=== PATIENT | female | born 1945 | race Hispanic/Latino ===

== ENCOUNTER 2018-05-09 15:57 | Observation (INO) | payer OTHER ==
--- NOTE | 2018-05-09 17:32 | RAD REPORT ---
EXAM DESCRIPTION: RAD - Chest Single View - 05/09/2018 5:24 pm CLINICAL HISTORY: Cough;Fever Chest pain. COMPARISON: CHEST SINGLE VIEW dated 07/11/2014; CHEST SINGLE VIEW dated 05/09/2012; CHEST PA AND LAT 2 VIEW dated 05/08/2012; CHEST SINGLE VIEW dated 05/08/2012; THORAX W CONTRAST dated 05/08/2012 FINDINGS: Portable technique limits examination quality. Airspace opacity is present in the left lung base laterally likely pneumonia. Small pleural effusion is also suspected. The heart is normal in size. No displaced fractures.Sternotomy wires noted. IMPRESSION: Lateral left lung base pneumonia.
[2018-05-09 17:53] LABS: Absolute Monocytes 0.5 K/uL (0.1-1.3); Absolute Neutrophil 3.9 K/uL (1.8-8.0); Hematocrit 30.2 % (36.0-45.0); Lymphocytes % 18.4 % (15.3-44.8); MCH 32.3 pg (27.0-35.0); MCV 91.5 fL (80-100); MPV 8.2 fL (7.6-11.3); Monocytes % 9.6 % (3.3-12.3); RBC Red Blood Cell Count 3.29 M/uL (3.86-4.86)
[2018-05-09 18:00] LABS: Protime INR 1.21
[2018-05-09 18:07] LABS: Albumin 3.1 g/dL (3.4-5.0); Bilirubin Direct 0.1 mg/dL (0-0.2); Bilirubin Total 0.4 mg/dL (0.2-1.0); CKMB Creatine Kinase MB 1.1 ng/mL (0.3-3.6); Potassium 3.8 mmol/L (3.5-5.1); Protein, Total 6.8 g/dL (6.4-8.2)
[2018-05-09] MEDS ORDERED: PIPER/TAZO/NS 3.375gm 3.375 GM/100 ML BAG ONE (18:12)
[2018-05-09] MEDS ORDERED: ALBUTEROL 2.5 MG/3 ML NEB SOL ONE (18:12)
[2018-05-09] MEDS ORDERED: HYDROCODONE/CHLORPHEN 5 ML/OSYR ONE (18:12)
[2018-05-09] MEDS ORDERED: IPRATROPIUM BROM 0.5MG/2.5ML ONE (18:12)
[2018-05-09] MEDS ORDERED: NA CHLORIDE 0.9% 1,000 ML ONE (18:12)
--- NOTE | 2018-05-09 20:03 | ER ---
Nurse's Notes [facility] Name: Alyson Ibarra Age: 72 yrs Sex: Female : 1945 Arrival Date: 05/09/2018 Time: 16:02 Bed 5 Private MD: Diagnosis: Pneumonia, unspecified organism Presentation: 05/09 16:20 Presenting complaint: Patient states: Cough for 2 weeks. She was seen at her doctors aj1 office last Friday and was given a Rx for a nebulizer, which she has been using and help but then the cough comes back. Reports chills. Transition of care: patient was not received from another setting of care. Onset of symptoms was April 2018. Risk Assessment: Do you want to hurt yourself or someone else? Patient reports no desire to harm self or others. Initial Sepsis Screen: Does the patient meet any 2 criteria? No. Patient's initial sepsis screen is negative. Does the patient have a suspected source of infection? No. Patient's initial sepsis screen is negative. Care prior to arrival: None. 16:20 Method Of Arrival: Ambulatory [facility] 16:20 Acuity: LETY 3 aj Triage Assessment: 16:28 General: Appears in no apparent distress. comfortable, Behavior is calm, cooperative, aj1 appropriate for age. Pain: Complains of pain in top of head and forehead Pain currently is 9 out of 10 on a pain scale. Quality of pain is described as pressure. Neuro: Level of Consciousness is awake, alert, obeys commands, Oriented to person, place, time, situation, Speech is normal, Facial symmetry appears normal. Cardiovascular: Patient's skin is warm and dry. Respiratory: Reports shortness of breath cough that is productive, Airway is patent Respiratory effort is even, unlabored, Respiratory pattern is regular, symmetrical. Historical: - Allergies: 16:28 Cipro; aj1 - Home Meds: 16:28 Albuterol Nebulizer [Active]; metoprolol succinate 50 mg oral Tb24 1 tab once daily aj1 [Active]; levocetirizine 5 mg oral tab 1 tab once daily [Active]; aspirin 81 mg Oral chew 1 tab once daily [Active]; furosemide 40 mg Oral tab 1.5 tabs once daily [Active]; gabapentin 100 mg oral cap 3 caps twice daily [Active]; losartan 25 mg oral tab 1 tab once daily [Active]; atorvastatin 40 mg oral tab 1 tab once daily [Active]; diphenoxylate-atropine 2.5-0.025 mg Oral tab 1 tabs 2 times per day [Active]; clopidogrel 75 mg oral tab 1 tab once daily [Active]; Lantus Sub-Q [Active]; - PMHx: 16:28 Hypertension; CHF; Diabetes - NIDDM; neuropathy; Hyperlipidemia; CAD; Myocardial aj1 infarction; COPD; - PSHx: 16:28 cardiac cath; open heart surgery; aj1 - Immunization history:: Flu vaccine is not up to date. - Social history:: Smoking status: Patient/guardian denies using tobacco. - Ebola Screening: : Patient denies travel to an Ebola-affected area in the 21 days before illness onset. Screenin:37 Abuse screen: Denies threats or abuse. Denies injuries from another. Nutritional ch screening: No deficits noted. Tuberculosis screening: No symptoms or risk factors identified. Fall Risk None identified. Assessment: 16:37 Reassessment: Patient appears in no apparent distress at this time. Patient and/or ch family updated on plan of care and expected duration. Pain level reassessed. Patient is alert, oriented x 3, equal unlabored respirations, skin warm/dry/pink. 16:48 General: Appears in no apparent distress. comfortable, Behavior is calm, cooperative, ch appropriate for age. Neuro: Level of Consciousness is awake, alert, obeys commands, Oriented to person, place, time, situation, [employer] are equal bilaterally Moves all extremities. Full function Gait is steady, Speech is normal, Facial symmetry appears normal, Facial symmetry: tongue is midline, Pupils are PERRLA. Cardiovascular: Reports shortness of breath, Heart tones S1 S2 present Capillary refill < 3 seconds in bilateral fingers toes Clubbing of nail beds is present Patient's skin is warm and dry. Pulses are all present. Edema is absent. Rhythm is sinus rhythm Chest pain is denied. Respiratory: Airway is patent Trachea midline Respiratory effort is even, unlabored, Breath sounds are clear bilaterally. Breath sounds are diminished in left posterior lower lobe pt states she just did a neb treatment nad that her wheezing went away with the neb treatment. Respiratory: Reports cough that is productive, yellow sputum. GI: Abdomen is round non-distended, Bowel sounds present X 4 quads. Abd is soft and non tender X 4 quads. Reports cramping, diarrhea, since years ago. Derm: Skin is pale. 16:50 Neuro: Reports headache in entire for the past two weeks. EENT: Reports nasal ch congestion sore throat. 18:39 Reassessment: Patient appears in no apparent distress at this time. Patient and/or ch family updated on plan of care and expected duration. Pain level reassessed. Patient is alert, oriented x 3, equal unlabored respirations, skin warm/dry/pink. Patient states feeling better. Patient states symptoms have improved. 18:39 Reassessment: Patient appears in no apparent distress at this time. ch 19:14 Reassessment: Patient appears in no apparent distress at this time. No changes from previously documented assessment. Patient and/or family updated on plan of care and expected duration. Pain level reassessed. Patient is alert, oriented x 3, equal unlabored respirations, skin warm/dry/pink. pt oob to restroom, ambulatory, gait steady, resps even and unlabored. Report given to Oksana HUYNH and Whitney HUYNH. 20:30 Reassessment: Patient appears in no apparent distress at this time. Patient is alert, lp1 oriented x 3, equal unlabored respirations, skin warm/dry/pink. Patient aware of pending admission Patient denies pain at this time. 21:40 Reassessment: Attempted to call report, nurse will call back. lp1 Vital Signs: 16:28 BP 126 / 73; Pulse 84; Resp 18; Temp 98.0(O); Pulse Ox 95% on R/A; Weight 86.18 kg (R); aj1 Height 5 ft. 5 in. (165.10 cm) (R); 16:48 BP 137 / 50; Pulse 81; Resp 18; Pulse Ox 97% on R/A; Pain 8/10; ch 18:39 BP 96 / 51; Pulse 89; Resp 18; Temp 98; Pulse Ox 97% on R/A; Pain 6/10; ch 20:04 BP 131 / 65; Pulse 88; Resp 18; Temp 97.3; Pulse Ox 97% on R/A; aa1 21:00 BP 101 / 67; Pulse 93; Resp 17; Pulse Ox 98% on R/A; lp1 21:30 BP 120 / 66; Pulse 89; Resp 17; Pulse Ox 98% on R/A; Pain 0/10; lp1 21:54 BP 155 / 72; Pulse 90; Resp 16; Temp 97.9; Pulse Ox 98% on R/A; Pain 0/10; lp1 16:28 Body Mass Index 31.62 (86.18 kg, 165.10 cm) aj1 ED Course: 16:02 Patient arrived in ED. mr 16:05 [facility] Cunningham [facility]C [facility]. snw 16:05 Jarrod Bonner MD is Attending Physician. snw 16:22 Triage completed. aj1 16:28 Arm band placed on. aj1 16:30 Patient placed in waiting room, Patient notified of wait time. aj1 16:37 Danuta Geiger, LINO is Primary Nurse. ch 16:37 No apparent distress. Resting quietly. ch 16:37 Patient has correct armband on for positive identification. Placed in gown. Bed in low ch position. Call light in reach. Side rails up X 1. Adult w/ patient. Pulse ox on. NIBP on. Warm blanket given. 16:37 No provider procedures requiring assistance completed. ch 17:10 First set of blood cultures drawn by me. jb1 17:24 Chest Single View XRAY In Process Unspecified. EDMS 17:25 Second set of blood cultures drawn by me. jb1 17:45 Initial lab(s) drawn, by me, sent to lab. Inserted saline lock: 22 gauge in right jb1 antecubital area, using aseptic technique. Blood collected. 20:02 Jarrod Bonner MD is Hospitalizing Provider. snw 21:51 Patient admitted, IV remains in place. lp1 Administered Medications: 18:10 Drug: Tussionex Pennkinetic ER 5 ml Route: PO; ch 18:37 Follow up: Response: No adverse reaction ch 18:43 Follow up: Response: No adverse reaction; Marked relief of symptoms ch 18:20 Drug: Zosyn 3.375 grams Route: IVPB; Infused Over: 60 mins; Site: right antecubital; ch 20:11 Follow up: IV Status: Completed infusion aa1 18:20 Drug: Albuterol - atroVENT (3:1) (2.5 mg - 0.5 mg) 3 ml Route: Nebulizer; ch 18:42 Follow up: Response: No adverse reaction; Marked relief of symptoms 18:20 Drug: NS 0.9% 250 ml Route: IV; Rate: 250 ml/hr; Site: right antecubital; 19:16 Follow up: IV Status: Completed infusion; IV Intake: 250ml ch 18:36 Not Given (wrong order): NS 0.9% (30 ml/kg) 30 ml/kg IV at bolus once; Sepsis Protocol ch Intake: 19:16 IV: 250ml; Total: 250ml. Outcome: 20:03 Decision to Hospitalize by Provider. snw 21:50 Condition: stable lp1 21:50 Instructed on the need for admit. 22:03 Admitted to Tele accompanied by tech, via wheelchair, room 405, with chart, Report lp1 called to LINO Hughes 22:10 Patient left the ED. lp1 Signatures: Dispatcher [employer] EDSalvador Alonso Christina, RN RN Juli Zapata RN RN aj1 Oksana Shipley RN RN aa1 Amira Cunningham, ACETYLENE TORCH BURNER-C ACETYLENE TORCH BURNER-Fior Borjas Laura, RN RN lp1
--- NOTE | 2018-05-09 20:03 | EDPHYS ---
Physician Documentation [facility] Name: Alyson Ibarra Age: 72 yrs Sex: Female : 1945 Arrival Date: 05/09/2018 Time: 16:02 Bed 5 Private MD: Jarrod Marie HPI: 05/09 17:52 This 72 yrs old Female presents to ER via Ambulatory with complaints of Fever, snw Cough. 17:52 The patient reports fever, not measured (subjective). Onset: The symptoms/episode snw began/occurred 2 week(s) ago, and became worse yesterday, and became persistent. Associated signs and symptoms: Pertinent positives: chest pain, cough, decreased appetite, myalgias. Severity of symptoms: At their worst the symptoms were moderate severe. The patient has not experienced similar symptoms in the past. The patient has been recently seen by a physician: the patient's primary care provider, yesterday. started neb treatments on Friday. Historical: - Allergies: 16:28 Cipro; aj1 - Home Meds: 16:28 Albuterol Nebulizer [Active]; metoprolol succinate 50 mg oral Tb24 1 tab once daily aj1 [Active]; levocetirizine 5 mg oral tab 1 tab once daily [Active]; aspirin 81 mg Oral chew 1 tab once daily [Active]; furosemide 40 mg Oral tab 1.5 tabs once daily [Active]; gabapentin 100 mg oral cap 3 caps twice daily [Active]; losartan 25 mg oral tab 1 tab once daily [Active]; atorvastatin 40 mg oral tab 1 tab once daily [Active]; diphenoxylate-atropine 2.5-0.025 mg Oral tab 1 tabs 2 times per day [Active]; clopidogrel 75 mg oral tab 1 tab once daily [Active]; Lantus Sub-Q [Active]; - PMHx: 16:28 Hypertension; CHF; Diabetes - NIDDM; neuropathy; Hyperlipidemia; CAD; Myocardial aj1 infarction; COPD; - PSHx: 16:28 cardiac cath; open heart surgery; aj1 - Immunization history:: Flu vaccine is not up to date. - Social history:: Smoking status: Patient/guardian denies using tobacco. - Ebola Screening: : Patient denies travel to an Ebola-affected area in the 21 days before illness onset. ROS: 17:51 Constitutional: Negative for fever, chills, and weight loss, Eyes: Negative for injury, snw pain, redness, and discharge, ENT: Negative for injury, pain, and discharge, Neck: Negative for injury, pain, and swelling, Abdomen/GI: Negative for abdominal pain, nausea, vomiting, diarrhea, and constipation, Back: Negative for injury and pain, : Negative for injury, bleeding, discharge, and swelling, MS/Extremity: Negative for injury and deformity, Skin: Negative for injury, rash, and discoloration, Neuro: Negative for headache, weakness, numbness, tingling, and seizure, Psych: Negative for depression, anxiety, suicide ideation, homicidal ideation, and hallucinations. 17:51 Cardiovascular: Positive for chest pain, with cough. 17:51 Respiratory: Positive for cough, shortness of breath. Exam: 17:44 Head/Face: Normocephalic, atraumatic. Eyes: Pupils equal round and reactive to light, snw extra-ocular motions intact. Lids and lashes normal. Conjunctiva and sclera are non-icteric and not injected. Cornea within normal limits. Periorbital areas with no swelling, redness, or edema. ENT: Nares patent. No nasal discharge, no septal abnormalities noted. Tympanic membranes are normal and external auditory canals are clear. Oropharynx with no redness, swelling, or masses, exudates, or evidence of obstruction, uvula midline. Mucous membranes moist. Neck: Trachea midline, no thyromegaly or masses palpated, and no cervical lymphadenopathy. Supple, full range of motion without nuchal rigidity, or vertebral point tenderness. No Meningismus. Chest/axilla: Normal chest wall appearance and motion. Nontender with no deformity. No lesions are appreciated. Cardiovascular: Regular rate and rhythm with a normal S1 and S2. No gallops, murmurs, or rubs. Normal PMI, no JVD. No pulse deficits. 17:44 Abdomen/GI: Soft, non-tender, with normal bowel sounds. No distension or tympany. No guarding or rebound. No evidence of tenderness throughout. Back: No spinal tenderness. No costovertebral tenderness. Full range of motion. MS/ Extremity: Pulses equal, no cyanosis. Neurovascular intact. Full, normal range of motion. Neuro: Awake and alert, GCS 15, oriented to person, place, time, and situation. Cranial nerves II-XII grossly intact. Motor strength 5/5 in all extremities. Sensory grossly intact. Cerebellar exam normal. Normal gait. 17:44 Constitutional: The patient appears alert, awake, pale. 17:44 Respiratory: the patient does not display signs of respiratory distress, Respirations: normal, shallow respirations, Breath sounds: rhonchi, that are moderate, are heard in the left lower lobe and left posterior lower lobe. 17:44 Skin: Appearance: Color: pale. Vital Signs: 16:28 BP 126 / 73; Pulse 84; Resp 18; Temp 98.0(O); Pulse Ox 95% on R/A; Weight 86.18 kg (R); aj1 Height 5 ft. 5 in. (165.10 cm) (R); 16:48 BP 137 / 50; Pulse 81; Resp 18; Pulse Ox 97% on R/A; Pain 8/10; ch 18:39 BP 96 / 51; Pulse 89; Resp 18; Temp 98; Pulse Ox 97% on R/A; Pain 6/10; ch 20:04 BP 131 / 65; Pulse 88; Resp 18; Temp 97.3; Pulse Ox 97% on R/A; aa1 21:00 BP 101 / 67; Pulse 93; Resp 17; Pulse Ox 98% on R/A; lp1 21:30 BP 120 / 66; Pulse 89; Resp 17; Pulse Ox 98% on R/A; Pain 0/10; lp1 21:54 BP 155 / 72; Pulse 90; Resp 16; Temp 97.9; Pulse Ox 98% on R/A; Pain 0/10; lp1 16:28 Body Mass Index 31.62 (86.18 kg, 165.10 cm) aj1 MDM: 16:41 Patient medically screened. [facility] 20:03 Data reviewed: vital signs, nurses notes. Data interpreted: Pulse oximetry: on room air snw is 97 %. Interpretation: normal. Counseling: I had a detailed discussion with the patient and/or guardian regarding: the historical points, exam findings, and any diagnostic results supporting the discharge/admit diagnosis, lab results, radiology results, the need for further work-up and treatment in the hospital. Physician consultation: Jaciel Rain MD was called at 20:03, was contacted at 20:04, regarding admission. 05/09 17:08 Order name: T\T\S; Complete Time: 18:44 snw 05/09 17:08 Order name: Basic Metabolic Panel; Complete Time: 18:35 snw 05/09 17:08 Order name: Blood Culture Adult (2) snw 05/09 17:08 Order name: CBC with Diff; Complete Time: 18:44 snw 05/09 17:08 Order name: Ckmb; Complete Time: 18:35 snw 05/09 17:08 Order name: CPK; Complete Time: 18:35 snw 05/09 17:08 Order name: Lactate; Complete Time: 18:35 snw 05/09 17:08 Order name: LFT's; Complete Time: 18:35 snw 05/09 17:08 Order name: Lipase; Complete Time: 18:35 snw 05/09 17:08 Order name: Procalcitonin; Complete Time: 18:35 snw 05/09 17:08 Order name: Protime (+inr); Complete Time: 18:35 snw 05/09 17:08 Order name: Ptt, Activated; Complete Time: 18:35 snw 05/09 17:08 Order name: Sed Rate; Complete Time: 18:44 snw 05/09 17:08 Order name: Troponin (emerg Dept Use Only); Complete Time: 18:35 snw 05/09 17:08 Order name: Chest Single View XRAY; Complete Time: 17:43 snw 05/09 18:48 Order name: ABO/RH no charge; Complete Time: 19:08 EDMS 05/09 19:29 Order name: Urine Dipstick--Ancillary (enter results); Complete Time: 20:04 cc 05/09 20:25 Order name: Lipid Profile EDMS 05/09 20:26 Order name: Lipid Profile EDMS 05/09 20:28 Order name: Basic Metabolic Panel EDMS 05/09 20:28 Order name: Basic Metabolic Panel EDMS 05/09 20:28 Order name: CBC with Automated Diff EDMS 05/09 20:28 Order name: CBC with Automated Diff EDMS 05/09 20:28 Order name: Magnesium EDMS 05/09 20:28 Order name: Magnesium EDMS 05/09 20:28 Order name: Phosphorus EDMS 05/09 20:28 Order name: Phosphorus EDMS 05/09 17:08 Order name: Accucheck; Complete Time: 17:47 snw 05/09 17:08 Order name: Cardiac monitoring; Complete Time: 17:47 snw 05/09 17:08 Order name: EKG - Nurse/Tech; Complete Time: 17:47 snw 05/09 17:08 Order name: IV Saline Lock - Large Bore; Complete Time: 17:47 snw 05/09 17:08 Order name: Labs collected and sent; Complete Time: 17:47 snw 05/09 17:08 Order name: O2 Per Protocol; Complete Time: 17:47 snw 05/09 17:08 Order name: O2 Sat Monitoring; Complete Time: 17:46 snw 05/09 17:08 Order name: Urine Dipstick-Ancillary (obtain specimen); Complete Time: 19:28 snw 04 20:28 Order name: Heart Healthy EDMS Administered Medications: 18:10 Drug: Tussionex Pennkinetic ER 5 ml Route: PO; ch 18:37 Follow up: Response: No adverse reaction ch 18:43 Follow up: Response: No adverse reaction; Marked relief of symptoms ch 18:20 Drug: Zosyn 3.375 grams Route: IVPB; Infused Over: 60 mins; Site: right antecubital; ch 20:11 Follow up: IV Status: Completed infusion aa1 18:20 Drug: Albuterol - atroVENT (3:1) (2.5 mg - 0.5 mg) 3 ml Route: Nebulizer; ch 18:42 Follow up: Response: No adverse reaction; Marked relief of symptoms ch 18:20 Drug: NS 0.9% 250 ml Route: IV; Rate: 250 ml/hr; Site: right antecubital; ch 19:16 Follow up: IV Status: Completed infusion; IV Intake: 250ml ch 18:36 Not Given (wrong order): NS 0.9% (30 ml/kg) 30 ml/kg IV at bolus once; Sepsis Protocol ch Disposition: 05/09/18 20:03 Hospitalization ordered by Jarrod Bonner for Observation. Preliminary diagnosis is Pneumonia, unspecified organism. - Bed requested for Telemetry/MedSurg (observation). - Status is Observation. lp1 - Condition is Stable. - Problem is new. - Symptoms are unchanged. UTI on Admission? No Addendum: 05/11/2018 14:11 Co-signature as Attending Physician, Jarrod Bonner MD I agree with the assessment and c mane plan of care. Signatures: Dispatcher [employer] EDDanuta Giang, RN RN Juli Mcbride RN RN aj1 Jarrod Bonner MD MD cha Therrien, Shelly, CORPORATE INTERN-C CORPORATE INTERN-Csnw Madisyn Justin Laura RN RN lp1 Oksana Shipley RN aa1 Corrections: (The following items were deleted from the chart) 05/09 21:49 20:03 Hospitalization Ordered by Jarrod Bonner MD for Observation. Preliminary cc diagnosis is Pneumonia, unspecified organism. Bed requested for Telemetry/MedSurg (observation). Status is Observation. Condition is Stable. Problem is new. Symptoms are unchanged. UTI on Admission? No. snw 22:10 21:49 05/09/2018 20:03 Hospitalization Ordered by Jarrod Bonner MD for Observation. lp1 Preliminary diagnosis is Pneumonia, unspecified organism. Bed requested for Telemetry/MedSurg (observation). Status is Observation. Condition is Stable. Problem is new. Symptoms are unchanged. UTI on Admission? No. cc
[2018-05-09 20:04] LABS: Urine Blood TRACE (NEG); Urine Glucose NEGATIVE (NEG); Urine Protein 1+ (NEG); Urine Specific Gravity 1.025 (1.005-1.030); Urine pH 5.5 (5.0-7.0)
[2018-05-09] MEDS ORDERED: ALBUTEROL 2.5 MG/3 ML NEB SOL NEB PRN (20:26)
[2018-05-09] MEDS ORDERED: ONDANSETRON 4 MG/2 ML VIAL IV PRN (20:26)
[2018-05-09] MEDS ORDERED: MAGNESIUM HYDROXIDE 8% 30 ML PO PRN (20:26)
[2018-05-09] MEDS ORDERED: ACETAMINOPHEN 500 MG TAB PO PRN (20:26)
[2018-05-09] MEDS: AMITRIPTYLINE 25 MG TAB PO SCH ×2 (21:00→23:03)
[2018-05-09] MEDS: TRAZODONE 50 MG TABLET PO SCH ×2 (21:00→23:03)
[2018-05-09 22:20] VITALS: BMI 31.1
[2018-05-09] MEDS: INSULIN 70/30 100 UNITS/ML SQ SCH (23:01)
[2018-05-09] MEDS: HYDROCODONE/APAP 5/325 MG TAB PO PRN (23:03)
[2018-05-09] MEDS: NA CHLORIDE 0.9% 1,000 ML IV SCH (23:03)
[2018-05-10] MEDS: PIPER/TAZO/NS 3.375gm 3.375 GM/100 ML BAG IVPB SCH ×2 (00:40→05:16)
[2018-05-10] MEDS ORDERED: PIPER/TAZO/NS 3.375gm 3.375 GM/100 ML BAG ONE ×2 (00:41→04:42)
[2018-05-10] MEDS: IPRATROPIUM BROM 0.5MG/2.5ML NEB SCH ×3 (01:07→13:13)
[2018-05-10 05:39] LABS: Absolute Lymphocytes (CBC) 1.4 K/uL (0.7-4.9); Absolute Monocytes 0.7 K/uL (0.1-1.3); Absolute Neutrophil 3.7 K/uL (1.8-8.0); Basophils % 0.9 % (0-1.3); Eosinophils % 1.9 % (0-4.4); Hematocrit 25.5 % (36.0-45.0); Lymphocytes % 23.5 % (15.3-44.8); MCH 32.3 pg (27.0-35.0); MCV 90.9 fL (80-100); MPV 8.1 fL (7.6-11.3); Monocytes % 11.7 % (3.3-12.3)
[2018-05-10 05:59] LABS: Magnesium 1.7 mg/dL (1.8-2.4); Phosphorus 3.4 mg/dL (2.5-4.9); Potassium 3.8 mmol/L (3.5-5.1)
[2018-05-10] MEDS ORDERED: MAGNESIUM SULFATE 1 gm IVPB 1 GM/100 ML BAG IV ONE ×2 (06:01→09:00)
[2018-05-10] MEDS ORDERED: POTASSIUM CL SA 10 MEQ TAB PO ONE (06:02)
[2018-05-10 06:22] VITALS: BP 113/56; TEMP 97.5
[2018-05-10] MEDS ORDERED: METHYLPREDNISOLONE 125 MG INJ IV ONE (07:43)
[2018-05-10] MEDS ORDERED: GUAIFENESIN/CODEINE 5ML UCUP PO PRN (07:43)
--- NOTE | 2018-05-10 07:51 | P.HP ---
Certification for Inpatient Patient admitted to: Inpatient With expected LOS: >2 Midnights Patient will require the following post-hospital care: None Practitioner: I am a practitioner with admitting privileges, knowledge of patient current condition, hospital course, and medical plan of care. Services: Services provided to patient in accordance with Admission requirements found in Title 42 Section 412.3 of the Code of Federal Regulations Patient History Date of Service: 05/09/18 Reason for admission: Left lower lobe pneumonia History of Present Illness: Patient is a 72-year-old female who presented to the hospital with cough and shortness of breath. Patient has been having fever, shakes, and chills. Patient was tall the she may have a upper respiratory infection. She went to the emergency room for further evaluation. Her workup in the emergency room revealed that she had a left lower lobe pneumonia. Patient will be admitted to the hospital for further workup. Patient has been having persistent cough and discomfort on deep inspiration. She was a smoker for many years but just quit about 4 years ago. She has had a cardiac bypass surgery which she is not really sure exactly how many arteries were bypassed. She mentions that she only has 2 arteries around her heart. I am not sure if this means that she had a 2 vessel coronary artery bypass grafting surgery. At this time, will go ahead and treat her for the pneumonia. She has had a strong history of smoking I believe she may have an underlying COPD exacerbation. There is a possible small pleural effusion as well. Will go ahead and treat her with antibiotics along with neb treatments and a dose of steroids. Hopefully, her clinical condition continued to improve. Allergies ciprofloxacin [From Cipro] Allergy (Intermediate, Verified 05/09/18 23:46) Itching Home Medications: Aspirin 81 mg PO DAILY 05/09/18 Atorvastatin Calcium [Lipitor] 40 mg PO BEDTIME 05/09/18 Diphenoxylate HCl/Atropine [Diphenoxylate-Atrop 2.5-0.025] 1 each PO BID Furosemide [Lasix] 60 mg PO DAILY 05/09/18 Gabapentin [Neurontin] 100 mg PO TID 05/09/18 Insulin Glargine Human [Lantus*] 52 units SQ BID 05/09/18 Levocetirizine Dihydrochloride [Xyzal] 5 mg PO DAILY 05/09/18 Losartan Potassium 25 mg PO DAILY 05/09/18 Metoprolol Succinate [Toprol Xl] 50 mg PO DAILY 05/09/18 - Past Medical/Surgical History Has patient received pneumonia vaccine in the past: No Diabetic: Yes -: Hypertension -: CHF -: IDDM -: neuropathy -: hyperlipidemia -: CAD -: CA -: COPD -: cardiac cath -: open heart sx -: BRITTNY knee sx - Family History Mother Medical History: Diabetes Father Medical History: Diabetes - Social History Smoking Status: Former smoker Alcohol use: No CD- Drugs: No Caffeine use: Yes Place of Residence: Home Review of Systems 10-point ROS is otherwise unremarkable Physical Examination - Vital Signs Temperature: 97.5 F Blood Pressure: 113/56 Pulse: 75 Respirations: 18 Pulse Ox (%): 96 - Physical Exam General: Alert, In no apparent distress, Oriented x3 HEENT: Atraumatic, PERRLA, Mucous membr. moist/pink, EOMI, Sclerae nonicteric Neck: Supple, 2+ carotid pulse no bruit, No LAD, Without JVD or thyroid abnormality Respiratory: Diminished, Expiratory wheezes, Rhonchi/gurgles Cardiovascular: Regular rate/rhythm, Normal S1 S2, No murmurs Gastrointestinal: Normal bowel sounds, Soft and benign, Non-distended, No tenderness Musculoskeletal: No clubbing, No swelling, No tenderness Integumentary: No rashes Neurological: Normal speech, Normal strength at 5/5 x4 extr, Normal tone, Sensation intact, Normal affect, Abnormal gait Lymphatics: No axilla or inguinal lymphadenopathy - Studies Laboratory Data (last 24 hrs) 05/09/18 17:25: PT 14.3 H, INR 1.21, APTT 34.3 05/09/18 17:25: WBC 5.7, Hgb 10.6 L, Hct 30.2 L, Plt Count 279 05/09/18 17:25: Sodium 144, Potassium 3.8, BUN 17, Creatinine 1.10, Glucose 249 H, Total Bilirubin 0.4, AST 15, ALT 16, Alkaline Phosphatase 147 H, Lipase 107 Assessment & Plan - Problems (Diagnosis) (1) Left lower lobe pneumonia Current Visit: Yes Status: Acute (2) Status post coronary artery bypass graft Current Visit: Yes Status: Acute (3) Coronary artery disease Current Visit: Yes Status: Acute (4) Hypertension Current Visit: Yes Status: Acute (5) Chronic obstructive pulmonary disease with (acute) exacerbation Current Visit: Yes Status: Acute - Plan Plan: 1. Continue with IV antibiotics 2. Continue with neb treatments 3. O2 per protocol 4. IV steroids along with repeat of the chest x-ray; may need to consider imaging study 5. Monitor hemodynamics closely 6. Strict blood pressure and blood sugar control 7. Gently hydrate as needed 8. GI and DVT prophylaxis Discharge Plan: Home Plan to discharge in: Greater than 2 days - Advance Directives Does patient have a Living Will: No Does patient have a Durable POA for Healthcare: No - Code Status/Comfort Care Code Status Assessed: Yes Code Status: Full Code Critical Care: No Time Spent Managing PTS Care (In Minutes): 50
[2018-05-10] MEDS ORDERED: PNEUMOCOCCAL VACCINE 0.5 ML IMVAC ONE (08:00)
[2018-05-10] MEDS: INSULIN 70/30 100 UNITS/ML SQ SCH (09:00)
[2018-05-10] MEDS: CITALOPRAM 10 MG TABLET PO SCH ×2 (09:00→09:48)
[2018-05-10] MEDS ORDERED: ENOXAPARIN 40 MG/0.4 ML SQ SCH (09:00)
[2018-05-10] MEDS: HYDROCODONE/APAP 5/325 MG TAB PO PRN (09:51)
--- NOTE | 2018-05-10 10:37 | EKG ---
Test Date: 2018-05-09 Test Time: 17:55:23 Banquet Stewardess: TOYA MEASUREMENT RESULTS: Intervals: Rate: 84 CT: 170 QRSD: 84 QT: 398 QTc: 470 Albright: P: 40 CT: 170 QRS: -10 T: 133 INTERPRETIVE STATEMENTS: Sinus rhythm with marked sinus arrhythmia Septal infarct, age undetermined T wave abnormality, consider lateral ischemia Abnormal ECG Compared to ECG 07/11/2014 15:15:50 Myocardial infarct finding now present Possible ischemia now present T-wave abnormality still present Electronically Signed On 05-10-18 10:36:50 CDT by Kelby Mesa
[2018-05-10] MEDS: NA CHLORIDE 0.9% 1,000 ML IV SCH (10:58)
--- NOTE | 2018-05-10 13:00 | P.SSS ---
Patient History Date of Service: 05/10/18 Reason for admission: Left lower lobe pneumonia History of Present Illness: Patient is a 72-year-old female who presented to the hospital with cough and shortness of breath. Patient has been having fever, shakes, and chills. Patient was tall the she may have a upper respiratory infection. She went to the emergency room for further evaluation. Her workup in the emergency room revealed that she had a left lower lobe pneumonia. Patient will be admitted to the hospital for further workup. Patient has been having persistent cough and discomfort on deep inspiration. She was a smoker for many years but just quit about 4 years ago. She has had a cardiac bypass surgery which she is not really sure exactly how many arteries were bypassed. She mentions that she only has 2 arteries around her heart. I am not sure if this means that she had a 2 vessel coronary artery bypass grafting surgery. At this time, will go ahead and treat her for the pneumonia. She has had a strong history of smoking I believe she may have an underlying COPD exacerbation. There is a possible small pleural effusion as well. Will go ahead and treat her with antibiotics along with neb treatments and a dose of steroids. Hopefully, her clinical condition continued to improve. Allergies ciprofloxacin [From Cipro] Allergy (Intermediate, Verified 05/09/18 23:46) Itching Home Medications: Aspirin 81 mg PO DAILY 05/09/18 Atorvastatin Calcium [Lipitor] 40 mg PO BEDTIME 05/09/18 Diphenoxylate HCl/Atropine [Diphenoxylate-Atrop 2.5-0.025] 1 each PO BID Furosemide [Lasix] 60 mg PO DAILY 05/09/18 Gabapentin [Neurontin] 100 mg PO TID 05/09/18 Insulin Glargine Human [Lantus*] 52 units SQ BID 05/09/18 Levocetirizine Dihydrochloride [Xyzal] 5 mg PO DAILY 05/09/18 Losartan Potassium 25 mg PO DAILY 05/09/18 Metoprolol Succinate [Toprol Xl] 50 mg PO DAILY 05/09/18 - Past Medical/Surgical History Has patient received pneumonia vaccine in the past: No Diabetic: Yes -: Hypertension -: CHF -: IDDM -: neuropathy -: hyperlipidemia -: CAD -: AR -: COPD -: cardiac cath -: open heart sx -: BRITTNY knee sx - Family History Mother -: Diabetes Father -: Diabetes - Social History Smoking Status: Former smoker Alcohol use: No CD- Drugs: No Caffeine use: Yes Place of Residence: Home Review of Systems General: As per HPI Physical Examination - Vital Signs Temperature: 97.5 F Blood Pressure: 113/56 Pulse: 75 Respirations: 18 Pulse Ox (%): 96 - Physical Exam General: Alert, In no apparent distress HEENT: Atraumatic, PERRLA, Mucous membr. moist/pink, EOMI, Sclerae nonicteric Neck: Supple, 2+ carotid pulse no bruit, No LAD, Without JVD or thyroid abnormality Respiratory: Clear to auscultation bilaterally, Normal air movement Cardiovascular: Regular rate/rhythm, Normal S1 S2 Gastrointestinal: Normal bowel sounds, No tenderness Musculoskeletal: No tenderness Integumentary: No rashes Neurological: Normal gait, Normal speech, Normal strength at 5/5 x4 extr, Normal tone, Normal affect Lymphatics: No axilla or inguinal lymphadenopathy - Studies Laboratory Data (last 24 hrs) 05/09/18 17:25: PT 14.3 H, INR 1.21, APTT 34.3 05/09/18 17:25: WBC 5.7, Hgb 10.6 L, Hct 30.2 L, Plt Count 279 05/09/18 17:25: Sodium 144, Potassium 3.8, BUN 17, Creatinine 1.10, Glucose 249 H, Total Bilirubin 0.4, AST 15, ALT 16, Alkaline Phosphatase 147 H, Lipase 107 - Diagnosis (Problem(s)) (1) Left lower lobe pneumonia Current Visit: Yes Status: Acute Plan: LLPNA most likely CAP -DC on azithromycin for azithromycin antibiotics for now -F.u with PCP in 1 to 2 days post discharge Qualifiers: Pneumonia type: due to unspecified organism Qualified Code(s): J18.1 - Lobar pneumonia, unspecified organism (2) Chronic obstructive pulmonary disease with (acute) exacerbation Current Visit: Yes Status: Acute Plan: Acute worsening -Pt not taking her Maintence Inhaler. Advice to take the inhaler. 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 On RA saturating well (3) Coronary artery disease Current Visit: Yes Status: Chronic Qualifiers: Coronary Disease-Associated Artery/Lesion type: [place] artery [place] vs. transplanted heart: [place] heart Associated angina: without angina Qualified Code(s): I25.10 - Atherosclerotic heart disease of [place] coronary artery without angina pectoris (4) Hypertension Current Visit: Yes Status: Chronic Qualifiers: Hypertension type: essential hypertension Qualified Code(s): I10 - Essential (primary) hypertension (5) Status post coronary artery bypass graft Current Visit: Yes Status: Acute - Disposition Disposition: ROUTINE DISCHARGE Condition: GOOD Patient Discharge Instructions: Please f.u with PCP and Dr Elliott in 1 to 2 week post discharge. You can also f.u with a electronics instructor in [facility]. Diet: Regular Activity: Ad mary
[2018-05-10 13:49] VITALS: O2SAT 100
[2018-05-10] MEDS ORDERED: PIPER/TAZO/NS 3.375gm 3.375 GM/100 ML BAG IVPB SCH (14:00)
[2018-05-10] MEDS ORDERED: GABAPENTIN 100 MG CAP PO SCH (14:00)
[2018-05-10] MEDS ORDERED: DIPHENOX/ATROP SULF 1 TAB PO SCH (21:00)
[2018-05-10] MEDS ORDERED: ATORVASTATIN 40 MG TAB PO SCH (21:00)
[2018-05-11] MEDS ORDERED: ASPIRIN 81 MG CHEWABLE TABLET PO SCH (09:00)
[2018-05-11] MEDS ORDERED: LOSARTAN POTASSIUM 50 MG TABLET PO SCH (09:00)
[2018-05-11] MEDS ORDERED: HOME MED 1 EA UNK (Levocetirizine Dihydrochloride [Xyzal] 5 MG) PO SCH (09:00)
[2018-05-11] MEDS ORDERED: CETIRIZINE HCL 5 MG TABLET PO SCH (09:00)
[2018-05-11] MEDS ORDERED: FUROSEMIDE 40 MG TABLET PO SCH (09:00)
[2018-05-11] MEDS ORDERED: METOPROLOL XL 50 MG TAB PO SCH (09:00)
== END 2018-05-10 15:10 | disposition home or self-care (01) ==
LOC: ER 15:57 → ERHOLD 20:59 → 4TH 22:04
PROVIDERS: ADMIT Hospitalist; ATTEND Family Medicine
DX: J18.9 Pneumonia, unspecified organism (principal); I50.9 Heart failure, unspecified; E11.40 Type 2 diabetes mellitus with diabetic neuropathy, unspecified; E78.5 Hyperlipidemia, unspecified; J44.0 Chronic obstructive pulmonary disease with (acute) lower respiratory infection; J44.1 Chronic obstructive pulmonary disease with (acute) exacerbation; I25.10 Atherosclerotic heart disease of native coronary artery without angina pectoris; I11.0 Hypertensive heart disease with heart failure; I25.2 Old myocardial infarction; Z87.891 Personal history of nicotine dependence; Z95.1 Presence of aortocoronary bypass graft; Z88.1 Allergy status to other antibiotic agents; Z79.82 Long term (current) use of aspirin; Z79.4 Long term (current) use of insulin; Z23 Encounter for immunization
CPT/HCPCS: 36415; 71045; 80048 ×2; 80061; 80076; 81003; 82550; 82553; 82962 ×3; 83605; 83690; 83735; 84100; 84145; 84484; 85025 ×2; 85610; 85652; 85730; 86850; 86900; 86901; 87040 ×2; 87070; 87205; 90670; 93005; 94640 ×2; 94760; 96361; 96365; 96366; 99285; G0009; G0378 ×2; J1650; J2543 ×3; J2930; J3475; J7030 ×3; 96368

== ENCOUNTER 2019-10-10 17:54 | Inpatient (IN) | payer OTHER ==
[2019-10-10] MEDS ORDERED: PANTOPRAZOLE 40 MG INJ ONE ×2 (18:44→19:03)
[2019-10-10] MEDS ORDERED: NA CHLORIDE 0.9% 1,000 ML ONE (18:45)
[2019-10-10 19:05] LABS: Absolute Lymphocytes (CBC) 1.1 K/uL (0.7-4.9); Basophils % 0.7 % (0-1.3); Hematocrit 29.2 % (36.0-45.0); Lymphocytes % 23.2 % (15.3-44.8); MPV 9.1 fL (7.6-11.3); Protime INR 1.08; RBC Red Blood Cell Count 3.19 M/uL (3.86-4.86)
[2019-10-10 19:23] LABS: ALT/SGPT 31 U/L (12-78); AST/SGOT 18 U/L (15-37); Alkaline Phosphatase 108 U/L (45-117); BUN Blood Urea Nitrogen 32 mg/dL (7-18); Bicarbonate 23 mmol/L (21-32); Bilirubin Direct < 0.1 mg/dL (0-0.2); Bilirubin Total 0.3 mg/dL (0.2-1.0); Glucose Level 177 mg/dL (74-106); Lipase 88 U/L (73-393); Magnesium 1.8 mg/dL (1.8-2.4); NT PRO-BNP 1400 pg/mL (<450); Potassium 4.4 mmol/L (3.5-5.1); Protein, Total 6.1 g/dL (6.4-8.2); Sodium Level 147 mmol/L (136-145); Troponin (Emerg Dept Use Only) < 0.02 ng/mL (0.0-0.045)
--- NOTE | 2019-10-10 19:48 | RAD REPORT ---
EXAM DESCRIPTION: RAD - Chest Single View - 10/10/2019 7:29 pm CLINICAL HISTORY: COUGH Chest pain. COMPARISON: Chest Single View dated 05/09/2018; CHEST SINGLE VIEW dated 07/11/2014; CHEST SINGLE VIEW d ated 05/09/2012; CHEST PA AND LAT 2 VIEW dated 05/08/2012 FINDINGS: Portable technique limits examination quality. Mild interstitial pulmonary edema. The heart is moderately enlarged with sternotomy wires present. No displaced fractures. IMPRESSION: Mild CHF versus volume overload pattern.
--- NOTE | 2019-10-10 20:03 | ER ---
Nurse's Notes [facility] Name: Alyson Ibarra Age: 74 yrs Sex: Female : 1945 Arrival Date: 10/10/2019 Time: 17:59 Bed 8 Private MD: Diagnosis: Unspecified combined systolic (congestive) and diastolic (congestive) heart failure;Unspecified kidney failure;Diarrhea, unspecified;Anemia, unspecified;Gastrointestinal hemorrhage, unspecified-stable Presentation: 10/10 18:14 Presenting complaint: Patient states: Diarrhea x 1 week, cough and headache x 2 days. ca1 Reports chills and fever at night, nausea. Denies vomiting. C/O epigastric pain at this time. Transition of care: patient was not received from another setting of care. Onset of symptoms was October 10, 2019. Risk Assessment: Do you want to hurt yourself or someone else? Patient reports no desire to harm self or others. Initial Sepsis Screen: Does the patient meet any 2 criteria? No. Patient's initial sepsis screen is negative. Does the patient have a suspected source of infection? No. Patient's initial sepsis screen is negative. Care prior to arrival: None. 18:14 Method Of Arrival: Ambulatory ca1 18:14 Acuity: LETY 3 ca1 Historical: - Allergies: 18:18 Cipro; ca1 - Home Meds: 18:22 Albuterol Inhl [Active]; aspirin 81 mg Oral chew 1 tab once daily [Active]; tw2 atorvastatin 40 mg Oral tab 1 tab once daily [Active]; clopidogrel 75 mg Oral tab 1 tab once daily [Active]; diphenoxylate-atropine 2.5-0.025 mg Oral tab 1 tabs 2 times per day [Active]; furosemide 40 mg Oral tab 1.5 tabs once daily [Active]; gabapentin 100 mg Oral cap 3 caps twice daily [Active]; Lantus Sub-Q [Active]; levocetirizine 5 mg Oral tab 1 tab once daily [Active]; losartan 25 mg Oral tab 1 tab once daily [Active]; metoprolol succinate 50 mg Oral Tb24 1 tab once daily [Active]; - PMHx: 18:18 CAD; CHF; COPD; Diabetes - IDDM; Hyperlipidemia; Hypertension; Myocardial infarction; ca1 neuropathy; - PSHx: 18:18 cardiac cath; open heart surgery; ; ca1 - Immunization history:: Adult Immunizations not up to date, Pneumococcal vaccine is up to date, Flu vaccine is not up to date. Patient has never been vaccinated. - Social history:: Smoking status: Patient/guardian denies using tobacco. - Ebola Screening: : Patient negative for fever greater than or equal to 101.5 degrees Fahrenheit, and additional compatible Ebola Virus Disease symptoms Patient denies exposure to infectious person Patient denies travel to an Ebola-affected area in the 21 days before illness onset No symptoms or risks identified at this time. - Family history:: not pertinent. Screenin:22 Abuse screen: Denies threats or abuse. Nutritional screening: No deficits noted. tw2 Tuberculosis screening: No symptoms or risk factors identified. Fall Risk None identified. Assessment: 18:24 Reassessment: pt in w/c at this time, needing to go to bathroom for BM at this time. tw2 18:30 General: Appears in no apparent distress. Behavior is calm, cooperative, appropriate tw2 for age. Pain: Denies pain. Neuro: Level of Consciousness is awake, alert, obeys commands, Oriented to person, place, time, situation. Cardiovascular: Heart tones S1 S2 Patient's skin is warm and dry. Respiratory: Airway is patent Respiratory effort is even, unlabored, Respiratory pattern is regular, symmetrical, Breath sounds are clear bilaterally. Respiratory: Reports cough that is. GI: Reports diarrhea. GI: Bowel sounds present X 4 quads. : No signs and/or symptoms were reported regarding the genitourinary system. EENT: No signs and/or symptoms were reported regarding the EENT system. Derm: No signs and/or symptoms reported regarding the dermatologic system. Musculoskeletal: Range of motion: intact in all extremities. 19:10 Reassessment: Patient appears in no apparent distress at this time. Patient and/or aa1 family updated on plan of care and expected duration. Pain level reassessed. Patient is alert, oriented x 3, equal unlabored respirations, skin warm/dry/pink. Awaiting CT scan. Notified Verónica in CT that pt finished PO contrast. 21:15 Reassessment: Patient appears in no apparent distress at this time. Patient and/or aa1 family updated on plan of care and expected duration. Pain level reassessed. Patient is alert, oriented x 3, equal unlabored respirations, skin warm/dry/pink. Pt taken to CT at this time. 21:22 Reassessment: Pt back from CT at this time. aa1 21:48 Reassessment: Patient appears in no apparent distress at this time. Patient and/or aa1 family updated on plan of care and expected duration. Pain level reassessed. Patient is alert, oriented x 3, equal unlabored respirations, skin warm/dry/pink. Report given to LINO Will on 2nd floor. Vital Signs: 18:18 BP 94 / 50; Pulse 82; Resp 17 S; Temp 98.3(O); Pulse Ox 99% on R/A; Weight 88.9 kg (R); ca1 Height 5 ft. 5 in. (165.10 cm) (R); Pain 9/10; 19:27 BP 117 / 60; Pulse 72; Resp 18; Pulse Ox 100% on R/A; aa1 21:48 BP 139 / 69; Pulse 69; Resp 16; Temp 98.1; Pulse Ox 100% on R/A; Pain 0/10; aa1 18:18 Body Mass Index 32.62 (88.90 kg, 165.10 cm) ca1 ED Course: 17:59 Patient arrived in ED. mr 18:16 Triage completed. ca1 18:18 Arm band placed on right wrist. ca1 18:20 Jenise Fang RN is Primary Nurse. tw2 18:23 Jarrod Bonner MD is Attending Physician. carey 18:24 Call light in reach. tw2 18:49 Inserted saline lock: 22 gauge in right antecubital area, using aseptic technique. tw2 Blood collected. 18:50 Served as a prizer hand during rectal exam. tw2 19:05 Report given to LINO Gandhi - outstanding is need for urine and stool sample, and tw2 additional 40 mg IV Protonix needs to be given. 19:27 XRAY Chest (1 view) In Process Unspecified. EDMS 20:01 Jaciel Rain MD is Hospitalizing Provider. carey 20:35 Cleaned of incontinence. Linen changed. cm6 20:39 Cleaned of incontinence. Linen changed. cm6 20:44 patient continues to have multiple episodes of diarrhea during coughing spells. cm6 20:46 Cleaned of incontinence. Linen changed. cm6 20:55 Cleaned of incontinence. Linen changed. cm6 21:02 Assisted to bedside commode. Cleaned of incontinence. Linen changed. patient continues cm6 to have incontinence every time she has a coughing spell patient was taken to CT she also urinated as well. 21:42 Patient admitted, IV remains in place. aa1 Administered Medications: 18:47 Not Given (Duplicate Order): ProTONIX 40 mg IVP [facility] 18:49 Drug: NS 0.9% 500 ml Route: IV; Rate: bolus; Site: right antecubital; tw2 19:27 Follow up: IV Status: Completed infusion; IV Intake: 500ml aa1 18:49 Drug: ProTONIX 40 mg Route: IVP; Site: right antecubital; tw2 21:13 Follow up: Response: No adverse reaction; No change in condition aa1 18:57 CANCELLED (Duplicate Order): ProTONIX 80 mg IVP once tw2 19:08 Drug: ProTONIX 40 mg Route: IVP; Site: right antecubital; aa1 21:13 Follow up: Response: No adverse reaction; No change in condition aa1 19:27 Drug: NS 0.9% 1000 ml Route: IV; Rate: 125 ml/hr; Site: right antecubital; aa1 21:42 Follow up: IV Status: Infusion continued upon admission aa1 Intake: 19:27 IV: 500ml; Total: 500ml. aa1 Outcome: 20:02 Decision to Hospitalize by Provider. carey 22:15 Admitted to [facility] accompanied by [facility], via wheelchair, room 215, with chart, Report aa1 called to LINO Will 22:15 Condition: stable 22:15 Discharge instructions given to patient, Instructed on the need for admit, Demonstrated understanding of instructions. 22:16 Patient left the ED. aa1 Signatures: Dispatcher [employer] EDMS Oksana Santiago RN RN aa1 Jarrod Bonner MD MD cha Rivera, Inessa mr Jenise Fang RN RN tw2 Erin Dolan RN RN Kristyn Meehan cm6 Corrections: (The following items were deleted from the chart) 21:25 21:21 Cleaned of incontinence. Linen changed. cm6 cm6 21:25 21:21 patient continues to have multiple episodes of diarrhea during coughing spells. cm6 cm6 21:25 21:23 Cleaned of incontinence. Linen changed. cm6 cm6
--- NOTE | 2019-10-10 20:04 | EDPHYS ---
Physician Documentation [facility] Name: Alyson Ibarra Age: 74 yrs Sex: Female : 1945 Arrival Date: 10/10/2019 Time: 17:59 Bed 8 Private MD: RUBINA Physician Jarrod Bonner HPI: 10/10 18:39 This 74 yrs old Female presents to ER via Ambulatory with complaints of Cough, carey Diarrhea. 18:39 The patient or guardian reports cough. Modifying factors: The symptoms are alleviated carey by nothing, the symptoms are aggravated by nothing. 18:40 The patient presents with abdominal distention in the upper abdomen, in the lower carey abdomen. Onset: The symptoms/episode began/occurred 3 day(s) ago. The patient presents to the emergency department with nausea, diarrhea, abdominal pain, of the right upper quadrant, left upper quadrant, right lower quadrant and left lower quadrant. Onset: The symptoms/episode began/occurred 3 day(s) ago. Possible causes: unknown. The symptoms are aggravated by food , The symptoms are alleviated by nothing. Severity of symptoms: At their worst the symptoms were mild, moderate, in the emergency department the symptoms are unchanged. Historical: - Allergies: 18:18 Cipro; ca1 - Home Meds: 18:22 Albuterol Inhl [Active]; aspirin 81 mg Oral chew 1 tab once daily [Active]; tw2 atorvastatin 40 mg Oral tab 1 tab once daily [Active]; clopidogrel 75 mg Oral tab 1 tab once daily [Active]; diphenoxylate-atropine 2.5-0.025 mg Oral tab 1 tabs 2 times per day [Active]; furosemide 40 mg Oral tab 1.5 tabs once daily [Active]; gabapentin 100 mg Oral cap 3 caps twice daily [Active]; Lantus Sub-Q [Active]; levocetirizine 5 mg Oral tab 1 tab once daily [Active]; losartan 25 mg Oral tab 1 tab once daily [Active]; metoprolol succinate 50 mg Oral Tb24 1 tab once daily [Active]; - PMHx: 18:18 CAD; CHF; COPD; Diabetes - IDDM; Hyperlipidemia; Hypertension; Myocardial infarction; ca1 neuropathy; - PSHx: 18:18 cardiac cath; open heart surgery; ; ca1 - Immunization history:: Adult Immunizations not up to date, Pneumococcal vaccine is up to date, Flu vaccine is not up to date. Patient has never been vaccinated. - Social history:: Smoking status: Patient/guardian denies using tobacco. - Ebola Screening: : Patient negative for fever greater than or equal to 101.5 degrees Fahrenheit, and additional compatible Ebola Virus Disease symptoms Patient denies exposure to infectious person Patient denies travel to an Ebola-affected area in the 21 days before illness onset No symptoms or risks identified at this time. - Family history:: not pertinent. ROS: 18:40 Constitutional: Negative for fever, chills, and weight loss, Eyes: Negative for injury, carey pain, redness, and discharge, ENT: Negative for injury, pain, and discharge, Neck: Negative for injury, pain, and swelling, Cardiovascular: Negative for chest pain, palpitations, and edema, Respiratory: Negative for shortness of breath, cough, wheezing, and pleuritic chest pain, Back: Negative for injury and pain, : Negative for injury, bleeding, discharge, and swelling, MS/Extremity: Negative for injury and deformity, Skin: Negative for injury, rash, and discoloration, Neuro: Negative for headache, weakness, numbness, tingling, and seizure, Psych: Negative for depression, anxiety, suicide ideation, homicidal ideation, and hallucinations, Allergy/Immunology: Negative for hives, rash, and allergies, Endocrine: Negative for neck swelling, polydipsia, polyuria, polyphagia, and marked weight changes, Hematologic/Lymphatic: Negative for swollen nodes, abnormal bleeding, and unusual bruising. 18:40 Abdomen/GI: Positive for abdominal pain, of the right upper quadrant, left upper quadrant, right lower quadrant and left lower quadrant. Exam: 18:40 Constitutional: This is a well developed, well nourished patient who is awake, alert, carey and in no acute distress. Head/Face: Normocephalic, atraumatic. Eyes: Pupils equal round and reactive to light, extra-ocular motions intact. Lids and lashes normal. Conjunctiva and sclera are non-icteric and not injected. Cornea within normal limits. Periorbital areas with no swelling, redness, or edema. ENT: Nares patent. No nasal discharge, no septal abnormalities noted. Tympanic membranes are normal and external auditory canals are clear. Oropharynx with no redness, swelling, or masses, exudates, or evidence of obstruction, uvula midline. Mucous membranes moist. Neck: Trachea midline, no thyromegaly or masses palpated, and no cervical lymphadenopathy. Supple, full range of motion without nuchal rigidity, or vertebral point tenderness. No Meningismus. Chest/axilla: Normal chest wall appearance and motion. Nontender with no deformity. No lesions are appreciated. Cardiovascular: Regular rate and rhythm with a normal S1 and S2. No gallops, murmurs, or rubs. Normal PMI, no JVD. No pulse deficits. Respiratory: Lungs have equal breath sounds bilaterally, clear to auscultation and percussion. No rales, rhonchi or wheezes noted. No increased work of breathing, no retractions or nasal flaring. Back: No spinal tenderness. No costovertebral tenderness. Full range of motion. Female : Normal external genitalia. MS/ Extremity: Pulses equal, no cyanosis. Neurovascular intact. Full, normal range of motion. Neuro: Awake and alert, GCS 15, oriented to person, place, time, and situation. Cranial nerves II-XII grossly intact. Motor strength 5/5 in all extremities. Sensory grossly intact. Cerebellar exam normal. Normal gait. Psych: Awake, alert, with orientation to person, place and time. Behavior, mood, and affect are within normal limits. 18:40 Abdomen/GI: Inspection: distension, Bowel sounds: active, all quadrants, Palpation: mild abdominal tenderness, in the right upper quadrant, left upper quadrant, right lower quadrant and left lower quadrant, Liver: no appreciated palpable abnormalities, Hernia: not appreciated. 18:48 Abdomen/GI: Rectal exam: is unremarkable, rectal tone normal, Stool: guaiac positive, carey hemorrhoid(s), are not appreciated, mass, is not appreciated, swelling, is not appreciated, tenderness, is not appreciated, fecal impaction, is not appreciated. Vital Signs: 18:18 BP 94 / 50; Pulse 82; Resp 17 S; Temp 98.3(O); Pulse Ox 99% on R/A; Weight 88.9 kg (R); ca1 Height 5 ft. 5 in. (165.10 cm) (R); Pain 9/10; 19:27 BP 117 / 60; Pulse 72; Resp 18; Pulse Ox 100% on R/A; aa1 21:48 BP 139 / 69; Pulse 69; Resp 16; Temp 98.1; Pulse Ox 100% on R/A; Pain 0/10; aa1 18:18 Body Mass Index 32.62 (88.90 kg, 165.10 cm) ca1 MDM: 18:23 [facility] 18:43 Data reviewed: vital signs, nurses notes, lab test result(s), EKG, radiologic studies, [facility] scan, plain films. 10/10 18:39 Order name: Basic Metabolic Panel; Complete Time: 19:52 [facility] 10/10 18:39 Order name: CBC with Diff; Complete Time: 19:52 [facility] 10/10 18:39 Order name: LFT's; Complete Time: 19:52 [facility] 10/10 18:39 Order name: Magnesium; Complete Time: 19:52 [facility] 10/10 18:39 Order name: NT PRO-BNP; Complete Time: 19:52 [facility] 10/10 18:39 Order name: PT-INR; Complete Time: 19:52 [facility] 10/10 18:39 Order name: Troponin (emerg Dept Use Only); Complete Time: 19:52 [facility] 10/10 18:39 Order name: Lipase; Complete Time: 19:52 [facility] 10/10 18:39 Order name: Type And Screen; Complete Time: 19:52 [facility] 10/10 18:39 Order name: Urine Culture [facility] 10/10 20:31 Order name: Occult Blood [facility] 10/10 20:31 Order name: Stool Culture [facility] 10/10 20:31 Order name: Fecal Leukocyte Stain [facility] 10/10 21:34 Order name: Basic Metabolic Panel [facility] 10/10 18:39 Order name: XRAY Chest (1 view); Complete Time: 19:52 [facility] 10/10 19:36 Order name: Abdomen [facility] 10/10 21:34 Order name: Basic Metabolic Panel [facility] 10/10 21:34 Order name: CBC with Automated Diff [facility] 10/10 21:34 Order name: CBC with Automated Diff EDMS 10/10 21:35 Order name: Magnesium EDMS 10/10 21:35 Order name: Magnesium EDMS 10/10 21:35 Order name: Phosphorus EDMS 10/10 21:35 Order name: Phosphorus EDMS 10/10 21:35 Order name: NT PRO-BNP EDMS 10/10 21:35 Order name: NT PRO-BNP EDMS 10/10 21:35 Order name: Troponin I [facility] 10/10 21:35 Order name: Troponin I [facility] 10/10 21:35 Order name: Troponin I [facility] 10/10 18:39 Order name: EKG; Complete Time: 18:41 [facility] 10/10 18:39 Order name: Cardiac monitoring; Complete Time: 18:40 [facility] 10/10 18:39 Order name: EKG - Nurse/Tech; Complete Time: 18:58 [facility] 10/10 18:39 Order name: IV Saline Lock; Complete Time: 18:58 [facility] 10/10 18:39 Order name: Labs collected and sent; Complete Time: 18:58 [facility] 10/10 18:39 Order name: O2 Per Protocol; Complete Time: 18:40 [facility] 10/10 18:39 Order name: O2 Sat Monitoring; Complete Time: 18:40 [facility] 10/10 21:34 Order name: CONS Physician Consult [facility] 10/10 21:34 Order name: Heart Healthy [facility] 10/10 21:34 Order name: Echo with Doppler [facility] 10/10 21:34 Order name: EKG Electrocardiogram [facility] 10/10 21:34 Order name: EKG Electrocardiogram [facility] Administered Medications: 18:47 Not Given (Duplicate Order): ProTONIX 40 mg IVP once [facility] 18:49 Drug: NS 0.9% 500 ml Route: IV; Rate: bolus; Site: right antecubital; tw2 19:27 Follow up: IV Status: Completed infusion; IV Intake: 500ml aa1 18:49 Drug: ProTONIX 40 mg Route: IVP; Site: right antecubital; tw2 21:13 Follow up: Response: No adverse reaction; No change in condition aa1 18:57 CANCELLED (Duplicate Order): ProTONIX 80 mg IVP once tw2 19:08 Drug: ProTONIX 40 mg Route: IVP; Site: right antecubital; aa1 21:13 Follow up: Response: No adverse reaction; No change in condition aa1 19:27 Drug: NS 0.9% 1000 ml Route: IV; Rate: 125 ml/hr; Site: right antecubital; aa1 21:42 Follow up: IV Status: Infusion continued upon admission aa1 Disposition: 10/10/19 20:02 Hospitalization ordered by Jaciel Rain for Inpatient Admission. Preliminary diagnosis are Unspecified combined systolic (congestive) and diastolic (congestive) heart failure, Unspecified kidney failure, Diarrhea, unspecified, Anemia, unspecified, Gastrointestinal hemorrhage, unspecified - stable. - Bed requested for Telemetry/MedSurg (Inpatient). - Status is Inpatient Admission. aa1 - Condition is Fair. - Problem is new. - Symptoms have improved. UTI on Admission? No Signatures: Dispatcher [employer] [facility] Carli Lyons RN RN dw Oksana Santiago RN RN aa1 Jarrod Bonner MD MD cha Wise, Tara, RN RN tw2 Erin Dolan RN RN ca1 Corrections: (The following items were deleted from the chart) 18:57 18:47 ProTONIX 80 mg IVP once ordered. carey [facility] [email or web address]] 19:35 18:41 Abdomen Pelvis W Con+CT.RAD.BRZ ordered. [facility] 19:36 19:35 CT-ABD ordered. [facility] 21:34 20:02 Hospitalization Ordered by Jaciel Rain MD for Inpatient Admission. Preliminary diagnosis is Unspecified combined systolic (congestive) and diastolic (congestive) heart failure; Unspecified kidney failure; Diarrhea, unspecified; Anemia, unspecified; Gastrointestinal hemorrhage, unspecified - stable. Bed requested for Telemetry/MedSurg (Inpatient). Status is Inpatient Admission. Condition is Fair. Problem is new. Symptoms have improved. UTI on Admission? No. carey 21:35 21:34 10/10/2019 20:02 Hospitalization Ordered by Jaciel Rain MD for Inpatient dw Admission. Preliminary diagnosis is Unspecified combined systolic (congestive) and diastolic (congestive) heart failure; Unspecified kidney failure; Diarrhea, unspecified; Anemia, unspecified; Gastrointestinal hemorrhage, unspecified - stable. Bed requested for Telemetry/MedSurg (Inpatient). Status is Inpatient Admission. Condition is Fair. Problem is new. Symptoms have improved. UTI on Admission? No. dw 22:16 21:35 10/10/2019 20:02 Hospitalization Ordered by Jaciel Rain MD for Inpatient aa1 Admission. Preliminary diagnosis is Unspecified combined systolic (congestive) and diastolic (congestive) heart failure; Unspecified kidney failure; Diarrhea, unspecified; Anemia, unspecified; Gastrointestinal hemorrhage, unspecified - stable. Bed requested for Telemetry/MedSurg (Inpatient). Status is Inpatient Admission. Condition is Fair. Problem is new. Symptoms have improved. UTI on Admission? No. dw
[2019-10-10] MEDS ORDERED: ONDANSETRON 4 MG/2 ML VIAL IV PRN (21:25)
[2019-10-10 22:17] VITALS: BMI 31.6
[2019-10-10] MEDS: ENOXAPARIN 30 MG/0.3 ML SQ SCH (22:56)
[2019-10-11] MEDS ORDERED: TEMAZEPAM 15 MG CAP PO PRN (00:13)
[2019-10-11] MEDS: BENZONATATE 100 MG CAP PO PRN ×3 (00:47→16:36)
[2019-10-11] MEDS ORDERED: FUROSEMIDE 40 MG/4 ML VIAL IV SCH (01:00)
[2019-10-11 01:26] LABS: Urine Appearance CLEAR; Urine Bilirubin NEGATIVE (NEG); Urine Blood NEGATIVE (NEG); Urine Color YELLOW; Urine Glucose NEGATIVE (NEG); Urine Protein NEGATIVE (NEG); Urine Urobilinogen 0.2 mg/dL (0.2-1.0)
[2019-10-11 01:35] LABS: Urine Microscopic Reflex NO UMIC
[2019-10-11 06:15] LABS: Absolute Lymphocytes (CBC) 1.2 K/uL (0.7-4.9); Basophils % 0.6 % (0-1.3); Hematocrit 28.3 % (36.0-45.0); Lymphocytes % 22.9 % (15.3-44.8); RBC Red Blood Cell Count 3.11 M/uL (3.86-4.86)
[2019-10-11 06:42] LABS: BUN Blood Urea Nitrogen 29 mg/dL (7-18); Bicarbonate 21 mmol/L (21-32); Glucose Level 133 mg/dL (74-106); Magnesium 1.8 mg/dL (1.8-2.4); NT PRO-BNP 1258 pg/mL (<450); Phosphorus 2.8 mg/dL (2.5-4.9); Potassium 4.2 mmol/L (3.5-5.1); Sodium Level 148 mmol/L (136-145); Troponin I < 0.02 ng/mL (0.0-0.045)
--- NOTE | 2019-10-11 07:39 | P.HP ---
Certification for Inpatient Patient admitted to: Inpatient With expected LOS: >2 Midnights Patient will require the following post-hospital care: None Practitioner: I am a practitioner with admitting privileges, knowledge of patient current condition, hospital course, and medical plan of care. Services: Services provided to patient in accordance with Admission requirements found in Title 42 Section 412.3 of the Code of Federal Regulations Patient History Date of Service: 10/10/19 Reason for admission: Shortness of breath/New onset CHF History of Present Illness: Patient is a 74-year-old female came to the hospital with difficulty breathing. Patient states she has been having some difficulty for the last 3 months. Patient has PND, orthopnea, and dyspnea on exertion. Patient's BNP was also elevated. Patient most likely has congestive heart failure. Will go ahead and get cardiac workup performed while in the hospital. Will gently diurese patient. Sodium and chloride are elevated. Will monitor these electrolytes closely. Patient will be admitted to the hospital for further workup. Allergies ciprofloxacin [From Cipro] Allergy (Intermediate, Verified 10/10/19 22:18) Itching Home Medications: Aspirin 81 mg PO DAILY 05/09/18 Atorvastatin Calcium [Lipitor] 40 mg PO BEDTIME 05/09/18 Furosemide [Lasix] 40 mg PO DAILY 05/09/18 Gabapentin [Neurontin*] 100 mg PO DAILY 05/09/18 Insulin Glargine Human [Lantus*] 52 units SQ BID 05/09/18 Losartan Potassium 25 mg PO DAILY 05/09/18 Metoprolol Succinate [Toprol Xl*] 50 mg PO DAILY 05/09/18 Biotin 3,000 mcg PO DAILY 10/10/19 Clopidogrel Bisulfate [Plavix*] 75 mg PO DAILY 10/10/19 Isosorbide Mononitrate [Isosorbide Mononitrate ER] 30 mg PO DAILY 10/10/19 Potassium Gluconate [Potassium] 99 mg PO DAILY 10/10/19 Tiotropium [place] [Spiriva] 1 cap IH DAILY 10/10/19 Vitamin E 400 unit PO DAILY 10/10/19 - Past Medical/Surgical History Has patient received pneumonia vaccine in the past: Yes Diabetic: Yes -: Hypertension -: CHF -: IDDM -: neuropathy -: hyperlipidemia -: CAD -: SD -: COPD -: cardiac catheterization -: Coronary artery bypass grafting -: Bilateral knee surgery - Family History Mother Medical History: Diabetes Father Medical History: Diabetes - Social History Smoking Status: Former smoker Alcohol use: No CD- Drugs: No Place of Residence: Home Review of Systems 10-point ROS is otherwise unremarkable Physical Examination - Vital Signs Temperature: 97.6 F Blood Pressure: 106/62 Pulse: 73 Respirations: 18 Pulse Ox (%): 99 - Physical Exam General: Alert, In no apparent distress, Oriented x3 HEENT: Atraumatic, PERRLA, Mucous membr. moist/pink, EOMI, Sclerae nonicteric Neck: Supple, 2+ carotid pulse no bruit, No LAD, Without JVD or thyroid abnormality Respiratory: Diminished, Crackles/rales Cardiovascular: Regular rate/rhythm, Normal S1 S2, Systolic murmur Gastrointestinal: Normal bowel sounds, Soft and benign, Non-distended, No tenderness Musculoskeletal: No clubbing, No swelling, No tenderness Integumentary: No rashes Neurological: Normal gait, Normal speech, Normal strength at 5/5 x4 extr, Normal tone, Sensation intact, Cranial nerves 3-12 intact, Normal affect Lymphatics: No axilla or inguinal lymphadenopathy - Studies Laboratory Data (last 24 hrs) 10/10/19 18:49: PT 12.7 H, INR 1.08 10/10/19 18:49: WBC 4.6, Hgb 10.0 L, Hct 29.2 L, Plt Count 146 L 10/10/19 18:49: Sodium 147 H, Potassium 4.4, BUN 32 H, Creatinine 1.80 H, Glucose 177 H, Magnesium 1.8, Total Bilirubin 0.3, AST 18, ALT 31, Alkaline Phosphatase 108, Lipase 88 Microbiology Data (last 24 hrs): 10/10/19 20:31 Stool Occult Blood - Final Assessment & Plan - Problems (Diagnosis) (1) Congestive heart failure Current Visit: Yes Status: Acute Qualifiers: Heart failure type: diastolic Heart failure chronicity: acute Qualified Code(s): I50.31 - Acute diastolic (congestive) heart failure (2) Chronic obstructive pulmonary disease with (acute) exacerbation Current Visit: No Status: Acute (3) Status post coronary artery bypass graft Current Visit: No Status: Acute (4) Coronary artery disease Current Visit: No Status: Chronic Qualifiers: Coronary Disease-Associated Artery/Lesion type: [place] artery (5) Hypertension Current Visit: No Status: Chronic Qualifiers: - Plan 1. Echocardiogram 2. ARB 3. Start Beta van in AM 4. Cardiology consultation 5. Aggressive diuresis 6. Strict I's and O's 7. Repeat CXR 8. Daily weights 9. Education regarding diet and treatment of congestive heart failure Discharge Plan: Home Plan to discharge in: Greater than 2 days - Advance Directives Does patient have a Living Will: No Does patient have a Durable POA for Healthcare: No - Code Status/Comfort Care Code Status Assessed: Yes Code Status: Full Code Critical Care: No Time Spent Managing PTS Care (In Minutes): 45
[2019-10-11 08:08] LABS: Blood Morphology Comment NOTED (NOT SEEN); Platelet Estimate ADEQ
[2019-10-11 08:09] LABS: Anisocytosis 1+
[2019-10-11] MEDS: POTASSIUM 25 MEQ EFFERV TAB PO SCH (09:00)
[2019-10-11] MEDS ORDERED: lisinopriL 10 MG TAB PO SCH (09:00)
[2019-10-11] MEDS: FUROSEMIDE 20 MG/ 2ML VIAL IV SCH (09:16)
[2019-10-11] MEDS: ASPIRIN 81 MG CHEWABLE TABLET PO SCH (09:16)
[2019-10-11] MEDS: GABAPENTIN 100 MG CAP PO SCH ×3 (09:16→20:53)
--- NOTE | 2019-10-11 11:25 | RAD REPORT ---
EXAM DESCRIPTION: CT Abdomen and Pelvis Without Intravenous Contrast CLINICAL HISTORY: The patient is 74 years old and is Female; ABD PAIN TECHNIQUE: Axial computed tomography images of the abdomen and pelvis without intravenous contrast. Sagittal and coronal reformatted images were created and reviewed. This CT exam was performed usi ng one or more of the following dose reduction techniques: automated exposure control, adjustment o f the mA and/or kV according to patient size, and/or use of iterative reconstruction technique. COMPARISON: No relevant prior studies available. FINDINGS: LUNG BASES: Unremarkable. No mass. No consolidation. ABDOMEN: LIVER: Homogeneous without focal mass. GALLBLADDER AND BILE DUCTS: Surgical clips are present in the right upper quadrant, consistent w ith previous cholecystectomy. PANCREAS: Mild atrophy of the pancreas is present. No ductal dilation. SPLEEN: Unremarkable. ADRENALS: Unremarkable. No mass. KIDNEYS AND URETERS: A right intrarenal calcification is present. There is no hydronephrosis or hydroureter of either kidney. No obstructing renal or ureteral calculus is seen. STOMACH AND BOWEL: The stomach is moderately distended with oral contrast. Oral contrast is pres ent throughout the small bowel which is normal in caliber. Oral contrast and stool is noted throughou t the colon. There is no mucosal thickening or evidence of bowel obstruction. PELVIS: APPENDIX: The appendix is normal in caliber without surrounding inflammation. BLADDER: Unremarkable. No stones. REPRODUCTIVE: Unremarkable as visualized. ABDOMEN and PELVIS: INTRAPERITONEAL SPACE: Unremarkable. No free air. No significant fluid collection. BONES/JOINTS: Mild degenerative change of the spine is present. SOFT TISSUES: The soft tissues are normal. VASCULATURE: Atherosclerosis of the vasculature is present. The vessels are normal in caliber. No abdominal aortic aneurysm. LYMPH NODES: Unremarkable. No enlarged lymph nodes. IMPRESSION: No acute findings on this noncontrasted CT of the abdomen and pelvis to explain the yesica ent's symptoms. Electronically signed by: Zaina Crockett MD 10/10/2019 9:51 PM DRIP MOLDER Due to temporary technical issues with the PACS/Fluency reporting system, reports are being signed by the in house radiologist as a courtesy to ensure prompt reporting. The interpreting radiologist is f ully responsible for the content of the report.
--- NOTE | 2019-10-11 11:38 | CON ---
History Of Present Illness: Mrs. Ibarra is 74. She came to the hospital because of cough and dy spnea. The patient had a mild pulmonary edema pattern on her chest x-ray and has had some diuresis a nd seems to be feeling a little better. She reports that she had bypass surgery in 2014, although ou r x-rays do not comment that there are sternal wires present. I do not doubt the patient she has a s ternal scar. Since the bypass surgery, she has not had any further coronary intervention. She does indeed have sternal wires and mild pulmonary edema pattern. Patient has underlying diabetes, coronar y heart disease. She does not use tobacco. She has chronic diarrhea. It is an undiagnosed diarrhea despite attempts by GI specialist to figure it out. Medications: Her outpatient medications have been losartan, atorvastatin, gabapentin, furosemide, me toprolol, aspirin, insulin, vitamin E, biotin, potassium gluconate, Plavix, tiotropium or Spiriva, an d isosorbide mononitrate. Allergies: SHE REPORTS AN ALLERGY TO CIPRO. Physical Examination: General: She is 5 feet 5 inches, 189 pounds. Alert, oriented, pleasant, not in distress. She is ab le to lay flat without any dyspnea. HEENT: Unremarkable. Neck: Jugular vein pressure seems to be flat or low. Lungs: No crackles or wheeze. Heart: Within normal limits. Diagnostic Studies: Her EKG does not show infarction, injury, or ischemia. Assessment And Plan: Every time the patient took a breath she coughed. I think we should probably s top losartan and stop lisinopril and see if her cough will go away on that. Also, she should be give n some diuretics. We will do an echocardiogram. She is normally followed by Dr. Lisseth Salinas. After diuresis, I think she could be discharged and return back to [facility] for further care. BLOSSOM/SUNNY Voice ID: [id number] Report ID: [id number]
--- NOTE | 2019-10-11 12:07 | EKG ---
Test Date: 2019-10-11 Test Time: 12:11:42 [employer] Psychological Examiner: WALI MEASUREMENT RESULTS: Intervals: Rate: 81 [place]: 186 QRSD: 90 QT: 388 QTc: 450 [place]: P: 47 [place]: 186 QRS: 4 T: 169 INTERPRETIVE STATEMENTS: Normal sinus rhythm T wave abnormality, consider lateral ischemia Abnormal ECG Compared to ECG 05/09/2018 17:55:23 Sinus arrhythmia no longer present Myocardial infarct finding no longer present T-wave abnormality still present Possible ischemia still present Electronically Signed On 10-11-19 12:07:01 DOOR LINER HELPER by Kelby Mesa
--- NOTE | 2019-10-11 13:06 | P.PN ---
Subjective Date of Service: 10/11/19 Chief Complaint: Shortness of breath/New onset CHF Subjective: No new changes, No C/O voiced (She is seen by me today. She is comfortable sitting in room air. No need for additional oxygen. She reports a recent history of ongoing diarrhea.), Tolerating diet, Ambulating, Improving, New changes, C/O voiced, NPO, Working w/ PT, Worsening, Doing well, Demented, Other Physical Examination - Vital Signs Temperature: 98.1 F Blood Pressure: 106/62 Pulse: 73 Respirations: 18 Pulse Ox (%): 98 - Physical Exam General: Alert, In no apparent distress (In no acute distress. Alert and awake.) , Oriented x3, Oriented x2, Oriented x1, Cooperative, Cachectic, Disheveled, Demented, Acute distress, Mild distress, Moderate distress, Severe distress, Confused, Delirious, Unresponsive, Comatose, Obese, Other HEENT: Atraumatic, Normocephalic (Head atraumatic, normocephalic. EOM intact.) , PERRLA, Mucous membr. moist/pink, Other, EOMI, Abnormal EOM, Sclerae nonicteric, Scleral icterus Respiratory: Clear to auscultation bilaterally, Normal air movement (Mild bibasilar crackles. Otherwise good air entry, no wheezing heard.), Diminished, Dull, Crackles/rales, Friction rub, Expiratory wheezes, Inspiratory wheezes, Rhonchi/gurgles, Stridor, Other Cardiovascular: No edema, Normal pulses (Sternotomy scar present. Normal S1- S2. No murmurs heard.), Regular rate/rhythm, Normal S1 S2, Abnormal S3, No gallops, No rubs, No murmurs, Other, Edema, Abnormal pulses, Irregular heart rate/rhythm, Abnormal S1 S2, Abnormal S4, Gallops, Rubs, Systolic murmur, Diastolic murmur Gastrointestinal: Normal bowel sounds (Abdomen soft, nondistended. Mild epigastric tenderness. Bowel sounds are present.), No tenderness Musculoskeletal: No clubbing, No swelling (No edema in all extremities.), No contractures, No erythema, No tenderness, No warmth, Clubbing, Swelling, Contractures, Erythema, Tenderness, Warmth, Cast in place, Crepitus, Kyphosis, Scoliosis, Other Neurological: Normal gait, Normal speech (Grossly intact), Normal strength at 5/ 5 x4 extr, Normal tone, Sensation intact, Cranial nerves 3-12 intact, Normal reflexes 2+, Normal affect, Other, Abnormal gait, Abnormal speech, Abnormal strength, Abnormal tone, Abnormal sensation, Abnormal cranial nerve function, Abnormal reflexes, Abnormal affect, Dementia - Studies Laboratory Data (last 24 hrs) 10/10/19 18:49: PT 12.7 H, INR 1.08 10/10/19 18:49: WBC 4.6, Hgb 10.0 L, Hct 29.2 L, Plt Count 146 L 10/10/19 18:49: Sodium 147 H, Potassium 4.4, BUN 32 H, Creatinine 1.80 H, Glucose 177 H, Magnesium 1.8, Total Bilirubin 0.3, AST 18, ALT 31, Alkaline Phosphatase 108, Lipase 88 Microbiology Data (last 24 hrs): 10/10/19 20:31 Stool Fecal Leukocyte Stain - Final 10/10/19 20:31 Stool Occult Blood - Final Assessment & Plan Physician Review Additional Text: Impression Patient is a 74-year-old female with unknown past medical history of coronary disease status post CABG who presented to the ER complaining of ongoing diarrhea and shortness of breath for the past 3 months. Received a L of normal saline in the ER. Seen by me this morning, not dyspneic and in no acute distress. She appears euvolemic my physical exam Pulmonary Congestive heart failure Coronary disease status post CABG Hypertension CHF COPD Acute renal failure Plan: 1. Monitor volume status 2. Follow-up 2D echo 3. Consult Cardiology due to concern of new onset CHF 4. Monitor renal function, consider additional hydration since patient on risk for prerenal azotemia and dehydration
[2019-10-11 14:27] LABS: C.diff Antigen/Toxin Ag neg : Tox neg (NEG : NEG)
--- NOTE | 2019-10-11 15:07 | ECHO ---
HEIGHT: 5 ft 5 in WEIGHT: 189 lb 14.4 oz DATE OF STUDY: 10/11/[address]: Jaciel Rain MD 2-DIMENSIONAL: YES M.MODE: YES DOPPLER: YES COLOR FLOW: YES TDS: PORTABLE: DEFINITY: BUBBLE STUDY: DIAGNOSIS: CONGESTIVE HEART FAILURE CARDIAC HISTORY: CATHERIZATION: YES SURGERY: YES PROSTHETIC VALVE: NO PACEMAKER: NO MEASUREMENTS (cm) DIASTOLIC (NORMALS) SYSTOLIC (NORMALS) IVSd 1.0 (0.6-1.2) LA Diam 3.8 (1.9-4.0) LVEF 60-69% LVIDd 3.7 (3.5-5.7) LVIDs 2.6 (2.0-3.5) %FS 29% LVPWd 0.9 (0.6-1.2) Ao Diam 2.6 (2.0-3.7) 2 DIMENSIONAL ASSESSMENT: RIGHT ATRIUM: NORMAL LEFT ATRIUM: NORMAL RIGHT VENTRICLE: NORMAL LEFT VENTRICLE: NORMAL TRICUSPID VALVE: NORMAL MITRAL VALVE: MITRAL ANNULAR CALCIFICATION PULMONIC VALVE: NORMAL AORTIC VALVE: NORMAL PERICARDIAL EFFUSION: NONE AORTIC ROOT: NORMAL LEFT VENTRICULAR WALL MOTION: NORMAL DOPPLER/COLOR FLOW: TRACE MITRAL REGURGITATION COMMENTS: NORMAL LEFT VENTRICULAR EJECTION FRACTION. MITRAL ANNULAR CALCIFICATION. TRACE MITRAL ANNULAR CALCIFICATION3. TECHNOLOGIST: PARISH MONDRAGON
[2019-10-11] MEDS: INSULIN GLARGINE 100 UNITS/ML SQ SCH (16:36)
[2019-10-11] MEDS: ATORVASTATIN 40 MG TAB PO SCH (20:53)
[2019-10-11] MEDS: ACETAMINOPHEN 500 MG TAB PO PRN (20:53)
[2019-10-11] MEDS: ENOXAPARIN 30 MG/0.3 ML SQ SCH (21:45)
[2019-10-12] MEDS: METOPROLOL TAR 50 MG TAB PO SCH ×3 (05:31→22:05)
[2019-10-12 08:11] LABS: Absolute Lymphocytes (CBC) 1.2 K/uL (0.7-4.9); Basophils % 0.6 % (0-1.3); Hematocrit 28.4 % (36.0-45.0); Lymphocytes % 17.4 % (15.3-44.8); RBC Red Blood Cell Count 3.09 M/uL (3.86-4.86)
[2019-10-12 08:23] LABS: Potassium 3.6 mmol/L (3.5-5.1)
[2019-10-12 08:49] LABS: Blood Morphology Comment NOT SEEN (NOT SEEN); Platelet Estimate ADEQ; Platelets, Giant FEW
[2019-10-12] MEDS: FUROSEMIDE 20 MG/ 2ML VIAL IV SCH (09:02)
[2019-10-12] MEDS: POTASSIUM 25 MEQ EFFERV TAB PO SCH (09:02)
[2019-10-12] MEDS: GABAPENTIN 100 MG CAP PO SCH ×3 (09:03→22:05)
[2019-10-12] MEDS: ASPIRIN 81 MG CHEWABLE TABLET PO SCH (09:03)
--- NOTE | 2019-10-12 14:43 | P.PN ---
Subjective Date of Service: 10/12/19 Chief Complaint: Shortness of breath/New onset CHF Patient is reporting some headache sore throat and a mild cough. Physical Examination - Vital Signs Temperature: 98.4 F Blood Pressure: 116/58 Pulse: 78 Respirations: 18 Pulse Ox (%): 95 - Physical Exam General: Alert, In no apparent distress, Cooperative HEENT: Atraumatic, Normocephalic, EOMI Respiratory: Clear to auscultation bilaterally, Normal air movement (No crackles or wheezing heard) Cardiovascular: No edema, Regular rate/rhythm, Normal S1 S2 Gastrointestinal: Normal bowel sounds, Soft and benign, Non-distended Musculoskeletal: No swelling, No tenderness Integumentary: Warmth Neurological: Normal gait, Normal speech, Normal strength at 5/5 x4 extr, Normal affect - Studies Microbiology Data (last 24 hrs): 10/10/19 20:31 Stool Fecal Leukocyte Stain - Final Assessment & Plan Physician Review Additional Text: Impression Patient is a 74-year-old female with unknown past medical history of coronary disease status post CABG who presented to the ER complaining of ongoing diarrhea and shortness of breath for the past 3 months. Her C diff culture was negative during this admission. She received a L of normal saline in the ER. Her chest x-ray revealed evidence of mild pulmonary edema. She is currently receiving a low-dose IV diuresis and has improved clinically. Her 2D echo showed evidence of mild mitral calcification. Otherwise, she had a preserved LVEF of 60% and no wall motion abnormalities. During encounter, patient complained of sore throat and cough. No evidence of consolidation on chest x-ray. Pharyngitis less likely in the setting of normal white count and no fever. Pulmonary Edema Congestive heart failure Coronary disease status post CABG Hypertension CHF COPD Acute renal failure on CKD stage 3 Plan: 1. Dc Storm-i and Arb as per Cardiology recommendation and monitor improvement of cough 2. Continue low-dose diuresis and trend BNP 3. Monitor renal function 4. Repeat pro calcitonin 5. Will most likely discharge tomorrow if cleared by Physical therapy and Occupational therapy
--- NOTE | 2019-10-12 16:01 | PN ---
Date of Progress Note: 10/12/2019 Patient was admitted with acute congestive heart failure and mild congestive heart failure. She is a patient of Dr. Salinas, had bypass surgery in 2014. Her echocardiogram yesterday showed normal ejec tion fraction. No wall motion abnormalities. No valvular issues. She has improved from a breathing standpoint. She does take Lasix at home and she can certainly go home and increase her dose on as n eeded basis. Some of her symptoms now including some cough may be related to bronchitis, but I am co mfortable with her going home and following up with Dr. Salinas in the near future. JODIE/SUNNY Voice ID: [id number] Report ID: [id number]
--- NOTE | 2019-10-12 16:06 | RAD REPORT ---
EXAM DESCRIPTION: RAD - Hip Left 2 View - 10/12/2019 3:48 pm CLINICAL HISTORY: Fall Fall, left hip pain COMPARISON: No comparisons FINDINGS: No fracture, dislocation or AVN. Vascular stent is present medially.
[2019-10-12] MEDS: ACETAMINOPHEN 500 MG TAB PO PRN (16:25)
[2019-10-12] MEDS: BENZONATATE 100 MG CAP PO PRN (16:25)
[2019-10-12] MEDS: INSULIN GLARGINE 100 UNITS/ML SQ SCH (16:26)
--- NOTE | 2019-10-12 16:43 | EKG ---
Test Date: 2018-10-10 Test Time: 18:50:18 Box Order Person: LISSETH MEASUREMENT RESULTS: Intervals: Rate: 76 MN: 182 QRSD: 96 QT: 406 QTc: 456 [place]: P: 37 MN: 182 QRS: -7 T: 172 INTERPRETIVE STATEMENTS: Sinus rhythm with premature atrial complexes Anteroseptal infarct, age undetermined T wave abnormality, consider lateral ischemia Abnormal ECG Cardioserver Error - Incorrect date on EKG This EKG was performed on 10-10-2019 Compared to ECG 05/09/2018 17:55:23 Atrial premature complex(es) now present Sinus arrhythmia no longer present Myocardial infarct finding still present T-wave abnormality still present Possible ischemia still present Electronically Signed On 10-12-19 16:41:07 CONSUMER LENDING MANAGER by Robson Ramos
[2019-10-12] MEDS ORDERED: HOME MED [TIOTROPIUM 5 SPRAYS/INHALER] IH SCH (17:45)
[2019-10-12] MEDS: ENOXAPARIN 30 MG/0.3 ML SQ SCH (22:05)
[2019-10-12] MEDS: ATORVASTATIN 40 MG TAB PO SCH (22:05)
[2019-10-13] MEDS: BIOTIN 3000 MCG PO SCH (09:00)
[2019-10-13] MEDS ORDERED: HOME MED 1 EA UNK (Losartan Potassium [Losartan Potassium] 25 MG) PO SCH (09:00)
[2019-10-13] MEDS: GABAPENTIN 100 MG CAP PO SCH ×3 (09:00→21:21)
[2019-10-13] MEDS: METOPROLOL XL 50 MG TAB PO SCH ×2 (09:00→10:14)
[2019-10-13 09:49] LABS: Absolute Lymphocytes (CBC) 1.5 K/uL (0.7-4.9); Basophils % 0.4 % (0-1.3); Hematocrit 27.6 % (36.0-45.0); Lymphocytes % 17.8 % (15.3-44.8); MPV 9.2 fL (7.6-11.3); RBC Red Blood Cell Count 3.03 M/uL (3.86-4.86)
[2019-10-13] MEDS: POTASSIUM 25 MEQ EFFERV TAB PO SCH (10:09)
[2019-10-13] MEDS: CLOPIDOGREL 75 MG TABLET PO SCH (10:10)
[2019-10-13] MEDS: ISOSORBIDE MONO SR 30 MG TAB PO SCH (10:10)
[2019-10-13] MEDS: FUROSEMIDE 40 MG TABLET PO SCH (10:13)
[2019-10-13] MEDS: ASPIRIN 81 MG CHEWABLE TABLET PO SCH (10:13)
[2019-10-13] MEDS: LOSARTAN POTASSIUM 50 MG TABLET PO SCH (10:13)
[2019-10-13] MEDS: METOPROLOL TAR 50 MG TAB PO SCH ×2 (10:14→21:21)
[2019-10-13] MEDS ORDERED: LORazepam 2 MG/ML VIAL IV ONE ×2 (10:25→10:45)
--- NOTE | 2019-10-13 12:00 | P.PN ---
Subjective Date of Service: 10/13/19 Chief Complaint: Shortness of breath/New onset CHF Patient had a fall incident yesterday afternoon. Hip x-ray w/o acute signs of trauma. She refused head CT due to extreme claustrophobia. Reports worsenign hemoptysis this morning. Afebrile, not dyspenic. Refused CT chest. I spent 10 minutes explainign the need for the study, delay of care. CT chest and ativan IV ordered. Physical Examination - Vital Signs Temperature: 97.5 F Blood Pressure: 116/55 Pulse: 82 Respirations: 20 Pulse Ox (%): 92 - Physical Exam General: Alert, In no apparent distress, Cooperative HEENT: Atraumatic, Normocephalic, EOMI Neck: Supple Respiratory: Clear to auscultation bilaterally, Normal air movement Cardiovascular: No edema, Normal pulses, Regular rate/rhythm Gastrointestinal: Normal bowel sounds, Soft and benign, Non-distended Musculoskeletal: No swelling, No erythema, No tenderness Integumentary: Warmth Neurological: Normal speech, Normal affect Assessment & Plan Physician Review Additional Text: Impression Patient is a 74-year-old female with unknown past medical history of coronary disease status post CABG who presented to the ER complaining of ongoing diarrhea and shortness of breath for the past 3 months. Her C diff culture was negative during this admission. She received a L of normal saline in the ER. Her chest x-ray revealed evidence of mild pulmonary edema. She is currently receiving a low-dose IV diuresis and has improved clinically. Her 2D echo showed evidence of mild mitral calcification. Otherwise, she has a preserved LVEF of 60% and no wall motion abnormalities. Patient is currently having hemoptysis. Not in respiratory distress. Infectious etiology unlikely given normal WBC, < 0.5 procalciton. Pulmonary renal syndrome also unlikely with no signs of parenchymal renal disease, focal consolidations on CXR. CURRENT ddx include pulmonary edema vs VTE. Pulmonary Edema Congestive heart failure Coronary disease status post CABG Hypertension CHF COPD Acute renal failure on CKD stage 3 Plan: 1. CT chest to assess for hemoptysis. PRN ativan for claustrophobia 2. Continue low-dose diuresis and trend BNP 3. Check D-dimers 4. Monitor renal function Time Spent Managing Pts Care (In Minutes): 35
--- NOTE | 2019-10-13 13:08 | RAD REPORT ---
EXAM DESCRIPTION: CT - Thorax Wo Con CLINICAL HISTORY: Chest pain hemoptysis COMPARISON: THORAX W CONTRAST dated 05/08/2012; Hip Left 2 View dated 10/12/2019; Abdomen Pelvis Wo Co ntrast dated 10/10/2019; Chest Single View dated 10/10/2019; Chest Single View dated 05/09/2018 FINDINGS: Again noted is a large bulla in the right apex. Mild tree-in-bud opacities are present in the left lung base, medial right lung base, posterior right upper lobe and lingula likely representin g atypical infection. No pleural thickening or pleural effusion. No pneumothorax. No axillary, mediastinal or hilar adenopathy. No concerning bony finding. Cholecystectomy clips. All CT scans are performed using dose optimization technique as appropriate and may include automated exposure control or mA/KV adjustment according to patient size. IMPRESSION: Multiple areas of mild tree-in-bud opacities as detailed likely represent endobronchial spread of infection.
[2019-10-13] MEDS: BENZONATATE 100 MG CAP PO PRN (14:16)
[2019-10-13] MEDS ORDERED: GLUCAGON 1 MG/VIAL IM PRN (16:42)
[2019-10-13] MEDS ORDERED: D50W 25 GM/50 ML SYRINGE/VIAL IV PRN (16:42)
[2019-10-13] MEDS: INSULIN LISPRO 100 UNIT/1 ML SQ SCH ×2 (17:00→21:22)
[2019-10-13] MEDS: INSULIN GLARGINE 100 UNITS/ML SQ SCH (17:01)
[2019-10-13] MEDS: ATORVASTATIN 40 MG TAB PO SCH (21:21)
[2019-10-13] MEDS: DOXYCYCLINE 100 MG in NA CHLORIDE 0.9% 100 ML IVPB SCH (21:21)
[2019-10-13] MEDS: ENOXAPARIN 30 MG/0.3 ML SQ SCH (21:22)
[2019-10-14 06:20] LABS: Magnesium 1.5 mg/dL (1.8-2.4); Potassium 4.1 mmol/L (3.5-5.1)
[2019-10-14] MEDS: INSULIN LISPRO 100 UNIT/1 ML SQ SCH ×4 (07:30→21:06)
[2019-10-14] MEDS ORDERED: Magnesium Sulfate 2gm IVPB 2 G/50 ML BAG IV ONE (07:30)
[2019-10-14] MEDS: BIOTIN 3000 MCG PO SCH (09:00)
[2019-10-14] MEDS: CLOPIDOGREL 75 MG TABLET PO SCH (09:28)
[2019-10-14] MEDS: LOSARTAN POTASSIUM 50 MG TABLET PO SCH (09:28)
[2019-10-14] MEDS: ISOSORBIDE MONO SR 30 MG TAB PO SCH (09:29)
[2019-10-14] MEDS: GABAPENTIN 100 MG CAP PO SCH ×3 (09:29→21:00)
[2019-10-14] MEDS: ASPIRIN 81 MG CHEWABLE TABLET PO SCH (09:29)
[2019-10-14] MEDS: POTASSIUM 25 MEQ EFFERV TAB PO SCH (09:30)
[2019-10-14] MEDS: METOPROLOL TAR 50 MG TAB PO SCH ×2 (09:31→21:05)
[2019-10-14] MEDS: FUROSEMIDE 40 MG TABLET PO SCH (09:32)
[2019-10-14] MEDS: DOXYCYCLINE 100 MG in NA CHLORIDE 0.9% 100 ML IVPB SCH ×2 (09:33→21:02)
--- NOTE | 2019-10-14 11:57 | RAD REPORT ---
EXAM DESCRIPTION: RAD - Chest Single View - 10/14/2019 11:50 am CLINICAL HISTORY: COPD, shortness of breath COMPARISON: October 10 TECHNIQUE: AP portable chest image was obtained 1137 hours . FINDINGS: Fibrotic stranding in each lung base noted. No dense mass or consolidation. No failure or volume overload. Emphysematous changes are present at the right apex. Sternotomy wires are in place. Heart and vasculature are normal. No measurable pleural effusion and no pneumothorax. No acute bony a bnormality seen. No acute aortic findings suspected. IMPRESSION: Chronic lung parenchymal changes similar to comparison. No acute findings seen.
[2019-10-14] MEDS: NA CHLORIDE 0.9% 1,000 ML IV SCH (14:22)
--- NOTE | 2019-10-14 14:51 | RAD REPORT ---
EXAM DESCRIPTION: US - Renal Ultrasound-Complete - 10/14/2019 2:31 pm CLINICAL HISTORY: Acute kidney injury COMPARISON: CT study October 10 FINDINGS: The right kidney measures 9.9 x 3.8 x 4.1 cm. The left kidney measures 10.4 x 3.8 x 4.0 c m. Renal cortical thickness and echogenicity are normal. No hydronephrosis or suspicious renal mass. Urinary bladder is mostly contracted. No gross abnormality seen. IMPRESSION: No hydronephrosis or suspicious renal mass. No gross abnormality of the partially filled urinary bladder.
--- NOTE | 2019-10-14 16:26 | P.PN ---
Subjective Date of Service: 10/14/19 Chief Complaint: Shortness of breath/New onset CHF No acute events overnight. Patient is feeling well events suggesting going on. I recommended staying until she sees a lens block gauger today due to abnormal renal function Physical Examination - Vital Signs Temperature: 98.2 F Blood Pressure: 86/57 Pulse: 80 Respirations: 17 Pulse Ox (%): 96 - Physical Exam General: Oriented x3, Oriented x2, Oriented x1, Cooperative, Other (Slightly deconditioned and lethargic) HEENT: Atraumatic, Normocephalic, EOMI Neck: Supple Respiratory: Clear to auscultation bilaterally, Normal air movement Cardiovascular: Normal pulses, Regular rate/rhythm, Normal S1 S2 Gastrointestinal: Normal bowel sounds, Soft and benign, Non-distended Musculoskeletal: No swelling, No contractures, No erythema Integumentary: Warmth Neurological: Normal speech, Normal affect - Studies Microbiology Data (last 24 hrs): 10/10/19 20:31 Stool Culture & Sensitivity - Final Assessment & Plan Physician Review Additional Text: Impression Patient is a 74-year-old female with unknown past medical history of coronary disease status post CABG who presented to the ER complaining of ongoing diarrhea and shortness of breath for the past 3 months. Her C diff culture was negative during this admission. She received a L of normal saline in the ER. Her chest x-ray revealed evidence of mild pulmonary edema. She is currently receiving a low-dose IV diuresis and has improved clinically. Her 2D echo showed evidence of mild mitral calcification. Otherwise, she has a preserved LVEF of 60% and no wall motion abnormalities. A CT abdomen and pelvis order for hemoptysis ruled out any focal lesions but had some nonspecific evidence of tree-in-bud pattern concerning for infection. Pulmonary Edema Congestive heart failure Coronary disease status post CABG Hypertension CHF COPD Acute renal failure on CKD stage 3 Plan: 1. Start Unasyn 2. Continue low-dose diuresis and trend BNP 3. Nephrology consulted for acute on chronic CKD 4. Continue physical therapy while in house 5. Continue insulin sliding scale and Lantus for diabetes 6. Anticipating discharge tomorrow if cleared by Nephrology
[2019-10-14] MEDS: INSULIN GLARGINE 100 UNITS/ML SQ SCH (17:15)
[2019-10-14] MEDS: BENZONATATE 100 MG CAP PO PRN (17:19)
[2019-10-14] MEDS: AMOX/K CLAV 500 MG TAB PO SCH (21:04)
[2019-10-14] MEDS: ATORVASTATIN 40 MG TAB PO SCH (21:05)
[2019-10-14] MEDS: ENOXAPARIN 30 MG/0.3 ML SQ SCH (21:06)
--- NOTE | 2019-10-15 01:37 | CON ---
Date of Consultation: 10/14/2019 Reason For Consultation: Elevated BUN and creatinine. History Of Present Illness: This is a pleasant 74-year-old female, well known to have diabetes compl icated with neuropathy, no retinopathy, hypertension, hyperlipidemia, coronary artery disease status post CABG, status post PTCA, hyperlipidemia. Patient was in her regular state of health. Patient mane sav a chronic diarrhea, came to the hospital because of worsening diarrhea and chest pain, found to hav e elevation in BUN and creatinine. For that reason, we have been consulted. Patient denied taking a ny nonsteroidal. No recent IV contrast exposure. No change in her medication. Patient upon arrival has low blood pressure down to the 90, been on hydration and patient also been on losartan. Past Medical History: 1.Diabetes. 2.Hypertension. 3.Hyperlipidemia. 4.Coronary artery disease, status post CABG. Past Surgical History: 1.Knee surgery. 2.Cardiac cath. 3.CABG. Family History: Positive for diabetes and hypertension. Social History: Ex-smoker. Denied alcohol. Denied drugs abuse. Physical Examination: General: When I saw the patient, the patient was lying in bed, comfortable, on nasal cannula. Vital Signs: Blood pressure 85/57, pulse of 80. Chest: Clear to auscultation. Heart: S1, S2 regular. Abdomen: Soft, nontender. Extremities: No edema. Neurological: Alert, oriented x3. Nonfocal. Lab Data: Hemoglobin and hematocrit 9.5/27.6. No eosinophil. Sodium 141, potassium 4.1, bicarb 23, BUN 32, creatinine 1.7, calcium 7.3, phosphorus 3.6. BNP of . Assessment And Plan: 1.Acute kidney injury on advanced chronic kidney disease. The data currently does not support use o f any further blood pressure medication. 2.Acute kidney injury, mostly secondary to prerenal, poor perfusion, and acute tubular necrosis seco ndary to low blood pressure, superimposed with gastrointestinal loss. I am going to go ahead and dis continue diuresis, discontinue losartan. Start patient on gentle hydration of normal 750 per hour. We will send chest x-ray to evaluate the fluid status and we will monitor the patient. 3.Hypomagnesemia. We will supplement. 4.Diabetes, as by primary. 5.Chronic diarrhea, as by primary. 6.Hypertension with the presence of acute kidney injury and low blood pressure. Discontinue losarta n. Discontinue diuretic. MA/MODL Voice ID: [id number] Report ID: [id number]
[2019-10-15 06:02] LABS: Urine Protein/Creatinine Ratio 0.12 ratio (<0.15)
[2019-10-15 06:35] LABS: RBC Red Blood Cell Count 2.58 M/uL (3.86-4.86)
[2019-10-15] MEDS: INSULIN LISPRO 100 UNIT/1 ML SQ SCH ×2 (07:30→11:30)
[2019-10-15] MEDS: NA CHLORIDE 0.9% 1,000 ML IV SCH ×2 (08:00→09:40)
[2019-10-15 08:32] LABS: Absolute Lymphocytes (CBC) 0.7 K/uL (0.7-4.9); Basophils % 0.6 % (0-1.3); Hematocrit 23.8 % (36.0-45.0); Lymphocytes % 15.3 % (15.3-44.8); MPV 9.8 fL (7.6-11.3); RBC Red Blood Cell Count 2.63 M/uL (3.86-4.86)
[2019-10-15 08:53] LABS: Albumin 2.4 g/dL (3.4-5.0); BUN Blood Urea Nitrogen 36 mg/dL (7-18); Bicarbonate 24 mmol/L (21-32); Ferritin 239.5 ng/mL (8-388); Folic Acid, (Folate) > 20.0 ng/mL (3.1-17.5); Glucose Level 149 mg/dL (74-106); Magnesium 1.9 mg/dL (1.8-2.4); Phosphorus 2.4 mg/dL (2.5-4.9); Potassium 4.3 mmol/L (3.5-5.1); Sodium Level 139 mmol/L (136-145); Transferrin 169 mg/dL (200-360)
[2019-10-15] MEDS: GABAPENTIN 100 MG CAP PO SCH ×2 (09:00→13:41)
[2019-10-15] MEDS: BIOTIN 3000 MCG PO SCH (09:00)
[2019-10-15] MEDS: DOXYCYCLINE 100 MG in NA CHLORIDE 0.9% 100 ML IVPB SCH (09:38)
[2019-10-15] MEDS: CLOPIDOGREL 75 MG TABLET PO SCH (09:38)
[2019-10-15] MEDS: POTASSIUM 25 MEQ EFFERV TAB PO SCH (09:38)
[2019-10-15] MEDS: AMOX/K CLAV 500 MG TAB PO SCH (09:38)
[2019-10-15] MEDS: FUROSEMIDE 40 MG TABLET PO SCH (09:38)
[2019-10-15] MEDS: METOPROLOL TAR 50 MG TAB PO SCH (09:39)
[2019-10-15] MEDS: ASPIRIN 81 MG CHEWABLE TABLET PO SCH (09:39)
[2019-10-15 11:03] VITALS: O2SAT 93
[2019-10-15] MEDS ORDERED: FUROSEMIDE 20 MG/ 2ML VIAL IV ONE (12:30)
[2019-10-15 12:35] VITALS: BP 116/56; TEMP 98.9
--- NOTE | 2019-10-15 12:43 | P.DS ---
Admission Date: 10/10/19 Discharge Date: 10/15/19 Discharge Condition: FAIR Reason for Admission: Shortness of breath/New onset CHF Brief History of Present Illness: PATIENT IS A 74-YEAR-OLD FEMALE WITH UNKNOWN PAST MEDICAL HISTORY OF HYPERTENSION, INSULIN-DEPENDENT DIABETES MELLITUS, SYSTOLIC CHF. SHE PRESENTED TO THE HOSPITAL WITH SHORTNESS OF BREATH AND DIARRHEA. Hospital Course: Patient was initially admitted with a working diagnosis of acute CHF exacerbation given her evidence of pulmonary congestion on chest x-ray. She was placed on diuresis. Her shortness of breath resolved. However, her renal function started deteriorating. Nephrology was consulted and recommended a trial of IV fluid challenge but patient declined as she wanted to leave. Her hospital course was marked by episodes of hemoptysis and sore throat. A noncontrast CT scan revealed multi focal pneumonia about no evidence of mass to explain her hemoptysis. Her Hb also dropped 2pt, now at 8.1. She refused to stay for additional treatments such as transfusion and IVF. She is leaving against medical advice. Vital Signs/Physical Exam: Temp Pulse Resp BP Pulse Ox 98.9 F 72 16 116/56 L 92 10/15/19 12:00 10/15/19 12:00 10/15/19 12:00 10/15/19 12:00 10/15/19 12:00 General: Other (slighlty deconditioned, cooperative) HEENT: Atraumatic, Normocephalic, EOMI Neck: Supple Respiratory: Clear to auscultation bilaterally, Normal air movement Cardiovascular: Normal pulses, Regular rate/rhythm, Normal S1 S2 Gastrointestinal: Normal bowel sounds, Soft and benign, Non-distended Musculoskeletal: No swelling, No contractures, No erythema Integumentary: Warmth Neurological: Normal speech, Other (flat affect) Laboratory Data at Discharge: WBC 4.6 K/uL (4.3-10.9) D 10/15/19 05:32 Hgb 8.1 g/dL (12.0-15.0) L 10/15/19 05:32 Hct 23.8 % (36.0-45.0) L 10/15/19 05:32 Plt Count 141 K/uL (152-406) L 10/15/19 05:32 PT 12.7 SECONDS (9.5-12.5) H 10/10/19 18:49 INR 1.08 10/10/19 18:49 Sodium 139 mmol/L (136-145) 10/15/19 05:32 Potassium 4.3 mmol/L (3.5-5.1) 10/15/19 05:32 BUN 36 mg/dL (7-18) H 10/15/19 05:32 Creatinine 1.50 mg/dL (0.55-1.3) H 10/15/19 05:32 Glucose 149 mg/dL (74-106) H 10/15/19 05:32 Uric Acid 11.0 mg/dL (2.6-6.0) H 10/15/19 05:32 Phosphorus 2.4 mg/dL (2.5-4.9) L 10/15/19 05:32 Magnesium 1.9 mg/dL (1.8-2.4) 10/15/19 05:32 Total Bilirubin 0.3 mg/dL (0.2-1.0) 10/10/19 18:49 AST 18 U/L (15-37) 10/10/19 18:49 ALT 31 U/L (12-78) 10/10/19 18:49 Alkaline Phosphatase 108 U/L (45-117) 10/10/19 18:49 Troponin I < 0.02 ng/mL (0.0-0.045) 10/11/19 05:13 Lipase 88 U/L (73-393) 10/10/19 18:49 Home Medications: Aspirin 81 mg PO DAILY 05/09/18 Atorvastatin Calcium [Lipitor] 40 mg PO BEDTIME 05/09/18 Furosemide [Lasix] 40 mg PO DAILY 05/09/18 Gabapentin [Neurontin*] 100 mg PO DAILY 05/09/18 Insulin Glargine Human [Lantus*] 52 units SQ BID 05/09/18 Metoprolol Succinate [Toprol Xl*] 50 mg PO DAILY 05/09/18 Biotin 3,000 mcg PO DAILY 10/10/19 Clopidogrel Bisulfate [Plavix*] 75 mg PO DAILY 10/10/19 Isosorbide Mononitrate [Isosorbide Mononitrate ER] 30 mg PO DAILY 10/10/19 Potassium Gluconate [Potassium] 99 mg PO DAILY 10/10/19 Tiotropium [place] [Spiriva] 1 cap IH DAILY 10/10/19 Vitamin E 400 unit PO DAILY 10/10/19 Amox/Clavulanate [Augmentin 500-125 mg Tab*] 500 mg PO BID #10 tab 10/15/19 Temazepam [Restoril*] 15 mg PO BEDTIME PRN PRN cap 10/15/19 New Medications: Amox/Clavulanate [Augmentin 500-125 mg Tab*] 500 mg PO BID #10 tab Patient Discharge Instructions: Please follow up with Nephrology, Dr. Chun.
--- NOTE | 2019-10-15 12:55 | P.PN ---
Subjective Date of Service: 10/15/19 Chief Complaint: Shortness of breath/New onset CHF Subjective: New changes Pt with HX of CHF, admitted for diarrhea ,Cr was on 1.8, improved initially then trending up today Pt refusing IVF , Her H/h dropped pt insisting on going home I had long discussion with the pt about her clinical condition and the need to close monitoring her RFT , pt wants to repeat labs next week when she will vivist her residential program director PCP pt can be discharged from nehrology point of view and f/u with nephrology clinic in 1-2 wks Past Medical History: 1. Diabetes. 2. Hypertension. 3. Hyperlipidemia. 4. Coronary artery disease, status post CABG. Past Surgical History: 1. Knee surgery. 2. Cardiac cath. 3. CABG. Family History: Positive for diabetes and hypertension. Social History: Ex-smoker. Denied alcohol. Denied drugs abuse. Physical Examination: General: AAAOX3, NAD Neck: Supple, no elevated JVD Chest: mild Rt basal rales Heart: RRR, normal S1, S2 no murmur or rub Abdomen: Soft, nontender. Extremities: No edema. Assessment And Plan: JOSIAS on CKD III baseline Cr 1.3 initially due to dehydration , now pt have rakles on exam will dc IVF and lasix pt insisting on going home I had long discussion with the pt about her clinical condition and the need to close monitoring her RFT , pt wants to repeat labs next week when she will vivist her residential program director PCP pt can be discharged from nehrology point of view and f/u with nephrology clinic in 1-2 wks US : no hydro , UA no active sediments cont to hold ALTA DM as per PCP PNA cont Abx Acute on chronic anemia LE + possibly dilution no active bleeding need to rpt labs next week Diarrhea resolved Physical Examination - Vital Signs Temperature: 98.9 F Blood Pressure: 116/56 Pulse: 72 Respirations: 16 Pulse Ox (%): 92 - Studies Microbiology Data (last 24 hrs): 10/10/19 20:31 Stool Culture & Sensitivity - Final Assessment And Plan Physician Review Additional Text: Impression Patient is a 74-year-old female with unknown past medical history of coronary disease status post CABG who presented to the ER complaining of ongoing diarrhea and shortness of breath for the past 3 months. Her C diff culture was negative during this admission. She received a L of normal saline in the ER. Her chest x-ray revealed evidence of mild pulmonary edema. She is currently receiving a low-dose IV diuresis and has improved clinically. Her 2D echo showed evidence of mild mitral calcification. Otherwise, she has a preserved LVEF of 60% and no wall motion abnormalities. A CT abdomen and pelvis order for hemoptysis ruled out any focal lesions but had some nonspecific evidence of tree-in-bud pattern concerning for infection. Pulmonary Edema Congestive heart failure Coronary disease status post CABG Hypertension CHF COPD Acute renal failure on CKD stage 3 Plan: 1. Start Unasyn 2. Continue low-dose diuresis and trend BNP 3. Nephrology consulted for acute on chronic CKD 4. Continue physical therapy while in house 5. Continue insulin sliding scale and Lantus for diabetes 6. Anticipating discharge tomorrow if cleared by Nephrology
[2019-10-15] MEDS: BENZONATATE 100 MG CAP PO PRN (12:58)
[2019-10-15] MEDS ORDERED: METOPROLOL TAR 25 MG TAB PO SCH (21:00)
[2019-10-16 01:53] LABS: Rheumatoid Factor NEG (NEG)
[2019-10-20 03:43] LABS: HBsAG Nonreactive (Nonreactive)
[2019-10-21 03:28] LABS: Hepatitis C Virus RNA (PCR)log <1.18 log IU/mL
== END 2019-10-15 13:40 | disposition left against medical advice (07) | DRG 291 ==
LOC: ER 17:54 → ERHOLD 21:33 → 2ND 21:50
PROVIDERS: ADMIT Hospitalist; ATTEND Internal Medicine
DX: I13.0 Hypertensive heart and chronic kidney disease with heart failure and stage 1 through stage 4 chronic kidney disease, or unspecified chronic kidney disease (principal); I50.31 Acute diastolic (congestive) heart failure; J18.9 Pneumonia, unspecified organism; N17.0 Acute kidney failure with tubular necrosis; J44.1 Chronic obstructive pulmonary disease with (acute) exacerbation; R04.2 Hemoptysis; I25.10 Atherosclerotic heart disease of native coronary artery without angina pectoris; N18.3 Chronic kidney disease, stage 3 (moderate); R06.01 Orthopnea; E11.9 Type 2 diabetes mellitus without complications; E78.5 Hyperlipidemia, unspecified; E83.42 Hypomagnesemia; Z95.5 Presence of coronary angioplasty implant and graft; Z79.4 Long term (current) use of insulin
CPT/HCPCS: 36415; 71045; 71250; 74176; 76770; 80048; 80069; 80076; 81003; 82274; 82570; 82728; 82746; 82947; 83036; 83520; 83540; 83690; 83735; 83880; 83970; 84100; 84145; 84156; 84466; 84484; 84550; 85025; 85044; 85379; 85610; 86021; 86038; 86160; 86225; 86317; 86430; 86704; 86706; 86850; 86900; 86901; 87045; 87046; 87077; 87086; 87088; 87186; 87324; 87340; 87449; 87522; 89055; 93005; 93306; 96361; 96374; 97116; 97161; 97166; 97530; 99285; C9113; J1650; J1815; J1940; J3475; J7030

== ENCOUNTER 2021-12-27 11:21 | Observation (INO) | payer OTHER ==
--- OUTSIDE RECORDS SUMMARY | 2021-12-27 11:28 | XMS REPORT | Continuity of Care Document ---
:1945 Author Organization [facility] t Address [address] [place] [address] Care Team Providers Name Role Phone Halley Doshi MD Primary Care Physician Dax Salinas Attending Clinician Unavailable ADIA WHITEHEAD Attending Clinician Unavailable Lab, - Db Attending Clinician Unavailable Halley Doshi MD Attending Clinician Doctor Unassigned, Name Attending Clinician Unavailable Singer SARAVIA Attending Clinician WONDIFUL Admitting Clinician Unavailable Dax Salinas Admitting Clinician Unavailable Payers Payer Name Policy Type Policy Number Effective Date Expiration Date S nickolas [facility] DUAL [id number] 2020 COMP HMO D SNP 00:00:[address] [facility] [id number] 2021 [place] 00:00[place] [id number] 2011 Universit y of [id number] 00:00:00 [facility] marcia /2011-[id number]- Branch [id number], [place] [address]Ujyljbl d Problems Condition Condition Condition Status Onset Resolution Last Treating Co mments Source Name Details Category Date Date Treatment Clinician Date Chronic Chronic Disease Active 2020-10 Univers anemia anemia 1-06 ity of 00:00: [place] 00 Medical Branch Gastroesop Gastroesop Disease Active U dianaers hageal hageal 8-31 ity of reflux reflux 00:00: [place] disease disease 00 Medical without without Branch esophagiti esophagiti s s HFrEF HFrEF Disease Active Univers (heart (heart 06-05 ity of failure failure 00:00: [place] with with 00 Medical reduced reduced Branch ejection ejection fraction) fraction) Pneumonia Pneumonia Disease Active Uni vers due to due to 805 ity of COVID-19 COVID-19 00:00: [place] virus virus 00 Medical Branch Dysthymia Dysthymia Disease Active Uni vers 1-23 ity of 00:00: [place] 00 Medical Branch Osteopenia Osteopenia Disease Active 2019- U nivers 1-04 ity of 00:00: [place] 00 Medical Branch Abdominal Abdominal Disease Active 2019- Uni vers wall wall 0-29 ity of hernia hernia 00:00: [place] [facility] Abdominal Abdominal Disease Active 2020- Uni vers wall wall 0-29 ity of hernia hernia 00:00: [place] 00 Medical Branch Cervical Cervical Disease Active 2020-0 Unive rs spine spine 5-12 ity of arthritis arthritis 00:00[place] Chronic Chronic Disease Active 2020-0 Univers neck pain neck pain 5-12 ity of 00:00: [place] 00 Medical Branch Microscopi Microscopi Disease Active 2020-0 U nivers c c 3-01 ity of hematuria hematuria 00:00[place] Lower Lower Disease Active 2020-0 Univers urinary urinary 3-01 ity of tract tract 00:00: [place] symptoms symptoms 00 Medica l Branch Chronic Chronic Disease Active 2020-0 Univers diarrhea diarrhea 2-27 ity of 00:00: [place] 00 Medical Branch Medicare Medicare Disease Active 2018-10 Unive rs annual annual 2-16 ity of wellness wellness 00:00: [place] visit, visit, 00 Medical subsequent subsequent Br anch Migraine Migraine Disease Active 2018-10 Unive rs with aura with aura 2-13 ity of and with and with 00:00: [place] status status 00 Medical migrainosu migrainosu Br anch s, not s, not intractabl intractabl e e Irritable Irritable Disease Active 2018-10 Uni vers bowel bowel 2-13 ity of syndrome syndrome 00:00: [place] with with 00 Medical diarrhea diarrhea Branch Wheezing Wheezing Disease Active 2018-10 Unive rs 2-13 ity of 00:00: [place] 00 Medical Branch Obesity Obesity Disease Active Univers (BMI (BMI 5-12 ity of 30-39.9) 30-39.9) 00:00: [place] 00 Medical Branch CKD CKD Disease Active 2015-10 Univers (chronic (chronic 0-22 ity of kidney kidney 00:00: [place] disease) disease) 00 Medica l stage 3, stage 3, Branch GFR 30-59 GFR 30-59 ml/min ml/min Epigastric Epigastric Disease Active U nivers pain pain 4-07 ity of 00:00: [place] 00 Medical Branch Allergic Allergic Disease Active Unive rs rhinitis, rhinitis, 4-07 ity of unspecifie unspecifie 00:00[place] allergic d allergic 00 Me dical rhinitis rhinitis Branch type type Type 2 Type 2 Disease Active Univers diabetes diabetes 4-07 ity of mellitus mellitus 00:00: [place] with with 00 Medical complicati complicati Br anch on, with on, with long-term long-term current current use of use of insulin insulin UTI (lower UTI (lower Disease Active U nivers urinary urinary 4-07 ity of tract tract 00:00: [place] infection) infection) 00 Me dical Branch Hyperkalem Hyperkalem Disease Active U nivers ia ia 4-07 ity of 00:00: [place] 00 Medical Branch Fatty Fatty Disease Active Univers liver liver 2-02 ity of disease, disease, 00:00: [place] nonalcohol nonalcohol 00 Me dical ic ic Branch Ischemic Ischemic Disease Active 2014-10 Unive rs cardiomyop cardiomyop 10-21 it y of athy athy 00:00: [place] 00 Medical Branch 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 10-21 ity of disease disease 00:00: [place] involving involving 00 Medi [place]iram [place] Branch coronary coronary artery artery without without angina angina pectoris pectoris PAD PAD Disease Active 2014-10 Univers (periphera (periphera 10-21 it y of l artery l artery 00:00: [place] disease) disease) 00 Medica l Branch Essential Essential Disease Active 2014-10 Uni vers hypertensi hypertensi 10-21 it y of on on 00:00: [place] 00 Medical Branch COPD COPD Disease Active Univers (chronic (chronic ity of obstructiv obstructiv [place] e e Medical pulmonary pulmonary Bran ch disease) disease) Dyslipidem Dyslipidem Disease Active U andrew ia ia ity of [facility] Chronic Chronic Disease Resolve 2016-07-27 2016-07-28 Univers kidney kidney d 11-07 00:00:00 01:43:12 ity of disease, disease, 00:00: [place] stage 4 stage 4 00 Medical (severe) (severe) Branch Postsurgic Postsurgic Disease Resolve 2014-102016-07-27 2016-07-28 Univers al al d 10-21 00:00:00 01:43:03 ity of aortocoron aortocoron 00:00: [place] rajan bypass rajan bypass 00 Me dical status status Branch Allergies, Adverse Reactions, Alerts Allergy Allergy Status Severity Reaction(s) Onset Inactive Treating Comm ents Source Name Type Date Date Clinician Metformi Propensi Active Diarrhea 2020-10 Univ ers n ty to 0-28 ity of adverse 00:00: [place] reaction 00 Medical s Branch METFORMI DRUG Active Diarrhea 2020-10 Univer s N INGREDI 0-28 ity of 00:00: [place] 00 Medical Branch ORANGE DRUG Active High Diarrhea Univers JUICE INGREDI 8-29 ity of 00:00: [place] 00 Medical Branch Taney Propensi Active Diarrhea Univer s Juice ty to 8-29 ity of adverse 00:00: [place] reaction 00 Medical s Branch ciproflo DA Active U [facility] xacin 6-14 [place] 00:00: [place] 00 [facility] ciproflo DA Active U 2019-0 [facility] xacin 5-03 [place] 00:00: [place] 00 [facility] ciproflo DA Active SV 2017-1 [facility] xacin 1-09 [place] 00:00: [place] 00 [facility] ciproflo DA Active [place] 2018-0 [facility] xacin 9-07 [place] 00:00: d 00 Medical [place] ciproflo DA Active MO UNKNOWN 2017-0 [facility] xacin 9-07 [place] 00:00: [place] 00 [facility] clopidog DA Active [place] diarrhea, 2017- [facility] rel headache 9- [place] 00:00: [place] 00 [facility] clopidog DA Active MO 2017-0 [facility] rel 9- [place] 00:00: d 00 [facility] Propensi Active Itching Unive rs xacin ty to 8-18 ity of adverse 00:00: [place] reaction 00 Medical s to Branch drug CIPROFLO DRUG Active Med ITCHING Univers XACIN INGREDI 8-18 ity of 00:00: [place] [address] [facility] ciproflo DA Active MO 2013-0 [facility] xacin 7-10 [place] 00:00: e 00 Medical [place] clopidog DA Active MO 2013-0 [facility] rel 7-10 [place] 00:[facility]: e [facility] Social History Social Habit Start Date Stop Date Quantity Comments Source Exposure to Not sure [facility] SARS-CoV-2 [facility] [place] (event) Branch Alcohol intake 2021-11-07 2021-11-07 Current University of 00:00:00 00:00:00 non-drinker of [facility] alcohol Branch (finding) Tobacco use and 2021-05-10 2021-05-10 Never used Universit y of exposure 00:00:00 00:00:00 [facility] Tobacco Comment 2021-05-10 2021-05-10 6 yrs ago last Unive rsity of 00:00:00 00:00:00 smoke [facility] Sex [birth year] Universit y of 00:00:00 00:00:00 [place] [facility] Smoking Status Start Date Stop Date Source Former smoker 2021-05-10 00:00:00 2021-05-10 00:00:00 Universi ty of [place] [facility] Never smoker University [facility] Medical Branch Medications Ordered Filled Start Stop Current Ordering Indication Dosage Frequency Signature Comments Components Source Medication Medication Date Date Medication? Clinician (SIG) Name Name nitroglycer Yes [id number] .4mg Place 1 Univers in 0.4 mg 2-02 tablet ity of sublingual 00:00: [place] the [place] tablet 00 tongue Medical every 5 Branch (five) minutes as needed for Chest pain. albuterol Yes [id number] 2{puff} Inhale 2 Univers 90 2-02 Puffs ity of mcg/actuati 00:00: every 6 [place] as on inhaler 00 (six) Medical hours as Branch needed for Wheezing or Shortness of Breath. Insulin Yes [id number] 52U inject 52 U nivers Glargine 2-02 Units ity of (LANTUS 00:00: under the [place] SOLOSTAR 00 skin 2 Medical U-100 (two) Branch INSULIN) times 100 unit/mL daily. (3 mL) injection atorvastati Yes [id number] 40mg Take 1 Univers n 40 mg 1-18 tablet by ity of tablet 00:00: mouth [place] 00 daily. Medical Branch gabapentin 2020-10 Yes [id number] 300mg Take 1 Univers 300 mg 1-16 capsule by ity of capsule 00:00: mouth at [place] 00 bedtime. Medical Branch triamcinolo 2020-10 Yes [id number] Apply to Univers ne 0.5 % 0-29 9107 area(s) 2 ity of ointment 00:00: (two) [place] 00 times Medical daily. Branch lancets-blo 2020-10 Yes [id number] 1{each} 1 Each 2 Univers od glucose 0-15 (two) ity of strips 30 00:00: times [place] gauge Cmpk 00 daily. DX Medi hiram E11.9 Branch (Brand upon insurance approval) UNIFINE 2020-10 Yes USE Univers PENTIPS 0-15 DIRECTED ity of PLUS 33 00:00: FOR TWICE [place] gauge x 00 A DAY Medical " Ndle INSULIN Branch ADMINISTRA TION. fsh-flx-prm Yes 1{capsu Take 1 U nivers -blkbor-om 9-05 le} capsule by ity of 3,6,9 #6 17:15: mouth [place] (FISH, FLAX 17 daily. Medica l & BORAGE 1,040 Branch OIL, PRIM,) mg/575mg 400-400-200 EPA/425mg mg Cap DHA multivit-ir Yes 1{tbl} Take 1 Tab Univers on-FA with 9-05 by mouth ity o f Ca&mins 17:15: daily. [place] (THERA-TABS 17 Medical M) 27 mg Branch iron-400 mcg Tab omeg3/epa/d Yes Take by Un sherrell mane/fish 9-05 mouth. ity of oil/flax/E 17:15: [place] (THERA 17 Medical TEARS Branch NUTRITION ORAL) CALCIUM-MAG Yes Take by Un sherrell NESIUM-ZINC 9-05 mouth. ity of ORAL 17:15: Also with [place] 17 vitamin d Medical Branch docosahexan Yes 1200mg Take 1,200 Univers oic 9-05 mg by ity of acid/epa 17:15: mouth. [place] (FISH OIL 17 360mg Medical ORAL) omega 3 Branch bacitracin Yes [id number] Apply to Univers 500 9-05 affected ity of unit/gram 00:00: area(s) 4 [place] as ointment 00 (four) Medical times Branch daily. simethicone Yes [id number] 80mg Take 1 Univers 80 mg 9-05 tablet by ity of chewable 00:00: mouth [place] tablet 00 after Medical meals and Branch at bedtime. zinc Yes [id number] 220mg Take 1 Univer s sulfate 50 8-09 capsule by ity of mg zinc 00:00: mouth [place] (220 mg) 00 daily. Medical capsule Branch thiamine Yes [id number] 100mg Take 1 Un sherrell 100 mg 8-09 tablet by ity of tablet 00:00: mouth [place] 00 daily. Medical Branch vitamin C Yes [id number] 1000mg Take 1 Univers with kwame 8-08 tablet by ity o f hips 1,000 00:00: mouth [place] mg tablet 00 daily. Medical Branch cholecalcif Yes [id number] 2000U Take 2 Univers carmelina, 8-08 tablets by ity of vitamin D3, 00:00: mouth [place] 25 mcg 00 daily. Medical (1,000 Branch unit) tablet blood sugar Yes [id number] USE TO Univers diagnostic 04-27 TEST BLOOD ity of (ONETOUCH 00:00: SUGAR [place] VERIO TEST 00 TWICE Medical STRIPS) DAILY; Branch strip ICD-10 E11.8 metoprolol Yes [id number] 50mg Take 1 U nivers succinate 6-24 tablet by ity o f XL 50 mg 24 00:00: mouth [place] hr tablet 00 daily. Medical Branch LOSARTAN 25 Yes [id number] 25mg TAKE 1 Univers mg tablet 6-21 TABLET BY ity o f 00:00: MOUTH [place] 00 DAILY. Medical Branch fsh-flx-prm Yes 1{capsu Take 1 U nivers -blkbor-om 4-20 le} capsule by ity of 3,6,9 #6 14:58: mouth [place] (FISH, FLAX 36 daily. Medica l & BORAGE 1,040 Branch OIL, PRIM,) mg/575mg 400-400-200 EPA/425mg mg Cap DHA multivit-ir Yes 1{tbl} Take 1 Tab Univers on-FA with 4-20 by mouth ity o f Ca&mins 14:58: daily. [place] (THERA-TABS 36 Medical M) 27 mg Branch iron-400 mcg Tab omeg3/epa/d Yes Take by Un sherrell mane/fish 4-20 mouth. ity of oil/flax/E 14:58: [place] (THERA 36 Medical TEARS Branch NUTRITION ORAL) CALCIUM-MAG Yes Take by Un sherrell NESIUM-ZINC 4-20 mouth. ity of ORAL 14:58: Also with [place] 36 vitamin d Medical Branch docosahexan Yes 1200mg Take 1,200 Univers oic 4-20 mg by ity of acid/epa 14:58: mouth. [place] (FISH OIL 36 360mg Medical ORAL) omega 3 Branch FUROSEMIDE Yes Ischemic TAKE 1 U nivers 40 mg 4-14 cardiomyopa TABLET BY it y of tablet 00:00: thy MOUTH [place] 00 EVERY DAY Medical Branch FUROSEMIDE Yes [id number] TAKE 1 Univers 40 mg 4-14 TABLET BY ity of tablet 00:00: MOUTH [place] 00 EVERY DAY Medical Branch SPIRIVA Yes Chronic INHALE 1 Uni vers RESPIMAT 3-04 obstructive PUFF BY i ty of 2.5 00:00: pulmonary MOUTH [place] mcg/actuati 00 disease, DAILY. Me dical on Mist unspecified Branc h COPD type SPIRIVA Yes [id number] INHALE 1 Un sherrell RESPIMAT 3-04 PUFF BY ity of 2.5 00:00: MOUTH [place] mcg/actuati 00 DAILY. Medica l on Mist Branch GABAPENTIN Yes Type 2 TAKE 1 Uni vers 100 mg 2-23 diabetes CAPSULE BY ity of capsule 00:00: mellitus MOUTH [place] 00 with EVERY DAY Medical complicatio Branch n, with long-term current use of insulin nitroglycer Yes Coronary .4mg Place 1 Univers in 0.4 mg 2-12 artery tablet ity of sublingual 00:00: disease under the [place] tablet 00 involving tongue Medica l [place] every 5 Branch coronary (five) artery of minutes as [place] needed for heart Chest without pain. angina pectoris blood sugar Yes Type 2 USE TO Un sherrell diagnostic 2-10 diabetes TEST BLOOD ity of (ONETOUCH 00:00: mellitus SUGAR [place] as VERIO TEST 00 with TWICE Medical STRIPS) complicatio DAILY; [facility] strip n, with ICD-10 long-term E11.8 current use of insulin ONETOUCH 2019-10 Yes USE TO Univers DELICA PLUS 2-18 TEST BLOOD it y of LANCET 33 00:00: SUGARS [place] gauge Misc 00 THREE Medical TIMES Branch DAILY ONETOUCH 2019-10 Yes USE TO Univers DELICA PLUS 2-18 TEST BLOOD it y of LANCET 33 00:00: SUGARS [facility] Misc 00 THREE Medical TIMES Branch DAILY Insulin 2019-10 Yes Type 2 52U inject 52 Uni vers Glargine 0-13 diabetes Units ity of (LANTUS 00:00: mellitus under the [place] SOLOSTAR 00 with skin 2 Medical U-100 complicatio (two) Branch INSULIN) n, with times 100 unit/mL long-term daily. (3 mL) current use injection of insulin Nebulizer & Yes Chronic Use as U nivers Compressor 7-15 obstructive directed; ity of For Neb 00:00: pulmonary ICD-10 [place] as [place] 00 disease, CODE J44.9 Medic al unspecified Branch COPD type Nebulizer & 0 Yes [id number] Use as Univers Compressor 7-15 directed; ity of For Neb 00:00: ICD-10 [place] 00 CODE J44.9 Medical Branch Insulin 2019-0 Yes Use as Univers [place], 6- directed ity of Disposable, 00:00: for twice [place] (BD HERBERTH 00 a day Medical 2ND GEN PEN insulin Branc h NEEDLE) 32 administra gauge x tion. " Ndle losartan 25 2020-0 Yes Ischemic 25mg Take 1 Univers mg tablet 5-12 cardiomyopa tablet by ity of 00:00: thy mouth [place] 00 daily. Medical Branch albuterol Yes [id number] .63mg Inhale 3 Univers 0.63 mg/3 5-12 mL every 6 ity of mL 00:00: (six) [place] nebulizer 00 hours as Medica l solution needed for Branc h Wheezing or Shortness of Breath. montelukast Yes [id number] 10mg Take 1 Univers 10 mg 5-12 tablet by ity of tablet 00:00: mouth [place] 00 every Medical evening. Branch potassium Yes Ischemic 10meq Take 1 U nivers chloride 10 5-12 cardiomyopa tablet by ity of mEq CR 00:00: thy mouth [place] tablet 00 daily. Medical Branch albuterol Yes Chronic .63mg Inhale 3 Univers 0.63 mg/3 5-12 obstructive mL every 6 ity of mL 00:00: pulmonary (six) [place] nebulizer 00 disease, hours as Me dical solution unspecified needed for Branch COPD type Wheezing or Shortness of Breath. montelukast Yes Allergic 10mg Take 1 Univers 10 mg 5-12 cough tablet by ity of tablet 00:00: mouth [place] 00 every Medical evening. Branch potassium 2019-0 2021- No [id number] 10meq Take 1 Univers chloride 10 5-12 02-04 tablet by it y of mEq CR 00:00: 00:00 mouth [place] tablet 00 :00 daily. Medical Branch Lancets 2019- Yes [id number] Check Unive rs Misc 2-13 sugars up ity of 00:00: to 3 times [place] 00 a day. Dx Medical Code Branch E11.9. Brand per insurance. aspirin 325 2018- Yes [id number] 325mg Take 1 Univers mg tablet 2-13 tablet by ity o f 00:00: mouth [place] 00 daily. Medical Branch butalbital- 2018-10 Yes [id number] 1{tbl} Take 1 Univers acetaminoph 2-13 tablet by ity of en-caff 00:00: mouth [place] 50-325-40 00 every 6 Medical mg tablet (six) Branch hours as needed (Migraine) . Lancets 2018-10 Yes Type 2 Check Univers Misc 2-13 diabetes sugars up ity of 00:00: mellitus to 3 times [place] as 00 with a day. Dx Medical complicatio Code Branch n, with E11.9. long-term Brand per current use insurance. of insulin albuterol 2018-10 Yes Chronic 2{puff} Inhale 2 Univers 90 2-13 obstructive Puffs ity of mcg/actuati 00:00: pulmonary every 6 [place] on inhaler 00 disease, (six) Medi hiram unspecified hours as Bran ch COPD type needed for Wheezing or Shortness of Breath. aspirin 325 2018-10 Yes Ischemic 325mg Take 1 Univers mg tablet 2-13 cardiomyopa tablet by ity of 00:00: thy mouth [place] 00 daily. Medical Branch atorvastati 2018-10 Yes Ischemic 40mg Take 1 Univers n 40 mg 2-13 cardiomyopa tablet by ity of tablet 00:00: thy mouth [place] 00 daily. Medical Branch metoprolol 2018-10 Yes Essential 50mg Take 1 Univers succinate 2-13 hypertensio tablet by ity of XL 50 mg 24 00:00: n mouth [place] hr tablet 00 daily. Medical Branch butalbital- 2018-10 Yes Migraine 1{tbl} Take 1 Univers acetaminoph 2-13 with aura tablet by ity of en-caff 00:00: and with mouth [place] 50-325-40 00 status every 6 Medic al mg tablet migrainosus (six) Br anch , not hours as intractable needed (Migraine) . TRUEPLUS 2018-10 Yes USE TO Univers LANCETS 30 0-11 TEST BLOOD ity of gauge Misc 00:00: [place] 2 [place] 00 TIMES Medical DAILY Branch TRUEPLUS 2018-10 Yes USE TO Univers LANCETS 30 0-11 TEST BLOOD ity of gauge Misc 00:00: [place] 2 [place] 00 TIMES Medical DAILY Branch Blood-Gluco 2016-10 Yes [id number] Use BID, Univers se Meter 0-03 DX E11.9 ity of Kit 00:00: (Brand [place] 00 upon Medical insurance Branch approval) Blood-Gluco 2016-10 Yes Type 2 Use BID, Univers se Meter 0-03 diabetes DX E11.9 ity of Kit 00:00: mellitus (Brand [place] 00 with upon Medical complicatio insurance [facility] n, approval) unspecified care home insulin use status lancets-blo 2016-10 Yes Type 2 1{each} 1 Each 2 Univers od glucose 0-03 diabetes (two) ity of strips 30 00:00: mellitus times [place] as gauge Cmpk 00 with daily. DX Medi hiram complicatio E11.9 Branch n, (Brand unspecified upon care home insurance insulin use approval) status Immunizations Ordered Filled Immunization Date Status Comments Sourc e Immunization Name Name Pneumococcal 2018-08-22 Completed University o f Polysaccharide, 00:00:00 [place] Med ical PPSV23 (PNEUMOVAX) Branch Pneumococcal 2018-08-22 Completed [place] o f Polysaccharide, 00:00:00 [place] Med ical PPSV23 (PNEUMOVAX) Branch Procedures Procedure Date / Time Performing Clinician Source Performed COMP. METABOLIC PANEL 2021-11-07 16:33:00 [id number] CBC WITHOUT DIFF 2021-11-07 16:33:00 [facility] [place] AUTHOR[facility] FOR 2021-01-19 05:01:00 Doctor Unassigned, No Univ [facility] RELEASE OF PHI Name Medical Branch [id number] 2020-05-27 00:00:00 [facility] [id number] 2020-05-27 00:00:00 [facility] [id number] 2020-05-27 00:00:00 [facility] [id number] 2020-05-27 [id number] 2020-[facility]27 00:00:00 [facility] [id number] 2020-05-27 00:00:00 [facility] Plan of Care Planned Activity Planned Date Details Comments Source Future Scheduled 2030-08-09 Screening for University of Test 00:00:00 [facility] (procedure) [code = Branch [id number]] Future Scheduled 2022-01-25 Creatinine University of Test 00:00:00 measurement [place] Medical (procedure) [code = Branch [id number]] Future Scheduled 2022-01-25 Calculated low Universit y of Test 00:00:00 density lipoprotein [place] [facility] dical cholesterol level Branch (procedure) [code = 832214832] Future Scheduled 2021-10-27 DTaP,Tdap,and Td Postponed from Unive rsity of Test 00:00:00 Vaccines (1 - Tdap) 1964 [place] [facility] dical [code = (Insurance / Branch DTaP,Tdap,and Td Financial) Vaccines (1 - Tdap)] Future Scheduled 2021-10-27 Depression screening Uni versity of Test 00:00:00 (procedure) [code = [place] [facility] dical [id number]] Branch Future Scheduled 2021-10-27 Medicare Annual Universi ty of Test 00:00:00 Wellness Visit [facility] [place] (procedure) [code = Branch [id number]] Future Scheduled 2021-10-06 Diabetic foot University of Test 00:00:00 examination [place] [facility] (regime/therapy) Branch [code = 308199131] Future Scheduled 2021-08-03 Zoster Recombinant Postponed from Uni versity of Test 00:00:00 Vaccine (SHINGRIX) 1995 [place] Med ical (1 of 2) [code = (Refused) Branch Zoster Recombinant Vaccine (SHINGRIX) (1 of 2)] Future Scheduled 2021-07-27 Hemoglobin A1c Universit y of Test 00:00:00 measurement [place] [facility] (procedure) [code = Branch [id number]] Future Scheduled 2021-06-06 INFLUENZA VACCINE Univer sity of Test 00:00:00 (Season Ended) [code [place] M edical = INFLUENZA VACCINE Branch (Season Ended)] Future Scheduled 2020-10-01 Microalbumin University of Test 00:00:00 measurement, urine, [place] [facility] dical quantitative Branch (procedure) [code = 951212138] Future Scheduled 2020-09-17 Examination of Universit y of Test 00:00:00 retina (procedure) [place] Med ical [code = 737840612] Branch Encounters Start End Encounter Admission Attending Care Care Encounter Source Date/Time Date/Time Type Type Clinicians Facility Department ID 2020-05-27 Inpatient FREDI Ortiz SURG [id number] [facility] 11:30:00 Lisseth Wolff22 [facility] 2020-05-11 Inpatient Rita, HCAPM LABO [id number] [facility] 15:00:00 [facility] 2020-04-28 Inpatient Rita, CARLOZPM LABO [id number] [facility] 12:20:00 [facility] [id number] [facility] 2022-03-08 2022-03-08 Outpatient Justina WHITEHEAD [facility] [id number] Univers 11:00:00 11:00:00 DIANE [id number] [facility] 2021-12-25 2021-12-25 Outpatient Justina WHITEHEAD [facility] [id number] [id number] Univers 11:15:00 11:15:00 DIANE [id number] [facility] 2021-12-25 2021-12-25 [facility] [id number] Univers 11:15:00 11:15:00 DIANE [facility] 2021-11-07 2021-11-07 Nut Blank[facility] Operator Lab, Ang - Db [facility] [id number] Univers 10:30:00 11:08:15 Visit Pancho Doshi [facility] [id number] 0 itquentin martin [place] [id number] Alber as BEBE?BLEA [phone] [address] OFFICE BUILDING 2020-07-17 2020-07-17 [facility] [id number] 00:00:00 00:00:00 Wondiful [facility] [id number] [place] [id number] Professio [phone] nal [address] 2020-07-12 2020-07-12 Telephone [facility] [facility] 1.2.840.114 [id number] 00:00:00 00:00:00 [facility] 350.1.13.10 [place] 4.2.7.2.686 Professio [phone] nal [address] One 2020-07-11 2020-07-11 [facility]phone [facility] 1.2.840.114 [id number] 00:00:00 00:00:00 [facility] 350.1.13.10 [place] 4.2.7.2.686 Professio [phone] [address] 2020-06-28 2020-06-28 [facility]phone [facility] 1.2.840.114 [id number] 00:00:00 00:00:00 [facility] 350.1.13.10 [place] 4.2.7.2.686 Professio [phone] [place] [address] Office [facility] 2020-05-20 2020-05-20 Outpatient Dabaghi, HCAWU SURG [id number] 04-24 07:00:00 07:00:00 [facility] [id number] [facility] 2020-04-28 2020-04-28 [facility]phone [facility] 1.2.840.114 [id number] 00:00:00 00:00:00 [facility] [place] 350.1.13.10 [place] 4.2.7.2.686 Professio [phone] [address] 2020-04-28 2020-04-28 Orders Doctor [facility] 1.2.840.114 [id number] 00:00:00 00:00:00 Only Unassigned, ONESIMO 350.1.13.10 [place] [facility] 4.2.7.2.686 [phone] 009 2020-04-21 2020-04-21 [facility]phone [facility] 1.2.840.114 [id number] 00:00:00 00:00:00 [facility] [place] 350.1.13.10 [place] 4.2.7.2.686 Professio [phone] [address] 2020-04-20 2020-04-20 Orders Doctor [facility] 1.2.840.114 [id number] 00:00:00 00:00:00 Only Unassigned, ONESIMO 350.1.13.10 [place] [facility] 4.2.7.2.686 [phone] 009 2020-04-14 2020-04-14 [facility] 1.2.840.114 [id number] 00:00:00 00:00:00 [facility] 350.1.13.10 [place] 4.2.7.2.686 Professio [phone] [address] 2020-03-30 2020-03-30 Telephone [facility] 1.2.840.114 [id number] 00:00:00 00:00:00 [facility] [place] 350.1.13.10 [place] 4.2.7.2.686 Professio [phone] [address] 2020-02-15 2020-02-15 Telemedici [facility] 1.2.840.114 [id number] 07:17:35 09:48:52 ne Visit [facility] 350.1.13.10 [place] 4.2.7.2.686 Professio [phone] [address] 2020-01-27 2020-01-27 Telephone [facility] 1.2.840.114 [id number] 00:00:00 00:00:00 [facility] 350.1.13.10 [place] 4.2.7.2.686 Professio [phone] [address] 2020-01-12 2020-01-12 Emergency [facility] 1.2.299.428 [id number] 15:43:26 16:46:00 Last [place] 350.1.13.10 [place] 4.2.7.2.686 [place] [phone] 084 2019-12-05 2019-12-05 [facility] 1.2.840.114 [id number] 00:00:00 00:00:00 Management [facility] 350.1.13.10 [place] 4.2.7.2.686 Professio [phone] [address] 2019-11-26 2019-11-26 Office [facility] 1.2.840.114 [id number] 09:35:51 10:23:01 Visit [facility] 350.1.13.10 [place] 4.2.7.2.686 Professio [phone] [address] Results Test Description Test Time Test Comments Results Result Comments Source COMP. METABOLIC PANEL (37578) 2021-11-07 22:52:27 Test Item Value Reference Range Interpretation Comme nts NA (test code = 5935564793) 142 mmol/L 135-145 K (test code = 7978864931) 5.5 mmol/L 3.5-5.0 H CL (test code = 6356508459) 115 mmol/L 98-108 H CO2 TOTAL (test code = 8287855846) 19 mmol/L 23-31 L AGAP (test code = 9590888331) 2-16 BUN (test code = 0966863163) 56 mg/dL 7-23 H GLUCOSE (test code = 8364046408) 53 mg/dL 70-110 L CREATININE (test code = 1.45 mg/dL 0.50-1.04 H 7367030969) TOTAL BILI (test code = 0.6 mg/dL 0.1-1.2 9277240381) CALCIUM (test code = 3342660153) 8.9 mg/dL 8.6-10.6 T PROTEIN (test code = 9308128784) 6.3 g/dL 6.3-8.2 ALBUMIN (test code = 8124293108) 3.8 g/dL 3.5-5.0 ALK PHOS (test code = 2416681715) 74 U/L 34-122 ALTv (test code = 1742-6) 40 U/L 5-35 H AST(SGOT) (test code = 9671854768) 32 U/L 13-40 eGFR (test code = 4283891993) mL/min/1.73m2 JUAN (test code = JUAN) Association of Glomerular Filtration Rate (GFR) and Staging of Kidney Disease* + +-------- + ------+| GFR (mL/min/1.73 m2) ?| With Kidney Damage ?| ?Without Kidney Damage+ +-- + +| ?>90 ?| ?Stage one ?| ? Normal ?+ +------- + -------+| ?60-89 ?| ?Stage two ?| ? Decreased GFR ? + +-------- + ------+| ?30-59 ?| ?Stage three ?| ? Stage three ? + +-------- + ------+| ?15-29 ?| ?Stage four ? | ? Stage four ?+ +------- + -------+| ?<15 (or dialysis) ? ?| ?Stage five ? | ? Stage five ?+ +------- + -------+ *Each stage assumes the associated GFR level has been in effect for at least three months. ?Stages 1 to 5, with or without kidney disease, indicate chronic kidney disease. Notes: Determination of stages one and two (with eGFR >59mL/min/1.73 m2) requires estimation of kidney damage for at least three months as defined by structural or functional abnormalities of the kidney, manifested by either:Pathological abnormalities or Markers of kidney damage (including abnormalities in the composition of the blood or urine or abnormalities in imaging tests). Lab Interpretation (test code = Abnormal 61775-2) [facility] WITHOUT [id number] 20:09:26 Test Item Value Reference Range Interpretation Comments WBC (test code = 6690-2) See_Comment [A utomated message] The system [employer] generated this result transmit osman reference range : 4.30 - 11.10 10*3/?L. The reference range was not used to interpret this result as normal/abnormal . RBC (test code = 789-8) See_Comment L [Au tomated message] The system [employer] generated this result transmit osman reference range : 3.93 - 5.25 10* 6/?L. The reference r marshal was not used to interpret this result as normal/abnormal . HGB (test code = 718-7) 10.3 g/dL 11.6-15.0 L HCT (test code = 4544-3) 31.0 % 35.7-45.2 L MCH (test code = 785-6) 32.0 pg 25.9-32.8 MCV (test code = 787-2) 96.3 fL 80.6-95.5 H MCHC (test code = 786-4) 33.2 g/dL 31.6-35.1 PLT (test code = 777-3) See_Comment L [Au tomated message] The system [employer] generated this result transmit osman reference range : 166 - 358 10*3/?L. The reference range was not used to interpret this result as normal/abnormal . MPV (test code = 10.6 fL 9.5-12.9 19437-3) RDW-CV (test code = 11.9 % 12.0-15.5 L 788-0) RDW-SD (test code = 41.6 fL 39.0-49.9 74317-3) NRBC x10^3 (test code = <0.01 See_Comment [Au tomated message] 7903215231) The system [employer] generated this result transmit osman reference range : 10*3/?L. The reference range was not used to interpret this result as normal/abnormal . NRBC/100 WBC (test code See_Comment [Au tomated message] = 4660262424) The system [employer] generated this result transmit osman reference range : 0.0 - 10.0 /100 WBC s. The reference r marshal was not used to interpret this result as normal/abnormal . IPF % (test code = 2838538049) Lab Interpretation (test Abnormal code = 19717-0) [facility] [id number] 10:13:00 Test Item Value Reference Range Interpretation Comments GLUCOSE BEDSIDE TESTING (test code 205 MG/DL 60-99 H = GLUBED) GLUCOSE BEDSIDE [id number] 08:55:00 Test Item Value Reference Range Interpretation Comments GLUCOSE BEDSIDE TESTING (test code 198 MG/DL 60-99 H = GLUBED) GLUCOSE BEDSIDE [id number] 04:28:00 Test Item Value Reference Range Interpretation Comments GLUCOSE BEDSIDE TESTING (test code 202 MG/DL 60-99 H = GLUBED) GLUCOSE BEDSIDE [id number] 23:36:00 Test Item Value Reference Range Interpretation Comments GLUCOSE BEDSIDE TESTING (test code 194 MG/DL 60-99 H = GLUBED) GLUCOSE BEDSIDE [id number] 19:34:00 Test Item Value Reference Range Interpretation Comments GLUCOSE BEDSIDE TESTING (test code 226 MG/DL 60-99 H = GLUBED) GLUCOSE BEDSIDE [id number] 16:40:00 Test Item Value Reference Range Interpretation Comments GLUCOSE BEDSIDE TESTING (test code 239 MG/DL 60-99 H = GLUBED) GLUCOSE BEDSIDE [id number] 13:41:00 Test Item Value Reference Range Interpretation Comments GLUCOSE BEDSIDE TESTING (test code 220 MG/DL 60-99 H = GLUBED) GLUCOSE BEDSIDE [id number] 11:47:00 Test Item Value Reference Range Interpretation Comments GLUCOSE BEDSIDE TESTING (test code 275 MG/DL 60-99 H = GLUBED) GLUCOSE BEDSIDE [id number] 09:28:00 Test Item Value Reference Range Interpretation Comments GLUCOSE BEDSIDE TESTING (test code 285 MG/DL 60-99 H = GLUBED) GLUCOSE BEDSIDE [id number] 06:09:00 Test Item Value Reference Range Interpretation Comments GLUCOSE BEDSIDE TESTING (test code 237 MG/DL 60-99 H = GLUBED) GLUCOSE BEDSIDE [id number] 20:14:00 Test Item Value Reference Range Interpretation Comments GLUCOSE BEDSIDE TESTING (test code 261 MG/DL 60-99 H = GLUBED) GLUCOSE BEDSIDE [id number] 13:10:00 Test Item Value Reference Range Interpretation Comments GLUCOSE BEDSIDE TESTING (test code 201 MG/DL 60-99 H = GLUBED) GLUCOSE BEDSIDE [id number] 08:39:00 Test Item Value Reference Range Interpretation Comments GLUCOSE BEDSIDE TESTING (test code 252 MG/DL 60-99 H = GLUBED) - XR CHEST [id number] 07:48:00 Patient Name: RUTH ANN MONTEJO Unit No: [id number] EXAMS: CPT CODE: [id number] XR CHEST 1V 19894 EXAM: Chest x-ray, 1 view Dictation location: B2 C OMPARISON: Chest x-ray on 05/28/2020 INDICATION: post op surgery DISCUSSION: An endotracheal tube is in place, with tip over the trachea 7.8 cm above the lamont.Advancement by 4 cm is suggested for more optimal positioning. A right subclavian central venous catheter is unchanged in position. A large right apical bulla is unchanged. There is borderline cardiac silhouette enlargement, with post surgical changes suggestive of previous CABG, and a left subclavian artery or left common carotid artery stent seen near the aortic arch. No acute bony abnormalities are identified. IMPRESSION: 1. Interval placement of an endotracheal tube, with tip 7.8 cm above the lamont. Advancement by 4 cm is suggested for more optimal positioning. No acute abnormalities seen. 2. Unchangedborderline cardiac silhouette enlargement, with post surgical changes of previous CABG. 3. Large right apical bulla. at 0748 Reported and signed by: Mika Draper MD CC: Lisseth Salinas MD; Humberto Carter; Caridad ASHBY Technologist: Christian Dillon, RT(R) Transcrpt Date/Tm/Trnsp: 05/29/2020 (0748) [id number] Orig Print D/T: S: 05/29/2020 (0751) [facility] NAME: RUTH ANN MONTEJO [id number] PHYS: [place] [address] : 1945 AGE: 74 SEX: F LOC: Z.SI12 A PHONE #: [phone] EXAM DATE: 05/29/2020 STATUS: ADM IN FAX #: [phone] RADIOLOGY NO: PAGE 1 Signed ReportCBC W/O DIFF 2020-05-29 06:18:00 Test Item Value Reference Range Interpretation Comments WHITE BLOOD CELL (test code = 8.0 K/MM3 3.8-9.8 N WBC) RED BLOOD CELL (test code = 2.65 M/MM3 3.58-4.97 L RBC) HEMOGLOBIN (test code = HGB) 8.1 G/DL 11.2-14.9 L HEMATOCRIT (test code = HCT) 24.2 % 33.2-43.5 L MEAN CELL VOLUME (test code = 91 fL 80.7-99.1 N MCV) MEAN CELL HGB (test code = MCH) 30.6 pg 27.0-34.1 N MEAN CELL HGB CONCETRATION 33.5 % 32.2-35.7 N (test code = MCHC) RED CELL DISTRIBUTION WIDTH 15.2 % 12.1-15.2 N (test code = RDW) PLATELET COUNT (test code = 89 K/MM3 129-368 L PLT) NEUTROPHIL # (test code = NT#) 5.04 K/mm3 2.0-7.6 N IMMATURE GRANULOCYTE # (test 0.14 x10 3/uL 0-0.03 H code = IG#) LYMPHOCYTE # (test code = LY#) 0.81 K/mm3 1.0-3.8 L MONOCYTE # (test code = MO#) 2.02 K/mm3 0.1-0.8 H EOSINOPHIL # (test code = EO#) 0.01 K/mm3 0.0-0.2 N BASOPHIL # (test code = BA#) 0.02 K/mm3 0.0-0.2 N NUCLEATED RBC # (test code = 0.00 K/mm3 0.0-0.1 N NRBC#) WBC [id number] 06:18:00 Test Item Value Reference Range Interpretation Comments RBC MORPHOLOGY REQUIRED (test code ABNORMAL = RBCM) TOTAL CELLS COUNTED (test code = 130 #CELLS TCC) SEGMENTED NEUTROPHILS (test code = 76.5 % 36.2-73.8 H SEG) BAND NEUTROPHIL (test code = BAND) 6.7 % 0-10 N LYMPHOCYTE (test code = LYMPH) 3.4 % 12.9-45.1 L ATYPICAL LYMPH (test code = 4.2 % 0-0 H ALYMPH) MONOCYTE (test code = MON) 9.2 % 0-11 N NUCLEATED RED BLOOD CELL (test 1 0-0 H code = NRBC) HYPOCHROMIA (test code = HYPO) SLIGHT NONE ANISOCYTOSIS (test code = ANISO) SLIGHT NONE OVALOCYTES (test code = OVAL) FEW NONE PLATELET ESTIMATE (test code = DECREASED ADEQUATE PLTEST) PLATELET MORPHOLOGY (test code = NORMAL NORMAL PLTMORPH) BASIC METABOLIC [id number] 05:11:00 Test Item Value Reference Range Interpretation Comments SODIUM (test code = 137 MMOL/L 137-145 N NA) POTASSIUM (test code = 4.2 MMOL/L 3.5-5.1 N K) CHLORIDE (test code = 112 MMOL/L 98-107 H CL) CARBON DIOXIDE (test 21 MMOL/L 22-30 L code = CO2) GLUCOSE (test code = 276 MG/DL 74-106 H GLU) BLOOD UREA NITROGEN 29 MG/DL 7-17 H (test code = BUN) GLOMERULAR FILTRATION 40 Report ing units: RATE (test code = GFR) ml/mi n/1.73 m2 (Modified MDRD Formula)Referen ce Range: > or = 6 0 ml/min/1.73 m2 CREATININE (test code 1.30 MG/DL 0.52-1.04 H = CREAT) CALCIUM (test code = 7.5 MG/DL 8.4-10.2 L CA) [id number] 05:11:00 Test Item Value Reference Range Interpretation Comments MAGNESIUM (test code = MAG) 2.3 MG/DL 1.6-2.3 BASIC METABOLIC [id number] 05:00:00 Test Item Value Reference Range Interpretation Comments SODIUM (test code = 137 MMOL/L 137-145 N NA) POTASSIUM (test code = 4.2 MMOL/L 3.5-5.1 N K) CHLORIDE (test code = 112 MMOL/L 98-107 H CL) CARBON DIOXIDE (test 21 MMOL/L 22-30 L code = CO2) GLUCOSE (test code = 276 MG/DL 74-106 H GLU) BLOOD UREA NITROGEN 29 MG/DL 7-17 H (test code = BUN) GLOMERULAR FILTRATION 40 Report ing units: RATE (test code = GFR) ml/mi n/1.73 m2 (Modified MDRD Formula)Referen ce Range: > or = 6 0 ml/min/1.73 m2 CREATININE (test code 1.30 MG/DL 0.52-1.04 H = CREAT) CALCIUM (test code = MG/DL 8.7-9.7 CA) [id number] 05:00:00 Test Item Value Reference Range Interpretation Comments MAGNESIUM (test code = MAG) MG/DL 1.6-2.3 BASIC METABOLIC [id number] 04:57:00 Test Item Value Reference Range Interpretation Comments SODIUM (test code = NA) 137 MMOL/L 137-145 N POTASSIUM (test code = K) 4.2 MMOL/L 3.5-5.1 N CHLORIDE (test code = CL) 112 MMOL/L 98-107 H CARBON DIOXIDE (test code = CO2) MMOL/L 22-30 GLUCOSE (test code = GLU) MG/DL 74-106 BLOOD UREA NITROGEN (test code = MG/DL 7-17 BUN) GLOMERULAR FILTRATION RATE (test code = GFR) CREATININE (test code = CREAT) MG/DL 0.52-1.04 CALCIUM (test code = CA) MG/DL 8.7-9.7 [id number] 04:57:00 Test Item Value Reference Range Interpretation Comments MAGNESIUM (test code = MAG) MG/DL 1.6-2.3 CBC W/O [id number] 04:44:00 Test Item Value Reference Range Interpretation Comments WHITE BLOOD CELL (test code = 8.0 K/MM3 3.8-9.8 N WBC) RED BLOOD CELL (test code = 2.65 M/MM3 3.58-4.97 L RBC) HEMOGLOBIN (test code = HGB) 8.1 G/DL 11.2-14.9 L HEMATOCRIT (test code = HCT) 24.2 % 33.2-43.5 L MEAN CELL VOLUME (test code = 91 fL 80.7-99.1 N MCV) MEAN CELL HGB (test code = MCH) 30.6 pg 27.0-34.1 N MEAN CELL HGB CONCETRATION 33.5 % 32.2-35.7 N (test code = MCHC) RED CELL DISTRIBUTION WIDTH 15.2 % 12.1-15.2 N (test code = RDW) PLATELET COUNT (test code = 89 K/MM3 129-368 L PLT) NEUTROPHIL # (test code = NT#) 5.04 K/mm3 2.0-7.6 N IMMATURE GRANULOCYTE # (test 0.14 x10 3/uL 0-0.03 H code = IG#) LYMPHOCYTE # (test code = LY#) 0.81 K/mm3 1.0-3.8 L MONOCYTE # (test code = MO#) 2.02 K/mm3 0.1-0.8 H EOSINOPHIL # (test code = EO#) 0.01 K/mm3 0.0-0.2 N BASOPHIL # (test code = BA#) 0.02 K/mm3 0.0-0.2 N NUCLEATED RBC # (test code = 0.00 K/mm3 0.0-0.1 N NRBC#) WBC [id number] 04:44:00 Test Item Value Reference Range Interpretation Comments RBC MORPHOLOGY REQUIRED (test code = RBCM) TOTAL CELLS COUNTED (test code = TCC) #CELLS SEGMENTED NEUTROPHILS (test code = % 36.2-73.8 SEG) LYMPHOCYTE (test code = LYMPH) % 12.9-45.1 MONOCYTE (test code = MON) % 0-11 PLATELET ESTIMATE (test code = ADEQUATE PLTEST) PLATELET MORPHOLOGY (test code = NORMAL PLTMORPH) CBC W/AUTO [id number] 04:44:00 Test Item Value Reference Range Interpretation Comments WHITE BLOOD CELL (test code = 8.0 K/MM3 3.8-9.8 N WBC) RED BLOOD CELL (test code = 2.65 M/MM3 3.58-4.97 L RBC) HEMOGLOBIN (test code = HGB) 8.1 G/DL 11.2-14.9 L HEMATOCRIT (test code = HCT) 24.2 % 33.2-43.5 L MEAN CELL VOLUME (test code = 91 fL 80.7-99.1 N MCV) MEAN CELL HGB (test code = MCH) 30.6 pg 27.0-34.1 N MEAN CELL HGB CONCETRATION 33.5 % 32.2-35.7 N (test code = MCHC) RED CELL DISTRIBUTION WIDTH 15.2 % 12.1-15.2 N (test code = RDW) PLATELET COUNT (test code = 89 K/MM3 129-368 L PLT) MEAN PLATELET VOLUME (test code 11.0 fl 7.4-10.4 H = MPV) NEUTROPHIL % (test code = NT%) 62.8 % 43-75 N IMMATURE GRANULOCYTE % (test 1.7 % 0.0-2.0 N code = IG%) LYMPHOCYTE % (test code = LY%) 10.1 % 14-44 L MONOCYTE % (test code = MO%) 25.1 % 4-13 H EOSINOPHIL % (test code = EO%) 0.1 % 0-6 N BASOPHIL % (test code = BA%) 0.2 % 0-2 N NUCLEATED RBC % (test code = 0.0 % 0-1.0 N NRBC%) NEUTROPHIL # (test code = NT#) 5.04 K/mm3 2.0-7.6 N IMMATURE GRANULOCYTE # (test 0.14 x10 3/uL 0-0.03 H code = IG#) LYMPHOCYTE # (test code = LY#) 0.81 K/mm3 1.0-3.8 L MONOCYTE # (test code = MO#) 2.02 K/mm3 0.1-0.8 H EOSINOPHIL # (test code = EO#) 0.01 K/mm3 0.0-0.2 N BASOPHIL # (test code = BA#) 0.02 K/mm3 0.0-0.2 N NUCLEATED RBC # (test code = 0.00 K/mm3 0.0-0.1 N NRBC#) WBC [id number] 04:44:00 Test Item Value Reference Range Interpretation Comments RBC MORPHOLOGY REQUIRED (test code = RBCM) TOTAL CELLS COUNTED (test code = TCC) #CELLS SEGMENTED NEUTROPHILS (test code = % 36.2-73.8 SEG) LYMPHOCYTE (test code = LYMPH) % 12.9-45.1 MONOCYTE (test code = MON) % 0-11 PLATELET ESTIMATE (test code = ADEQUATE PLTEST) PLATELET MORPHOLOGY (test code = NORMAL PLTMORPH) GLUCOSE BEDSIDE [id number] 01:46:00 Test Item Value Reference Range Interpretation Comments GLUCOSE BEDSIDE TESTING (test code 255 MG/DL 60-99 H = GLUBED) GLUCOSE BEDSIDE [id number] 20:02:00 Test Item Value Reference Range Interpretation Comments GLUCOSE BEDSIDE TESTING (test code 240 MG/DL 60-99 H = GLUBED) GLUCOSE BEDSIDE [id number] 17:30:00 Test Item Value Reference Range Interpretation Comments GLUCOSE BEDSIDE TESTING (test code 246 MG/DL 60-99 H = GLUBED) [id number] 15:31:00 Test Item Value Reference Range Interpretation Comments POTASSIUM (test code = K) 4.7 MMOL/L 3.5-5.1 N UNABLE TO DRAW BLOOD, REASON: CBNNOTIFIED PATIENT CARE STAFF: [facility] 05/28/20 AT 1508 BY Migdalia Wallace [id number] 15:22:00 Test Item Value Reference Range Interpretation Comments HEMOGLOBIN (test code = HGB) 8.1 G/DL 11.2-14.9 L UNABLE TO DRAW BLOOD, REASON: CBNNOTIFIED PATIENT CARE STAFF: [facility] 05/28/20 AT 1508 BY Migdalia Wallace AnGLUCOSE BEDSIDE [id number] 12:24:00 Test Item Value Reference Range Interpretation Comments GLUCOSE BEDSIDE TESTING (test code 293 MG/DL 60-99 H = GLUBED) HGB [id number] 08:21:00 Test Item Value Reference Range Interpretation Comments HEMOGLOBIN (test code = HGB) 7.4 G/DL 11.2-14.9 L HEMATOCRIT (test code = HCT) 23.0 % 33.2-43.5 L CBC W/O [id number] 08:17:00 Test Item Value Reference Range Interpretation Comments WHITE BLOOD CELL (test code = 7.8 K/MM3 3.8-9.8 N WBC) RED BLOOD CELL (test code = 2.48 M/MM3 3.58-4.97 L RBC) HEMOGLOBIN (test code = HGB) 7.6 G/DL 11.2-14.9 L HEMATOCRIT (test code = HCT) 23.0 % 33.2-43.5 L MEAN CELL VOLUME (test code = 93 fL 80.7-99.1 N MCV) MEAN CELL HGB (test code = MCH) 30.6 pg 27.0-34.1 N MEAN CELL HGB CONCETRATION 33.0 % 32.2-35.7 N (test code = MCHC) RED CELL DISTRIBUTION WIDTH 13.8 % 12.1-15.2 N (test code = RDW) PLATELET COUNT (test code = 105 K/MM3 129-368 L PLT) NEUTROPHIL # (test code = NT#) 5.38 K/mm3 2.0-7.6 N IMMATURE GRANULOCYTE # (test 0.18 x10 3/uL 0-0.03 H code = IG#) LYMPHOCYTE # (test code = LY#) 0.50 K/mm3 1.0-3.8 L MONOCYTE # (test code = MO#) 1.67 K/mm3 0.1-0.8 H EOSINOPHIL # (test code = EO#) 0.02 K/mm3 0.0-0.2 N BASOPHIL # (test code = BA#) 0.02 K/mm3 0.0-0.2 N NUCLEATED RBC # (test code = 0.00 K/mm3 0.0-0.1 N NRBC#) WBC [id number] 08:17:00 Test Item Value Reference Range Interpretation Comments RBC MORPHOLOGY REQUIRED (test code ABNORMAL = RBCM) TOTAL CELLS COUNTED (test code = 130 #CELLS TCC) SEGMENTED NEUTROPHILS (test code = 66.4 % 36.2-73.8 N SEG) BAND NEUTROPHIL (test code = BAND) 20.2 % 0-10 H LYMPHOCYTE (test code = LYMPH) 5.0 % 12.9-45.1 L ATYPICAL LYMPH (test code = 1.7 % 0-0 H ALYMPH) MONOCYTE (test code = MON) 5.9 % 0-11 N BASOPHIL (test code = BASO) 0.8 % 0-2 N POIKILOCYTOSIS (test code = POIK) FEW NONE ANISOCYTOSIS (test code = ANISO) SLIGHT NONE OVALOCYTES (test code = OVAL) FEW NONE PLATELET ESTIMATE (test code = DECREASED ADEQUATE PLTEST) PLATELET MORPHOLOGY (test code = NORMAL NORMAL PLTMORPH) GLUCOSE BEDSIDE [id number] 07:31:00 Test Item Value Reference Range Interpretation Comments GLUCOSE BEDSIDE TESTING (test code 279 MG/DL 60-99 H = GLUBED) GLUCOSE BEDSIDE [id number] 07:07:00 Test Item Value Reference Range Interpretation Comments GLUCOSE BEDSIDE TESTING (test code 222 MG/DL 60-99 H = GLUBED) BASIC METABOLIC [id number] 06:39:00 Test Item Value Reference Range Interpretation Comments SODIUM (test code = 137 MMOL/L 137-145 N NA) POTASSIUM (test code = 5.0 MMOL/L 3.5-5.1 N K) CHLORIDE (test code = 111 MMOL/L 98-107 H CL) CARBON DIOXIDE (test 20 MMOL/L 22-30 L code = CO2) ANION GAP (test code = 11 MMOL/L 14-24 L GAP) GLUCOSE (test code = 312 MG/DL 74-106 HH CALLED TO [facility]UDA[facility]) READBACK ON AT 0637 BY Favian Anderson BLOOD UREA NITROGEN 26 MG/DL 7-17 H (test code = BUN) GLOMERULAR FILTRATION 40 Report ing units: RATE (test code = GFR) ml/mi n/1.73 m2 (Modified MDRD Formula)Referen ce Range: > or = 6 0 ml/min/1.73 m2 CREATININE (test code 1.30 MG/DL 0.52-1.04 H = CREAT) CALCIUM (test code = 7.8 MG/DL 8.4-10.2 L CA) [id number] 06:39:00 Test Item Value Reference Range Interpretation Comments MAGNESIUM (test code = MAG) 1.6 MG/DL 1.6-2.3 N BASIC METABOLIC [id number] 06:33:00 Test Item Value Reference Range Interpretation Comments SODIUM (test code = NA) 137 MMOL/L 137-145 N POTASSIUM (test code = K) 5.0 MMOL/L 3.5-5.1 N CHLORIDE (test code = CL) 111 MMOL/L 98-107 H CARBON DIOXIDE (test code = CO2) MMOL/L 22-30 GLUCOSE (test code = GLU) MG/DL 74-106 BLOOD UREA NITROGEN (test code = MG/DL 7-17 BUN) GLOMERULAR FILTRATION RATE (test code = GFR) CREATININE (test code = CREAT) MG/DL 0.52-1.04 CALCIUM (test code = CA) MG/DL 8.7-9.7 [id number] 06:33:00 Test Item Value Reference Range Interpretation Comments MAGNESIUM (test code = MAG) MG/DL 1.6-2.3 CBC W/O [id number] 06:18:00 Test Item Value Reference Range Interpretation Comments WHITE BLOOD CELL (test code = 7.8 K/MM3 3.8-9.8 N WBC) RED BLOOD CELL (test code = 2.48 M/MM3 3.58-4.97 L RBC) HEMOGLOBIN (test code = HGB) 7.6 G/DL 11.2-14.9 L HEMATOCRIT (test code = HCT) 23.0 % 33.2-43.5 L MEAN CELL VOLUME (test code = 93 fL 80.7-99.1 N MCV) MEAN CELL HGB (test code = MCH) 30.6 pg 27.0-34.1 N MEAN CELL HGB CONCETRATION 33.0 % 32.2-35.7 N (test code = MCHC) RED CELL DISTRIBUTION WIDTH 13.8 % 12.1-15.2 N (test code = RDW) PLATELET COUNT (test code = 105 K/MM3 129-368 L PLT) NEUTROPHIL # (test code = NT#) 5.38 K/mm3 2.0-7.6 N IMMATURE GRANULOCYTE # (test 0.18 x10 3/uL 0-0.03 H code = IG#) LYMPHOCYTE # (test code = LY#) 0.50 K/mm3 1.0-3.8 L MONOCYTE # (test code = MO#) 1.67 K/mm3 0.1-0.8 H EOSINOPHIL # (test code = EO#) 0.02 K/mm3 0.0-0.2 N BASOPHIL # (test code = BA#) 0.02 K/mm3 0.0-0.2 N NUCLEATED RBC # (test code = 0.00 K/mm3 0.0-0.1 N NRBC#) WBC [id number] 06:18:00 Test Item Value Reference Range Interpretation Comments RBC MORPHOLOGY REQUIRED (test code = RBCM) TOTAL CELLS COUNTED (test code = TCC) #CELLS SEGMENTED NEUTROPHILS (test code = % 36.2-73.8 SEG) LYMPHOCYTE (test code = LYMPH) % 12.9-45.1 MONOCYTE (test code = MON) % 0-11 PLATELET ESTIMATE (test code = ADEQUATE PLTEST) PLATELET MORPHOLOGY (test code = NORMAL PLTMORPH) CBC W/AUTO [id number] 06:18:00 Test Item Value Reference Range Interpretation Comments WHITE BLOOD CELL (test code = 7.8 K/MM3 3.8-9.8 N WBC) RED BLOOD CELL (test code = 2.48 M/MM3 3.58-4.97 L RBC) HEMOGLOBIN (test code = HGB) 7.6 G/DL 11.2-14.9 L HEMATOCRIT (test code = HCT) 23.0 % 33.2-43.5 L MEAN CELL VOLUME (test code = 93 fL 80.7-99.1 N MCV) MEAN CELL HGB (test code = MCH) 30.6 pg 27.0-34.1 N MEAN CELL HGB CONCETRATION 33.0 % 32.2-35.7 N (test code = MCHC) RED CELL DISTRIBUTION WIDTH 13.8 % 12.1-15.2 N (test code = RDW) PLATELET COUNT (test code = 105 K/MM3 129-368 L PLT) MEAN PLATELET VOLUME (test code 10.5 fl 7.4-10.4 H = MPV) NEUTROPHIL % (test code = NT%) 69.2 % 43-75 N IMMATURE GRANULOCYTE % (test 2.3 % 0.0-2.0 H code = IG%) LYMPHOCYTE % (test code = LY%) 6.4 % 14-44 L MONOCYTE % (test code = MO%) 21.5 % 4-13 H EOSINOPHIL % (test code = EO%) 0.3 % 0-6 N BASOPHIL % (test code = BA%) 0.3 % 0-2 N NUCLEATED RBC % (test code = 0.0 % 0-1.0 N NRBC%) NEUTROPHIL # (test code = NT#) 5.38 K/mm3 2.0-7.6 N IMMATURE GRANULOCYTE # (test 0.18 x10 3/uL 0-0.03 H code = IG#) LYMPHOCYTE # (test code = LY#) 0.50 K/mm3 1.0-3.8 L MONOCYTE # (test code = MO#) 1.67 K/mm3 0.1-0.8 H EOSINOPHIL # (test code = EO#) 0.02 K/mm3 0.0-0.2 N BASOPHIL # (test code = BA#) 0.02 K/mm3 0.0-0.2 N NUCLEATED RBC # (test code = 0.00 K/mm3 0.0-0.1 N NRBC#) WBC [id number] 06:18:00 Test Item Value Reference Range Interpretation Comments RBC MORPHOLOGY REQUIRED (test code = RBCM) TOTAL CELLS COUNTED (test code = TCC) #CELLS SEGMENTED NEUTROPHILS (test code = % 36.2-73.8 SEG) LYMPHOCYTE (test code = LYMPH) % 12.9-45.1 MONOCYTE (test code = MON) % 0-11 PLATELET ESTIMATE (test code = ADEQUATE PLTEST) PLATELET MORPHOLOGY (test code = NORMAL PLTMORPH) - XR CHEST [id number] 05:24:00 Patient Name: RUTH ANN MONTEJO Unit No: [id number] EXAMS: CPT CODE: [id number] XR CHEST 1V [id number] EXAMINATION: - XR CHEST 1V LOCATION: H61 INDICAT ION/CLINICAL HISTORY: post op surgery COMPARISON: Chest x-ray 05/25/2020TECHNIQUE: Frontal view of the chest. FINDINGS: Right subclavian central line and enteric catheter are stable. The cardiac silhouette is normal in size. Postsurgical change of CABG noted. Bibasilar subsegmental atelectasis is similar. No new consolidation. No appreciable pneumothorax or pleural effusion. IMPRESSION: No significant interval change. at 0524 Reported and signed by: Adrianna Carrasquillo MD CC: Lisseth Salinas MD; Humberto Carter; Caridad ASHBY Technologist: RT Brady(R) Transcrpt Date/Tm/Trnsp: 05/28/2020 (0545) [id number] Orig Print D/T: S: 05/28/2020 (4062) [facility] NAME: RUTH ANN MONTEJO [id number] [address] PHYS: Caridad [place]rozco [place] [address] : 1945 AGE: 74 SEX: F LOC: Z.SI12 A PHONE #: [phone] EXAM DATE: 05/28/2020 STATUS: ADM IN FAX#: [phone] RADIOLOGY NO: PAGE 1 Signed ReportBASIC METABOLIC PANEL 2020-05-28 01:07:00 Test Item Value Reference Range Interpretation Comments SODIUM (test code = 137 MMOL/L 137-145 N NA) POTASSIUM (test code = 5.6 MMOL/L 3.5-5.1 H K) CHLORIDE (test code = 111 MMOL/L 98-107 H CL) CARBON DIOXIDE (test 18 MMOL/L 22-30 L code = CO2) ANION GAP (test code = 14 MMOL/L 14-24 N GAP) GLUCOSE (test code = 277 MG/DL 74-106 H GLU) BLOOD UREA NITROGEN 26 MG/DL 7-17 H (test code = BUN) GLOMERULAR FILTRATION 44 Report ing units: RATE (test code = GFR) ml/mi n/1.73 m2 (Modified MDRD Formula)Referen ce Range: > or = 6 0 ml/min/1.73 m2 CREATININE (test code 1.20 MG/DL 0.52-1.04 H = CREAT) CALCIUM (test code = 7.5 MG/DL 8.4-10.2 L CA) BASIC METABOLIC [id number] 00:55:00 Test Item Value Reference Range Interpretation Comments SODIUM (test code = 137 MMOL/L 137-145 N NA) POTASSIUM (test code = 5.6 MMOL/L 3.5-5.1 H K) CHLORIDE (test code = 111 MMOL/L 98-107 H CL) CARBON DIOXIDE (test MMOL/L 22-30 code = CO2) GLUCOSE (test code = MG/DL 74-106 GLU) BLOOD UREA NITROGEN MG/DL 7-17 (test code = BUN) GLOMERULAR FILTRATION 44 Report ing units: RATE (test code = GFR) ml/mi n/1.73 m2 (Modified MDRD Formula)Referen ce Range: > or = 6 0 ml/min/1.73 m2 CREATININE (test code 1.20 MG/DL 0.52-1.04 H = CREAT) CALCIUM (test code = MG/DL 8.7-9.7 CA) BASIC METABOLIC [id number] 00:53:00 Test Item Value Reference Range Interpretation Comments SODIUM (test code = NA) 137 MMOL/L 137-145 N POTASSIUM (test code = K) 5.6 MMOL/L 3.5-5.1 H CHLORIDE (test code = CL) 111 MMOL/L 98-107 H CARBON DIOXIDE (test code = CO2) MMOL/L 22-30 GLUCOSE (test code = GLU) MG/DL 74-106 BLOOD UREA NITROGEN (test code = MG/DL 7-17 BUN) GLOMERULAR FILTRATION RATE (test code = GFR) CREATININE (test code = CREAT) MG/DL 0.52-1.04 CALCIUM (test code = CA) MG/DL 8.7-9.7 [id number] 00:03:00 Test Item Value Reference Range Interpretation Comments HEMOGLOBIN (test code = HGB) 8.2 G/DL 11.2-14.9 L BASIC METABOLIC [id number] 19:38:00 Test Item Value Reference Range Interpretation Comments SODIUM (test code = 139 MMOL/L 137-145 N NA) POTASSIUM (test code = 5.8 MMOL/L 3.5-5.1 H K) CHLORIDE (test code = 112 MMOL/L 98-107 H CL) CARBON DIOXIDE (test 17 MMOL/L 22-30 L code = CO2) ANION GAP (test code = 16 MMOL/L 14-24 N GAP) GLUCOSE (test code = 220 MG/DL 74-106 H GLU) BLOOD UREA NITROGEN 25 MG/DL 7-17 H (test code = BUN) GLOMERULAR FILTRATION 40 Report ing units: RATE (test code = GFR) ml/mi n/1.73 m2 (Modified MDRD Formula)Referen ce Range: > or = 6 0 ml/min/1.73 m2 CREATININE (test code 1.30 MG/DL 0.52-1.04 H = CREAT) CALCIUM (test code = 7.8 MG/DL 8.4-10.2 L CA) BASIC METABOLIC [id number] 19:37:00 Test Item Value Reference Range Interpretation Comments SODIUM (test code = 139 MMOL/L 137-145 N NA) POTASSIUM (test code = 5.8 MMOL/L 3.5-5.1 H K) CHLORIDE (test code = 112 MMOL/L 98-107 H CL) CARBON DIOXIDE (test MMOL/L 22-30 code = CO2) GLUCOSE (test code = MG/DL 74-106 GLU) BLOOD UREA NITROGEN MG/DL 7-17 (test code = BUN) GLOMERULAR FILTRATION 40 Report ing units: RATE (test code = GFR) ml/mi n/1.73 m2 (Modified MDRD Formula)Referen ce Range: > or = 6 0 ml/min/1.73 m2 CREATININE (test code 1.30 MG/DL 0.52-1.04 H = CREAT) CALCIUM (test code = MG/DL 8.7-9.7 CA) BASIC METABOLIC [id number] 19:35:00 Test Item Value Reference Range Interpretation Comments SODIUM (test code = NA) 139 MMOL/L 137-145 N POTASSIUM (test code = K) 5.8 MMOL/L 3.5-5.1 H CHLORIDE (test code = CL) 112 MMOL/L 98-107 H CARBON DIOXIDE (test code = CO2) MMOL/L 22-30 GLUCOSE (test code = GLU) MG/DL 74-106 BLOOD UREA NITROGEN (test code = MG/DL 7-17 BUN) GLOMERULAR FILTRATION RATE (test code = GFR) CREATININE (test code = CREAT) MG/DL 0.52-1.04 CALCIUM (test code = CA) MG/DL 8.7-9.7 BASIC METABOLIC [id number] 19:34:00 Test Item Value Reference Range Interpretation Comments SODIUM (test code = NA) MMOL/L 137-145 POTASSIUM (test code = K) MMOL/L 3.5-5.1 CHLORIDE (test code = CL) 112 MMOL/L 98-107 H CARBON DIOXIDE (test code = CO2) MMOL/L 22-30 GLUCOSE (test code = GLU) MG/DL 74-106 BLOOD UREA NITROGEN (test code = MG/DL 7-17 BUN) GLOMERULAR FILTRATION RATE (test code = GFR) CREATININE (test code = CREAT) MG/DL 0.52-1.04 CALCIUM (test code = CA) MG/DL 8.7-9.7 [id number] 17:02:00 Test Item Value Reference Range Interpretation Comments ACT-ISTAT (test code = ACTI) 136 SEC 74-137 N ARTERIAL BLOOD [id number] 16:23:00 Test Item Value Reference Range Interpretation Comments ARTERIAL BLOOD GAS PH 7.30 mmHg 7.35-7.45 L (test code = PHA) ARTERIAL BLOOD GAS 32.9 mmHg 35.0-45.0 L PCO2 (test code = PCO2A) ARTERIAL BLOOD GAS PO2 176.2 mmol/L 80.0-100.0 H (test code = PO2A) BICARBONATE TOTAL HCO3 15.8 mmol/L 20.0-26.0 L (test code = HCO3) BASE EXCESS (test code -9.4 mmol/L -3.0-3.0 L = RICKY) ABG O2 SATURATION 99.1 % 95.0-100.0 N All critic al values (test code = SATA) report to and readback by LINO RENEE by XIOMY at 05/27/2020 4:20: 49 PM ABG DELIVERY (test N/C code = GHASSAN) ABG TEMPERATURE (test 37.0 C >37 code = TEMPA) ABG SITE (test code = AL SITEA) ALLENS TEST (test code NA CHECK = ALLENS) FIO2 (test code = 40 % COHBGFFIO2) - XR CHEST [id number] 16:20:00 Patient Name: RUTH ANN MONTEJO Unit No: [id number] EXAMS: CPT CODE: [id number] XR CHEST 1V [id number] EXAM: - XR CHEST 1V 05/27/2020 3:49 PM Location code:C3 HISTORY: 74 years-old Female with post op surgery TECHNIQUE: Frontal portable view of the chest COMPARISON: Chest x-ray performed on 06/12/2018 FINDINGS: Lines and tubes: There is an enteric tube seen without visualization of the distal terminus. There is a right subclavian line seen terminating the expected location of the distal SVC. Cardiomediastinal: The cardiomediastinal silhouette is unchanged. Atherosclerotic calcifications are seen within the aortic knob. Lungs and pleura: The lungs are clear. No pleural effusion. No pneumothorax. Musculoskeletal: No significant s keletal abnormality. IMPRESSION: No radiographic evidence of a focal infiltrate. Enteric tube and right subclavian line. at 1620 Reported and signed by: Michael Hadley MD CC: Lisseth Salinas MD; Caridad ASHBY Technologist: Jarocho Snell, (RT) (R) Transcrpt Date/Tm/Trnsp: 05/27/2020 (162) [id number] OrigPrint D/T: S: 05/27/2020 (0330) [facility] NAME: RUTH ANN MONTEJO [id number] PHYS: [place] [address] : 1945 AGE: 74 SEX: F LOC: Z.SI12 A PHONE #: [phone] EXAM DATE: 05/27/2020 STATUS: ADM IN FAX #: [phone] RADIOLOGY NO: PAGE 1 Signed [id number] 15:07:00 Test Item Value Reference Range Interpretation Comments ACT-ISTAT (test code = ACTI) 257 SEC 74-137 H PROTHROMBIN [id number] 14:54:00 Test Item Value Reference Range Interpretation Comments PROTHROMBIN TIME 14.7 SECONDS 9.4-12.5 H PATIENT (test code = PTP) INTERNATIONAL NORMAL 1.3 The INR is to be RATIO (test code = used only for INR) monitoring oral anticoagulantth erap y. INDICATION I NR VALUE ---- ---- ---- -------1. Prophylaxis, de ep venous thrombos is, including hig h risk surgery. 2.0 - 3.0 2. Prophylaxis, de ep venous thrombos is, hip surgery, treatment for d eep venous thrombosis or pulmonary prevention of systemic emboli sm in patients wit h valvular heart disease, atrial fibrillation, tissue heart va lve, or acute myocar dial infarction. 2.0 - 3 .0 3. Mechanical prosthesis hear t valves, recurrent syste jayesh embolism. 3.0 - 4.5 BASIC METABOLIC [id number] 14:49:00 Test Item Value Reference Range Interpretation Comments SODIUM (test code = 137 MMOL/L 137-145 N NA) POTASSIUM (test code = 6.3 MMOL/L 3.5-5.1 GARCIA D TO DARYNR& K) READBACK ON AT 1449 BY Lily Quintanilla CHLORIDE (test code = 111 MMOL/L 98-107 H CL) CARBON DIOXIDE (test 19 MMOL/L 22-30 L code = CO2) ANION GAP (test code = 13 MMOL/L 14-24 L GAP) GLUCOSE (test code = 215 MG/DL 74-106 H GLU) BLOOD UREA NITROGEN 24 MG/DL 7-17 H (test code = BUN) GLOMERULAR FILTRATION 44 Report ing units: RATE (test code = GFR) ml/mi n/1.73 m2 (Modified MDRD Formula)Referen ce Range: > or = 6 0 ml/min/1.73 m2 CREATININE (test code 1.20 MG/DL 0.52-1.04 H = CREAT) CALCIUM (test code = 7.0 MG/DL 8.4-10.2 L CA) BASIC METABOLIC [id number] 14:47:00 Test Item Value Reference Range Interpretation Comments SODIUM (test code = MMOL/L 137-145 NA) POTASSIUM (test code = MMOL/L 3.5-5.1 K) CHLORIDE (test code = MMOL/L 98-107 CL) CARBON DIOXIDE (test 19 MMOL/L 22-30 L code = CO2) GLUCOSE (test code = 215 MG/DL 74-106 H GLU) BLOOD UREA NITROGEN 24 MG/DL 7-17 H (test code = BUN) GLOMERULAR FILTRATION 44 Report ing units: RATE (test code = GFR) ml/mi n/1.73 m2 (Modified MDRD Formula)Referen ce Range: > or = 6 0 ml/min/1.73 m2 CREATININE (test code 1.20 MG/DL 0.52-1.04 H = CREAT) CALCIUM (test code = 7.0 MG/DL 8.4-10.2 L CA) BASIC METABOLIC [id number] 14:46:00 Test Item Value Reference Range Interpretation Comments SODIUM (test code = MMOL/L 137-145 NA) POTASSIUM (test code = MMOL/L 3.5-5.1 K) CHLORIDE (test code = MMOL/L 98-107 CL) CARBON DIOXIDE (test MMOL/L 22-30 code = CO2) GLUCOSE (test code = MG/DL 74-106 GLU) BLOOD UREA NITROGEN MG/DL 7-17 (test code = BUN) GLOMERULAR FILTRATION 44 Report ing units: RATE (test code = GFR) ml/mi n/1.73 m2 (Modified MDRD Formula)Referen ce Range: > or = 6 0 ml/min/1.73 m2 CREATININE (test code 1.20 MG/DL 0.52-1.04 H = CREAT) CALCIUM (test code = MG/DL 8.7-9.7 CA) BASIC METABOLIC [id number] 14:46:00 Test Item Value Reference Range Interpretation Comments SODIUM (test code = MMOL/L 137-145 NA) POTASSIUM (test code = MMOL/L 3.5-5.1 K) CHLORIDE (test code = MMOL/L 98-107 CL) CARBON DIOXIDE (test 19 MMOL/L 22-30 L code = CO2) GLUCOSE (test code = 215 MG/DL 74-106 H GLU) BLOOD UREA NITROGEN 24 MG/DL 7-17 H (test code = BUN) GLOMERULAR FILTRATION 44 Report ing units: RATE (test code = GFR) ml/mi n/1.73 m2 (Modified MDRD Formula)Referen ce Range: > or = 6 0 ml/min/1.73 m2 CREATININE (test code 1.20 MG/DL 0.52-1.04 H = CREAT) CALCIUM (test code = MG/DL 8.7-9.7 CA) CBC W/AUTO [id number] 14:31:00 Test Item Value Reference Range Interpretation Comments WHITE BLOOD CELL (test code = 6.6 K/MM3 3.8-9.8 N WBC) RED BLOOD CELL (test code = 3.47 M/MM3 3.58-4.97 L RBC) HEMOGLOBIN (test code = HGB) 10.5 G/DL 11.2-14.9 L HEMATOCRIT (test code = HCT) 32.4 % 33.2-43.5 L MEAN CELL VOLUME (test code = 93 fL 80.7-99.1 N MCV) MEAN CELL HGB (test code = MCH) 30.3 pg 27.0-34.1 N MEAN CELL HGB CONCETRATION 32.4 % 32.2-35.7 N (test code = MCHC) RED CELL DISTRIBUTION WIDTH 13.3 % 12.1-15.2 N (test code = RDW) PLATELET COUNT (test code = 124 K/MM3 129-368 L PLT) MEAN PLATELET VOLUME (test code 10.5 fl 7.4-10.4 H = MPV) NEUTROPHIL % (test code = NT%) 67.7 % 43-75 N IMMATURE GRANULOCYTE % (test 1.1 % 0.0-2.0 N code = IG%) LYMPHOCYTE % (test code = LY%) 17.8 % 14-44 N MONOCYTE % (test code = MO%) 12.5 % 4-13 N EOSINOPHIL % (test code = EO%) 0.6 % 0-6 N BASOPHIL % (test code = BA%) 0.3 % 0-2 N NUCLEATED RBC % (test code = 0.0 % 0-1.0 N NRBC%) NEUTROPHIL # (test code = NT#) 4.49 K/mm3 2.0-7.6 N IMMATURE GRANULOCYTE # (test 0.07 x10 3/uL 0-0.03 H code = IG#) LYMPHOCYTE # (test code = LY#) 1.18 K/mm3 1.0-3.8 N MONOCYTE # (test code = MO#) 0.83 K/mm3 0.1-0.8 H EOSINOPHIL # (test code = EO#) 0.04 K/mm3 0.0-0.2 N BASOPHIL # (test code = BA#) 0.02 K/mm3 0.0-0.2 N NUCLEATED RBC # (test code = 0.00 K/mm3 0.0-0.1 N NRBC#) CBC W/AUTO [id number] 13:47:00 Test Item Value Reference Range Interpretation Comments WHITE BLOOD CELL (test 4.3 K/MM3 3.8-9.8 N code = WBC) RED BLOOD CELL (test 2.09 M/MM3 3.58-4.97 L code = RBC) HEMOGLOBIN (test code 6.4 G/DL 11.2-14.9 LL CALLED TO = HGB) M& READBACK ON 05/27/20 AT 121 7 BY Karla Vences HEMATOCRIT (test code 20.0 % 33.2-43.5 L CALLED TO = HCT) M& READBACK ON 05/27/20 AT 121 8 BY Karla Vences MEAN CELL VOLUME (test 96 fL 80.7-99.1 N code = MCV) MEAN CELL HGB (test 30.6 pg 27.0-34.1 N code = MCH) MEAN CELL HGB 32.0 % 32.2-35.7 L CONCETRATION (test code = MCHC) RED CELL DISTRIBUTION 12.8 % 12.1-15.2 N WIDTH (test code = RDW) PLATELET COUNT (test 113 K/MM3 129-368 L code = PLT) MEAN PLATELET VOLUME 10.3 fl 7.4-10.4 N (test code = MPV) NEUTROPHIL % (test 50.6 % 43-75 N code = NT%) IMMATURE GRANULOCYTE % 0.2 % 0.0-2.0 N (test code = IG%) LYMPHOCYTE % (test 35.3 % 14-44 N code = LY%) MONOCYTE % (test code 11.8 % 4-13 N = MO%) EOSINOPHIL % (test 1.6 % 0-6 N code = EO%) BASOPHIL % (test code 0.5 % 0-2 N = BA%) NUCLEATED RBC % (test 0.0 % 0-1.0 N code = NRBC%) NEUTROPHIL # (test 2.19 K/mm3 2.0-7.6 N code = NT#) IMMATURE GRANULOCYTE # 0.01 x10 3/uL 0-0.03 N (test code = IG#) LYMPHOCYTE # (test 1.53 K/mm3 1.0-3.8 N code = LY#) MONOCYTE # (test code 0.51 K/mm3 0.1-0.8 N = MO#) EOSINOPHIL # (test 0.07 K/mm3 0.0-0.2 N code = EO#) BASOPHIL # (test code 0.02 K/mm3 0.0-0.2 N = BA#) NUCLEATED RBC # (test 0.00 K/mm3 0.0-0.1 N code = NRBC#) DIFFERENTIAL [id number] 13:47:00 Test Item Value Reference Range Interpretation Comments RBC MORPHOLOGY REQUIRED (test code = NORMAL RBCM) PLATELET ESTIMATE (test code = ADEQUATE ADEQUATE PLTEST) PLATELET MORPHOLOGY (test code = NORMAL NORMAL PLTMORPH) PROTHROMBIN [id number] 13:24:00 Test Item Value Reference Range Interpretation Comments PROTHROMBIN TIME 21.4 SECONDS 9.4-12.5 H PATIENT (test code = PTP) INTERNATIONAL NORMAL 1.9 The INR is to be RATIO (test code = used only for INR) monitoring oral anticoagulantth erap y. INDICATION I NR VALUE ---- ---- ---- -------1. Prophylaxis, de ep venous thrombos is, including hig h risk surgery. 2.0 - 3.0 2. Prophylaxis, de ep venous thrombos is, hip surgery, treatment for d eep venous thrombosis or pulmonary prevention of systemic emboli sm in patients wit h valvular heart disease, atrial fibrillation, tissue heart va lve, or acute myocar dial infarction. 2.0 - 3 .0 3. Mechanical prosthesis hear t valves, recurrent syste jayesh embolism. 3.0 - 4.5 UNKNOWN INTERFERENCE. PLEASE RECOLLECT IF RESULT IS NEEDED.COMPREHENSIVE METABOLIC [id number] 12:24:00 Test Item Value Reference Range Interpretation Comments SODIUM (test code = NA) 137 MMOL/L 137-145 N POTASSIUM (test code = 4.6 MMOL/L 3.5-5.1 N K) CHLORIDE (test code = 111 MMOL/L 98-107 H CL) CARBON DIOXIDE (test 22 MMOL/L 22-30 N code = CO2) GLUCOSE (test code = 207 MG/DL 74-106 H GLU) BLOOD UREA NITROGEN 25 MG/DL 7-17 H (test code = BUN) GLOMERULAR FILTRATION 44 Report ing units: RATE (test code = GFR) ml/mi n/1.73 m2 (Modified MDRD Formula)Referen ce Range: > or = 6 0 ml/min/1.73 m2 CREATININE (test code = 1.20 MG/DL 0.52-1.04 H CREAT) TOTAL PROTEIN (test 4.2 G/DL 6.3-8.2 L code = PROT) ALBUMIN (test code = 2.1 G/DL 3.5-5.0 L ALB) CALCIUM (test code = 6.8 MG/DL 8.4-10.2 L CA) BILIRUBIN TOTAL (test 0.4 MG/DL 0.2-1.3 N code = BILT) SGOT/AST (test code = 16 UNITS/L 14-36 N AST) SGPT/ALT (test code = 9 UNITS/L <35 ALT) ALKALINE PHOSPHATASE 61 UNITS/L 38-126 N (test code = ALKP) COMPREHENSIVE METABOLIC [id number] 12:22:00 Test Item Value Reference Range Interpretation Comments SODIUM (test code = NA) 137 MMOL/L 137-145 N POTASSIUM (test code = 4.6 MMOL/L 3.5-5.1 N K) CHLORIDE (test code = 111 MMOL/L 98-107 H CL) CARBON DIOXIDE (test 22 MMOL/L 22-30 N code = CO2) GLUCOSE (test code = MG/DL 74-106 GLU) BLOOD UREA NITROGEN 25 MG/DL 7-17 H (test code = BUN) GLOMERULAR FILTRATION 44 Report ing units: RATE (test code = GFR) ml/mi n/1.73 m2 (Modified MDRD Formula)Referen ce Range: > or = 6 0 ml/min/1.73 m2 CREATININE (test code = 1.20 MG/DL 0.52-1.04 H CREAT) TOTAL PROTEIN (test 4.2 G/DL 6.3-8.2 L code = PROT) ALBUMIN (test code = 2.1 G/DL 3.5-5.0 L ALB) CALCIUM (test code = MG/DL 8.7-9.7 CA) BILIRUBIN TOTAL (test 0.4 MG/DL 0.2-1.3 N code = BILT) SGOT/AST (test code = 16 UNITS/L 14-36 N AST) SGPT/ALT (test code = 9 UNITS/L <35 ALT) ALKALINE PHOSPHATASE 61 UNITS/L 38-126 N (test code = ALKP) COMPREHENSIVE METABOLIC [id number] 12:20:00 Test Item Value Reference Range Interpretation Comments SODIUM (test code = NA) 137 MMOL/L 137-145 N POTASSIUM (test code = K) 4.6 MMOL/L 3.5-5.1 N CHLORIDE (test code = CL) 111 MMOL/L 98-107 H CARBON DIOXIDE (test code = CO2) MMOL/L 22-30 GLUCOSE (test code = GLU) MG/DL 74-106 BLOOD UREA NITROGEN (test code = MG/DL 7-17 BUN) GLOMERULAR FILTRATION RATE (test code = GFR) CREATININE (test code = CREAT) MG/DL 0.52-1.04 TOTAL PROTEIN (test code = PROT) G/DL 6.3-8.2 ALBUMIN (test code = ALB) 2.1 G/DL 3.5-5.0 L CALCIUM (test code = CA) MG/DL 8.7-9.7 BILIRUBIN TOTAL (test code = BILT) MG/DL 0.2-1.3 SGOT/AST (test code = AST) UNITS/L 15-37 SGPT/ALT (test code = ALT) UNITS/L <35 ALKALINE PHOSPHATASE (test code = UNITS/L 38-126 ALKP) COMPREHENSIVE METABOLIC [id number] 12:19:00 Test Item Value Reference Range Interpretation Comments SODIUM (test code = NA) MMOL/L 137-145 POTASSIUM (test code = K) MMOL/L 3.5-5.1 CHLORIDE (test code = CL) 111 MMOL/L 98-107 H CARBON DIOXIDE (test code = CO2) MMOL/L 22-30 GLUCOSE (test code = GLU) MG/DL 74-106 BLOOD UREA NITROGEN (test code = MG/DL 7-17 BUN) GLOMERULAR FILTRATION RATE (test code = GFR) CREATININE (test code = CREAT) MG/DL 0.52-1.04 TOTAL PROTEIN (test code = PROT) G/DL 6.3-8.2 ALBUMIN (test code = ALB) 2.1 G/DL 3.5-5.0 L CALCIUM (test code = CA) MG/DL 8.7-9.7 BILIRUBIN TOTAL (test code = BILT) MG/DL 0.2-1.3 SGOT/AST (test code = AST) UNITS/L 15-37 SGPT/ALT (test code = ALT) UNITS/L <35 ALKALINE PHOSPHATASE (test code = UNITS/L 38-126 ALKP) CBC W/AUTO [id number] 12:19:00 Test Item Value Reference Range Interpretation Comments WHITE BLOOD CELL (test 4.3 K/MM3 3.8-9.8 N code = WBC) RED BLOOD CELL (test 2.09 M/MM3 3.58-4.97 L code = RBC) HEMOGLOBIN (test code 6.4 G/DL 11.2-14.9 LL CALLED TO = HGB) JOHANNA.M& READBACK ON 05/27/20 AT 121 7 BY Karla Vences HEMATOCRIT (test code 20.0 % 33.2-43.5 L CALLED TO = HCT) JOHANNA.M& READBACK ON 05/27/20 AT 121 8 BY Karla Vences MEAN CELL VOLUME (test 96 fL 80.7-99.1 N code = MCV) MEAN CELL HGB (test 30.6 pg 27.0-34.1 N code = MCH) MEAN CELL HGB 32.0 % 32.2-35.7 L CONCETRATION (test code = MCHC) RED CELL DISTRIBUTION 12.8 % 12.1-15.2 N WIDTH (test code = RDW) PLATELET COUNT (test 113 K/MM3 129-368 L code = PLT) MEAN PLATELET VOLUME 10.3 fl 7.4-10.4 N (test code = MPV) NEUTROPHIL % (test 50.6 % 43-75 N code = NT%) IMMATURE GRANULOCYTE % 0.2 % 0.0-2.0 N (test code = IG%) LYMPHOCYTE % (test 35.3 % 14-44 N code = LY%) MONOCYTE % (test code 11.8 % 4-13 N = MO%) EOSINOPHIL % (test 1.6 % 0-6 N code = EO%) BASOPHIL % (test code 0.5 % 0-2 N = BA%) NUCLEATED RBC % (test 0.0 % 0-1.0 N code = NRBC%) NEUTROPHIL # (test 2.19 K/mm3 2.0-7.6 N code = NT#) IMMATURE GRANULOCYTE # 0.01 x10 3/uL 0-0.03 N (test code = IG#) LYMPHOCYTE # (test 1.53 K/mm3 1.0-3.8 N code = LY#) MONOCYTE # (test code 0.51 K/mm3 0.1-0.8 N = MO#) EOSINOPHIL # (test 0.07 K/mm3 0.0-0.2 N code = EO#) BASOPHIL # (test code 0.02 K/mm3 0.0-0.2 N = BA#) NUCLEATED RBC # (test 0.00 K/mm3 0.0-0.1 N code = NRBC#) DIFFERENTIAL [id number] 12:19:00 Test Item Value Reference Range Interpretation Comments RBC MORPHOLOGY REQUIRED (test code = RBCM) PLATELET ESTIMATE (test code = PLTEST) ADEQUATE PLATELET MORPHOLOGY (test code = NORMAL PLTMORPH) CBC W/AUTO [id number] 12:19:00 Test Item Value Reference Range Interpretation Comments WHITE BLOOD CELL (test 4.3 K/MM3 3.8-9.8 N code = WBC) RED BLOOD CELL (test 2.09 M/MM3 3.58-4.97 L code = RBC) HEMOGLOBIN (test code 6.4 G/DL 11.2-14.9 LL CALLED TO = HGB) JOHANNA.M& READBACK ON 05/27/20 AT 121 7 BY Karla Vences HEMATOCRIT (test code 20.0 % 33.2-43.5 L CALLED TO = HCT) JOHANNA.M& READBACK ON 05/27/20 AT 121 8 BY Karla Vences MEAN CELL VOLUME (test 96 fL 80.7-99.1 N code = MCV) MEAN CELL HGB (test 30.6 pg 27.0-34.1 N code = MCH) MEAN CELL HGB 32.0 % 32.2-35.7 L CONCETRATION (test code = MCHC) RED CELL DISTRIBUTION 12.8 % 12.1-15.2 N WIDTH (test code = RDW) PLATELET COUNT (test 113 K/MM3 129-368 L code = PLT) MEAN PLATELET VOLUME 10.3 fl 7.4-10.4 N (test code = MPV) NEUTROPHIL % (test 50.6 % 43-75 N code = NT%) IMMATURE GRANULOCYTE % 0.2 % 0.0-2.0 N (test code = IG%) LYMPHOCYTE % (test 35.3 % 14-44 N code = LY%) MONOCYTE % (test code 11.8 % 4-13 N = MO%) EOSINOPHIL % (test 1.6 % 0-6 N code = EO%) BASOPHIL % (test code 0.5 % 0-2 N = BA%) NUCLEATED RBC % (test 0.0 % 0-1.0 N code = NRBC%) NEUTROPHIL # (test 2.19 K/mm3 2.0-7.6 N code = NT#) IMMATURE GRANULOCYTE # 0.01 x10 3/uL 0-0.03 N (test code = IG#) LYMPHOCYTE # (test 1.53 K/mm3 1.0-3.8 N code = LY#) MONOCYTE # (test code 0.51 K/mm3 0.1-0.8 N = MO#) EOSINOPHIL # (test 0.07 K/mm3 0.0-0.2 N code = EO#) BASOPHIL # (test code 0.02 K/mm3 0.0-0.2 N = BA#) NUCLEATED RBC # (test 0.00 K/mm3 0.0-0.1 N code = NRBC#) DIFFERENTIAL [id number] 12:19:00 Test Item Value Reference Range Interpretation Comments RBC MORPHOLOGY REQUIRED (test code = RBCM) PLATELET ESTIMATE (test code = PLTEST) ADEQUATE PLATELET MORPHOLOGY (test code = NORMAL PLTMORPH) BASIC METABOLIC [id number] 07:56:00 Test Item Value Reference Range Interpretation Comments SODIUM (test code = 141 MMOL/L 137-145 N NA) POTASSIUM (test code = 4.6 MMOL/L 3.5-5.1 N K) CHLORIDE (test code = 105 MMOL/L 98-107 N CL) CARBON DIOXIDE (test 27 MMOL/L 22-30 N code = CO2) ANION GAP (test code = 14 MMOL/L 14-24 N GAP) GLUCOSE (test code = 140 MG/DL 74-106 H GLU) BLOOD UREA NITROGEN 28 MG/DL 7-17 H (test code = BUN) GLOMERULAR FILTRATION 37 Report ing units: RATE (test code = GFR) ml/mi n/1.73 m2 (Modified MDRD Formula)Referen ce Range: > or = 6 0 ml/min/1.73 m2 CREATININE (test code 1.40 MG/DL 0.52-1.04 H = CREAT) CALCIUM (test code = 8.7 MG/DL 8.4-10.2 N CA) LIPID PROFILE (CORONARY RISK)2020-05-27 07:56:00 Test Item Value Reference Range Interpretation Comments TRIGLYCERIDES (test 179 MG/DL TRIGLYCE RIDES code = TRIG) REFERENCE RANGE:Normal: < 150 mg/dLBorderline High: 150-199 mg/dLHi gh: 200-499 mg/dLVe ry High: >=500 mg/ dL CHOLESTEROL (test code 128 MG/DL <200 = CHOL) HDL CHOLESTEROL (test 29 MG/DL 40-59 L code = HDL) LIPOPROTEIN LDL (test 87 MG/DL 0-99 N code = LDL) OPTIMAL........ .<100 mg/dLNEAR OPTIMAL/ABOVE OPTIMAL........ .100-12 9 mg/dL BORDERLINE HIGH.........13 0-159 mg/dL HIGH.........16 0-189 mg/dL VERY HIGH...... ...>/= 190 mg/dL [id number] 07:56:00 Test Item Value Reference Range Interpretation Comments MAGNESIUM (test code = MAG) 1.8 MG/DL 1.6-2.3 N BASIC METABOLIC [id number] 07:54:00 Test Item Value Reference Range Interpretation Comments SODIUM (test code = 141 MMOL/L 137-145 N NA) POTASSIUM (test code = 4.6 MMOL/L 3.5-5.1 N K) CHLORIDE (test code = 105 MMOL/L 98-107 N CL) CARBON DIOXIDE (test 27 MMOL/L 22-30 N code = CO2) ANION GAP (test code = 14 MMOL/L 14-24 N GAP) GLUCOSE (test code = 140 MG/DL 74-106 H GLU) BLOOD UREA NITROGEN 28 MG/DL 7-17 H (test code = BUN) GLOMERULAR FILTRATION 37 Report ing units: RATE (test code = GFR) ml/mi n/1.73 m2 (Modified MDRD Formula)Referen ce Range: > or = 6 0 ml/min/1.73 m2 CREATININE (test code 1.40 MG/DL 0.52-1.04 H = CREAT) CALCIUM (test code = 8.7 MG/DL 8.4-10.2 N CA) LIPID PROFILE (CORONARY RISK)2020-05-27 07:54:00 Test Item Value Reference Range Interpretation Comments TRIGLYCERIDES (test 179 MG/DL TRIGLYCE RIDES code = TRIG) REFERENCE RANGE:Normal: < 150 mg/dLBorderline High: 150-199 mg/dLHi gh: 200-499 mg/dLVe ry High: >=500 mg/ dL CHOLESTEROL (test code 128 MG/DL <200 = CHOL) HDL CHOLESTEROL (test 29 MG/DL 40-59 L code = HDL) LIPOPROTEIN LDL (test MG/DL 0-99 code = LDL) [id number] 07:54:00 Test Item Value Reference Range Interpretation Comments MAGNESIUM (test code = MAG) 1.8 MG/DL 1.6-2.3 N PROTHROMBIN [id number] 07:49:00 Test Item Value Reference Range Interpretation Comments PROTHROMBIN TIME 12.0 SECONDS 9.4-12.5 N PATIENT (test code = PTP) INTERNATIONAL NORMAL 1.1 The INR is to be RATIO (test code = used only for INR) monitoring oral anticoagulantth erap y. INDICATION I NR VALUE ---- ---- ---- -------1. Prophylaxis, de ep venous thrombos is, including hig h risk surgery. 2.0 - 3.0 2. Prophylaxis, de ep venous thrombos is, hip surgery, treatment for d eep venous thrombosis or pulmonary prevention of systemic emboli sm in patients wit h valvular heart disease, atrial fibrillation, tissue heart va lve, or acute myocar dial infarction. 2.0 - 3 .0 3. Mechanical prosthesis hear t valves, recurrent syste jayesh embolism. 3.0 - 4.5 PTT [id number] 07:49:00 Test Item Value Reference Range Interpretation Comments PTT ACTIVATED (test code = APTT) 30.8 SECONDS 25.1-36.5 N BASIC METABOLIC [id number] 07:44:00 Test Item Value Reference Range Interpretation Comments SODIUM (test code = 141 MMOL/L 137-145 N NA) POTASSIUM (test code = 4.6 MMOL/L 3.5-5.1 N K) CHLORIDE (test code = 105 MMOL/L 98-107 N CL) CARBON DIOXIDE (test 27 MMOL/L 22-30 N code = CO2) ANION GAP (test code = 14 MMOL/L 14-24 N GAP) GLUCOSE (test code = MG/DL 74-106 GLU) BLOOD UREA NITROGEN MG/DL 7-17 (test code = BUN) GLOMERULAR FILTRATION 37 Report ing units: RATE (test code = GFR) ml/mi n/1.73 m2 (Modified MDRD Formula)Referen ce Range: > or = 6 0 ml/min/1.73 m2 CREATININE (test code 1.40 MG/DL 0.52-1.04 H = CREAT) CALCIUM (test code = MG/DL 8.7-9.7 CA) LIPID PROFILE (CORONARY RISK)2020-05-27 07:44:00 Test Item Value Reference Range Interpretation Comments TRIGLYCERIDES (test code = TRIG) MG/DL CHOLESTEROL (test code = CHOL) 128 MG/DL <200 HDL CHOLESTEROL (test code = HDL) MG/DL 40-59 LIPOPROTEIN LDL (test code = LDL) MG/DL 0-99 [id number] 07:44:00 Test Item Value Reference Range Interpretation Comments MAGNESIUM (test code = MAG) MG/DL 1.6-2.3 BASIC METABOLIC [id number] 07:42:00 Test Item Value Reference Range Interpretation Comments SODIUM (test code = NA) 141 MMOL/L 137-145 N POTASSIUM (test code = K) 4.6 MMOL/L 3.5-5.1 N CHLORIDE (test code = CL) 105 MMOL/L 98-107 N CARBON DIOXIDE (test code = CO2) MMOL/L 22-30 GLUCOSE (test code = GLU) MG/DL 74-106 BLOOD UREA NITROGEN (test code = MG/DL 7-17 BUN) GLOMERULAR FILTRATION RATE (test code = GFR) CREATININE (test code = CREAT) MG/DL 0.52-1.04 CALCIUM (test code = CA) MG/DL 8.7-9.7 LIPID PROFILE (CORONARY RISK)2020-05-27 07:42:00 Test Item Value Reference Range Interpretation Comments TRIGLYCERIDES (test code = TRIG) MG/DL CHOLESTEROL (test code = CHOL) MG/DL <200 HDL CHOLESTEROL (test code = HDL) MG/DL 40-59 LIPOPROTEIN LDL (test code = LDL) MG/DL 0-99 [id number] 07:42:00 Test Item Value Reference Range Interpretation Comments MAGNESIUM (test code = MAG) MG/DL 1.6-2.3 BASIC METABOLIC [id number] 07:41:00 Test Item Value Reference Range Interpretation Comments SODIUM (test code = NA) 141 MMOL/L 137-145 N POTASSIUM (test code = K) MMOL/L 3.5-5.1 CHLORIDE (test code = CL) 105 MMOL/L 98-107 N CARBON DIOXIDE (test code = CO2) MMOL/L 22-30 GLUCOSE (test code = GLU) MG/DL 74-106 BLOOD UREA NITROGEN (test code = MG/DL 7-17 BUN) GLOMERULAR FILTRATION RATE (test code = GFR) CREATININE (test code = CREAT) MG/DL 0.52-1.04 CALCIUM (test code = CA) MG/DL 8.7-9.7 LIPID PROFILE (CORONARY RISK)2020-05-27 07:41:00 Test Item Value Reference Range Interpretation Comments TRIGLYCERIDES (test code = TRIG) MG/DL CHOLESTEROL (test code = CHOL) MG/DL <200 HDL CHOLESTEROL (test code = HDL) MG/DL 40-59 LIPOPROTEIN LDL (test code = LDL) MG/DL 0-99 [id number] 07:41:00 Test Item Value Reference Range Interpretation Comments MAGNESIUM (test code = MAG) MG/DL 1.6-2.3 CBC W/AUTO [id number] 07:39:00 Test Item Value Reference Range Interpretation Comments WHITE BLOOD CELL (test code = 5.3 K/MM3 3.8-9.8 N WBC) RED BLOOD CELL (test code = 3.50 M/MM3 3.58-4.97 L RBC) HEMOGLOBIN (test code = HGB) 10.8 G/DL 11.2-14.9 L HEMATOCRIT (test code = HCT) 33.2 % 33.2-43.5 N MEAN CELL VOLUME (test code = 95 fL 80.7-99.1 N MCV) MEAN CELL HGB (test code = MCH) 30.9 pg 27.0-34.1 N MEAN CELL HGB CONCETRATION 32.5 % 32.2-35.7 N (test code = MCHC) RED CELL DISTRIBUTION WIDTH 12.8 % 12.1-15.2 N (test code = RDW) PLATELET COUNT (test code = 143 K/MM3 129-368 N PLT) MEAN PLATELET VOLUME (test code 10.4 fl 7.4-10.4 N = MPV) NEUTROPHIL % (test code = NT%) 49.0 % 43-75 N IMMATURE GRANULOCYTE % (test 0.4 % 0.0-2.0 N code = IG%) LYMPHOCYTE % (test code = LY%) 29.8 % 14-44 N MONOCYTE % (test code = MO%) 17.3 % 4-13 H EOSINOPHIL % (test code = EO%) 2.7 % 0-6 N BASOPHIL % (test code = BA%) 0.8 % 0-2 N NUCLEATED RBC % (test code = 0.0 % 0-1.0 N NRBC%) NEUTROPHIL # (test code = NT#) 2.58 K/mm3 2.0-7.6 N IMMATURE GRANULOCYTE # (test 0.02 x10 3/uL 0-0.03 N code = IG#) LYMPHOCYTE # (test code = LY#) 1.57 K/mm3 1.0-3.8 N MONOCYTE # (test code = MO#) 0.91 K/mm3 0.1-0.8 H EOSINOPHIL # (test code = EO#) 0.14 K/mm3 0.0-0.2 N BASOPHIL # (test code = BA#) 0.04 K/mm3 0.0-0.2 N NUCLEATED RBC # (test code = 0.00 K/mm3 0.0-0.1 N NRBC#) COVID 19 Asymptomatic IH [id number] 06:05:00 Test Item Value Reference Range Interpretation Comments COVID 19 NEGATIVE Negative "Negative resul ts from Asymptomatic IH AG patients with symptom (test code = onset beyondfiv e days, COVNONPUIAG) should be ervin osman as presumptive, andconfirmation with a molecular assay , if necessary forpa tient management may be performed. Nega tive results do notr ule out COVID-19 and sh ould not be used as the sole basisfor treatm ent or patient managem ent decisions, includinginfect ion control decisio ns. Negative result s should beconsidered in the context of a pa tients recent exposure s,history, and the presenc e of clinical signs and symptomsconsist ent with COVID-19.This t est detects both vi able andnon-viable S ARS-CoV and SARS CoV-2. Test performance dep endson the amount of virus (antigen) in the sample." [id number] 13:38:00 Test Item Value Reference Range Interpretation Comments ACT-ISTAT (test code = ACTI) 241 SEC 74-137 H [id number] 13:38:00 Test Item Value Reference Range Interpretation Comments ACT-ISTAT (test code = ACTI) 224 SEC 74-137 H PROTHROMBIN [id number] 10:02:00 Test Item Value Reference Range Interpretation Comments PROTHROMBIN TIME 10.9 SECONDS 9.6-11.6 N PATIENT (test code = PTP) INTERNATIONAL NORMAL 1.0 0.8-1.1 N The INR is to be RATIO (test code = used only for INR) monitoring oral anticoagulantth erap y. INDICATION I NR VALUE ---- ---- ---- -------1. Prophylaxis, de ep venous thrombos is, including hig h risk surgery. 2.0 - 3.0 2. Prophylaxis, de ep venous thrombos is, hip surgery, treatment for d eep venous thrombosis or pulmonary prevention of systemic emboli sm in patients wit h valvular heart disease, atrial fibrillation, tissue heart va lve, or acute myocar dial infarction. 2.0 - 3 .0 3. Mechanical prosthesis hear t valves, recurrent syste jayesh embolism. 3.0 - 4.5 PTT [id number] 10:02:00 Test Item Value Reference Range Interpretation Comments PTT ACTIVATED (test code = APTT) 25.1 SECONDS 22.0-33.0 N BASIC METABOLIC [id number] 09:48:00 Test Item Value Reference Range Interpretation Comments SODIUM (test code = 144 MMOL/L 137-145 N NA) POTASSIUM (test code = 4.4 MMOL/L 3.5-5.1 N K) CHLORIDE (test code = 108 MMOL/L 98-107 H CL) CARBON DIOXIDE (test 27 MMOL/L 22-30 N code = CO2) ANION GAP (test code = 13 MMOL/L 14-24 L GAP) GLUCOSE (test code = 84 MG/DL 74-106 N GLU) BLOOD UREA NITROGEN 20 MG/DL 7-17 H (test code = BUN) GLOMERULAR FILTRATION 49 Report ing units: RATE (test code = GFR) ml/mi n/1.73 m2 (Modified MDRD Formula)Referen ce Range: > or = 6 0 ml/min/1.73 m2 CREATININE (test code 1.10 MG/DL 0.52-1.04 H = CREAT) CALCIUM (test code = 9.6 MG/DL 8.4-10.2 N CA) LIPID PROFILE (CORONARY RISK)2019-03-20 09:48:00 Test Item Value Reference Range Interpretation Comments TRIGLYCERIDES (test 127 MG/DL TRIGLYCE RIDES code = TRIG) REFERENCE RANGE:Normal: < 150 mg/dLBorderline High: 150-199 mg/dLHi gh: 200-499 mg/dLVe ry High: >=500 mg/ dL CHOLESTEROL (test code 101 MG/DL <200 = CHOL) HDL CHOLESTEROL (test 26 MG/DL 40-59 L code = HDL) LIPOPROTEIN LDL (test 68 MG/DL 0-99 N code = LDL) OPTIMAL........ .<100 mg/dLNEAR OPTIMAL/ABOVE OPTIMAL........ .100-12 9 mg/dL BORDERLINE HIGH.........13 0-159 mg/dL HIGH.........16 0-189 mg/dL VERY HIGH...... ...>/= 190 mg/dL [id number] 09:48:00 Test Item Value Reference Range Interpretation Comments MAGNESIUM (test code = MAG) 1.8 MG/DL 1.6-2.3 N CBC W/AUTO [id number] 09:23:00 Test Item Value Reference Range Interpretation Comments WHITE BLOOD CELL (test code = 4.7 K/MM3 3.8-9.8 N WBC) RED BLOOD CELL (test code = 3.48 M/MM3 3.58-4.97 L RBC) HEMOGLOBIN (test code = HGB) 10.4 G/DL 11.2-14.9 L HEMATOCRIT (test code = HCT) 31.7 % 33.2-43.5 L MEAN CELL VOLUME (test code = 91 fL 80.7-99.1 N MCV) MEAN CELL HGB (test code = MCH) 29.9 pg 27.0-34.1 N MEAN CELL HGB CONCETRATION 32.8 % 32.2-35.7 N (test code = MCHC) RED CELL DISTRIBUTION WIDTH 13.1 % 12.1-15.2 N (test code = RDW) PLATELET COUNT (test code = 173 K/MM3 129-368 N PLT) MEAN PLATELET VOLUME (test code 10.1 fl 7.4-10.4 N = MPV) NEUTROPHIL % (test code = NT%) 53.9 % 43-75 N IMMATURE GRANULOCYTE % (test 0.2 % 0.0-2.0 N code = IG%) LYMPHOCYTE % (test code = LY%) 26.8 % 14-44 N MONOCYTE % (test code = MO%) 17.2 % 4-13 H EOSINOPHIL % (test code = EO%) 1.5 % 0-6 N BASOPHIL % (test code = BA%) 0.4 % 0-2 N NUCLEATED RBC % (test code = 0.0 % 0-1.0 N NRBC%) NEUTROPHIL # (test code = NT#) 2.54 K/mm3 2.0-7.6 N IMMATURE GRANULOCYTE # (test 0.01 x10 3/uL 0-0.03 N code = IG#) LYMPHOCYTE # (test code = LY#) 1.26 K/mm3 1.0-3.8 N MONOCYTE # (test code = MO#) 0.81 K/mm3 0.1-0.8 H EOSINOPHIL # (test code = EO#) 0.07 K/mm3 0.0-0.2 N BASOPHIL # (test code = BA#) 0.02 K/mm3 0.0-0.2 N NUCLEATED RBC # (test code = 0.00 K/mm3 0.0-0.1 N NRBC#) [id number] 12:09:00 Test Item Value Reference Range Interpretation Comments ACT-ISTAT (test code = ACTI) 213 SEC 74-137 H LIPID PROFILE (CORONARY RISK)2019-02-06 08:02:00 Test Item Value Reference Range Interpretation Comments TRIGLYCERIDES (test 151 MG/DL TRIGLYCE RIDES code = TRIG) REFERENCE RANGE:Normal: < 150 mg/dLBorderline High: 150-199 mg/dLHi gh: 200-499 mg/dLVe ry High: >=500 mg/ dL CHOLESTEROL (test code 146 MG/DL <200 = CHOL) HDL CHOLESTEROL (test 34 MG/DL 40-59 L code = HDL) LIPOPROTEIN LDL (test 106 MG/DL 0-99 H code = LDL) OPTIMAL........ .<100 mg/dLNEAR OPTIMAL/ABOVE OPTIMAL........ .100-12 9 mg/dL BORDERLINE HIGH.........13 0-159 mg/dL HIGH.........16 0-189 mg/dL VERY HIGH...... ...>/= 190 mg/dL BASIC METABOLIC [id number] 07:52:00 Test Item Value Reference Range Interpretation Comments SODIUM (test code = 143 MMOL/L 137-145 N NA) POTASSIUM (test code = 4.7 MMOL/L 3.5-5.1 N K) CHLORIDE (test code = 106 MMOL/L 98-107 N CL) CARBON DIOXIDE (test 27 MMOL/L 22-30 N code = CO2) GLUCOSE (test code = 191 MG/DL 74-106 H GLU) BLOOD UREA NITROGEN 24 MG/DL 7-17 H (test code = BUN) GLOMERULAR FILTRATION 40 Report ing units: RATE (test code = GFR) ml/mi n/1.73 m2 (Modified MDRD Formula)Referen ce Range: > or = 6 0 ml/min/1.73 m2 CREATININE (test code 1.30 MG/DL 0.52-1.04 H = CREAT) CALCIUM (test code = 9.4 MG/DL 8.4-10.2 N CA) [id number] 07:52:00 Test Item Value Reference Range Interpretation Comments MAGNESIUM (test code = MAG) 1.7 MG/DL 1.6-2.3 N LIPID PROFILE (CORONARY RISK)2019-02-06 07:51:00 Test Item Value Reference Range Interpretation Comments TRIGLYCERIDES (test 151 MG/DL TRIGLYCE RIDES code = TRIG) REFERENCE RANGE:Normal: < 150 mg/dLBorderline High: 150-199 mg/dLHi gh: 200-499 mg/dLVe ry High: >=500 mg/ dL CHOLESTEROL (test code 146 MG/DL <200 = CHOL) HDL CHOLESTEROL (test 34 MG/DL 40-59 L code = HDL) LIPOPROTEIN LDL (test MG/DL 0-99 code = LDL) PROTHROMBIN [id number] 07:46:00 Test Item Value Reference Range Interpretation Comments PROTHROMBIN TIME 10.3 SECONDS 9.6-11.6 N PATIENT (test code = PTP) INTERNATIONAL NORMAL 1.0 0.8-1.1 N The INR is to be RATIO (test code = used only for INR) monitoring oral anticoagulantth erap y. INDICATION I NR VALUE ---- ---- ---- -------1. Prophylaxis, de ep venous thrombos is, including hig h risk surgery. 2.0 - 3.0 2. Prophylaxis, de ep venous thrombos is, hip surgery, treatment for d eep venous thrombosis or pulmonary prevention of systemic emboli sm in patients wit h valvular heart disease, atrial fibrillation, tissue heart va lve, or acute myocar dial infarction. 2.0 - 3 .0 3. Mechanical prosthesis hear t valves, recurrent syste jayesh embolism. 3.0 - 4.5 Comments to Ice Maker: WILL BRING TO THE LABPTT [id number] 07:46:00 Test Item Value Reference Range Interpretation Comments PTT ACTIVATED (test code = APTT) 25.1 SECONDS 22.0-33.0 N Comments to Ice Maker: WILL BRING TO THE LABCBC W/AUTO [id number] 07:27:00 Test Item Value Reference Range Interpretation Comments WHITE BLOOD CELL (test code = 5.2 K/MM3 3.8-9.8 N WBC) RED BLOOD CELL (test code = 3.69 M/MM3 3.58-4.97 N RBC) HEMOGLOBIN (test code = HGB) 11.0 G/DL 11.2-14.9 L HEMATOCRIT (test code = HCT) 33.1 % 33.2-43.5 L MEAN CELL VOLUME (test code = 90 fL 80.7-99.1 N MCV) MEAN CELL HGB (test code = MCH) 29.8 pg 27.0-34.1 N MEAN CELL HGB CONCETRATION 33.2 % 32.2-35.7 N (test code = MCHC) RED CELL DISTRIBUTION WIDTH 12.1 % 12.1-15.2 N (test code = RDW) PLATELET COUNT (test code = 150 K/MM3 129-368 N PLT) MEAN PLATELET VOLUME (test code 10.3 fl 7.4-10.4 N = MPV) NEUTROPHIL % (test code = NT%) 46.6 % 43-75 N IMMATURE GRANULOCYTE % (test 0.4 % 0.0-2.0 N code = IG%) LYMPHOCYTE % (test code = LY%) 37.0 % 14-44 N MONOCYTE % (test code = MO%) 12.1 % 4-13 N EOSINOPHIL % (test code = EO%) 3.3 % 0-6 N BASOPHIL % (test code = BA%) 0.6 % 0-2 N NUCLEATED RBC % (test code = 0.0 % 0-1.0 N NRBC%) NEUTROPHIL # (test code = NT#) 2.44 K/mm3 2.0-7.6 N IMMATURE GRANULOCYTE # (test 0.02 x10 3/uL 0-0.03 N code = IG#) LYMPHOCYTE # (test code = LY#) 1.93 K/mm3 1.0-3.8 N MONOCYTE # (test code = MO#) 0.63 K/mm3 0.1-0.8 N EOSINOPHIL # (test code = EO#) 0.17 K/mm3 0.0-0.2 N BASOPHIL # (test code = BA#) 0.03 K/mm3 0.0-0.2 N NUCLEATED RBC # (test code = 0.00 K/mm3 0.0-0.1 N NRBC#)
--- NOTE | 2021-12-27 13:12 | RAD REPORT ---
EXAM DESCRIPTION: RAD - Chest Single View - 12/27/2021 12:59 pm CLINICAL HISTORY: weakness Chest pain. COMPARISON: Chest Single View dated 10/14/2019; Chest Single View dated 10/10/2019; Chest Single View da osman 05/09/2018; CHEST SINGLE VIEW dated 07/11/2014 FINDINGS: Portable technique limits examination quality. The lungs are emphysematous. Mild right apical pleural thickening is present. Haziness in the left yanet ng base laterally is a possibility related to superimposition of soft tissue. The heart is normal in size. Sternotomy wires.
[2021-12-27 13:21] LABS: Absolute Lymphocytes (CBC) 0.8 K/uL (0.7-4.9); Hematocrit 22.9 % (36.0-45.0); Lymphocytes % 15.1 % (15.3-44.8); MPV 8.5 fL (7.6-11.3); RBC Red Blood Cell Count 2.34 M/uL (3.86-4.86)
--- NOTE | 2021-12-27 13:55 | RAD REPORT ---
EXAM DESCRIPTION: CT - Head Brain Wo Cont - 12/27/2021 1:46 pm CLINICAL HISTORY: HEADACHE Headache, drowsiness COMPARISON: No comparisons TECHNIQUE: All CT scans are performed using dose optimization technique as appropriate and may inclu de automated exposure control or mA/KV adjustment according to patient size. FINDINGS: No intracranial hemorrhage, hydrocephalus or extra-axial fluid collection.Moderate general ized brain atrophy is present with mild periventricular and deep white matter chronic microvascular i schemic changes.No areas of brain edema or evidence of midline shift. 15 mm mucous retention cyst versus polyp right maxillary antrum. The paranasal sinuses and mastoids a re otherwise clear. The calvarium is intact. IMPRESSION: No acute intracranial abnormality.
--- NOTE | 2021-12-27 13:57 | RAD REPORT ---
EXAM DESCRIPTION: CT - Soft Tissue Neck Wo Contr CLINICAL HISTORY: SWELLING COMPARISON: No comparisons TECHNIQUE All CT scans are performed using dose optimization technique as appropriate and may includ e automated exposure control or mA/KV adjustment according to patient size. FINDINGS: A limited noncontrast study was submitted. No neck mass is identified. No significant bulky adenopathy. Salivary glands appear symmetric. Normal size thyroid gland. Symmetric vocal cords. Significant spondylosis is noted at C3-4 and C5-6. IMPRESSION: Limited noncontrast study without acute abnormality demonstrated within the neck. Significant central herniation is suspected at C3-4. Nonemergent MRI cervical spine followup would be advised.
--- NOTE | 2021-12-27 14:01 | RAD REPORT ---
EXAM DESCRIPTION: CT - Chest Abd Pelvis Wo Con - 12/27/2021 1:46 pm CLINICAL HISTORY: Chest and abdomen pain. neck pain COMPARISON: Thorax Wo Con dated 10/13/2019 TECHNIQUE: A limited noncontrast study was performed. All CT scans are performed using dose optimization technique as appropriate and may include automated exposure control or mA/KV adjustment according to patient size. FINDINGS: Prominent COPD is present.Linear scarring is present in the right upper lobe laterally. Rosenbaum btle ground-glass opacity bilaterally could be mild interstitial edema.No pleural or pericardial effu radha.Cardiac size is mildly enlarged.No intrathoracic adenopathy. Cholecystectomy. The liver, spleen, pancreas, adrenal glands and kidneys are unremarkable for noncont rast imaging. Mild thickening of the distal stomach/ proximal duodenum evident. A large right paramidline ventral hernia is present containing colon, small intestine appendix. Defec t in the fascia measures 10 cm. Normal appendix. No pathologic lymphadenopathy in the abdomen or pel vis. Moderate atherosclerosis of the vasculature. Chronic deformity of the L3 vertebral body is present resulting spinal canal stenosis. IMPRESSION: No acute abnormality is seen. Prominent COPD with probable mild interstitial edema. Large right paramidline ventral hernia. No evidence of hernia incarceration. Spinal canal stenosis at L3.
[2021-12-27 14:02] LABS: Platelet Estimate ADEQ
[2021-12-27 14:03] LABS: Blood Morphology Comment NOTED (NOT SEEN); Polychromasia SLIGHT
[2021-12-27 15:22] LABS: Urine Blood Trace-intact (Negative); Urine Glucose 2+ (Negative); Urine Protein Negative (Negative); Urine Specific Gravity 1.015 (1.005-1.030); Urine pH 5.5 (5.0-7.0)
--- NOTE | 2021-12-27 15:51 | ER ---
Nurse's Notes [facility] Name: Alyson Ibarra Age: 76 yrs Sex: Female : 1945 Arrival Date: 12/27/2021 Time: 11:24 Bed 7 Private MD: Diagnosis: Weakness;Anemia, unspecified Presentation: 12/27 11:31 Chief complaint: Patient states: Weakness, fatigued easily, cough, no appetite, unable ll1 to walk well for 1 month. No fevers. Coronavirus screen: Vaccine status: Patient reports being unvaccinated. Client denies travel out of the [place] in the last 14 days. congestion, fatigue, muscle pain, shortness of breath, sore throat, Client presents with at least one sign or symptom that may indicate coronavirus-19. Standard/surgical mask placed on the client. Ebola Screen: Patient denies travel to an Ebola-affected area in the 21 days before illness onset. No acute neurological deficit is noted. Initial Sepsis Screen: Does the patient meet any 2 criteria? No. Patient's initial sepsis screen is negative. Does the patient have a suspected source of infection? Yes: Productive cough/pneumonia. Risk Assessment: Do you want to hurt yourself or someone else? Patient reports no desire to harm self or others. Onset of symptoms was November 29, 2021. 11:31 Method Of Arrival: Wheelchair ll1 11:31 Acuity: LETY 3 ll1 Triage Assessment: 11:34 The onset of the patients symptoms was more than six hours ago. General: Appears ll1 uncomfortable, ill, Behavior is cooperative, appropriate for age. Pain: Complains of pain in all over Quality of pain is described as aching. EENT: Reports pain when swallowing. Neuro: Reports weakness. Cardiovascular: No deficits noted. Respiratory: Reports cough that is. Musculoskeletal: Reports weakness in generalized. Stroke Activation: Symptom onset > 6 hours Physician: Stroke Attending; Name: ; Notified At: ; Arrived At: Physician: Chief Stroke Resident; Name: ; Notified At: ; Arrived At: Physician: Stroke Resident; Name: ; Notified At: ; Arrived At: Physician: ED Attending; Name: ; Notified At: ; Arrived At: Physician: ED Resident; Name: ; Notified At: ; Arrived At: Historical: - Allergies: 11:33 Cipro; ll1 - Home Meds: 21:15 aspirin 81 mg Oral chew 1 tab once daily [Active]; atorvastatin 40 mg Oral tab 1 tab lp1 once daily [Active]; clopidogrel 75 mg Oral tab 1 tab once daily [Active]; diphenoxylate-atropine 2.5-0.025 mg Oral tab 1 tabs 2 times per day [Active]; furosemide 40 mg Oral tab 1.5 tabs once daily [Active]; gabapentin 100 mg Oral cap 3 caps twice daily [Active]; Lantus Sub-Q [Active]; levocetirizine 5 mg Oral tab 1 tab once daily [Active]; losartan 25 mg Oral tab 1 tab once daily [Active]; metoprolol succinate 50 mg Oral Tb24 1 tab once daily [Active]; Albuterol Inhl [Active]; - PMHx: 11:33 COPD; Hyperlipidemia; Hypertension; Diabetes - IDDM; CHF; CAD; Myocardial infarction; ll1 neuropathy; - PSHx: 11:33 heart stents; ll1 - Immunization history:: Client reports having NOT received the Covid vaccine. Flu vaccine is not up to date. - Social history:: Smoking status: Patient/guardian denies using tobacco, the patient reports quitting approximately 7 years ago. Screenin:57 Abuse screen: Denies threats or abuse. Nutritional screening: No deficits noted. vg1 Tuberculosis screening: No symptoms or risk factors identified. Fall Risk No fall in past 12 months (0 pts). No secondary diagnosis (0 pts). IV access (20 points). Ambulatory Aid- Crutches/Cane/Walker (15 pts). Gait- Normal/Bed Rest/Wheelchair (0 pts) Mental Status- Oriented to own ability (0 pts). Total Cast Fall Scale indicates Low Risk Score (25-44 pts). Fall prevention measures have been instituted. Side Rails Up X 2 Placed close to Nursing Station Family Present and informed to notify staff if they need to leave bedside. Assessment: 12:30 General: Appears in no apparent distress. uncomfortable, Behavior is calm, cooperative. vg1 Pain: Denies pain. Neuro: Level of Consciousness is awake, alert, obeys commands, Oriented to person, place, time, situation. Cardiovascular: Patient's skin is warm and dry. Respiratory: Airway is patent Respiratory effort is even, unlabored, Respiratory pattern is regular. GI: Patient currently denies diarrhea, nausea, vomiting. : No signs and/or symptoms were reported regarding the genitourinary system. EENT: Lid(s) pale. Derm: Skin is pale. Musculoskeletal: Circulation, motion, and sensation intact. 13:30 Reassessment: Physician notified of pt H\T\H. vg1 13:58 Reassessment: Patient appears in no apparent distress at this time. No changes from ww previously documented assessment. Patient and/or family updated on plan of care and expected duration. Pain level reassessed. Patient is alert, oriented x 3, equal unlabored respirations, skin warm/dry/pink. 15:00 Reassessment: Patient appears in no apparent distress at this time. No changes from vg1 previously documented assessment. Patient and/or family updated on plan of care and expected duration. Pain level reassessed. Patient is alert, oriented x 3, equal unlabored respirations, skin warm/dry/pink. 16:00 Reassessment: Patient appears in no apparent distress at this time. No changes from vg1 previously documented assessment. Patient and/or family updated on plan of care and expected duration. Pain level reassessed. Patient is alert, oriented x 3, equal unlabored respirations, skin warm/dry/pink. 17:00 Reassessment: Patient appears in no apparent distress at this time. No changes from vg1 previously documented assessment. Patient and/or family updated on plan of care and expected duration. Pain level reassessed. Patient is alert, oriented x 3, equal unlabored respirations, skin warm/dry/pink. 18:00 Reassessment: Patient appears in no apparent distress at this time. No changes from vg1 previously documented assessment. Patient and/or family updated on plan of care and expected duration. Pain level reassessed. Patient is alert, oriented x 3, equal unlabored respirations, skin warm/dry/pink. 18:20 Reassessment: First unit of blood. Please refer to Transfusion Record sheet for vitals. vg1 19:10 Reassessment: Transfer of blood transfusion completed with LINO Holman. lp1 19:10 Reassessment: Patent and family member aware of pending transfer to floor. General: lp1 Appears in no apparent distress. Behavior is calm, cooperative. Neuro: Level of Consciousness is awake, alert, obeys commands. Respiratory: Respiratory effort is even, unlabored. Derm: Skin is intact, is thin, Skin is dry, Skin is pale. 20:10 Reassessment: Patient completed unit of PRBC at this time; See Transfusion flowsheet lp1 for vitals. Vital Signs: 11:31 BP 125 / 71; Pulse 108; Resp 18; Temp 97.0; Pulse Ox 98% ; Height 5 ft. 4 in. (162.56 ll1 cm); Pain 10/10; 12:00 BP 120 / 58; Pulse 82; Resp 16; Pulse Ox 99% ; vg1 14:00 Pulse 106; Resp 16; Pulse Ox 92% on R/A; kj1 15:00 BP 120 / 44; Pulse 112; Resp 14; Pulse Ox 98% on R/A; vg1 15:30 BP 111 / 53; Pulse 113; Resp 20; Pulse Ox 100% on R/A; vg1 16:00 BP 119 / 91; Pulse 110; Resp 15; Pulse Ox 100% on R/A; vg1 16:30 BP 118 / 59; Pulse 82; Resp 15; Pulse Ox 100% on R/A; vg1 17:00 BP 113 / 45; Pulse 98; Resp 12; Pulse Ox 100% ; vg1 18:21 BP 124 / 54; Pulse 96; Resp 16; Pulse Ox 98% on R/A; ww 18:40 Weight 89.36 kg; vg1 21:00 BP 116 / 55; Pulse 94; Resp 14; Pulse Ox 100% on R/A; lp1 18:40 Body Mass Index 33.81 (89.36 kg, 162.56 cm) vg1 ED Course: 11:24 Patient arrived in ED. am2 11:25 Urban Hdez MD is Attending Physician. kdr 11:33 Triage completed. ll1 11:35 Arm band placed on Patient placed in an exam room, on a stretcher. ll1 12:40 Missed attempt(s): 22 gauge in right antecubital area. vg1 12:41 Manda Montero, RN is Primary Nurse. vg1 12:43 Missed attempt(s): 22 gauge in left antecubital area. vg1 12:57 Patient has correct armband on for positive identification. Placed in gown. Bed in low vg1 position. Call light in reach. Side rails up X2. Adult w/ patient. 12:57 monitor technician on. Pulse ox on. NIBP on. vg1 12:57 No provider procedures requiring assistance completed. vg1 13:01 XRAY Chest (1 view) In Process Unspecified. EDMS 13:45 Missed attempt(s): 20 gauge in left wrist. forearm. [address] gauge. kj1 13:48 CT Head Brain wo Cont In Process Unspecified. EDMS 13:48 Chest Abd Pelvis Wo Con In Process Unspecified. EDMS 13:48 Soft Tissue Neck Wo Contr In Process Unspecified. EDMS 15:50 Melvin Worrell is Hospitalizing Provider. kdr 16:27 Assisted provider with central line placement. Set up central line tray. Triple lumen vg1 line placed in right femoral. Line placed by Jarrod ASHBY Dressed with Tegaderm, Blood was collected. Patient tolerated well. Was handwashing/sanitizing done immediately prior to procedure? Yes. Was patient positioned to in a way to prevent air embolism? Yes. Was procedure site sterilized? Yes, with Was the site allowed to dry? Yes. Was local anesthetic and/or sedation utilized? Yes. During the procedure, did the Practitioner(s) maintain a sterile field? Yes. Were unused ports clamped during insertion? Yes. Was a 2nd qualified MD obtained after 3 unsuccessful insertion attempts? Yes. Was blood aspirated from each lumen? Yes. After the procedure, did the Practitioner(s) clean the site and apply a sterile dressing? Yes. 19:07 Primary Nurse role handed off by Manda Montero RN cs9 19:18 Elizabeth Mcdowell, LINO is Primary Nurse. lp1 21:14 Patient admitted, IV remains in place. lp1 Administered Medications: 13:31 Not Given (NO IV accesss): NS 0.9% 250 ml IV at bolus once vg1 16:45 Drug: NS 0.9% 500 ml Route: IV; Rate: bolus; Site: right femoral; vg1 17:03 Drug: Insulin Regular Human 12 units {Co-Signature: little (Madison Bradford RN).} Route: IVP; vg1 Site: right femoral; Outcome: 15:50 Decision to Hospitalize by Provider. kdr 19:20 Condition: stable lp1 19:20 Instructed on the need for admit. 19:45 Admitted to Tele room 403, with chart, Report called to LINO Hughes lp1 21:18 Patient left the ED. lp1 Signatures: Dispatcher [employer] EDMS Urban Hdez MD MD kdr Pena, Laura RN RN lp1 Aruna Goff Kandis kj1 Manda Montero RN RN vg1 Anna Herron RN RN ll1 Rebekah Harvey Madison Mahajan RN RN ww Madison fitch Corrections: (The following items were deleted from the chart) 16:32 16:00 BP 119 / 91; Pulse 15bpm; Pulse Ox 100% RA; vg1 vg1 18:43 18:20 Reassessment: First unit of blood vg1 vg1
--- NOTE | 2021-12-27 15:51 | EDPHYS ---
Physician Documentation [facility] Name: Alyson Ibarra Age: 76 yrs Sex: Female : 1945 Arrival Date: 12/27/2021 Time: 11:24 Bed 7 Private MD: ED Physician Urban Hdez HPI: 12/27 18:40 This 76 yrs old Female presents to ER via Wheelchair with complaints of neck kdr mass, General Weakness, Trouble Walking, Headache. 18:41 Patient presents with generalized weakness and fatigue. She indicated that over the kdr last month she become increasingly more weak. Last week or so she has been bedbound and unable to bear weight. She is also had poor nutrition and hydration. She has not had anything like this before. She is awake alert and appropriate. She does not appear acutely ill or toxic on initial presentation. Onset: The symptoms/episode began/occurred gradually, 1 month(s) ago. Severity of symptoms: At their worst the symptoms were mild moderate just prior to arrival, in the emergency department the symptoms are unchanged. The patient has not experienced similar symptoms in the past. The patient has not recently seen a physician. Historical: - Allergies: 11:33 Cipro; ll1 - Home Meds: 21:15 aspirin 81 mg Oral chew 1 tab once daily [Active]; atorvastatin 40 mg Oral tab 1 tab lp1 once daily [Active]; clopidogrel 75 mg Oral tab 1 tab once daily [Active]; diphenoxylate-atropine 2.5-0.025 mg Oral tab 1 tabs 2 times per day [Active]; furosemide 40 mg Oral tab 1.5 tabs once daily [Active]; gabapentin 100 mg Oral cap 3 caps twice daily [Active]; Lantus Sub-Q [Active]; levocetirizine 5 mg Oral tab 1 tab once daily [Active]; losartan 25 mg Oral tab 1 tab once daily [Active]; metoprolol succinate 50 mg Oral Tb24 1 tab once daily [Active]; Albuterol Inhl [Active]; - PMHx: 11:33 COPD; Hyperlipidemia; Hypertension; Diabetes - IDDM; CHF; CAD; Myocardial infarction; ll1 neuropathy; - PSHx: 11:33 heart stents; ll1 - Immunization history:: Client reports having NOT received the Covid vaccine. Flu vaccine is not up to date. - Social history:: Smoking status: Patient/guardian denies using tobacco, the patient reports quitting approximately 7 years ago. ROS: 18:41 Constitutional: Negative for fever, chills, and weight loss, Eyes: Negative for injury, kdr pain, redness, and discharge, ENT: Negative for injury, pain, and discharge, Neck: Negative for injury, pain, and swelling, Respiratory: Negative for shortness of breath, cough, wheezing, and pleuritic chest pain, Abdomen/GI: Negative for abdominal pain, nausea, vomiting, diarrhea, and constipation, Back: Negative for injury and pain, : Negative for injury, bleeding, discharge, and swelling, MS/Extremity: Negative for injury and deformity, Skin: Negative for injury, rash, and discoloration, Psych: Negative for depression, anxiety, suicide ideation, homicidal ideation, and hallucinations, Allergy/Immunology: Negative for hives, rash, and allergies, Endocrine: Negative for neck swelling, polydipsia, polyuria, polyphagia, and marked weight changes, Hematologic/Lymphatic: Negative for swollen nodes, abnormal bleeding, and unusual bruising. 18:41 Cardiovascular: Positive for palpitations. 18:41 Neuro: Positive for weakness, Negative for altered mental status, numbness, seizure activity, speech changes, syncope, near syncope, tinnitus, tremor, visual changes. Exam: 18:41 Constitutional: This is a well developed, well nourished patient who is awake, alert, kdr and in no acute distress. Head/Face: Normocephalic, atraumatic. Eyes: Pupils equal round and reactive to light, extra-ocular motions intact. Lids and lashes normal. Conjunctiva and sclera are non-icteric and not injected. Cornea within normal limits. Periorbital areas with no swelling, redness, or edema. Neck: Trachea midline, no thyromegaly or masses palpated, and no cervical lymphadenopathy. Supple, full range of motion without nuchal rigidity, or vertebral point tenderness. No Meningismus. Chest/axilla: Normal chest wall appearance and motion. Nontender with no deformity. No lesions are appreciated. Respiratory: Lungs have equal breath sounds bilaterally, clear to auscultation and percussion. No rales, rhonchi or wheezes noted. No increased work of breathing, no retractions or nasal flaring. Abdomen/GI: Soft, non-tender, with normal bowel sounds. No distension or tympany. No guarding or rebound. No evidence of tenderness throughout. Back: No spinal tenderness. No costovertebral tenderness. Full range of motion. Skin: Warm, dry with normal turgor. Normal color with no rashes, no lesions, and no evidence of cellulitis. MS/ Extremity: Pulses equal, no cyanosis. Neurovascular intact. Full, normal range of motion. Neuro: Awake and alert, GCS 15, oriented to person, place, time, and situation. Cranial nerves II-XII grossly intact. Motor strength 5/5 in all extremities. Sensory grossly intact. Cerebellar exam normal. Normal gait. Psych: Awake, alert, with orientation to person, place and time. Behavior, mood, and affect are within normal limits. 18:41 Cardiovascular: Rate: tachycardic, Rhythm: regular, Pulses: no pulse deficits are appreciated, Heart sounds: murmur. Vital Signs: 11:31 BP 125 / 71; Pulse 108; Resp 18; Temp 97.0; Pulse Ox 98% ; Height 5 ft. 4 in. (162.56 ll1 cm); Pain 10/10; 12:00 BP 120 / 58; Pulse 82; Resp 16; Pulse Ox 99% ; vg1 14:00 Pulse 106; Resp 16; Pulse Ox 92% on R/A; kj1 15:00 BP 120 / 44; Pulse 112; Resp 14; Pulse Ox 98% on R/A; vg1 15:30 BP 111 / 53; Pulse 113; Resp 20; Pulse Ox 100% on R/A; vg1 16:00 BP 119 / 91; Pulse 110; Resp 15; Pulse Ox 100% on R/A; vg1 16:30 BP 118 / 59; Pulse 82; Resp 15; Pulse Ox 100% on R/A; vg1 17:00 BP 113 / 45; Pulse 98; Resp 12; Pulse Ox 100% ; vg1 18:21 BP 124 / 54; Pulse 96; Resp 16; Pulse Ox 98% on R/A; ww 18:40 Weight 89.36 kg; vg1 21:00 BP 116 / 55; Pulse 94; Resp 14; Pulse Ox 100% on R/A; lp1 18:40 Body Mass Index 33.81 (89.36 kg, 162.56 cm) vg1 MDM: 15:50 Patient medically screened. kdr 18:41 Data reviewed: vital signs, nurses notes, lab test result(s), radiologic studies. kdr Counseling: I had a detailed discussion with the patient and/or guardian regarding: the historical points, exam findings, and any diagnostic results supporting the discharge/admit diagnosis, lab results, radiology results, the need for further work-up and treatment in the hospital. 12/27 11:58 Order name: Basic Metabolic Panel; Complete Time: 16:27 [facility] 12/27 11:58 Order name: CBC with Diff; Complete Time: 14:25 [facility] 12/27 11:58 Order name: NT PRO-BNP; Complete Time: 16:27 [facility] 12/27 11:58 Order name: Troponin HS; Complete Time: 16:27 [facility] 12/27 13:28 Order name: Manual Differential; Complete Time: 14:25 [facility] 12/27 15:22 Order name: Urine Dipstick-Ancillary; Complete Time: 15:25 [facility] 12/27 11:58 Order name: XRAY Chest (1 view); Complete Time: 14:25 [facility] 12/27 11:58 Order name: CT Head Brain wo Cont; Complete Time: 14:25 [facility] 12/27 15:47 Order name: PRBC [facility] 12/27 15:50 Order name: ABO/RH typing [facility] 12/27 15:50 Order name: Antibody Screen [facility] 12/27 16:54 Order name: SARS-COV-2 RT PCR (Document "Date of Onset" if Symptomatic) [facility] 12/27 17:07 Order name: Glucose, Ancillary Testing [facility] 12/27 20:48 Order name: Glucose, Ancillary Testing [facility] 12/27 11:58 Order name: EKG; Complete Time: 11:58 [facility] 12/27 11:58 Order name: Cardiac monitoring; Complete Time: 12:53 [facility] 12/27 11:58 Order name: EKG - Nurse/Tech; Complete Time: 12:53 [facility] 12/27 11:58 Order name: IV Saline Lock; Complete Time: 17:12 [facility] 12/27 11:58 Order name: Labs collected and sent; Complete Time: 15:09 [facility] 12/27 11:58 Order name: O2 Per Protocol; Complete Time: 12:53 [facility] 12/27 11:58 Order name: O2 Sat Monitoring; Complete Time: 12:53 [facility] 12/27 13:33 Order name: Chest Abd Pelvis Wo Con; Complete Time: 14:25 EDMS 12/27 13:33 Order name: Soft Tissue Neck Wo Contr; Complete Time: 14:25 EDMS Administered Medications: 13:31 Not Given (NO IV accesss): NS 0.9% 250 ml IV at bolus once vg1 16:45 Drug: NS 0.9% 500 ml Route: IV; Rate: bolus; Site: right femoral; vg1 17:03 Drug: Insulin Regular Human 12 units {Co-Signature: ww (Madison Bradford RN).} Route: IVP; vg1 Site: right femoral; Disposition Summary: 12/27/21 15:50 Hospitalization Ordered Hospitalization Status: Inpatient Admission kdr Provider: Melvin Worrell Location: Telemetry/MedSurg (Inpatient) kdr Condition: Fair kdr Problem: new kdr Symptoms: have improved kdr Bed/Room Type: Standard kdr Room Assignment: 403(12/27/21 18:33) em1 Diagnosis - Weakness kdr - Anemia, unspecified kdr Forms: - Medication Reconciliation Form kdr - SBAR form kdr Signatures: Dispatcher [employer] EDMS Urban Hdez MD MD kdr Grzegorz Asencio em1 Elizabeth Mcdowell RN RN lp1 Manda Montero, RN RN vg1 Anna Herron, RN RN ll1 Madison fitch Corrections: (The following items were deleted from the chart) 13:33 11:59 Soft Tissue Neck W/Contr+CT.RAD.BRZ ordered. EDMS EDMS 13:33 13:04 Chest Abdomen Pelvis W Con+CT.RAD.BRZ ordered. EDMS EDMS 18:33 15:50 kdr em1
[2021-12-27] MEDS ORDERED: NA CHLORIDE 0.9% 500 ML ONE ×2 (15:53→22:07)
[2021-12-27] MEDS ORDERED: LIDOCAINE 1% 20 ML MDV ONE (15:54)
[2021-12-27 16:25] LABS: Troponin High Sensitivity 9.5 pg/mL (<58.9)
[2021-12-27] MEDS ORDERED: NA CHLORIDE 0.9% 250 ML ONE (16:49)
[2021-12-27] MEDS ORDERED: INSULIN -REGULAR HUMAN 50 UNIT/0.5 ML ML ONE (17:02)
--- NOTE | 2021-12-27 17:53 | P.HP ---
Certification for Inpatient Patient admitted to: Observation With expected LOS: <2 Midnights Practitioner: I am a practitioner with admitting privileges, knowledge of patient current condition, hospital course, and medical plan of care. Services: Services provided to patient in accordance with Admission requirements found in Title 42 Section 412.3 of the Code of Federal Regulations Patient History Date of Service: 12/27/21 Reason for admission: Generalized weakness History of Present Illness: 76-year-old woman with a history of insulin-dependent diabetes, hypertension, chronic diastolic heart failure, history of ID, prior history of anemia, status post colonoscopy EGD and capsule endoscopy, etiology of anemia still unknown presented to the emergency department with a complaint of generalized weakness of 1 month duration. Patient reported progressive weakness over the past 1 week, up to the point she is not able to ambulate. She reports palpitation of 1 day duration. She denied any nausea vomiting or diarrhea. She denied any melena or hematochezia or hematemesis. Blood work done in the emergency department showed anemia with hemoglobin of 7.6. Patient was tachycardic in the ED. EKG demonstrates a sinus rhythm with diffuse T wave inversions. Patient was complaining of pain and swelling in the neck area. CT soft tissue of the neck unremarkable, CT chest abdomen pelvis demonstrated groundglass opacity in the lungs suggestive of interstitial edema and features suggestive of prominent COPD. Glucose markedly elevated to 500s. Patient weakness suspected to be related to CHF and symptomatic anemia. She is hospitalized for further management. Allergies ciprofloxacin [From Cipro] Allergy (Intermediate, Verified 10/10/19 22:18) Itching Home Medications: Aspirin 81 mg PO DAILY 05/09/18 Atorvastatin Calcium [Lipitor] 40 mg PO BEDTIME 05/09/18 Furosemide [Lasix] 40 mg PO DAILY 05/09/18 Gabapentin [Neurontin*] 100 mg PO DAILY 05/09/18 Insulin Glargine Human [Lantus*] 52 units SQ BID 05/09/18 Metoprolol Succinate [Toprol Xl*] 50 mg PO DAILY 05/09/18 Biotin 3,000 mcg PO DAILY 10/10/19 Clopidogrel Bisulfate [Plavix*] 75 mg PO DAILY 10/10/19 Isosorbide Mononitrate [Isosorbide Mononitrate ER] 30 mg PO DAILY 10/10/19 Potassium Gluconate [Potassium] 99 mg PO DAILY 10/10/19 Tiotropium Yoder [Spiriva] 1 cap IH DAILY 10/10/19 Vitamin E 400 unit PO DAILY 10/10/19 Amox/Clavulanate [Augmentin 500-125 mg Tab*] 500 mg PO BID #10 tab 10/15/19 Temazepam [Restoril*] 15 mg PO BEDTIME PRN PRN cap 10/15/19 - Past Medical/Surgical History Diabetic: Yes -: Hypertension -: CHF -: IDDM -: neuropathy -: hyperlipidemia -: CAD -: ID -: COPD -: cardiac catheterization -: Coronary artery bypass grafting -: Bilateral knee surgery - Family History Mother -: Diabetes Father -: Diabetes - Social History Smoking Status: Never smoker Alcohol use: No CD- Drugs: No Caffeine use: Yes Review of Systems Other: She denied any cough or fever. She endorsed shortness of breath. Except as documented, all other systems reviewed and negative. Physical Examination - Physical Exam General: Alert, In no apparent distress, Oriented x3 HEENT: Atraumatic, PERRLA, Mucous membr. moist/pink, Sclerae nonicteric Neck: Supple, JVD not distended Respiratory: Clear to auscultation bilaterally, Normal air movement Cardiovascular: No edema, Normal S1 S2, Other (Regular rhythm, tachycardia) Capillary refill: <2 Seconds Gastrointestinal: Normal bowel sounds, Soft and benign, Non-distended, No tenderness, Other (Right sided ventral hernia) Musculoskeletal: No swelling, No tenderness Integumentary: No rashes, No erythema, No cyanosis Neurological: Normal speech, Normal strength at 5/5 x4 extr, Cranial nerves 3-12 intact Lymphatics: No axilla or inguinal lymphadenopathy - Studies Laboratory Data (last 24 hrs) 12/27/21 15:26: Sodium 135 L, Potassium 5.0, BUN 26 H, Creatinine 1.74 H, Glucose 563 H* 12/27/21 12:10: WBC 5.00, Hgb 7.6 L, Hct 22.9 L, Plt Count 143 L Assessment and Plan - Problems (Diagnosis) (1) Generalized weakness Current Visit: Yes Status: Acute (2) Symptomatic anemia Current Visit: Yes Status: Acute (3) Acute on chronic diastolic heart failure Current Visit: Yes Status: Acute (4) Uncontrolled type 2 diabetes mellitus with hyperglycemia Current Visit: Yes Status: Acute (5) Coronary artery disease Current Visit: No Status: Chronic Qualifiers: Coronary Disease-Associated Artery/Lesion type: [place] artery (6) Hypertension Current Visit: No Status: Chronic - Plan Place patient under observation. Trend troponin given abnormal EKG Transfuse 1 unit PRBCs to keep hemoglobin greater than 8. Obtain echocardiogram. Aggressive blood sugar control-c start home dose Lantus insulin and titrate, insulin sliding scale. Outpatient GI follow-up. Monitor hemoglobin. Treat CHF exacerbation with IV Lasix. PT consult. - Advance Directives Does patient have a Living Will: No Does patient have a Durable POA for Healthcare: No
[2021-12-27] MEDS ORDERED: ACETAMINOPHEN 500 MG TAB PO PRN (20:20)
[2021-12-27] MEDS ORDERED: ALBUTEROL 2.5 MG/3 ML NEB SOL NEB PRN (20:20)
[2021-12-27] MEDS ORDERED: ONDANSETRON 4 MG/2 ML VIAL IV PRN (20:20)
[2021-12-27] MEDS ORDERED: ATORVASTATIN 40 MG TAB PO SCH (21:00)
[2021-12-27] MEDS: INSULIN -REGULAR HUMAN 50 UNIT/0.5 ML ML SQ SCH (22:04)
[2021-12-27] MEDS: INSULIN GLARGINE 100 UNIT/ML SQ SCH (22:04)
[2021-12-27 22:45] VITALS: BMI 38.0
[2021-12-28 03:28] LABS: Protime INR 1.15
[2021-12-28 03:30] LABS: Absolute Lymphocytes (CBC) 0.8 K/uL (0.7-4.9); Hematocrit 28.7 % (36.0-45.0); Lymphocytes % 15.3 % (15.3-44.8); MPV 7.7 fL (7.6-11.3); RBC Red Blood Cell Count 3.16 M/uL (3.86-4.86)
[2021-12-28 03:46] LABS: Magnesium 1.5 mg/dL (1.8-2.4); Phosphorus 2.3 mg/dL (2.5-4.9); Potassium 4.5 mmol/L (3.5-5.1); Thyroid Stimulating Hormone 0.323 uIU/mL (0.360-3.740)
[2021-12-28] MEDS ORDERED: Magnesium Sulfate 2gm IVPB 2 G/50 ML BAG IV ONE (03:48)
[2021-12-28] MEDS: POTASS/SODIUM PHOSPHATE 1 PKT POWD.PACK PO SCH ×3 (04:39→07:56)
[2021-12-28] MEDS: INSULIN -REGULAR HUMAN 50 UNIT/0.5 ML ML SQ SCH (07:56)
[2021-12-28] MEDS: INSULIN GLARGINE 100 UNIT/ML SQ SCH (07:58)
[2021-12-28] MEDS: CLOPIDOGREL 75 MG TABLET PO SCH ×2 (07:58→08:01)
[2021-12-28] MEDS ORDERED: ISOSORBIDE MONO SR 30 MG TAB PO SCH (09:00)
[2021-12-28] MEDS ORDERED: ASPIRIN 81 MG CHEWABLE TABLET PO SCH (09:00)
[2021-12-28 09:35] VITALS: O2SAT 99
[2021-12-28 10:42] VITALS: BP 135/51; TEMP 97.6
--- NOTE | 2021-12-28 12:47 | ECHO ---
HEIGHT: 5 ft 0 in WEIGHT: 195 lb 0 oz DATE OF STUDY: 12/28/[address]: adonis phillips 2-DIMENSIONAL: YES M.MODE: YES DOPPLER: YES COLOR FLOW: YES TDS: NO PORTABLE: NO DEFINITY: NO BUBBLE STUDY: NO DIAGNOSIS: TACHYCARDIA/ HISTORY OF CONGESTIVE HEART FAILURE CARDIAC HISTORY: CATHERIZATION: YES SURGERY: YES PROSTHETIC VALVE: NO PACEMAKER: NO MEASUREMENTS (cm) DIASTOLIC (NORMALS) SYSTOLIC (NORMALS) IVSd 1.1 (0.6-1.2) LA Diam 2.8 (1.9-4.0) LVEF 48% LVIDd 5.0 (3.5-5.7) LVIDs 3.8 (2.0-3.5) %FS 24% LVPWd 1.2 (0.6-1.2) Ao Diam 2.7 (2.0-3.7) 2 DIMENSIONAL ASSESSMENT: RIGHT ATRIUM: NORMAL LEFT ATRIUM: NORMAL RIGHT VENTRICLE: NORMAL LEFT VENTRICLE: NORMAL TRICUSPID VALVE: NORMAL MITRAL VALVE: MILD MITRAL REGURGITATION PULMONIC VALVE: NORMAL AORTIC VALVE: NORMAL PERICARDIAL EFFUSION: NONE AORTIC ROOT: NORMAL LEFT VENTRICULAR WALL MOTION: MILD POSTERIOR WALL HYPOKINESIS. DOPPLER/COLOR FLOW: MILD MITRAL REGURGITATION, MILD TRICUSPID REGURGITATION. COMMENTS: MILDLY DEPRESSED LEFT VENTRICULAR EJECTION FRACTION 45-50% WITH MILD POSTERIOR HYPOKINESIS. MILD MITRAL REGURGITATION. MILD TRICUSPID REGURGITATION. GRADE I DIASTOLIC DYSFUNCTION. TECHNOLOGIST: GONZALO ZAMORA
--- NOTE | 2021-12-28 13:15 | P.DS ---
Admission Date: 12/27/21 Discharge Date: 12/28/21 Disposition: [facility] HOME/HOME HEALTH CARE Discharge Condition: FAIR Reason for Admission: Generalized weakness - Problems (1) Generalized weakness Current Visit: Yes Status: Acute (2) Symptomatic anemia Current Visit: Yes Status: Acute (3) Acute on chronic diastolic heart failure Current Visit: Yes Status: Acute (4) Uncontrolled type 2 diabetes mellitus with hyperglycemia Current Visit: Yes Status: Acute (5) Coronary artery disease Current Visit: No Status: Chronic Qualifiers: Coronary Disease-Associated Artery/Lesion type: [place] artery (6) Hypertension Current Visit: No Status: Chronic Brief History of Present Illness: 76-year-old woman with a history of insulin-dependent diabetes, hypertension, chronic diastolic heart failure, history of UT, prior history of anemia, status post colonoscopy EGD and capsule endoscopy, etiology of anemia still unknown presented to the emergency department with a complaint of generalized weakness of 1 month duration. Patient reported progressive weakness over the past 1 week, up to the point she is not able to ambulate. She reports palpitation of 1 day duration. She denied any nausea vomiting or diarrhea. She denied any melena or hematochezia or hematemesis. Blood work done in the emergency department showed anemia with hemoglobin of 7.6. Patient was tachycardic in the ED. EKG demonstrates a sinus rhythm with diffuse T wave inversions. Patient was complaining of pain and swelling in the neck area. CT soft tissue of the neck unremarkable, CT chest abdomen pelvis demonstrated groundglass opacity in the lungs suggestive of interstitial edema and features suggestive of prominent COPD. Glucose markedly elevated to 500s. Patient weakness suspected to be related to CHF and symptomatic anemia. She is hospitalized for further management. Hospital Course: Placed under observation on the medical floor. She was transfused 1 unit of PRBC which brought her hemoglobin up to 9.6. Patient's fatigue and shortness of breath significantly improved after blood transfusion. Troponin trended negative. Echocardiogram demonstrated mildly reduced LV function, EF of 48%. Patient symptoms is secondary to symptomatic anemia. Patient seen by PT and she was able to ambulate. Vitals are stable, patient has clinically improved and deemed stable for discharge. Vital Signs/Physical Exam: Temp Pulse Resp BP Pulse Ox 97.6 F 84 16 135/51 L 97 12/28/21 08:00 12/28/21 08:00 12/28/21 08:00 12/28/21 08:00 12/28/21 08:00 General: Alert, In no apparent distress, Oriented x3 HEENT: Atraumatic, Mucous membr. moist/pink, Sclerae nonicteric Neck: Supple, JVD not distended Respiratory: Clear to auscultation bilaterally, Normal air movement Cardiovascular: Regular rate/rhythm, Normal S1 S2, Edema (Mild bilateral lower extremity edema) Gastrointestinal: Soft and benign, Non-distended, No tenderness Musculoskeletal: No swelling Integumentary: No rashes Neurological: Normal strength at 5/5 x4 extr, Cranial nerves 3-12 intact Laboratory Data at Discharge: WBC 4.90 K/uL (4.3-10.9) 12/28/21 03:00 Hgb 9.6 g/dL (12.0-15.0) L 12/28/21 03:00 Hct 28.7 % (36.0-45.0) L D 12/28/21 03:00 Plt Count 195 K/uL (152-406) D 12/28/21 03:00 PT 12.7 SECONDS (9.5-12.5) H 12/28/21 03:00 INR 1.15 12/28/21 03:00 Sodium 142 mmol/L (136-145) 12/28/21 03:00 Potassium 4.5 mmol/L (3.5-5.1) 12/28/21 03:00 BUN 24 mg/dL (7-18) H 12/28/21 03:00 Creatinine 1.51 mg/dL (0.55-1.3) H 12/28/21 03:00 Glucose 357 mg/dL (74-106) H 12/28/21 03:00 Phosphorus 2.3 mg/dL (2.5-4.9) L 12/28/21 03:00 Magnesium 2.0 mg/dL (1.8-2.4) D 12/28/21 11:07 Home Medications: Atorvastatin Calcium [Lipitor] 40 mg PO BEDTIME 05/09/18 Furosemide [Lasix] 40 mg PO DAILY 05/09/18 Insulin Glargine Human [Lantus*] 52 units SQ BEDTIME 05/09/18 Metoprolol Succinate [Toprol Xl*] 50 mg PO DAILY 05/09/18 Acetaminophen [Arthritis Pain] 650 mg PO DAILYPRN PRN 12/27/21 Atorvastatin Calcium 40 mg PO BEDTIME 12/27/21 Ferrous Gluconate [Iron] 236 mg PO DAILY 12/27/21 Gabapentin 300 mg PO BEDTIME 12/27/21 Losartan Potassium 25 mg PO DAILY 12/27/21 ondansetron HCL [Ondansetron HCl] 8 mg PO DAILYPRN PRN 12/27/21 Diet: ADA Activity: Fall precautions Followup: NONE,NONE [Primary Care Provider] - 1-2 Weeks Robson Ramos MD [ACTIVE - CAN ADMIT] - 1-2 Weeks (Please call office at [phone] for appointment. Reason for referral: LV dysfunction, heart failure.)
== END 2021-12-28 14:29 | disposition home health service (06) ==
LOC: ER 11:21 → ERHOLD 16:34 → 4TH 19:53
PROVIDERS: ADMIT Internal Medicine; ATTEND Internal Medicine
PROC: 30233N1 Transfusion of Nonautologous Red Blood Cells into Peripheral Vein, Percutaneous Approach (ICD-10-PCS; principal; 2021-12-27)
DX: D64.9 Anemia, unspecified (principal); I11.0 Hypertensive heart disease with heart failure; I50.33 Acute on chronic diastolic (congestive) heart failure; E11.65 Type 2 diabetes mellitus with hyperglycemia; R53.1 Weakness; R00.0 Tachycardia, unspecified; M54.2 Cervicalgia; R22.1 Localized swelling, mass and lump, neck; J44.9 Chronic obstructive pulmonary disease, unspecified; E11.40 Type 2 diabetes mellitus with diabetic neuropathy, unspecified; E78.5 Hyperlipidemia, unspecified; I25.10 Atherosclerotic heart disease of native coronary artery without angina pectoris; I25.2 Old myocardial infarction; Z95.1 Presence of aortocoronary bypass graft; Z79.4 Long term (current) use of insulin; Z79.82 Long term (current) use of aspirin; Z79.02 Long term (current) use of antithrombotics/antiplatelets; Z79.899 Other long term (current) drug therapy; Z88.1 Allergy status to other antibiotic agents; Z20.822 Contact with and (suspected) exposure to COVID-19; Z83.3 Family history of diabetes mellitus
CPT/HCPCS: 93005; 93306; 85025 ×2; 80048 ×2; 36415; 86900; 83735 ×2; 86850; 84100; 85610; 86901; 82947 ×4; 84443; 81003; 84484 ×3; 83880; 70450; 70490; 71250; 74176; 71045; 97116; 97161; 96374; 99285; 36430; U0003; J3475; G0378 ×2; P9016 ×2; J7050; J7040 ×2

== ENCOUNTER 2022-05-10 06:30 | Day surgery (SDC) | payer OTHER ==
--- NOTE | 2022-05-07 15:57 | RAD REPORT ---
EXAM DESCRIPTION: RAD - Chest Pa And Lat (2 Views) - 05/07/2022 3:50 pm CLINICAL HISTORY: Pre op pending heart catheterization Chest pain. COMPARISON: Chest Single View dated 12/27/2021; Chest Single View dated 10/14/2019; Chest Single View d ated 10/10/2019; Chest Single View dated 05/09/2018 FINDINGS: The lungs are emphysematous but clear. Bilateral pleural thickening is present, greater on the right. The heart is normal in size. Sternotomy wires are present. IMPRESSION: Moderate COPD. The USPSTF recommends annual screening for lung cancer with low-dose CT (LDCT) in adults aged 50 to 8 0 years who have a 20 pack-year smoking history and currently smoke or have quit within the past 15 y ears.
[2022-05-07 16:31] LABS: Absolute Lymphocytes (CBC) 1.3 K/uL (0.7-4.9); Hematocrit 27.6 % (36.0-45.0); Lymphocytes % 34.4 % (15.3-44.8); MCV 99.4 fL (80-100); MPV 8.3 fL (7.6-11.3); RBC Red Blood Cell Count 2.78 M/uL (3.86-4.86)
[2022-05-07 16:36] LABS: Protime INR 1.12
[2022-05-07 16:52] LABS: SARS-CoV-2 Antigen Rapid Res Positive (Negative)
[2022-05-10] MEDS ORDERED: MIDAZOLAM HCL 2 MG/2 ML INJ ONE (06:49)
[2022-05-10] MEDS ORDERED: HEPA 1000U/500MLS 3,000 UNIT/1,500 ML BAG IV ONE (06:49)
[2022-05-10] MEDS ORDERED: FENTANYL CITR 100 MCG/2 ML ONE (06:49)
[2022-05-10] MEDS ORDERED: NA CHLORIDE 0.9% 0 ML IV ONE (06:50)
[2022-05-10] MEDS ORDERED: ATROPINE SULF 1 MG/10 ML SYR IV ONE (06:50)
[2022-05-10] MEDS ORDERED: LIDOCAINE 1% MPF 5 ML VIAL ONE (06:50)
[2022-05-10] MEDS ORDERED: NA CHLORIDE 0.9% 500 ML ONE (06:57)
[2022-05-10] MEDS ORDERED: ACETYLCYST 20% 4 ML VIAL IH ONE (08:18)
[2022-05-10] MEDS ORDERED: ACETAMINOPHEN 325 MG TABLET ONE (10:38)
[2022-05-10 12:53] VITALS: O2SAT 99
[2022-05-10 14:35] VITALS: BP 138/45
--- NOTE | 2022-05-10 19:31 | OP ---
Surgeon: Robson Ramos MD Director Of Market Research: Ms. Tori Montero. Procedures: Left heart catheterization, selective coronary arteriogram, vein graft injection, aortic root injection, an abdominal aortogram with runoff, and NIÑO injection. Indication: PAD and CAD. Procedure In Detail: In the rn cardiac cath, Ms. Grossman was prepped and draped in the routine sterile fashio n. Given Versed and fentanyl for sedation. A 6-Mongolian sheath introduced in the right common femoral artery successfully using the Seldinger technique and 10 cc of Xylocaine. Iban catheter, left an d right were used to cannulate the left main and right main respectively. The left main was normal, but she had a complete occlusion of the circumflex and the LAD. This was done using the JL4 catheter . A JR4 catheter was used to cannulate the right main, which had a 90% proximal stenosis. It was a very large vessel. This is a dominant vessel. The JR4 catheter was then moved and cannulated the ve in graft, which appears to be going to the obtuse marginal that was a stump that was completely occlu ded. The RCA catheter was then moved to the subclavian artery on the left. There was a patent stent in the subclavian. The NIÑO appeared to be open and patent all the way to the LAD. The aortic root was done to rule out the presence of another graft that was normal with only the RCA graft visible. Following that, an LV-gram was done with a pigtail, which showed a 40% to 45%, mild global hypokines is with left ventricular end-diastolic pressure of 25 mmHg. Abdominal angiogram with runoff was done above the renals showing 100% occlusion of bilateral SFA with reconstitution at the popliteal. We d ecided to hold pressure for hemostasis. Anesthesia: Total conscious sedation was 60 minutes. Mucomyst was ordered after the procedure. She will be hydrated at 125 cc an hour while she is at bedrest for 6 hours before she goes home today. There were no complications. Blood Loss: 5 mL. Postoperative Diagnosis: Severe coronary artery disease, moderate congestive heart failure, severe p eripheral arterial disease. We will treat her CAD and CHF with medical therapy. I will send her for possible bilateral femoral-popliteal to [facility] in [place]. Please note that the patient w as COVID positive without any symptoms and she was told about that diagnosis. JODIE/SUNNY Voice ID: [id number] Report ID: [id number]
== END 2022-05-10 14:35 | disposition home or self-care (01) ==
LOC: CCL 06:30
DX: I25.10 Atherosclerotic heart disease of native coronary artery without angina pectoris (principal); I25.810 Atherosclerosis of coronary artery bypass graft(s) without angina pectoris; I25.82 Chronic total occlusion of coronary artery; I70.213 Atherosclerosis of native arteries of extremities with intermittent claudication, bilateral legs; I70.92 Chronic total occlusion of artery of the extremities; I11.0 Hypertensive heart disease with heart failure; I50.32 Chronic diastolic (congestive) heart failure; U07.1 COVID-19; I65.23 Occlusion and stenosis of bilateral carotid arteries; I35.1 Nonrheumatic aortic (valve) insufficiency; I34.0 Nonrheumatic mitral (valve) insufficiency; E78.2 Mixed hyperlipidemia; E11.9 Type 2 diabetes mellitus without complications; G62.9 Polyneuropathy, unspecified; J44.1 Chronic obstructive pulmonary disease with (acute) exacerbation; K21.9 Gastro-esophageal reflux disease without esophagitis; Z79.82 Long term (current) use of aspirin; Z79.899 Other long term (current) drug therapy; Z88.1 Allergy status to other antibiotic agents
CPT/HCPCS: 85025; 80048; 36415; 85610; 82947; 85730; 71046; 93567; 75630; 93459; 87811; C1893; Q9967; J2250; J3010; J7040; J1644; J0583

== ENCOUNTER 2022-08-28 02:08 | Inpatient (IN) | payer OTHER ==
--- OUTSIDE RECORDS SUMMARY | 2022-08-28 02:16 | XMS REPORT | Continuity of Care Document ---
:1945 Author Organization [facility] t Address [address] [place] [address] Care Team Providers Name Role Phone RENEE QUINTANILLA Primary Care Physician Unavailable Renee Quintanilla Attending Clinician Unavailable PRISCILA GUILLORY Attending Clinician Unavailable Priscila Guillory MD Attending Clinician PRISCILA GUILLORY Attending Clinician Unavailable DIANE WHITEHEAD Attending Clinician Unavailable Suman Underwood MD Attending Clinician Lab, [place] - Db Attending Clinician Unavailable SUMAN UNDERWOOD Attending Clinician Unavailable Marin Muller MD Attending Clinician LOTTIE, JANICE K.H. Attending Clinician Unavailable Pob, Adc Lab Main Attending Clinician Unavailable Marion Vu DPM Attending Clinician MARION VU JR Attending Clinician Unavailable Doctor Unassigned, Amberg Attending Clinician Unavailable Nilo Jimenez MD Attending Clinician NILO JIMENEZ Attending Clinician Unavailable BRODY PLAZA Attending Clinician Unavailable Cade HUYNH, Sandra [place] Attending Clinician Unavailable Last Alicea DO Attending Clinician Tramaine Monique MD Attending Clinician Ashok SABA MD, Michael James Attending Clinician [phone] Yamilet Humphreys MD Attending Clinician Migdalia Gong MD Attending Clinician [phone] Praveena Espinoza Attending Clinician PRAVEENA SMITH Attending Clinician Unavailable PATRICIA RODRÍGUEZ Attending Clinician Unavailable PATRICIA RODRÍGUEZ Attending Clinician Unavailable Lottie ALEXANDER, Sendelgin K.H. Attending Clinician SAHARA RODRIGUEZ Attending Clinician Unavailable BECKIE BEDOYA Attending Clinician Unavailable RENEE REYES Attending Clinician Unavailable Lisseth Salinas Attending Clinician Unavailable LAST ALICEA Attending Clinician Unavailable FELY DELACRUZ Attending Clinician Unavailable JOEY EDGE Attending Clinician Unavailable PRISCILA GUILLORY Admitting Clinician Unavailable NILO JIMENEZ Admitting Clinician Unavailable Ashok SABA MD, Michael James Admitting Clinician [phone] SUMAN UNDERWOOD Admitting Clinician Unavailable Lisseth Salinas Admitting Clinician Unavailable KJ WILL Admitting Clinician Unavailable LAST ALICEA Admitting Clinician Unavailable Payers Payer Name Policy Type Policy Number Effective Date Expiration Date Darling olmos [employer] MEDICARE [id number] 2020 00:00:00 [employer]LL[employer]/UHC DUAL [id number] 2020 COMP HMO D SNP 00:00:00 [facility] [id number] 2021 MEDICAID 00:00:00 MEDICAID [facility] [id number] 2011 00:00:00 WELLMED DUAL [id number] COMPLETE SNP HMO-GOOD [facility]-MEDICAID - [id number] MEDICAID Problems Condition Condition Condition Status Onset Resolution Last Treating Co mments Source Name Details Category Date Date Treatment Clinician Date Peripheral Peripheral Disease Active [facility] artery artery 9-13 [facility] disease disease 00:[facility]: Medical [address] [place] [address] PAD PAD Disease Active [facility] (periphera (periphera 8-25 Co llege l artery l artery 00:00: of disease) disease) 00 Medici n (HCCode) (HCCode) e Noncomplia Noncomplia Disease Active U andrew nce nce 2-15 ity of 00:00: [place] 00 Medical Branch Acidosis Acidosis Disease Active Unive rs 2-04 ity of 00:00: [place] 00 Medical Branch Chronic Chronic Disease Active 2020-10 Univers anemia anemia 1-06 ity of 00:00: [place] [facility] Gastroesop Gastroesop Disease Active U andrew hageal hageal 8-31 ity of reflux reflux 00:00: [place] disease disease 00 Medical without without Branch esophagiti esophagiti s s HFrEF HFrEF Disease Active Univers (heart (heart 8-31 ity of failure failure 00:00: [place] with with 00 Medical reduced reduced Branch ejection ejection fraction) fraction) Pneumonia Pneumonia Disease Active Uni vers due to due to 8-05 ity of COVID-19 COVID-19 00:00: [place] virus virus 00 Medical Branch Dysthymia Dysthymia Disease Active Uni vers 1-23 ity of 00:00: [place] 00 Medical Branch Osteopenia Osteopenia Disease Active 2019-10 U nivers 1-04 ity of 00:00: [place] [facility] Abdominal Abdominal Disease Active 2019-10 Uni vers wall wall 0-29 ity of hernia hernia 00:00: [place] 00 Medical Branch Abdominal Abdominal Disease Active 2019-10 Uni vers wall wall 0-29 ity of hernia hernia 00:00: [place] [facility] Cervical Cervical Disease Active Unive rs spine spine 5-12 ity of arthritis arthritis 00[place]00[place] Chronic Chronic Disease Active [facility] neck pain neck pain 5-12 ity of 00:00: [place] [facility] Microscopi Microscopi Disease Active U nivers c c 3-01 ity of hematuria hematuria 00:00[place] [facility] [place] Lower Lower Disease Active [facility] urinary urinary 3-01 ity of tract tract 00:00: [place] symptoms symptoms 00 Medica l Branch Chronic Chronic Disease Active Univers diarrhea diarrhea 2-27 ity of 00:00: [place] [facility] Medicare Medicare Disease Active 2018-10 [...] 5-12 ity of 30-39.9) 30-39.9) 00:00: [place] [facility] CKD CKD Disease Active 2015-10 [...] Type 2 Disease Active Univers diabetes diabetes 01-10 ity of mellitus mellitus 00:00: [place] with with 00 Medical complicati complicati Br anch on, with on, with long-term long-term current current use of use of insulin insulin UTI (lower UTI (lower Disease Active U nivers urinary urinary 01-10 ity of tract tract 00:00: [place] infection) infection) 00 Me dical Branch Hyperkalem Hyperkalem Disease Active U nivers ia ia 01-10 ity of 00:00: [place] [facility] Fatty Fatty Disease Active Univers liver liver 11-07 ity of disease, disease, 00:00: [place] nonalcohol nonalcohol 00 Me dical ic ic Branch Ischemic Ischemic Disease Active 2014-10 Unive rs cardiomyop cardiomyop 10-21 it y of athy athy 00:00: [place] 00 Medical Branch 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 10-21 ity of disease disease 00:00: [place] involving involving 00 Medi hiram [place] Branch coronary coronary artery artery without without [...] disease) disease) Dyslipidem Dyslipidem Disease Active U nivers ia ia ity of [place] [facility] Chronic Chronic Disease Resolve 2016-07-27 2016-07-28 Univers kidney kidney d 2 00:00:00 01:43:12 ity of disease, disease, 00:00: [...] ents Source Name Type Date Date Clinician Ciproflo Propensi Active [facility] 2021-[facility]12 [facility] adverse 00:00: Medical reaction 00 Center s Metformi Propensi Active Diarrhea 2021-[address] [facility] ty to 9-12 [facility] adverse 00:00: Medical reaction 00 Center s [place] Propensi Active Diarrhea 2021-[address] Flower ty to 9-12 [facility] adverse 00:00: Medical reaction 00 Center s CIPROFLO Allergy Active Itching 2021-[address] XACIN 9-12 [facility] 00:[facility]: Medical 00 Center METFORMI Allergy Active Diarrhea 2021-0 [facility] N 9-12 [facility] 00:[facility]: Medical 00 Center ORANGE Allergy Active Diarrhea 2021-[address] FLOWER 9-12 [facility] 00:00: Medical 00 Center Metformi Propensi Active Diarrhea 2020- [facility] or n ty to 0-28 College adverse 00:00: of reaction 00 Medicin s to e drug Metformi Propensi Active Diarrhea 2020-1 Univ ers n ty to 0-28 ity of adverse 00:00: [place] reaction 00 Medical s Branch METFORMI DRUG Active Diarrhea 2020-1 Univer s N INGREDI 0-28 ity of 00:00: [place] 00 Medical Branch [place] Propensi Active Diarrhea 2020-0 Juan José Flower ty to 8-29 College [place] adverse 00:00: of reaction 00 Medicin s to e drug ORANGE DRUG Active High Diarrhea 2020-0 Univers JUICE INGREDI 8-29 ity of 00:00: [place] 00 Medical Branch [place] Propensi Active Diarrhea 2020-0 Univer s Juice ty to 8-29 ity of adverse 00:00: [place] reaction 00 [facility] ciproflo DA Active U 2018- [facility] xacin 6-14 [place] 00:00: [address] ciproflo DA Active U 2018- [facility] xacin 5-03 [place] 00:00: [address] ciproflo DA Active SV 2017-10 [facility] xacin 1-09 00:00: [address] ciproflo DA Active [place] UNKNOWN [facility] xacin - 00:00: [address] clopidog DA Active [place] diarrhea, [facility] rel headache 06-12 00:00: [address] ciproflo DA Active [place] [facility] xacin 9-07 [place] 00:00: d 00 [facility] clopidog DA Active [place] [facility] rel 9- [place] 00:00: d 00 [facility] Propens[facility] Active Itching [place] xacin ty to 818 College adverse 00:00: of reaction 00 Medicin s to e [facility] Active Med ITCHING Univers XACIN INGREDI 05-23 ity of 00:00: [place] [address] [facility] Branch ciproflo DA Active [facility] clopidog DA Active [place] [facility] rel 7-10 [facility] 00:00: e 00 [facility] Social History Social Habit Start Date Stop Date Quantity Comments Source History SDOH [facility] Alcohol Std Medical Cente r Drinks History SDOH [facility] Alcohol Binge Medical Alicia ter History SDOH [facility] Alcohol Comment Medical C enter Exposure to Not sure University of SARS-CoV-2 [place] [facility] (event) Branch Alcohol intake 2022-06-20 2022-06-[address] [facility] es 00:00:00 00:00:00 non-drinker Medical Cente r (finding) History SDOH 2022-06-18 2022-06-[address] [facility] Alcohol Frequency 00:00:00 00:00:00 [facility] Tobacco Comment 2022-06-18 2022-06-18 quit 6 [facility]rs ago [facility]00 [facility] Tobacco use and 2022-06-18 2022-06-[address] [facility] kes exposure 00:00:00 00:00:00 [facility] Sex Assigned At [address] 00:00:00 00:00:00 [facility] Smoking Status Start Date Stop Date Source Former smoker 2022-06-18 00:00:00 2022-06-18 00:00[facility] [facility] Medications Ordered Filled Start Stop Current Ordering Indication Dosage Frequency Signature Comments Components Source Medication Medication Date Date Medication? Clinician (SIG) Name Name abdirahman Yes 40mg QD Take [address] [facility] (LIPITOR) 9-13 by mouth Luke s 40 MG 21:06: daily. Medical tablet 46 Center furosemide Yes 40mg QD Take [address] (LASIX) 40 9-13 by mouth [facility] MG tablet 21:06: daily. Medica l 46 Center gabapentin Yes 300mg Q.5D Take [address] (NEURONTIN) 9-13 mg by [facility] 300 MG 21:06: mouth 2 Medical capsule 46 (two) Center times daily . metoprolol Yes 50mg QD Take [address] succinate 9-13 by mouth [facility] (TOPROL-XL) 21:06: daily. Medi hiram 50 MG 24 hr 46 Center tablet nitroglycer Yes .4mg Place 0.[address] in 9-13 mg under [facility] (NITROSTAT) 21:06: the tongue Medical 0.4 MG SL 46 every 5 Center tablet (five) minutes as needed for Chest pain Put 1 pill under tongue every 5min as needed for chest pain.No more than 3 doses in 15min.Call 911 if pain unrelieved 5min after 1st dose . insulin Yes 52U Q.5D Inject 52 [facility] glargine 9-13 Units [facility] (LANTUS, 21:06: subcutaneo Med ical SEMGLEE) 46 usly 2 Center 100 unit/mL (two) injection times daily. HYDROcodone Yes 1{tbl} Take [address] -acetaminop 9-13 tablet by Handy gonzalez (NORCO 21:06: mouth Medica l 7.5-325) 46 every 6 Center 7.5-325 mg (six) per tablet hours as needed for Pain. potassium Yes 20meq QD Take [address] chloride SA 9-13 mEq by [facility] (K-DUR,KLOR 21:06: mouth Medic al -CON-M) 20 46 daily. Center MEQ tablet losartan Yes QD Take by [facility] (COZAAR) 25 9-13 mouth [facility] MG tablet 21:06: daily Does Me dical 46 not know Center dose . aspirin 81 0 2022- Yes 81mg QD Take [address] MG EC 9-13 09-13 tablet (81 [facility] tablet 00:00: 23:59 mg total) Medic al 00 :00 by mouth Center daily. clopidogreL 3- Yes 75mg QD Take [address] (PLAVIX) 75 06-18 tablet (75 L ukes mg tablet 00:00: 23:59 mg total) Me dical 00 :00 by mouth Center daily. aspirin 81 0 2021- No 81mg QD Take [address] MG EC 06-18 tablet (81 [facility] tablet 00:00: 00:00 mg total) Medic al 00 :00 by mouth Center daily. clopidogreL 0 2021- No 75mg QD Take [address] (PLAVIX) 75 06-18 tablet (75 L ukes mg tablet 00:00: 00:00 mg total) Me dical 00 :00 by mouth Center daily. hydrocodone 0 Yes [facility] -acetaminop 8-18 College hen (NORCO) 00:00: of 7.5-325 MG 00 Medicin per tablet e LANTUS Yes [facility] SOLOSTAR 8-04 [place] 100 UNIT/ML 00:00: of SOPN 00 Medicin e metoprolol 0 Yes 50mg Take 50 mg [facility] (TOPROL-XL) 7-25 by mouth Deena ege 50 MG XL 00:00: daily. of tablet 00 Medicin e atorvastati Yes 40mg Take 40 mg [facility] n (LIPITOR) 7-25 by mouth Deena ege 40 MG 00:00: daily. of tablet 00 Medicin e furosemide 0 Yes 40mg Take 40 mg [facility] (LASIX) 40 7-25 by mouth Colle ge MG tablet 00:00: daily. of 00 Medicin e LANTUS 0 Yes [id number] INJECT 52 Un sherrell SOLOSTAR 4-26 UNITS ity of U-100 00:00: UNDER THE [place] INSULIN 100 00 SKIN TWO Medi hiram unit/mL (3 TIMES Branch mL) DAILY. injection nitroglycer [address] 0[address]4 [facility] in 2-02 mg under College (NITROSTAT) 00:00: the of 0.4 mg 00 tongue. Medicin sublingual e tablet nitroglycer [id number] 1 Univers in 0.4 mg 2-02 tablet ity of sublingual 00:00: [place] the [place] tablet 00 tongue Medical every 5 Branch (five) minutes as needed for Chest pain. albuterol Yes [id number] 2{puff} Inhale 2 Univers 90 2-02 Puffs ity of mcg/actuati 00:00: every 6 [place] as on inhaler 00 (six) Medical hours as Branch needed for Wheezing or Shortness of Breath. Insulin Yes [id number] 52U inject 52 U nivers Glargine 2-02 Units ity of (LANTUS 00:00: under the [place] SOLOSTAR 00 skin 2 Medical U-100 (two) Branch INSULIN) times 100 unit/mL daily. (3 mL) injection nitroglycer Yes [id number] .4mg Place 1 Univers in 0.4 mg 2-02 tablet ity of sublingual 00:00: under the [place] tablet 00 tongue Medical every 5 Branch (five) minutes as needed for Chest pain. albuterol Yes [id number] 2{puff} Inhale 2 Univers 90 2-02 Puffs ity of mcg/actuati 00:00: every 6 [place] as on inhaler 00 (six) Medical hours as Branch needed for Wheezing or Shortness of Breath. Insulin 2021- No [id number] 52U inject 52 Univers Glargine 2-02 04-26 Units ity of (LANTUS 00:00: 00:00 under the [facility] SOLOSTAR 00 :00 skin 2 Medical U-100 (two) Branch INSULIN) times 100 unit/mL daily. (3 mL) injection atorvastati Yes [id number] 40mg Take 1 Univers n 40 mg 1-18 tablet by ity of tablet 00:00: mouth [place] 00 daily. Medical Branch atorvastati Yes [id number] 40mg Take 1 Univers n 40 mg 1-18 tablet by ity of tablet 00:00: mouth [place] 00 daily. Medical Branch HYDROcodone Yes Univer s -acetaminop 1-06 ity of hen 7.5-325 00:00: [place] mg per 00 Medical tablet Branch gabapentin 2020-10 Yes 300mg Take 300 [facility] (NEURONTIN) 1-16 mg by College 300 MG 00:00: mouth. of capsule 00 Medicin e gabapentin 2020-10 Yes [id number] 300mg Take 1 Univers 300 mg 1-16 capsule by ity of capsule 00:00: mouth at [place] 00 bedtime. Medical Branch gabapentin 2020-10 Yes [id number] 300mg Take 1 Univers 300 mg 1-16 capsule by ity of capsule 00:00: mouth at [place] 00 bedtime. Medical Branch [facility] 2020-10 Yes [id number] Apply to Univers ne 0.5 % 0-29 9107 area(s) 2 ity of ointment 00:00: (two) [place] 00 times Medical daily. Branch [facility] 2020-10 Yes [id number] Apply to Univers ne 0.5 % 0-29 9107 area(s) 2 ity of ointment 00:00: (two) [place] 00 times Medical daily. Branch lancets-blo 2020-10 Yes [id number] 1{each} 1 Each 2 Univers od glucose 0-15 (two) ity of strips 30 00:00: times [place] gauge Cmpk 00 daily. DX Medi hiram E11.9 Branch (Brand upon insurance approval) UNIFINE 2020-10 Yes USE Univers PENTIPS 0-15 DIRECTED ity of PLUS 33 00:00: FOR TWICE [place] gauge x 00 A DAY Medical " Ndle INSULIN Branch ADMINISTRA TION. lancets-blo 2020-10 Yes [id number] 1{each} 1 Each 2 Univers od glucose 0-15 (two) ity of strips 30 00:00: times [place] gauge Cmpk 00 daily. DX Medi hiram E11.9 Branch (Brand upon insurance approval) UNIFINE 2020-10 Yes USE Univers PENTIPS 0-15 DIRECTED ity of PLUS 33 00:00: FOR TWICE [place] gauge x 00 A DAY Medical 32" Ndle INSULIN Branch ADMINISTRA TION. fsh-flx-prm Yes 1{capsu Take 1 U nivers -blkbor-om -05 le} capsule by ity of 3,6,9 #6 17:15: mouth [place] (FISH, FLAX 17 daily. Medica l & BORAGE 1,040 Branch OIL, PRIM,) mg/575mg 400-400-200 EPA/425mg mg Cap DHA multivit-ir Yes 1{tbl} Take 1 Tab Univers on-FA with 9-05 by mouth ity o f Ca&mins 17:15: daily. [place] (THERA-TABS 17 Medical M) 27 mg Branch iron-400 mcg Tab omeg3/epa/d Yes Take by Uni vers mane/fish -05 mouth. ity of oil/flax/E 17:15: [place] (THERA 17 Medical TEARS Branch NUTRITION ORAL) CALCIUM-MAG Yes Take by Uni vers NESIUM-ZINC -05 mouth. ity of ORAL 17:15: Also with [place] 17 vitamin d Medical Branch docosahexan Yes 1200mg Take 1,200 Univers oic 9-05 mg by ity of acid/epa 17:15: mouth. [place] (FISH OIL 17 360mg Medical ORAL) omega 3 Branch fsh-flx-prm Yes 1{capsu Take 1 U nivers -blkbor-om 9-05 le} capsule by ity of 3,6,9 #6 17:15: mouth [place] (FISH, FLAX 17 daily. Medica l & BORAGE 1,040 Branch OIL, PRIM,) mg/575mg 400-400-200 EPA/425mg mg Cap DHA multivit-ir Yes 1{tbl} Take 1 Tab Univers on-FA with 05 by mouth ity o f Ca&mins 17:15: daily. [place] (THERA-TABS 17 Medical M) 27 mg Branch iron-400 mcg Tab omeg3/epa/d Yes Take by Uni vers mane/fish - mouth. ity of oil/flax/E 17:15: [place] (THERA 17 Medical TEARS Branch NUTRITION ORAL) CALCIUM-MAG Yes Take by Uni vers NESIUM-ZINC -05 mouth. ity of ORAL 17:15: Also with [place] 17 vitamin d Medical Branch docosahexan Yes 1200mg Take 1,200 Univers oic 9-05 mg by ity of acid/epa 17:15: mouth. [place] (FISH OIL 17 360mg Medical ORAL) omega 3 Branch bacitracin Yes [id number] Apply to Univers 500 9-05 affected ity of unit/gram 00:00: area(s) 4 [place] as ointment 00 (four) Medical times Branch daily. simethicone 2020-0 Yes [id number] 80mg Take 1 Univers 80 mg 9-05 tablet by ity of chewable 00:00: mouth [place] tablet 00 after Medical meals and Branch at bedtime. bacitracin 2020-0 Yes [id number] Apply to Univers 500 9-05 affected ity of unit/gram 00:00: area(s) 4 [place] as ointment 00 (four) Medical times Branch daily. simethicone 2020-0 Yes [id number] 80mg Take 1 Univers 80 mg 9-05 tablet by ity of chewable 00:00: mouth [place] tablet 00 after Medical meals and Branch at bedtime. zinc 2020-0 Yes [id number] 220mg Take 1 Univer s sulfate 50 8-09 capsule by ity of mg zinc 00:00: mouth [place] (220 mg) 00 daily. Medical capsule Branch thiamine 0 Yes [id number] 100mg Take 1 Un sherrell 100 mg 8-09 tablet by ity of tablet 00:00: mouth [place] 00 daily. Medical Branch zinc 2020-0 Yes [id number] 220mg Take 1 Univer s sulfate 50 8-09 capsule by ity of mg zinc 00:00: mouth [place] (220 mg) 00 daily. Medical capsule Branch thiamine 0 Yes [id number] 100mg Take 1 Un sherrell 100 mg 8-09 tablet by ity of tablet 00:00: mouth [place] 00 daily. Medical Branch vitamin C 2020-0 Yes [id number] 1000mg Take 1 Univers with kwame 8-08 tablet by ity o f hips 1,000 00:00: mouth [place] mg tablet 00 daily. Medical Branch cholecalcif 2020-0 Yes [id number] 2000U Take 2 Univers carmelina, 8-08 tablets by ity of vitamin D3, 00:00: mouth [place] 25 mcg 00 daily. Medical (1,000 Branch unit) tablet vitamin C 2020-0 Yes [id number] 1000mg Take 1 Univers with kwame 8-08 tablet by ity o f hips 1,000 00:00: mouth [place] mg tablet 00 daily. Medical Branch cholecalcif 0 Yes [id number] 2000U Take 2 Univers carmelina, 8-08 tablets by ity of vitamin D3, 00:00: mouth [place] 25 mcg 00 daily. Medical (1,000 Branch unit) tablet blood sugar Yes [id number] USE TO Univers diagnostic 7-23 TEST BLOOD ity of (ONETOUCH 00:00: SUGAR [place] VERIO TEST 00 TWICE Medical STRIPS) DAILY; Branch strip ICD-10 E11.8 blood sugar Yes [id number] USE TO Univers diagnostic 7-23 TEST BLOOD ity of (ONETOUCH 00:00: SUGAR [place] VERIO TEST 00 TWICE Medical STRIPS) DAILY; Branch strip ICD-10 E11.8 metoprolol Yes [id number] 50mg Take 1 U nivers succinate 6-24 tablet by ity o f XL 50 mg 24 00:00: mouth [place] hr tablet 00 daily. Medical Branch metoprolol Yes [id number] 50mg Take 1 U nivers succinate 6-24 tablet by ity o f XL 50 mg 24 00:00: mouth [place] hr tablet 00 daily. Medical Branch LOSARTAN 25 Yes [id number] 25mg TAKE 1 Univers mg tablet 6-21 TABLET BY ity o f 00:00: MOUTH [place] 00 DAILY. Medical Branch LOSARTAN 25 Yes [id number] 25mg TAKE 1 Univers mg tablet 6-21 TABLET BY ity o f 00:00: MOUTH [place] 00 DAILY. Medical Branch fsh-flx-prm Yes 1{capsu Take 1 U nivers -blkbor-om 4-20 le} capsule by ity of 3,6,9 #6 14:58: mouth [place] (FISH, FLAX 36 daily. Medica l & BORAGE 1,040 Branch OIL, PRIM,) mg/575mg 400-400-200 EPA/425mg mg Cap DHA multivit-ir Yes 1{tbl} Take 1 Tab Univers on-FA with 4-20 by mouth ity o f Ca&mins 14:58: daily. [place] (THERA-TABS 36 Medical M) 27 mg Branch iron-400 mcg Tab omeg3/epa/d Yes Take by Uni vers mane/fish 4-20 mouth. ity of oil/flax/E 14:58: [place] (THERA 36 Medical TEARS Branch NUTRITION ORAL) CALCIUM-MAG Yes Take by Uni vers NESIUM-ZINC 4-20 mouth. ity of ORAL 14:58: Also with [place] 36 vitamin d Medical Branch docosahexan Yes 1200mg Take 1,200 Univers oic 4-20 mg by ity of acid/epa 14:58: mouth. [place] (FISH OIL 36 360mg Medical ORAL) omega 3 Branch FUROSEMIDE Yes Ischemic TAKE 1 U nivers 40 mg 4-14 cardiomyopa TABLET BY it y of tablet 00:00: thy MOUTH [place] 00 EVERY DAY Medical Branch FUROSEMIDE Yes [id number] TAKE 1 Univers 40 mg 4-14 TABLET BY ity of tablet 00:00: MOUTH [place] 00 EVERY DAY Medical Branch FUROSEMIDE Yes [id number] TAKE 1 Univers 40 mg 4-14 TABLET BY ity of tablet 00:00: MOUTH [place] 00 EVERY DAY Medical Branch SPIRIVA Yes Chronic INHALE 1 Uni vers RESPIMAT 3-04 obstructive PUFF BY i ty of 2.5 00:00: pulmonary MOUTH [place] mcg/actuati 00 disease, DAILY. Me dical on Mist unspecified Branc h COPD type SPIRIVA Yes [id number] INHALE 1 Un sherrell RESPIMAT 3-04 PUFF BY ity of 2.5 00:00: MOUTH [place] mcg/actuati 00 DAILY. Medica l on Mist Branch SPIRIVA Yes [id number] INHALE 1 Un sherrell RESPIMAT 3-04 PUFF [...] [place] tablet 00 involving tongue Medica l [place] every 5 Branch coronary (five) artery of minutes as [place] needed for heart Chest without pain. angina pectoris blood sugar Yes Type 2 USE TO Un sherrell diagnostic 2-10 diabetes TEST BLOOD ity of (ONETOUCH 00:00: mellitus SUGAR [place] as VERIO TEST 00 with TWICE Medical STRIPS) complicatio DAILY; Bra [facility] strip n, with ICD-10 long-term E11.8 current use of insulin ONETOUCH 2019-10 Yes USE TO Univers DELICA PLUS 2-18 TEST BLOOD it y of LANCET 33 00:00: SUGARS [place] gauge Misc 00 THREE Medical TIMES Branch DAILY ONETOUCH 2019-10 Yes USE TO Univers DELICA PLUS 2-18 TEST BLOOD it y of LANCET 33 00:00: SUGARS [place] gauge Misc 00 THREE Medical TIMES Branch DAILY ONETOUCH 2019-10 Yes USE TO Univers DELICA PLUS 2-18 TEST BLOOD it y of LANCET 33 00:00: SUGARS [place] gauge Misc 00 THREE Medical TIMES Branch DAILY Insulin 2019-10 Yes Type 2 52U inject 52 Uni vers Glargine 0-13 diabetes Units ity of (LANTUS 00:00: mellitus under the [place] SOLOSTAR 00 with skin 2 Medical U-100 complicatio (two) Branch INSULIN) n, with times 100 unit/mL long-term daily. (3 mL) current use injection of insulin Nebulizer & 0 Yes Chronic Use as U nivers Compressor 7-15 obstructive directed; ity of For Neb 00:00: pulmonary ICD-10 [place] as [place] 00 disease, CODE J44.9 Medic al unspecified Branch COPD type Nebulizer & 2019-0 Yes [id number] Use as Univers Compressor 7-15 directed; ity of For Neb 00:00: ICD-10 [place] 00 CODE J44.9 Medical Branch Nebulizer & 0 Yes [id number] Use as Univers Compressor 7-15 directed; ity of For Neb 00:00: ICD-10 [place] 00 CODE J44.9 Medical Branch Insulin Yes Use as Univers [place], 6-26 directed ity of Disposable, 00:00: for twice [place] (BD HERBERTH 00 a day Medical 2ND GEN PEN insulin Branc h NEEDLE) 32 administra gauge x tion. 32" Ndle losartan 25 2019- Yes Ischemic 25mg Take 1 Univers mg tablet 5-12 cardiomyopa tablet by ity of 00:00: thy mouth [place] 00 daily. Medical Branch potassium 2019-0 Yes Ischemic 10meq Take 1 U nivers [...] mouth [place] 00 every Medical evening. Branch albuterol Yes [id number] .63mg Inhale 3 Univers 0.63 mg/3 5-12 mL every 6 ity of mL 00:00: (six) [place] nebulizer 00 hours as Medica l solution needed for Branc h Wheezing or Shortness of Breath. montelukast Yes [id number] 10mg Take 1 Univers 10 mg 5-12 tablet by ity of tablet 00:00: mouth [place] 00 every Medical evening. Branch albuterol Yes [id number] .63mg Inhale 3 Univers 0.63 mg/3 5-12 mL every 6 ity of mL 00:00: (six) [place] nebulizer 00 hours as Medica l solution needed for Branc h Wheezing or Shortness of Breath. montelukast Yes [id number] 10mg Take 1 Univers 10 mg 5-12 tablet by ity of tablet 00:00: mouth [place] 00 every Medical evening. Branch potassium 2021- No [id number] 10meq Take 1 Univers chloride 10 5-12 02-04 tablet by it y of mEq CR 00:00: 00:00 mouth [place] tablet 00 :00 daily. Medical Branch Lancets 2018-10 Yes Type 2 Check Univers [...] Wheezing or Shortness of Breath. aspirin 325 2018- Yes Ischemic 325mg Take 1 Univers mg [...] not hours as intractable needed (Migraine) . Lancets 2018-10 Yes [id number] Check Unive rs Misc 2-13 sugars up ity of 00:00: to 3 times [place] 00 a day. Dx Medical Code Branch E11.9. Brand per insurance. aspirin 325 2018-10 Yes [id number] 325mg Take 1 Univers mg tablet 2-13 tablet by ity o f 00:00: mouth [place] 00 daily. Medical Branch butalbital- 2018-10 Yes [id number] 1{tbl} Take 1 Univers acetaminoph 2-13 tablet by ity of en-caff 00:00: mouth [place] 50-325-40 00 every 6 Medical mg tablet (six) Branch hours as needed (Migraine) . Lancets 2018-10 Yes [id number] Check Unive rs Misc 2-13 sugars up ity of 00:00: to 3 times [place] 00 a day. Dx Medical Code Branch E11.9. Brand per insurance. aspirin 325 2018-10 Yes [id number] 325mg Take 1 Univers mg tablet 2-13 tablet by ity o f 00:00: mouth [place] 00 daily. Medical Branch butalbital- 2018-10 Yes [id number] 1{tbl} Take 1 Univers acetaminoph 2-13 tablet by ity of en-caff 00:00: mouth [place] 50-325-40 00 every 6 Medical mg tablet (six) Branch hours as needed (Migraine) . TRUEPLUS 2018-10 Yes USE [...] TIMES Medical DAILY Branch Blood-Gluco 2016-10 Yes Type 2 Use BID, Univers se Meter 0-03 diabetes DX E11.9 ity of Kit 00:00: mellitus (Brand [place] 00 with upon Medical complicatio insurance Bra [facility] n, approval) unspecified exterminator insulin use status lancets-blo 2016-10 Yes Type 2 1{each} 1 Each 2 Univers od glucose 0-03 diabetes (two) ity of strips 30 00:00: mellitus times Alber as gauge Cmpk 00 with daily. DX Medi hirma complicatio E11.9 Branch n, (Brand unspecified upon intermediate insurance insulin use approval) status Blood-Gluco 2016-10 Yes [id number] Use BID, Univers se Meter 0-03 DX E11.9 ity of Kit 00:00: (Brand [place] 00 upon Medical insurance Branch approval) Blood-Gluco 2016-10 Yes [id number] Use BID, Univers se Meter 0-03 DX E11.9 ity of Kit 00:00: (Brand [place] 00 upon Medical insurance Branch approval) Immunizations Ordered Filled Immunization Date Status Comments Sour e Immunization Name Name Pneumococcal 2018-08-22 Completed University o f Polysaccharide, 00:00:00 [place] Med ical PPSV23 (PNEUMOVAX) Branch Pneumococcal 2018-08-22 Completed University o f Polysaccharide, 00:00:00 [place] Med ical PPSV23 (PNEUMOVAX) Branch Pneumococcal 2018-08-22 Completed University o f Polysaccharide, 00:00:00 [place] Med ical PPSV23 (PNEUMOVAX) Branch Vital Signs Vital Name Observation Time Observation Value Comments Source WEIGHT 2022-06-18 10:35:00 92.08 kg HEIGHT 2022-06-18 10:35:00 162.6 cm WEIGHT 2022-06-18 10:35:00 92.08 kg HEIGHT 2022-06-18 10:35:00 162.6 cm WEIGHT 2022-06-18 10:35:00 92.08 kg HEIGHT 2022-06-18 10:35:00 162.6 cm Systolic blood 2022-05-29 15:44:00 127 mm[Hg] [facility] Diastolic blood 2022-05-29 15:44:00 93 mm[Hg] [facility] Medicine Heart rate 2022-05-29 15:44:00 92 /min [facility] Body height 2022-05-29 15:44:00 162.6 cm [facility] Body weight 2022-05-29 15:44:00 92.171 kg [facility] BMI 2022-05-29 15:44:00 34.88 kg/m2 [facility] Systolic blood 2022-06-18 18:22:00 123 mm[Hg] [facility] Diastolic blood 2022-06-18 18:22:00 53 mm[Hg] [facility] Heart rate 2022-06-18 18:22:00 79 /min [facility] Respiratory rate 2022-06-18 18:22:00 16 /min [facility] Oxygen saturation in 2022-06-18 16:44:00 98 /min [facility] Arterial blood by Medical Ce nter Pulse oximetry Body temperature 2022-06-18 10:35:00 35.06 Gilma [facility] Body height 2022-06-18 10:35:00 162.6 cm [facility] Body weight 2022-06-18 10:35:00 92.08 kg [facility] BMI 2022-06-18 10:35:00 34.84 kg/m2 [facility] Procedures Procedure Date / Time Performing Clinician Source Performed POCT-GLUCOSE METER 2022-06-18 15:55:00 Priscila Guillory [facility] ANGIOPLASTY, ARTERY, 2022-06-18 12:16:00 Priscila Guillory [facility] LOWER EXTREMITY [place] CBC W/PLT COUNT & AUTO 2022-06-18 11:51:00 ValentinaTre [facility] PROTHROMBIN TIME/INR 2022-06-18 11:51:00 ValentinaTre [facility] APTT 2022-06-18 11:51:00 Valentina, [facility] BASIC METABOLIC PANEL 2022-06-18 11:51:00 Guillory [facility] TYPE AND SCREEN, 2022-06-18 11:51:00 Valentina [facility] AUTOMATED Center CBC W/PLT COUNT & AUTO 2022-06-18 11:51:00 Valentina [facility] DIFFERENTIAL Center POCT-GLUCOSE METER 2022-06-18 11:18:00 Kahlil [facility] ECG 12-LEAD 2022-06-18 11:09:38 [facility] CARDIAC CATH REPORT - 2022-06-18 00:00:00 Provider, [facility] SCAN Scanning Center COMP. METABOLIC PANEL 2021-11-07 16:33:00 Suman Underwood [facility] ([id number]) [facility] CBC WITHOUT DIFF 2021-11-07 16:33:00 Suman Underwood [facility] AUTHORIZATION FOR 2021-01-19 05:01:00 Doctor Unassigned, No [facility] RELEASE OF PHI Name Medical Branch [id number] 2020-05-27 00:00:00 [facility] [id number] 2020-05-27 00:00:00 [facility] [id number] 2020-05-27 00:00:00 [facility] [id number] 2020-05-27 00:00:00 [facility] [id number] 2020-05-27 00:00:00 [facility] [id number] 2020-05-27 00:00:00 [facility] Plan of Care Planned Activity Planned Date Details Comments Source Future Scheduled 2030-08-09 Screening for University of Test 00:00:00 [facility] Medical (procedure) [code = Branch 053730856] Future Scheduled 2023-06-18 Tobacco Cessation [facility] Test 00:00:00 Counseling and Medical Cente r Screening (12+) [code = Tobacco Cessation Counseling and Screening (12+)] Future Scheduled 2022-06-[address] [facility] Test 00:00:00 (#1) [code = Medical Center INFLUENZA VACCINE (#1)] Future Scheduled 2022-05-30 COVID-19 Vaccine [facility] of Test 10:10:26 (#1) [code = Medicine COVID-19 Vaccine (#1)] Future Scheduled 2022-05-30 TETANUS SHOT [facility] Deena ege of Test 10:10:26 (ADULT) [code = Medicine TETANUS SHOT (ADULT)] Future Scheduled 2022-05-30 BMI FOLLOW UP PLAN [facility] [employer] of Test 10:10:26 [code = BMI FOLLOW Medicine UP PLAN] Future Scheduled 2022-05-30 Hepatitis C [facility] Deena ege of Test 10:10:26 screening Medicine (procedure) [code = 778952832] Future Scheduled 2022-05-30 ZOSTER VACCINE (1 [facility] of Test 10:10:26 of 2) [code = Medicine ZOSTER VACCINE (1 of 2)] Future Scheduled 2022-05-30 FALL SCREEN [code = [facility] [place] of Test 10:10:26 FALL SCREEN] Medicine Future Scheduled 2022-05-30 Screening for [facility] Col lege of Test 10:10:26 osteoporosis Medicine (procedure) [code = 879298761] Future Scheduled 2022-05-30 Pneumococcal 65+ (1 [facility] [place] of Test 10:10:26 - PCV) [code = Medicine Pneumococcal 65+ (1 - PCV)] Future Scheduled 2022-05-30 MEDICARE IPPE [facility] Col lege of Test 10:10:26 (WELCOME TO Medicine MEDICARE) [code = MEDICARE IPPE (WELCOME TO MEDICARE)] Future Scheduled 2022-05-30 FLU VACCINE > 6 [facility] C ollege of Test 10:10:26 MONTHS [code = FLU Medicine VACCINE > 6 MONTHS] Future Scheduled 2022-05-29 US ARTERIAL LEGS 1 Occurrences [facility] of Test 11:10:51 BILATERAL [code = starting Medicine 88831-2] 05/29/2022 until 05/29/2023 Future Scheduled 2022-01-25 Creatinine University of Test 00:00:00 measurement [place] Medical (procedure) [code = Branch 56413305] Future Scheduled 2022-01-25 Calculated low Universit y of Test 00:00:00 density lipoprotein [facility] [place] dical cholesterol level Branch (procedure) [code = 384555961] Future Scheduled 2021-10-27 DTaP,Tdap,and Td Postponed from Unive rsity of Test 00:00:00 Vaccines (1 - Tdap) 1964 [place] Me dical [code = (Insurance / Branch DTaP,Tdap,and Td Financial) Vaccines (1 - Tdap)] Future Scheduled 2021-10-27 Depression University of Test 00:00:00 screening [place] Medical (procedure) [code = Branch 440753345] Future Scheduled 2021-10-27 Medicare Annual Universi ty of Test 00:00:00 Wellness Visit [place] Medical (procedure) [code = Branch 627595132700905] Future Scheduled 2021-10-[address] [facility] Test 00:00:00 WELLNESS (YEAR 2 or Medical Center FIRST YEAR if no IPPE) [code = MEDICARE ANNUAL WELLNESS (YEAR 2 or FIRST YEAR if no IPPE)] Future Scheduled 2021-10-[address] [facility] Test 00:00:00 SCREENING (12+) Medical Cent er [code = DEPRESSION SCREENING (12+)] Future Scheduled 2021-10-[address] [facility] Test 00:00:00 SCREENING [code = Medical Ce nter FALLS RISK SCREENING] Future Scheduled 2021-10-06 Diabetic foot University of Test 00:00:00 examination [place] Medical (regime/therapy) Branch [code = 462124226] Future Scheduled 2021-08-03 Zoster Recombinant Postponed from Uni versity of Test 00:00:00 Vaccine (SHINGRIX) 1995 [place] Med ical (1 of 2) [code = (Refused) Branch Zoster Recombinant Vaccine (SHINGRIX) (1 of 2)] Future Scheduled 2021-07-27 Hemoglobin A1c Universit y of Test 00:00:00 measurement [place] Medical (procedure) [code = Branch 96818335] Future Scheduled 2021-06-06 INFLUENZA VACCINE Univer sity of Test 00:00:00 (Season Ended) [place] Medical [code = INFLUENZA Branch VACCINE (Season Ended)] Future Scheduled 2020-10-01 Microalbumin University of Test 00:00:00 measurement, urine, [place] Me dical quantitative Branch (procedure) [code = 294647113] Future Scheduled 2020-09-17 Examination of Universit y of Test 00:00:00 retina (procedure) [facility] [code = 060825782] Branch Future Scheduled 2019-08-22 P[address]UMOCOCCAL [address]+ [facility] Test 00:00:00 YRS (2 - PCV) [code Medical Center = PNEUMOCOCCAL 65+ YRS (2 - PCV)] Future Scheduled [address] [facility] Test 00:00:00 (1 of 2) [code = Medical Alicia ter SHINGLES VACCINES (1 of 2)] Future Scheduled 1964 DTAP/TDAP/TD [facility] Test 00:00:00 VACCINES (1 - Tdap) Medical Center [code = DTAP/TDAP/TD VACCINES (1 - Tdap)] Future Scheduled [address] [facility] Test 00:00:00 SCREENING [code = Medical Ce nter HEPATITIS C SCREENING] Future Scheduled 1946-01[birth year]08 COVID-[address] [facility] Test 00:00:00 (#1) [code = Medical Center COVID-19 VACCINE (#1)] Future Scheduled 1945 DXA SCAN [code = [facility] Test 00:00:00 DXA SCAN] Medical Center Encounters Start End Encounter Admission Attending Care Care Encounter Source Date/Time Date/Time Type Type Clinicians Facility Department ID 2022-08-12 Outpatient Quintanilla, STLMLC STLC [id number] Common 08:49:02 Renee [id number] [facility] 2022-07-19 Outpatient Quintanilla, STLMLC STLC [id number] Common 09:59:03 Renee [id number] [facility] 2022-06-13 Outpatient Quintanilla, STLMLC STLC [id number] Common 14:20:01 Renee [id number] [facility] 2022-05-30 Outpatient VERONICA GUILLORY, SLE Surgery [id number] SLEH 14:09:30 PRISCILA 2022-05-30 Outpatient Quintanilla, STLMLC STLC [id number] Common 10:41:05 Renee [facility] 2021-08-06 Emergency [facility] [id number] Univers 18:30:44 ity of [facility] 2021-08-06 Emergency [facility] [id number] Univers [facility] Emergency [facility] [id number] Univers 17:26:32 [facility] 2022-06-18 2022-06-18 Outpatient [facility] [id number] [facility] 00:00:00 23:59:00 Colleg e of Medicin e 2022-06-18 2022-06-18 [facility] [id number] 10:00:00 18:37:00 Encounter [facility] 2022-06-18 2022-06-18 [facility] [id number] [facility] 10:00:00 18:37:00 [facility] 2022-06-18 2022-06-18 [facility] [id number] 11:51:00 15:12:00 [facility] 2022-05-29 2022-05-29 Office NICK GUILLORY [id number] [facility] 10:33:50 11:17:23 Visit PRISCILA AMBULATOR 350.1.13.21 College Y 0.2.7.2.686 of [id number] [facility] bree 825 e 2022-03-08 2022-03-08 Outpatient Justina WHITEHEAD [facility] [id number] Univers 11:00:00 11:00:00 DIANE [facility] 2022-01-28 2022-01-28 [facility] 1.2.840.114 [id number] Univers 00:00:00 00:00:00 Wondiful A HEALTH 350.1.13.10 ity [facility] 4.2.7.2.686 Alber as KHURRAM?BLEA [phone] Nd yesi [address] MEDICAL OFFICE BUILDING 2021-12-25 2021-12-25 Outpatient Justina WHITEHEAD [facility] [id number] Univers 11:15:00 11:15:00 DIANE [facility] 2021-11-09 2021-11-09 [facility] 1.2.840.114 [id number] Univers 00:00:00 00:00:00 Management Wondiful A HEALTH 350.1.13.10 ity of [place] 4.2.7.2.686 Alber as KHURRAM?BLEA [id number] Nd yesi MOY 044 [facility] OFFICE [facility] 2021-11-07 2021-11-07 Charge Aide Lab, Ang - Db [facility] 1.2.840.1 14 [id number] Univers 10:30:00 11:08:15 Visit Gregoria Underwoodful A HEALTH 350.1.13.1 0 ity of [place] 4.2.7.2.686 Alber as KHURRAM?BLEA [id number] [facility] MOY 353 [facility] OFFICE [facility] 2021-11-07 2021-11-07 Charge Aide Lab, Ang Db [facility] 1.2.840.1 14 [id number] [facility] 10:30:00 10:45:00 Visit Gregoria Underwoodful A HEALTH 350.1.13.1 0 ity of [place] 4.2.7.2.686 Alber as KHURRAM?BLEA [id number] Nd yesi MOY 353 [facility] OFFICE [facility] 2021-11-07 2021-11-07 [facility] [id number] Univers 10:30:00 10:30:00 WONDIFUL ity o f [facility] 2021-11-07 2021-11-07 [facility] [id number] Univers 10:30:00 10:30:00 WONDIFUL ity o f [facility] 2021-11-07 2021-11-07 [facility] 1.2.840.114 [id number] Univers 10:00:00 10:26:57 Visit Wondiful A HEALTH 350.1.13.10 ity of [place] 4.2.7.2.686 Alber as KHURRAM?BLEA [phone] Nd yesi MOY [address] [place] [address] OFFICE [facility] 2021-10-23 2021-10-23 [facility]ill [facility] 1.2.840.114 [id number] Univers 00:00:00 00:00:00 Wondiful A HEALTH 350.1.13.10 ity of [place] 4.2.7.2.686 Alber as KHURRAM?BLEA [id number] Nd yesi MOY [address] [place] [address] OFFICE [facility] 2021-09-03 2021-09-03 Telephone [facility] 1.2.840.114 [id number] Univers 00:00:00 00:00:00 Wondiful A HEALTH 350.1.13.10 ity of [place] 4.2.7.2.686 Alber as KHURRAM?BLEA [phone] [address] 2021-08-28 2021-08-28 Out[facility] [id number] Univers 10:30:00 10:30:00 WONDIFUL ity o f [facility] 2021-08-28 2021-08-28 Outpatient [facility] [id number] Univers 10:30:00 10:30:00 WONDIFUL ity o f [facility] 2021-08-21 2021-08-21 [facility] 1.2.840.114 [id number] Univers 00:00:00 00:00:00 Peter ILANA 350.1.13.10 i ty of [place] 4.2.7.2.686 [place] PROFESS[place] [phone] [address] 2021-08-21 2021-08-21 [facility] 1.2.840.114 [id number] Univers 00:00:00 00:00:00 Wondiful A HEALTH 350.1.13.10 ity of [place] 4.2.7.2.686 Alber as KHURRAM?BLEA [phone] [facility] JULI[address] OFFICE [facility] 2021-08-21 2021-08-21 [facility] 1.2.840.114 [id number] Univers 00:00:00 00:00:00 Wondiful A HEALTH 350.1.13.10 ity of [place] 4.2.7.2.686 Alber as KHURRAM?BLEA [phone] [facility] JULI[address] 2021-08-16 2021-08-16 Telephone [facility] 1.2.840.114 [id number] Univers 00:00:00 00:00:00 Wondiful A HEALTH 350.1.13.10 ity of [place] 4.2.7.2.686 Alber as KHURRAM?BLEA [id number] Nd yesi MOY [address] [place] MEDICAL OFFICE [facility] 2021-08-11 2021-08-11 Case [facility] 1.2.840.114 [id number] Univers 00:00:00 00:00:00 Management Wondiful A HEALTH 350.1.13.10 ity of [place] 4.2.7.2.686 Alber as KHURRAM?BLEA [id number] Nd yesi MOY [address] [place] MEDICAL OFFICE [facility] 2021-08-02 2021-08-02 [facility] 1.2.854.611 [id number] Univers 11:00:00 23:59:00 Encounter Wondiful A HEALTH 350.1.13.10 ity of [place] 4.2.7.2.686 Alber as KHURRAM?BLEA [id number] Nd yesi MOY 809 [facility] OFFICE [facility] 2021-08-02 2021-08-02 Charge Aide Lab, Ang - Db [facility] 1.2.840.1 14 [id number] Univers 11:49:21 12:32:41 Visit Suman Underwood HEALTH 350.1.13.1 0 ity of [place] 4.2.7.2.686 Alber as KHURRAM?BLEA [id number] Nd yesi MOY 353 [facility] OFFICE [facility] 2021-08-02 2021-08-02 Outpatient R KJ [facility] [id number] Univers 11:45:00 12:32:41 WONDIFUL ity o f [facility] 2021-08-02 2021-08-02 Outpatient R KJ [facility] [id number] Univers 11:45:00 11:45:00 WONDIFUL ity o f [facility] 2021-08-02 2021-08-02 Outpatient R KJ [facility] [id number] Univers 11:00:00 11:44:39 WONDIFUL ity o f [facility] 2021-08-02 2021-08-02 Office [facility] 1.2.840.114 [id number] Univers 10:37:01 11:44:39 Visit Wondiful A HEALTH 350.1.13.10 ity of [place] 4.2.7.2.686 Alber as KHURRAM?BLEA [id number] [facility] 044 [facility] OFFICE [facility] 2021-08-02 2021-08-02 Telephone [facility] 1.2.840.114 [id number] Univers 00:00:00 00:00:00 Wondiful A HEALTH 350.1.13.10 ity [facility] 4.2.7.2.686 Alber as KHURRAM?BLEA [id number] [address] OFFICE [facility] 2021-07-30 2021-07-30 Outpatient R LOTTIE, [facility] [id number] Univers 11:00:00 11:00:00 SENDIL ity of [facility] 2021-07-24 2021-07-24 Charge Aide Ted, Adc Lab Main [facility] 1.2.8 40.114 [id number] Univers 12:02:05 12:17:05 Visit Marion Vu 350.1.13.10 ity of [place] 4.2.7.2.686 [place] [facility] [phone] [address] 2021-07-24 2021-07-24 Outpatient R JANINE MENEZES, [facility] [id number] Univers 12:00:00 12:00:00 MARION roldan of [facility] 2021-07-24 2021-07-24 Orders Doctor QUINTERO 1.2.840.114 [id number] Univers 00:00:00 00:00:00 Only Unassigned, ONESIMO 350.1.13.10 ity of [place] [facility] 4.2.7.2.686 Alber as [id number] [facility] [address] [place] 2021-07-22 2021-07-22 Emergency [facility] 1.2.409.643 [id number] Univers 14:26:00 16:01:00 Nilo Burrows 350.1.13.10 i ty of [place] 4.2.7.2.686 [place] [phone] [facility] [address] [place] 2021-07-22 2021-07-22 Emergency X MADAN, [facility] ERT [id number] Univers 14:26:00 16:01:00 NILO ity of [facility] 2021-07-22 2021-07-22 Orders Doctor INGRID 1.2.840.114 [id number] Univers 00:00:00 00:00:00 Only Unassigned, ONESIMO 350.1.13.10 ity of [place] [facility] 4.2.7.2.686 Alber as [phone] [facility] [address] [place] 2021-07-19 2021-07-19 [facility] 1.2.840.114 [id number] Univers 00:00:00 00:00:00 Wondiful A Health 350.1.13.10 ity of [place] 4.2.7.2.686 Alber as Khurram?Blea [phone] [address] Medical Office [facility] 2021-07-19 2021-07-19 [facility] 1.2.840.114 [id number] Univers 00:00:00 00:00:00 Wondiful A [place] 350.1.13.10 ity of [place] 4.2.7.2.686 [place] [phone] [address] 2021-06-12 2021-06-12 Outpatient BRODY CARCAMO [facility] [id number] Univers 10:00:00 10:00:00 ity of [facility] 2021-06-12 2021-06-12 Outpatient BRODY CARCAMO [facility] [id number] Univers 10:00:00 10:00:00 ity of [facility] 2021-06-12 2021-06-12 Transition Tessa Mohamud 1.2.840.114 [id number] Univers 00:00:00 00:00:00 of Care Sandra Chavez 350.1.13.10 i ty of [place] 4.2.7.2.686 [place] [phone] [facility] [address] [place] 2021-06-01 2021-06-10 [facility] Last [place] 1.2.840.1 [id number] Univers 08:59:00 16:00:00 Encounter Tramaine Monique 350.1.13.10 ity of [place] [facility] 4.2.7.2.68 6 [place] Yamilet Humphreys [id number] Medical 089 Branch 2021-06-01 2021-06-01 Travel 1.2.840.1 1.2.397.467 [id number] Univers 00:00:00 00:00:00 79898.1.1 350.1.13.10 ity of 3.104.2.7 4.2.7.3.698 [facility] .3.396586 084.8 Medica l .[address] [place] 2021-05-30 2021-05-30 Telephone Farideh 1.2.840.9 [id number] Univers 00:00:00 00:00:00 Migdalia Rowley 98683.1.1 ity of 3.104.2.7 [place] .3.365046 Medica l .8 [place] 2021-05-28 2021-05-28 [facility] [id number] Univers 13:00:00 13:00:00 WONDIFUL ity o f [facility] 2021-05-24 2021-05-24 Office Jyoti, 1.2.840.6 [id number] Univers 14:54:06 15:33:35 Visit Praveena 12098.1.1 ity of 3.104.2.7 [place] .3.240731 Medica l .8 [place] 2021-05-24 2021-05-24 Outpatient R JYOTI [facility] [id number] Univers 15:00:00 15:00:00 PRAVEENA itquentin of [facility] 2021-05-24 2021-05-24 Outpatient R PATRICIA RODRÍGUEZ [facility] [id number] Univers 11:00:00 11:00:00 PATRICIA RODRÍGUEZ i ty of [facility] 2021-05-24 2021-05-24 Travel 1.2.840.1 [id number] [id number] Univers 00:00:00 00:00:00 55731.1.1 350.1.13.10 ity of 3.104.2.7 4.[place].7.3.698 [place] .3.682534 084.8 Medica l .8 [place] 2021-05-22 2021-05-22 Outpatient Justina SMITH [facility] [id number] Univers 15:00:00 15:00:00 PRAVEENA ity of [facility] 2021-05-21 2021-05-21 Telephone Kj, 1.2.840.9 [id number] Univers 00:00:00 00:00:00 Wondiful A 20266.1.1 i ty of 3.104.2.7 [place] .3.855400 Medica l .8 [place] 2021-05-16 2021-05-16 Orders Doctor 1.2.840.2 [id number] Univers 00:00:00 00:00:00 Only Unassigned, 15405.1.1 ity of [place] 3.104.2.7 [place] .3.534520 Medica l .8 [place] 2021-05-15 2021-05-15 Transition Cade, 1.2.840.4 [id number] Univers 00:00:00 00:00:00 of Jennifer Sandra L 89218.1.1 ity of 3.104.2.7 [place] .3.779882 Medica l .8 [place] 2021-05-10 2021-05-13 [facility] Last [place] 1.2.840.1 [id number] Univers 11:59:00 14:00:00 Encounter Tramaine Monique 67762.1.1 ity of 3.104.2.7 [place] .3.462077 Medica l .8 [place] 2021-05-10 2021-05-10 Travel 1.2.840.1 1.2.717.760 [id number] Univers 00:00:00 00:00:00 57861.1.1 350.1.13.10 ity of 3.104.2.7 [place].3.698 [place] .3.214356 084.8 Medica l .8 Branch 2021-05-10 2021-05-10 Orders Doctor 1.2.840.7 [id number] Univers 00:00:00 00:00:00 Only Unassigned, 04280.1.1 ity of [place] 3.104.2.7 [place] .3.107017 Medica l .8 Branch 2021-04-30 2021-04-30 Orders Doctor 1.2.840.1 [id number] Univers 00:00:00 00:00:00 Only Unassigned, 42232.1.1 ity of [place] 3.104.2.7 [place] .3.995137 Medica l .8 Branch 2021-04-30 2021-04-30 Telephone Lottie, 1.2.840.8 [id number] Univers 00:00:00 00:00:00 Sendelgin Jordan 29500.1.1 ity of 3.104.2.7 [place] .3.698892 Medica l .[place] 2021-04-27 2021-04-27 Office Kj, 1.2.840.7 [id number] Univers 13:03:32 14:05:28 Visit Wondiful A 85334.1.1 i ty of 3.104.2.7 [place] .3.264871 Medica l .8 [place] 2021-04-27 2021-04-27 Outpatient R KJ [facility] [id number] Univers 13:00:00 13:00:00 WONDIFUL ity o f [facility] 2021-04-27 2021-04-27 Travel 1.2.840.1 1.2.470.601 [id number] Univers 00:00:00 00:00:00 00310.1.1 350.1.13.10 ity of 3.104.2.7 [place].3.698 [place].5056[place] 084.8 Medica l .8 [place] 2021-04-03 2021-04-03 Outpatient R LOTTIE [facility] [id number] Univers 13:00:00 13:00:00 SENDIL ity [facility] [place] [facility] 2021-04-03 2021-04-03 Outpatient R LOTTIE [facility] [id number] Univers 13:00:00 13:00:00 SENDIL ity [facility] [place] [facility] 2021-03-28 2021-03-28 Office Lottie, 1.2.840.6 [id number] Univers 11:05:15 11:39:40 Visit Sendil K.HKeith 79136.1.1 ity of 3.104.2.7 [place] .3.212298 Medica l .[place] 2021-03-28 2021-03-28 [facility] [id number] Univers 11:00:00 11:00:00 SENDIL ity [facility] [place] [facility] 2021-03-28 2021-03-28 Travel 1.2.840.1 1.2.320.752 [id number] Univers 00:00:00 00:00:00 60447.1.1 350.1.13.10 ity of 3.104.2.7 [place].3.698 [place].5090[place] 084.8 Medica l .8 [place] 2021-03-27 2021-03-27 Refanahi Underwood, 1.2.840.6 [id number] Univers 00:00:00 00:00:00 Wondiful A 44869.1.1 i ty of 3.104.2.7 [place] .3.939199 Medica l .8 [place] 2021-03-26 2021-03-26 Refanahi Underwood, 1.2.840.0 [id number] Univers 00:00:00 00:00:00 Wondiful A 29968.1.1 i ty of 3.104.2.7 [place] .3.703290 Medica l .8 [place] 2021-03-09 2021-03-09 Outpatient Justina TAFOYA [facility] [id number] Univers 11:00:00 11:00:00 SENDIL ity [facility] [place] [facility] 2021-03-09 2021-03-09 Outpatient Justina TAFOYA [facility] [id number] Univers 11:00:00 11:00:00 SENDIL ity [facility] [place] [facility] 2021-02-27 2021-02-27 Outpatient R KJ [facility] [id number] Univers 16:30:00 16:30:00 WONDIFUL ity o f [facility] 2021-02-15 2021-02-15 Outpatient R LOTTIE [facility] [id number] Univers 11:00:00 11:00:00 SENDIL ity [facility] [place] [facility] 2021-02-15 2021-02-15 Outpatient R TAFOYA [facility] [id number] Univers 11:00:00 11:00:00 SENDIL ity [facility] [place] [facility] 2021-01-25 2021-01-25 Outpatient R PATRICIA RODRÍGUEZ [facility] [id number] Univers 10:30:00 11:33:46 PATRICIA RODRÍGUEZ i ty of [facility] 2021-01-25 2021-01-25 Outpatient R PATRICIA RODRÍGUEZ [facility] [id number] Univers 10:30:00 10:30:00 PATRICIA RODRÍGUEZ i ty [facility] [place] [facility] 2021-01-23 2021-01-23 Outpatient R LOTTIE [facility] [id number] Univers 10:00:00 10:00:00 SENDIL ity [facility] [place] [facility] 2020-12-29 2020-12-29 Outpatient R LOTTIE [facility] [id number] Univers 11:30:00 11:30:00 SENDIL ity [facility] [place] [facility] 2020-12-28 2020-12-28 Outpatient R KJ [facility] [id number] Univers 14:00:00 14:00:00 WONDIFUL ity o f [facility] 2020-12-05 2020-12-05 Outpatient BRODY CARCAMO [facility] [id number] Univers 10:00:00 10:00:00 ity [facility] [place] [facility] 2020-11-29 2020-11-29 Outpatient BRODY CARCAMO [facility] [id number] Univers 00:00:00 00:00:00 ity [facility] [place] [facility] 2020-11-22 2020-11-22 Outpatient BRODY CARCAMO [facility] [id number] Univers 00:00:00 00:00:00 ity [facility] [place] [facility] 2020-11-17 2020-11-17 Outpatient R LOTTIE [facility] [id number] Univers 14:30:00 14:30:00 [facility]14 2020-11-14 Outpatient R BRODY PLAZA [facility] [id number] Univers 13:45:00 13:45:00 ity [facility] [place] [facility] 2020-10-27 2020-10-27 Outpatient R KJ, [facility] [id number] Univers 11:15:00 11:15:00 WONDIFUL ity o f [facility] 2020-09-22 2020-09-22 Outpatient R MICHAEL [facility] [id number] Univers 16:00:00 16:00:00 [facility] 2020-09-18 2020-09-18 Outpatient R ELKEBECKIE [facility] [id number] Univers 13:30:00 13:30:00 ity [facility] [place] [facility] 2020-09-05 2020-09-05 Outpatient R REYES, [facility] [id number] Univers 14:30:00 15:53:51 RENEE [facility] 2020-09-05 2020-09-05 Outpatient R AMY [facility] [id number] Univers 14:30:00 14:30:00 RENEE itquentin [facility] [place] [facility] 2020-08-09 2020-08-09 Outpatient R KJ, [facility] [id number] Univers 09:20:21 23:59:00 WONDIFUL ity o f [facility] 2020-08-09 2020-08-09 Outpatient R KJ, [facility] [id number] Univers 00:00:00 00:00:00 WONDIFUL ity o f [facility] 2020-08-03 2020-08-03 Outpatient R KJ [facility] [id number] Univers 11:15:00 11:15:00 WONDIFUL ity o f [facility] 2020-07-17 2020-07-17 Outpatient R KJ [facility] [id number] Univers 11:00:00 11:00:00 WONDIFUL ity o f [facility] 2020-07-17 2020-07-17 [facility] 1.2.840.114 [id number] 00:00:00 00:00:00 Wondiful A [facility] 350.1.13.10 [place] 4.2.7.2.686 Professio [phone] [place] [address] [address] 2020-07-12 2020-07-12 [place] [facility] 1.2.840.114 [id number] 00:00:00 00:00:00 Wondiful A [facility] 350.1.13.10 [place] 4.2.7.2.686 Professio [phone] [place] [address] [address] 2020-07-11 2020-07-11 [facility] 1.2.840.114 [id number] 00:00:00 00:00:00 Wondiful A Health 350.1.13.10 [place] 4.2.7.2.686 Professio [phone] [place] [address] [address] One 2020-06-28 2020-06-28 [place] [facility] 1.2.840.114 [id number] 00:00:00 00:00:00 Wondiful A [facility] 350.1.13.10 [place] 4.2.7.2.686 Professio [phone] [place] [address] Office [facility] One 2020-06-27 2020-06-27 Outpatient [facility] [id number] Univers 15:00:00 15:00:00 WONDIFUL ity o f [facility] 2020-05-11 2020-05-27 Inpatient Dabaghi, HCAPM LABO [id number] [facility] 15:00:00 08:02:06 Salim 30 [facility] 2020-05-27 2020-05-20 Inpatient EL Donnyema, HCAWU SURG [id number] [facility] 11:30:00 07:00:00 Salim 60 [facility] 2020-04-28 2020-04-28 [place] [facility] 12.840.114 [id number] 00:00:00 00:00:00 [place]iful A [place] 350.1.13.10 [place] 4.2.7.2.686 Professio [phone] [address] 2020-04-28 2020-04-28 Orders Doctor INGRID 1.2.840.114 [id number] 00:00:00 00:00:00 Only Unassigned, ONESIMO 350.1.13.10 [place] [facility] 4.2.7.2.686 [id number] [id number] 2020-04-21 2020-04-21 [facility] 1.2.840.114 [id number] 00:00:00 00:00:00 [place]iful A [place] 350.1.13.10 [place] 4.2.7.2.686 Professio [phone] [address] 2020-04-20 2020-04-20 Orders Doctor INGRID 1.2.840.114 [id number] 00:00:00 00:00:00 Only Unassigned, ONESIMO 350.1.13.10 [place] [facility] 4.2.7.2.686 [id number] 2020-04-14 2020-04-14 [facility] 1.2.840.114 [id number] 00:00:00 00:00:00 W[facility]iful A [facility] 350.1.13.10 [place] 4.2.7.2.686 Professio [phone] [address] One 2020-03-30 2020-03-30 [facility] 1.2.840.114 [id number] 00:00:00 00:00:00 Wondiful A [place] 350.1.13.10 [place] 4.2.7.2.686 Professio [phone] [address] 2020-02-15 2020-02-15 [facility]ici [facility] 1.2.840.114 [id number] 07:17:35 09:48:52 ne Visit Wondiful A [place] 350.1.13.10 [place] 4.2.7.2.686 Professio [phone] [address] 2020-02-15 2020-02-15 Outpatient R KJ [facility] [id number] Univers 09:00:00 09:00:00 WONDIFUL ity o f [facility] 2020-01-27 2020-01-27 Telephone Kj [facility] 1.2.840.114 [id number] 00:00:00 00:00:00 Wondiful A Health 350.1.13.10 [place] 4.2.7.2.686 Professio [phone] nal [address] [facility] One 2020-01-12 2020-01-12 Emergency [facility] 1.2.464.206 [id number] 15:43:26 16:46:00 Last [place] 350.1.13.10 [place] 4.2.7.2.686 [place] [id number] 084 2020-01-12 2020-01-12 Emergency X SINGER [facility] ERT [id number] Univers 15:43:26 16:46:00 [facility] 2020-01-09 2020-01-09 Outpatient R [facility] [id number] Univers 11:00:00 11:00:00 [facility] 2020-01-08 2020-01-08 [facility] [id number] Univers 17:00:00 17:00:00 FELY [facility] 2019-12-15 2019-12-15 [facility] [id number] Univers 13:00:00 13:00:00 JOEY [facility] 2019-12-05 2019-12-05 [facility] 1.2.840.114 [id number] 00:00:00 00:00:00 Management [facility] 350.1.13.10 [place] 4.2.7.2.686 [facility] [phone] [address] One 2019-12-02 2019-12-02 Out[facility] R [facility] [id number] Univers 11:30:00 11:30:00 WONDIFUL ity o f [facility] 2019-11-30 2019-11-30 Outpatient R KJ [facility] [id number] Univers 10:08:46 23:59:00 WONDIFUL ity o f [facility] 2019-11-30 2019-11-30 Outpatient R KJ [facility] [id number] Univers 00:00:00 00:00:00 WONDIFUL ity o f [facility] 2019-11-26 2019-11-26 Outpatient R KJ [facility] [id number] Univers 10:30:00 10:23:01 SUMAN villa [facility] 2019-11-26 2019-11-26 Office Kj [facility] 1.2.840.114 [id number] 09:35:51 10:23:01 Visit Suman Rowley [facility] 350.1.13.10 [place] 4.2.7.2.686 Professio [phone] nal 044 Office Building One Results Test Description Test Time Test Comments Results Result Comments Source POC-Glucose meter 2022-06-18 16:06:35 Test Item Value Reference Range Interpretation Comme nts POC-Glucose Meter (test code = 202 mg/dL 70-110 H : TESTED AT [facility] [address]) [facility], 770 30: Dental Tech/Techni anna ID = [id number] for MADDIE LESLIE Lab Interpretation (test code = Abnormal 82799-1) [facility] [id number] 16:06:35 Test Item Value Reference Range Interpretation Comments POC-GLUCOSE METER 202 mg/dL 70-110 H : [facility] (BEAKER) (test code = BERTNE R [facility], 1538) [address]: Dental Tech/Techni anna ID = [id number] for LESLIE BLOCK BASIC METABOLIC [id number] 12:33:29 Test Item Value Reference Range Interpretation Comments SODIUM (BEAKER) 138 meq/L 136-145 (test code = 381) POTASSIUM 4.8 meq/L 3.5-5.1 Specimen slight ly (BEAKER) (test hemolyzed code = 379) CHLORIDE (BEAKER) 107 meq/L 98-107 (test code = 382) CO2 (BEAKER) 19 meq/L 22-29 L (test code = 355) BLOOD UREA 31 mg/dL 7-21 H NITROGEN (BEAKER) (test code = 354) CREATININE 1.73 mg/dL 0.57-1.25 H Specimen slight ly (BEAKER) (test hemolyzed code = 358) GLUCOSE RANDOM 247 mg/dL 70-105 H (BEAKER) (test code = 652) CALCIUM (BEAKER) 8.9 mg/dL 8.4-10.2 (test code = 697) EGFR (BEAKER) 30 Interpretatio n of eGFR (test code = mL/min/1.73 values Stage De scription 1092) sq m Result G1 Ruth l or high >=90 G2 Mildly decreased 60-89 G3a Mildl y to moderately 45-5 9 G3b Moderately to s everely 30-44 G4 Severl y decreased 15-29 G5 Kidney failure <15Reported eGF R is based on the CKD-EPI 2021 equation that d oes not use a race coefficientEsti mated GFR is not as accur ate as Creatinine Kathe lacey in predicting glom erular filtration rate . Estimated GFR is not appl icable for dialysis patien ts Dental Tech ID - SILAS [id number] 12:28:05 Test Item Value Reference Range Interpretation Comments PARTIAL THROMBOPLASTIN TIME 29.0 seconds 22.5-36.0 (BEAKER) (test code = 760) PROTHROMBIN [id number] 12:27:26 Test Item Value Reference Range Interpretation Comments PROTIME (BEAKER) 14.5 seconds 11.9-14.2 H (test code = 759) INR (BEAKER) (test 1.20 See_Comment [Automat ed message] code = 370) The system Certalia generated this result transmitted ref erence range: <=5.90. The reference range was not used to int erpret this result as normal/abnormal . RECOMMENDED COUMADIN/WARFARIN INR THERAPY RANGESSTANDARD DOSE: 2.0 - 3.0 Includes: PROPHYLAXIS for venous thrombosis, systemic embolization; TREATMENT for venous thrombosis and/or pulmonary embolus.HIGH RISK: Target INR is 2.5-3.5 for patients with mechanical heart valves.CBC W/PLT COUNT & AUTO [id number] 12:20:06 Test Item Value Reference Range Interpretation Comments WHITE BLOOD CELL COUNT (BEAKER) 3.4 K/ L 3.5-10.5 L (test code = 775) RED BLOOD CELL COUNT (BEAKER) 3.25 M/ L 3.93-5.22 L (test code = 761) HEMOGLOBIN (BEAKER) (test code = 10.4 GM/DL 11.2-15.7 L 410) HEMATOCRIT (BEAKER) (test code = 32.6 % 34.1-44.9 L 411) MEAN CORPUSCULAR VOLUME (BEAKER) 100.3 fL 79.4-94.8 H (test code = 753) MEAN CORPUSCULAR HEMOGLOBIN 32.0 pg 25.6-32.2 (BEAKER) (test code = 751) MEAN CORPUSCULAR HEMOGLOBIN CONC 31.9 GM/DL 32.2-35.5 L (BEAKER) (test code = 752) RED CELL DISTRIBUTION WIDTH 12.3 % 11.7-14.4 (BEAKER) (test code = 412) PLATELET COUNT (BEAKER) (test 135 K/CU MM 150-450 L code = 756) MEAN PLATELET VOLUME (BEAKER) 10.8 fL 9.4-12.3 (test code = 754) NUCLEATED RED BLOOD CELLS 0 /100 WBC 0-0 (BEAKER) (test code = 413) NEUTROPHILS RELATIVE PERCENT 38 % (BEAKER) (test code = 429) LYMPHOCYTES RELATIVE PERCENT 40 % (BEAKER) (test code = 430) MONOCYTES RELATIVE PERCENT 17 % (BEAKER) (test code = 431) EOSINOPHILS RELATIVE PERCENT 3 % (BEAKER) (test code = 432) BASOPHILS RELATIVE PERCENT 1 % (BEAKER) (test code = 437) NEUTROPHILS ABSOLUTE COUNT 1.29 K/ L 1.56-6.13 L (BEAKER) (test code = 670) LYMPHOCYTES ABSOLUTE COUNT 1.37 K/ L 1.18-3.74 (BEAKER) (test code = 414) MONOCYTES ABSOLUTE COUNT (BEAKER) 0.60 K/ L 0.24-0.36 H (test code = 415) EOSINOPHILS ABSOLUTE COUNT 0.11 K/ L 0.04-0.36 (BEAKER) (test code = 416) BASOPHILS ABSOLUTE COUNT (BEAKER) 0.02 K/ L 0.01-0.08 (test code = 417) IMMATURE GRANULOCYTES-RELATIVE 2 % 0-1 H PERCENT (BEAKER) (test code = 2801) POCT-GLUCOSE [id number] 11:30:29 Test Item Value Reference Range Interpretation Comments POC-GLUCOSE METER 233 mg/dL 70-110 H : TESTED A T [facility] 6720 (BEAKER) (test code = DALILA NELSON, 1538) [address]: Dental Tech/Techni anna ID = [id number] for CR IDALIA MORATAYA COMPREHENSIVE METABOLIC [id number] 05:31:58 Test Item Value Reference Range Interpretation Comments GLUCOSE (test code = 165 MG/DL 70-99 H 2216) BUN (test code = 32 MG/DL 8-23 H 2207) CREATININE (test 1.52 MG/DL 0.60-1.30 H code = 2214) eGFR (2020 CKD-EPI) 35 >60 L (test code = 60995) ML/MIN/1.73 CALC BUN/CREAT (test 21 RATIO 6-28 code = 2235) SODIUM (test code = 145 MEQ/L 074-827 2686) POTASSIUM (test code 4.7 MEQ/L 3.5-5.4 = 2227) CHLORIDE (test code 107 MEQ/L 95-107 = 2214) CARBON DIOXIDE (test 25 MEQ/L 19-31 code = 220) CALCIUM (test code = 9.1 MG/DL 8.5-10.5 2208) PROTEIN, TOTAL (test 6.2 G/DL 6.1-8.3 code = 222) ALBUMIN (test code = 4.0 G/DL 3.5-5.2 2200) CALC GLOBULIN (test 2.2 G/DL 1.9-3.7 code = 2240) CALC A/G RATIO (test 1.8 RATIO 1.0-2.6 code = 2234) BILIRUBIN, TOTAL 0.3 MG/DL See_Comment [Automated message] (test code = 2207) The syste m which generated this result transmitted ref erence range: <=1.2. T he reference range was not used to int erpret this result as normal/abnormal . ALKALINE PHOSPHATASE 121 U/L 40-142 (test code = 2204) AST (test code = 18 U/L 9-40 2217) ALT (test code = 40 U/L 5-40 UNLESS OTH ERWISE 2218) INDICATED, ALL TESTING PERFORM ED [facility], I [place]. [address] [place] [address] [facility] DIRECTOR: MICHAEL BOLAÑOS M.D. CLIA NUMBER [id number] CAP ACCREDITATION N O. [id number] HEMOGLOBIN [id number] 04:17:53 Test Item Value Reference Range Interpretation Comments HEMOGLOBIN A1c (test 9.7 % 4.2-5.6 H AMERIC AN DIABETES code = 30735) ASSOCIATION IDELINES FOR HGB A1C: PREDIABETES/INC REASED RISK . . . . . . . 5.7 -6.4% DIAGNOSIS OF DI ABETES . . . . . . . . . >=6 .5% WITH CONFIRMATION OR APPROPRIATE SYMPTOMS NOTE: ASSAY MAY BE AFFECTED BY HEMOGLOBINOPATH IES (SICKLE CELL ANEMIA, S- C DISEASE, OTHERS) OR TRACI FICIALLY LOWERED BY DECR EASED RED CELL SURVIVAL ( HEMOLYTIC ANEMIAS, BLOOD LOSS, ETC.). CONSIDER ALTERN ATE TESTING OR LABORATORY C ONSULTATION. CBC W/AUTO DIFF WITH [id number] 02:35:56 Test Item Value Reference Range Interpretation Comments WBC (test code = 8.0 K/UL 3.5-11.0 1001) RBC (test code = 3.48 M/UL 3.80-5.40 L 1002) HEMOGLOBIN (test code 10.6 G/DL 11.5-15.5 L = 1003) HEMATOCRIT (test code 31.5 % 34.0-45.0 L = 1004) MCV (test code = 90.5 fL 80.0-99.0 1005) MCH (test code = 30.5 PG 25.0-33.0 1006) MCHC (test code = 33.7 G/DL 31.0-36.0 1007) RDW (test code = 15.4 % 11.5-15.0 H 1038) NEUTROPHILS (test 52.1 % code = 1008) LYMPHOCYTES (test 29.7 % code = 1010) MONOCYTES (test code 15.4 % = 1011) EOSINOPHILS (test 0.4 % code = 1012) BASOPHILS (test code 0.4 % = 1013) IMMATURE GRANULOCYTES 2.0 % (test code = 1036) NUCLEATED RBCS (test 0.0 /100 WBC'S See_Comment [Aut omated code = 1065) message] The sy stem which generated this result transmitted reference range : 0.0. The refere nce range was not u sed to interpret th is result as normal/abnormal . PLATELET COUNT (test 155 K/UL 130-400 code = 1015) ABSOLUTE NEUTROPHILS 4.15 K/UL 1.50-7.50 (test code = 1066) ABSOLUTE LYMPHOCYTES 2.37 K/UL 1.00-4.00 (test code = 1067) ABSOLUTE MONOCYTES 1.23 K/UL 0.20-1.00 H (test code = 1068) ABSOLUTE EOSINOPHILS 0.03 K/UL 0.00-0.50 (test code = 1040) ABSOLUTE BASOPHILS 0.03 K/UL 0.00-0.20 (test code = 1069) ABS IMMATURE 0.16 K/UL 0.00-0.10 H GRANULOCYTES (test code = 1020) ABS NUCLEATED RBCS 0.00 K/UL 0.00-0.11 (test code = 34926) COMP. METABOLIC PANEL (86883)2021-11-07 22:52:27 Test Item Value Reference Range Interpretation Comments NA (test code = 142 mmol/L 135-145 3102095913) K (test code = 5.5 mmol/L 3.5-5.0 H 4215160036) CL (test code = 115 mmol/L 98-108 H 0207016862) CO2 TOTAL (test code = 19 mmol/L 23-31 L 5654360840) AGAP (test code = 2-16 9867845959) BUN (test code = 56 mg/dL 7-23 H 7155772525) GLUCOSE (test code = 53 mg/dL 70-110 L 6698439371) CREATININE (test code = 1.45 mg/dL 0.50-1.04 H 9805711850) TOTAL BILI (test code = 0.6 mg/dL 0.1-1.7 4713353750) CALCIUM (test code = 8.9 mg/dL 8.6-10.6 3060763714) T PROTEIN (test code = 6.3 g/dL 6.3-8.2 3804336326) ALBUMIN (test code = 3.8 g/dL 3.5-5.0 6055087484) ALK PHOS (test code = 74 U/L 34-122 1543081393) ALTv (test code = 40 U/L 5-35 H 1742-6) AST(SGOT) (test code = 32 U/L 13-40 0635718621) eGFR (test code = mL/min/1.73m2 9657438712) JUAN (test code = JUAN) Association of Glomerular Filtration Rate (GFR) and Staging of Kidney Disease* + --+ --+ ------+| GFR (mL/min/1.73 m2) ?| With Kidney Damage ?| ?Without Kidney Damage+ --------+ --------+ +| ?>90 ?| ?Stage one ?| ? Normal ?+ ---+ ---+ -------+| ?60-89 ?| ?Stage two ?| ? Decreased GFR ? + --+ --+ ------+| ?30-59 ?| ?Stage three ?| ? Stage three ? + --+ --+ ------+| ?15-29 ?| ?Stage four ? | ? Stage four ?+ ---+ ---+ -------+| ?<15 (or dialysis) ? ?| ?Stage five ? | ? Stage five ?+ ---+ ---+ -------+ *Each stage assumes the associated GFR [...] or abnormalities in imaging tests). Lab Interpretation Abnormal (test code = 01219-7) [facility] WITHOUT [id number] 20:09:26 Test Item Value Reference Range Interpretation Comments WBC (test code = 6690-2) See_Comment [A utomated message] The system [employer] generated this result transmit osman reference range : 4.30 - 11.10 10*3/?L. The reference range was not used to interpret this result as normal/abnormal . RBC (test code = 789-8) See_Comment L [Au tomated message] The system [employer] generated this result transmit osman reference range [...] See_Comment L [Au tomated message] The system [employer] generated this result transmit osman reference range : 166 - 358 10*3/?L. The reference range was not used to interpret this result as normal/abnormal . MPV (test code = 10.6 fL 9.5-12.9 57904-8) RDW-CV (test code = 11.9 % 12.0-15.5 L 788-0) RDW-SD (test code = 41.6 fL 39.0-49.9 37979-6) NRBC x10^3 (test code = <0.01 See_Comment [Au tomated message] [id number]) The system [employer] generated this result transmit osman reference range : 10*3/?L. The reference range was not used to interpret this result as normal/abnormal . NRBC/100 WBC (test code See_Comment [Au tomated message] = [id number]) The system [employer] generated this result transmit osman reference range : 0.0 - 10.0 /100 WBC s. The reference r marshal was not used to interpret this result as normal/abnormal . IPF % (test code = 0012686230) Lab Interpretation (test Abnormal code = 11988-8) [id number] 10:13:00 Test Item Value Reference Range Interpretation Comments GLUCOSE BEDSIDE TESTING (test code 205 MG/DL 60-99 H = GLUBED) GLUCOSE BEDSIDE [id number] 08:55:00 Test Item Value Reference Range Interpretation Comments GLUCOSE BEDSIDE TESTING (test code 198 MG/DL 60-99 H = GLUBED) GLUCOSE BEDSIDE [id number] 04:28:00 Test Item Value Reference Range Interpretation Comments GLUCOSE BEDSIDE TESTING (test code 202 MG/DL 60-99 H = GLUBED) GLUCOSE BEDSIDE [id number] 23:36:00 Test Item Value Reference Range Interpretation Comments GLUCOSE BEDSIDE TESTING (test code 194 MG/DL 60-99 H = GLUBED) GLUCOSE BEDSIDE [id number] 19:34:00 Test Item Value Reference Range Interpretation Comments GLUCOSE BEDSIDE TESTING (test code 226 MG/DL 60-99 H = GLUBED) GLUCOSE BEDSIDE [id number] 16:40:00 Test Item Value Reference Range Interpretation Comments GLUCOSE BEDSIDE TESTING (test code 239 MG/DL 60-99 H = GLUBED) GLUCOSE BEDSIDE [id number] 13:41:00 Test Item Value Reference Range Interpretation Comments GLUCOSE BEDSIDE TESTING (test code 220 MG/DL 60-99 H = GLUBED) GLUCOSE BEDSIDE [id number] 11:47:00 Test Item Value Reference Range Interpretation Comments GLUCOSE BEDSIDE TESTING (test code 275 MG/DL 60-99 H = GLUBED) GLUCOSE BEDSIDE [id number] 09:28:00 Test Item Value Reference Range Interpretation Comments GLUCOSE BEDSIDE TESTING (test code 285 MG/DL 60-99 H = GLUBED) GLUCOSE BEDSIDE [id number] 06:09:00 Test Item Value Reference Range Interpretation Comments GLUCOSE BEDSIDE TESTING (test code 237 MG/DL 60-99 H = GLUBED) GLUCOSE BEDSIDE [id number] 20:14:00 Test Item Value Reference Range Interpretation Comments GLUCOSE BEDSIDE TESTING (test code 261 MG/DL 60-99 H = GLUBED) GLUCOSE BEDSIDE [id number] 13:10:00 Test Item Value Reference Range Interpretation Comments GLUCOSE BEDSIDE TESTING (test code 201 MG/DL 60-99 H = GLUBED) GLUCOSE BEDSIDE [id number] 08:39:00 Test Item Value Reference Range Interpretation Comments GLUCOSE BEDSIDE TESTING (test code 252 MG/DL 60-99 H = GLUBED) - XR CHEST [id number] 07:48:00 Patient Name: RUTH ANN MONTEJO Unit No: [id number] EXAMS: CPT CODE: [id number] XR CHEST 1V 08509 EXAM: Chest x-ray, 1 view Dictation location: B2 COMPARISON: Chest x-ray on 05/28/2020 INDICATION: post op surgery DISCUSSION: An endotracheal tube is in place, with tip over the trachea 7.8 cm above the lamont. Advancement by [...] of an endotracheal tube, with tip 7.8 cmabove the lamont. Advancement by 4 cm is suggested for more optimal positioning. No acute abnormalities seen. 2. Unchanged borderline cardiac silhouette enlargement, with post surgical changes of previous CABG. 3. Large right apical bulla. [id number] Reported and signed by: Mika Draper MD CC: Lisseth Salinas MD; Humberto Carter; Caridad ASHBY Technologist: RT Brady(R) Transcrpt Date/Tm/Trnsp: 05/29/2020 (0748) t.SDR.VO1Qncu Print D/T: S: 05/29/2020 (0751) [facility] NAME: RUTH ANN MONTEJO [address] [id number] [address] PHYS: [place] [address] : 1945 AGE: 74 SEX: F LOC: Z.SI12 A PHONE #: [phone] EXAM DATE: 05/29/2020 STATUS: ADM IN FAX #: [phone] RADIOLOGY NO: PAGE 1 Signed ReportBAPTIST HEALTH CORBIN W/O [id number] 06:18:00 Test Item Value Reference Range Interpretation [...] = 0.00 K/mm3 0.0-0.1 N NRBC#) WBC [id number] 06:18:00 Test Item Value Reference Range Interpretation [...] code = NORMAL NORMAL PLTMORPH) BASIC METABOLIC [id number] 05:11:00 Test Item Value Reference Range Interpretation [...] code = 7.5 MG/DL 8.4-10.2 L CA) [id number] 05:11:00 Test Item Value Reference Range Interpretation Comments MAGNESIUM (test code = MAG) 2.3 MG/DL 1.6-2.3 BASIC METABOLIC [id number] 05:00:00 Test Item Value Reference Range Interpretation [...] CALCIUM (test code = MG/DL 8.7-9.7 CA) [id number] 05:00:00 Test Item Value Reference Range Interpretation Comments MAGNESIUM (test code = MAG) MG/DL 1.6-2.3 BASIC METABOLIC [id number] 04:57:00 Test Item Value Reference Range Interpretation [...] CALCIUM (test code = CA) MG/DL 8.7-9.7 [id number] 04:57:00 Test Item Value Reference Range Interpretation Comments MAGNESIUM (test code = MAG) MG/DL 1.6-2.3 CBC W/O [id number] 04:44:00 Test Item Value Reference Range Interpretation [...] = 0.00 K/mm3 0.0-0.1 N NRBC#) WBC [id number] 04:44:00 Test Item Value Reference Range Interpretation Comments RBC MORPHOLOGY REQUIRED (test code = RBCM) TOTAL CELLS COUNTED (test code = TCC) #CELLS SEGMENTED NEUTROPHILS (test code = % 36.2-73.8 SEG) LYMPHOCYTE (test code = LYMPH) % 12.9-45.1 MONOCYTE (test code = MON) % 0-11 PLATELET ESTIMATE (test code = ADEQUATE PLTEST) PLATELET MORPHOLOGY (test code = NORMAL PLTMORPH) CBC W/AUTO [id number] 04:44:00 Test Item Value Reference Range Interpretation [...] = 0.00 K/mm3 0.0-0.1 N NRBC#) WBC [id number] 04:44:00 Test Item Value Reference Range Interpretation Comments RBC MORPHOLOGY REQUIRED (test code = RBCM) TOTAL CELLS COUNTED (test code = TCC) #CELLS SEGMENTED NEUTROPHILS (test code = % 36.2-73.8 SEG) LYMPHOCYTE (test code = LYMPH) % 12.9-45.1 MONOCYTE (test code = MON) % 0-11 PLATELET ESTIMATE (test code = ADEQUATE PLTEST) PLATELET MORPHOLOGY (test code = NORMAL PLTMORPH) GLUCOSE BEDSIDE [id number] 01:46:00 Test Item Value Reference Range Interpretation Comments GLUCOSE BEDSIDE TESTING (test code 255 MG/DL 60-99 H = GLUBED) GLUCOSE BEDSIDE [id number] 20:02:00 Test Item Value Reference Range Interpretation Comments GLUCOSE BEDSIDE TESTING (test code 240 MG/DL 60-99 H = GLUBED) GLUCOSE BEDSIDE [id number] 17:30:00 Test Item Value Reference Range Interpretation Comments GLUCOSE BEDSIDE TESTING (test code 246 MG/DL 60-99 H = GLUBED) [id number] 15:31:00 Test Item Value Reference Range Interpretation Comments POTASSIUM (test code = K) 4.7 MMOL/L 3.5-5.1 N UNABLE TO DRAW BLOOD, REASON: CBNNOTIFIED PATIENT CARE STAFF: [facility] 05/28/20 AT 1508 BY Migdalia Wallace [id number] 15:22:00 Test Item Value Reference Range Interpretation Comments HEMOGLOBIN (test code = HGB) 8.1 G/DL 11.2-14.9 L UNABLE TO DRAW BLOOD, REASON: CBNNOTIFIED PATIENT CARE STAFF: [facility] 05/28/20 AT 1508 BY Migdalia Wallace AnGLUCOSE BEDSIDE [id number] 12:24:00 Test Item Value Reference Range Interpretation Comments GLUCOSE BEDSIDE TESTING (test code 293 MG/DL 60-99 H = GLUBED) HGB [id number] 08:21:00 Test Item Value Reference Range Interpretation Comments HEMOGLOBIN (test code = HGB) 7.4 G/DL 11.2-14.9 L HEMATOCRIT (test code = HCT) 23.0 % 33.2-43.5 L CBC W/O [id number] 08:17:00 Test Item Value Reference Range Interpretation [...] = 0.00 K/mm3 0.0-0.1 N NRBC#) WBC [id number] 08:17:00 Test Item Value Reference Range Interpretation [...] code = NORMAL NORMAL PLTMORPH) GLUCOSE BEDSIDE [id number] 07:31:00 Test Item Value Reference Range Interpretation Comments GLUCOSE BEDSIDE TESTING (test code 279 MG/DL 60-99 H = GLUBED) GLUCOSE BEDSIDE [id number] 07:07:00 Test Item Value Reference Range Interpretation Comments GLUCOSE BEDSIDE TESTING (test code 222 MG/DL 60-99 H = GLUBED) BASIC METABOLIC [id number] 06:39:00 Test Item Value Reference Range Interpretation [...] 312 MG/DL 74-106 HH CALLED TO RAY OKeith & GLU) READBACK ON AT 0637 BY Favian Anderson BLOOD UREA NITROGEN 26 MG/DL 7-17 H (test code = BUN) GLOMERULAR FILTRATION 40 Report ing units: RATE (test code = GFR) ml/mi n/1.73 m2 (Modified MDRD Formula)Referen ce Range: > or = 6 0 ml/min/1.73 m2 CREATININE (test code 1.30 MG/DL 0.52-1.04 H = CREAT) CALCIUM (test code = 7.8 MG/DL 8.4-10.2 L CA) [id number] 06:39:00 Test Item Value Reference Range Interpretation Comments MAGNESIUM (test code = MAG) 1.6 MG/DL 1.6-2.3 N BASIC METABOLIC [id number] 06:33:00 Test Item Value Reference Range Interpretation [...] CALCIUM (test code = CA) MG/DL 8.7-9.7 [id number] 06:33:00 Test Item Value Reference Range Interpretation Comments MAGNESIUM (test code = MAG) MG/DL 1.6-2.3 CBC W/O [id number] 06:18:00 Test Item Value Reference Range Interpretation [...] = 0.00 K/mm3 0.0-0.1 N NRBC#) WBC [id number] 06:18:00 Test Item Value Reference Range Interpretation Comments RBC MORPHOLOGY REQUIRED (test code = RBCM) TOTAL CELLS COUNTED (test code = TCC) #CELLS SEGMENTED NEUTROPHILS (test code = % 36.2-73.8 SEG) LYMPHOCYTE (test code = LYMPH) % 12.9-45.1 MONOCYTE (test code = MON) % 0-11 PLATELET ESTIMATE (test code = ADEQUATE PLTEST) PLATELET MORPHOLOGY (test code = NORMAL PLTMORPH) CBC W/AUTO [id number] 06:18:00 Test Item Value Reference Range Interpretation [...] = 0.00 K/mm3 0.0-0.1 N NRBC#) WBC [id number] 06:18:00 Test Item Value Reference Range Interpretation Comments RBC MORPHOLOGY REQUIRED (test code = RBCM) TOTAL CELLS COUNTED (test code = TCC) #CELLS SEGMENTED NEUTROPHILS (test code = % 36.2-73.8 SEG) LYMPHOCYTE (test code = LYMPH) % 12.9-45.1 MONOCYTE (test code = MON) % 0-11 PLATELET ESTIMATE (test code = ADEQUATE PLTEST) PLATELET MORPHOLOGY (test code = NORMAL PLTMORPH) - XR CHEST [id number] 05:24:00 Patient Name: RUTH ANN MONTEJO Unit No: [id number] EXAMS: CPT CODE: [id number] XR CHEST 1V 12584 EXAMINATION: - XR CHEST 1V LOCATION: H61 INDICATION/CLINICAL HISTORY: post op surgery COMPARISON: Chest x-ray 05/25/2020 TECHNIQUE: Frontal view of the chest. FINDINGS: Right [...] Salinas MD; Humberto Carter; Caridad ASHBY Technologist: Brody Dillon, RT(R) Transcrpt Date/Tm/Trnsp:05/28/2020 (05) t.SDR.TH15 Orig Print D/T: S: 05/28/2020 (05) [facility] NAME: RUTH ANN MONTEJO [id number] PHYS: [place] [address] : 1945 AGE: 74 SEX:F LOC: Z.SI12 A PHONE #: [phone] EXAM DATE: 05/28/2020 STATUS: ADM IN FAX#: [phone] RADIOLOGY NO: PAGE 1 Signed ReportBASIC METABOLIC [id number] 01:07:00 Test Item Value Reference Range Interpretation [...] 7.5 MG/DL 8.4-10.2 L CA) BASIC METABOLIC [id number] 00:55:00 Test Item Value Reference Range Interpretation [...] code = MG/DL 8.7-9.7 CA) BASIC METABOLIC [id number] 00:53:00 Test Item Value Reference Range Interpretation [...] CALCIUM (test code = CA) MG/DL 8.7-9.7 [id number] 00:03:00 Test Item Value Reference Range Interpretation Comments HEMOGLOBIN (test code = HGB) 8.2 G/DL 11.2-14.9 L BASIC METABOLIC [id number] 19:38:00 Test Item Value Reference Range Interpretation [...] 7.8 MG/DL 8.4-10.2 L CA) BASIC METABOLIC [id number] 19:37:00 Test Item Value Reference Range Interpretation [...] code = MG/DL 8.7-9.7 CA) BASIC METABOLIC [id number] 19:35:00 Test Item Value Reference Range Interpretation [...] code = CA) MG/DL 8.7-9.7 BASIC METABOLIC [id number] 19:34:00 Test Item Value Reference Range Interpretation [...] CALCIUM (test code = CA) MG/DL 8.7-9.7 [id number] 17:02:00 Test Item Value Reference Range Interpretation Comments ACT-ISTAT (test code = ACTI) 136 SEC 74-137 N ARTERIAL BLOOD [id number] 16:23:00 Test Item Value Reference Range Interpretation [...] to and readback by LINO RENEE by MACARIOAOO at 05/27/2020 4:20: 49 PM ABG DELIVERY (test N/C code = GHASSAN) ABG TEMPERATURE (test 37.0 C >37 code = TEMPA) ABG SITE (test code = AL SITEA) ALLENS TEST (test code NA CHECK = ALLENS) FIO2 (test code = 40 % COHBGFFIO2) - XR CHEST [id number] 16:20:00 Patient Name: RUTH ANN MONTEJO Unit No: [id number] EXAMS: CPT CODE: [id number] XR CHEST V 94055 EXAM: - XR CHEST 1V 05/27/2020 3:49 [...] pleural effusion. No pneumothorax. Musculoskeletal: No significant skeletal abnormality. IMPRESSION: No radiographic evidence of a focal infiltrate. Enteric tube and right subclavian line. at 1620 Reported and signed by: Michael Hadley MD CC: Lisseth Salinas MD; Caridad ASHBY Technologist: Jarocho Snell, (RT) (R) Transcrpt Date/Tm/Trnsp: 05/27/2020 (1620) [id number] Orig Print D/T: S: 05/27/2020 (8111) [facility] NAME: RUTH ANN MONTEJO [id number] [address] PHYS: [place] [address] : 1945 AGE: 74 SEX: F LOC: Z.SI12A PHONE #: [phone] EXAM DATE: 05/27/2020 STATUS: ADM IN FAX #: [phone] RADIOLOGY NO: PAGE 1 Signed [id number] 15:07:00 Test Item Value Reference Range Interpretation Comments ACT-ISTAT (test code = ACTI) 257 SEC 74-137 H PROTHROMBIN [id number] 14:54:00 Test Item Value Reference Range Interpretation Comments PROTHROMBIN TIME 14.7 SECONDS 9.4-12.5 H PATIENT (test code = PTP) INTERNATIONAL NORMAL 1.3 The INR is to be RATIO (test code = used only for INR) monitoring oral anticoagulantth erap y. INDICATION I NR VALUE ---- ---- ---- -------1. Prophylaxis, de ep venous thrombos is, including high risk surgery. 2.0 - 3.0 2. Prophylaxis, deep venous thrombosis, hip surgery, treatm ent for deep venous thrombosis or pulmonary prevention of systemic emboli sm in patients wit h valvular heart disease, atrial fibrillation, tissue heart va lve, or acute myocar dial infarction. 2.0 - 3.0 3. Insulation Batting Machine Operator al prosthesis hear t valves, recurre nt systemic emboli sm. 3.0 - 4.5 BASIC METABOLIC [id number] 14:49:00 Test Item Value Reference Range Interpretation Comments SODIUM (test code = 137 MMOL/L 137-145 N NA) POTASSIUM (test code = 6.3 MMOL/L 3.5-5.1 HH GARCIA D TO Justina STEARNS& K) READBACK ON AT 1449 BY Lily [...] 7.0 MG/DL 8.4-10.2 L CA) BASIC METABOLIC [id number] 14:47:00 Test Item Value Reference Range Interpretation [...] 7.0 MG/DL 8.4-10.2 L CA) BASIC METABOLIC [id number] 14:46:00 Test Item Value Reference Range Interpretation [...] code = MG/DL 8.7-9.7 CA) BASIC METABOLIC [id number] 14:46:00 Test Item Value Reference Range Interpretation [...] code = MG/DL 8.7-9.7 CA) CBC W/AUTO [id number] 14:31:00 Test Item Value Reference Range Interpretation [...] 0.00 K/mm3 0.0-0.1 N NRBC#) CBC W/AUTO [id number] 13:47:00 Test Item Value Reference Range Interpretation [...] K/mm3 0.0-0.1 N code = NRBC#) DIFFERENTIAL [id number] 13:47:00 Test Item Value Reference Range Interpretation Comments RBC MORPHOLOGY REQUIRED (test code = NORMAL RBCM) PLATELET ESTIMATE (test code = ADEQUATE ADEQUATE PLTEST) PLATELET MORPHOLOGY (test code = NORMAL NORMAL PLTMORPH) PROTHROMBIN [id number] 13:24:00 Test Item Value Reference Range Interpretation Comments PROTHROMBIN TIME 21.4 SECONDS 9.4-12.5 H PATIENT (test code = PTP) INTERNATIONAL NORMAL 1.9 The INR is to be RATIO (test code = used only for INR) monitoring oral anticoagulantth erap y. INDICATION I NR VALUE ---- ---- ---- -------1. Prophylaxis, de ep venous thrombos is, including high risk surgery. 2.0 - 3.0 2. Prophylaxis, deep venous thrombosis, hip surgery, treatm ent for deep venous thrombosis or pulmonary prevention of systemic emboli sm in patients wit h valvular heart disease, atrial fibrillation, tissue heart va lve, or acute myocar dial infarction. 2.0 - 3.0 3. Insulation Batting Machine Operator al prosthesis hear t valves, recurre nt systemic emboli sm. 3.0 - 4.5 UNKNOWN INTERFERENCE. PLEASE RECOLLECT IF RESULT IS NEEDED.COMPREHENSIVE METABOLIC [id number] 12:24:00 Test Item Value Reference Range Interpretation [...] N (test code = ALKP) COMPREHENSIVE METABOLIC [id number] 12:22:00 Test Item Value Reference Range Interpretation [...] N (test code = ALKP) COMPREHENSIVE METABOLIC [id number] 12:20:00 Test Item Value Reference Range Interpretation [...] code = UNITS/L 38-126 ALKP) COMPREHENSIVE METABOLIC [id number] 12:19:00 Test Item Value Reference Range Interpretation [...] code = UNITS/L 38-126 ALKP) CBC W/AUTO [id number] 12:19:00 Test Item Value Reference Range Interpretation [...] K/mm3 0.0-0.1 N code = NRBC#) DIFFERENTIAL [id number] 12:19:00 Test Item Value Reference Range Interpretation Comments RBC MORPHOLOGY REQUIRED (test code = RBCM) PLATELET ESTIMATE (test code = PLTEST) ADEQUATE PLATELET MORPHOLOGY (test code = NORMAL PLTMORPH) CBC W/AUTO [id number] 12:19:00 Test Item Value Reference Range Interpretation Comments WHITE BLOOD CELL (test 4.3 K/MM3 3.8-9.8 N code = WBC) RED BLOOD CELL (test 2.09 M/MM3 3.58-4.97 L code = RBC) HEMOGLOBIN (test code 6.4 G/DL 11.2-14.9 LL CALLED TO = HGB) JOHANNA.M& READBACK ON 05/27/20 AT 121 7 BY Karla Vences HEMATOCRIT (test code 20.0 % 33.2-43.5 L CALLED TO = HCT) JOAHNNA.M& READBACK ON 05/27/20 AT 121 8 BY [...] K/mm3 0.0-0.1 N code = NRBC#) DIFFERENTIAL [id number] 12:19:00 Test Item Value Reference Range Interpretation Comments RBC MORPHOLOGY REQUIRED (test code = RBCM) PLATELET ESTIMATE (test code = PLTEST) ADEQUATE PLATELET MORPHOLOGY (test code = NORMAL PLTMORPH) BASIC METABOLIC [id number] 07:56:00 Test Item Value Reference Range Interpretation [...] LIPOPROTEIN LDL (test 87 MG/DL 0-99 N OPTIM AL.........<100 code = LDL) mg/dLNEAR OPTIMAL/ABOVE OPTIMAL........ .100-12 9 mg/dL BORDERL INE HIGH.........13 0-159 mg/dL HIGH.........16 0-189 mg/dL VERY HIGH.........>/ = 190 mg/dL [id number] 07:56:00 Test Item Value Reference Range Interpretation Comments MAGNESIUM (test code = MAG) 1.8 MG/DL 1.6-2.3 N BASIC METABOLIC [id number] 07:54:00 Test Item Value Reference Range Interpretation [...] LDL (test MG/DL 0-99 code = LDL) [id number] 07:54:00 Test Item Value Reference Range Interpretation Comments MAGNESIUM (test code = MAG) 1.8 MG/DL 1.6-2.3 N PROTHROMBIN [id number] 07:49:00 Test Item Value Reference Range Interpretation Comments PROTHROMBIN TIME 12.0 SECONDS 9.4-12.5 N PATIENT (test code = PTP) INTERNATIONAL NORMAL 1.1 The INR is to be RATIO (test code = used only for INR) monitoring oral anticoagulantth erap y. INDICATION I NR VALUE ---- ---- ---- -------1. Prophylaxis, de ep venous thrombos is, including high risk surgery. 2.0 - 3.0 2. Prophylaxis, deep venous thrombosis, hip surgery, treatm ent for deep venous thrombosis or pulmonary prevention of systemic emboli sm in patients wit h valvular heart disease, atrial fibrillation, tissue heart va lve, or acute myocar dial infarction. 2.0 - 3.0 3. Insulation Batting Machine Operator al prosthesis hear t valves, recurre nt systemic emboli sm. 3.0 - 4.5 PTT [id number] 07:49:00 Test Item Value Reference Range Interpretation Comments PTT ACTIVATED (test code = APTT) 30.8 SECONDS 25.1-36.5 N BASIC METABOLIC [id number] 07:44:00 Test Item Value Reference Range Interpretation [...] LDL (test code = LDL) MG/DL 0-99 [id number] 07:44:00 Test Item Value Reference Range Interpretation Comments MAGNESIUM (test code = MAG) MG/DL 1.6-2.3 BASIC METABOLIC [id number] 07:42:00 Test Item Value Reference Range Interpretation [...] LDL (test code = LDL) MG/DL 0-99 [id number] 07:42:00 Test Item Value Reference Range Interpretation Comments MAGNESIUM (test code = MAG) MG/DL 1.6-2.3 BASIC METABOLIC [id number] 07:41:00 Test Item Value Reference Range Interpretation [...] LDL (test code = LDL) MG/DL 0-99 [id number] 07:41:00 Test Item Value Reference Range Interpretation Comments MAGNESIUM (test code = MAG) MG/DL 1.6-2.3 CBC W/AUTO [id number] 07:39:00 Test Item Value Reference Range Interpretation [...] 0.0-0.1 N NRBC#) COVID 19 Asymptomatic IH [id number] 06:05:00 Test Item Value Reference Range Interpretation Comments COVID 19 NEGATIVE Negative "Negative resul ts from Asymptomatic IH AG patients with symptom (test code = onset beyondfiv e days, COVNONPUIAG) should be treat ed as presumptive, andconfirmation with a molecular assay [...] amount of virus (antigen) in the sample." [id number] 13:38:00 Test Item Value Reference Range Interpretation Comments ACT-ISTAT (test code = ACTI) 241 SEC 74-137 H [id number] 13:38:00 Test Item Value Reference Range Interpretation Comments ACT-ISTAT (test code = ACTI) 224 SEC 74-137 H PROTHROMBIN [id number] 10:02:00 Test Item Value Reference Range Interpretation Comments PROTHROMBIN TIME 10.9 SECONDS 9.6-11.6 N PATIENT (test code = PTP) INTERNATIONAL NORMAL 1.0 0.8-1.1 N The INR is to be RATIO (test code = used only for INR) monitoring oral anticoagulantth erap y. INDICATION I NR VALUE ---- ---- ---- -------1. Prophylaxis, de ep venous thrombos is, including high risk surgery. 2.0 - 3.0 2. Prophylaxis, deep venous thrombosis, hip surgery, treatm ent for deep venous thrombosis or pulmonary prevention of systemic emboli sm in patients wit h valvular heart disease, atrial fibrillation, tissue heart va lve, or acute myocar dial infarction. 2.0 - 3.0 3. Insulation Batting Machine Operator al prosthesis hear t valves, recurre nt systemic emboli sm. 3.0 - 4.5 PTT [id number] 10:02:00 Test Item Value Reference Range Interpretation Comments PTT ACTIVATED (test code = APTT) 25.1 SECONDS 22.0-33.0 N BASIC METABOLIC [id number] 09:48:00 Test Item Value Reference Range Interpretation [...] LIPOPROTEIN LDL (test 68 MG/DL 0-99 N OPTIM AL.........<100 code = LDL) mg/dLNEAR OPTIMAL/ABOVE OPTIMAL........ .100-12 9 mg/dL BORDERL INE HIGH.........13 0-159 mg/dL HIGH.........16 0-189 mg/dL VERY HIGH.........>/ = 190 mg/dL [id number] 09:48:00 Test Item Value Reference Range Interpretation Comments MAGNESIUM (test code = MAG) 1.8 MG/DL 1.6-2.3 N CBC W/AUTO [id number] 09:23:00 Test Item Value Reference Range Interpretation [...] code = 0.00 K/mm3 0.0-0.1 N NRBC#) [id number] 12:09:00 Test Item Value Reference Range Interpretation [...] LIPOPROTEIN LDL (test 106 MG/DL 0-99 H OPTIM AL.........<100 code = LDL) mg/dLNEAR OPTIMAL/ABOVE OPTIMAL........ .100-12 9 mg/dL BORDERL INE HIGH.........13 0-159 mg/dL HIGH.........16 0-189 mg/dL VERY HIGH.........>/ = 190 mg/dL BASIC METABOLIC [id number] 07:52:00 Test Item Value Reference Range Interpretation [...] code = 9.4 MG/DL 8.4-10.2 N CA) [id number] 07:52:00 Test Item Value Reference Range Interpretation [...] (test MG/DL 0-99 code = LDL) PROTHROMBIN [id number] 07:46:00 Test Item Value Reference Range Interpretation Comments PROTHROMBIN TIME 10.3 SECONDS 9.6-11.6 N PATIENT (test code = PTP) INTERNATIONAL NORMAL 1.0 0.8-1.1 N The INR is to be RATIO (test code = used only for INR) monitoring oral anticoagulantth erap y. INDICATION I NR VALUE ---- ---- ---- -------1. Prophylaxis, de ep venous thrombos is, including high risk surgery. 2.0 - 3.0 2. Prophylaxis, deep venous thrombosis, hip surgery, treatm ent for deep venous thrombosis or pulmonary prevention of systemic emboli sm in patients wit h valvular heart disease, atrial fibrillation, tissue heart va lve, or acute myocar dial infarction. 2. 0 - 3.0 3. Insulation Batting Machine Operator al prosthesis hear t valves, recurre nt systemic emboli sm. 3.0 - 4.5 Comments to Linux Systems Analyst: WILL BRING TO THE LABPTT [id number] 07:46:00 Test Item Value Reference Range Interpretation Comments PTT ACTIVATED (test code = APTT) 25.1 SECONDS 22.0-33.0 N Comments to Linux Systems Analyst: WILL BRING TO THE LABCBC W/AUTO [id number] 07:27:00 Test Item Value Reference Range Interpretation [...]
[2022-08-28] MEDS ORDERED: CEFTRIAXONE 1000 MG/VIAL ONE (02:31)
[2022-08-28] MEDS ORDERED: METHYLPREDNISOLONE 125 MG INJ ONE (02:31)
[2022-08-28] MEDS ORDERED: AZITHROMYCIN 500 MG INJ IVPB ONE (02:32)
[2022-08-28] MEDS ORDERED: FAMOTIDINE 20 MG/2 ML VIAL IV ONE (02:32)
[2022-08-28] MEDS ORDERED: NA CHLORIDE 0.9% 250 ML ONE (02:32)
[2022-08-28] MEDS ORDERED: IPRATROPIUM BROM 0.5MG/2.5ML ONE (02:32)
[2022-08-28] MEDS ORDERED: NA CHLORIDE 0.9% 1,000 ML ONE ×3 (02:32→10:32)
[2022-08-28] MEDS ORDERED: LEVALBUTEROL 1.25 MG/3 ML NEB ONE (02:32)
[2022-08-28] MEDS ORDERED: FUROSEMIDE 40 MG/4 ML VIAL ONE (03:13)
--- NOTE | 2022-08-28 03:57 | ER ---
Nurse's Notes [facility] Name: Alyson Ibarra Age: 77 yrs Sex: Female : 1945 Arrival Date: 08/28/2022 Time: 02:21 Bed 4 Private MD: Diagnosis: Dyspnea;COPD/ Chronic obstructive pulmonary disease with acute lower respiratory infection;Pleural condition, unspecified;Hypoxemia;Anemia, unspecified;Type 1 diabetes mellitus with hyperglycemia;Hypomagnesemia Presentation: 08/28 02:54 Chief complaint: EMS states: Toned out for SOB since yesterday, pt reports taking 2 ll3 breathing treatments at home [employer]. Coronavirus screen: Vaccine status: Patient reports being unvaccinated. shortness of breath. Ebola Screen: No symptoms or risks identified at this time. Initial Sepsis Screen: Does the patient meet any 2 criteria? RR > 20 per min. No. Patient's initial sepsis screen is negative. Does the patient have a suspected source of infection? No. Patient's initial sepsis screen is negative. Risk Assessment: Do you want to hurt yourself or someone else? Patient reports no desire to harm self or others. Onset of symptoms was August 27, 2022. 02:54 Method Of Arrival: EMS: [facility] 3 02:54 Acuity: LETY 3 ll3 Triage Assessment: 03:03 General: Appears distressed, uncomfortable, Behavior is cooperative, anxious. Pain: ll3 Complains of pain in face and back. Neuro: Level of Consciousness is awake, alert, obeys commands, Oriented to person, place, time, situation. Respiratory: Respiratory effort is labored, Respiratory pattern is tachypnea Breath sounds with crackles bilaterally. Derm: Skin is pink, warm \\T\\ dry. Historical: - Allergies: 03:03 Cipro; ll3 - Home Meds: 09:55 Albuterol Inhl [Active]; aspirin 81 mg Oral chew 1 tab once daily [Active]; tw2 atorvastatin 40 mg Oral tab 1 tab once daily [Active]; clopidogrel 75 mg Oral tab 1 tab once daily [Active]; diphenoxylate-atropine 2.5-0.025 mg Oral tab 1 tabs 2 times per day [Active]; furosemide 40 mg Oral tab 1.5 tabs once daily [Active]; gabapentin 100 mg Oral cap 3 caps twice daily [Active]; Lantus Sub-Q [Active]; levocetirizine 5 mg Oral tab 1 tab once daily [Active]; losartan 25 mg Oral tab 1 tab once daily [Active]; metoprolol succinate 50 mg Oral Tb24 1 tab once daily [Active]; - PMHx: 03:03 CAD; COPD; Diabetes - IDDM; CHF; Hyperlipidemia; Hypertension; Myocardial infarction; ll3 neuropathy; - PSHx: 03:03 Heart Stents; ll3 - Immunization history:: Client reports having NOT received the Covid vaccine. - Social history:: Smoking status: Patient/guardian denies using tobacco. - Family history:: not pertinent. Screenin:01 Abuse screen: Denies threats or abuse. Denies injuries from another. Nutritional ll3 screening: No deficits noted. Tuberculosis screening: No symptoms or risk factors identified. Fall Risk No fall in past 12 months (0 pts). No secondary diagnosis (0 pts). IV access (20 points). Ambulatory Aid- None/Bed Rest/Nurse Assist (0 pts). Gait- Weak (10 pts.). Mental Status- Oriented to own ability (0 pts). Total Cast Fall Scale indicates No Risk (0-24 pts). Assessment: 03:05 General: See triage assessment. ll3 03:57 Reassessment: Pt refused covid swab. vc1 04:07 Reassessment: No changes from previously documented assessment. Patient and/or family vc1 updated on plan of care and expected duration. Pain level reassessed. Respiratory: Airway is patent Respiratory effort is even, labored, Respiratory pattern is tachypnea Breath sounds with crackles bilaterally. 07:30 Reassessment: pt needing to use the bedside commode. able to independently get to tw2 bedside. pt given supplies. hospital bed brought into pts room. pt repositioned and states "this is so much better". bedside commode cleaned and resupplied. pt did become SOB during movement, but o2 remained at 96%. 08:00 Reassessment: No changes from previously documented assessment. Patient and/or family tw2 updated on plan of care and expected duration. Pain level reassessed. Vital Signs: 02:54 BP 126 / 89; Pulse 81; Resp 24; Temp 97.2(TE); Pulse Ox 98% on R/A; Weight 89.36 kg ll3 (R); Height 5 ft. 4 in. (162.56 cm) (R); 03:00 BP 155 / 77; Pulse 107; Resp 26; Pulse Ox 100% on R/A; vc1 04:09 Pulse 115; Resp 25; Pulse Ox 95% on R/A; vc1 07:00 BP 116 / 59; Pulse 99; Resp 20; Pulse Ox 94% on R/A; ll3 08:00 BP 91 / 52; Pulse 112; Resp 20; Pulse Ox 96% on R/A; tw2 02:54 Body Mass Index 33.81 (89.36 kg, 162.56 cm) ll3 ED Course: 02:21 Patient arrived in ED. ja2 02:23 Jarrod Bonner MD is Attending Physician. carey 02:35 Initial lab(s) drawn, by me, sent to lab. First set of blood cultures drawn by me. bb Missed attempt(s): 20 gauge in left antecubital area. Bleeding controlled, band aid applied, catheter tip intact. Inserted saline lock: 20 gauge in left antecubital area, using aseptic technique. Blood collected. 02:46 XRAY Chest (1 view) In Process Unspecified. EDMS 03:03 Triage completed. ll3 03:03 Arm band placed on Patient placed in an exam room, on a stretcher, on oxygen, on ll3 laboratory monitor, on pulse oximetry. 03:55 Pj Sykes MD is Hospitalizing Provider. carey 04:48 Notified Nurse Practitioner and/or Physician Environmental Services Floor Tech of a critical lab result(s), bb lactate of 2.4 Yahaira Lopez RN notified. 06:22 Chest For Pe Angio In Process Unspecified. EDMS 07:01 Patient has correct armband on for positive identification. Placed in gown. Bed in low ll3 position. Call light in reach. Side rails up X 1. 07:22 Jenise Fang RN is Primary Nurse. tw2 08:07 COVID-19/FLU A+B Sent. tw2 08:59 No provider procedures requiring assistance completed. Patient admitted, IV remains in tw2 place. Administered Medications: 02:50 Drug: SOLU-Medrol (methylPrednisoLONE) 125 mg Route: IVP; Site: left antecubital; ll3 05:37 Follow up: Response: No adverse reaction ll3 02:50 Drug: NS 0.9% 1000 ml Route: IV; Rate: 125 ml/hr; Site: left antecubital; ll3 02:50 Drug: Xopenex (levalbuterol) 3.75 mg Route: Inhalation; ll3 05:37 Follow up: Response: No adverse reaction ll3 02:50 Drug: AtroVENT (ipratropium) Aerosol 0.5 mg Route: Inhalation; ll3 05:36 Follow up: Response: No adverse reaction ll3 02:50 Drug: Pepcid (famotidine) 20 mg Route: IVP; Site: left antecubital; ll3 05:36 Follow up: Response: No adverse reaction ll3 03:16 Drug: Lasix (furosemide) 40 mg Route: IVP; Site: left antecubital; ll3 05:36 Follow up: Response: No adverse reaction ll3 04:06 Drug: Zithromax (azithromycin) 500 mg Route: IVPB; Infused Over: 1 hrs; Site: left vc1 forearm; 05:37 Follow up: Response: No adverse reaction; IV Status: Completed infusion; IV Intake: ll3 250ml 04:07 Drug: Rocephin (cefTRIAXone) 1 grams Route: IV; Rate: per protocol; Site: left forearm; vc1 05:37 Follow up: Response: No adverse reaction; IV Status: Completed infusion; IV Intake: [id number] 05:36 Drug: NS 0.9% 1000 ml Route: IV; Rate: 1 bolus; Site: left antecubital; ll3 06:53 Drug: Mucomyst - Acetylcysteine 600 mg Route: PO; ll3 06:54 Drug: Magnesium Sulfate 2 grams Route: IVPB; Infused Over: 2 hrs; Site: left ll3 antecubital; Medication: 07:01 VIS not applicable for this client. ll3 Intake: 05:37 IV: 250ml; Total: 250ml. ll3 05:37 IV: 10ml; Total: 260ml. ll3 Outcome: 03:57 Decision to Hospitalize by Provider. carey 08:59 Admitted to ER Hold. Please see [facility] for further documentation. tw2 08:59 Condition: stable tw2 14:38 Patient left the ED. tw2 Signatures: Dispatcher [employer] EDWI Jarrod Bonner MD MD cha Ballard, Brenda, RN RN Jenise Briones RN RN tw2 Gianna Hayes Lynsea, RN RN ll3 Shaila Nuno, RN RN vc1
--- NOTE | 2022-08-28 03:58 | EDPHYS ---
Physician Documentation [facility] Name: Alyson Ibarra Age: 77 yrs Sex: Female : 1945 Arrival Date: 08/28/2022 Time: 02:21 Bed 4 Private MD: ED Physician Jarrod Bonner HPI: 08/28 02:27 This 77 yrs old Female presents to ER via Unassigned with complaints of SOB. carey 02:27 The patient has shortness of breath at rest, with light activity. Onset: The carey symptoms/episode began/occurred 2 day(s) ago. Duration: The symptoms are continuous, and are steadily getting worse. The patient's shortness of breath is aggravated by coughing, prone position, talking, walking, is alleviated by pursed lip breathing, rest, sitting up, application of supplemental oxygen. Associated signs and symptoms: Pertinent positives: non-productive cough, fever. Severity of symptoms: At their worst the symptoms were mild moderate in the emergency department the symptoms are unchanged. The patient has experienced similar episodes in the past, several times. Historical: - Allergies: 03:03 Cipro; ll3 - Home Meds: 09:55 Albuterol Inhl [Active]; aspirin 81 mg Oral chew 1 tab once daily [Active]; tw2 atorvastatin 40 mg Oral tab 1 tab once daily [Active]; clopidogrel 75 mg Oral tab 1 tab once daily [Active]; diphenoxylate-atropine 2.5-0.025 mg Oral tab 1 tabs 2 times per day [Active]; furosemide 40 mg Oral tab 1.5 tabs once daily [Active]; gabapentin 100 mg Oral cap 3 caps twice daily [Active]; Lantus Sub-Q [Active]; levocetirizine 5 mg Oral tab 1 tab once daily [Active]; losartan 25 mg Oral tab 1 tab once daily [Active]; metoprolol succinate 50 mg Oral Tb24 1 tab once daily [Active]; - PMHx: 03:03 CAD; COPD; Diabetes - IDDM; CHF; Hyperlipidemia; Hypertension; Myocardial infarction; ll3 neuropathy; - PSHx: 03:03 Heart Stents; ll3 - Immunization history:: Client reports having NOT received the Covid vaccine. - Social history:: Smoking status: Patient/guardian denies using tobacco. - Family history:: not pertinent. ROS: 02:28 Constitutional: Negative for fever, chills, and weight loss, Eyes: Negative for injury, carey pain, redness, and discharge, ENT: Negative for injury, pain, and discharge, Neck: Negative for injury, pain, and swelling, Cardiovascular: Negative for chest pain, palpitations, and edema, Abdomen/GI: Negative for abdominal pain, nausea, vomiting, diarrhea, and constipation, Back: Negative for injury and pain, : Negative for injury, bleeding, discharge, and swelling, MS/Extremity: Negative for injury and deformity, Skin: Negative for injury, rash, and discoloration, Neuro: Negative for headache, weakness, numbness, tingling, and seizure. 02:28 Respiratory: Positive for shortness of breath, at rest. wheezing, expiratory. Exam: 02:28 Constitutional: This is a well developed, well nourished patient who is awake, alert, carey and in no acute distress. Head/Face: Normocephalic, atraumatic. Eyes: Pupils equal round and reactive to light, extra-ocular motions intact. Lids and lashes normal. Conjunctiva and sclera are non-icteric and not injected. Cornea within normal limits. Periorbital areas with no swelling, redness, or edema. ENT: Nares patent. No nasal discharge, no septal abnormalities noted. Tympanic membranes are normal and external auditory canals are clear. Oropharynx with no redness, swelling, or masses, exudates, or evidence of obstruction, uvula midline. Mucous membranes moist. Neck: Trachea midline, no thyromegaly or masses palpated, and no cervical lymphadenopathy. Supple, full range of motion without nuchal rigidity, or vertebral point tenderness. No Meningismus. Chest/axilla: Normal chest wall appearance and motion. Nontender with no deformity. No lesions are appreciated. Abdomen/GI: Soft, non-tender, with normal bowel sounds. No distension or tympany. No guarding or rebound. No evidence of tenderness throughout. Back: No spinal tenderness. No costovertebral tenderness. Full range of motion. Skin: Warm, dry with normal turgor. Normal color with no rashes, no lesions, and no evidence of cellulitis. MS/ Extremity: Pulses equal, no cyanosis. Neurovascular intact. Full, normal range of motion. Neuro: Awake and alert, GCS 15, oriented to person, place, time, and situation. Cranial nerves II-XII grossly intact. Motor strength 5/5 in all extremities. Sensory grossly intact. Cerebellar exam normal. Normal gait. Psych: Awake, alert, with orientation to person, place and time. Behavior, mood, and affect are within normal limits. 02:28 Cardiovascular: Rate: tachycardic, Rhythm: regular, Pulses: Pulses are 4+ in bilateral radial, brachial, femoral, popliteal, posterior tibial and and dorsalis pedis arteries.. Heart sounds: normal, Edema: is not appreciated, JVD: is not appreciated. 02:28 ECG was reviewed by the Attending Physician. Vital Signs: 02:54 BP 126 / 89; Pulse 81; Resp 24; Temp 97.2(TE); Pulse Ox 98% on R/A; Weight 89.36 kg ll3 (R); Height 5 ft. 4 in. (162.56 cm) (R); 03:00 BP 155 / 77; Pulse 107; Resp 26; Pulse Ox 100% on R/A; vc1 04:09 Pulse 115; Resp 25; Pulse Ox 95% on R/A; vc1 07:00 BP 116 / 59; Pulse 99; Resp 20; Pulse Ox 94% on R/A; ll3 08:00 BP 91 / 52; Pulse 112; Resp 20; Pulse Ox 96% on R/A; tw2 02:54 Body Mass Index 33.81 (89.36 kg, 162.56 cm) ll3 MDM: 02:23 Patient medically screened. carey 02:32 Differential diagnosis: Anxiety Reaction asthma, Bronchitis CHF exacerbation, Chronic carey Obstructive Pulmonary Disease acute asthma, CHF, URI, pneumonia, pulmonary edema, Pulmonary Embolism reactive airway disease, Unstable Angina. Antibiotic administration: Rocephin and Zithromax given. The patient's Wells Deep Vein Thrombosis Score was calculated as follows: Heart Rate >100 BPM (1.5 Pts) Total Score: 0-2 Pts- Low Risk. Differential Diagnosis: Bronchitis Influenza Upper Respiratory Infection Sinusitis Pharyngitis Asthma Exacerbation Viral Syndrome Pneumonia. The patient's pulmonary embolism risk score was calculated as follows: the patients heart rate is greater than 100 beats per minute (1.5 Pts) Total Score: 0-2 points. This patient was found to be at low risk for a pulmonary embolism by using the Well's assessment criteria. Immunization status: Pneumococcal vaccine: Influenza vaccine: Data reviewed: vital signs, nurses notes, lab test result(s), EKG, radiologic studies, CT scan, plain films. Data interpreted: pvc monitor: rate is 102 beats/min, rhythm is regular, Pulse oximetry: on room air is 94 %. Test interpretation: by ED physician or midlevel provider: ECG, plain radiologic studies. Counseling: I had a detailed discussion with the patient and/or guardian regarding: the historical points, exam findings, and any diagnostic results supporting the discharge/admit diagnosis, lab results, radiology results, the need for further work-up and treatment in the hospital. 08/28 02:27 Order name: Basic Metabolic Panel; Complete Time: 05:44 [facility] 08/28 02:27 Order name: CBC with Diff; Complete Time: 04:47 [facility] 08/28 02:27 Order name: LFT's; Complete Time: 05:44 [facility] 08/28 02:27 Order name: Magnesium; Complete Time: 05:44 [facility] 08/28 02:27 Order name: NT PRO-BNP; Complete Time: 05:44 [facility] 08/28 02:27 Order name: PT-INR; Complete Time: 04:36 [facility] 08/28 02:27 Order name: Troponin HS; Complete Time: 05:44 [facility] 08/28 02:27 Order name: Blood Culture Adult (2) [facility] 08/28 02:27 Order name: Lactate w/ 2H reflex if indic.; Complete Time: 05:00 [facility] 08/28 02:27 Order name: COVID-19/FLU A+B [facility] 08/28 02:27 Order name: ABG [facility] 08/28 07:16 Order name: Lactate Sepsis 2 HR Follow-up; Complete Time: 07:20 [facility] 08/28 08:56 Order name: Magnesium [facility] 08/28 08:56 Order name: NT PRO-BNP [facility] 08/28 02:27 Order name: XRAY Chest (1 view) [facility] 08/28 02:57 Order name: CT Chest For PE Angio [facility] 08/28 03:01 Order name: Chest For Pe Angio [facility] 08/28 06:00 Order name: Echo w/ Doppler [facility] 08/28 08:56 Order name: Phosphorus [facility] 08/28 08:56 Order name: Urinalysis [facility] 08/28 08:56 Order name: Basic Metabolic Panel [facility] 08/28 08:56 Order name: Basic Metabolic Panel [facility] 08/28 08:56 Order name: CBC with Automated Diff [facility] 08/28 08:56 Order name: CBC with Automated Diff [facility] 08/28 11:36 Order name: Glucose, Ancillary Testing [facility] 08/28 02:27 Order name: EKG; Complete Time: 02:27 [facility] 08/28 02:27 Order name: Cardiac monitoring; Complete Time: 02:28 [facility] 08/28 02:27 Order name: EKG - Nurse/Tech; Complete Time: 02:27 [facility] 08/28 02:27 Order name: IV Saline Lock; Complete Time: 02:51 [facility] 08/28 02:27 Order name: Labs collected and sent; Complete Time: 04:12 [facility] 08/28 02:27 Order name: O2 Per Protocol; Complete Time: 02:28 [facility] 08/28 02:27 Order name: O2 Sat Monitoring; Complete Time: 02:28 [facility] 08/28 08:56 Order name: 60g Consistent Carbohydrate (ADA 1800/2000) EDMS EC: Rate is 102 beats/min. Rhythm is regular. QRS [place] is Normal. SD interval is normal. [facility] QRS interval is normal. QT interval is normal. No Q waves. T waves are Normal. No ST changes noted. Clinical impression: Sinus tachycardia and No evidence of ischemia. Interpreted by me. Reviewed by me. Administered Medications: 02:50 Drug: SOLU-Medrol (methylPrednisoLONE) 125 mg Route: IVP; Site: left antecubital; ll3 05:37 Follow up: Response: No adverse reaction ll3 02:50 Drug: NS 0.9% 1000 ml Route: IV; Rate: 125 ml/hr; Site: left antecubital; ll3 02:50 Drug: Xopenex (levalbuterol) 3.75 mg Route: Inhalation; ll3 05:37 Follow up: Response: No adverse reaction ll3 02:50 Drug: AtroVENT (ipratropium) Aerosol 0.5 mg Route: Inhalation; ll3 05:36 Follow up: Response: No adverse reaction ll3 02:50 Drug: Pepcid (famotidine) 20 mg Route: IVP; Site: left antecubital; ll3 05:36 Follow up: Response: No adverse reaction ll3 03:16 Drug: Lasix (furosemide) 40 mg Route: IVP; Site: left antecubital; ll3 05:36 Follow up: Response: No adverse reaction ll3 04:06 Drug: Zithromax (azithromycin) 500 mg Route: IVPB; Infused Over: 1 hrs; Site: left vc1 forearm; 05:37 Follow up: Response: No adverse reaction; IV Status: Completed infusion; IV Intake: ll3 250ml 04:07 Drug: Rocephin (cefTRIAXone) 1 grams Route: IV; Rate: per protocol; Site: left forearm; vc1 05:37 Follow up: Response: No adverse reaction; IV Status: Completed infusion; IV Intake: [id number] 05:36 Drug: NS 0.9% 1000 ml Route: IV; Rate: 1 bolus; Site: left antecubital; ll3 06:53 Drug: Mucomyst - Acetylcysteine 600 mg Route: PO; ll3 06:54 Drug: Magnesium Sulfate 2 grams Route: IVPB; Infused Over: 2 hrs; Site: left ll3 antecubital; Disposition Summary: 08/28/22 03:57 Hospitalization Ordered Hospitalization Status: Inpatient Admission carey Provider: Pj Sykes carey Condition: Fair carey Problem: new carey Symptoms: have improved carey Bed/Room Type: Standard carey Location: Telemetry/MedSurg (Inpatient)(08/28/22 13:41) Room Assignment: 403(08/28/22 13:41) Diagnosis - Dyspnea carey - COPD/ Chronic obstructive pulmonary disease with acute lower respiratory infection carey - Pleural condition, unspecified carey - Hypoxemia carey - Anemia, unspecified carey - Type 1 diabetes mellitus with hyperglycemia carey - Hypomagnesemia carey Forms: - Medication Reconciliation Form carey - SBAR form carey Signatures: Dispatcher [employer] EDCarli Hernandez RN RN dw Anderson, Corey, MD MD cha Garcia, Cindy, RN RN cg Jenise Fang RN RN tw2 Keny Rocha RN RN ll3 Shaila Nuno RN RN vc1 Beena Lopez PA-C PAYvan sb4 Corrections: (The following items were deleted from the chart) 06:44 03:57 Telemetry/MedSurg (Inpatient) carey cg 06:44 03:57 carey cg 13:41 06:44 [facility] ER HOLD cg dw 13:41 06:44 ERHOLD- cg dw
[2022-08-28 04:31] LABS: Absolute Lymphocytes (CBC) 1.3 K/uL (0.7-4.9); Hematocrit 29.8 % (36.0-45.0); Lymphocytes % 17.7 % (15.3-44.8); MCV 91.8 fL (80-100); MPV 8.5 fL (7.6-11.3); Protime INR 1.18; RBC Red Blood Cell Count 3.25 M/uL (3.86-4.86)
[2022-08-28 05:42] LABS: Albumin 3.5 g/dL (3.4-5.0); Bilirubin Direct 0.2 mg/dL (0-0.2); Bilirubin Total 0.7 mg/dL (0.2-1.0); Magnesium 1.7 mg/dL (1.8-2.4); Potassium 3.8 mmol/L (3.5-5.1); Protein, Total 7.2 g/dL (6.4-8.2)
[2022-08-28] MEDS ORDERED: Magnesium Sulfate 2gm IVPB 2 G/50 ML BAG IV ONE (06:29)
[2022-08-28] MEDS ORDERED: ACETYLCYST 6,000 MG/30 ML VIAL ONE (06:32)
[2022-08-28 08:38] LABS: SARS-COV-2 RT PCR NEGATIVE (NEGATIVE)
[2022-08-28] MEDS ORDERED: ACETAMINOPHEN 325 MG TABLET PO PRN (08:51)
[2022-08-28] MEDS ORDERED: HYDRALAZINE HCL 20 MG/ML VIAL IV PRN (08:52)
[2022-08-28] MEDS ORDERED: ONDANSETRON 4 MG/2 ML VIAL IV PRN (08:54)
--- NOTE | 2022-08-28 08:57 | P.HP ---
Certification for Inpatient Patient admitted to: Inpatient With expected LOS: >2 Midnights Patient will require the following post-hospital care: None Practitioner: I am a practitioner with admitting privileges, knowledge of patient current condition, hospital course, and medical plan of care. Services: Services provided to patient in accordance with Admission requirements found in Title 42 Section 412.3 of the Code of Federal Regulations <Feng Bowman - Last Filed: 08/28/22 12:03> Patient History Date of Service: 08/28/22 Reason for admission: SOB History of Present Illness: Patient is a 77-year-old female with a past medical history significant for COPD, DM2 with neuropathy, CAD with stent, CHF, HLD, hypertension, MT, CABG who presents with complaint of shortness of breath onset 5 days ago. Patient reported associated signs and symptoms of orthopnea, cough, chest tightness, headache, chills, nausea and abdominal distention. Patient denies any other signs and symptoms. Shortness of breath is aggravated with exertion and relieved by nothing. Patient decided to present to the hospital due to worse hazel symptoms. - Past Medical/Surgical History Diabetic: Yes -: Hypertension -: CHF -: IDDM -: neuropathy -: hyperlipidemia -: CAD -: MT -: COPD -: cardiac catheterization -: Coronary artery bypass grafting -: Bilateral knee surgery - Family History Mother -: Diabetes Father -: Diabetes - Social History Smoking Status: Former smoker Alcohol use: No CD- Drugs: No Caffeine use: No Place of Residence: Home <Feng Bowman - Last Filed: 08/28/22 12:03> Date of Service: 08/28/22 <Mario Kumar - Last Filed: 08/28/22 19:10> Allergies ciprofloxacin [From Cipro] Allergy (Intermediate, Verified 08/28/22 14:56) Itching Home Medications: Insulin Glargine Human [Lantus*] 52 units SQ BID 05/09/18 Losartan Potassium 25 mg PO DAILY 12/27/21 Albuterol Inhaler [Ventolin Inhaler] 2 puff IH Q6H PRN 08/28/22 Clopidogrel Bisulfate [Plavix] 75 mg PO DAILY 08/28/22 Furosemide [Lasix] 40 mg PO DAILY 08/28/22 Hydrocodone Bit/Acetaminophen [Hydrocodon-Acetaminoph 7.5-325] 1 each PO BID 08/28/22 Metoprolol Succinate [Toprol Xl] 50 mg PO DAILY 08/28/22 Review of Systems General: Chills Eyes: Unremarkable ENT: Unremarkable Respiratory: Cough, Shortness of Breath, SOB with Excertion, Other (Chest tightness) Cardiovascular: Orthopnea Gastrointestinal: Nausea, Distention Genitourinary: Unremarkable Musculoskeletal: Unremarkable Integumentary: Unremarkable Neurological: Other (Headache.) Lymphatics: Unremarkable <Feng Bowman E - Last Filed: 08/28/22 12:03> Physical Examination - Physical Exam General: Alert, Oriented x3, Cooperative, Mild distress HEENT: Atraumatic, PERRLA, Mucous membr. moist/pink, EOMI, Sclerae nonicteric Neck: Supple, 2+ carotid pulse no bruit, No LAD, Without JVD or thyroid a bnormality Respiratory: Clear to auscultation bilaterally, Diminished Cardiovascular: Regular rate/rhythm, Normal S1 S2 Capillary refill: <2 Seconds Gastrointestinal: Normal bowel sounds, Soft and benign, Distended Musculoskeletal: No clubbing, No contractures, No erythema, No warmth Integumentary: No rashes, No breakdown, No significant lesion Neurological: Normal gait, Normal speech, Normal strength at 5/5 x4 extr, Normal tone, Normal affect Lymphatics: No axilla or inguinal lymphadenopathy - Studies Laboratory Data (last 24 hrs) 08/28/22 03:46: PT 13.0 H, INR 1.18 08/28/22 03:46: WBC 7.50, Hgb 9.9 L, Hct 29.8 L, Plt Count 151 L 08/28/22 03:46: Sodium 144, Potassium 3.8, BUN 28 H, Creatinine 1.49 H, Glucose 170 H, Magnesium 1.7 L, Total Bilirubin 0.7, AST 34, ALT 58, Alkaline Phosphatase 149 H Microbiology Data (last 24 hrs): 08/28/22 02:27 Blood - Blood Anaerobic Blood Culture - Final <Feng Bowman - Last Filed: 08/28/22 12:03> - Studies Laboratory Data (last 24 hrs) 08/28/22 03:46: PT 13.0 H, INR 1.18 08/28/22 03:46: WBC 7.50, Hgb 9.9 L, Hct 29.8 L, Plt Count 151 L 08/28/22 03:46: Sodium 144, Potassium 3.8, BUN 28 H, Creatinine 1.49 H, Glucose 170 H, Magnesium 1.7 L, Total Bilirubin 0.7, AST 34, ALT 58, Alkaline Phosphatase 149 H Microbiology Data (last 24 hrs): 08/28/22 02:27 Blood - Blood Anaerobic Blood Culture - Final <Mario Kumar - Last Filed: 08/28/22 19:10> Assessment and Plan - Plan --Acute on chronic systolic CHF exacerbation. Echocardiogram pending. Last echo indicates an EF of 45 to 50%. Continue diuresis with Lasix. Daily weight and strict I/O. Continue supportive care. --Acute on chronic COPD exacerbation. Patient placed on steroids, neb treatment with albuterol\Atrovent and O2 therapy as needed. Pulmonology consulted. Will await further recommendations. --DM2 with neuropathy. BS monitoring with sliding scale insulin and Lantus. Continue gabapentin for neuropathy. --CKD 3B. Stable. We will avoid NSAIDs, ARBs and nephrotoxins. We will continue to monitor renal functions. --HLD. Continue statin. --History of CAD with stents\MT\CABG. Continue aspirin and statin. --Hypertension. Stable. Continue home medications. -- Iron deficiency anemia. Continue ferrous gluconate -- Class I obesity. Likely secondary to excess calories intake. Patient counseled on weight reduction, diet and exercise therapy. --Hypomagnesemia. Magnesium oxide x1 dose given. Will reassess levels in a.m. --DVT prophylaxis with heparin subQ. Discharge Plan: Home Plan to discharge in: Greater than 2 days - Advance Directives Does patient have a Living Will: Yes Does patient have a Durable POA for Healthcare: No - Code Status/Comfort Care Code Status Assessed: Yes Physician Review: Patient Assessed, Agree with Above Assessment and Plan Critical Care: No <Feng Bowman - Last Filed: 08/28/22 12:03> Physician Review: Patient Assessed, Agree with Above Assessment and Plan <Mario Kumar - Last Filed: 08/28/22 19:10>
[2022-08-28] MEDS: ASPIRIN 81 MG CHEWABLE TABLET PO SCH (09:21)
[2022-08-28] MEDS: METHYLPREDNISOLONE 40 MG INJ IV SCH ×2 (09:21→16:26)
[2022-08-28] MEDS: HEPARIN 5000 UNIT/ML 1 ML VIAL SQ SCH ×2 (09:21→21:03)
[2022-08-28] MEDS ORDERED: PNEUMOCOCCAL VACCINE 0.5 ML IMVAC ONE (11:00)
[2022-08-28] MEDS ORDERED: INSULIN -REGULAR HUMAN 50 UNIT/0.5 ML ML ONE (11:28)
[2022-08-28] MEDS: INSULIN -REGULAR HUMAN 50 UNIT/0.5 ML ML SQ SCH ×4 (11:28→21:00)
--- NOTE | 2022-08-28 11:41 | ECHO ---
HEIGHT: 5 ft 4 in WEIGHT: 197 lb 0.081 oz DATE OF STUDY: 08/28/[address]: Jarrod Bonner MD 2-DIMENSIONAL: YES M.MODE: YES DOPPLER: YES COLOR FLOW: YES TDS: PORTABLE: YES DEFINITY: BUBBLE STUDY: DIAGNOSIS: CONGESTIVE HEART FAILURE CARDIAC HISTORY: CATHERIZATION: YES SURGERY: YES PROSTHETIC VALVE: PACEMAKER: MEASUREMENTS (cm) DIASTOLIC (NORMALS) SYSTOLIC (NORMALS) IVSd 1.1 (0.6-1.2) LA Diam 3.3 (1.9-4.0) LVEF 40% LVIDd 3.7 (3.5-5.7) LVIDs 3.0 (2.0-3.5) %FS 19% LVPWd 1.1 (0.6-1.2) Ao Diam 2.6 (2.0-3.7) 2 DIMENSIONAL ASSESSMENT: RIGHT ATRIUM: NORMAL LEFT ATRIUM: NORMAL RIGHT VENTRICLE: NORMAL LEFT VENTRICLE: NORMAL SIZE TRICUSPID VALVE: NORMAL MITRAL VALVE: NORMAL PULMONIC VALVE: NORMAL AORTIC VALVE: NORMAL PERICARDIAL EFFUSION: NONE AORTIC ROOT: NORMAL LEFT VENTRICULAR WALL MOTION: MODERATE GLOBAL HYPOKINESIS DOPPLER/COLOR FLOW: MILD MITRAL REGURGITATION, TRICUSPID REGURGITATION COMMENTS: 1. MODERATE GLOBAL HYPOKINESIS 2. MILD MITRAL REGURGITATION, TRICUSPID REGURGITATION 3. EJECTION FRACTION 40% TECHNOLOGIST: PARISH MONDRAGON
[2022-08-28] MEDS ORDERED: MAGNESIUM OXIDE 400 MG TAB PO ONE (12:00)
[2022-08-28] MEDS ORDERED: MAGNESIUM OXIDE 400 MG TAB ONE (13:14)
--- NOTE | 2022-08-28 13:58 | RAD REPORT ---
EXAM DESCRIPTION: XR Chest, 1 View CLINICAL HISTORY: The patient is 77 years old and is Female; COPD TECHNIQUE: Frontal view of the chest. COMPARISON: No pertinent prior images available for comparison at time of dictation FINDINGS: LUNGS: See below. PLEURAL SPACE: Loss of the left costophrenic angle suggests a layering left pleural effusion versus pleural thickening and/or consolidation, of uncertain chronicity. No additional focal consolidation. Equivocal trace right pleural effusion versus pleural thickening. No pneumothorax or pneumomediastinum. HEART: Coronary artery bypass graft (CABG). MEDIASTINUM: See above. BONES/JOINTS: Median sternotomy. IMPRESSION: Loss of the left costophrenic angle suggests a layering left pleural effusion versus ple ural thickening and/or consolidation, of uncertain chronicity. No additional focal consolidation. Electronically signed by: Farshad Alvarez MD 08/28/2022 3:32 AM EDUCATIONAL RECRUITER Due to temporary technical issues with the PACS/Fluency reporting system, reports are being signed by the in house radiologists without review as a courtesy to insure prompt reporting. The interpreting radiologist is fully responsible for the content of the report.
--- NOTE | 2022-08-28 14:30 | RAD REPORT ---
EXAM DESCRIPTION: CT angiography of the chest Sex: Female. : 1945. TECHNIQUE: Was performed with axial dataset after bolus intravenous injection of intravenous contrast including computer-generated multiplanar MIP reformations. Total Dose Length Product: 449. This exam was performed according to our departmental dose-optimization program, which includes autom ated exposure control, adjustment of the mA and/or kV according to patient size and/or use of iterati ve reconstruction technique. COMPARISON: CT scan of December 27, 2021. Chest x-ray August 28, 2022. CLINICAL HISTORY: DYSPNEA. CT Chest: FINDINGS: Pulmonary arteries: Main, right, left pulmonary arteries are opacified without evidence fo r large, central or saddle embolus. The branching segmental arteries are normal. No evidence for acut e pulmonary embolism. Cardiac: Heart size: Heart size is within normal limits. Status post sternotomy. Moderate coronary artery ca lcification. Pericardial effusion: None. Right ventricular strain: None. Left atrial clot: None. Aorta: There is [id number] calcification in the thoracic aorta without aneurysm. The ascending segment is 2.8 cm. The descending segment is 1.8 cm. Lungs: Height There is partially calcified pleural thickening in the right apex consistent with sequelae of prior granulomatous disease and unchanged comparing to the December 27 exam. -There is mild patchy airspace infiltrate in the right lower lobe. -There is mild patchy consolidation in the inferior lingula with air bronchograms. -There is moderate patchy infiltrate in the left lower lobe. Pleura: -There is a small amount of pleural fluid on the right small pleural fluid extends into the pleural f issures on the right side as well. -There is a [id number] low attenuating left pleural effusion. Mediastinum: There are multiple nonspecific subcentimeter anterior mediastinal nodes. Dominga: No mass. Musculoskeletal: Sternotomy. Degenerative disc disease in the thoracic spine. Multilevel spondylosis. Schmorl's nodes are noted at T11 and T12 Upper abdomen: None. IMPRESSION: 1. There is no evidence for acute pulmonary embolism. 2. Bilateral pneumonia and pleural effusions. Right apical scarring. 3. Mild nonspecific mediastinal adenopathy. 4. Status post sternotomy. Electronically signed by: Mele Lehman MD 08/28/2022 7:37 AM DRAWER MAKER Due to temporary technical issues with the PACS/Fluency reporting system, reports are being signed by the in house radiologists without review as a courtesy to insure prompt reporting. The interpreting radiologist is fully responsible for the content of the report.
[2022-08-28] MEDS: ALBUTEROL 2.5 MG/3 ML NEB SOL NEB SCH ×2 (15:11→19:40)
[2022-08-28] MEDS: IPRATROPIUM BROM 0.5MG/2.5ML NEB SCH ×2 (15:11→19:40)
[2022-08-28] MEDS ORDERED: GLUCAGON 1 MG/VIAL IM PRN (15:57)
[2022-08-28] MEDS ORDERED: D50W 25 GM/50 ML SYRINGE IV PRN (15:57)
[2022-08-28] MEDS ORDERED: DEXTROSE 10%-WATER 125 ML IV PRN (16:09)
[2022-08-28] MEDS: FUROSEMIDE 40 MG/4 ML VIAL IV SCH (16:26)
[2022-08-28] MEDS ORDERED: INSULIN -REGULAR HUMAN 50 UNIT/0.5 ML ML IV ONE (16:30)
[2022-08-28 16:37] LABS: Phosphorus 2.9 mg/dL (2.5-4.9)
[2022-08-28] MEDS: DOXYCYCLINE 100 MG in NA CHLORIDE 0.9% 100 ML IVPB SCH (18:07)
[2022-08-28 18:26] LABS: Specific Gravity 1.015 (1.005-1.030); Urine Bacteria <20 /HPF (<20); Urine Bilirubin NEGATIVE (Negative); Urine Blood Trace (Negative); Urine Clarity Turbid (Clear); Urine Color Light-Yellow (Yellow); Urine Crystals Unidentified Few /HPF (None Seen); Urine Glucose 4+ (Over) (Negative); Urine Mucus Slight /HPF (None Seen); Urine Protein NEGATIVE (Negative); Urine RBC <5 /HPF (None Seen); Urine Urobilinogen Normal (Normal)
[2022-08-28] MEDS: CEFTRIAXONE 1,000 MG in NA CHLORIDE 0.9% 50 ML IVPB SCH (18:48)
[2022-08-28] MEDS: ATORVASTATIN 40 MG TAB PO SCH (20:59)
[2022-08-28] MEDS: GABAPENTIN 300 MG CAP PO SCH (21:00)
[2022-08-28] MEDS: INSULIN GLARGINE 100 UNIT/ML SQ SCH (21:00)
[2022-08-29] MEDS: METHYLPREDNISOLONE 40 MG INJ IV SCH ×3 (00:58→21:12)
[2022-08-29] MEDS: ALBUTEROL 2.5 MG/3 ML NEB SOL NEB SCH ×4 (01:25→20:20)
[2022-08-29] MEDS: IPRATROPIUM BROM 0.5MG/2.5ML NEB SCH ×4 (01:25→20:20)
[2022-08-29] MEDS: DOXYCYCLINE 100 MG in NA CHLORIDE 0.9% 100 ML IVPB SCH ×2 (05:37→17:02)
[2022-08-29 06:22] LABS: Magnesium 2.1 mg/dL (1.8-2.4); Potassium 4.5 mmol/L (3.5-5.1)
[2022-08-29 06:35] LABS: Absolute Lymphocytes (CBC) 0.3 K/uL (0.7-4.9); Hematocrit 23.2 % (36.0-45.0); Lymphocytes % 4.1 % (15.3-44.8); MCV 91.9 fL (80-100); MPV 8.7 fL (7.6-11.3); RBC Red Blood Cell Count 2.52 M/uL (3.86-4.86)
[2022-08-29] MEDS: INSULIN -REGULAR HUMAN 50 UNIT/0.5 ML ML SQ SCH ×5 (08:43→21:00)
[2022-08-29] MEDS: ASPIRIN 81 MG CHEWABLE TABLET PO SCH (08:50)
[2022-08-29] MEDS: HYDROCODONE/APAP 5/325 MG TAB PO PRN ×2 (08:50→21:11)
[2022-08-29] MEDS: HEPARIN 5000 UNIT/ML 1 ML VIAL SQ SCH ×2 (08:51→21:13)
[2022-08-29] MEDS: FUROSEMIDE 40 MG/4 ML VIAL IV SCH ×2 (08:51→16:55)
[2022-08-29] MEDS: CEFTRIAXONE 1,000 MG in NA CHLORIDE 0.9% 50 ML IVPB SCH (08:52)
[2022-08-29] MEDS: FERROUS GLUCONATE 324 MG TAB PO SCH (09:00)
[2022-08-29] MEDS ORDERED: D10W 250 ML BAG IV PRN (11:35)
--- NOTE | 2022-08-29 11:35 | P.PN ---
Subjective Date of Service: 08/29/22 Chief Complaint: SOB No acute events overnight. She reports persistent shortness of breath, but states that this has gradually improved. She continues to report cough. She denies chest pain or palpitations. Review of Systems 10-point ROS is otherwise unremarkable Respiratory: Cough, Shortness of Breath Physical Examination - Vital Signs Temperature: 97.8 F Blood Pressure: 115/51 Pulse: 109 Respirations: 18 Pulse Ox (%): 97 - Physical Exam General: Alert, In no apparent distress, Oriented x3 HEENT: Atraumatic, PERRLA, Mucous membr. moist/pink, EOMI, Sclerae nonicteric Neck: JVD not distended Respiratory: Diminished (bilateral bases), Rhonchi/gurgles Cardiovascular: Regular rate/rhythm, Normal S1 S2, No gallops, No rubs, No murmurs, Edema (trace) Gastrointestinal: Normal bowel sounds, Soft and benign, Non-distended, No tenderness, No rebound, No guarding Musculoskeletal: No clubbing Integumentary: No rashes Neurological: Normal speech, Cranial nerves 3-12 intact, Normal affect - Studies Microbiology Data (last 24 hrs): 08/28/22 02:27 Blood - Blood Anaerobic Blood Culture - Final Assessment And Plan - Plan # Severe Sepsis likely secondary to Bilateral Pneumonia # Suspect Superimposed Type B Lactic Acidosis She met sepsis criteria based on HR > 90 bpm and RR > 20 breaths/min, and the suspected source is pneumonia. Severe sepsis is suspected due to concern for tissue hypoperfusion/organ dysfunction based on lactic acid > 2 mmol/L. Her initial lactate was 2.5; however, after bronchodilator treatment, her lactic acidosis increased. For this reason, I suspect that this is a type B lactic acidosis from bronchodilator use, rather than progression into septic shock. She does not appear septic or toxic on physical examination. - Sepsis order set was initiated - Lactate = 2.5 -> 3.9 -> 4.2 -> 5.4 -> 4.5 - Blood cultures drawn before antibiotics were given - Broad spectrum antibiotics started: Ceftriaxone + Doxycycline - In regards to fluids: - 30 mL/kg of IV fluids was not administered given SBP > 90, MAP > 65, and hypervolemia from acute CHF # Acute Chronic Obstructive Pulmonary Disease Exacerbation - Consulted Pulmonary Medicine - recommendations appreciated - Bronchodilators + steroids per Pulm - Consulted Respiratory Therapy - Supplemental oxygen to maintain SpO2 > 92% - Encouraged incentive spirometry - Assess inhaler technique one improved from COPD exacerbation # Acute on Chronic Decompensated Systolic Congestive Heart Failure with Reduced Ejection Fraction (LVEF 45-50%) - Consult Cardiology - recommendations appreciated - Transthoracic echocardiogram = "1. moderate global hypokinesis 2. mild mitral regurgitation, tricuspid regurgitation 3. ejection fraction 40%" - Diuresis with IV furosemide for today - Daily weights - Strict I/O - Cardiac diet, 1.5 L fluid restriction, 2 g Na restriction # Steroid-Induced Hyperglycemia in Type II Diabetes Mellitus # Diabetic Neuropathy - Continue insulin glargine 52 units + correction scale insulin - Continue home gabapentin # Coronary Artery Disease s/p PCI and CABG # Hypertension # Hyperlipidemia # Obesity - BMI 33.8 kg/m2 - Stable - Continue home aspirin, atorvastatin - PRN hydralazine - Hold beta-blockers given acute COPD exacerbation - Hold ALTA-I/ARB given decreased creatinine clearance # Chronic Kidney Disease Stage III - Creatinine near baseline - Urinalysis = 4+ glucosuria, trace blood, 75 leukocyte esterase - IV diuretics as mentioned above - Monitor creatinine and urine output - Renally dose medications # Iron Deficiency Anemia - Continue ferrous gluconate Mario Kumar M.D.
[2022-08-29] MEDS ORDERED: INSULIN -REGULAR HUMAN 50 UNIT/0.5 ML ML IV ONE (11:45)
[2022-08-29 17:34] LABS: Hematocrit 25.1 % (36.0-45.0)
[2022-08-29] MEDS: GABAPENTIN 300 MG CAP PO SCH (21:00)
[2022-08-29] MEDS: ATORVASTATIN 40 MG TAB PO SCH (21:13)
[2022-08-29] MEDS: INSULIN GLARGINE 100 UNIT/ML SQ SCH (21:15)
[2022-08-30] MEDS: IPRATROPIUM BROM 0.5MG/2.5ML NEB SCH ×4 (01:45→20:00)
[2022-08-30] MEDS: ALBUTEROL 2.5 MG/3 ML NEB SOL NEB SCH ×2 (01:45→07:50)
[2022-08-30] MEDS: DOXYCYCLINE 100 MG in NA CHLORIDE 0.9% 100 ML IVPB SCH (05:44)
[2022-08-30 06:32] LABS: Potassium 4.5 mmol/L (3.5-5.1)
[2022-08-30] MEDS: FERROUS GLUCONATE 324 MG TAB PO SCH (08:15)
[2022-08-30] MEDS: INSULIN -REGULAR HUMAN 50 UNIT/0.5 ML ML SQ SCH ×4 (08:15→21:03)
[2022-08-30] MEDS: FUROSEMIDE 40 MG/4 ML VIAL IV SCH (08:15)
[2022-08-30] MEDS: CEFTRIAXONE 1,000 MG in NA CHLORIDE 0.9% 50 ML IVPB SCH (08:15)
[2022-08-30] MEDS: ASPIRIN 81 MG CHEWABLE TABLET PO SCH (08:15)
[2022-08-30] MEDS: HEPARIN 5000 UNIT/ML 1 ML VIAL SQ SCH (08:15)
[2022-08-30] MEDS: METHYLPREDNISOLONE 40 MG INJ IV SCH (08:16)
--- NOTE | 2022-08-30 10:31 | P.CNS ---
Date of Consult: 08/30/22 Reason for Consult: COPD exacerbation Chief Complaint: SOB History of Present Illness: Patient is 77 years of age with a history of COPD mated with shortness of breath and has a metabolic syndrome including coronary artery disease [place] any fever chills no cough or sputum. She does have a history of COPD uses Spiriva at home intolerant to albuterol inhaler and requesting a nebulizer as an ex-smoker feeling a little better Allergies ciprofloxacin [From Cipro] Allergy (Intermediate, Verified 08/28/22 14:56) Itching Home Medications: Insulin Glargine Human [Lantus*] 52 units SQ BID 05/09/18 Losartan Potassium 25 mg PO DAILY 12/27/21 Albuterol Inhaler [Ventolin Inhaler] 2 puff IH Q6H PRN 08/28/22 Clopidogrel Bisulfate [Plavix] 75 mg PO DAILY 08/28/22 Furosemide [Lasix] 40 mg PO DAILY 08/28/22 Hydrocodone Bit/Acetaminophen [Hydrocodon-Acetaminoph 7.5-325] 1 each PO BID 08/28/22 Metoprolol Succinate [Toprol Xl] 50 mg PO DAILY 08/28/22 - Past Medical/Surgical History Diabetic: Yes -: Hypertension -: CHF -: IDDM -: neuropathy -: hyperlipidemia -: CAD -: NC -: COPD -: cardiac catheterization -: Coronary artery bypass grafting -: Bilateral knee surgery - Family History Mother Medical History: Diabetes Father Medical History: Diabetes Notes: neuropathy - Social History Smoking Status: Former smoker Alcohol use: No CD- Drugs: No Caffeine use: No Place of Residence: Home Review of Systems 10-point ROS is otherwise unremarkable General: Weakness Respiratory: Cough, Shortness of Breath Physical Examination Temp Pulse Resp BP Pulse Ox 96.9 F 96 H 19 136/66 98 08/30/22 08:00 08/30/22 08:00 08/30/22 08:00 08/30/22 08:00 08/30/22 08:00 General: Alert, In no apparent distress, Oriented x3 Neck: Supple Respiratory: Diminished Cardiovascular: No edema, Regular rate/rhythm, Normal S1 S2 Gastrointestinal: Normal bowel sounds, Soft and benign Musculoskeletal: No clubbing, No swelling, No contractures - Problems (1) Chronic obstructive pulmonary disease with (acute) exacerbation Current Visit: No Status: Acute Plan: Patient is 77 years of age with a history of COPD admitted with exacerbation also has metabolic syndrome including coronary artery disease she does take Spiriva at home a trial of Dulera while she is in the hospital patient is anemic renal failure presumed chronic CT scan reviewed seems to have a small effusion presumed chronic renal effusion on the right side patient has congestive heart failure trial of Dulera reduce dose of steroids changed to Augmentin continue with IV Lasix echocardiogram shows ejection fraction's current need higher dose of diuretics at home recommend 80 mg daily room air oxygenation is satisfactory she will not qualify for home O2 follow-up with me in 2 weeks nebulizer has been ordered she does have breathing treatments at home intolerant to albuterol inhaler
[2022-08-30] MEDS ORDERED: ALBUTEROL 2.5 MG/3 ML NEB SOL NEB PRN (10:34)
[2022-08-30] MEDS ORDERED: NITROGLYCERIN 0.4 MG/TAB SL PRN (15:51)
--- NOTE | 2022-08-30 16:36 | EKG ---
Test Date: 2022-08-28 Test Time: 02:16:02 Iron Bender: CLOVER MEASUREMENT RESULTS: Intervals: Rate: 102 VA: 172 QRSD: 80 QT: 326 QTc: 424 [place]: P: 87 VA: 172 QRS: 8 T: 94 INTERPRETIVE STATEMENTS: Sinus tachycardia Anteroseptal infarct, age undetermined Abnormal ECG Compared to ECG 12/27/2021 12:49:58 Sinus rhythm no longer present ST (T wave) deviation no longer present Possible ischemia no longer present Myocardial infarct finding still present Electronically Signed On 08-30-22 16:34:23 COMPUTER SECURITY MANAGER by Edwin Dia
--- NOTE | 2022-08-30 17:55 | P.PN ---
Subjective Date of Service: 08/30/22 Chief Complaint: SOB No acute events overnight. She reports that her shortness of breath and cough, but states that this has improved. She denies chest pain or palpitations. Review of Systems 10-point ROS is otherwise unremarkable Respiratory: Cough, Dry, Shortness of Breath Physical Examination - Vital Signs Temperature: 97.8 F Blood Pressure: 141/69 Pulse: 113 Respirations: 20 Pulse Ox (%): 95 Assessment And Plan - Plan - Physical Exam General: Alert, In no apparent distress, Oriented x3 HEENT: Atraumatic, PERRLA, Mucous membr. moist/pink, EOMI, Sclerae nonicteric Neck: JVD not distended Respiratory: Diminished (bilateral bases), Rhonchi/gurgles Cardiovascular: Regular rate/rhythm, Normal S1 S2, No gallops, No rubs, No murmurs, Edema (trace) Gastrointestinal: Normal bowel sounds, Soft and benign, Non-distended, No tenderness, No rebound, No guarding Musculoskeletal: No clubbing Integumentary: No rashes Neurological: Normal speech, Cranial nerves 3-12 intact, Normal affect # Severe Sepsis likely secondary to Bilateral Pneumonia # Suspect Superimposed Type B Lactic Acidosis She met sepsis criteria based on HR > 90 bpm and RR > 20 breaths/min, and the suspected source is pneumonia. Severe sepsis is suspected due to concern for tissue hypoperfusion/organ dysfunction based on lactic acid > 2 mmol/L. Her initial lactate was 2.5; however, after bronchodilator treatment, her lactic acidosis increased. For this reason, I suspect that this is a type B lactic acidosis from bronchodilator use, rather than progression into septic shock. She does not appear septic or toxic on physical examination. - Sepsis order set was initiated - Lactate = 2.5 -> 3.9 -> 4.2 -> 5.4 -> 4.5 - Blood cultures drawn before antibiotics were given - Broad spectrum antibiotics started: Ceftriaxone + Doxycycline - In regards to fluids: - 30 mL/kg of IV fluids was not administered given SBP > 90, MAP > 65, and hypervolemia from acute CHF - Home oxygen eval - Repeat chest x-ray in the morning - Consult PT # Acute Chronic Obstructive Pulmonary Disease Exacerbation - Consulted Pulmonary Medicine - recommendations appreciated - Bronchodilators + steroids per Pulm - Consulted Respiratory Therapy - Supplemental oxygen to maintain SpO2 > 92% - Encouraged incentive spirometry - Assess inhaler technique one improved from COPD exacerbation # Acute on Chronic Decompensated Systolic Congestive Heart Failure with Reduced Ejection Fraction (LVEF 45-50%) - Consult Cardiology - recommendations appreciated - Transthoracic echocardiogram = "1. moderate global hypokinesis 2. mild mitral regurgitation, tricuspid regurgitation 3. ejection fraction 40%" - Switch from IV to PO furosemide - Daily weights - Strict I/O - Cardiac diet, 1.5 L fluid restriction, 2 g Na restriction # Steroid-Induced Hyperglycemia in Type II Diabetes Mellitus # Diabetic Neuropathy - Continue insulin glargine 52 units + correction scale insulin - Continue home gabapentin # Coronary Artery Disease s/p PCI and CABG # Hypertension # Hyperlipidemia # Obesity - BMI 33.8 kg/m2 - Stable - Continue home aspirin, atorvastatin - PRN hydralazine - Hold beta-blockers given acute COPD exacerbation - Hold ALTA-I/ARB given decreased creatinine clearance # Chronic Kidney Disease Stage III - Creatinine near baseline - Urinalysis = 4+ glucosuria, trace blood, 75 leukocyte esterase - IV diuretics as mentioned above - Monitor creatinine and urine output - Renally dose medications # Iron Deficiency Anemia - Continue ferrous gluconate Mario Kumra M.D.
--- NOTE | 2022-08-30 19:05 | CON ---
Date of Consultation: 08/29/2022 Reason For Consultation: Shortness of breath. History Of Present Illness: This 77-year-old female with history of COPD, diabetes, coronary artery disease, congestive heart failure, dyslipidemia, and status post CABG in the past presented with shor tness of breath that is worsening for about 5 days prior to the admission along with cough and conges tion. Generally feeling weak and has some nausea with chills. No vomiting. No dysuria, polyuria, o r urinary urgency. All other systems reviewed and were negative. Past Medical History: As outlined above in the HPI. Medications For Consultation: Refer to reconciliation sheet for detailed list. Allergies: CIPROFLOXACIN. Family History: No premature coronary artery disease or cancer. Social History: She is an ex-smoker. Does not drink or use any drugs. Review of Systems: All systems were reviewed and they were negative except for mentioned in HPI. Physical Examination: Vital Signs: Reviewed. Head And Neck: Pupils are equal and reactive to light. Intact eye movements. No JVD. No cervical lymphadenopathy. Neck is supple. Thyroid is not enlarged. Lungs: Clear to auscultation bilaterally. No rhonchi, wheezing, or crackles. No accessory muscle u se. Heart: Regular rate and rhythm. No extra sounds. Abdomen: Soft, nontender. Bowel sounds positive. No organomegaly. No masses or hernia. No rigidi ty or rebound. Extremities: No edema, clubbing, or cyanosis. Intact pulses. Skin: No rashes. Neurologic: Alert, awake, and oriented x3. No acute focal deficits appreciated. Investigations: Her EF is 40% with moderate global hypokinesis. BUN is 32 and creatinine 1.62. Assessment And Recommendation: 1.Shortness of breath, likely due to chronic obstructive pulmonary disease exacerbation and upper re spiratory tract infection. Doing clinically better. She is definitely wheezing. Continue current m anagement. From the heart standpoint, I agree with IV diuresis; however, carefully monitor BUN, crea tinine, and electrolytes. 2.Qflyp-[id number] systolic heart failure exacerbation. I agree with Lasix and recommend ischemia w orkup, which can be done as an outpatient with a stress test. Of note, her troponins have been negat issa. SR/MODL Voice ID: [id number] Report ID: [id number]
--- NOTE | 2022-08-30 19:47 | PN ---
Date of Progress Note: 08/30/2022 Subjective: Seen at bedside, doing clinically well. She is having much less shortness of breath, bu t she is having some chest pain on and off in the left upper chest. Review of Systems: Positive chest pain. Minimal cough. No nausea, vomiting, or diarrhea. No abdominal pain. No dysur ia, polyuria, or urgency. No skin rash or headache. All other systems reviewed and they are negativ e. Physical Examination: Vital Signs: Reviewed. Head and Neck: Pupils are equal and reactive to light. Intact eye movements. No JVD. No cervical lymphadenopathy. Neck is supple. Thyroid is not enlarged. Lungs: Clear to auscultation. No accessory muscle use or muscle retraction. Heart: Regular rate and rhythm. No extra sounds. Abdomen: Soft, nontender. Bowel sounds positive. No organomegaly. No masses or hernia. No rigidi ty or rebound. Extremities: No clubbing or cyanosis. Intact pulses. Skin: No rashes. Neurologic: Alert, awake, and oriented x3. No acute distress. Investigation: Labs reviewed. Assessment And Recommendation: 1.Shortness of breath due to chronic obstructive pulmonary disease exacerbation, pneumonia and proba rajat component of congestive heart failure. I agree with antibiotics; however, we will change the Las ix to orally. See below. 2.Systolic congestive heart failure. She seems to be getting better and euvolemic. Switch Lasix to oral 40 mg twice a day and monitor BUN, creatinine, and electrolytes. 3.Chronic kidney disease. Creatinine has been stable. Switch Lasix as outlined above. 4.Chest pain. Please obtain a troponin. We will order one now and further recommendations barrett woodward SR/SUNNY Voice ID: [id number] Report ID: [id number]
[2022-08-30] MEDS ORDERED: HEPARIN/D5W 25,000 UNIT/500 ML BAG IV SCH (20:00)
[2022-08-30] MEDS: AMOX/K CLAV 500 MG TAB PO SCH (20:07)
[2022-08-30] MEDS: predniSONE 20 MG TAB PO SCH (20:08)
[2022-08-30] MEDS: HYDROCODONE/APAP 5/325 MG TAB PO PRN (20:08)
[2022-08-30] MEDS: ATORVASTATIN 40 MG TAB PO SCH (20:08)
[2022-08-30] MEDS: INSULIN GLARGINE 100 UNIT/ML SQ SCH (21:04)
[2022-08-30] MEDS: DULERA 200/5 (MOMETASONE/FORMOTEROL) INHALER IH SCH (21:04)
[2022-08-30 22:31] LABS: Protime INR 1.21
[2022-08-31] MEDS: IPRATROPIUM BROM 0.5MG/2.5ML NEB SCH ×4 (01:20→20:20)
[2022-08-31 02:33] LABS: Potassium 4.6 mmol/L (3.5-5.1)
--- NOTE | 2022-08-31 07:23 | RAD REPORT ---
EXAM DESCRIPTION: RAD - Chest Single View - 08/31/2022 5:57 am CLINICAL HISTORY: follow-up COMPARISON: Chest Single View dated 08/28/2022; Chest Pa And Lat (2 Views) dated 05/07/2022; Chest Sin gle View dated 12/27/2021; Chest Single View dated 10/14/2019; CHEST PA AND LAT 2 VIEW dated 05/08/2012; C hest For Pe Angio dated 08/28/2022 FINDINGS: Lines: None. Lungs: Probable background of edema. Left basilar opacity likely reflecting atelectasis as a result o f the effusion. Subsegmental atelectasis versus fluid trapped in the right minor fissure. Right apica l scarring. Pleural: Small to moderate left pleural effusion. Cardiac: Cardiomegaly. Mediastinum: Within normal limits. Bones: No acute fractures. Other: Sternotomy. IMPRESSION: Similar aeration of the lungs with small to moderate left pleural effusion and likely un derlying atelectasis. Probable background of edema rather than pneumonia.
[2022-08-31] MEDS: DULERA 200/5 (MOMETASONE/FORMOTEROL) INHALER IH SCH ×2 (08:14→20:21)
[2022-08-31] MEDS: FUROSEMIDE 40 MG TABLET PO SCH ×2 (08:14→16:27)
[2022-08-31] MEDS: predniSONE 20 MG TAB PO SCH ×2 (08:14→20:20)
[2022-08-31] MEDS: ASPIRIN 81 MG CHEWABLE TABLET PO SCH (08:14)
[2022-08-31] MEDS: AMOX/K CLAV 500 MG TAB PO SCH ×2 (08:14→20:20)
[2022-08-31] MEDS: INSULIN -REGULAR HUMAN 50 UNIT/0.5 ML ML SQ SCH ×4 (08:14→20:34)
[2022-08-31] MEDS: FERROUS GLUCONATE 324 MG TAB PO SCH (09:45)
--- NOTE | 2022-08-31 13:41 | P.PN ---
Subjective Date of Service: 08/31/22 Chief Complaint: SOB Yesterday afternoon, she began reporting left shoulder pain, relieved by nitroglycerin. A troponin was ordered and returned at 1021.2. Dr. Dia was notified and he advised treating her for an NSTEMI with a heparin drip. He will consider [facility] on 09/02/2022. She denies chest pain or palpitations this morning. She reports mild shortness of breath. Review of Systems 10-point ROS is otherwise unremarkable Respiratory: Shortness of Breath Physical Examination - Vital Signs Temperature: 97.3 F Blood Pressure: 144/67 Pulse: 88 Respirations: 19 Pulse Ox (%): 94 Assessment And Plan - Plan - Physical Exam General: Alert, In no apparent distress, Oriented x3 HEENT: Atraumatic, EOMI, Sclerae nonicteric Neck: JVD not distended Respiratory: Diminished, Faint rhonchi/gurgles Cardiovascular: Regular rate/rhythm, Normal S1 S2, No gallops, No rubs, No murmurs, Edema (trace) Gastrointestinal: Normal bowel sounds, Soft and benign, Non-distended, No tenderness, No rebound, No guarding Musculoskeletal: No clubbing Integumentary: No rashes Neurological: Normal speech, Cranial nerves 3-12 intact, Normal affect # Severe Sepsis likely secondary to Bilateral Pneumonia # Suspect Superimposed Type B Lactic Acidosis She met sepsis criteria based on HR > 90 bpm and RR > 20 breaths/min, and the suspected source is pneumonia. Severe sepsis is suspected due to concern for tissue hypoperfusion/organ dysfunction based on lactic acid > 2 mmol/L. Her initial lactate was 2.5; however, after bronchodilator treatment, her lactic acidosis increased. For this reason, I suspect that this is a type B lactic acidosis from bronchodilator use, rather than progression into septic shock. She does not appear septic or toxic on physical examination. - Sepsis order set was initiated - Lactate = 2.5 -> 3.9 -> 4.2 -> 5.4 -> 4.5 - Blood cultures drawn before antibiotics were given - Broad spectrum antibiotics started: Ceftriaxone + Doxycycline - In regards to fluids: - 30 mL/kg of IV fluids was not administered given SBP > 90, MAP > 65, and hypervolemia from acute CHF - Home oxygen eval - Repeat chest x-ray = "similar aeration of the lungs with small to moderate le ft pleural effusion and likely underlying atelectasis. Probable background of edema rather than pneumonia." - Consult PT # Non-ST Segment Elevation Myocardial Infarction - Evaluation thus far: - EKG: without STEMI criteria, trend - Serial troponin: 15.0 -> 1021.2 -> 1116.3 -> 1114.7 - Transthoracic echocardiogram = "1. moderate global hypokinesis 2. mild mitral regurgitation, tricuspid regurgitation 3. ejection fraction 40%" - Management plan: - Consult Cardiology - recommendations appreciated - Continue aspirin, atorvastatin, heparin drip - Hold beta-van for now given acute COPD + acute CHF exacerbations - Hold ALTA-inhibitor/ARB, statin for now given elevated creatinine # Acute Chronic Obstructive Pulmonary Disease Exacerbation - Consulted Pulmonary Medicine - recommendations appreciated - Bronchodilators + steroids per Pulm - Consulted Respiratory Therapy - Supplemental oxygen to maintain SpO2 > 92% - Encouraged incentive spirometry - Assess inhaler technique one improved from COPD exacerbation # Acute on Chronic Decompensated Systolic Congestive Heart Failure with Reduced Ejection Fraction (LVEF 40%) - Consult Cardiology - recommendations appreciated - Transthoracic echocardiogram = "1. moderate global hypokinesis 2. mild mitral regurgitation, tricuspid regurgitation 3. ejection fraction 40%" - Switched to PO furosemide - Daily weights - Strict I/O - Cardiac diet, 1.5 L fluid restriction, 2 g Na restriction # Steroid-Induced Hyperglycemia in Type II Diabetes Mellitus # Diabetic Neuropathy - Continue insulin glargine 52 units + correction scale insulin - Continue home gabapentin # Coronary Artery Disease s/p PCI and CABG # Hypertension # Hyperlipidemia # Obesity - BMI 33.8 kg/m2 - Stable - Continue home aspirin, atorvastatin - PRN hydralazine - Hold beta-blockers given acute COPD exacerbation - Hold ALTA-I/ARB given decreased creatinine clearance # Chronic Kidney Disease Stage III - Creatinine near baseline - Urinalysis = 4+ glucosuria, trace blood, 75 leukocyte esterase - IV diuretics as mentioned above - Monitor creatinine and urine output - Renally dose medications # Iron Deficiency Anemia - Continue ferrous gluconate Mario Kumar M.D.
--- NOTE | 2022-08-31 14:12 | PN ---
Date of Progress Note: 08/31/2022 Subjective: Seen by bedside. Doing clinically well. On and off chest pain that has stabilized. Review of Systems: No active chest pain at the present time. Had chest pain earlier, responded to nitroglycerin. No na usea, vomiting, diarrhea, dysuria, polyuria, or urinary urgency. All other systems reviewed and they were negative. Physical Examination: Vital Signs: Reviewed. Head and Neck: Pupils are equal, reactive to light. Intact eye movements. No JVD. No cervical lym phadenopathy. Neck is supple. Thyroid is not enlarged. Lungs: Clear to auscultation bilaterally. No rhonchi, wheezing, or crackles. No accessory muscle u se. Heart: Regular rate and rhythm. No extra sounds. Abdomen: Soft, nontender. Bowel sounds positive. No organomegaly. No masses or hernia. No rigidi ty or rebound. Extremities: No edema, clubbing, or cyanosis. Intact pulses. Skin: No rash. Neurologic: Alert, awake, oriented x3. No acute focal deficits appreciated. Investigations: Last troponin is 1114. Assessment And Recommendations: 1.Non-ST elevation myocardial infarction. Continue on heparin drip, baby aspirin and nitroglycerin as needed as well as high-dose statin. Plan for coronary angiogram on Friday. 2.Acute bronchitis versus pneumonia, on antibiotics and then recovering slowly. Continue current ma nagement. 3.Chronic obstructive pulmonary disease exacerbation, improved significantly. 4.Acute on chronic congestive heart failure exacerbation. She is euvolemic, now on oral Lasix. Mon itor BUN and creatinine closely. SR/MODL Voice ID: [id number] Report ID: [id number]
[2022-08-31] MEDS: ATORVASTATIN 40 MG TAB PO SCH (20:23)
[2022-08-31] MEDS: HEPARIN/D5W 25,000 UNIT/500 ML BAG IV PRN (20:23)
[2022-08-31] MEDS: HYDROCODONE/APAP 5/325 MG TAB PO PRN (20:25)
[2022-08-31] MEDS: INSULIN GLARGINE 100 UNIT/ML SQ SCH (20:34)
[2022-09-01] MEDS: IPRATROPIUM BROM 0.5MG/2.5ML NEB SCH ×4 (02:10→19:50)
[2022-09-01 05:46] VITALS: BMI 33.1
[2022-09-01 05:49] LABS: Absolute Lymphocytes (CBC) 0.7 K/uL (0.7-4.9); Hematocrit 25.2 % (36.0-45.0); Lymphocytes % 10.5 % (15.3-44.8); MCV 89.8 fL (80-100); MPV 8.5 fL (7.6-11.3); RBC Red Blood Cell Count 2.81 M/uL (3.86-4.86)
[2022-09-01 05:54] LABS: Potassium 4.6 mmol/L (3.5-5.1)
[2022-09-01 08:19] LABS: Blood Morphology Comment NOT SEEN (NOT SEEN); Platelet Estimate ADEQ
[2022-09-01] MEDS: AMOX/K CLAV 500 MG TAB PO SCH ×2 (08:35→20:29)
[2022-09-01] MEDS: FERROUS GLUCONATE 324 MG TAB PO SCH (08:35)
[2022-09-01] MEDS: predniSONE 20 MG TAB PO SCH ×2 (08:35→20:30)
[2022-09-01] MEDS: FUROSEMIDE 40 MG TABLET PO SCH ×2 (08:35→17:30)
[2022-09-01] MEDS: ASPIRIN 81 MG CHEWABLE TABLET PO SCH (08:35)
[2022-09-01] MEDS: DULERA 200/5 (MOMETASONE/FORMOTEROL) INHALER IH SCH ×2 (08:36→21:00)
[2022-09-01] MEDS: INSULIN -REGULAR HUMAN 50 UNIT/0.5 ML ML SQ SCH ×4 (08:36→20:31)
[2022-09-01] MEDS: ATORVASTATIN 40 MG TAB PO SCH (20:30)
[2022-09-01] MEDS: INSULIN GLARGINE 100 UNIT/ML SQ SCH (20:31)
[2022-09-01] MEDS: HYDROCODONE/APAP 5/325 MG TAB PO PRN (20:38)
[2022-09-01] MEDS: HEPARIN/D5W 25,000 UNIT/500 ML BAG IV PRN (22:22)
[2022-09-02] MEDS: IPRATROPIUM BROM 0.5MG/2.5ML NEB SCH ×4 (01:55→20:35)
[2022-09-02] MEDS ORDERED: LIDOCAINE 1% 20 ML MDV ONE (06:35)
[2022-09-02] MEDS ORDERED: FENTANYL CITR 100 MCG/2 ML ONE (06:35)
[2022-09-02] MEDS ORDERED: MIDAZOLAM HCL 2 MG/2 ML INJ ONE (06:35)
[2022-09-02] MEDS ORDERED: HEPA 1000U/500MLS 2,000 UNIT/1,000 ML BAG IV ONE (06:35)
[2022-09-02] MEDS ORDERED: NA CHLORIDE 0.9% 0 ML ONE (06:36)
[2022-09-02] MEDS ORDERED: NITROGLYCERIN/D5W 25 MG/250 ML BTL IV ONE (06:36)
[2022-09-02] MEDS ORDERED: NITROGLYCERIN 100 MCG/ML SYR (for cath lab use only) IV ONE (06:36)
[2022-09-02] MEDS ORDERED: ATROPINE SULF 1 MG/10 ML SYR IV ONE (06:36)
[2022-09-02] MEDS ORDERED: NA CHLORIDE 0.9% 0 ML IV ONE (06:36)
[2022-09-02] MEDS ORDERED: NA CHLORIDE 0.9% 1,000 ML ONE (06:37)
[2022-09-02] MEDS: ASPIRIN 81 MG CHEWABLE TABLET PO SCH (06:38)
[2022-09-02] MEDS: INSULIN -REGULAR HUMAN 50 UNIT/0.5 ML ML SQ SCH ×4 (07:30→19:45)
[2022-09-02] MEDS ORDERED: ACETYLCYST 20% 4 ML VIAL IH ONE (09:38)
[2022-09-02] MEDS: FUROSEMIDE 40 MG TABLET PO SCH ×2 (10:22→17:03)
[2022-09-02] MEDS: AMOX/K CLAV 500 MG TAB PO SCH ×2 (10:22→19:44)
[2022-09-02] MEDS: predniSONE 20 MG TAB PO SCH ×2 (10:22→19:44)
[2022-09-02] MEDS: FERROUS GLUCONATE 324 MG TAB PO SCH (10:23)
[2022-09-02] MEDS: DULERA 200/5 (MOMETASONE/FORMOTEROL) INHALER IH SCH ×2 (10:24→20:02)
--- NOTE | 2022-09-02 12:55 | EKG ---
Test Date: 2022-08-30 Test Time: 19:20:33 Plasterer Journeyman: MARIELLE MEASUREMENT RESULTS: Intervals: Rate: 106 ND: 160 QRSD: 94 QT: 340 QTc: 451 [place]: P: ND: 160 QRS: 4 T: 157 INTERPRETIVE STATEMENTS: Sinus tachycardia Septal infarct, age undetermined Abnormal ECG Compared to ECG 08/28/2022 02:16:02 No significant changes Electronically Signed On 09-02-22 12:51:02 LINING CUTTER by Edwin Dia
[2022-09-02] MEDS: HYDROCODONE/APAP 5/325 MG TAB PO PRN ×2 (13:00→19:57)
--- NOTE | 2022-09-02 16:41 | OP ---
Surgeon: Robson Ramos MD Shape Carver: Sharyn Marks. The patient admitted to Dr. Kumar and Dr. Rain for non-STEMI, brought to the manager labor delivery today on 2021. Procedure In Detail: In the manager labor delivery, she was prepped and draped in routine sterile fashion. She wa s given Versed and fentanyl for sedation. She was given Mucomyst for renal insufficiency. A 6-Frenc h sheath was introduced in the right common femoral artery successfully using the Seldinger technique and 10 cc of Xylocaine. Angiography there showed a proximal RCA stent, proximal SFA stent that was actually patent. We decided to hold pressure for hemostasis. Iban catheter left and right were u sed to do the heart catheterization. The Iban left catheter cannulated the left main. She had a completely occluded circumflex and LAD. The JR4 catheter cannulated the RCA, which had a 90% proxima l stenosis. The JR4 catheter was then used to cannulate the OM graft, which was completely occluded and she had a patent RCA graft. She had a patent NIÑO to the LAD without any stenosis. The JR4 also was used to do an LV-gram. She had a left ventricular end-diastolic pressure of 8 mmHg. No gradien t. Ejection fraction of 40% to 45% She was also noted to have a patent left subclavian stent. There were no complications. Blood Loss: 5 cc. Postoperative Diagnosis: Severe peripheral arterial disease, status post stent of the right SFA, karrie nt of the left subclavian artery in the past. Both of those are patent. She had a patent NIÑO to th e LAD, patent RCA graft to the RCA and occluded OM graft. Plan: For medical therapy. Anesthesia: Total conscious sedation 60 minutes. Plan for her to go home later on today on her home regimen and we will see her in the office in 2 e ks. JODIE/SUNNY Voice ID: [id number] Report ID: [id number]
[2022-09-02] MEDS: ATORVASTATIN 40 MG TAB PO SCH (19:44)
[2022-09-02] MEDS: INSULIN GLARGINE 100 UNIT/ML SQ SCH (19:45)
--- NOTE | 2022-09-02 19:59 | PN ---
Date of Progress Note: 09/01/2022 Subjective: Seen at bedside. She is doing well. Still having a lot of chest pain, but with improve ment. Review of Systems: On and off chest pain. No nausea, vomiting, diarrhea. No abdominal pain. No dysuria, polyuria, or urinary urgency. All other systems reviewed and negative. Physical Examination: Vital Signs: Reviewed. Head and Neck: Pupils are equal, reactive to light. Intact eye movements. No JVD. No cervical lym phadenopathy. Neck is supple. Thyroid is not enlarged. Lungs: Clear to auscultation bilaterally. No rhonchi, wheezing, or crackles. No accessory muscle u se. Heart: Regular was irregular. No extra sounds. Abdomen: Soft, nontender. Bowel sounds positive. No organomegaly. No tenderness to palpation. Extremities: No clubbing, cyanosis. Intact pulses. No edema. Skin: No rash. Neurologic: Alert, awake, oriented x3. No focal deficits appreciated. Investigation: Labs were reviewed. Assessment And Recommendations: 1.Xbl-[id number]-efmktcvot myocardial infarction. Continue current management. Plan for coronary angiogram tomorrow. 2.Chronic obstructive pulmonary disease exacerbation, likely due to bronchitis or pneumonia and she is improving. Continue current management. SR/MODL Voice ID: [id number] Report ID: [id number]
--- NOTE | 2022-09-02 20:14 | PN ---
Date of Progress Note: 09/02/2022 Subjective: Seen by bedside, doing clinically well, status post left heart catheterization today. Review of Systems: No active chest pain, shortness of breath, orthopnea, or cough. No nausea, vomiting, diarrhea. No a bdominal pain. No dysuria, polyuria, or urgency. All other systems reviewed and they were negative except for mentioned in HPI. Physical Examination: Vital signs: Reviewed. Head and Neck: Pupils are equal, reactive to light. Intact eye movements. No JVD. No cervical lym phadenopathy. Neck is supple. Thyroid is not enlarged. Lungs: Clear to auscultation bilaterally. No rhonchi, rales, or crackles. No accessory muscle use. Heart: Regular rate and rhythm. No extra sounds. Abdomen: Soft, nontender. Bowel sounds positive. No organomegaly. No masses or hernia. No reboun d or rigidity. Extremities: No clubbing, cyanosis. Intact pulses. Skin: No rashes. Neurologic: Alert, awake, and oriented x3. No acute focal deficits appreciated. Investigations: Latest BUN 43, creatinine 1.59. Assessment And Recommendation: 1.Non-ST elevation myocardial infarction, status post coronary angiogram today. Two grafts are maldonado nt. OM graft is occluded and the left circumflex is as a ESTATE PLANNING COUNSELOR. At this point, I recommend medical ubaldo hensley and if patient is to have chest pain, we might consider a ESTATE PLANNING COUNSELOR intervention as an outpatient. 2.Congestive heart failure and agree with Lasix to be continued. 3.Dyslipidemia. Continue statin. 4.Disposition planning: From Cardiology standpoint, patient can be released and follow up as an out patient with Dr. Ramos. /MODL Voice ID: [id number] Report ID: [id number]
[2022-09-03] MEDS: IPRATROPIUM BROM 0.5MG/2.5ML NEB SCH ×2 (01:50→08:42)
[2022-09-03 05:17] VITALS: TEMP 97.2
[2022-09-03] MEDS: INSULIN -REGULAR HUMAN 50 UNIT/0.5 ML ML SQ SCH (07:30)
[2022-09-03 08:17] VITALS: BP 126/47
[2022-09-03] MEDS: FUROSEMIDE 40 MG TABLET PO SCH (09:00)
[2022-09-03] MEDS: DULERA 200/5 (MOMETASONE/FORMOTEROL) INHALER IH SCH (09:00)
[2022-09-03] MEDS: FERROUS GLUCONATE 324 MG TAB PO SCH (09:00)
[2022-09-03] MEDS: predniSONE 20 MG TAB PO SCH (09:00)
[2022-09-03] MEDS: AMOX/K CLAV 500 MG TAB PO SCH (09:00)
[2022-09-03] MEDS: ASPIRIN 81 MG CHEWABLE TABLET PO SCH (09:00)
--- NOTE | 2022-09-03 10:18 | P.PN ---
Date of Service: 09/01/22 Subjective Patient is scheduled for left heart cath today. We will follow-up with cardiology regarding plan of care after the heart catheterization. Review of Systems 10 point review of system otherwise unremarkable Physical Examination - Vital Signs Reviewed - Physical Exam General: Alert, In no apparent distress, Oriented x3 Respiratory: Diminished, Faint rhonchi/gurgles Cardiovascular: Regular rate/rhythm, Normal S1 S2, No gallops, No rubs, No murmurs, Edema (trace) Gastrointestinal: Normal bowel sounds, Soft and benign, Non-distended, No tenderness, No rebound, No guarding Neurological: No focal deficits Assessment And Plan - Assessment # Severe Sepsis likely secondary to Bilateral Pneumonia # Suspect Superimposed Type B Lactic Acidosis # Non-ST Segment Elevation Myocardial Infarction # Acute Chronic Obstructive Pulmonary Disease Exacerbation # Acute on Chronic Decompensated Systolic Congestive Heart Failure with Reduced Ejection Fraction (LVEF 40%) # Steroid-Induced Hyperglycemia in Type II Diabetes Mellitus # Diabetic Neuropathy # Coronary Artery Disease s/p PCI and CABG # Hypertension # Hyperlipidemia # Obesity - BMI 33.8 kg/m2 # Iron Deficiency Anemia Plan: 1. Continue with IV antibiotics 2. Awaiting culture results 3. Repeat chest x-ray 4. [facility] today 5. Appreciate cardiology consultation; with cardiac meds 6. Continue with nebs as needed 7. O2 per protocol 8. Hep-Lock IV 9. Repeat labs including CBC and renal function in a.m. 10. GI and DVT prophylaxis
[2022-09-03 10:19] VITALS: O2SAT 98
--- NOTE | 2022-09-03 10:22 | P.PN ---
Date of Service: 09/02/22 Subjective Patient continues to improve. Clinical symptoms are much better. Arteriogram and left heart catheterization revealed for arterial disease some other occlusion of the coronary arteries but a lot of the grafts were patent. Ejection fraction of 40 to 45%. Anticipate discharge in the morning. Review of Systems 10 point review of system otherwise unremarkable Physical Examination - Vital Signs Reviewed - Physical Exam General: Alert, In no apparent distress, Oriented x3 Respiratory: Diminished, Faint rhonchi/gurgles Cardiovascular: Regular rate/rhythm, Normal S1 S2, No gallops, No rubs, No murmurs, Edema (trace) Gastrointestinal: Normal bowel sounds, Soft and benign, Non-distended, No tenderness, No rebound, No guarding Neurological: No focal deficits Assessment And Plan - Assessment # Severe Sepsis likely secondary to Bilateral Pneumonia # Suspect Superimposed Type B Lactic Acidosis # Non-ST Segment Elevation Myocardial Infarction # Acute Chronic Obstructive Pulmonary Disease Exacerbation # Acute on Chronic Decompensated Systolic Congestive Heart Failure with Reduced Ejection Fraction (LVEF 40%) # Steroid-Induced Hyperglycemia in Type II Diabetes Mellitus # Diabetic Neuropathy # Coronary Artery Disease s/p PCI and CABG # Hypertension # Hyperlipidemia # Obesity - BMI 33.8 kg/m2 # Iron Deficiency Anemia Plan: 1. Continue with IV antibiotics 2. Awaiting culture results 3. Repeat chest x-ray 4. Arteriogram completed along with cardiac catheterization. 5. Appreciate cardiology consultation; with cardiac meds 6. Continue with nebs as needed 7. O2 per protocol 8. Hep-Lock IV 9. Monitor labs 10. GI and DVT prophylaxis
--- NOTE | 2022-09-03 13:39 | PN ---
Date of Progress Note: 09/03/2022 Ms. Ibarra underwent heart catheterization yesterday via right groin approach. Hemostasis was ob tained by holding pressure. Today, she has no hematoma. No cardiac complaint. She is in sinus rhyt hm. Catheterization found a patent NIÑO to the LAD, patent graft to the RCA. She had a completely o ccluded circumflex and completely occluded graft to the OM. She has an ejection fraction of 40% to 4 5% with normal left ventricular end-diastolic pressure. I think Ms. Ibarra can go home today on home medication and we will see her in the office in the near future. We will continue medical thera py. Case was discussed with Dr. Worrell. JODIE/SUNNY Voice ID: [id number] Report ID: [id number]
== END 2022-09-03 12:08 | disposition home or self-care (01) | DRG 871 ==
LOC: ER 02:08 → ERHOLD 08:48 → 4TH 13:46
PROVIDERS: ADMIT Internal Medicine; ATTEND Hospitalist
PROC: 4A023N7 Measurement of Cardiac Sampling and Pressure, Left Heart, Percutaneous Approach (ICD-10-PCS; principal; 2022-09-02)
PROC: B2111ZZ Fluoroscopy of Multiple Coronary Arteries using Low Osmolar Contrast (ICD-10-PCS; 2022-09-02)
DX: A41.9 Sepsis, unspecified organism (principal); I21.4 Non-ST elevation (NSTEMI) myocardial infarction; I50.23 Acute on chronic systolic (congestive) heart failure; J18.9 Pneumonia, unspecified organism; J44.1 Chronic obstructive pulmonary disease with (acute) exacerbation; J44.0 Chronic obstructive pulmonary disease with (acute) lower respiratory infection; E87.20 Acidosis, unspecified; I13.0 Hypertensive heart and chronic kidney disease with heart failure and stage 1 through stage 4 chronic kidney disease, or unspecified chronic kidney disease; R65.20 Severe sepsis without septic shock; N18.32 Chronic kidney disease, stage 3b; E11.22 Type 2 diabetes mellitus with diabetic chronic kidney disease; E11.51 Type 2 diabetes mellitus with diabetic peripheral angiopathy without gangrene; E11.65 Type 2 diabetes mellitus with hyperglycemia; E11.40 Type 2 diabetes mellitus with diabetic neuropathy, unspecified; D63.1 Anemia in chronic kidney disease; E83.42 Hypomagnesemia; I25.10 Atherosclerotic heart disease of native coronary artery without angina pectoris; D50.9 Iron deficiency anemia, unspecified; E78.5 Hyperlipidemia, unspecified; I08.1 Rheumatic disorders of both mitral and tricuspid valves; E66.09 Other obesity due to excess calories; I25.2 Old myocardial infarction; T48.6X5A Adverse effect of antiasthmatics, initial encounter; T38.0X5A Adverse effect of glucocorticoids and synthetic analogues, initial encounter; R09.02 Hypoxemia; Z95.1 Presence of aortocoronary bypass graft; Z88.1 Allergy status to other antibiotic agents; Z95.5 Presence of coronary angioplasty implant and graft; Z79.4 Long term (current) use of insulin; Z79.82 Long term (current) use of aspirin; Z68.33 Body mass index [BMI] 33.0-33.9, adult; Z79.02 Long term (current) use of antithrombotics/antiplatelets; Z28.310 Unvaccinated for COVID-19; Z87.891 Personal history of nicotine dependence; Z79.899 Other long term (current) drug therapy; Z20.822 Contact with and (suspected) exposure to COVID-19
CPT/HCPCS: 0240U; 36415; 71045; 71275; 80048; 80076; 81001; 82947; 83605; 83735; 83880; 84100; 84484; 85014; 85018; 85025; 85610; 85730; 87040; 93005; 93306; 93459; 94640; 96365; 96375; 97161; 99285; C1893; J0456; J0461; J0583; J1644; J1815; J1940; J2250; J2920; J2930; J3010; J3475; J3535; J7030; J7040; J7050; J7512; J7608; J7613; J7614; J7644; Q9967

== ENCOUNTER 2022-10-10 17:04 | Inpatient (IN) | payer OTHER ==
--- OUTSIDE RECORDS SUMMARY | 2022-10-10 17:11 | XMS REPORT | Continuity of Care Document ---
:1945 Author Organization [facility] t Address [address] [place] [address] Care Team Providers Name Role Phone Kj ALEXANDER, Suman Rowley Primary Care Physician [phone] Shawn Quintanilla Attending Clinician Unavailable PRISCILA GUILLORY Attending Clinician Unavailable Priscila Guillory MD Attending Clinician PRISCILA GUILLORY Attending Clinician Unavailable DIANE WHITEHEAD Attending Clinician Unavailable Suman Underwood MD Attending Clinician Lab, Ang - Db Attending Clinician Unavailable SUMAN UNDERWOOD Attending Clinician Unavailable Marin Muller MD Attending Clinician EMI TAFOYA K.HKeith Attending Clinician Unavailable Pob, Adc Lab Main Attending Clinician Unavailable Marion Vu DPM Attending Clinician MARION VU JR Attending Clinician Unavailable Doctor Unassigned, [place] Attending Clinician Unavailable Nilo Jimenez MD Attending Clinician NILO JIMENEZ Attending Clinician Unavailable BRODY PLAZA Attending Clinician Unavailable Cade HUYNH, Sandra [place] Attending Clinician Unavailable Last Huff DO Attending Clinician Tramaine Monique MD Attending Clinician Ashok SABA MD, Michael James Attending Clinician [phone] Yamilet Humphreys MD Attending Clinician Migdalia Gong MD Attending Clinician [phone] Praveena Espinoza Attending Clinician PRAVEENA SMITH Attending Clinician Unavailable PATRICIA RODRÍGUEZ Attending Clinician Unavailable PATRICIA RODRÍGUEZ Attending Clinician Unavailable Lottie ALEXANDER, Emi K.H. Attending Clinician SAHARA RODRIGUEZ Attending Clinician Unavailable BECKIE BEDOYA Attending Clinician Unavailable RENEE REYES Attending Clinician Unavailable Lisseth Salinas Attending Clinician Unavailable LAST HUFF Attending Clinician Unavailable FELY DELACRUZ Attending Clinician Unavailable JOEY EDGE Attending Clinician Unavailable PRISCILA GUILLORY Admitting Clinician Unavailable NILO JIMENEZ Admitting Clinician Unavailable Ashok SABA MD, Michael James Admitting Clinician [phone] SUMAN UNDERWOOD Admitting Clinician Unavailable Lisseth Salinas Admitting Clinician Unavailable KJ WILL Admitting Clinician Unavailable LAST HUFF Admitting Clinician Unavailable Payers Payer Name Policy Type Policy Number Effective Date Ex[place] Date [place] [employer] MEDIC[place] [id number] 2020 00:00:00 WELLMED/UHC DUAL [id number] 2020 COMP HMO D SNP 00:00:00 FORMERLY [facility] [id number] 2021 MEDICAID 00:00:00 MEDICAID [facility] [id number] 2011 00:00:00 WELLMED DUAL [id number] COMPLETE SNP HMO-[facility] TMHP-MEDICAID - [id number] MEDICAID Problems Condition Condition Condition Status Onset Resolution Last Treating Co mments Source Name Details Category Date Date Treatment Clinician Date Peripheral Peripheral Disease Active [facility] artery artery 9-13 [facility] disease 00:[facility]: [facility] 00 Center PAD PAD Disease Active [facility] (periphera (periphera 8-25 Co llege l artery l artery 00:00: of disease) disease) 00 Medici n (HCCode) (HCCode) e Noncomplia Noncomplia Disease Active U andrew nce nce 2-15 ity of 00:00: [place] [facility] Acidosis Acidosis Disease Active Unive rs 2-04 ity of 00:00: [place] 00 [facility] Chronic Chronic Disease Active 2020-10 Univers anemia anemia 1-06 ity of 00:00: [place] [facility] Gastroesop Gastroesop Disease Active U [...] Uni vers 1-23 ity of 00:00: [place] [facility] Osteopenia Osteopenia Disease Active 2019- U nivers 1-04 ity of 00:00: [place] 00 Medical Branch Abdominal Abdominal Disease Active 2019-10 Uni vers wall wall 0-29 ity of hernia hernia 00:00: [place] [facility] Abdominal Abdominal Disease Active 2019-10 Uni vers wall wall 0-29 ity of hernia hernia 00:00: [place] 00 [facility] Branch Cervical Cervical Disease Active 2020 Unive rs spine spine 5-12 ity of arthritis arthritis 00:00[place] [facility] Chronic Chronic Disease Active 2020 [facility] neck pain neck pain 5-12 ity of 00:00: [place] [facility] Microscopi Microscopi Disease Active 2020 U nivers c c 3-01 ity of hematuria hematuria 00:00: [place] [facility] Lower Lower Disease Active Univers urinary urinary 3-01 ity of tract tract 00:00: [place] symptoms symptoms 00 Medica l Branch Chronic Chronic Disease Active Univers diarrhea diarrhea 2-27 ity of 00:00: [place] [facility] Medicare Medicare Disease Active 2018-10 [...] 00:00: [place] involving involving 00 Medi hiram [place] [facility] coronary coronary artery artery without without [...] Active U nivers ia ia ity of [place] [facility] Chronic Chronic Disease Resolve 2016-07-27 [...] ents Source Name Type Date Date Clinician Lena Propi Active [facility] 2022[facility]0 [facility] adverse 00:[facility]: Medical reaction 00 Center s Metformi Propensi Active Diarrhea 2021-[address] [facility] ty to 9-12 [facility] adverse 00:00: Medical reaction 00 Center s [place] Propensi Active Diarrhea 2021-[address] Flower [...] Medical 00 Center Metformi Propensi Active Diarrhea 2020-1 [facility] ty to 0-28 College adverse 00:00: of reaction 00 Medicin s to e drug Metformi Propensi Active Diarrhea 2020-1 Univ ers n ty to 0-28 ity of adverse 00:00: [place] reaction 00 Medical s Branch METFORMI DRUG Active Diarrhea 2020-1 Univer s N INGREDI 0-28 ity of 00:00: [place] 00 Medical Branch [place] Propensi Active Diarrhea 2020-0 [facility] Flower ty to 8-29 College [place] adverse 00:00: of reaction 00 Medicin s to e drug ORANGE DRUG Active High Diarrhea 2020-0 Univers JUICE INGREDI 8-29 ity of 00:00: [place] 00 Medical Branch [place] Propensi Active Diarrhea 2020-0 Univer s Juice ty to 8-29 ity of adverse 00:00: [place] reaction 00 [facility] ciproflo DA Active U 2019-0 [facility] xacin 6-14 [facility] 00:[facility]: [address] ciproflo DA Active U 2019-0 [facility] xacin 5-03 [facility] 00:00: [address] ciproflo DA Active SV 2017- [facility] xacin 1-09 [place] 00:00: [address] ciproflo DA Active [place] UNKNOWN 2017- [facility] xacin 9- [place] 00:00: [place] 00 [facility] clopidog DA Active [place] diarrhea, 2017- [facility] rel headache 06-12 [place] 00:00: [address] ciproflo DA Active [place] 2017- [facility] xacin 06-12 [place] 00:00: d 00 [facility] clopidog DA Active [place] [facility] rel 9- [place] 00:00: d 00 [facility] Ciproflo Propensi Active Itching [place] xacin ty to 818 College adverse 00:00: of reaction 00 Medicin s to e drug CIPROFLO DRUG Active Med ITCHING Univers XACHEO INGREDI 8-18 ity of 00:00: [place] 00 Medical Branch ciproflo DA Active [place] [facility] xacin 7-10 [facility] 00:00: e 00 [facility] clopidog DA [facility] [place] [facility] Social History Social Habit Start Date Stop Date Quantity Comments Source Exposure to Not sure University of SARS-CoV-2 [place] [facility] (event) Branch History SDOH [facility] Alcohol Std Medical Cente r Drinks History SDOH [facility] Alcohol Binge Medical Alicia ter History SDOH [facility] Alcohol Comment Medical C enter Alcohol intake 2022-06-20 2022-06-[address] [facility] 00:00:00 00:00:00 non-drinker Medical Cente r (finding) History SDOH 2022-06-18 2022-06-[address] [facility] Alcohol Frequency 00:00:00 00:00:00 [facility] Tobacco Comment 2022-06-18 2022-06-18 [facility] 6 [facility]rs [facility]00 [facility] Tobacco use and 2022-06-18 2022-06-[address] [facility] exposure 00:00:00 00:00:00 [facility] Sex Assigned At [address] [facility] 00:00:00 00:00:00 [facility] Smoking Status Start Date Stop Date Source Former smoker 2022-06-18 00:00:00 2022-06-18 00:00:[address] [facility] Never smoked tobacco [facility] Deena ege of Medicine Medications Ordered Filled Start Stop Current Ordering Indication Dosage Frequency Signature Comments Components Source Medication Medication Date Date Medication? Clinician (SIG) Name Name atorvastati Yes 40mg QD Take [address] [facility] (LIPITOR) 06-18 by mouth Luke s 40 MG 21:06: daily. Medical tablet Center furosemide Yes 40mg QD Take 40 [...] dical 46 not know Center dose . atorvastati Yes 40mg QD Take 40 mg CHI [...] dical 46 not know Center dose . atorvastati Yes 40mg QD Take [address] [facility] (LIPITOR) 9-13 by mouth Luke s 40 MG 21:06: daily. Medical tablet 46 Center furosemide Yes 40mg QD Take [address] (LASIX) 40 9-13 by mouth [facility] MG tablet 21:06: daily. Medica l 46 Center gabapentin 2021-0 Yes 300mg Q.5D Take [address] (NEURONTIN) 9-13 mg by [facility] 300 MG 21:06: mouth 2 Medical capsule 46 (two) Center times daily . metoprolol 0 Yes 50mg QD Take [address] succinate 9-13 by mouth [facility] (TOPROL-XL) 21:06: daily. Medi hiram 50 MG 24 hr 46 Center tablet atorvastati 0 Yes 40mg QD Take [address] [facility] (LIPITOR) 9-13 by mouth Luke s 40 MG 21:06: daily. Medical tablet 46 Center furosemide 0 Yes 40mg QD Take [address] (LASIX) 40 9-13 by mouth [facility] MG tablet 21:06: daily. Medica l 46 Center gabapentin 0 Yes 300mg Q.5D Take [address] (NEURONTIN) 9-13 mg by [facility] 300 MG 21:06: mouth 2 Medical capsule 46 (two) Center times daily . metoprolol 0 Yes 50mg QD Take 50 mg C [...] unrelieved 5min after 1st dose . insulin 0 Yes 52U Q.5D Inject 52 [facility] [...] [facility] chloride SA 9-13 mEq by Mari (LAWRENCE ANTONIO 21:06: mouth Medic al -CON-M) 20 46 daily. Center MEQ tablet losartan 0 Yes QD Take by [facility] (COZAAR) 25 9-13 mouth [facility] MG tablet 21:06: daily Does Me dical 46 not know Center dose . nitroglycer Yes .4mg Place 0.4 C HI [...] [facility] chloride SA 9-13 mEq by Mari (LAWRENCE ANTONIO 21:06: mouth Medic al -CON-M) 20 46 daily. Center MEQ tablet losartan Yes QD Take by [facility] (COZAAR) 25 9-13 mouth [facility] MG tablet 21:06: daily Does Me dical 46 not know Center dose . aspirin 81 2021-0 2022- No 81mg QD Take [address] MG EC 06-18 tablet (81 [facility] tablet 00:00: 23:59 mg total) Medic al 00 :00 by mouth Center daily. clopidogreL 2021-0 2022- No 75mg QD Take [address] (PLAVIX) 75 06-18- tablet (75 L ukes mg tablet 00:00: 23:59 mg total) Me dical 00 :00 by mouth Center daily. aspirin 81 2021-0 2023- No 81mg QD Take [address] MG EC 06-18 tablet (81 [facility] tablet 00:00: 23:59 mg total) Medic al 00 :00 by mouth Center daily. clopidogreL 2021-0 2023- No 75mg QD Take [address] (PLAVIX) 75 06-18 tablet (75 L ukes mg tablet 00:00: 23:59 mg total) Me dical 00 :00 by mouth Center daily. aspirin 81 2021-0 2023- No 81mg QD Take [address] MG EC 06-18 tablet (81 [facility] tablet 00:00: 23:59 mg total) Medic al 00 :00 by mouth Center daily. clopidogreL 2021-0 3- No 75mg QD Take [address] (PLAVIX) 75 06-18 tablet (75 L ukes mg tablet 00:00: 23:59 mg total) Me dical 00 :00 by mouth Center daily. aspirin 81 2021-0 2023- No 81mg QD Take [address] MG EC 06-18 tablet (81 [facility] tablet 00:00: 23:59 mg total) Medic al 00 :00 by mouth Center daily. clopidogreL 2021-0 3- No 75mg QD Take [address] (PLAVIX) 75 06-18 tablet (75 L ukes mg tablet 00:00: 23:59 mg total) Me dical 00 :00 by mouth Center daily. aspirin 81 2021-0 2022- No 81mg QD Take [address] MG EC 06-18 tablet (81 [facility] tablet 00:00: 00:00 mg total) Medic al 00 :00 by mouth Center daily. clopidogreL 2021-0 2022- No 75mg QD Take [address] (PLAVIX) 75 06-18 tablet (75 L ukes mg tablet 00:00: 00:00 mg total) Me dical 00 :00 by mouth Center daily. aspirin 81 2021-0 2022- No 81mg QD Take [address] MG EC 06-18 tablet (81 [facility] tablet 00:00: 00:00 mg total) Medic al 00 :00 by mouth Center daily. clopidogreL 2021-0 2022- No 75mg QD Take [address] (PLAVIX) 75 06-18 tablet (75 L ukes mg tablet 00:00: 00:00 mg total) Me dical 00 :00 by mouth Center daily. aspirin 81 2021- No 81mg QD Take [address] MG EC 06-18 tablet (81 [facility] tablet 00:00: 00:00 mg total) Medic al 00 :00 by mouth Center daily. clopidogreL 202- No 75mg QD Take [address] (PLAVIX) 75 06-18 tablet (75 L ukes mg tablet 00:00: 00:00 mg total) Me dical 00 :00 by mouth Center daily. aspirin 81 2021- No 81mg QD Take [address] MG EC 06-18 tablet (81 [facility] tablet 00:00: 00:00 mg total) Medic al 00 :00 by mouth Center daily. clopidogreL 2021- No 75mg QD Take [address] (PLAVIX) 75 06-18 tablet (75 L ukes mg tablet 00:00: 00:00 mg total) Me dical 00 :00 by mouth Center daily. hydrocodone 0 Yes [facility] -acetaminop 8-18 College hen (NORCO) 00:00: of 7.5-325 MG 00 Medicin per tablet e LANTUS Yes [facility] SHELL 8-04 College 100 UNIT/ML 00:00: of SOPN 00 Medicin e metoprolol Yes 50mg Take 50 mg [facility] (TOPROL-XL) 7-25 by mouth Deena ege 50 MG XL 00:00: daily. of tablet 00 Medicin e atorvastati Yes 40mg Take 40 mg [facility] n (LIPITOR) 7-25 by mouth Deena ege 40 MG 00:00: daily. of tablet 00 Medicin e furosemide 0 Yes 40mg Take 40 mg [facility] (LASIX) 40 7-25 by mouth Colle ge MG tablet 00:00: daily. of 00 Medicin e LANTUS Yes [id number] INJECT 52 Un sherrell SOLOSTAR 4-26 UNITS ity of U-100 00:00: UNDER THE [place] INSULIN 100 00 SKIN TWO Medi hiram unit/mL (3 TIMES Branch mL) DAILY. injection nitroglycer Yes [id number] .4mg Place 1 Univers in 0.4 mg 2-02 tablet ity of sublingual 00:00: [place] the [place] tablet 00 tongue Medical every 5 Branch (five) minutes as needed for Chest pain. albuterol 0 Yes [id number] 2{puff} Inhale 2 Univers 90 2-02 Puffs ity of mcg/actuati 00:00: every 6 Alber as on inhaler 00 (six) Medical hours as Branch needed for Wheezing or Shortness of Breath. Insulin Yes [id number] 52U inject 52 U nivers Glargine 2-02 Units ity of (LANTUS 00:00: under the [place] SOLOSTAR 00 skin 2 Medical U-100 (two) Branch INSULIN) times 100 unit/mL daily. (3 mL) injection nitroglycer Yes [id number] .4mg Place 1 Univers in 0.4 mg 2-02 tablet ity of sublingual 00:00: under the [place] tablet 00 tongue Medical every 5 Branch (five) minutes as needed for Chest pain. albuterol Yes [id number] 2{puff} Inhale 2 Univers 90 2-02 Puffs ity of mcg/actuati 00:00: every 6 [place] as on inhaler 00 (six) Medical hours as Branch needed for Wheezing or Shortness of Breath. nitroglycer Yes .4mg Place 0.4 [facility] in 2-02 mg under [place] (NITROSTAT) 00:00: the of 0.4 mg 00 tongue. Medicin sublingual e tablet Insulin 2021- No [id number] 52U inject 52 Univers Glargine 2-02 04-26 Units ity of (LANTUS 00:00: 00:00 [place] SOLOSTAR 00 :00 skin 2 Medical U-100 (two) Branch INSULIN) times 100 unit/mL daily. (3 mL) injection atorvastati 2021-0 Yes [id number] 40mg Take 1 Univers n 40 mg 1-18 tablet by ity of tablet 00:00: mouth [place] 00 daily. Medical Branch atorvastati 2021-0 Yes [id number] 40mg Take 1 Univers n 40 mg 1-18 tablet by ity of tablet 00:00: mouth [place] 00 daily. Medical Branch HYDROcodone Yes Univer s -acetaminop 1-06 ity of hen 7.5-325 00:00: [place] mg per 00 Medical tablet Branch gabapentin 2020-10 Yes [id number] 300mg Take 1 Univers 300 mg 1-16 capsule by ity of capsule 00:00: mouth at [place] 00 bedtime. Medical Branch gabapentin 2020-10 Yes [id number] 300mg Take 1 Univers 300 mg 1-16 capsule by ity of capsule 00:00: mouth at [place] 00 bedtime. Medical Branch gabapentin 2020-10 Yes 300mg Take 300 [facility] (NEURONTIN) 1-16 mg by College 300 MG 00:00: mouth. of capsule 00 Medicin e triamcinolo 2020-10 Yes [id number] Apply to Univers ne 0.5 % 0-29 9107 area(s) 2 ity of ointment 00:00: (two) [place] 00 times Medical daily. Branch triamcinolo 2020-10 Yes [id number] Apply to Univers ne 0.5 % 0-29 9107 area(s) 2 ity of ointment 00:00: (two) [place] 00 times Medical daily. Branch lancets-blo 2020-10 Yes [id number] 1{each} 1 Each 2 Univers od glucose 0-15 (two) ity of strips 30 00:00: times [place] gauge Cmpk 00 daily. DX Medi hiram E11.9 Branch (Brand upon insurance approval) UNIFINE 2020-10 Yes USE Univers PENTIPS 0-15 DIRECTED ity of PLUS 33 00:00: FOR TWICE [place] gauge x 00 A DAY Medical " Ndle INSULIN Branch ADMINISTRA TION. lancets-blo 2020-10 Yes [id number] 1{each} 1 Each 2 Univers od glucose [...] by ity of 3,6,9 #6 17:15: mouth Elisabeth (FISH, FLAX 17 daily. Medica l & BORAGE 1,040 Branch OIL, PRIM,) mg/575mg 400-400-200 EPA/425mg mg Cap DHA multivit-ir 2020-0 Yes 1{tbl} Take 1 Tab Univers on-FA with 9-05 by mouth ity o f Ca&mins 17:15: daily. [place] (THERA-TABS 17 Medical M) 27 mg Branch iron-400 mcg Tab omeg3/epa/d 2020-0 Yes Take by Uni vers mane/fish 9-05 mouth. ity of oil/flax/E 17:15: [place] (THERA 17 Medical TEARS Branch NUTRITION ORAL) CALCIUM-MAG 2020-0 Yes Take by Uni vers NESIUM-ZINC 9-05 mouth. ity of ORAL 17:15: Also with [place] 17 vitamin d Medical Branch docosahexan 0 Yes 1200mg Take 1,200 Univers oic 9-05 mg by ity of acid/epa 17:15: mouth. [place] (FISH OIL 17 360mg Medical ORAL) omega 3 Branch fsh-flx-prm 2020-0 Yes 1{capsu Take 1 U nivers -blkbor-om 9-05 le} capsule by ity of 3,6,9 #6 17:15: mouth [place] (FISH, FLAX 17 daily. Medica l & BORAGE 1,040 Branch OIL, PRIM,) mg/575mg 400-400-200 EPA/425mg mg Cap DHA multivit-ir 2020-0 Yes 1{tbl} Take 1 Tab Univers on-FA with 9-05 by mouth ity o f Ca&mins 17:15: daily. [place] (THERA-TABS 17 Medical M) 27 mg Branch iron-400 mcg Tab omeg3/epa/d 2020-0 Yes Take by Uni vers mane/fish 9-05 mouth. ity of oil/flax/E 17:15: [place] (THERA 17 Medical TEARS Branch NUTRITION ORAL) CALCIUM-MAG 2020-0 Yes Take by Uni vers NESIUM-ZINC 9-05 mouth. ity of ORAL 17:15: Also with [place] 17 vitamin d Medical Branch docosahexan 2021-0 Yes 1200mg Take 1,200 Univers oic 9-05 mg by ity of acid/epa 17:15: mouth. [place] (FISH OIL 17 360mg Medical ORAL) omega 3 Branch bacitracin 0 Yes [id number] Apply to Univers 500 9-05 affected ity of unit/gram 00:00: area(s) 4 [place] as ointment 00 (four) Medical times Branch daily. simethicone 0 Yes [id number] 80mg Take 1 Univers 80 mg 9-05 tablet by ity of chewable 00:00: mouth [place] tablet 00 after Medical meals and Branch at bedtime. bacitracin 0 Yes [id number] Apply to Univers 500 9-05 affected ity of unit/gram 00:00: area(s) 4 [place] as ointment 00 (four) Medical times Branch daily. simethicone 0 Yes [id number] 80mg Take 1 Univers 80 mg 9-05 tablet by ity of chewable 00:00: mouth [place] tablet 00 after Medical meals and Branch at bedtime. zinc Yes [id number] 220mg Take 1 Univer s sulfate 50 8-09 capsule by ity of mg zinc 00:00: mouth [place] (220 mg) 00 daily. Medical capsule Branch thiamine Yes [id number] 100mg Take 1 Un sherrell 100 mg 8-09 tablet by ity of tablet 00:00: mouth [place] 00 daily. Medical Branch zinc 0 Yes [id number] 220mg Take 1 Univer s sulfate 50 8-09 capsule by ity of mg zinc 00:00: mouth [place] (220 mg) 00 daily. Medical capsule Branch thiamine 0 Yes [id number] 100mg Take 1 Un sherrell 100 mg 8-09 tablet by ity of tablet 00:00: mouth [place] 00 daily. Medical Branch vitamin C 0 Yes [id number] 1000mg Take 1 Univers with kwame 8-08 tablet by ity o f hips 1,000 00:00: mouth [place] mg tablet 00 daily. Medical Branch cholecalcif 0 Yes [id number] 2000U Take 2 Univers carmelina, 8-08 tablets by ity of vitamin D3, 00:00: mouth [place] 25 mcg 00 daily. Medical (1,000 Branch unit) tablet vitamin C 0 Yes [id number] 1000mg Take 1 Univers with kwame 8-08 tablet by ity o f hips 1,000 00:00: mouth [place] mg tablet 00 daily. Medical Branch cholecalcif Yes [id number] 2000U Take 2 Univers carmelina, 8-08 tablets by ity of vitamin D3, 00:00: mouth [place] 25 mcg 00 daily. Medical (1,000 Branch unit) tablet blood sugar Yes [id number] USE TO Univers diagnostic 7-23 TEST BLOOD ity of (ONETOUCH 00:00: SUGAR [place] VERIO TEST 00 TWICE Medical STRIPS) DAILY; Branch strip ICD-10 E11.8 blood sugar Yes [id number] USE TO Univers diagnostic 7-23 TEST BLOOD ity of (ONETOUCH 00:00: SUGAR [place] VERIO TEST 00 TWICE Medical STRIPS) DAILY; Branch strip ICD-10 E11.8 metoprolol Yes [id number] 50mg Take 1 U nivers succinate 6-24 tablet by ity o f XL 50 mg 24 00:00: mouth [place] hr tablet 00 daily. Medical Branch metoprolol Yes [id number] 50mg Take 1 U nivers succinate 6-24 tablet by ity o f XL 50 mg 24 00:00: mouth [place] hr tablet 00 daily. Medical Branch LOSARTAN 25 Yes [id number] 25mg TAKE 1 Univers mg tablet 6-21 TABLET BY ity o f 00:00: MOUTH [place] 00 DAILY. Medical Branch LOSARTAN 25 Yes [id number] 25mg TAKE 1 Univers mg tablet 6-21 TABLET BY ity o f 00:00: MOUTH [place] 00 DAILY. Medical Branch fsh-flx-prm Yes 1{capsu Take 1 U nivers -blkbor-om 4-20 le} capsule by ity of 3,6,9 #6 14:58: mouth [place] (FISH, FLAX 36 daily. Medica l & BORAGE 1,040 Branch OIL, PRIM,) mg/575mg 400-400-200 EPA/425mg mg Cap DHA multivit-ir Yes 1{tbl} Take 1 Tab Univers on-FA with 4-20 by mouth ity o f Ca&mins 14:58: daily. [place] (THERA-TABS 36 Medical M) 27 mg Branch iron-400 mcg Tab omeg3/epa/d Yes Take by Uni vers mane/fish 4-20 mouth. ity of oil/flax/E 14:58: [place] (THERA 36 Medical TEARS Branch NUTRITION ORAL) CALCIUM-MAG Yes Take by Uni vers NESIUM-ZINC 4-20 mouth. ity of ORAL 14:58: Also with [place] 36 vitamin d Medical Branch docosahexan Yes 1200mg Take 1,200 Univers oic 4-20 mg by ity of acid/epa 14:58: mouth. [place] (FISH OIL 36 360mg Medical ORAL) omega 3 Branch FUROSEMIDE Yes [id number] TAKE 1 Univers 40 mg 4-14 TABLET BY ity of tablet 00:00: MOUTH [place] 00 EVERY DAY Medical Branch FUROSEMIDE Yes [id number] TAKE 1 Univers 40 mg 4-14 TABLET BY ity of tablet 00:00: MOUTH [place] 00 EVERY DAY Medical Branch FUROSEMIDE Yes Ischemic TAKE 1 U nivers 40 mg 4-14 cardiomyopa TABLET BY it y of tablet 00:00: thy MOUTH [place] 00 EVERY DAY Medical Branch SPIRIVA Yes [id number] INHALE 1 Un sherrell RESPIMAT 3-04 PUFF BY ity of 2.5 00:00: MOUTH [place] mcg/actuati 00 DAILY. Medica l on Mist Branch SPIRIVA Yes [id number] INHALE 1 Un sherrell RESPIMAT 3-04 PUFF BY ity of 2.5 00:00: MOUTH [place] mcg/actuati 00 DAILY. Medica l on [place] Branch SPIRIVA Yes Chronic INHALE 1 Uni vers RESPIMAT 3-04 obstructive PUFF BY i ty of 2.5 00:00: pulmonary MOUTH [place] mcg/actuati 00 disease, DAILY. Me dical on Mist unspecified Branc h COPD type GABAPENTIN Yes Type 2 TAKE 1 Uni vers 100 mg 2-23 diabetes CAPSULE BY ity of capsule 00:00: mellitus MOUTH [place] 00 with EVERY DAY Medical complicatio Branch n, with long-term current use of insulin nitroglycer Yes Coronary .4mg Place 1 Univers in 0.4 mg 2-12 artery tablet ity of sublingual 00:00: disease under the [place] tablet 00 involving tongue Medica l [place] every 5 Branch coronary (five) artery of minutes as [place] needed for heart Chest without pain. angina pectoris blood sugar 0 Yes Type 2 USE TO Un sherrell diagnostic 2-10 diabetes TEST BLOOD ity of (ONETOUCH 00:00: mellitus SUGAR [place] as VERIO TEST 00 with TWICE Medical STRIPS) complicatio DAILY; Bra [facility] strip n, with ICD-10 long-term E11.8 current [...] use injection of insulin Nebulizer & Yes [id number] Use as Univers Compressor 7-15 directed; ity of For Neb 00:00: ICD-10 [place] Allison 00 CODE J44.9 Medical Branch Nebulizer & 0 Yes [id number] Use as Univers Compressor 7-15 directed; ity of For Neb 00:00: ICD-10 [place] Allison 00 CODE J44.9 Medical Branch Nebulizer & Yes Chronic Use as U nivers Compressor 7-15 obstructive directed; ity of For Neb 00:00: pulmonary ICD-10 [place] as [place] 00 disease, CODE J44.9 Medic al unspecified Branch COPD type Insulin Yes Use as Univers [place], 6-26 directed ity of Disposable, 00:00: for twice [place] (BD HERBERTH 00 a day Medical 2ND GEN PEN insulin Branc h NEEDLE) 32 administra gauge x tion. " Ndle albuterol Yes [id number] .63mg Inhale 3 Univers 0.63 mg/3 5-12 mL every 6 ity of mL 00:00: (six) [place] nebulizer 00 hours as Medica l solution needed for Branc h Wheezing or Shortness of Breath. montelukast 2020-0 Yes [id number] 10mg Take 1 Univers 10 mg 5-12 tablet by ity of tablet 00:00: mouth [place] 00 every Medical evening. Branch albuterol Yes [id number] .63mg Inhale 3 Univers 0.63 mg/3 5-12 mL every 6 ity of mL 00:00: (six) [place] nebulizer 00 hours as Medica l solution needed for Branc h Wheezing or Shortness of Breath. montelukast 2019- Yes [id number] 10mg Take 1 Univers 10 mg 5-12 tablet by ity of tablet 00:00: mouth [place] 00 every Medical evening. Branch losartan 25 Yes Ischemic 25mg Take 1 Univers mg tablet 5-12 cardiomyopa tablet by ity of 00:00: thy mouth [place] 00 daily. Medical Branch potassium Yes Ischemic 10meq Take 1 [...] every Medical evening. Branch potassium 2021- No [id number] 10meq Take 1 Univers chloride 10 5-12 02-04 tablet by it y of mEq CR 00:00: 00:00 mouth [place] tablet 00 :00 daily. Medical Branch Lancets 2019- Yes Type 2 Check Univers Misc 2-13 [...] [place] hr tablet 00 daily. Medical Branch Lancets 2018-10 Yes [id number] Check Unive rs Misc 2-13 sugars up ity of 00:00: to 3 times [place] 00 a day. Dx Medical Code Branch E11.9. Brand per insurance. aspirin 325 2018-10 Yes [id number] 325mg Take 1 Univers mg tablet 2-13 tablet by ity o f 00:00: mouth [place] 00 daily. Medical Branch butalbital- 2018-10 Yes [id number] 1{tbl} Take 1 Univers acetaminoph 2-13 tablet by ity of en-caff 00:00: mouth [place] 50-325-40 00 every 6 Medical mg tablet (six) Branch hours as needed (Migraine) . Lancets 2018-10 Yes [id number] Check Unive rs Misc 2-13 sugars up ity of 00:00: to 3 times [place] 00 a day. Dx Medical Code Branch E11.9. Brand per insurance. aspirin 325 2018-10 Yes [id number] 325mg Take 1 Univers mg tablet 2-13 tablet by ity o f 00:00: mouth [place] 00 daily. Medical Branch butalbital- 2018-10 Yes [id number] 1{tbl} Take 1 Univers acetaminoph 2-13 tablet by ity of en-caff 00:00: mouth [place] 50-325-40 00 every 6 Medical mg tablet (six) Branch hours as needed (Migraine) . butalbital- 2018-10 Yes Migraine 1{tbl} Take 1 [...] TIMES Medical DAILY Branch Blood-Gluco 2016-10 Yes [id number] Use BID, Univers se Meter 0-03 DX E11.9 ity of Kit 00:00: ([facility] upon Medical insurance Branch approval) Blood-Gluco 2016-10 Yes [id number] Use BID, Univers se Meter 0-03 DX E11.9 ity of Kit 00:00: ([facility] upon [facility] insurance Branch approval) Blood-Gluco 2016-10 Yes Type 2 Use BID, Univers se Meter 0-03 diabetes DX E11.9 ity of Kit 00:00: mellitus (Brand with upon Medical complicatio insurance [facility], approval) unspecified [employer] insulin use status lancets-blo 2016-10 Yes Type 2 1{each} 1 Each 2 Univers od glucose 0-03 diabetes (two) ity of strips 30 00:00: mellitus times Alber as gauge Cmpk 00 with daily. DX [facility] hiram complicatio E11.9 Branch n, (Brand unspecified upon shelter insurance insulin use approval) status Immunizations Ordered Filled Immunization Date Status Comments [facility] Immunization Name Name Pneumococcal 2018-08-22 Completed University o f Polysaccharide, 00:00:00 [place] Med ical PPSV23 (PNEUMOVAX) Branch Pneumococcal 2018-08-22 Completed University o f Polysaccharide, 00:00:00 [place] Med ical PPSV23 (PNEUMOVAX) Branch Pneumococcal 2018-08-22 Completed [place] o f Polysaccharide, 00:00:00 [place] Med ical PPSV23 (PNEUMOVAX) Branch Vital Signs Vital Name Observation Time Observation Value Comments Source WEIGHT 2022-06-18 10:35:00 92.08 kg HEIGHT 2022-06-18 10:35:00 162.6 cm WEIGHT 2022-06-18 10:35:00 92.08 kg HEIGHT 2022-06-18 10:35:00 162.6 cm WEIGHT 2022-06-18 10:35:00 92.08 kg HEIGHT 2022-06-18 10:35:00 162.6 cm Systolic blood 2022-05-29 15:44:00 127 mm[Hg] [facility] Medicine Diastolic blood 2022-05-29 15:44:00 93 mm[Hg] [facility] Medicine Heart rate 2022-05-29 15:44:00 92 /min [facility] Body height 2022-05-29 15:44:00 162.6 cm [facility] Body weight 2022-05-29 15:44:00 92.171 kg [facility] BMI 2022-05-29 15:44:00 34.88 kg/m2 [facility] Systolic blood 2022-06-18 18:22:00 123 mm[Hg] [facility] Diastolic blood 2022-06-18 18:22:00 53 mm[Hg] [facility] Heart rate 2022-06-18 18:22:00 79 /min [facility] Respiratory rate 2022-06-18 18:22:00 16 /min [facility] Oxygen saturation in 2022-06-18 16:44:00 98 /min [facility] Arterial blood by Medical Ce nter Pulse oximetry Body temperature 2022-06-18 10:35:[address] [facility] Body height 2022-06-18 10:35:00 162.6 cm [facility] Body weight 2022-06-18 10:35:00 92.08 kg [facility] BMI 2022-06-18 10:35:00 34.84 kg/m2 [facility] Procedures Procedure Date / Time Performing Clinician Source Performed POCT-GLUCOSE METER 2022-06-18 15:55:00 Priscila Guillory [facility] ANGIOPLASTY, ARTERY, 2022-06-18 12:16:00 Priscila Guillory [facility] LOWER EXTREMITY [place] CBC W/PLT COUNT & AUTO 2022-06-18 11:51:00 ValentinaTre [facility] DIFFERENTIAL Center PROTHROMBIN TIME/INR 2022-06-18 11:51:00 Valentina, [facility] APTT 2022-06-18 11:51:00 Valentina, [facility] BASIC METABOLIC PANEL 2022-06-18 11:51:00 [facility] TYPE AND SCREEN, 2022-06-18 11:51:00 Valent[facility] AUTOMATED Center CBC W/PLT COUNT & AUTO 2022-06-18 11:51:00 Valentina [facility] DIFFERENTIAL [place] POCT-GLUCOSE METER 2022-06-18 11:18:00 [facility] ECG 12-LEAD 2022-06-18 11:09:38 [facility] CARDIAC CATH REPORT - 2022-06-18 00:00:00 Provider, [facility] SCAN Scanning Center COMP. METABOLIC PANEL 2021-11-07 16:33:00 Suman Underwood [facility] ([id number]) [facility] CBC WITHOUT DIFF 2021-11-07 16:33:00 [facility] AUTHORIZATION FOR 2021-01-19 05:01:00 Doctor Unassigned, No Univ [facility] RELEASE OF PHI Name Medical Branch [id number] 2020-05-27 00:00:00 [facility] [id number] 2020-05-27 00:00:00 [facility] [id number] 2020-05-27 00:00:00 [facility] [id number] 2020-05-27 00:00:00 [facility] [id number] 2020-05-27 00:00:00 [facility] [id number] 2020-05-27 00:00:00 [facility] Plan of Care Planned Activity Planned Date Details Comments Source Future Scheduled 2030-08-09 Screening for University of Test 00:00:00 [facility] Medical (procedure) [code = Branch [id number]] Future Scheduled 2023-06-[address] [facility] Test 00:00:00 Counseling [facility] Medical Cente r Screening (12+) [code = Tobacco Cessation Counseling and Screening (12+)] Future Scheduled 2023-06-[address] [facility] Test 00:00:00 [facility]ing [facility] Medical Cente r Screening (12+) [code = Tobacco Cessation Counseling and Screening (12+)] Future Scheduled 2023-06-[address] [facility] Test 00:00:00 Counseling and Medical Cente r Screening (12+) [code = Tobacco Cessation Counseling and Screening (12+)] Future Scheduled 2023-06-[address] [facility] Test 00:00:00 Counseling and Medical Cente r Screening (12+) [code = Tobacco Cessation Counseling and Screening (12+)] Future Scheduled 2022-10-[address] [facility] Test 00:00:00 SCREENING (12+) Medical Cent er [code = DEPRESSION SCREENING (12+)] Future Scheduled 2022-10-[address] [facility] Test 00:00:00 SCREENING [code = Medical nter FALLS RISK SCREENING] Future Scheduled 2022-06-[address] [facility] Test 00:00:00 (#1) [code = [facility] Center INFLUENZA VACCINE (#1)] Future Scheduled 2022-06-[address] [facility] Test 00:00:00 (#1) [code = Medical Center INFLUENZA VACCINE (#1)] Future Scheduled 2022-06-[address] [facility] Test 00:00:00 (#1) [code = Medical Center INFLUENZA VACCINE (#1)] Future Scheduled 2022-06-[address] [facility] Test 00:00:00 (#1) [code = Medical Center INFLUENZA VACCINE (#1)] Future Scheduled 2022-05-30 COVID-19 Vaccine [facility] Test 10:10:26 (#1) [code = Medicine COVID-19 Vaccine (#1)] Future Scheduled 2022-05-30 TETANUS SHOT [facility] Test 10:10:26 (ADULT) [code = Medicine TETANUS SHOT (ADULT)] Future Scheduled 2022-05-30 BMI FOLLOW UP PLAN [facility] of Test 10:10:26 [code = BMI FOLLOW Medicine UP PLAN] Future Scheduled 2022-05-30 Hepatitis C [facility] Deena ege of Test 10:10:26 screening Medicine (procedure) [code = 116742917] Future Scheduled 2022-05-30 ZOSTER VACCINE (1 [facility] of Test 10:10:26 of 2) [code = Medicine ZOSTER VACCINE (1 of 2)] Future Scheduled 2022-05-30 FALL SCREEN [code = [facility] or [place] of Test 10:10:26 FALL SCREEN] Medicine Future Scheduled 2022-05-30 Screening for [facility] Col lege of Test 10:10:26 osteoporosis Medicine (procedure) [code = 130023965] Future Scheduled 2022-05-30 Pneumococcal 65+ (1 [facility] or [place] of Test 10:10:26 - PCV) [code = Medicine Pneumococcal 65+ (1 - PCV)] Future Scheduled 2022-05-30 MEDICARE IPPE [facility] Col lege of Test 10:10:26 (WELCOME TO Medicine MEDICARE) [code = MEDICARE IPPE (WELCOME TO MEDICARE)] Future Scheduled 2022-05-30 FLU VACCINE > 6 [facility] C ollege of Test 10:10:26 MONTHS [code = FLU Medicine VACCINE > 6 MONTHS] Future Scheduled 2022-05-29 US ARTERIAL LEGS 1 Occurrences [facility] of Test 11:10:51 BILATERAL [code = starting Medicine 33530-5] 05/29/2022 until 05/29/2023 Future Scheduled 2022-01-25 Creatinine University of Test 00:00:00 measurement [place] Medical (procedure) [code = Branch [id number]] Future Scheduled 2022-01-25 Calculated low Universit y of Test 00:00:00 density lipoprotein [facility] dical cholesterol level Branch (procedure) [code = 523160395] Future Scheduled 2021-10-27 DTaP,Tdap,and Td Postponed from Unive rsity of Test 00:00:00 Vaccines (1 - Tdap) 1964 [place] Me dical [code = (Insurance / Branch DTaP,Tdap,and Td Financial) Vaccines (1 - Tdap)] Future Scheduled 2021-10-27 Depression University of Test 00:00:00 screening [place] Medical (procedure) [code = Branch [id number]] Future Scheduled 2021-10-27 Medicare Annual Universi ty of Test 00:00:00 Wellness Visit [facility] (procedure) [code = Branch [id number]] Future Scheduled 2021-10-[address] [facility] [facility] Test 00:00:00 WELLNESS (YEAR 2 or Medical Center FIRST YEAR if no IPPE) [code = MEDICARE ANNUAL WELLNESS (YEAR 2 or FIRST YEAR if no IPPE)] Future Scheduled 2021-10-[address] [facility] Test 00:00:00 WELLNESS (YEAR 2 or Medical Center FIRST YEAR if no IPPE) [code = MEDICARE ANNUAL WELLNESS (YEAR 2 or FIRST YEAR if no IPPE)] Future Scheduled 2021-10-[address] [facility] Test 00:00:00 WELLNESS (YEAR 2 or Medical Center FIRST YEAR if no IPPE) [code = MEDICARE ANNUAL WELLNESS (YEAR 2 or FIRST YEAR if no IPPE)] Future Scheduled 2021-10-[address] [facility] Test 00:00:00 WELLNESS (YEAR 2 or Medical Center FIRST YEAR if no IPPE) [code = MEDICARE ANNUAL WELLNESS (YEAR 2 or FIRST YEAR if no IPPE)] Future Scheduled 2021-10-06 Diabetic foot University of Test 00:00:00 examination [place] [facility] (regime/therapy) Branch [code = [id number]] Future Scheduled 2021-10-[address] [facility] Test 00:00:00 SCREENING (12+) Medical Cent er [code = DEPRESSION SCREENING (12+)] Future Scheduled 2021-10-[address] [facility] Test 00:00:00 SCREENING [code = Medical Ce nter FALLS RISK SCREENING] Future Scheduled 2021-10-[address] [facility] Test 00:00:00 SCREENING (12+) Medical Cent er [code = DEPRESSION SCREENING (12+)] Future Scheduled 2021-10-[address] [facility] Test 00:00:00 SCREENING [code = Medical Ce nter FALLS RISK SCREENING] Future Scheduled 2021-10-[address] [facility] Test 00:00:00 SCREENING (12+) Medical Cent er [code = DEPRESSION SCREENING (12+)] Future Scheduled 2021-10-[address] [facility] Test 00:00:00 SCREENING [code = Medical Ce nter FALLS RISK SCREENING] Future Scheduled 2021-08-03 Zoster Recombinant Postponed from Uni versity of Test 00:00:00 Vaccine (SHINGRIX) 1995 [place] Med ical (1 of 2) [code = (Refused) Branch Zoster Recombinant Vaccine (SHINGRIX) (1 of 2)] Future Scheduled 2021-07-27 Hemoglobin A1c Universit y of Test 00:00:00 measurement [place] Medical (procedure) [code = Branch [id number]] Future Scheduled 2021-06-06 INFLUENZA VACCINE Univer sity of Test 00:00:00 (Season Ended) [place] [facility] [code = INFLUENZA Branch VACCINE (Season Ended)] Future Scheduled 2020-10-01 Microalbumin University of Test 00:00:00 measurement, urine, [place] Me dical quantitative Branch (procedure) [code = 717614665] Future Scheduled 2020-09-17 Examination of Universit y of Test 00:00:00 retina (procedure) [place] Med ical [code = 032478547] Branch Future Scheduled 2019-08-22 P[address]UMOCOCCAL [address]+ [facility] Test 00:00:00 YRS (2 - PCV) [code Medical Center = PNEUMOCOCCAL 65+ YRS (2 - PCV)] Future Scheduled 2019-08-22 PNEUMOCOCCAL [address]+ [facility] Test 00:00:00 YRS (2 - PCV) [code Medical Center = PNEUMOCOCCAL 65+ YRS (2 - PCV)] Future Scheduled 2019-08-22 PNEUMOCOCCAL [address]+ [facility] Test 00:00:00 YRS (2 - PCV) [code Medical Center = PNEUMOCOCCAL 65+ YRS (2 - PCV)] Future Scheduled 2019-08-22 PNEUMOCOCCAL [address]+ [facility] Test 00:00:00 YRS (2 - PCV) [code Medical Center = PNEUMOCOCCAL 65+ YRS (2 - PCV)] Future Scheduled [address] [facility] Test 00:00:00 (1 of 2) [code = Medical [place] ter SHINGLES VACCINES (1 of 2)] Future Scheduled [address] [facility] Test 00:00:00 (1 of 2) [code = Medical [place] [facility] SHINGLES VACCINES (1 of 2)] Future Scheduled [address] [facility] Test 00:00:00 (1 of 2) [code = Medical [place] [facility] SHINGLES VACCINES (1 of 2)] Future Scheduled [address] [facility] Test 00:00:00 (1 of 2) [code = Medical [place] ter SHINGLES VACCINES (1 of 2)] Future Scheduled 1964 DTAP/TDAP/TD [facility] Test 00:00:00 VACCINES (1 - Tdap) Medical Center [code = DTAP/TDAP/TD VACCINES (1 - Tdap)] Future Scheduled 1963 DTAP/TDAP/TD [facility] Test 00:00:00 VACCINES (1 - Tdap) Medical Center [code = DTAP/TDAP/TD VACCINES (1 - Tdap)] Future Scheduled 1963 DTAP/TDAP/TD [facility] Test 00:00:00 VACCINES (1 - Tdap) Medical Center [code = DTAP/TDAP/TD VACCINES (1 - Tdap)] Future Scheduled 1963 DTAP/TDAP/TD [facility] Test 00:00:00 VACCINES (1 - Tdap) Medical Center [code = DTAP/TDAP/TD VACCINES (1 - Tdap)] Future Scheduled [address] [facility] Test 00:00:00 SCREENING [code = Medical Ce nter HEPATITIS C SCREENING] Future Scheduled [address] [facility] Test 00:00:00 SCREENING [code = Medical Ce nter HEPATITIS C SCREENING] Future Scheduled [address] [facility] Test 00:00:00 SCREENING [code = Medical Ce nter HEPATITIS C SCREENING] Future Scheduled [address] [facility] Test 00:00:00 SCREENING [code = Medical Ce nter HEPATITIS C SCREENING] Future Scheduled 1945-01-08 COVID-[address] [facility] Test 00:00:00 (#1) [code = Medical Center COVID-19 VACCINE (#1)] Future Scheduled 1945-01-08 COVID-[address] [facility] Test 00:00:00 (#1) [code = Medical Center COVID-19 VACCINE (#1)] Future Scheduled 1945-01-08 COVID-[address] [facility] Test 00:00:00 (#1) [code = Medical Center COVID-19 VACCINE (#1)] Future Scheduled 1945-01-08 COVID-[address] [facility] Test 00:00:00 (#1) [code = Medical Center COVID-19 VACCINE (#1)] Future Scheduled 1945 DXA SCAN [code = [facility] Test 00:00:00 DXA SCAN] [facility] Center Future Scheduled 1945 DXA SCAN [code = [facility] Test 00:00:00 DXA SCAN] Medical Center Future Scheduled 1945 DXA SCAN [code = [facility] Test 00:00:00 DXA SCAN] [facility] Center Future Scheduled 1945 DXA SCAN [code = [facility] Test 00:00:00 DXA SCAN] Medical Center Encounters Start End Encounter Admission Attending Care Care Encounter Source Date/Time Date/Time Type Type Clinicians Facility Department ID 2022-09-24 Outpatient Quintanilla, STLMLC STLMLC [id number] Common 14:24:02 Shawn [facility] 2022-09-11 Outpatient Quintanilla, STLMLC STLMLC [id number] Common 10:49:04 [facility] 2022-09-06 Outpatient Quintanilla, STLMLC STLMLC [id number] Common 11:05:05 Shawn [facility] 2022-09-05 Outpatient Quintanilla, STLMLC STLMLC [id number] Common 10:58:03 [facility] 2022-08-12 Outpatient Quintanilla, STLMLC STLMLC [id number] Common 08:49:02 [facility] 14058 [facility] 2022-07-19 Outpatient Quintanilla, STLMLC STLMLC [id number] Common 09:59:03 Shawn [facility] 2022-06-13 Outpatient Quintanilla, STLMLC STLMLC [id number] Common 14:20:01 Shawn [facility] 2022-05-30 Outpatient VERONICA GUILLORY, [facility] Surgery [id number] [facility] 14:09:30 PRISCILA 2022-05-30 Outpatient Quintanilla, STLMLC STLMLC [id number] Common 10:41:05 [facility] [address] [facility] 2021-08-06 Emergency [facility] [id number] Univers 18:30:44 ity [facility] [place] [facility] 2021-08-06 Emergency [facility] [id number] Univers 13:25:07 ity [facility] [place] [facility] 2021-08-02 Emergency [facility] [id number] Univers 17:26:32 [facility] 2022-06-18 2022-06-18 Outpatient [facility] [id number] [facility] 00:00:00 23:59:00 Al Medicin e 2022-06-18 2022-06-18 Outpatient VERONICA GUILLORY [facility] Surgery [id number] [facility] 10:00:00 18:37:00 [facility] 2022-06-18 2022-06-18 [facility] [id number] 10:00:00 18:37:[address] [facility] 2022-06-18 2022-06-18 [facility] [id number] 10:00:00 18:37:[address] [facility] 2022-06-18 2022-06-18 [facility] [id number] 11:51:00 15:12:00 [facility] 2022-06-18 2022-06-18 [facility] [id number] 11:51:00 15:12:00 [facility] 2022-05-29 2022-05-29 Office NICK GUILLORY [id number] [facility] 10:33:50 11:17:23 Visit PRISCILA AMBULATOR 350.1.13.21 College Y 0.2.7.2.686 [id number] [facility] 825 e 2022-03-08 2022-03-08 Outpatient Justina [facility] [id number] Univers 11:00:00 11:00:00 DIANE quentin [facility] [place] [facility] 2022-01-28 2022-01-28 Stefani Underwood [facility] [id number] Univers 00:00:00 00:00:00 Wondiful A HEALTH [id number] ity of [place] 4.2.7.2.686 Alber as KHURRAM?BLEA [phone] [facility] 044 [facility] 2021-12-25 2021-12-25 Outpatient Justina [facility] [id number] Univers 11:15:00 11:15:00 DIANE ity of [facility] 2021-11-09 2021-11-09 [facility] [id number] Univers 00:00:00 00:00:00 Management Wondiful A HEALTH 350.1.13.10 ity of [place] 4.2.7.2.686 Alber as KHURRAM?BLEA [id number] [facility] 044 [facility] 2021-11-07 2021-11-07 Bottle Labeler Lab, Ang - Db [facility] 1.2.840.1 [id number] Univers 10:30:00 11:08:15 Visit Suman Underwood HEALTH 350.1.13.1 0 ity of [place] 4.2.7.2.686 Alber as KHURRAM?BLEA [phone] [facility] MOY 353 [facility] 2021-11-07 2021-11-07 Bottle Labeler Lab, Ang - Db [facility] 1.2.840.1 [id number] Univers 10:30:00 10:45:00 Visit Suman Underwood HEALTH 350.1.13.1 0 ity of [place] 4.2.7.2.686 Alber as KHURRAM?BLEA [phone] Sc yesi BUSTOS [address] [facility] OFFICE [facility] 2021-11-07 2021-11-07 Outpatient R KJ [facility] [id number] Univers 10:30:00 10:30:00 WONDIFUL ity o f [facility] 2021-11-07 2021-11-07 Outpatient R KJ [facility] [id number] Univers 10:30:00 10:30:00 WONDIFUL ity o f [facility] 2021-11-07 2021-11-07 Office [facility] [id number] Univers 10:00:00 10:26:57 Visit Wondiful A HEALTH 350.1.13.10 ity of [place] 4.2.7.2.686 Alber as KHURRAM?BLEA [phone] [address] OFFICE [facility] 2021-10-23 2021-10-23 [facility] [id number] Univers 00:00:00 00:00:00 Wondiful A HEALTH 350.1.13.10 ity of [place] 4.2.7.2.686 Alber as KHURRAM?BLEA [id number] [address] OFFICE [facility] 2021-09-03 2021-09-03 Telephone [facility] 1.2.840.114 [id number] Univers 00:00:00 00:00:00 Wondiful A HEALTH 350.1.13.10 ity of [place] 4.2.7.2.686 Alber as KHURRAM?BLEA [id number] [address] 2021-08-28 2021-08-28 [facility] [id number] Univers 10:30:00 10:30:00 WONDIFUL ity o f [facility] 2021-08-28 2021-08-28 Outpatient R KJ [facility] [id number] Univers 10:30:00 10:30:00 WONDIFUL ity o f [facility] 2021-08-21 2021-08-21 [facility] 1.2.840.114 [id number] Univers 00:00:00 00:00:00 Peter ILANA 350.1.13.10 i ty of [place] 4[place]7.2.686 [place] PROFESS[place] [id number] [address] 2021-08-21 2021-08-21 Telephone [facility] 1.2.840.114 [id number] Univers 00:00:00 00:00:00 Wondiful A HEALTH 350.1.13.10 ity of [place] 4.2.7.2.686 Alber as KHURRAM?BLEA [id number] Sc yesi OMY [address] [facility] 2021-08-21 2021-08-21 Telephone [facility] 1.2.840.114 [id number] Univers 00:00:00 00:00:00 Wondiful A HEALTH 350.1.13.10 ity of [place] 4.2.7.2.686 Alber as KHURRAM?BLEA [id number] Sc yesi MOY [address] [facility] 2021-08-16 2021-08-16 Telephone [facility] 1.2.840.114 [id number] Univers 00:00:00 00:00:00 Wondiful A HEALTH 350.1.13.10 ity of [place] 4.2.7.2.686 Alber as KHURRAM?BLEA [id number] Sc yesi MOY [address] MEDICAL OFFICE [facility] 2021-08-11 2021-08-11 Case [facility] [id number] Univers 00:00:00 00:00:00 Management Wondiful A HEALTH 350.1.13.10 ity of [place] 4.2.7.2.686 Alber as KHURRAM?BLEA [id number] Sc yesi MOY [address] MEDICAL OFFICE [facility] 2021-08-02 2021-08-02 [facility] [id number] Univers 11:00:00 23:59:00 Encounter Wondiful A HEALTH 350.1.13.10 ity of [place] 4.2.7.2.686 Alber as KHURRAM?BLEA [id number] Sc yesi MOY [address] [facility] 2021-08-02 2021-08-02 Bottle Labeler Lab, Ang - Db [facility] 1.2.840.1 [id number] Univers 11:49:21 12:32:41 Visit Suman Underwood A HEALTH 350.1.13.1 0 ity of [place] 4.2.7.2.686 Alber as KHURRAM?BLEA [id number] Sc dicalcira MOY [address] [facility] 2021-08-022021-08-02 Outpatient R KJ [facility] [id number] Univers 11:45:00 12:32:41 WONDIFUL ity o f [facility] 2021-08-02 2021-08-02 Outpatient R KJ [facility] [id number] Univers 11:45:00 11:45:00 WONDIFUL ity o f [facility] [facility] 2021-08-02 2021-08-02 Outpatient R KJ [facility] [id number] Univers 11:00:00 11:44:39 WONDIFUL ity o f [facility] 2021-08-02 2021-08-02 Office [facility] 1.2.840.114 [id number] Univers 10:37:01 11:44:39 Visit Wondiful A HEALTH 350.1.13.10 ity of [facility] 4.2.7.2.686 Alber as KHURRAM?BLEA [phone] [address] OFFICE [facility] 2021-08-02 2021-08-02 Telephone Kj, [facility] 1.2.840.114 [id number] Univers 00:00:00 00:00:00 Wondiful A HEALTH 350.1.13.10 ity of [place] 4.2.7.2.686 Alber as KHURRAM?BLEA [phone] [address] OFFICE [facility] 2021-07-30 2021-07-30 Outpatient R LOTTIE, [facility] [id number] Univers 11:00:00 11:00:00 SENDIL ity of [facility] 2021-07-24 2021-07-24 Bottle Labeler Ted, Adc Lab Main [facility] 1.2.8 40.114 [id number] Univers 12:02:05 12:17:05 Visit Marion Vu 350.1.13.10 ity of [place] 4[place].2.[place] Profess[place] [phone] [address] 2021-07-24 2021-07-24 Outpatient R JANINE MENEZES, [facility] [id number] Univers 12:00:00 12:00:00 MARION roldan [facility] 2021-07-24 2021-07-24 Orders Doctor INGRID 1.2.840.114 [id number] Univers 00:00:00 00:00:00 Only Unassigned, ONESIMO 350.1.13.10 ity of [place] [facility] 4.2.7.2.686 Alber as [phone] [facility] [address] [place] 2021-07-22 2021-07-22 Emergency [facility] 1.2.973.330 [id number] Univers 14:26:00 16:01:00 Nilo [place] 350.1.13.10 i ty of [place] 4.2.7.2.686 [place] [phone] [facility] [address] [place] 2021-07-22 2021-07-22 Emergency X [facility] ERT [id number] Univers 14:26:00 16:01:00 [facility] 2021-07-22 2021-07-22 Orders Doctor INGRID 1.2.840.114 [id number] Univers 00:00:00 00:00:00 Only Unassigned, ONESIMO 350.1.13.10 ity of [place] [facility] 4.2.7.2.686 Alber as [phone] [address] 2021-07-19 2021-07-19 [facility] 1.2.840.114 [id number] Univers 00:00:00 00:00:00 Wondiful A Health 350.1.13.10 ity of [place] 4.2.7.2.686 Alber as Khurram?Blea [phone] Sc yesi moy [address] [place] [address] Medical Office Building 2021-07-19 2021-07-19 [facility] 1.2.840.114 [id number] Univers 00:00:00 00:00:00 Wondiful A [place] 350.1.13.10 ity of [place] 4.2.7.2.[place] [phone] Sc yesi holm [facility] Branch Building 2021-06-12 2021-06-12 Outpatient R BRODY PLAZA [facility] [id number] Univers 10:00:00 10:00:[address] [facility] 2021-06-12 2021-06-12 Outpatient R BRODY PLAZA [facility] [id number] Univers 10:00:00 10:00:[address] [facility] 2021-06-12 2021-06-12 Transition Tessa Mohamud 1.2.840.114 [id number] Univers 00:00:00 00:00:00 of Care Sandra Toledo Chavez 350.1.13.10 i ty of [place] 4.2.7.2.686 [facility] maya [phone] [facility] 403 Branch 2021-06-01 2021-06-10 [facility] Huff Last Madride 1.2.840.1 14 [id number] Univers 08:59:00 16:00:00 Encounter Tramaine Monique 350.1.13.10 ity of [place] [facility] 4.2.7.2.68 6 [place] Alcides Humphreysfannyshawn Yoo [phone] [facility] 089 [place] 2021-06-01 2021-06-01 Travel 1.2.840.1 1.2.347.078 [id number] Univers 00:00:00 00:00:00 18970.1.1 350.1.13.10 ity of 3.104.2.7 4.[place]7.3.698 [place] .3.965277 084.8 Medica l .8 [place] 2021-05-30 2021-05-30 Telephone Farideh 1.2.840.0 [id number] Univers 00:00:00 00:00:00 Migdalia Rowley 75983.1.1 ity of 3.104.2.7 [facility]3.440648 Medica l .8 [place] 2021-05-28 2021-05-28 Outpatient R KJ, [facility] [id number] Univers 13:00:00 13:00:00 WONDIFUL ity o f [facility] 2021-05-24 2021-05-24 Office Jyoti 1.2.840.7 [id number] Univers 14:54:06 15:33:35 Visit Praveena 34130.1.1 ity of 3.104.2.7 [place] .3.414892 Medica l .8 [place] 2021-05-24 2021-05-24 [facility] [id number] Univers 15:00:00 15:00:00 PRAVEENA ity of [facility] 2021-05-24 2021-05-24 Outpatient R PATRICIA RODRÍGUEZ [facility] [id number] Univers 11:00:00 11:00:00 PATRICIA RODRÍGUEZ i ty of [facility] 2021-05-24 2021-05-24 Travel 1.2.840.1 1.2.035.842 [id number] Univers 00:00:00 00:00:00 37973.1.1 350.1.13.10 ity of 3.104.2.7 4.[place].3.698 [place] .3.948187 084.8 Medica l .8 [place] 2021-05-22 2021-05-22 Outpatient R [facility] [id number] Univers 15:00:00 15:00:00 PRAVEENA ity of [facility] 2021-05-21 2021-05-21 Telephone Kj, 1.2.840.7 [id number] Univers 00:00:00 00:00:00 Wondiful A 27604.1.1 i ty of 3.104.2.7 [place] .3.990673 Medica l .8 [place] 2021-05-16 2021-05-16 Orders Doctor 1.2.840.7 [id number] Univers 00:00:00 00:00:00 Only Unassigned, 95063.1.1 ity of [place] 3.104.2.7 [place] .3.571431 Medica l .8 Branch 2021-05-15 2021-05-15 Transition Cade, 1.2.840.5 [id number] Univers 00:00:00 00:00:00 of Care Sandra L 89760.1.1 ity of 3.104.2.7 [place] .3.665021 Medica l .8 Branch 2021-05-10 2021-05-13 [facility] Last Huff 1.2.840.1 [id number] Univers 11:59:00 14:00:00 Encounter Tramaine Monique 51475.1.1 ity of 3.104.2.7 [place] .3.234781 Medica l .8 Branch 2021-05-10 2021-05-10 Travel 1.2.840.1 1.2.882.967 [id number] Univers 00:00:00 00:00:00 15446.1.1 350.1.13.10 ity of 3.104.2.7 4.[place].7.3.698 [place] .3.532317 084.8 Medica l .8 Branch 2021-05-10 2021-05-10 Orders Doctor 1.2.840.6 [id number] Univers 00:00:00 00:00:00 Only Unassigned, 70910.1.1 ity of [place] 3.104.2.7 [place] .3.229388 Medica l .8 Branch 2021-04-30 2021-04-30 Orders Doctor 1.2.840.4 [id number] Univers 00:00:00 00:00:00 Only Unassigned, 04470.1.1 ity of [place] 3.104.2.7 [place] .3.159705 Medica l .8 Branch 2021-04-30 2021-04-30 Telephone Lottie, 1.2.840.6 [id number] Univers 00:00:00 00:00:00 Emi [place] 72989.1.1 ity of 3.104.2.7 [place] .3.462215 Medica l .8 Branch 2021-04-27 2021-04-27 Office Kj, 1.2.840.3 [id number] Univers 13:03:32 14:05:28 Visit Suman Rowley 03995.1.1 i ty of 3.104.2.7 [place] .3.157211 Medica l .8 [place] 2021-04-27 2021-04-27 Outpatient R KJ [facility] [id number] Univers 13:00:00 13:00:00 WONDIFUL ity o f [facility] 2021-04-27 2021-04-27 Travel 1.2.840.1 1.2.211.785 [id number] Univers 00:00:00 00:00:00 27056.1.1 350.1.13.10 ity of 3.104.2.7 4.[place].7.3.698 [place] .3.028105 084.8 Medica l .8 [place] 2021-04-03 2021-04-03 Outpatient R LOTTIE [facility] [id number] Univers 13:00:00 13:00:00 SENDIL ity [facility] [place] [facility] 2021-04-03 2021-04-03 Outpatient R LOTTIE, [facility] [id number] Univers 13:00:00 13:00:00 SENDIL ity [facility] 2021-03-28 2021-03-28 Office Lottie, 1.2.840.6 [id number] Univers 11:05:15 11:39:40 Visit Sendil K.H. 95481.1.1 ity of 3.104.2.7 [place] .3.326091 Medica l .8 [place] 2021-03-28 2021-03-28 Outpatient R LOTTIE, [facility] [id number] Univers 11:00:00 11:00:00 SENDIL ity [facility] [place] [facility] 2021-03-28 2021-03-28 Travel 1.2.840.1 1.2.808.756 [id number] Univers 00:00:00 00:00:00 74204.1.1 350.1.13.10 ity of 3.104.2.7 4.[place].7.3.698 [place] .3.422526 084.8 Medica l .8 [place] 2021-03-27 2021-03-27 Refill Kj, 1.2.840.3 [id number] Univers 00:00:00 00:00:00 Wondiful A 76881.1.1 i ty of 3.104.2.7 [place] .3.226319 Medica l .8 [place] 2021-03-26 2021-03-26 Refill Kj, 1.2.840.1 [id number] Univers 00:00:00 00:00:00 Wondiful A 70590.1.1 i ty of 3.104.2.7 [place] 0[address].323868 Medica l .8 Branch 2021-03-09 2021-03-09 Outpatient R LOTTIE [facility] [id number] Univers 11:00:00 11:00:00 SENDIL ity [facility] [place] [facility] 2021-03-09 2021-03-09 Outpatient R LOTTIE [facility] [id number] Univers 11:00:00 11:00:00 SENDIL ity [facility] [place] [facility] 2021-02-27 2021-02-27 Outpatient R KJ [facility] [id number] Univers 16:30:00 16:30:00 WONDIFUL ity o f [facility] 2021-02-15 2021-02-15 Outpatient R LOTTIE [facility] [id number] Univers 11:00:00 11:00:00 SENDIL ity [facility] [place] [facility] 2021-02-15 2021-02-15 Outpatient R LOTTIE [facility] [id number] Univers 11:00:00 11:00:00 SENDIL ity [facility] [place] [facility] 2021-01-25 2021-01-25 Outpatient R PATRICIA RODRÍGUEZ [facility] [id number] Univers 10:30:00 11:33:46 PATRICIA RODRÍGUEZ i ty of [facility] 2021-01-25 2021-01-25 Outpatient R PATRICIA RODRÍGUEZ [facility] [id number] Univers 10:30:00 10:30:00 PATRICIA RODRÍGUEZ i ty of [facility] 2021-01-23 2021-01-23 Outpatient R LOTTIE [facility] [id number] Univers 10:00:00 10:00:00 SENDIL ity [facility] [place] [facility] 2020-12-29 2020-12-29 Outpatient R LOTTIE [facility] [id number] Univers 11:30:00 11:30:00 SENDIL ity [facility] [place] [facility] 2020-12-28 2020-12-28 Outpatient R KJ [facility] [id number] Univers 14:00:00 14:00:00 WONDIFUL ity o f [facility] 2020-12-05 2020-12-05 Outpatient R BRODY PLAZA [facility] [id number] Univers 10:00:00 10:00:00 ity [facility] 2020-11-29 2020-11-29 Outpatient R BOLABRODY [facility] [id number] Univers 00:00:00 00:00:00 ity [facility] 2020-11-22 2020-11-22 Outpatient R BRODY PLAZA [facility] [id number] Univers 00:00:00 00:00:00 ity [facility] 2020-11-17 2020-11-17 Outpatient R LOTTIE [facility] [id number] Univers 14:30:00 14:30:00 [facility]-11-14 2020-11-14 Outpatient Justina PLAZABRODY [facility] [id number] Univers 13:45:00 13:45:00 [facility] 2020-10-27 2020-10-27 Outpatient R KJ [facility] [id number] Univers 11:15:00 11:15:00 WONDIFUL ity o f [facility] 2020-09-22 2020-09-22 Outpatient R RODRIGUEZ, [facility] [id number] Univers 16:00:00 16:00:00 SAHARA [facility] 2020-09-18 2020-09-18 Outpatient R BECKIE BEDOYA [facility] [id number] Univers 13:30:00 13:30:00 [facility] 2020-09-05 2020-09-05 Outpatient R AMY [facility] [id number] Univers 14:30:00 15:53:51 RENEE [facility] 2020-09-05 2020-09-05 Outpatient R AMY [facility] [id number] Univers 14:30:00 14:30:00 RENEE [facility] 2020-08-09 2020-08-09 Outpatient R KJ [facility] [id number] Univers 09:20:21 23:59:00 WONDIFUL ity o f [facility] 2020-08-09 2020-08-09 Outpatient R KJ [facility] [id number] Univers 00:00:00 00:00:00 WONDIFUL ity o f [facility] 2020-08-03 2020-08-03 Outpatient R KJ [facility] [id number] Univers 11:15:00 11:15:00 WONDIFUL ity o f [facility] 2020-07-17 2020-07-17 Outpatient R KJ [facility] [id number] Univers 11:00:00 11:00:00 WONDIFUL ity o f [facility] 2020-07-17 2020-07-17 [facility] 1.2.840.114 [id number] 00:00:00 00:00:00 Wondiful A Health 350.1.13.10 [place] 4.2.7.2.[address] Professio [phone] [address] 2020-07-12 2020-07-12 [facility] 1.2.840.114 [id number] 00:00:00 00:00:00 Wondiful A Health 350.1.13.10 [place] 4.2.7.2.686 Professio [phone] [address] 2020-07-11 2020-07-11 [facility] 1.2.840.114 [id number] 00:00:00 00:00:00 Wondiful A Health 350.1.13.10 [place] 4.2.7.2.686 Professio [phone] [address] 2020-06-28 2020-06-28 Yesica [facility] 1.2.840.114 [id number] 00:00:00 00:00:00 Wondiful A Health 350.1.13.10 [place] 4.2.7.2.686 Professio [phone] [address] 2020-06-27 2020-06-27 Outpatient R KJ [facility] [id number] Univers 15:00:00 15:00:00 WONDIFUL ity o f [facility] 2020-05-11 2020-05-27 Inpatient Rita, HCAPM LABO [id number] 15:00:00 08:02:06 Salim 30 [facility] 2020-05-27 2020-05-20 Inpatient EL Rita HCAWU SURG [id number] [facility] 11:30:00 07:00:00 Salim 60 [facility] 2020-04-28 2020-04-28 Telephone Kj [facility] 1.2.840.114 [id number] 00:00:00 00:00:00 Wondiful A [place] 350.1.13.10 [place] 4.2.7.2.686 Professio [phone] [place] [address] Building 2020-04-28 2020-04-28 Orders Doctor INGRID 1.2.840.114 [id number] 00:00:00 00:00:00 Only Unassigned, ONESIMO 350.1.13.10 [place] [facility] 4.2.7.2.686 [id number] 009 2020-04-21 2020-04-21 Telephone [facility] 1.2.840.114 [id number] 00:00:00 00:00:00 Wondiful A [place] 350.1.13.10 [place] 4.2.7.2.686 Professio [phone] [place] [address] Building 2020-04-20 2020-04-20 Orders Doctor INGRID 1.2.840.114 [id number] 00:00:00 00:00:00 Only Unassigned, ONESIMO 350.1.13.10 [place] [facility] 4.2.7.2.686 [id number] 009 2020-04-14 2020-04-14 Telephone [place], [facility] 1.2.840.114 [id number] 00:00:00 00:00:00 Wondiful A Health 350.1.13.10 [place] 4.2.7.2.686 Professio [phone] [place] [address] Office Building One 2020-03-30 2020-03-30 Telephone Kj, [facility] 1.2.840.114 [id number] 00:00:00 00:00:00 Wondiful A [place] 350.1.13.10 [place] 4.2.7.2.686 Professio [phone] nal [address] [place] [address] 2020-02-15 2020-02-15 Telemedici [facility] 1.2.840.114 [id number] 07:17:35 09:48:52 ne Visit Wonlayla A [place] 350.1.13.10 [place] 4.2.7.2.[phone] 2020-02-15 2020-02-15 [facility] [id number] Univers 09:00:00 09:00:00 WONDIFUL ity o f [facility] 2020-01-27 2020-01-27 Telephone [facility] 1.2.840.114 [id number] 00:00:00 00:00:00 Wondiful A Health 350.1.13.10 [place] 4.2.7.2.686 Professio [phone] [place] [address] Office Building One 2020-01-12 2020-01-12 Emergency [facility] 1.2.578.985 [id number] 15:43:26 16:46:00 Last Ilana 350.1.13.10 [place] 4.2.7.2.686 [place] [id number] [id number] 2020-01-12 2020-01-12 Emergency X [facility] ERT [id number] Univers 15:43:26 16:46:00 LAST [facility] 2020-01-09 2020-01-09 Outpatient R [facility] [id number] Univers 11:00:00 11:00:00 [facility] 2020-01-08 2020-01-08 Outpatient R NUBIA [facility] [id number] Univers 17:00:00 17:00:00 FELY [facility] 2019-12-15 2019-12-15 Outpatient R [facility] [id number] Univers 13:00:00 13:00:00 JOEY [facility] 2019-12-05 2019-12-05 Case [facility] 1.2.840.114 [id number] 00:00:00 00:00:00 Management Wondiful A Health 350.1.13.10 [place] 4.2.7.2.686 [facility] [phone] nal 044 Office Building One 2019-12-02 2019-12-02 Outpatient Justina UNDERWOOD [facility] [id number] Univers 11:30:00 11:30:00 WONDIFUL ity o f [facility] 2019-11-30 2019-11-30 Outpatient Justina UNDERWOOD [facility] [id number] Univers 10:08:46 23:59:00 WONDIFUL ity o f [facility] 2019-11-30 2019-11-30 Outpatient Justina UNDERWOOD [facility] [id number] Univers 00:00:00 00:00:00 WONDIFUL ity o f [facility] 2019-11-26 2019-11-26 Outpatient Justina UNDERWOOD [facility] [id number] Univers 10:30:00 10:23:01 WONDIFUL ity o f [facility] 2019-11-26 2019-11-26 Office [facility] 1.2.840.114 [id number] 09:35:51 10:23:01 Visit [employer] 350.1.13.10 [place] 4.2.7.2.686 [facility] [phone] nal 044 Office [facility] One Results Test Description Test Time Test Comments Results Result Comments Source POC-Glucose meter 2022-06-18 16:06:35 Test Item Value Reference Range Interpretation Comme nts POC-Glucose Meter (test code = 202 mg/dL 70-110 H : TESTED AT [address] 153) [facility], [facility] 30: Care Center Manager/Techni anna ID = [id number] for BATTAD, LESLIE Lab Interpretation (test code = Abnormal 37360-8) [facility] [id number] 16:06:35 Test Item Value Reference Range Interpretation Comments POC-Glucose Meter (test 202 mg/dL 70-110 H : TE STED AT [facility] code = 1538) [address] [place] [address], [facility] 30: Care Center Manager/Techni anna ID = [id number] for BATTAD, LESLIE Lab Interpretation (test Abnormal code = 44684-8) [facility] [id number] 16:06:35 Test Item Value Reference Range Interpretation Comments POC-Glucose Meter (test 202 mg/dL 70-110 H : TE STED AT [facility] code = 1538) [address] [facility], 770 30: Care Center Manager/Techni anna ID = [id number] for BATTAD, LESLIE Lab Interpretation (test Abnormal code = 21654-0) [facility]-Glucose [id number] 16:06:35 Test Item Value Reference Range Interpretation Comments POC-Glucose Meter (test 202 mg/dL 70-110 H : TE STED AT [facility] code = 1538) 67[address] [facility], 770 30: Care Center Manager/Techni anna ID = [id number] for BATTAD, LESLIE Lab Interpretation (test Abnormal code = 56002-6) [facility]-GLUCOSE [id number] 16:06:35 Test Item Value Reference Range Interpretation Comments POC-GLUCOSE METER 202 mg/dL 70-110 H : TESTED A T [facility] 6720 (BEAKER) (test code = DALILA Horn [facility], 1538) [address]: Care Center Manager/Techni anna ID = [id number] for BA TTAD, LESLIE BASIC METABOLIC [id number] 12:33:29 Test Item Value Reference Range Interpretation [...] eGFR (test code = mL/min/1.73 values Stage D escription 1092) sq m Result G1 [place] l or high >=90 G2 Mildly decreased 60-89 G3a Mildl y to moderately 45-5 9 G3b Moderately to s everely 30-44 G4 Severl y decreased 15-29 G5 Kidney failure <15Reported eGF R is based on the CKD-EPI 202 equation that d oes not use a race coefficientEsti mated GFR is not as accur ate as Creatinine Kathe lacey in predicting glom erular filtration rate . Estimated GFR is not appl icable for dialysis patien ts Care Center Manager ID - SILAS [id number] 12:28:05 Test Item Value Reference Range Interpretation Comments PARTIAL THROMBOPLASTIN TIME 29.0 seconds 22.5-36.0 (BEAKER) (test code = 760) PROTHROMBIN [id number] 12:27:26 Test Item Value Reference Range Interpretation Comments PROTIME (BEAKER) 14.5 seconds 11.9-14.2 H (test code = 759) INR (BEAKER) (test 1.20 See_Comment [Automat ed message] code = 370) The system ACSIAN generated this result transmitted ref erence range: <=5.90. The reference range was not used to int erpret this result as normal/abnormal . RECOMMENDED COUMADIN/WARFARIN INR THERAPY RANGESSTANDARD DOSE: 2.0 - 3.0 Includes: PROPHYLAXIS for venous thrombosis, systemic embolization; TREATMENT for venous thrombosis and/or pulmonary embolus.HIGH RISK: Target INR is 2.5-3.5 for patients with mechanical heart valves.CBC W/PLT COUNT & AUTO [id number] 12:20:06 Test Item Value Reference Range Interpretation [...] PERCENT (BEAKER) (test code = 2801) POCT-GLUCOSE [id number] 11:30:29 Test Item Value Reference Range Interpretation Comments POC-GLUCOSE METER 233 mg/dL 70-110 H : TESTED A T [facility] 6720 (BEAKER) (test code = DALILA HAY[place], 1538) [address]: Care Center Manager/Techni anna ID = [id number] for CR IDALIA MORATAYA COMPREHENSIVE METABOLIC [id number] 05:31:58 Test Item Value Reference Range Interpretation Comments GLUCOSE (test code = 165 MG/DL 70-99 H 2216) BUN (test code = 32 MG/DL 8-23 H 2207) CREATININE (test 1.52 MG/DL 0.60-1.30 H code = 2213) eGFR (2020 CKD-EPI) 35 >60 L (test code = 95434) ML/MIN/1.73 CALC BUN/CREAT (test 21 RATIO 6-28 code = 2235) SODIUM (test code = 145 MEQ/L 855-769 2331) POTASSIUM (test code 4.7 MEQ/L 3.5-5.4 = 2227) CHLORIDE (test code 107 MEQ/L 95-107 = 2214) CARBON DIOXIDE (test 25 MEQ/L 19-31 code = 220) CALCIUM (test code = 9.1 MG/DL 8.5-10.5 2208) PROTEIN, TOTAL (test 6.2 G/DL 6.1-8.3 code = 2228) ALBUMIN (test code = 4.0 G/DL 3.5-5.2 2200) CALC GLOBULIN (test 2.2 G/DL 1.9-3.7 code = 224) CALC A/G RATIO (test 1.8 RATIO 1.0-2.6 code = 223) BILIRUBIN, TOTAL 0.3 MG/DL See_Comment [Automated message] (test code = 220) The [employer] which generated this result transmitted ref erence range: <=1.2. T he reference range was not used to int erpret this result as normal/abnormal . ALKALINE PHOSPHATASE 121 U/L 40-142 (test code = 2204) AST (test code = 18 U/L 9-40 2217) ALT (test code = 40 U/L 5-40 UNLESS OTH ERWISE 2218) INDICATED, ALL TESTING PERFORM ED [facility] [place] [address] [place] [id number] LABOR ATORY DIRECTOR: MICHAEL BOLAÑOS M.D. CLIA NUMBER [id number] CAP ACCREDITATION N O. [id number] HEMOGLOBIN [id number] 04:17:53 Test Item Value Reference Range Interpretation Comments HEMOGLOBIN A1c (test 9.7 % 4.2-5.6 H AMERIC AN DIABETES code = 99166) ASSOCIATION IDELINES FOR HGB A1C: PREDIABETES/INC REASED [...] LABORATORY C ONSULTATION. CBC W/AUTO DIFF WITH [id number] 02:35:56 Test Item Value Reference Range Interpretation [...] RBCS 0.00 K/UL 0.00-0.11 (test code = 69815) COMP. METABOLIC PANEL (61814)2021-11-07 22:52:27 Test Item Value Reference Range Interpretation Comments NA (test code = 142 mmol/L 135-145 [id number]) K (test code = 5.5 mmol/L 3.5-5.0 H [id number]) CL (test code = 115 mmol/L 98-108 H 7570467158) CO2 TOTAL (test code = 19 mmol/L 23-31 L 7678112616) AGAP (test code = 2-16 1676683972) BUN (test code = 56 mg/dL 7-23 H 9619825817) GLUCOSE (test code = 53 mg/dL 70-110 L 8365933722) CREATININE (test code = 1.45 mg/dL 0.50-1.04 H 1598055985) TOTAL BILI (test code = 0.6 mg/dL 0.1-1.3 7204752438) CALCIUM (test code = 8.9 mg/dL 8.6-10.6 2566572286) T PROTEIN (test code = 6.3 g/dL 6.3-8.2 3935087750) ALBUMIN (test code = 3.8 g/dL 3.5-5.0 7466037767) ALK PHOS (test code = 74 U/L 34-122 8055540525) ALTv (test code = 40 U/L 5-35 H 1742-6) AST(SGOT) (test code = 32 U/L 13-40 5457457508) eGFR (test code = mL/min/1.73m2 6408680640) JUAN (test code = JUAN) Association of [...] tests). Lab Interpretation Abnormal (test code = 04670-2) [facility] WITHOUT [id number] 20:09:26 Test Item Value Reference Range Interpretation Comments WBC (test code = 6690-2) See_Comment [A utomated message] The system [employer] generated this result transmit osman reference range : 4.30 - 11.10 10*3/?L. The reference range was not used to interpret this result as normal/abnormal . RBC (test code = 789-8) See_Comment L [Au tomated message] The system [employer] generated this result transmit osman reference range [...] See_Comment L [Au tomated message] The system [employer] generated this result transmit osman reference range : 166 - 358 10*3/?L. The reference range was not used to interpret this result as normal/abnormal . MPV (test code = 10.6 fL 9.5-12.9 45298-5) RDW-CV (test code = 11.9 % 12.0-15.5 L 788-0) RDW-SD (test code = 41.6 fL 39.0-49.9 62214-1) NRBC x10^3 (test code = <0.01 See_Comment [Au tomated message] [id number]) The system ACSIAN generated this result transmit osman reference range : 10*3/?L. The reference range was not used to interpret this result as normal/abnormal . NRBC/100 WBC (test code See_Comment [Au tomated message] = [id number]) The system EVIIVO generated this result transmit osman reference range : 0.0 - 10.0 /100 WBC s. The reference r marshal was not used to interpret this result as normal/abnormal . IPF % (test code = [id number]) Lab Interpretation (test Abnormal code = 72337-3) [facility] [id number] 10:13:00 Test Item Value Reference Range Interpretation Comments GLUCOSE BEDSIDE TESTING (test code 205 MG/DL 60-99 H = GLUBED) GLUCOSE BEDSIDE [id number] 08:55:00 Test Item Value Reference Range Interpretation Comments GLUCOSE BEDSIDE TESTING (test code 198 MG/DL 60-99 H = GLUBED) GLUCOSE BEDSIDE [id number] 04:28:00 Test Item Value Reference Range Interpretation Comments GLUCOSE BEDSIDE TESTING (test code 202 MG/DL 60-99 H = GLUBED) GLUCOSE BEDSIDE [id number] 23:36:00 Test Item Value Reference Range Interpretation Comments GLUCOSE BEDSIDE TESTING (test code 194 MG/DL 60-99 H = GLUBED) GLUCOSE BEDSIDE [id number] 19:34:00 Test Item Value Reference Range Interpretation Comments GLUCOSE BEDSIDE TESTING (test code 226 MG/DL 60-99 H = GLUBED) GLUCOSE BEDSIDE [id number] 16:40:00 Test Item Value Reference Range Interpretation Comments GLUCOSE BEDSIDE TESTING (test code 239 MG/DL 60-99 H = GLUBED) GLUCOSE BEDSIDE [id number] 13:41:00 Test Item Value Reference Range Interpretation Comments GLUCOSE BEDSIDE TESTING (test code 220 MG/DL 60-99 H = GLUBED) GLUCOSE BEDSIDE [id number] 11:47:00 Test Item Value Reference Range Interpretation Comments GLUCOSE BEDSIDE TESTING (test code 275 MG/DL 60-99 H = GLUBED) GLUCOSE BEDSIDE [id number] 09:28:00 Test Item Value Reference Range Interpretation Comments GLUCOSE BEDSIDE TESTING (test code 285 MG/DL 60-99 H = GLUBED) GLUCOSE BEDSIDE [id number] 06:09:00 Test Item Value Reference Range Interpretation Comments GLUCOSE BEDSIDE TESTING (test code 237 MG/DL 60-99 H = GLUBED) GLUCOSE BEDSIDE [id number] 20:14:00 Test Item Value Reference Range Interpretation Comments GLUCOSE BEDSIDE TESTING (test code 261 MG/DL 60-99 H = GLUBED) GLUCOSE BEDSIDE [id number] 13:10:00 Test Item Value Reference Range Interpretation Comments GLUCOSE BEDSIDE TESTING (test code 201 MG/DL 60-99 H = GLUBED) GLUCOSE BEDSIDE [id number] 08:39:00 Test Item Value Reference Range Interpretation Comments GLUCOSE BEDSIDE TESTING (test code 252 MG/DL 60-99 H = GLUBED) - XR CHEST [id number] 07:48:00 Patient Name: RUTH ANN MONTEJO Unit No: [id number] EXAMS: CPT CODE: [id number] XR CHEST 1V 78694 EXAM: Chest x-ray, 1 view Dictation location: [...] Caridad ASHBY Technologist: Brody Dillon, RT(R) Transcrpt Date/Tm/Trnsp: 05/29/2020 (0748) t.SDR.BC0 Orig Print D/T: S: 05/29/2020 (0751) [facility] NAME: RUTH ANN MONTEJO [id number] PHYS: [place] [address] : 1945 AGE: 74 SEX: F LOC: Z .SI12 A PHONE #: [phone] EXAM DATE: 05/29/2020 STATUS: ADM IN FAX #: [phone] RADIOLOGY NO:PAGE 1 Signed ReportCBC W/O [id number] 06:18:00 Test Item Value Reference Range Interpretation [...] = 0.00 K/mm3 0.0-0.1 N NRBC#) WBC [id number] 06:18:00 Test Item Value Reference Range Interpretation [...] code = NORMAL NORMAL PLTMORPH) BASIC METABOLIC [id number] 05:11:00 Test Item Value Reference Range Interpretation [...] code = 7.5 MG/DL 8.4-10.2 L CA) [id number] 05:11:00 Test Item Value Reference Range Interpretation Comments MAGNESIUM (test code = MAG) 2.3 MG/DL 1.6-2.3 BASIC METABOLIC [id number] 05:00:00 Test Item Value Reference Range Interpretation [...] CALCIUM (test code = MG/DL 8.7-9.7 CA) [id number] 05:00:00 Test Item Value Reference Range Interpretation Comments MAGNESIUM (test code = MAG) MG/DL 1.6-2.3 BASIC METABOLIC [id number] 04:57:00 Test Item Value Reference Range Interpretation [...] CALCIUM (test code = CA) MG/DL 8.7-9.7 [id number] 04:57:00 Test Item Value Reference Range Interpretation Comments MAGNESIUM (test code = MAG) MG/DL 1.6-2.3 CBC W/O [id number] 04:44:00 Test Item Value Reference Range Interpretation [...] = 0.00 K/mm3 0.0-0.1 N NRBC#) WBC [id number] 04:44:00 Test Item Value Reference Range Interpretation Comments RBC MORPHOLOGY REQUIRED (test code = RBCM) TOTAL CELLS COUNTED (test code = TCC) #CELLS SEGMENTED NEUTROPHILS (test code = % 36.2-73.8 SEG) LYMPHOCYTE (test code = LYMPH) % 12.9-45.1 MONOCYTE (test code = MON) % 0-11 PLATELET ESTIMATE (test code = ADEQUATE PLTEST) PLATELET MORPHOLOGY (test code = NORMAL PLTMORPH) CBC W/AUTO [id number] 04:44:00 Test Item Value Reference Range Interpretation [...] = 0.00 K/mm3 0.0-0.1 N NRBC#) WBC [id number] 04:44:00 Test Item Value Reference Range Interpretation Comments RBC MORPHOLOGY REQUIRED (test code = RBCM) TOTAL CELLS COUNTED (test code = TCC) #CELLS SEGMENTED NEUTROPHILS (test code = % 36.2-73.8 SEG) LYMPHOCYTE (test code = LYMPH) % 12.9-45.1 MONOCYTE (test code = MON) % 0-11 PLATELET ESTIMATE (test code = ADEQUATE PLTEST) PLATELET MORPHOLOGY (test code = NORMAL PLTMORPH) GLUCOSE BEDSIDE [id number] 01:46:00 Test Item Value Reference Range Interpretation Comments GLUCOSE BEDSIDE TESTING (test code 255 MG/DL 60-99 H = GLUBED) GLUCOSE BEDSIDE [id number] 20:02:00 Test Item Value Reference Range Interpretation Comments GLUCOSE BEDSIDE TESTING (test code 240 MG/DL 60-99 H = GLUBED) GLUCOSE BEDSIDE [id number] 17:30:00 Test Item Value Reference Range Interpretation Comments GLUCOSE BEDSIDE TESTING (test code 246 MG/DL 60-99 H = GLUBED) [id number] 15:31:00 Test Item Value Reference Range Interpretation Comments POTASSIUM (test code = K) 4.7 MMOL/L 3.5-5.1 N UNABLE TO DRAW BLOOD, REASON: CBNNOTIFIED PATIENT CARE STAFF: [facility] 05/28/20 AT 1508 BY Migdalia Wallace [id number] 15:22:00 Test Item Value Reference Range Interpretation Comments HEMOGLOBIN (test code = HGB) 8.1 G/DL 11.2-14.9 L UNABLE TO DRAW BLOOD, REASON: CBNNOTIFIED PATIENT CARE STAFF: [facility] 05/28/20 AT 1508 BY Migdalia Wallace AnGLUCOSE BEDSIDE [id number] 12:24:00 Test Item Value Reference Range Interpretation Comments GLUCOSE BEDSIDE TESTING (test code 293 MG/DL 60-99 H = GLUBED) HGB [id number] 08:21:00 Test Item Value Reference Range Interpretation Comments HEMOGLOBIN (test code = HGB) 7.4 G/DL 11.2-14.9 L HEMATOCRIT (test code = HCT) 23.0 % 33.2-43.5 L CBC W/O [id number] 08:17:00 Test Item Value Reference Range Interpretation [...] = 0.00 K/mm3 0.0-0.1 N NRBC#) WBC [id number] 08:17:00 Test Item Value Reference Range Interpretation [...] code = NORMAL NORMAL PLTMORPH) GLUCOSE BEDSIDE [id number] 07:31:00 Test Item Value Reference Range Interpretation Comments GLUCOSE BEDSIDE TESTING (test code 279 MG/DL 60-99 H = GLUBED) GLUCOSE BEDSIDE [id number] 07:07:00 Test Item Value Reference Range Interpretation Comments GLUCOSE BEDSIDE TESTING (test code 222 MG/DL 60-99 H = GLUBED) BASIC METABOLIC [id number] 06:39:00 Test Item Value Reference Range Interpretation [...] code = 7.8 MG/DL 8.4-10.2 L CA) [id number] 06:39:00 Test Item Value Reference Range Interpretation Comments MAGNESIUM (test code = MAG) 1.6 MG/DL 1.6-2.3 N BASIC METABOLIC [id number] 06:33:00 Test Item Value Reference Range Interpretation [...] CALCIUM (test code = CA) MG/DL 8.7-9.7 [id number] 06:33:00 Test Item Value Reference Range Interpretation Comments MAGNESIUM (test code = MAG) MG/DL 1.6-2.3 CBC W/O [id number] 06:18:00 Test Item Value Reference Range Interpretation [...] = 0.00 K/mm3 0.0-0.1 N NRBC#) WBC [id number] 06:18:00 Test Item Value Reference Range Interpretation Comments RBC MORPHOLOGY REQUIRED (test code = RBCM) TOTAL CELLS COUNTED (test code = TCC) #CELLS SEGMENTED NEUTROPHILS (test code = % 36.2-73.8 SEG) LYMPHOCYTE (test code = LYMPH) % 12.9-45.1 MONOCYTE (test code = MON) % 0-11 PLATELET ESTIMATE (test code = ADEQUATE PLTEST) PLATELET MORPHOLOGY (test code = NORMAL PLTMORPH) CBC W/AUTO [id number] 06:18:00 Test Item Value Reference Range Interpretation [...] = 0.00 K/mm3 0.0-0.1 N NRBC#) WBC [id number] 06:18:00 Test Item Value Reference Range Interpretation Comments RBC MORPHOLOGY REQUIRED (test code = RBCM) TOTAL CELLS COUNTED (test code = TCC) #CELLS SEGMENTED NEUTROPHILS (test code = % 36.2-73.8 SEG) LYMPHOCYTE (test code = LYMPH) % 12.9-45.1 MONOCYTE (test code = MON) % 0-11 PLATELET ESTIMATE (test code = ADEQUATE PLTEST) PLATELET MORPHOLOGY (test code = NORMAL PLTMORPH) - XR CHEST [id number] 05:24:00 Patient Name: RUTH ANN MONTEJO Unit No: [id number] EXAMS: CPT CODE: [id number] XR CHEST 1V 49565 EXAMINATION: - XR CHEST 1V LOCATION: H61 [...] by: Adrianna Carrasquillo MD CC: Lisseth Salinas MD;Humberto Carter; Caridad ASHBY Technologist: Brody Dillon, RT(R) Transcrpt Date/Tm/Trnsp: 05/28/2020 (0524) [id number] Orig Print D/T: S: 05/28/2020 (0527) [facility] NAME: RUTH ANN MONTEJO [id number] PHYS: [place] [address] : 1945 AGE: 74 SEX: F LOC: Z.SI12 A PHONE #: [phone] EXAM DATE: 05/28/2020 STATUS: ADM IN FAX #: [phone] RADIOLOGY NO: PAGE 1 Signed ReportBASIC METABOLIC [id number] 01:07:00 Test Item Value Reference Range Interpretation [...] 7.5 MG/DL 8.4-10.2 L CA) BASIC METABOLIC [id number] 00:55:00 Test Item Value Reference Range Interpretation [...] code = MG/DL 8.7-9.7 CA) BASIC METABOLIC [id number] 00:53:00 Test Item Value Reference Range Interpretation [...] CALCIUM (test code = CA) MG/DL 8.7-9.7 [id number] 00:03:00 Test Item Value Reference Range Interpretation Comments HEMOGLOBIN (test code = HGB) 8.2 G/DL 11.2-14.9 L BASIC METABOLIC [id number] 19:38:00 Test Item Value Reference Range Interpretation [...] 7.8 MG/DL 8.4-10.2 L CA) BASIC METABOLIC [id number] 19:37:00 Test Item Value Reference Range Interpretation [...] code = MG/DL 8.7-9.7 CA) BASIC METABOLIC [id number] 19:35:00 Test Item Value Reference Range Interpretation [...] code = CA) MG/DL 8.7-9.7 BASIC METABOLIC [id number] 19:34:00 Test Item Value Reference Range Interpretation [...] CALCIUM (test code = CA) MG/DL 8.7-9.7 [id number] 17:02:00 Test Item Value Reference Range Interpretation Comments ACT-ISTAT (test code = ACTI) 136 SEC 74-137 N ARTERIAL BLOOD [id number] 16:23:00 Test Item Value Reference Range Interpretation [...] = 40 % COHBGFFIO2) - XR CHEST [id number] 16:20:00 Patient Name: RUTH ANN MONTEJO Unit No: [id number] EXAMS: CPT CODE: [id number] XR CHEST 1V 53058 EXAM: - XR CHEST 1V 05/27/2020 3:49 PM Location code:C3 HISTORY: 74 years-old Female with post op surgery TECHNIQUE: Frontal portable view of the chest COMPARISON: Chest x-ray performed on 06/12/2018FINDINGS: Lines and tubes: There is an enteric [...] Snell, (RT) (R) Transcrpt Date/Tm/Trnsp: 05/27/2020 (1620) t.SDR.CP11 Orig Print D/T: S: 05/27/2020 (1623) [facility] NAME: RUTH ANN MNOTEJO [address] PHYS: [place] [address] : 1945 AGE: 74 SEX: F LOC: Z.SI12A PHONE #: [phone] EXAM DATE: 05/27/2020 STATUS: ADM IN FAX #: [phone] RADIOLOGY NO: PAGE1 Signed [id number] 15:07:00 Test Item Value Reference Range Interpretation Comments ACT-ISTAT (test code = ACTI) 257 SEC 74-137 H PROTHROMBIN [id number] 14:54:00 Test Item Value Reference Range Interpretation Comments PROTHROMBIN TIME 14.7 SECONDS 9.4-12.5 H PATIENT (test code = PTP) INTERNATIONAL NORMAL 1.3 The INR is to be RATIO (test code = used only for INR) monitoring oral anticoagulantth erap y. INDICATION INR VALUE ---- ---- ---- -------1. Prophylaxis, de ep venous thrombos is, including high risk surgery. 2.0 - 3.0 2. Prophylaxis, deep venous thrombosis, hip surgery, treatm ent for deep venous thrombosis or pulmonary prevention of systemic emboli sm in patients wit h valvular heart disease, atrial fibrillation, tissue heart va lve, or acute myocar dial infarction. 2.0 - 3.0 3. Yarn Mercerizer Operator al prosthesis hear t valves, recurre nt systemic emboli sm. 3.0 - 4.5 BASIC METABOLIC [id number] 14:49:00 Test Item Value Reference Range Interpretation [...] 7.0 MG/DL 8.4-10.2 L CA) BASIC METABOLIC [id number] 14:47:00 Test Item Value Reference Range Interpretation [...] 7.0 MG/DL 8.4-10.2 L CA) BASIC METABOLIC [id number] 14:46:00 Test Item Value Reference Range Interpretation [...] code = MG/DL 8.7-9.7 CA) BASIC METABOLIC [id number] 14:46:00 Test Item Value Reference Range Interpretation [...] code = MG/DL 8.7-9.7 CA) CBC W/AUTO [id number] 14:31:00 Test Item Value Reference Range Interpretation [...] 0.00 K/mm3 0.0-0.1 N NRBC#) CBC W/AUTO [id number] 13:47:00 Test Item Value Reference Range Interpretation [...] K/mm3 0.0-0.1 N code = NRBC#) DIFFERENTIAL [id number] 13:47:00 Test Item Value Reference Range Interpretation Comments RBC MORPHOLOGY REQUIRED (test code = NORMAL RBCM) PLATELET ESTIMATE (test code = ADEQUATE ADEQUATE PLTEST) PLATELET MORPHOLOGY (test code = NORMAL NORMAL PLTMORPH) PROTHROMBIN [id number] 13:24:00 Test Item Value Reference Range Interpretation [...] myocar dial infarction. 2.0 - 3.0 3. Yarn Mercerizer Operator al prosthesis hear t valves, recurr ent systemic emboli sm. 3.0 - 4.5 UNKNOWN INTERFERENCE. PLEASE RECOLLECT IF RESULT IS NEEDED.COMPREHENSIVE METABOLIC [id number] 12:24:00 Test Item Value Reference Range Interpretation [...] N (test code = ALKP) COMPREHENSIVE METABOLIC [id number] 12:22:00 Test Item Value Reference Range Interpretation [...] N (test code = ALKP) COMPREHENSIVE METABOLIC [id number] 12:20:00 Test Item Value Reference Range Interpretation [...] code = UNITS/L 38-126 ALKP) COMPREHENSIVE METABOLIC [id number] 12:19:00 Test Item Value Reference Range Interpretation [...] code = UNITS/L 38-126 ALKP) CBC W/AUTO [id number] 12:19:00 Test Item Value Reference Range Interpretation [...] K/mm3 0.0-0.1 N code = NRBC#) DIFFERENTIAL [id number] 12:19:00 Test Item Value Reference Range Interpretation Comments RBC MORPHOLOGY REQUIRED (test code = RBCM) PLATELET ESTIMATE (test code = PLTEST) ADEQUATE PLATELET MORPHOLOGY (test code = NORMAL PLTMORPH) CBC W/AUTO [id number] 12:19:00 Test Item Value Reference Range Interpretation [...] K/mm3 0.0-0.1 N code = NRBC#) DIFFERENTIAL [id number] 12:19:00 Test Item Value Reference Range Interpretation Comments RBC MORPHOLOGY REQUIRED (test code = RBCM) PLATELET ESTIMATE (test code = PLTEST) ADEQUATE PLATELET MORPHOLOGY (test code = NORMAL PLTMORPH) BASIC METABOLIC [id number] 07:56:00 Test Item Value Reference Range Interpretation [...] 0-189 mg/dL VERY HIGH.........>/ = 190 mg/dL [id number] 07:56:00 Test Item Value Reference Range Interpretation Comments MAGNESIUM (test code = MAG) 1.8 MG/DL 1.6-2.3 N BASIC METABOLIC [id number] 07:54:00 Test Item Value Reference Range Interpretation [...] LDL (test MG/DL 0-99 code = LDL) [id number] 07:54:00 Test Item Value Reference Range Interpretation Comments MAGNESIUM (test code = MAG) 1.8 MG/DL 1.6-2.3 N PROTHROMBIN [id number] 07:49:00 Test Item Value Reference Range Interpretation Comments PROTHROMBIN TIME 12.0 SECONDS 9.4-12.5 N PATIENT (test code = PTP) INTERNATIONAL NORMAL 1.1 The INR is to be RATIO (test code = used only for INR) monitoring oral anticoagulantth erap y. INDICATION INR VALUE ---- ---- ---- -------1. Prophylaxis, de ep venous thrombos is, including high risk surgery. 2.0 - 3.0 2. Prophylaxis, deep venous thrombosis, hip surgery, treatm ent for deep venous thrombosis or pulmonary prevention of systemic emboli sm in patients wit h valvular heart disease, atrial fibrillation, tissue heart va lve, or acute myocar dial infarction. 2.0 - 3.0 3. Yarn Mercerizer Operator al prosthesis hear t valves, recurre nt systemic emboli sm. 3.0 - 4.5 PTT [id number] 07:49:00 Test Item Value Reference Range Interpretation Comments PTT ACTIVATED (test code = APTT) 30.8 SECONDS 25.1-36.5 N BASIC METABOLIC [id number] 07:44:00 Test Item Value Reference Range Interpretation [...] LDL (test code = LDL) MG/DL 0-99 [id number] 07:44:00 Test Item Value Reference Range Interpretation Comments MAGNESIUM (test code = MAG) MG/DL 1.6-2.3 BASIC METABOLIC [id number] 07:42:00 Test Item Value Reference Range Interpretation [...] LDL (test code = LDL) MG/DL 0-99 [id number] 07:42:00 Test Item Value Reference Range Interpretation Comments MAGNESIUM (test code = MAG) MG/DL 1.6-2.3 BASIC METABOLIC [id number] 07:41:00 Test Item Value Reference Range Interpretation [...] LDL (test code = LDL) MG/DL 0-99 [id number] 07:41:00 Test Item Value Reference Range Interpretation Comments MAGNESIUM (test code = MAG) MG/DL 1.6-2.3 CBC W/AUTO [id number] 07:39:00 Test Item Value Reference Range Interpretation [...] 0.0-0.1 N NRBC#) COVID 19 Asymptomatic IH [id number] 06:05:00 Test Item Value Reference Range Interpretation [...] amount of virus (antigen) in the sample." [id number] 13:38:00 Test Item Value Reference Range Interpretation Comments ACT-ISTAT (test code = ACTI) 241 SEC 74-137 H [id number] 13:38:00 Test Item Value Reference Range Interpretation Comments ACT-ISTAT (test code = ACTI) 224 SEC 74-137 H PROTHROMBIN [id number] 10:02:00 Test Item Value Reference Range Interpretation [...] myocar dial infarction. 2.0 - 3.0 3. Yarn Mercerizer Operator al prosthesis hear t valves, recurre nt systemic emboli sm. 3.0 - 4.5 PTT [id number] 10:02:00 Test Item Value Reference Range Interpretation Comments PTT ACTIVATED (test code = APTT) 25.1 SECONDS 22.0-33.0 N BASIC METABOLIC [id number] 09:48:00 Test Item Value Reference Range Interpretation [...] LIPOPROTEIN LDL (test 68 MG/DL 0-99 N OPTI MAL.........<100 code = LDL) mg/dLNEAR OPTIMAL/ABOVE OPTIMAL........ .100-12 9 mg/dL BORDERL INE HIGH.........13 0-159 mg/dL HIGH.........16 0-189 mg/dL VERY HIGH.........>/ = 190 mg/dL [id number] 09:48:00 Test Item Value Reference Range Interpretation Comments MAGNESIUM (test code = MAG) 1.8 MG/DL 1.6-2.3 N CBC W/AUTO [id number] 09:23:00 Test Item Value Reference Range Interpretation [...] code = 0.00 K/mm3 0.0-0.1 N NRBC#) [id number] 12:09:00 Test Item Value Reference Range Interpretation [...] VERY HIGH.........>/ = 190 mg/dL BASIC METABOLIC [id number] 07:52:00 Test Item Value Reference Range Interpretation [...] code = 9.4 MG/DL 8.4-10.2 N CA) [id number] 07:52:00 Test Item Value Reference Range Interpretation [...] (test MG/DL 0-99 code = LDL) PROTHROMBIN [id number] 07:46:00 Test Item Value Reference Range Interpretation [...] myocar dial infarction. 2.0 - 3.0 3. Yarn Mercerizer Operator al prosthesis hear t valves, recurre nt systemic emboli sm. 3.0 - 4.5 Comments to Switchboard Wirer: WILL BRING TO THE LABPTT [id number] 07:46:00 Test Item Value Reference Range Interpretation Comments PTT ACTIVATED (test code = APTT) 25.1 SECONDS 22.0-33.0 N Comments to Switchboard Wirer: WILL BRING TO THE LABCBC W/AUTO [id number] 07:27:00 Test Item Value Reference Range Interpretation [...]
--- NOTE | 2022-10-10 17:45 | RAD REPORT ---
EXAM DESCRIPTION: RAD - Chest Single View - 10/10/2022 5:37 pm CLINICAL HISTORY: Cough Chest pain. COMPARISON: Chest Single View dated 08/31/2022; Chest Single View dated 08/28/2022; Chest Pa And Lat (2 Views) dated 05/07/2022; Chest Single View dated 12/27/2021 FINDINGS: Portable technique limits examination quality. Moderate bilateral pulmonary opacities are present likely representing bilateral pneumonia, appears m oderately worse relative to 08/31/2022. The heart is mildly enlarged in size. Sternotomy wires presen t.
[2022-10-10] MEDS ORDERED: CEFTRIAXONE 1000 MG/VIAL ONE (17:52)
[2022-10-10] MEDS ORDERED: NA CHLORIDE 0.9% 250 ML ONE ×2 (17:53→20:37)
[2022-10-10] MEDS ORDERED: AZITHROMYCIN 500 MG INJ IVPB ONE (17:53)
[2022-10-10 18:00] LABS: Absolute Lymphocytes (CBC) 0.6 K/uL (0.7-4.9); Hematocrit 28.7 % (36.0-45.0); Lymphocytes % 7.6 % (15.3-44.8); MCV 92.5 fL (80-100); MPV 8.8 fL (7.6-11.3)
[2022-10-10 18:04] LABS: Protime INR 1.15
--- NOTE | 2022-10-10 18:10 | EDPHYS ---
Physician Documentation [facility] Name: Alyson Ibarra Age: 77 yrs Sex: Female : 1945 Arrival Date: 10/10/2022 Time: 17:05 Bed 26 Private MD: ED Physician Chidi Melara HPI: 10/10 17:08 This 77 yrs old Female presents to ER via Unassigned with complaints of Cough, ms3 chills, shortness of breath. 17:08 77-year-old female presents via [facility] for chills, shortness of breath, cough ms3 that began yesterday. Patient states she had pneumonia in August. EMS notes patient to have a normal sinus rhythm in the 90s. EMS noted patient's blood glucose level to be 184.. Historical: - Allergies: 17:13 Cipro; em6 - Home Meds: 17:13 aspirin 81 mg Oral chew 1 tab once daily [Active]; atorvastatin 40 mg Oral tab 1 tab em6 once daily [Active]; Albuterol Inhl [Active]; clopidogrel 75 mg Oral tab 1 tab once daily [Active]; diphenoxylate-atropine 2.5-0.025 mg Oral tab 1 tabs 2 times per day [Active]; furosemide 40 mg Oral tab 1.5 tabs once daily [Active]; gabapentin 100 mg Oral cap 3 caps twice daily [Active]; Lantus Sub-Q [Active]; levocetirizine 5 mg Oral tab 1 tab once daily [Active]; losartan 25 mg Oral tab 1 tab once daily [Active]; metoprolol succinate 50 mg Oral Tb24 1 tab once daily [Active]; - PMHx: 17:13 CAD; CHF; COPD; Diabetes - IDDM; Hyperlipidemia; Hypertension; Myocardial infarction; em6 neuropathy; - PSHx: 17:13 Heart Stents; em6 - Immunization history:: Adult Immunizations unknown. - Social history:: Smoking status: unknown. ROS: 17:08 Constitutional: Positive for chills. ms3 17:08 Respiratory: Positive for cough, shortness of breath. 18:23 Cardiovascular: Negative for chest pain, and palpitations. Skin: Negative for injury, ms3 rash, and discoloration. 18:23 All other systems are negative. Exam: 17:08 Constitutional: This is a well developed, well nourished patient who is awake, alert, ms3 and in no acute distress. Head/Face: Normocephalic, atraumatic. Neck: Trachea midline, no cervical lymphadenopathy. Supple, full range of motion without nuchal rigidity, or vertebral point tenderness. No Meningismus. Chest/axilla: Normal chest wall appearance and motion. Nontender with no deformity. Cardiovascular: Regular rate and rhythm with a normal S1 and S2. No gallops, murmurs, or rubs. Normal PMI, no JVD. No pulse deficits. Respiratory: Lungs have equal breath sounds bilaterally, clear to auscultation and percussion. No rales, rhonchi or wheezes noted. No increased work of breathing, no retractions or nasal flaring. Abdomen/GI: Soft, non-tender, with normal bowel sounds. No distension or tympany. No guarding or rebound. No evidence of tenderness throughout. Skin: Warm, dry with normal turgor. Normal color with no rashes, no lesions, and no evidence of cellulitis. 17:38 ECG was reviewed by the Attending Physician. ms3 Vital Signs: 17:10 BP 146 / 72; Pulse 98; Resp 22; Temp 100.8; Pulse Ox 95% on R/A; Weight 88.45 kg; em6 Height 5 ft. 5 in. (165.10 cm); Pain 5/10; 17:51 BP 170 / 59; Pulse 94; Resp 20; Pulse Ox 95% on 1 lpm NC; mb9 19:06 BP 170 / 59; Pulse 88; Resp 20; Pulse Ox 99% on 1 lpm NC; mb9 21:54 BP 98 / 88; Pulse 89; Resp 16; Pulse Ox 97% on 3 lpm NC; em6 22:22 BP 104 / 48; Pulse 86; Resp 16; Pulse Ox 97% on R/A; em6 17:10 Body Mass Index 32.45 (88.45 kg, 165.10 cm) em6 MDM: 17:05 Patient medically screened. ms3 17:41 ED course: CXR interpretation by myself. RLL PNA.. ms3 18:21 Differential diagnosis: Anemia pneumonia, pulmonary edema. Antibiotic administration: ms3 Rocephin and Zithromax given. Data reviewed: vital signs, nurses notes, lab test result(s), radiologic studies, and as a result, I will admit patient. Counseling: I had a detailed discussion with the patient and/or guardian regarding: the historical points, exam findings, and any diagnostic results supporting the discharge/admit diagnosis, lab results, radiology results, the need for further work-up and treatment in the hospital. ED course: Contributing chronic health diseases coronary artery disease, congestive heart failure, COPD, diabetes. Discussed admission with patient and she understands and agrees with plan. All questions were answered. Discussed case with Maria Luisa Hernandez, nurse petitioner, and he accepts patient on behalf of Dr. Kumar.. 18:52 ED course: Patient meets severe sepsis criteria at this time. A. Bilateral PNA B. HR ms3 >90, RR >20 C. LA >2. Patient initial LA drawn and repeat ordered. Discussed necessity of repeat LA with Davy Hernandez NP. Blood cultures performed prior to abx- Rocephin and Azithromycin.. 10/10 17:06 Order name: Blood Culture Adult (2) ms3 10/10 17:06 Order name: CBC with Diff; Complete Time: 18:21 ms3 10/10 17:06 Order name: CMP; Complete Time: 18:21 ms3 10/10 17:06 Order name: Lactate w/ 2H reflex if indic.; Complete Time: 18:52 ms3 10/10 17:06 Order name: Protime (+inr); Complete Time: 18:21 ms3 10/10 17:06 Order name: Ptt, Activated; Complete Time: 18:21 ms3 10/10 17:06 Order name: CXR XRAY; Complete Time: 17:52 ms3 10/10 17:06 Order name: COVID-19/FLU A+B/RSV; Complete Time: 18:40 ms3 10/10 17:58 Order name: Glucose, Ancillary Testing; Complete Time: 18:00 EDMS 10/10 18:02 Order name: Troponin High Sensitivity; Complete Time: 18:21 EDMS 10/10 18:02 Order name: NT PRO-BNP; Complete Time: 18:21 EDMS 10/10 22:01 Order name: Lactate Sepsis 2 HR Follow-up; Complete Time: 22:27 EDMS 10/10 17:06 Order name: EKG; Complete Time: 17:06 ms3 10/10 17:06 Order name: Accucheck; Complete Time: 17:50 ms3 10/10 17:06 Order name: Cardiac monitoring; Complete Time: 17:14 ms3 10/10 17:06 Order name: EKG - Nurse/Tech; Complete Time: 17:44 ms3 10/10 17:06 Order name: IV Saline Lock - Large Bore; Complete Time: 17:50 ms3 10/10 17:06 Order name: Labs collected and sent; Complete Time: 17:50 ms3 10/10 17:06 Order name: O2 Per Protocol; Complete Time: 17:14 ms3 10/10 17:06 Order name: O2 Sat Monitoring; Complete Time: 17:14 ms3 10/10 17:06 Order name: Vital Signs; Complete Time: 17:50 ms3 10/10 18:43 Order name: Chest Wo Con CT; Complete Time: 19:35 la1 EC:38 Rate is 96 beats/min. Rhythm is regular. QRS [place] is Normal. OR interval is normal. ms3 Clinical impression: NSR w/ Non-specific ST/T Changes. Interpreted by me. Reviewed by me. Administered Medications: 18:24 Drug: Tylenol 1000 mg Route: PO; mb9 19:07 Follow up: Response: No adverse reaction mb9 19:00 Drug: AZITHromycin 500 mg Route: IVPB; Infused Over: 1 hrs; Site: right forearm; mb9 19:05 Drug: Rocephin (cefTRIAXone) 1 grams Route: IV; Rate: calculated rate; Site: right mb9 forearm; 20:44 Drug: vancoMYCIN 1 grams Route: IVPB; Infused Over: 2 hrs; Site: right forearm; mb9 Disposition: 18:54 Critical Care:. ms3 Disposition Summary: 10/10/22 18:09 Hospitalization Ordered Hospitalization Status: Inpatient Admission ms3 Provider: Mario Kumar ms3 Location: Telemetry/[facility] (Inpatient) ms3 Condition: Stable ms3 Problem: new ms3 Symptoms: are unchanged ms3 Bed/Room Type: Standard ms3 Room Assignment: 427(10/10/22 21:25) cg Diagnosis - Unspecified bacterial pneumonia ms3 - Shortness of breath ms3 - Essential (primary) hypertension ms3 Forms: - Medication Reconciliation Form ms3 - SBAR form ms3 Critical care time excluding procedures: 18:54 Critical care time: Bedside Care: 30 minutes, Consultation: 5 minutes. Total time: 35 ms3 minutes Signatures: Dispatcher [employer] EDMS Davy Hernandez, PAPER WRAPPING MACHINE OPERATOR-C PAPER WRAPPING MACHINE OPERATOR-Cla1 Romana Montero, RN RN cg Chidi Melara DO DO ms3 An Asencio, RN RN em6 Po, Inessa Helton, RN RN mb9 Corrections: (The following items were deleted from the chart) 18:02 17:54 PROBNP+C.LAB.BRZ ordered. EDMS EDMS 18:02 17:54 Troponin High Sensitivity+C.LAB.BRZ ordered. EDMS EDMS 21:25 18:09 ms3 cg
--- NOTE | 2022-10-10 18:10 | ER ---
Nurse's Notes [facility] Name: Alyson Ibarra Age: 77 yrs Sex: Female : 1945 Arrival Date: 10/10/2022 Time: 17:05 Bed 26 Private MD: Diagnosis: Unspecified bacterial pneumonia;Shortness of breath;Essential (primary) hypertension Presentation: 10/10 17:10 Chief complaint: EMS states: "patient called us because she was feeling shortness of em6 breath and has been coughing and feels weak and chills. she was here ion August and was diagnosed with pneumonia. vital signs stable.". Coronavirus screen:. Ebola Screen: Patient negative for fever greater than or equal to 101.5 degrees Fahrenheit, and additional compatible Ebola Virus Disease symptoms. Initial Sepsis Screen: Does the patient meet any 2 criteria? Temp <36.0*C (96.8*F)) or > 38.3*C (100.9*F). Systolic BP < 90 mmHg. Yes Does the patient have a suspected source of infection? No. Patient's initial sepsis screen is negative. Risk Assessment: Do you want to hurt yourself or someone else? Patient reports no desire to harm self or others. Onset of symptoms was October 09, 2021. 17:10 Acuity: LETY 3 em6 17:10 Method Of Arrival: EMS: [facility] em6 Historical: - Allergies: 17:13 Cipro; em6 - Home Meds: 17:13 aspirin 81 mg Oral chew 1 tab once daily [Active]; atorvastatin 40 mg Oral tab 1 tab em6 once daily [Active]; Albuterol Inhl [Active]; clopidogrel 75 mg Oral tab 1 tab once daily [Active]; diphenoxylate-atropine 2.5-0.025 mg Oral tab 1 tabs 2 times per day [Active]; furosemide 40 mg Oral tab 1.5 tabs once daily [Active]; gabapentin 100 mg Oral cap 3 caps twice daily [Active]; Lantus Sub-Q [Active]; levocetirizine 5 mg Oral tab 1 tab once daily [Active]; losartan 25 mg Oral tab 1 tab once daily [Active]; metoprolol succinate 50 mg Oral Tb24 1 tab once daily [Active]; - PMHx: 17:13 CAD; CHF; COPD; Diabetes - IDDM; Hyperlipidemia; Hypertension; Myocardial infarction; em6 neuropathy; - PSHx: 17:13 Heart Stents; em6 - Immunization history:: Adult Immunizations unknown. - Social history:: Smoking status: unknown. Screenin:09 [facility] ED Fall Risk Assessment (Adult) History of falling in the last 3 months, em6 including since admission No falls in past 3 months (0 pts) Confusion or Disorientation No (0 pts) Intoxicated or Sedated No (0 pts) Impaired Gait No (0 pts) Mobility Assist Device Used No (0 pt) Altered Elimination No (0 pt) Score/Fall Risk Level 0 - 2 = Low Risk Oriented to surroundings, Maintained a safe environment, Educated pt \\T\\ family on fall prevention, incl call for assistance when getting out of bed, Assessed \\T\\ reinforced patient's understanding of fall precautions, Provided non-skid footwear, Hourly rounding (assess needs \\T\\ fall precautionary measures) done, Used ambulatory aids as needed (educated on \\T\\ assisted with), Used gait belt as appropriate. Abuse screen: Denies threats or abuse. Nutritional screening: No deficits noted. Tuberculosis screening: No symptoms or risk factors identified. Assessment: 17:08 General: Appears in no apparent distress. Behavior is cooperative. Pain: Complains of em6 pain in chest Pain does not radiate. Pain currently is 5 out of 10 on a pain scale. Quality of pain is described as pressure. Neuro: Level of Consciousness is awake, alert, obeys commands, Oriented to person, place, time, situation, Reports dizziness, weakness. Cardiovascular: Patient's skin is warm and dry. Respiratory: Reports shortness of breath Airway is patent Respiratory effort is even, unlabored, Respiratory pattern is regular, symmetrical. GI: Abdomen is non-distended, Bowel sounds present X 4 quads. Abd is soft and non tender X 4 quads. : No signs and/or symptoms were reported regarding the genitourinary system. EENT: No signs and/or symptoms were reported regarding the EENT system. Derm: No signs and/or symptoms reported regarding the dermatologic system. Musculoskeletal: Circulation, motion, and sensation intact. Range of motion: intact in all extremities. 17:47 Reassessment: first set of blood cultures sent. mb9 18:11 General: Appears uncomfortable, Behavior is anxious. Pain: Denies pain. Neuro: Level of mb9 Consciousness is awake, alert, obeys commands, Oriented to person, place, time, situation, Reports headache in entire parietal area, frontal area. Cardiovascular: Heart tones S1 S2 present Rhythm is regular. Respiratory: Reports shortness of breath at rest Airway is patent Respiratory effort is even, unlabored, Respiratory pattern is regular, symmetrical, Breath sounds are clear bilaterally. GI: Abdomen is round non-distended. : No signs and/or symptoms were reported regarding the genitourinary system. EENT: No signs and/or symptoms were reported regarding the EENT system. Derm: Skin is healthy with good turgor, is fragile, is thin, Skin is dry, Skin is normal. Musculoskeletal: Range of motion: intact in all extremities. 18:55 Reassessment: Second set of blood cultures completed by inside lab. mb9 19:06 Reassessment: pt taken to CT via stretcher. mb9 19:27 Reassessment: Daughter at bedside. Airway patent, respirations are clear and unlabored. mb9 Pt denies SOB. Skin is warm, intact, and dry. Rhythm is regular. 20:30 Reassessment: Patient appears in no apparent distress at this time. No changes from em6 previously documented assessment. Patient and/or family updated on plan of care and expected duration. Pain level reassessed. Patient is alert, oriented x 3, equal unlabored respirations, skin warm/dry/pink. 21:20 Reassessment: Patient appears in no apparent distress at this time. No changes from em6 previously documented assessment. Patient and/or family updated on plan of care and expected duration. Pain level reassessed. Patient is alert, oriented x 3, equal unlabored respirations, skin warm/dry/pink. 22:20 Reassessment: Patient appears in no apparent distress at this time. No changes from em6 previously documented assessment. Patient and/or family updated on plan of care and expected duration. Pain level reassessed. Patient is alert, oriented x 3, equal unlabored respirations, skin warm/dry/pink. Vital Signs: 17:10 BP 146 / 72; Pulse 98; Resp 22; Temp 100.8; Pulse Ox 95% on R/A; Weight 88.45 kg; em6 Height 5 ft. 5 in. (165.10 cm); Pain 5/10; 17:51 BP 170 / 59; Pulse 94; Resp 20; Pulse Ox 95% on 1 lpm NC; mb9 19:06 BP 170 / 59; Pulse 88; Resp 20; Pulse Ox 99% on 1 lpm NC; mb9 21:54 BP 98 / 88; Pulse 89; Resp 16; Pulse Ox 97% on 3 lpm NC; em6 22:22 BP 104 / 48; Pulse 86; Resp 16; Pulse Ox 97% on R/A; em6 17:10 Body Mass Index 32.45 (88.45 kg, 165.10 cm) em6 ED Course: 17:05 Patient arrived in ED. em6 17:05 Chidi Melara DO is Attending Physician. ms3 17:13 Triage completed. em6 17:13 Arm band placed on. em6 17:14 Bed in low position. Call light in reach. Side rails up X 1. Pulse ox on. NIBP on. Warm em6 blanket given. 17:39 CXR XRAY In Process Unspecified. EDMS 17:40 EKG done, by ED staff, reviewed by Chidi Melara DO. mb9 17:44 Inessa Fontenot, RN is Primary Nurse. mb9 17:44 COVID-19/FLU A+B/RSV Sent. mb9 17:45 Inserted saline lock: 22 gauge in right forearm, using aseptic technique. ,using mb9 aseptic technique. done by Cindi Alegria RN Blood collected. 17:50 Protime (+inr) Sent. mb9 17:50 Ptt, Activated Sent. mb9 17:50 CMP Sent. mb9 17:50 CBC with Diff Sent. mb9 18:08 Mario Kumar MD is Hospitalizing Provider. ms3 19:[address] In Process Unspecified. EDMS 19:28 No provider procedures requiring assistance completed. mb9 22:24 Patient admitted, IV remains in place. em6 Administered Medications: 18:24 Drug: Tylenol 1000 mg Route: PO; mb9 19:07 Follow up: Response: No adverse reaction mb9 19:00 Drug: AZITHromycin 500 mg Route: IVPB; Infused Over: 1 hrs; Site: right forearm; mb9 19:05 Drug: Rocephin (cefTRIAXone) 1 grams Route: IV; Rate: calculated rate; Site: right mb9 forearm; 20:44 Drug: vancoMYCIN 1 grams Route: IVPB; Infused Over: 2 hrs; Site: right forearm; mb9 Medication: 19:28 VIS not applicable for this client. mb9 Outcome: 18:09 Decision to Hospitalize by Provider. ms3 22:23 Admitted to Tele accompanied by tech, via wheelchair, room 427. em6 22:23 Condition: stable 22:23 Instructed on the need for admit, Demonstrated understanding of instructions. 22:42 Patient left the ED. mb9 Signatures: Dispatcher [employer] EDMS Chidi Melara DO DO ms3 An Asencio, RN RN 6 Inessa Fontenot, RN RN mb9 Corrections: (The following items were deleted from the chart) 17:51 17:51 Inserted saline lock: 22 gauge in right forearm, using aseptic technique. ,using mb9 aseptic technique. done by Cindi Alegria RN Blood collected. mb9
[2022-10-10 18:15] LABS: Albumin 3.6 g/dL (3.4-5.0); Bilirubin Total 0.7 mg/dL (0.2-1.0); Potassium 4.4 mmol/L (3.5-5.1)
[2022-10-10] MEDS ORDERED: ACETAMINOPHEN 500 MG TAB ONE (18:24)
[2022-10-10 18:40] LABS: SARS-COV-2 RT PCR NEGATIVE (NEGATIVE)
--- NOTE | 2022-10-10 19:34 | RAD REPORT ---
EXAM DESCRIPTION: CT - Thorax Wo Con CLINICAL HISTORY: Chest pain Pneumonia, unresolved COMPARISON: Chest For Pe Angio dated 08/28/2022; Chest Single View dated 10/10/2022 FINDINGS: Moderate sized alveolar opacity is seen in the posterior segment right upper lobe most com patible with pneumonia. Mild similar infiltrate is present in the left lung base. Small right pleural effusion is seen with some fluid loculation in the fissure. Small to moderate left pleural effusion is present. Heart size is mildly prominent. No axillary, mediastinal or hilar adenopathy. No concerning bony finding. No gross upper abdominal finding. All CT scans are performed using dose optimization technique as appropriate and may include automated exposure control or mA/KV adjustment according to patient size. IMPRESSION: Moderate alveolar opacity in the posterior right upper lobe and similar infiltrate in th e left lung base favored to represent pneumonia. Small to moderate bilateral pleural effusions.
--- NOTE | 2022-10-10 20:20 | P.HP ---
Certification for Inpatient Patient admitted to: Inpatient With expected LOS: >2 Midnights Patient will require the following post-hospital care: None Practitioner: I am a practitioner with admitting privileges, knowledge of patient current condition, hospital course, and medical plan of care. Services: Services provided to patient in accordance with Admission requirements found in Title 42 Section 412.3 of the Code of Federal Regulations <Davy Hernandez - Last Filed: 10/10/22 20:10> Patient History Date of Service: 10/10/22 Reason for admission: Severe sepsis, pneumonia History of Present Illness: 77-year-old female with history of chronic systolic congestive heart failure, COPD, insulin-dependent diabetes, CAD, hyperlipidemia, hypertension with hospitalization in late August for bilateral pneumonia presents emergency department with fever, cough, shortness of breath. She reports that she began to feel short of breath yesterday and started running fever today. She is evaluated in the emergency department she met SIRS criteria with tachycardia, tachypnea, fever. Source of infection confirmed on chest x-ray revealing bilateral pneumonia, initial lactic acid 2.2 meets criteria for severe sepsis currently. CT chest without contrast was performed given recent bout with bilateral pneumoniarecurrent pneumonia which demonstrated moderate alveolar opacity in the posterior right upper lobe and similar infiltrate in the left lung base favored to represent pneumonia. Small to moderate bilateral pleural effusions. Patient was given antibiotics in the ED including Rocephin, Zithromax, vancomycin. Will admit for further evaluation and management of severe sepsis secondary to healthcare associated pneumonia. - Past Medical/Surgical History Diabetic: Yes -: Hypertension -: CHF -: IDDM -: neuropathy -: hyperlipidemia -: CAD -: DC -: COPD -: cardiac catheterization -: Coronary artery bypass grafting -: Bilateral knee surgery Psychosocial/ Personal History: Patient lives at home with family - Family History Mother -: Diabetes Father -: Diabetes Notes: neuropathy - Social History Smoking Status: Former smoker Alcohol use: No CD- Drugs: No Caffeine use: No Place of Residence: Home <Davy Hernandez - Last Filed: 10/10/22 20:10> Date of Service: 10/11/22 <Mario Kumar - Last Filed: 10/11/22 18:55> Allergies ciprofloxacin [From Cipro] Allergy (Intermediate, Verified 08/28/22 14:56) Itching Home Medications: RX: Insulin Glargine Human [Lantus*] 52 units SQ BID 05/09/18 RX: Losartan Potassium 25 mg PO DAILY 12/27/21 RX: Albuterol Inhaler [Ventolin Inhaler*] 2 puff IH Q6H PRN 08/28/22 RX: Clopidogrel Bisulfate [Plavix*] 75 mg PO DAILY 08/28/22 RX: Furosemide [Lasix*] 40 mg PO DAILY 08/28/22 RX: Hydrocodone Bit/Acetaminophen [Hydrocodon-Acetaminoph 7.5-325] 1 each PO BID 08/28/22 RX: Metoprolol Succinate [Toprol Xl*] 50 mg PO DAILY 08/28/22 RX: Albuterol Neb [Proventil 0.083% Neb Soln] 2.5 mg NEB [id number] PRN #60 amp 09/03/22 RX: Aspirin Chewable [Aspirin Chewable*] 81 mg PO DAILY #30 tab.chew 09/03/22 RX: Ipratropium Neb [Atrovent*] 0.5 mg NEB [id number] #60 amp 09/03/22 RX: Atorvastatin Calcium [Lipitor] 40 mg PO BEDTIME 10/10/22 Review of Systems 10-point ROS is otherwise unremarkable General: Fever, Chills Respiratory: Cough, Shortness of Breath <Davy Hernandez - Last Filed: 10/10/22 20:10> Physical Examination - Physical Exam General: Alert, In no apparent distress, Oriented x3 HEENT: Atraumatic, PERRLA, Mucous membr. moist/pink, EOMI, Sclerae nonicteric Neck: Supple, 2+ carotid pulse no bruit, No LAD, Without JVD or thyroid abnormality Respiratory: Diminished, Crackles/rales Cardiovascular: Regular rate/rhythm, Normal S1 S2 Capillary refill: <2 Seconds Gastrointestinal: Normal bowel sounds, No tenderness Musculoskeletal: No tenderness Integumentary: No rashes Neurological: Normal speech, Normal strength at 5/5 x4 extr, Normal tone, Normal affect - Studies Laboratory Data (last 24 hrs) 10/10/22 17:47: PT 12.6 H, INR 1.15, APTT 33.4 10/10/22 17:47: Sodium 140, Potassium 4.4, BUN 22 H, Creatinine 1.30 H, Glucose 181 H, Total Bilirubin 0.7, AST 51 H, ALT 49, Alkaline Phosphatase 139 H 10/10/22 17:47: WBC 7.50, Hgb 9.8 L, Hct 28.7 L, Plt Count 106 L <Davy Hernandez - Last Filed: 10/10/22 20:10> Assessment and Plan - Plan Assessment: Severe sepsis secondary to bilateral Healthcare associated pneumonia Acute on chronic systolic congestive heart failure Diabetes mellitus type 2insulin-dependent History of CAD Hypertension Hyperlipidemia COPD Plan: Severe sepsis secondary to bilateral Healthcare associated pneumonia: SIRS criteria present with tachycardia, tachypnea, fever, source infection identified on chest x-ray with bilateral pneumonia. Lactate greater than 2 meets criteria for severe sepsis. Pt with hospitalization with BRITTNY pneumonia in late August 2022. Continue broad spectrum abx, blood cultures obtained, sputum culture ordered. Pulmonology consulted. Acute on chronic systolic congestive heart failure: Continue IV lasix for now, she takes lasix 60mg daily, noted to have BRITTNY pleural effusions on CT. Diabetes mellitus type 2insulin-dependent: ACHS accucheck, A1c in AM. SSI, takes lantus 52u daily at home, started reduced dose long acting insulin for tomorrow. History of CAD: Continue home meds monitor on tele. Hypertension: Hold oral HTN agents in the setting of severe sepsis. Hyperlipidemia: Continue home meds. COPD: PRN Nebs, no active exacerbation. DVT PPX: Lovenox Code status: Full Discharge Plan: Home Plan to discharge in: 72 Hours - Advance Directives Does patient have a Living Will: No Does patient have a Durable POA for Healthcare: No - Code Status/Comfort Care Code Status Assessed: Yes (Full code) Critical Care: No Time Spent Managing Pts Care (In Minutes): 70 <Davy Hernandez - Last Filed: 10/10/22 20:10> Physician Review: Patient Assessed, Agree with Above Assessment and Plan <Mario Kumar - Last Filed: 10/11/22 18:55>
[2022-10-10] MEDS ORDERED: VANCOMYCIN 1 GM/VIAL ONE (20:37)
[2022-10-10] MEDS ORDERED: ONDANSETRON 4 MG/2 ML VIAL IV PRN (22:12)
[2022-10-10] MEDS ORDERED: ALBUTEROL 2.5 MG/3 ML NEB SOL NEB PRN (22:12)
[2022-10-10] MEDS: CEFEPIME 1 GM in NA CHLORIDE 0.9% 100 ML IV SCH (22:12)
[2022-10-10] MEDS ORDERED: IPRATROPIUM BROM 0.5MG/2.5ML NEB PRN (22:12)
[2022-10-10] MEDS: INSULIN -REGULAR HUMAN 50 UNIT/0.5 ML ML SQ SCH (22:12)
[2022-10-10] MEDS ORDERED: VANCOMYCIN 1 GM in NA CHLORIDE 0.9% 250 ML IVPB SCH (22:12)
[2022-10-10] MEDS ORDERED: VANCOMYCIN 1.25 GM in NA CHLORIDE 0.9% 250 ML IVPB ONE (23:00)
[2022-10-11] MEDS ORDERED: VANCOMYCIN 1 GM/VIAL ONE (00:13)
[2022-10-11] MEDS ORDERED: NA CHLORIDE 0.9% 250 ML ONE (00:13)
[2022-10-11] MEDS ORDERED: VANCOMYCIN 500 MG/VIAL ONE (00:14)
[2022-10-11 01:32] VITALS: BMI 32.4
[2022-10-11 03:36] LABS: Absolute Lymphocytes (CBC) 0.8 K/uL (0.7-4.9); Hematocrit 26.1 % (36.0-45.0); Lymphocytes % 9.5 % (15.3-44.8); MCV 92.7 fL (80-100); MPV 8.9 fL (7.6-11.3); RBC Red Blood Cell Count 2.82 M/uL (3.86-4.86)
[2022-10-11 03:49] LABS: Albumin 2.8 g/dL (3.4-5.0); Bilirubin Total 0.6 mg/dL (0.2-1.0); Potassium 4.3 mmol/L (3.5-5.1)
[2022-10-11 04:54] LABS: Blood Morphology Comment NOT SEEN (NOT SEEN); Platelet Estimate DECR
[2022-10-11] MEDS: INSULIN -REGULAR HUMAN 50 UNIT/0.5 ML ML SQ SCH ×4 (07:30→21:00)
[2022-10-11] MEDS: CEFEPIME 1 GM in NA CHLORIDE 0.9% 100 ML IV SCH ×2 (08:21→21:27)
[2022-10-11] MEDS: FUROSEMIDE 40 MG/4 ML VIAL IV SCH (08:21)
[2022-10-11] MEDS: CLOPIDOGREL 75 MG TABLET PO SCH (08:22)
[2022-10-11] MEDS: ASPIRIN EC 81 MG TAB PO SCH (08:22)
[2022-10-11] MEDS: ENOXAPARIN 40 MG/0.4 ML SQ SCH (08:22)
[2022-10-11] MEDS: INSULIN GLARGINE 100 UNIT/ML SQ SCH (08:22)
--- NOTE | 2022-10-11 09:25 | P.CNS ---
Date of Consult: 10/11/22 Reason for Consult: Shortness of breath Chief Complaint: Shortness of breath History of Present Illness: Patient is 77 years of age admitted with acute onset of shortness of breath she has a history of congestive heart failure a former heavy smoker quit a while ago admitted with lower extremity edema congestive heart failure possibly underlying pneumonia denies any fever chills cough or phlegm Allergies ciprofloxacin [From Cipro] Allergy (Intermediate, Verified 08/28/22 14:56) Itching Home Medications: Insulin Glargine Human [Lantus*] 52 units SQ BID 05/09/18 Losartan Potassium 25 mg PO DAILY 12/27/21 Albuterol Inhaler [Ventolin Inhaler*] 2 puff IH Q6H PRN 08/28/22 Clopidogrel Bisulfate [Plavix*] 75 mg PO DAILY 08/28/22 Furosemide [Lasix*] 40 mg PO DAILY 08/28/22 Hydrocodone Bit/Acetaminophen [Hydrocodon-Acetaminoph 7.5-325] 1 each PO BID 08/28/22 Metoprolol Succinate [Toprol Xl*] 50 mg PO DAILY 08/28/22 Albuterol Neb [Proventil 0.083% Neb Soln] 2.5 mg NEB [id number] PRN #60 amp 09/03 Aspirin Chewable [Aspirin Chewable*] 81 mg PO DAILY #30 tab.chew 09/03/22 Ipratropium Neb [Atrovent*] 0.5 mg NEB [id number] #60 amp 09/03/22 Atorvastatin Calcium [Lipitor] 40 mg PO BEDTIME 10/10/22 - Past Medical/Surgical History Diabetic: Yes -: Hypertension -: CHF -: IDDM -: neuropathy -: hyperlipidemia -: CAD -: CT -: COPD -: cardiac catheterization -: Coronary artery bypass grafting -: Bilateral knee surgery Psychosocial/ Personal History: Patient lives at home with family - Family History Mother Medical History: Diabetes Father Medical History: Diabetes Notes: neuropathy - Social History Smoking Status: Unknown if ever smoked Alcohol use: No CD- Drugs: No Caffeine use: No Place of Residence: Home Review of Systems 10-point ROS is otherwise unremarkable General: Weakness Respiratory: Shortness of Breath Physical Examination Temp Pulse Resp BP Pulse Ox 98.1 F 94 H 16 113/48 L 94 10/11/22 08:00 10/11/22 08:00 10/11/22 08:00 10/11/22 08:00 10/11/22 08:00 General: Alert, Oriented x3, Mild distress Respiratory: Crackles/rales (Crackles on the left side) Cardiovascular: Regular rate/rhythm, Normal S1 S2, Edema Laboratory Data (last 24 hrs) 10/10/22 17:47: PT 12.6 H, INR 1.15, APTT 33.4 10/10/22 17:47: Sodium 140, Potassium 4.4, BUN 22 H, Creatinine 1.30 H, Glucose 181 H, Total Bilirubin 0.7, AST 51 H, ALT 49, Alkaline Phosphatase 139 H 10/10/22 17:47: WBC 7.50, Hgb 9.8 L, Hct 28.7 L, Plt Count 106 L - Problems (1) Congestive heart failure Current Visit: Yes Status: Acute Plan: Patient is 77 years of age admitted with the acute on chronic dyspnea she has congestive heart failure lateral pleural effusion possibly right lower lobe pneumonia patient has chronic renal failure normal white count mildly anemic echocardiogram shows depressed ejection fraction continue with diuresis DC vancomycin patient's white count is normal check serum procalcitonin level if normal will change to Rocephin patient does not have any risk factors for resistant organism Home medication list reviewed patient is on losartan Lasix and metoprolol Qualifiers: Heart failure type: systolic
--- NOTE | 2022-10-11 12:04 | RAD REPORT ---
EXAM DESCRIPTION: RAD - Chest Single View - 10/11/2022 11:46 am CLINICAL HISTORY: Congestive heart failure possibly pneumonia COMPARISON: Chest Single View dated 10/10/2022; Chest Single View dated 08/31/2022; Chest Single View dated 08/28/2022; Chest Pa And Lat (2 Views) dated 05/07/2022; Thorax Wo Con dated 10/10/2022 FINDINGS: Lines: None. Lungs: Similar interstitial airspace disease bilaterally. Pleural: Small bilateral effusions. Fluid trapped in the right minor fissure. Cardiac: The heart size is within normal limits. Mediastinum: Within normal limits. Bones: No acute fractures. Sternotomy. Other: None IMPRESSION: Unchanged aeration of the lung with multifocal opacities that may represent edema and/or pneumonia.
--- NOTE | 2022-10-11 19:00 | P.PN ---
Subjective Date of Service: 10/11/22 Chief Complaint: Shortness of breath No acute events since admission. She reports persistent shortness of breath and dry cough. She denies any obvious inciting or alleviating factors. She denies any chest pain or palpitations. Review of Systems 10-point ROS is otherwise unremarkable Respiratory: Cough, Dry, Shortness of Breath Physical Examination - Vital Signs Temperature: 99.1 F Blood Pressure: 119/70 Pulse: 67 Respirations: 16 Pulse Ox (%): 99 - Physical Exam General: Alert, In no apparent distress, Oriented x3 HEENT: Atraumatic, Mucous membr. moist/pink, EOMI, Sclerae nonicteric Neck: JVD not distended Respiratory: Diminished, Crackles/rales, Rhonchi/gurgles Cardiovascular: No edema, Regular rate/rhythm, Normal S1 S2, No gallops, No rubs, No murmurs Gastrointestinal: Normal bowel sounds, Soft and benign, Non-distended, No tenderness, No rebound, No guarding Musculoskeletal: No clubbing Integumentary: No rashes Neurological: Normal speech, Cranial nerves 3-12 intact, Normal affect Assessment And Plan - Plan # Severe Sepsis likely secondary to Bilateral Pneumonia (concern for HCAP) # Thrombocytopenia due to above She met sepsis criteria based on temperature > 100.9 F, HR > 90 bpm and RR > 20 breaths/min, and the suspected source is pneumonia. Severe sepsis is suspected due to concern for tissue hypoperfusion/organ dysfunction based on a platelet count <100,000 and a lactic acid > 2 mmol/L. - Chest x-ray (10/10) = "Moderate bilateral pulmonary opacities are present likely representing bilateral pneumonia, appears moderately worse relative to 08/31/2022. The heart is mildly enlarged in size. Sternotomy wires present" - CT chest (10/10) = "Moderate alveolar opacity in the posterior right upper lobe and similar infiltrate in the left lung base favored to represent pneumonia. Small to moderate bilateral pleural effusions." - Sepsis order set was initiated - Lactate = 2.2 -> 1.5 - Procalcitonin = 0.83 - Sputum culture = pending - Blood cultures drawn before antibiotics were given - Broad spectrum antibiotics started: Vancomycin + Cefepime - In regards to fluids: - 30 mL/kg of IV fluids was not administered given SBP > 90, MAP > 65, and hypervolemia from acute CHF # Acute on Chronic Decompensated Systolic Congestive Heart Failure with Reduced Ejection Fraction (LVEF 40%) - Transthoracic echocardiogram (August 2022) = "1. moderate global hypokinesis 2. mild mitral regurgitation, tricuspid regurgitation 3. ejection fraction 40%" - NT-Pro BNP = 3,412 - Diuresis with IV furosemide - Daily weights - Strict I/O - Cardiac diet, 1.5 L fluid restriction, 2 g Na restriction # Chronic Obstructive Pulmonary Disease - Does not appear to be in acute COPD exacerbation - Consulted Pulmonary Medicine - recommendations appreciated - Consulted Respiratory Therapy - Supplemental oxygen to maintain SpO2 > 92% - Encouraged incentive spirometry # Hyperglycemia in Type II Diabetes Mellitus # Diabetic Neuropathy - Hgb A1c = 6.5 % - Continue insulin glargine + correction scale insulin # Coronary Artery Disease s/p PCI and CABG # Hypertension # Hyperlipidemia # Obesity - BMI 32.4 kg/m2 - Stable - Continue home aspirin, atorvastatin, clopidogrel - PRN hydralazine - Hold beta-blockers, ALTA-I/ARB given concern for # Chronic Kidney Disease Stage III - Creatinine near baseline - IV diuretics as mentioned above - Monitor creatinine and urine output - Renally dose medications Mario Kumar M.D.
[2022-10-11] MEDS: ATORVASTATIN 40 MG TAB PO SCH (21:30)
[2022-10-11] MEDS: BENZONATATE 100 MG CAP PO PRN (21:39)
[2022-10-12 03:33] LABS: Absolute Lymphocytes (CBC) 0.6 K/uL (0.7-4.9); Hematocrit 23.6 % (36.0-45.0); Lymphocytes % 13.2 % (15.3-44.8); MCV 92.9 fL (80-100); MPV 9.4 fL (7.6-11.3); RBC Red Blood Cell Count 2.54 M/uL (3.86-4.86)
[2022-10-12 03:51] LABS: Albumin 2.6 g/dL (3.4-5.0); Bilirubin Total 0.8 mg/dL (0.2-1.0); Potassium 3.9 mmol/L (3.5-5.1); Protein, Total 5.7 g/dL (6.4-8.2)
[2022-10-12] MEDS: INSULIN -REGULAR HUMAN 50 UNIT/0.5 ML ML SQ SCH ×4 (07:30→20:33)
--- NOTE | 2022-10-12 07:45 | RAD REPORT ---
EXAM DESCRIPTION: RAD - Chest Single View - 10/12/2022 7:08 am CLINICAL HISTORY: Congestive heart failure possibly pneumonia COMPARISON: 10/11/2022 FINDINGS: Lines: None. Lungs: No significant change in bilateral airspace disease. Pleural: Unchanged small moderate left pleural effusion. Small right effusion. Cardiac: The heart size is within normal limits. Mediastinum: Within normal limits. Bones: No acute fractures. Other: Sternotomy IMPRESSION: No significant change in aeration lungs. Effusions and bilateral airspace disease that m ay reflect edema and/or multifocal pneumonia.
[2022-10-12] MEDS: INSULIN GLARGINE 100 UNIT/ML SQ SCH (09:00)
[2022-10-12] MEDS: FUROSEMIDE 40 MG/4 ML VIAL IV SCH (09:31)
[2022-10-12] MEDS: ASPIRIN EC 81 MG TAB PO SCH (09:31)
[2022-10-12] MEDS: CLOPIDOGREL 75 MG TABLET PO SCH (09:31)
[2022-10-12] MEDS: ENOXAPARIN 40 MG/0.4 ML SQ SCH (09:31)
[2022-10-12] MEDS: CEFEPIME 1 GM in NA CHLORIDE 0.9% 100 ML IV SCH ×2 (09:31→20:20)
[2022-10-12] MEDS ORDERED: ALBUTEROL 2.5 MG/3 ML NEB SOL NEB PRN (10:00)
[2022-10-12] MEDS ORDERED: VANCOMYCIN 1.5 GM in NA CHLORIDE 0.9% 500 ML IVPB SCH (12:00)
[2022-10-12] MEDS: BENZONATATE 100 MG CAP PO PRN ×2 (14:46→20:32)
--- NOTE | 2022-10-12 17:14 | P.PN ---
Subjective Date of Service: 10/12/22 Chief Complaint: Shortness of breath No acute events overnight. She reports that her shortness of breath is gradually improving; however, she continues to have significant dry cough. She requests an as needed cough medicine, which we will start for her. She denies any chest pain or palpitations. Review of Systems 10-point ROS is otherwise unremarkable Respiratory: Cough, Dry, Shortness of Breath Physical Examination - Vital Signs Temperature: 97.8 F Blood Pressure: 115/52 Pulse: 83 Respirations: 16 Pulse Ox (%): 97 Assessment And Plan - Plan - Physical Exam General: Alert, In no apparent distress, Oriented x3 HEENT: Atraumatic, Mucous membr. moist/pink, EOMI, Sclerae nonicteric Neck: JVD not distended Respiratory: Diminished, Scattered rhonchi/gurgles, bibasilar rales Cardiovascular: No edema, Regular rate/rhythm, Normal S1 S2, No gallops, No rubs, No murmurs Gastrointestinal: Normal bowel sounds, Soft and benign, Non-distended, No tenderness, No rebound, No guarding Musculoskeletal: No clubbing Integumentary: No rashes Neurological: Normal speech, Cranial nerves 3-12 intact, Normal affect # Severe Sepsis likely secondary to Bilateral Pneumonia (concern for HCAP) # Thrombocytopenia due to above She met sepsis criteria based on temperature > 100.9 F, HR > 90 bpm and RR > 20 breaths/min, and the suspected source is pneumonia. Severe sepsis is suspected due to concern for tissue hypoperfusion/organ dysfunction based on a platelet count <100,000 and a lactic acid > 2 mmol/L. - Chest x-ray (10/10) = "Moderate bilateral pulmonary opacities are present likely representing bilateral pneumonia, appears moderately worse relative to 08/31/2022. The heart is mildly enlarged in size. Sternotomy wires present" - CT chest (10/10) = "Moderate alveolar opacity in the posterior right upper lobe and similar infiltrate in the left lung base favored to represent pneumonia. Small to moderate bilateral pleural effusions." - Sepsis order set was initiated - Lactate = 2.2 -> 1.5 - Procalcitonin = 0.83 - Sputum culture = pending - Blood cultures drawn before antibiotics were given - Broad spectrum antibiotics started: Vancomycin + Cefepime - In regards to fluids: - 30 mL/kg of IV fluids was not administered given SBP > 90, MAP > 65, and hypervolemia from acute CHF - PRN benzonatate, guaifenesin # Acute on Chronic Decompensated Systolic Congestive Heart Failure with Reduced Ejection Fraction (LVEF 40%) - Transthoracic echocardiogram (August 2022) = "1. moderate global hypokinesis 2. mild mitral regurgitation, tricuspid regurgitation 3. ejection fraction 40%" - NT-Pro BNP = 3,412 - Diuresis with IV furosemide - Daily weights - Strict I/O - Cardiac diet, 1.5 L fluid restriction, 2 g Na restriction # Chronic Obstructive Pulmonary Disease - Does not appear to be in acute COPD exacerbation - Consulted Pulmonary Medicine - recommendations appreciated - Consulted Respiratory Therapy - Supplemental oxygen to maintain SpO2 > 92% - Encouraged incentive spirometry # Hyperglycemia in Type II Diabetes Mellitus # Diabetic Neuropathy - Hgb A1c = 6.5 % - Continue insulin glargine + correction scale insulin # Coronary Artery Disease s/p PCI and CABG # Hypertension # Hyperlipidemia # Obesity - BMI 32.4 kg/m2 - Stable - Continue home aspirin, atorvastatin, clopidogrel - PRN hydralazine - Hold beta-blockers, ALTA-I/ARB given concern for # Chronic Kidney Disease Stage III - Creatinine near baseline - IV diuretics as mentioned above - Monitor creatinine and urine output - Renally dose medications Mario Kumar M.D.
--- NOTE | 2022-10-12 17:42 | EKG ---
Test Date: 2022-10-10 Test Time: 17:38:28 Print Production Manager: MB MEASUREMENT RESULTS: Intervals: Rate: 96 NV: 184 QRSD: 86 QT: 340 QTc: 429 [place]: P: 58 NV: 184 QRS: 60 T: 199 INTERPRETIVE STATEMENTS: Normal sinus rhythm with sinus arrhythmia Anteroseptal infarct, age undetermined ST & T wave abnormality, consider inferolateral ischemia Abnormal ECG Compared to ECG 08/30/2022 19:20:33 ST (T wave) deviation now present Possible ischemia now present Sinus tachycardia no longer present Myocardial infarct finding still present Electronically Signed On 10-12-22 17:40:16 [employer]IE CAR[employer]ER by Edwin Dia
[2022-10-12] MEDS ORDERED: NA CHLORIDE 0.9% 100 ML ONE (20:13)
[2022-10-12] MEDS: ATORVASTATIN 40 MG TAB PO SCH (20:32)
[2022-10-12] MEDS: ACETAMINOPHEN 500 MG TAB PO PRN (20:42)
[2022-10-13] MEDS ORDERED: ALPRAZOLAM 0.25 MG TABLET PO ONE (01:25)
[2022-10-13 04:03] LABS: Absolute Lymphocytes (CBC) 0.6 K/uL (0.7-4.9); Hematocrit 22.4 % (36.0-45.0); Lymphocytes % 18.8 % (15.3-44.8); MCV 92.1 fL (80-100); MPV 8.9 fL (7.6-11.3); RBC Red Blood Cell Count 2.43 M/uL (3.86-4.86)
[2022-10-13 04:26] LABS: Potassium 3.1 mmol/L (3.5-5.1)
[2022-10-13] MEDS: INSULIN -REGULAR HUMAN 50 UNIT/0.5 ML ML SQ SCH ×4 (07:30→20:18)
[2022-10-13] MEDS: INSULIN GLARGINE 100 UNIT/ML SQ SCH (09:00)
[2022-10-13] MEDS: FUROSEMIDE 40 MG/4 ML VIAL IV SCH (09:17)
[2022-10-13] MEDS: CLOPIDOGREL 75 MG TABLET PO SCH (09:17)
[2022-10-13] MEDS: ENOXAPARIN 40 MG/0.4 ML SQ SCH (09:17)
[2022-10-13] MEDS: CEFEPIME 1 GM in NA CHLORIDE 0.9% 100 ML IV SCH ×2 (09:17→20:17)
[2022-10-13] MEDS: ASPIRIN EC 81 MG TAB PO SCH (09:18)
[2022-10-13] MEDS: guaiFENesin 100 MG/5 ML UCUP PO PRN ×2 (09:18→21:15)
--- NOTE | 2022-10-13 16:42 | P.PN ---
Subjective Date of Service: 10/13/22 Chief Complaint: Shortness of breath No acute events overnight. She reports that her shortness of breath is gradually improving. She states that her shortness of breath is worse with exertion. She mentions that her cough is persistent and unchanged compared to yesterday. She denies any chest pain or palpitations. Review of Systems 10-point ROS is otherwise unremarkable Respiratory: Cough, Dry, Shortness of Breath Physical Examination - Vital Signs Temperature: 98 F Blood Pressure: 134/60 Pulse: 103 Respirations: 20 Pulse Ox (%): 98 Assessment And Plan - Plan - Physical Exam General: Alert, In no apparent distress, Oriented x3 HEENT: Atraumatic, Mucous membr. moist/pink, EOMI, Sclerae nonicteric Neck: JVD not distended Respiratory: Diminished, Scattered rhonchi/gurgles, faint bibasilar rales Cardiovascular: No edema, Regular rate/rhythm, Normal S1 S2, No gallops, No rubs, No murmurs Gastrointestinal: Normal bowel sounds, Soft and benign, Non-distended, No tenderness, No rebound, No guarding Musculoskeletal: No clubbing Integumentary: No rashes Neurological: Normal speech, Cranial nerves 3-12 intact, Normal affect # Severe Sepsis likely secondary to Bilateral Pneumonia (concern for HCAP) # Thrombocytopenia due to above She met sepsis criteria based on temperature > 100.9 F, HR > 90 bpm and RR > 20 breaths/min, and the suspected source is pneumonia. Severe sepsis is suspected due to concern for tissue hypoperfusion/organ dysfunction based on a platelet count <100,000 and a lactic acid > 2 mmol/L. - Chest x-ray (10/10) = "Moderate bilateral pulmonary opacities are present likely representing bilateral pneumonia, appears moderately worse relative to 08/31/2022. The heart is mildly enlarged in size. Sternotomy wires present" - CT chest (10/10) = "Moderate alveolar opacity in the posterior right upper lobe and similar infiltrate in the left lung base favored to represent pneumonia. Small to moderate bilateral pleural effusions." - Sepsis order set was initiated - Lactate = 2.2 -> 1.5 - Procalcitonin = 0.83 - Sputum culture = pending - Blood cultures drawn before antibiotics were given - Broad spectrum antibiotics started: Vancomycin + Cefepime - In regards to fluids: - 30 mL/kg of IV fluids was not administered given SBP > 90, MAP > 65, and hypervolemia from acute CHF - PRN benzonatate, guaifenesin # Acute on Chronic Decompensated Systolic Congestive Heart Failure with Reduced Ejection Fraction (LVEF 40%) - Transthoracic echocardiogram (August 2022) = "1. moderate global hypokinesis 2. mild mitral regurgitation, tricuspid regurgitation 3. ejection fraction 40%" - NT-Pro BNP = 3,412 - Diuresis with IV furosemide - Plan to transition to PO over the next 24-48 hours - Daily weights - Strict I/O - Cardiac diet, 1.5 L fluid restriction, 2 g Na restriction # Chronic Obstructive Pulmonary Disease - Does not appear to be in acute COPD exacerbation - Consulted Pulmonary Medicine - recommendations appreciated - Consulted Respiratory Therapy - Supplemental oxygen to maintain SpO2 > 92% - Encouraged incentive spirometry # Hyperglycemia in Type II Diabetes Mellitus # Diabetic Neuropathy - Hgb A1c = 6.5 % - Continue insulin glargine + correction scale insulin # Coronary Artery Disease s/p PCI and CABG # Hypertension # Hyperlipidemia # Obesity - BMI 32.4 kg/m2 - Stable - Continue home aspirin, atorvastatin, clopidogrel - PRN hydralazine - Hold beta-blockers, ALTA-I/ARB given concern for sepsis # Chronic Kidney Disease Stage III - Creatinine near baseline - IV diuretics as mentioned above - Monitor creatinine and urine output - Renally dose medications Mario Kumar M.D.
[2022-10-13] MEDS: ATORVASTATIN 40 MG TAB PO SCH (20:18)
[2022-10-13] MEDS: BENZONATATE 100 MG CAP PO PRN (20:18)
[2022-10-14] MEDS: INSULIN -REGULAR HUMAN 50 UNIT/0.5 ML ML SQ SCH ×4 (07:30→21:00)
[2022-10-14] MEDS ORDERED: CEFEPIME 1 GM/VIAL ONE (08:03)
[2022-10-14] MEDS: ENOXAPARIN 40 MG/0.4 ML SQ SCH (09:00)
[2022-10-14] MEDS: CEFEPIME 1 GM in NA CHLORIDE 0.9% 100 ML IV SCH (09:02)
[2022-10-14] MEDS: ASPIRIN EC 81 MG TAB PO SCH (09:02)
[2022-10-14] MEDS: FUROSEMIDE 40 MG/4 ML VIAL IV SCH (09:02)
[2022-10-14] MEDS: CLOPIDOGREL 75 MG TABLET PO SCH (09:03)
[2022-10-14] MEDS: INSULIN GLARGINE 100 UNIT/ML SQ SCH (09:03)
[2022-10-14] MEDS: CEFEPIME 2 GM in NA CHLORIDE 0.9% 100 ML IV SCH (22:13)
[2022-10-14] MEDS: ATORVASTATIN 40 MG TAB PO SCH (22:14)
[2022-10-15] MEDS: INSULIN -REGULAR HUMAN 50 UNIT/0.5 ML ML SQ SCH ×4 (07:30→20:53)
[2022-10-15] MEDS: CEFEPIME 2 GM in NA CHLORIDE 0.9% 100 ML IV SCH (08:45)
[2022-10-15] MEDS: FUROSEMIDE 40 MG/4 ML VIAL IV SCH (08:46)
[2022-10-15] MEDS: INSULIN GLARGINE 100 UNIT/ML SQ SCH (08:46)
[2022-10-15] MEDS: ASPIRIN EC 81 MG TAB PO SCH (08:46)
[2022-10-15] MEDS: ENOXAPARIN 40 MG/0.4 ML SQ SCH (08:46)
[2022-10-15] MEDS: CLOPIDOGREL 75 MG TABLET PO SCH (08:46)
[2022-10-15 11:32] LABS: Absolute Lymphocytes (CBC) 0.8 K/uL (0.7-4.9); Hematocrit 25.2 % (36.0-45.0); Lymphocytes % 41.5 % (15.3-44.8); RBC Red Blood Cell Count 2.77 M/uL (3.86-4.86)
[2022-10-15 12:11] LABS: Bilirubin Total 0.6 mg/dL (0.2-1.0); Magnesium 1.7 mg/dL (1.6-2.4); Potassium 3.8 mmol/L (3.5-5.1); Protein, Total 6.9 g/dL (6.4-8.2)
--- NOTE | 2022-10-15 12:27 | P.PN ---
Subjective Date of Service: 10/15/22 Chief Complaint: Shortness of breath Subjective: Improving (Patient is improving doing better no fever or chills slight cough) Review of Systems General: Weakness Respiratory: Shortness of Breath Physical Examination - Vital Signs Temperature: 97.8 F Blood Pressure: 113/53 Pulse: 86 Respirations: 17 Pulse Ox (%): 100 - Physical Exam General: Alert, Oriented x3 Respiratory: Clear to auscultation bilaterally Cardiovascular: No edema, Normal pulses Assessment And Plan - Current Problems (Diagnosis) (1) Congestive heart failure Current Visit: Yes Status: Acute Plan: Patient admitted with CHF complaining of a cough feeling better has chronic renal failure also developed pancytopenia no clinical evidence of sepsis DC cefepime last echocardiogram shows diminished ejection fraction vital signs are stable oxygenation satisfactory plan for discharge patient does have nebulizers and inhalers at home DC antibiotics for now quite possible there is bone marrow suppressive effect of cefepime Qualifiers: Heart failure type: systolic Physician Review: Patient Assessed, Agree with Above Assessment and Plan
[2022-10-15 12:56] LABS: Blood Morphology Comment NOT SEEN (NOT SEEN); Platelet Estimate DECR
--- NOTE | 2022-10-15 15:46 | P.PN ---
Date of Service: 10/14/22 Subjective Clinically doing better. Clinical symptoms are improving. Patient denies any new complaints. Weak and gets real short of breath really easily. Patient w/ diffuse infiltrates since August. History of COVID infection. Review of Systems Shortness of breath Physical Examination - Vital Signs Reviewed Assessment And Plan - Plan - Physical Exam General: Alert, In no apparent distress, Oriented x3 Respiratory: Diminished, crackles basilar region Cardiovascular: Regular rate/rhythm, Normal S1 S2 Gastrointestinal: Soft and benign, Non-distended, No tenderness, NL BS Neurological: No focal deficits # Severe Sepsis likely secondary to Bilateral Pneumonia (concern for HCAP) # Thrombocytopenia due to above # Acute on Chronic Decompensated Systolic Congestive Heart Failure with Reduced Ejection Fraction (LVEF 40%) # Chronic Obstructive Pulmonary Disease # Hyperglycemia in Type II Diabetes Mellitus # Diabetic Neuropathy # Coronary Artery Disease s/p PCI and CABG # Hypertension # Hyperlipidemia # Obesity - BMI 32.4 kg/m2 # Chronic Kidney Disease Stage III Plan: 1. Continue with IV antibiotics 2. Awaiting sputum and blood culture 3. Repeat chest x-ray 4. CT scan of the chest reviewed 5. Appreciate pulmonary consultation 6. Continue with nebs as needed 7. O2 per protocol 8. Heplock IV and gently diurese with low EF(40%) 9. Repeat labs 10. GI and DVT prophylaxis
[2022-10-15] MEDS ORDERED: FUROSEMIDE 20 MG/ 2ML VIAL IV ONE (16:00)
[2022-10-15] MEDS: METHYLPREDNISOLONE 40 MG INJ IV SCH (16:20)
[2022-10-15] MEDS: ACETAMINOPHEN 500 MG TAB PO PRN (20:52)
[2022-10-15] MEDS: ATORVASTATIN 40 MG TAB PO SCH (20:53)
[2022-10-15] MEDS: BENZONATATE 100 MG CAP PO PRN (20:53)
[2022-10-16] MEDS: METHYLPREDNISOLONE 40 MG INJ IV SCH ×3 (01:26→12:29)
[2022-10-16 06:50] LABS: Absolute Lymphocytes (CBC) 0.3 K/uL (0.7-4.9); Hematocrit 24.4 % (36.0-45.0); Lymphocytes % 31.2 % (15.3-44.8); MCV 89.4 fL (80-100); MPV 9.2 fL (7.6-11.3); RBC Red Blood Cell Count 2.73 M/uL (3.86-4.86)
[2022-10-16 07:13] LABS: Albumin 2.7 g/dL (3.4-5.0); Bilirubin Total 0.4 mg/dL (0.2-1.0); Magnesium 1.7 mg/dL (1.6-2.4); Protein, Total 6.5 g/dL (6.4-8.2)
--- NOTE | 2022-10-16 08:28 | RAD REPORT ---
EXAM DESCRIPTION: RAD - Chest Single View - 10/16/2022 5:40 am CLINICAL HISTORY: pneumonia Chest pain. COMPARISON: Chest Single View dated 10/12/2022; Chest Single View dated 10/11/2022; Chest Single View da osman 10/10/2022; Chest Single View dated 08/31/2022 FINDINGS: Portable technique limits examination quality. The lungs are mildly emphysematous but grossly clear. Cardiac size is mildly prominent with changes o f a prior CABG. No displaced fractures. IMPRESSION: COPD.
[2022-10-16] MEDS: FUROSEMIDE 40 MG TABLET PO SCH (08:44)
[2022-10-16] MEDS: CLOPIDOGREL 75 MG TABLET PO SCH (08:44)
[2022-10-16] MEDS: INSULIN -REGULAR HUMAN 50 UNIT/0.5 ML ML SQ SCH ×4 (08:44→21:02)
[2022-10-16] MEDS: ASPIRIN EC 81 MG TAB PO SCH (08:44)
[2022-10-16] MEDS: ENOXAPARIN 40 MG/0.4 ML SQ SCH (08:44)
[2022-10-16] MEDS: INSULIN GLARGINE 100 UNIT/ML SQ SCH (08:45)
--- NOTE | 2022-10-16 12:30 | P.PN ---
Date of Service: 10/15/22 Subjective Continues to improve. However she still states she is getting short of breath when she is ambulating. Room air O2 sats were 95% at rest and exertion. We will discharge over the next 24 to 48 hours. Review of Systems Shortness of breath Physical Examination - Vital Signs Reviewed - Physical Exam General: Alert, In no apparent distress, Oriented x3 Respiratory: Clear bilaterally Cardiovascular: Regular rate/rhythm, Normal S1 S2 Gastrointestinal: Soft and benign, Non-distended, No tenderness, NL BS Neurological: No focal deficits Assessment And Plan - Assessment # Severe Sepsis likely secondary to Bilateral Pneumonia (concern for HCAP) # Thrombocytopenia due to above # Acute on Chronic Decompensated Systolic Congestive Heart Failure with Reduced Ejection Fraction (LVEF 40%) # Chronic Obstructive Pulmonary Disease # Hyperglycemia in Type II Diabetes Mellitus # Diabetic Neuropathy # Coronary Artery Disease s/p PCI and CABG # Hypertension # Hyperlipidemia # Obesity - BMI 32.4 kg/m2 # Chronic Kidney Disease Stage III - Plan Continue with plan of care as mentioned below: 1. Continue with IV antibiotics 2. Awaiting sputum and blood culture 3. Repeat chest x-ray 4. CT scan of the chest reviewed 5. Appreciate pulmonary consultation 6. Continue with nebs as needed 7. O2 per protocol 8. Heplock IV and gently diurese with low EF(40%) 9. Repeat labs 10. GI and DVT prophylaxis
[2022-10-16] MEDS ORDERED: NITROGLYCERIN 0.4 MG/TAB SL PRN (15:23)
[2022-10-16] MEDS: TBO-FILGRASTIM 480 MCG/0.8 ML SYR SQ SCH (16:11)
[2022-10-16] MEDS: ATORVASTATIN 40 MG TAB PO SCH (21:02)
[2022-10-16] MEDS ORDERED: HYDRALAZINE HCL 20 MG/ML VIAL IV PRN (22:35)
[2022-10-16] MEDS ORDERED: MELATONIN 5 MG TABLET PO PRN (22:35)
[2022-10-17] MEDS: INSULIN -REGULAR HUMAN 50 UNIT/0.5 ML ML SQ SCH ×4 (07:30→21:05)
[2022-10-17] MEDS: ASPIRIN EC 81 MG TAB PO SCH (08:36)
[2022-10-17] MEDS: FUROSEMIDE 40 MG TABLET PO SCH (08:36)
[2022-10-17] MEDS: CLOPIDOGREL 75 MG TABLET PO SCH (08:36)
[2022-10-17] MEDS: ENOXAPARIN 40 MG/0.4 ML SQ SCH (08:37)
[2022-10-17] MEDS: INSULIN GLARGINE 100 UNIT/ML SQ SCH (08:37)
[2022-10-17] MEDS: TBO-FILGRASTIM 480 MCG/0.8 ML SYR SQ SCH (08:56)
[2022-10-17 11:46] LABS: Albumin 2.8 g/dL (3.4-5.0); Bilirubin Total 0.3 mg/dL (0.2-1.0); Magnesium 1.6 mg/dL (1.6-2.4); Potassium 3.6 mmol/L (3.5-5.1); Protein, Total 6.2 g/dL (6.4-8.2)
[2022-10-17 14:40] LABS: Absolute Lymphocytes (CBC) 2.3 K/uL (0.7-4.9); Lymphocytes % 7.9 % (15.3-44.8); MCV 89.7 fL (80-100); MPV 9.4 fL (7.6-11.3)
[2022-10-17 15:59] LABS: Blood Morphology Comment NOT SEEN (NOT SEEN); Platelet Estimate DECR
[2022-10-17] MEDS: ATORVASTATIN 40 MG TAB PO SCH (21:05)
[2022-10-18 04:50] VITALS: TEMP 96.9
[2022-10-18 06:57] LABS: Absolute Lymphocytes (CBC) 2.1 K/uL (0.7-4.9); Hematocrit 22.5 % (36.0-45.0); Lymphocytes % 7.8 % (15.3-44.8); MCV 90.9 fL (80-100); MPV 9.1 fL (7.6-11.3); RBC Red Blood Cell Count 2.48 M/uL (3.86-4.86)
[2022-10-18 07:11] LABS: Albumin 2.5 g/dL (3.4-5.0); Bilirubin Total 0.3 mg/dL (0.2-1.0); Magnesium 1.6 mg/dL (1.6-2.4); Phosphorus 3.3 mg/dL (2.5-4.9); Potassium 3.2 mmol/L (3.5-5.1); Protein, Total 5.6 g/dL (6.4-8.2)
[2022-10-18] MEDS: INSULIN -REGULAR HUMAN 50 UNIT/0.5 ML ML SQ SCH (07:30)
--- NOTE | 2022-10-18 07:36 | P.PN ---
Date of Service: 10/16/22 Subjective Continues to improve. Patient with leukopenia. Absolute neutrophil count less than 500 in the setting of pneumonia that is improving. Will go ahead and give 1 dose of Neupogen. Review of Systems Shortness of breath Physical Examination - Vital Signs Reviewed - Physical Exam General: Alert, In no apparent distress, Oriented x3 Respiratory: Clear bilaterally Cardiovascular: Regular rate/rhythm, Normal S1 S2 Gastrointestinal: Soft and benign, Non-distended, No tenderness, NL BS Neurological: No focal deficits Assessment And Plan - Assessment # Severe Sepsis likely secondary to Bilateral Pneumonia (concern for HCAP) # Pancytopenia with absolute neutrophil count of less than 500 # Acute on Chronic Decompensated Systolic Congestive Heart Failure with Reduced Ejection Fraction (LVEF 40%) # Chronic Obstructive Pulmonary Disease # Hyperglycemia in Type II Diabetes Mellitus # Diabetic Neuropathy # Coronary Artery Disease s/p PCI and CABG # Hypertension # Hyperlipidemia # Obesity - BMI 32.4 kg/m2 # Chronic Kidney Disease Stage III - Plan Continue with plan of care as mentioned below: 1. Continue with IV antibiotics 2. cultures negative but will give 1 dose of Neupogen 3. Repeat chest x-ray 4. CT scan of the chest reviewed 5. Appreciate pulmonary consultation 6. Continue with nebs as needed 7. O2 per protocol 8. Heplock IV and gently diurese with low EF(40%) 9. Repeat labs 10. GI and DVT prophylaxis
--- NOTE | 2022-10-18 07:37 | P.PN ---
Date of Service: 10/17/22 Subjective white count was elevated but most likely related to Neupogen. Bone marrow responding. Outpatient follow-up with Hematology. Anticipate discharge in the morning. Chest x-ray and labs repeated. Review of Systems Shortness of breath Physical Examination - Vital Signs Reviewed - Physical Exam General: Alert, In no apparent distress, Oriented x3 Respiratory: Clear bilaterally Cardiovascular: Regular rate/rhythm, Normal S1 S2 Gastrointestinal: Soft and benign, Non-distended, No tenderness, NL BS Neurological: No focal deficits Assessment And Plan - Assessment # Severe Sepsis likely secondary to Bilateral Pneumonia (concern for HCAP) # Pancytopenia with absolute neutrophil count of less than 500 # Acute on Chronic Decompensated Systolic Congestive Heart Failure with Reduced Ejection Fraction (LVEF 40%) # Chronic Obstructive Pulmonary Disease # Hyperglycemia in Type II Diabetes Mellitus # Diabetic Neuropathy # Coronary Artery Disease s/p PCI and CABG # Hypertension # Hyperlipidemia # Obesity - BMI 32.4 kg/m2 # Chronic Kidney Disease Stage III - Plan Continue with plan of care as mentioned below: 1. Continue with IV antibiotics 2. cultures negative but given 1 dose of Neupogen; White blood cell count responded appropriately 3. Repeat chest x-ray 4. CT scan of the chest reviewed 5. Appreciate pulmonary consultation 6. Continue with nebs as needed 7. O2 per protocol 8. Heplock IV and gently diurese with low EF(40%) 9. Repeat labs 10. GI and DVT prophylaxis
[2022-10-18 07:41] LABS: Basophilic Stippling 1+; Blood Morphology Comment NOTED (NOT SEEN); Dohle Bodies PRESENT; Ovalocytes 1+; Platelet Estimate ADEQ; Toxic Granulation PRESENT
[2022-10-18] MEDS: ASPIRIN EC 81 MG TAB PO SCH (08:10)
[2022-10-18] MEDS: FUROSEMIDE 40 MG TABLET PO SCH (08:10)
[2022-10-18] MEDS: INSULIN GLARGINE 100 UNIT/ML SQ SCH (08:11)
[2022-10-18] MEDS: CLOPIDOGREL 75 MG TABLET PO SCH (08:11)
[2022-10-18 08:12] VITALS: BP 109/65
--- NOTE | 2022-10-18 08:54 | RAD REPORT ---
EXAM DESCRIPTION: RAD - Chest Single View - 10/18/2022 5:35 am CLINICAL HISTORY: pneumonia Chest pain. COMPARISON: Chest Single View dated 10/16/2022; Chest Single View dated 10/12/2022; Chest Single View d ated 10/11/2022; Chest Single View dated 10/10/2022 FINDINGS: Portable technique limits examination quality. The lungs are emphysematous but grossly clear. The heart is moderately enlarged with changes of a anamaria or CABG. Sternotomy wires. IMPRESSION: Stable findings of COPD.
[2022-10-18] MEDS ORDERED: ENOXAPARIN 30 MG/0.3 ML SQ SCH (09:00)
[2022-10-18 09:19] VITALS: O2SAT 100
--- NOTE | 2022-10-20 14:25 | EKG ---
Test Date: 2022-10-16 Test Time: 16:16:56 Quality Control Manager: Halley AVINA MEASUREMENT RESULTS: Intervals: Rate: 79 KS: 186 QRSD: 96 QT: 432 QTc: 495 [place]: P: 58 KS: 186 QRS: -5 T: 83 INTERPRETIVE STATEMENTS: Normal sinus rhythm Nonspecific T wave abnormality Prolonged QT Abnormal ECG Compared to ECG 10/10/2022 17:38:28 T-wave abnormality now present Prolonged QT interval now present Sinus arrhythmia no longer present Myocardial infarct finding no longer present ST (T wave) deviation no longer present Possible ischemia no longer present Electronically Signed On 10-20-22 14:23:22 BODY TECHNICIAN by Robson Ramos
--- NOTE | 2022-10-21 17:40 | EKG ---
Test Date: 2022-10-16 Test Time: 16:17:29 Millinery Designer: Halley AVINA MEASUREMENT RESULTS: Intervals: Rate: 81 ME: 188 QRSD: 96 QT: 422 QTc: 490 [place]: P: 52 ME: 188 QRS: -5 T: 100 INTERPRETIVE STATEMENTS: Normal sinus rhythm Nonspecific T wave abnormality Prolonged QT Abnormal ECG Compared to ECG 10/16/2022 16:16:56 No significant changes Electronically Signed On 10-21-22 17:34:42 CUSTOMER SPECIALIST by Edwin Dia
== END 2022-10-18 11:20 | disposition home or self-care (01) | DRG 871 ==
LOC: ER 17:04 → ERHOLD 19:53 → 4TH 21:45
PROVIDERS: ADMIT Internal Medicine; ATTEND Hospitalist
DX: A41.9 Sepsis, unspecified organism (principal); I50.23 Acute on chronic systolic (congestive) heart failure; J18.9 Pneumonia, unspecified organism; J44.0 Chronic obstructive pulmonary disease with (acute) lower respiratory infection; I13.0 Hypertensive heart and chronic kidney disease with heart failure and stage 1 through stage 4 chronic kidney disease, or unspecified chronic kidney disease; D61.818 Other pancytopenia; N18.30 Chronic kidney disease, stage 3 unspecified; E11.22 Type 2 diabetes mellitus with diabetic chronic kidney disease; E11.65 Type 2 diabetes mellitus with hyperglycemia; E11.40 Type 2 diabetes mellitus with diabetic neuropathy, unspecified; D63.1 Anemia in chronic kidney disease; E78.5 Hyperlipidemia, unspecified; E66.9 Obesity, unspecified; I25.10 Atherosclerotic heart disease of native coronary artery without angina pectoris; R65.20 Severe sepsis without septic shock; I25.2 Old myocardial infarction; Y95 Nosocomial condition; Z88.1 Allergy status to other antibiotic agents; Z95.5 Presence of coronary angioplasty implant and graft; Z79.4 Long term (current) use of insulin; Z86.16 Personal history of COVID-19; Z68.32 Body mass index [BMI] 32.0-32.9, adult; Z79.82 Long term (current) use of aspirin; Z79.02 Long term (current) use of antithrombotics/antiplatelets; Z79.899 Other long term (current) drug therapy; Z87.891 Personal history of nicotine dependence; Z20.822 Contact with and (suspected) exposure to COVID-19
CPT/HCPCS: 0241U; 36415; 71045; 71250; 80048; 80053; 80202; 82607; 82747; 82947; 83036; 83540; 83605; 83735; 83880; 84100; 84145; 84484; 85025; 85044; 85610; 85730; 86038; 86140; 87040; 93005; 94010; 94640; 96374; 96375; 99285; J0360; J0456; J0692; J1447; J1650; J1815; J1940; J2920; J3370; J7040; J7050; J7613; J7644

== ENCOUNTER 2023-03-25 15:25 | Observation (INO) | payer OTHER ==
--- OUTSIDE RECORDS SUMMARY | 2023-03-25 15:35 | XMS REPORT | Continuity of Care Document ---
:1945 Author Organization [facility] t Address [address] [facility] [address] [place] [address] Care Team Providers Name Role Phone Vincent ALEXANDER, Diane Poe Primary Care Physician [phone] Shawn Quintanilla Attending Clinician Unavailable PRISCILA GUILLORY Attending Clinician Unavailable Niles ALEXANDER, Chris Carpenter Attending Clinician Kj ALEXANDER, Suman Rowley Attending Clinician Priscila Guillory MD Attending Clinician PRISCILA GUILLORY Attending Clinician Unavailable DIANE WHITEHEAD Attending Clinician Unavailable Lab, Ang - Db Attending Clinician Unavailable SUMAN UNDERWOOD Attending Clinician Unavailable Marin Muller MD Attending Clinician LOTTIE, SENDELGIN K.H. Attending Clinician Unavailable Pob, Adc Lab Main Attending Clinician Unavailable Marion Vu DPM Attending Clinician MARION VU JR Attending Clinician Unavailable Doctor Unassigned, Sugden Attending Clinician Unavailable Nilo Jimenez MD Attending Clinician NILO JIMENEZ Attending Clinician Unavailable BRODY PLAZA Attending Clinician Unavailable Cade HUYNH, Sandra Toledo Attending Clinician Unavailable Last Huff DO Attending Clinician Tramaine Monique MD Attending Clinician Ashok SABA MD, Michael James Attending Clinician [phone] Yamilet Humphreys MD Attending Clinician Migdalia Gong MD Attending Clinician [phone] Praveena Espinoza Attending Clinician PRAVEENA SMITH Attending Clinician Unavailable PATRICIA RODRÍGUEZ Attending Clinician Unavailable PATRICIA RODRÍGUEZ Attending Clinician Unavailable Lottie ALEXANDER, Sendelgin K.H. Attending Clinician SAHARA RODRIGUEZ Attending Clinician Unavailable BECKIE BEDOYA Attending Clinician Unavailable RENEE REYES Attending Clinician Unavailable Radha Salinas Attending Clinician Unavailable LAST HUFF Attending Clinician Unavailable FELY DELACRUZ Attending Clinician Unavailable JOEY EDGE Attending Clinician Unavailable PRISCILA GUILLORY Admitting Clinician Unavailable NILO JIMENEZ Admitting Clinician Unavailable Ashok SABA MD, Michael James Admitting Clinician [phone] SUMAN UNDERWOOD Admitting Clinician Unavailable Radha Salinas Admitting Clinician Unavailable KJ WILL Admitting Clinician Unavailable HUFF, LAST Admitting Clinician Unavailable Payers Payer Name Policy Type Policy Number Effective Date Expiration Date S nickolas [employer] MEDICARE [id number] 2020 00:00:00 WELLMED/UHC DUAL [id number] 2020 COMP HMO D SNP 00:00:00 [facility] [id number] 2021 MEDICAID 00:00:00 MEDICAID [facility] [id number] 2011 00:00:00 WELLMED DUAL [id number] COMPLETE SNP [facility]-MEDICAID - [id number] MEDICAID MARKET[employer] PLAN [id number] 2019 HMO - [place] 00:00:00 Problems Condition Condition Condition Status Onset Resolution Last Treating Co mments Source Name Details Category Date Date Treatment Clinician Date 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 5-11 st without without 00:00: Hospita obstructio obstructio 00 l n or n or gangrene gangrene Peripheral Peripheral Disease Recurre [facility] artery artery nce 9-13 [facility] disease disease 00:[facility]: Medical 00 Center PAD PAD Disease Active [facility] (periphera (periphera 8-25 Co llege l artery l artery 00:00: of disease) disease) 00 Medici n (HCCode) (HCCode) e Noncomplia Noncomplia Disease Active U dianaers nce nce 2-15 ity of 00:00: [place] 00 [facility] Branch Acidosis Acidosis Disease Active Unive rs 2-04 ity of 00:00: [place] 00 [facility] Chronic Chronic Disease Active 2020-10 Univers anemia anemia 1-06 ity of 00:00: [place] 00 Medical Branch Gastroesop Gastroesop Disease Active U nivers hageal hageal 8-31 ity of reflux reflux [...] [place] [facility] Cervical Cervical Disease Active 2019- Unive rs spine spine 5-12 ity of arthritis arthritis [place] [facility] Chronic Chronic Disease Active 2020- [facility] neck pain neck pain 5-12 ity of 00:00: [place] [facility] Microscopi Microscopi Disease Active 2020- U nivers c c 3-01 ity of hematuria hematuria 00:00[place] [facility] Lower Lower Disease Active Univers urinary urinary 3-01 ity of tract tract 00:00: [place] symptoms symptoms 00 Medica l Branch Chronic Chronic Disease Active Univers diarrhea diarrhea 2-27 ity of 00:00: [place] [facility] Medicare Medicare Disease Active 2018-10 [...] mellitus 00:00: [place] with with 00 Medical neurologic neurologic Br anch al al complicati complicati ons ons UTI (lower UTI (lower Disease Active U nivers urinary urinary 01-10 ity of tract tract 00:00: [place] infection) infection) 00 Me dical Branch Hyperkalem Hyperkalem Disease Active U nivers ia ia 01-10 ity of 00:00: [place] 00 Medical Branch Type 2 Type 2 Disease Active Univers diabetes diabetes 01-10 ity of mellitus mellitus 00:00: [place] with with 00 Medical complicati complicati Br anch on, with on, with long-term long-term current current use of use of insulin insulin Fatty Fatty Disease Active [facility] liver liver 11-07 ity of disease, disease, 00:00: [place] nonalcohol nonalcohol 00 Me dical ic ic Branch Ischemic Ischemic Disease Active 2014-10 Unive rs cardiomyop cardiomyop 16 it y of athy athy 00:00: [place] 00 Medical Branch 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 10-21 ity of disease disease 00:00: [place] involving involving 00 Medi hiram alturas alturas Branch coronary coronary artery artery without without angina angina pectoris pectoris PAD PAD Disease Active 2014-10 Univers (periphera (periphera 10-21 it y of l artery l artery 00:00: [place] disease) disease) 00 Medica l Branch Essential Essential Disease Active 2014-10 Uni vers hypertensi hypertensi 16 it y of on on 00:00: [place] 00 Medical Branch COPD COPD Disease Active Univers (chronic (chronic ity of obstructiv obstructiv [place] Medical pulmonary pulmonary Bran ch disease) disease) Dyslipidem Dyslipidem Disease Active U nivers ia ia ity of [place] [facility] Allergies, Adverse Reactions, Alerts Allergy Allergy Status Severity Reaction(s) Onset Inactive Treating Comm ents Source Name Type Date Date Clinician Ciproflo Propensi Active Hiv Method i xacin ty to 02-13 st adverse 00:00: Hospita reaction 00 l s to drug CIPROFLO Allergy Active Itching 2021-[address] [facility] XACIN 9-12 [facility] Center METFORMI Allergy Active Diarrhea 2021-0 [facility] N [facility]12 [facility] Center ORANGE Allergy Active Diarrhea 2021-[address] [facility] FLOWER 9-12 [facility] 00:[facility]: Medical 00 Center Ciproflo Propensi Active Itching 2021-0 [facility] xacin ty to 9-12 [facility] adverse 00:00: Medical reaction 00 Center s Metformi Propensi Active Diarrhea 2021-[address] n ty to 9-12 [facility] adverse 00:00: Medical reaction 00 Center s [place] Propensi Active Diarrhea 2021-[address] Flower ty to 9-12 [facility] adverse 00:00: Medical reaction 00 Center s Metformi Propensi Active Diarrhea 2020- [facility] n ty to 0-28 College adverse 00:00: of reaction 00 Medicin s to e drug Metformi Propensi Active Diarrhea 2020-1 Univ ers n ty to 0-28 ity of adverse 00:00: [place] reaction 00 Medical s Branch METFORMI DRUG Active Diarrhea 2020-1 Univer s N INGREDI 0-28 ity of 00:00: [place] 00 Medical Branch ORANGE DRUG Active High Diarrhea 2020-0 Univers JUICE INGREDI 8-29 ity of 00:00: [place] 00 Medical Branch [place] Propensi Active Diarrhea 2020-0 Univer s Juice ty to 8-29 ity of adverse 00:00: [place] reaction 00 Medical s Branch [place] Propensi Active Diarrhea 2020-0 Juan José [place]lower ty to 8-29 College [place] adverse 00:00: of reaction 00 Medicin s to e drug ciproflo DA Active U 2018-0 [facility]acin 6[facility]14 [facility] 00:[facility]: [place] [facility] ciproflo DA Active U 2018-0 [facility] xacin 5-03 [facility] 00:00: [address] ciproflo DA Active SV 2017- [facility] xacin 1- 00:00: [address] ciproflo DA Active [place] UNKNOWN [facility] xacin - 00:00: [address] clopidog DA Active [place] diarrhea, [facility] rel headache 06-12 00:00: [address] ciproflo DA Active [place] [facility] xacin 9- [place] 00:[facility]: d 00 [facility] clopidog DA Active [place] [facility] rel 9- [place] 00:[facility]: d 00 [facility] CIPROFLO DRUG Active Med ITCHING Univers XACIN INGREDI 05-23 ity of 00:00: [place] 00 [facility] Ciproflo Propensi Active Itching [place] xacin ty to 8-18 College adverse 00:00: of reaction 00 Medicin s to e drug ciproflo DA Active [facility] clopidog DA Active [place] [facility] rel 7[facility]10 [facility] Social History Social Habit Start Date Stop Date Quantity Comments Source History SDOH [facility] Alcohol Comment Medical C enter [facility] History of tobacco Current smoker [facility] use Hospital History SDOH [facility] Alcohol Std Drinks Medica l Center History SDOH [facility] Alcohol Binge Medical Alicia ter Exposure to Not sure University of SARS-CoV-2 (event) [facility] Tobacco use and 2023-02-13 2023-02-13 Former smokeless Met hodist exposure 00:00:00 00:00:00 tobacco user Hospital History of Social 2023-02-13 2023-02-[address] function 00:00:00 00:00:00 Hospital Alcohol intake 2022-06-20 2022-06-[address] [facility] 00:00:00 00:00:00 non-drinker Medical Cente r (finding) History SDOH 2022-06-18 2022-06-[address] [facility] Alcohol Frequency 00:00:00 00:00:00 Medical Center Tobacco Comment 2022-06-18 2022-06-18 [facility]rs [facility] Sex Assigned At [address] [facility] 00:00[facility]00 00:[facility]:00 Medical Center Smoking Status Start Date Stop Date Source Ex-smoker 2023-02-13 00:00:00 2023-02-13 00:00:00 [facility] Never smoked tobacco [facility] Deena ege of Medicine Medications Ordered Filled Start Stop Current Ordering Indication Dosage Frequency Signature Comments Components Source Medication Medication Date Date Medication? Clinician (SIG) Name Name potassium Yes 20meq QD Take 1 Metho di chloride 5-11 tablet (20 st (K-DUR) 20 13:05: mEq total) H ospita MEQ CR 57 by mouth l tablet daily. metoprolol Yes [facility] succinate 4-24 st XL 00:00: Hospita (TOPROL-XL) 00 l 50 mg 24 hr tablet ATORVASTATI Yes [id number] 40mg TAKE 1 Univers N 40 mg 1-29 TABLET BY ity of tablet 00:00: MOUTH [place] 00 DAILY. Medical Branch atorvastati Yes 40mg QD Take 40 mg [...] I St -acetaminop 9-13 tablet by Handy es hen (NORCO 21:06: mouth Medica l 7.5-325) 46 [...] I St -acetaminop 9-13 tablet by Handy es hen (apomioCO 21:06: mouth Medica l 7.5-325) 46 every [...] 100 unit/mL (two) injection times daily. HYDROcodone 0 Yes 1{tbl} Take [address] -acetaminop 9-13 tablet by Handy dena gonzalez (NORCO 21:06: mouth Medica l 7.5-325) 46 every 6 Center 7.5-325 mg (six) per tablet hours as needed for Pain. potassium 2022-0 Yes 20meq QD Take [address] [...] I St -acetaminop 9-13 tablet by Handy dena gonzalez (NORCO 21:06: mouth Medica l 7.5-325) 46 every 6 Center 7.5-325 mg (six) per tablet hours as needed for Pain. potassium Yes 20meq QD Take [address] chloride SA 9-13 mEq by [facility] (K-DEMOND,KLOR 21:06: mouth Medic al -CON-M) 20 46 [...] St chloride SA 9-13 mEq by [facility] (K-DEMOND,KLOR 21:06: mouth Medic al -CON-M) 20 46 [...] St chloride SA 9-13 mEq by [facility] (K-LAWRENCE LAGOS 21:06: mouth Medic al -CON-M) 20 46 [...] I St -acetaminop 9-13 tablet by Handy es hen (NORCO 21:06: mouth Medica l 7.5-325) 46 [...] 46 not know Center dose . aspirin 2022- No 81mg QD Take 1 [facility]i (ECOTRIN) 06-18 tablet (81 st 81 MG 00:00: 04:59 mg total) Hospit a enteric 00 :00 by mouth l coated daily. tablet aspirin 81 2022- No 81mg QD Take [address] MG EC 06-18 tablet (81 [facility] tablet 00:00: 23:59 mg total) Medic al 00 :00 by mouth Center daily. clopidogreL 2022- No 75mg QD Take [address] (PLAVIX) 75 06-18 tablet (75 L ukes mg tablet 00:00: 23:59 mg total) Me dical 00 :00 by mouth Center daily. aspirin 81 2022- No 81mg QD Take [address] MG EC 06-18 tablet (81 [facility] tablet 00:00: 23:59 mg total) Medic al 00 :00 by mouth Center daily. clopidogreL 2022- No 75mg QD Take [address] (PLAVIX) 75 06-18 tablet (75 L ukes mg tablet 00:00: 23:59 mg total) Me dical 00 :00 by mouth Center daily. aspirin 81 2022- No 81mg QD Take [address] MG EC 06-18 tablet (81 [facility] tablet 00:00: 23:59 mg total) Medic al 00 :00 by mouth Center daily. clopidogreL 2022- No 75mg QD Take [address] (PLAVIX) 75 06-18 tablet (75 L ukes mg tablet 00:00: 23:59 mg total) Me dical 00 :00 by mouth Center daily. aspirin 81 2022- No 81mg QD Take [address] MG EC 06-18 tablet (81 [facility] tablet 00:00: 23:59 mg total) Medic al 00 :00 by mouth Center daily. clopidogreL 2021-2022- No 75mg QD Take [address] [facility] [...] by mouth Center daily. aspirin 81 2021-0 3- No 81mg QD Take [address] MG EC 06-18 tablet (81 [facility] tablet 00:00: 23:59 mg total) Medic al 00 :00 by mouth Center daily. clopidogreL 2021-0 3- No 75mg QD Take [address] (PLAVIX) 75 06-18 tablet (75 L ukes mg tablet 00:00: 23:59 mg total) Me dical 00 :00 by mouth Center daily. aspirin 81 2021-0 3- No 81mg QD Take [address] [facility] [...] :00 by mouth Center daily. aspirin 81 2021-2021- No 81mg QD Take [address] MG EC 06-18 tablet (81 [facility] tablet 00:00: 00:00 mg total) Medic al 00 :00 by mouth Center daily. clopidogreL 2021-2021- No 75mg QD Take [address] (PLAVIX) 75 06-18 tablet (75 L ukes mg tablet 00:00: 00:00 mg total) Me dical 00 :00 by mouth Center daily. aspirin 81 2021-2021- No 81mg QD Take [address] MG EC 06-18 tablet (81 [facility] tablet 00:00: 00:00 mg total) Medic al 00 :00 by mouth Center daily. clopidogreL 2021-2021- No 75mg QD Take [address] (PLAVIX) 75 06-18 tablet (75 L ukes mg tablet 00:00: 00:00 mg total) Me dical 00 :00 by mouth Center daily. aspirin 81 2021-2021- No 81mg QD Take [address] MG EC 06-18 tablet (81 [facility] tablet 00:00: 00:00 mg total) Medic al 00 :00 by mouth Center daily. clopidogreL 2021-2021- No 75mg QD Take [address] (PLAVIX) 75 06-18 tablet (75 L ukes mg tablet 00:00: 00:00 mg total) Me dical 00 :00 by mouth Center daily. aspirin 81 2021-0 2021- No 81mg QD Take [address] MG EC 06-18 tablet (81 [facility] tablet 00:00: 00:00 mg total) Medic al 00 :00 by mouth Center daily. clopidogreL 2021-0 2021- No 75mg QD Take [address] (PLAVIX) 75 06-18 tablet (75 L ukes mg tablet 00:00: 00:00 mg total) Me dical 00 :00 by mouth Center daily. aspirin 81 2021-0 2- No 81mg QD Take [address] MG EC 06-18 tablet (81 [facility] tablet 00:00: 00:00 mg total) Medic al 00 :00 by mouth Center daily. clopidogreL 2021-0 2- No 75mg QD Take [address] (PLAVIX) 75 06-18 tablet (75 L ukes mg tablet 00:00: 00:00 mg total) Me dical 00 :00 by mouth Center daily. aspirin 81 2021-0 2- No 81mg QD Take [address] MG EC 06-18 tablet (81 [facility] tablet 00:00: 00:00 mg total) Medic al 00 :00 by mouth Center daily. clopidogreL 2021-0 2021- No 75mg QD Take [address] (PLAVIX) 75 06-18 tablet (75 L ukes mg tablet 00:00: 00:00 mg total) Me dical 00 :00 by mouth Center daily. aspirin 81 2021-0 2021- No 81mg QD Take [address] MG EC 06-18 tablet (81 [facility] tablet 00:00: 00:00 mg total) Medic al 00 :00 by mouth Center daily. clopidogreL 2021-0 2021- No 75mg QD Take [address] (PLAVIX) 75 06-18 tablet (75 L ukes mg tablet 00:00: 00:00 mg total) Me dical 00 :00 by mouth Center daily. hydrocodone Yes [facility] -acetaminop 8-18 [place] hen (NORCO) 00:00: of 7.5-325 MG 00 Medicin per tablet e LANTUS Yes [facility] SOLOSTAR 8-04 [place] 100 UNIT/ML 00:00: of SOPN 00 Medicin e atorvastati Yes 40mg QD Take 1 Meth taran n (LIPITOR) 7-25 tablet (40 st 40 mg 00:00: mg total) Hospita tablet 00 by mouth l daily. metoprolol 0 Yes 50mg Take 50 mg [facility] (TOPROL-XL) 7-25 by mouth Deena ege 50 MG XL 00:00: daily. of tablet 00 Medicin e atorvastati 0 Yes 40mg Take 40 mg Juan José n (LIPITOR) 7-25 by mouth Deena ege 40 MG 00:00: daily. of tablet 00 Medicin e furosemide Yes 40mg Take 40 mg [facility] [place] (LASIX) 40 7-25 by mouth Colle ge MG tablet 00:00: daily. of 00 Medicin e insulin Yes [facility] GLARGINE 4-26 st (Lantus 00:00: Hospita Solostar 00 l U-100 Insulin) 100 unit/mL injection (pen) LANTUS Yes [id number] INJECT 52 Un sherrell SOLOSTAR 4-26 UNITS ity of U-100 00:00: UNDER THE [place] INSULIN 100 00 SKIN TWO Medi hiram unit/mL (3 TIMES Branch mL) DAILY. injection LANTUS Yes [id number] INJECT 52 U nivers SOLOSTAR 4-26 UNITS ity of U-100 00:00: UNDER THE [place] INSULIN 100 00 SKIN TWO Medi hiram unit/mL (3 TIMES Branch mL) DAILY. injection albuterol Yes 2{puff} Q6H Inhale 2 M ethodi (PROAIR 2-[address] HFA) 90 00:00: every 6 Hospita mcg/actuati 00 (six) l on inhaler hours as needed. nitroglycer Yes .4mg Place 1 Met hodi in 2-[address] (NITROSTAT) 00:00: (0.4 mg Hos milagro 0.4 MG SL 00 total) l tablet under the tongue. nitroglycer Yes .4mg Place 0.4 [facility] [place] in 2-02 mg under College (NITROSTAT) 00:00: the of 0.4 mg 00 tongue. Medicin sublingual e tablet nitroglycer Yes [id number] .4mg Place 1 Univers in 0.4 mg 2-02 tablet ity of sublingual 00:00: [place] the [place] tablet 00 tongue Medical every 5 Branch (five) minutes as needed for Chest pain. albuterol 0 Yes [id number] 2{puff} Inhale 2 Univers 90 2-02 Puffs ity of mcg/actuati 00:00: every 6 Alber as on inhaler 00 (six) Medical hours as Branch needed for Wheezing or Shortness of Breath. Insulin Yes [id number] 52U inject 52 U nivers Glargine 2-02 Units ity of (LANTUS 00:00: under the [place] SOLOSTAR 00 skin 2 Medical U-100 (two) Branch INSULIN) times 100 unit/mL daily. (3 mL) injection nitroglycer Yes [id number] .4mg Place 1 Univers in 0.4 mg 2-02 tablet ity of sublingual 00:00: under the [place] tablet 00 tongue Medical every 5 Branch (five) minutes as needed for Chest pain. albuterol Yes [id number] 2{puff} Inhale 2 Univers 90 2-02 Puffs ity of mcg/actuati 00:00: every 6 [place] as on inhaler 00 (six) Medical hours as Branch needed for Wheezing or Shortness of Breath. nitroglycer Yes [id number] .4mg Place 1 Univers in 0.4 mg 2-02 tablet ity of sublingual 00:00: under the [place] tablet 00 tongue Medical every 5 Branch (five) minutes as needed for Chest pain. albuterol Yes [id number] 2{puff} Inhale 2 Univers 90 2-02 Puffs ity of mcg/actuati 00:00: every 6 Alber as on inhaler 00 (six) Medical hours as Branch needed for Wheezing or Shortness of Breath. Insulin 2021- No [id number] 52U inject 52 Univers Glargine 2-02 04-26 Units ity of (LANTUS 00:00: 00:00 under the [facility] SOLOSTAR 00 :00 skin 2 Medical U-100 (two) Branch INSULIN) times 100 unit/mL daily. (3 mL) injection atorvastati Yes [id number] 40mg Take 1 Univers n 40 mg 1-18 tablet by ity of tablet 00:00: mouth [place] 00 daily. Medical Branch atorvastati Yes [id number] 40mg Take 1 Univers n 40 mg 1-18 tablet by ity of tablet 00:00: mouth [place] 00 daily. Medical Branch atorvastati 2022- No [id number] 40mg Take 1 Univers n 40 mg 1-18 -29 tablet by ity of tablet 00:00: 22:39 mouth [place] 00 :15 daily. Medical Branch HYDROcodone Yes 1{tbl} Q6H Take 1 Me thodi -acetaminop 1-[address] hen (NORCO) 00:00: mouth Hospi ta 7.5-325 mg 00 every 6 l per tablet (six) hours as needed. HYDROcodone Yes Univer s -acetaminop 1-06 ity of hen 7.5-325 00:00: [place] mg per 00 Medical tablet Branch HYDROcodone Yes Univer s -acetaminop 1-06 ity of hen 7.5-325 00:00: [place] mg per 00 Medical tablet Branch gabapentin 2020-10 Yes 300mg Take 300 [facility] (NEURONTIN) 1-16 mg by College 300 MG 00:00: mouth. of capsule 00 Medicin e gabapentin 2020-10 Yes [id number] 300mg Take 1 Univers 300 mg 1-16 capsule by ity of capsule 00:00: mouth at [place] 00 bedtime. Medical Branch gabapentin 2020-10 Yes [id number] 300mg Take 1 Univers 300 mg 1-16 capsule by ity of capsule 00:00: mouth at [place] 00 bedtime. Medical Branch gabapentin 2020-10 Yes [id number] 300mg Take 1 Univers 300 mg 1-16 capsule by ity of capsule 00:00: mouth at [place] 00 bedtime. Medical Branch [facility] 2020-10 Yes [id number] Apply to Univers ne 0.5 % 0-29 9107 area(s) 2 ity of ointment 00:00: (two) [place] 00 times Medical daily. Branch [facility] 2020-10 Yes [id number] Apply to Univers ne 0.5 % 0-29 9107 area(s) 2 ity of ointment 00:00: (two) [place] 00 times Medical daily. Branch [facility] 2020-10 Yes [id number] Apply to Univers ne 0.5 % 0-29 9107 area(s) 2 ity of ointment 00:00: (two) [place] 00 times Medical daily. Branch lancets-blo 2020-10 Yes [id number] 1{each} 1 Each 2 Univers od glucose 0-15 (two) ity of strips 30 00:00: times [place] gauge Cmpk 00 daily. DX Medi hiram E11.9 Branch (Brand upon insurance approval) UNIFINE 2020-10 Yes USE Univers PENTIPS 0-15 DIRECTED ity of PLUS 33 00:00: FOR TWICE [place] gauge x 00 A DAY Medical " Ndle INSULIN Branch ADMINISTRA TION. lancets-blo 2020-10 Yes [id number] 1{each} 1 Each 2 Univers od glucose 0-15 (two) ity of strips 30 00:00: times [place] gauge Cmpk 00 daily. DX Medi hiram E11.9 Branch (Brand upon insurance approval) UNIFINE 2020-10 Yes USE Univers PENTIPS 0-15 DIRECTED ity of PLUS 33 00:00: FOR TWICE [place] gauge x 00 A DAY Medical " Ndle INSULIN Branch ADMINISTRA TION. lancets-blo 2020-10 Yes [id number] 1{each} 1 Each 2 Univers od glucose [...] Yes 1{capsu Take 1 U nivers -blkbor-om 06-10 le} capsule by ity of 3,6,9 #6 17:15: mouth Elisabeth (FISH, FLAX 17 daily. Medica l & BORAGE 1,040 Branch OIL, PRIM,) mg/575mg 400-400-200 EPA/425mg mg Cap DHA multivit-ir Yes 1{tbl} Take 1 Tab Univers on-FA with 06-10 by mouth ity o f Ca&mins 17:15: daily. Elisabeth (THERA-TABS 17 Medical M) 27 mg Branch iron-400 mcg Tab omeg3/epa/d Yes Take by Uni vers mane/fish -05 mouth. ity of oil/flax/E 17:15: [place] (THERA 17 Medical TEARS Branch NUTRITION ORAL) CALCIUM-MAG Yes Take by Uni vers NESIUM-ZINC -05 mouth. ity of ORAL 17:15: Also with [place] 17 vitamin d Medical Branch docosahexan Yes 1200mg Take 1,200 Univers oic 9-05 mg by ity of acid/epa 17:15: mouth. [place] (FISH OIL 17 360mg Medical ORAL) omega 3 Branch fsh-flx-prm 2020-0 Yes 1{capsu Take 1 U nivers -blkbor-om 9-05 le} capsule by ity of 3,6,9 #6 17:15: mouth [place] (FISH, FLAX 17 daily. Medica l & BORAGE 1,040 Branch OIL, PRIM,) mg/575mg 400-400-200 EPA/425mg mg Cap DHA multivit-ir 2020-0 Yes 1{tbl} Take 1 Tab Univers on-FA with 9-05 by mouth ity o f Ca&mins 17:15: daily. [place] (THERA-TABS 17 Medical M) 27 mg Branch iron-400 mcg Tab omeg3/epa/d 2020- Yes Take by Uni vers mane/fish 9-05 mouth. ity of oil/flax/E 17:15: [place] (THERA 17 Medical TEARS Branch NUTRITION ORAL) CALCIUM-MAG Yes Take by Uni vers NESIUM-ZINC -05 mouth. ity of ORAL 17:15: Also with [place] 17 vitamin d Medical Branch docosahexan Yes 1200mg Take 1,200 Univers oic 9-05 mg by ity of acid/epa 17:15: mouth. [place] (FISH OIL 17 360mg Medical ORAL) omega 3 Branch fsh-flx-prm 2020-0 Yes 1{capsu Take 1 U nivers -blkbor-om 9-05 le} capsule by ity of 3,6,9 #6 17:15: mouth [place] (FISH, FLAX 17 daily. Medica l & BORAGE 1,040 Branch OIL, PRIM,) mg/575mg 400-400-200 EPA/425mg mg Cap DHA multivit-ir 2020-0 Yes 1{tbl} Take 1 Tab Univers on-FA with 9-05 by mouth ity o f Ca&mins 17:15: daily. [place] (THERA-TABS 17 Medical M) 27 mg Branch iron-400 mcg Tab omeg3/epa/d 2020- Yes Take by Uni vers mane/fish 9-05 mouth. ity of oil/flax/E 17:15: [place] (THERA 17 Medical TEARS Branch NUTRITION ORAL) CALCIUM-MAG Yes Take by Uni vers NESIUM-ZINC 9-05 mouth. ity of ORAL 17:15: Also with [place] 17 vitamin d Medical Branch docosahexan 0 Yes 1200mg Take 1,200 Univers oic 9-05 mg by ity of acid/epa 17:15: mouth. [place] (FISH OIL 17 360mg Medical ORAL) omega 3 Branch bacitracin 0 Yes [id number] Apply to Univers 500 9-05 affected ity of unit/gram 00:00: area(s) 4 [place] as ointment 00 (four) Medical times Branch daily. simethicone 0 Yes [id number] 80mg Take 1 Univers 80 mg 9-05 tablet by ity of chewable 00:00: mouth [place] tablet 00 after Medical meals and Branch at bedtime. bacitracin 0 Yes [id number] Apply to Univers 500 9-05 affected ity of unit/gram 00:00: area(s) 4 [place] as ointment 00 (four) Medical times Branch daily. simethicone 0 Yes [id number] 80mg Take 1 Univers 80 mg 9-05 tablet by ity of chewable 00:00: mouth [place] tablet 00 after Medical meals and Branch at bedtime. bacitracin 2020-0 Yes [id number] Apply to Univers 500 9-05 affected ity of unit/gram 00:00: area(s) 4 Alber as ointment 00 (four) Medical times Branch daily. simethicone 2020-0 Yes [id number] 80mg Take 1 Univers 80 mg 9-05 tablet by ity of chewable 00:00: mouth [place] tablet 00 after Medical meals and Branch at bedtime. zinc 2020-0 Yes [id number] 220mg Take 1 Univer s sulfate 50 8-09 capsule by ity of mg zinc 00:00: mouth [place] (220 mg) 00 daily. Medical capsule Branch thiamine 2020-0 Yes [id number] 100mg Take 1 Un sherrell 100 mg 8-09 tablet by ity of tablet 00:00: mouth [place] 00 daily. Medical Branch zinc 2020-0 Yes [id number] 220mg Take 1 Univer s sulfate 50 8-09 capsule by ity of mg zinc 00:00: mouth [place] (220 mg) 00 daily. Medical capsule Branch thiamine 2020-0 Yes [id number] 100mg Take 1 Un sherrell 100 mg 8-09 tablet by ity of tablet 00:00: mouth [place] 00 daily. Medical Branch zinc 2020-0 Yes [id number] 220mg Take 1 Univer s sulfate 50 8-09 capsule by ity of mg zinc 00:00: mouth [place] (220 mg) 00 daily. Medical capsule Branch thiamine 2020-0 Yes [id number] 100mg Take 1 Un hserrell 100 mg 8-09 tablet by ity of tablet 00:00: mouth [place] 00 daily. Medical Branch ascorbic 2020-0 Yes 1000mg QD Take 1 Metho di acid, 8-[address] vitamin C, 00:00: (1,000 mg Ho spita (VITAMIN C) 00 total) by l 1000 MG mouth tablet daily. cholecalcif 0 Yes 2000U QD Take 2 Met hodi carmelina, 8-[address] vitamin D3, 00:00: (2,000 [facility],000 unit 00 Units l tablet total) by mouth daily. vitamin C 2020-0 Yes [id number] 1000mg Take 1 Univers with kwame 8-08 tablet by ity o f hips 1,000 00:00: mouth [place] mg tablet 00 daily. Medical Branch cholecalcif 2020-0 Yes [id number] 2000U Take 2 Univers carmelina, 8-08 tablets by ity of vitamin D3, 00:00: mouth [place] 25 mcg 00 daily. Medical (1,000 Branch unit) tablet vitamin C 2020-0 Yes [id number] 1000mg Take 1 Univers with kwame 8-08 tablet by ity o f hips 1,000 00:00: mouth [place] mg tablet 00 daily. Medical Branch cholecalcif 2020-0 Yes [id number] 2000U Take 2 Univers carmelina, 8-08 tablets by ity of vitamin D3, 00:00: mouth [place] 25 mcg 00 daily. Medical (1,000 Branch unit) tablet vitamin C 2020-0 Yes [id number] 1000mg Take 1 Univers with kwame 8-08 tablet by ity o f hips 1,000 00:00: mouth [place] mg tablet 00 daily. Medical Branch cholecalcif 2020-0 Yes [id number] 2000U Take 2 Univers carmelina, 8-08 tablets by ity of vitamin D3, 00:00: mouth [place] 25 mcg 00 daily. Medical (1,000 Branch unit) tablet blood sugar 2021-0 Yes [id number] USE TO Univers diagnostic 7-23 TEST BLOOD ity of (ONETOUCH 00:00: SUGAR [place] VERIO TEST 00 TWICE Medical STRIPS) DAILY; Branch strip ICD-10 E11.8 blood sugar Yes [id number] USE TO Univers diagnostic 7-23 TEST BLOOD ity of (ONETOUCH 00:00: SUGAR [place] VERIO TEST 00 TWICE Medical STRIPS) DAILY; Branch strip ICD-10 E11.8 blood sugar Yes [id number] USE TO [facility] diagnostic 7-23 TEST BLOOD ity of (ONETOUCH 00:00: SUGAR [place] VERIO TEST 00 TWICE Medical STRIPS) DAILY; Branch strip ICD-10 E11.8 metoprolol Yes [id number] 50mg Take 1 U nivers succinate 6-24 tablet by ity o f XL 50 mg 24 00:00: mouth [place] hr tablet 00 daily. Medical Branch metoprolol Yes [id number] 50mg Take 1 U nivers succinate 6-24 tablet by ity o f XL 50 mg 24 00:00: mouth [place] hr tablet 00 daily. Medical Branch metoprolol Yes [id number] 50mg Take 1 U nivers succinate 6-24 tablet by ity o f XL 50 mg 24 00:00: mouth [place] hr tablet 00 daily. Medical Branch losartan Yes Take by Method i (COZAAR) 25 6-[address] MG tablet 00:00: Hospita 00 l LOSARTAN 25 Yes [id number] 25mg TAKE 1 Univers mg tablet 6-21 TABLET BY ity o f 00:00: MOUTH [place] 00 DAILY. Medical Branch LOSARTAN 25 Yes [id number] 25mg TAKE 1 Univers mg tablet 6-21 TABLET BY ity o f 00:00: MOUTH [place] 00 DAILY. Medical Branch LOSARTAN 25 Yes [id number] 25mg TAKE 1 Univers mg tablet 6-21 TABLET BY ity o f 00:00: MOUTH [place] 00 DAILY. Medical Branch furosemide Yes 40mg QD Take 1 Metho di (LASIX) 40 4-14 tablet (40 st mg tablet 00:00: mg total) Hos imlagro 00 by mouth l daily. FUROSEMIDE Yes [id number] TAKE 1 Univers 40 mg 4-14 TABLET BY ity of tablet 00:00: MOUTH [place] 00 EVERY DAY Medical Branch FUROSEMIDE 2020-0 Yes [id number] TAKE 1 Univers 40 mg 4-14 TABLET BY ity of tablet 00:00: MOUTH [place] EVERY DAY Medical Branch FUROSEMIDE 0 Yes [id number] TAKE 1 Univers 40 mg 4-14 TABLET BY ity of tablet 00:00: MOUTH [place] EVERY DAY Medical Branch SPIRIVA Yes [id number] INHALE 1 Un sherrell RESPIMAT 3-04 PUFF BY ity of 2.5 00:00: MOUTH [place] mcg/actuati 00 DAILY. Medica l on Mist Branch SPIRIVA Yes [id number] INHALE 1 Un sherrell RESPIMAT 3-04 PUFF BY ity of 2.5 00:00: MOUTH [place] mcg/actuati 00 DAILY. Medica l on Mist Branch SPIRIVA Yes [id number] INHALE 1 Un sherrell RESPIMAT 3-04 PUFF BY ity of 2.5 00:00: MOUTH [place] mcg/actuati 00 DAILY. Medica l on Mist Branch ONETOUCH 2019-10 Yes USE TO Univers DELICA PLUS 2-18 TEST BLOOD it y of LANCET 33 00:00: SUGARS [facility] Mis 00 THREE Medical TIMES Branch DAILY ONETOUCH 2019-10 Yes USE TO Univers DELICA PLUS 2-18 TEST BLOOD it y of LANCET 33 00:00: SUGARS [facility] Mis 00 THREE Medical TIMES Branch DAILY ONETOUCH 2019-10 Yes USE TO Univers DELICA PLUS 2-18 TEST BLOOD it y of LANCET 33 00:00: SUGARS [facility] [facility] 00 THREE Medical TIMES Branch DAILY Nebulizer & 2020-0 Yes [id number] Use as Univers Compressor 7-15 directed; ity of For Neb 00:00: ICD-10 [place] Allison 00 CODE J44.9 Medical Branch Nebulizer & 2019-0 Yes [id number] Use as Univers Compressor 7-15 directed; ity of For Neb 00:00: ICD-10 [place] Allison 00 CODE J44.9 Medical Branch Nebulizer & 2019-0 Yes [id number] Use as Univers Compressor 7-15 directed; ity of For Neb 00:00: ICD-10 [place] Allison 00 CODE J44.9 Medical Branch albuterol 2019-0 Yes .63mg Inhale 3 Met hodi (ACCUNEB) 5-12 mL (0.63 st 0.63 mg/3 00:00: mg total). Ho spita mL 00 l nebulizer solution albuterol 2019-0 Yes [id number] .63mg Inhale 3 Univers 0.63 mg/3 5-12 mL every 6 ity of mL 00:00: (six) [place] nebulizer 00 hours as Medica l solution needed for Branc h Wheezing or Shortness of Breath. montelukast 2019-0 Yes [id number] 10mg Take 1 Univers 10 mg 5-12 tablet by ity of tablet 00:00: mouth [place] 00 every Medical evening. Branch albuterol 0 Yes [id number] .63mg Inhale 3 Univers 0.63 mg/3 5-12 mL every 6 ity of mL 00:00: (six) [place] nebulizer 00 hours as Medica l solution needed for Branc h Wheezing or Shortness of Breath. montelukast Yes [id number] 10mg Take 1 Univers 10 mg 5-12 tablet by ity of tablet 00:00: mouth [place] 00 every Medical evening. Branch albuterol 0 Yes [id number] .63mg Inhale 3 Univers 0.63 mg/3 5-12 mL every 6 ity of mL 00:00: (six) [place] nebulizer 00 hours as Medica l solution needed for Branc h Wheezing or Shortness of Breath. montelukast Yes [id number] 10mg Take 1 Univers 10 mg 5-12 tablet by ity of tablet 00:00: mouth [place] 00 every Medical evening. Branch potassium 2021- No [id number] 10meq Take 1 Univers chloride 10 5-12 02-04 tablet by it y of mEq CR 00:00: 00:00 mouth [place] tablet 00 :00 daily. Medical Branch Lancets 2019- Yes [id number] Check Unive rs Misc 2-13 sugars up ity of 00:00: to 3 times [place] 00 a day. Dx Medical Code Branch E11.9. Brand per insurance. aspirin 325 2018- Yes [id number] 325mg Take 1 Univers mg tablet 2-13 tablet by ity o f 00:00: mouth [place] 00 daily. Medical Branch butalbital- 2019- Yes [id number] 1{tbl} Take 1 Univers acetaminoph 2-13 tablet by ity of en-caff 00:00: mouth [place] 50-325-40 00 every 6 Medical mg tablet (six) Branch hours as needed (Migraine) . Lancets 2018-10 Yes [id number] Check Unive rs Misc 2-13 sugars up ity of 00:00: to 3 times [place] 00 a day. Dx Medical Code Branch E11.9. Brand per insurance. aspirin 325 2018- Yes [id number] 325mg Take 1 Univers mg tablet 2-13 tablet by ity o f 00:00: mouth [place] 00 daily. Medical Branch butalbital- 2018-10 Yes [id number] 1{tbl} Take 1 Univers acetaminoph 2-13 tablet by ity of en-caff 00:00: mouth [place] 50-325-40 00 every 6 Medical mg tablet (six) Branch hours as needed (Migraine) . Lancets 2018-10 Yes [id number] Check Univ ers Misc 2-13 sugars up ity of 00:00: to 3 times [place] 00 a day. Dx Medical Code Branch E11.9. Brand per insurance. aspirin 325 2018-10 Yes [id number] 325mg Take 1 Univers mg tablet 2-13 tablet by ity o f 00:00: mouth [place] 00 daily. Medical Branch butalbital- 2018-10 Yes [id number] 1{tbl} Take 1 Univers acetaminoph 2-13 tablet [...] gauge Misc 00:00: SU[place]AR [place] TIMES Medical DAILY Branch Blood-Gluco 2016-10 Yes [id number] Use BID, Univers se Meter 0-03 DX E11.9 ity of Kit 00:00: ( [facility] Medical insurance Branch approval) Blood-Gluco 2016-10 Yes [id number] Use BID, Univers se Meter 0-03 DX E11.9 ity of Kit 00:00: (Brand upon Medical insurance Branch approval) Blood-Gluco 2017-1 Yes [id number] Use BID, Univers se Meter 0-03 DX E11.9 ity of Kit 00:00: ([address] approval) Immunizations Ordered Filled Immunization Date Status Comments [facility] e Immunization Name Name Pneumococcal 2018-08-22 Completed [facility] o f Polysaccharide, 00:00:00 [place] Med ical PPSV23 (PNEUMOVAX) Branch Pneumococcal 2018-08-22 Completed [facility] o f Polysaccharide, 00:00:00 [place] Med ical PPSV23 (PNEUMOVAX) Branch Pneumococcal 2018-08-22 Completed [facility] o f Polysaccharide, 00:00:00 [place] Med ical PPSV23 (PNEUMOVAX) Branch Vital Signs Vital Name Observation Time Observation Value Comments Source WEIGHT 2022-06-18 10:35:00 92.08 kg HEIGHT 2022-06-18 10:35:00 162.6 cm WEIGHT 2022-06-18 10:35:00 92.08 kg HEIGHT 2022-06-18 10:35:00 162.6 cm WEIGHT 2022-06-18 10:35:00 92.08 kg HEIGHT 2022-06-18 10:35:00 162.6 cm Systolic blood 2022-05-29 15:44:00 127 mm[Hg] [facility] pressure Medicine Diastolic blood 2022-05-29 15:44:00 93 mm[Hg] [facility] Medicine Heart rate 2022-05-29 15:44:00 92 /min [facility] Body height 2022-05-29 15:44:00 162.6 cm [facility] Body weight 2022-05-29 15:44:00 92.171 kg [facility] BMI 2022-05-29 15:44:00 34.88 kg/m2 [facility] Systolic blood 2023-02-13 18:05:00 137 mm[Hg] [facility] pressure Diastolic blood 2023-02-13 18:05:00 87 mm[Hg] Metho dist [facility] pressure Heart rate 2023-02-13 18:05:00 91 /min [facility] Body temperature 2023-02-13 18:05:00 36.44 [facility] 2023-02-13 18:05:00 19 /min [facility] Body height 2023-02-13 18:05:00 165.1 cm [facility] Body weight 2023-02-13 18:05:00 81.647 kg [facility] BMI 2023-02-13 18:05:00 29.95 kg/m2 [facility] Oxygen saturation in 2023-02-13 18:05:00 99 /min [facility] Arterial blood by Pulse oximetry Systolic blood 2022-06-18 18:22:00 123 mm[Hg] [facility] Diastolic blood 2022-06-18 18:22:00 53 mm[Hg] [facility] Heart rate 2022-06-18 18:22:00 79 /min [facility] Respiratory rate 2022-06-18 18:22:00 16 /min [facility] Oxygen saturation in 2022-06-18 16:44:00 98 /min [facility] Arterial blood by Medical Ce nter Pulse oximetry Body temperature 2022-06-18 10:35:00 35.06 Gilma [facility] Body height 2022-06-18 10:35:00 162.6 cm [facility] Body weight 2022-06-18 10:35:00 92.08 kg [facility] BMI 2022-06-18 10:35:00 34.84 kg/m2 [facility] Procedures Procedure Date / Time Performing Clinician Source Performed CT ABDOMEN PELVIS WO 2023-02-28 17:57:00 Nhan Shaw [facility] POCT-GLUCOSE METER 2022-06-18 15:55:00 Priscila Guillory [facility] ANGIOPLASTY, ARTERY, 2022-06-18 12:16:00 Priscila Guillory [facility] LOWER EXTREMITY Center CBC W/PLT COUNT & AUTO 2022-06-18 11:51:00 ValentinaTre [facility] DIFFERENTIAL [place] PROTHROMBIN TIME/INR 2022-06-18 11:51:00 ValentinaTre [facility] APTT 2022-06-18 11:51:00 [facility]ABOLIC PANEL 2022-06-18 11:51:00 [facility] TYPE AND SCREEN, 2022-06-18 11:51:00 [facility] W/PLT COUNT & AUTO 2022-06-18 11:51:00 Valentina [facility] DIFFERENTIAL Center POCT-GLUCOSE METER 2022-06-18 11:18:00 [facility] ECG 12-LEAD 2022-06-18 11:09:38 [facility] CARDIAC CATH REPORT - 2022-06-18 00:00:00 Provider [place] [facility] SCAN Scanning Center COMP. METABOLIC PANEL 2021-11-07 16:33:00 Sumna Underwood [facility] ([id number]) [facility] CBC WITHOUT DIFF 2021-11-07 16:33:[address] [facility] [id number] 2020-05-27 00:00:00 [facility] [id number] 2020-05-27 00:00:00 [facility] [id number] 2020-05-27 00:00:00 [facility] [id number] 2020-05-27 00:00:00 [facility] [id number] 2020-05-27 00:00:00 [facility] [id number] 2020-05-27 00:00:00 [facility] Plan of Care Planned Activity Planned Date Details Comments Source Future Scheduled 2023-06-[address] [...] Cessation Counseling and Screening (12+)] Future Scheduled 2023-06-[address] [facility] Test 00:00:00 (Season Ended) Medical Cente r [code = Influenza Vaccine (Season Ended)] Future Scheduled 2023-03-20 COVID-[address] Test 16:51:00 (#1) [code = Hospital COVID-19 VACCINE (#1)] Future Scheduled 2023-03-20 Hepatitis C [facility]orship Test 16:51:00 screening Hospital (procedure) [code = 273902228] Future Scheduled 2023-03-20 SHINGLES VACCINES Method ist Test 16:51:00 (1 of 2) [code = Hospital SHINGLES VACCINES (1 of 2)] Future Scheduled 2023-03-20 HEPATITIS B [facility] Test 16:51:00 VACCINES (1 of 3 - Hospital Risk 3-dose series) [code = HEPATITIS B VACCINES (1 of 3 - Risk 3-dose series)] Future Scheduled 2023-03-20 65+ PNEUMOCOCCAL [facility] Test 16:51:00 VACCINE (3 - PCV) Hospital [code = 65+ PNEUMOCOCCAL VACCINE (3 - PCV)] Future Scheduled 2023-03-20 INFLUENZA VACCINE Method ist Test 16:51:00 [code = INFLUENZA Hospital VACCINE] Future Scheduled 2022-10-[address] [facility] Test 00:[facility]:00 SCREENING (12+) Medical Cent er [code = DEPRESSION SCREENING (12+)] Future Scheduled 2022-10-[address] [facility] Test 00:00:00 SCREENING [code = Medical Ce nter FALLS RISK SCREENING] Future Scheduled 2022-10-[address] [facility] Test 00:00:00 SCREENING (12+) Medical Cent er [code = DEPRESSION SCREENING (12+)] Future Scheduled 2022-10-[address] [facility] Test 00:00:00 SCREENING [code = Medical Ce nter FALLS RISK SCREENING] Future Scheduled 2022-10-[address] [facility] Test 00:00:00 SCREENING (12+) Medical Cent er [code = DEPRESSION SCREENING (12+)] Future Scheduled 2022-10-[address] [facility] Test 00:00:00 SCREENING [code = Medical Ce nter FALLS RISK SCREENING] Future Scheduled 2022-10-[address] [facility] Test 00:00:00 SCREENING (12+) Medical Cent er [code = DEPRESSION SCREENING (12+)] Future Scheduled 2022-10-[address] [facility] Test 00:00:00 SCREENING [code = Medical Ce nter FALLS RISK SCREENING] Future Scheduled 2022-10-[address] [facility] Test 00:00:00 SCREENING (12+) Medical Cent er [code = DEPRESSION SCREENING (12+)] Future Scheduled 2022-10-[address] [facility] Test 00:00:00 SCREENING [code = Medical Ce nter FALLS RISK SCREENING] Future Scheduled 2022-06-06 [...] VACCINE (#1)] Future Scheduled 2022-05-30 COVID-19 Vaccine [facility] Test 10:10:26 (#1) [code = of Medicine COVID-19 Vaccine (#1)] Future Scheduled 2022-05-30 TETANUS SHOT [facility] Deena ege Test 10:10:26 (ADULT) [code = of Medicine TETANUS SHOT (ADULT)] Future Scheduled 2022-05-30 BMI FOLLOW UP PLAN [facility] r College Test 10:10:26 [code = BMI FOLLOW of Medici ne UP PLAN] Future Scheduled 2022-05-30 Hepatitis C [facility] Deena ege Test 10:10:26 screening of Medicine (procedure) [code = 317180759] Future Scheduled 2022-05-30 ZOSTER VACCINE (1 [facility] Test 10:10:26 of 2) [code = of Medicine ZOSTER VACCINE (1 of 2)] Future Scheduled 2022-05-30 FALL SCREEN [code = [employer] Test 10:10:26 FALL SCREEN] of Medicine Future Scheduled 2022-05-30 Screening for [facility] Col [facility]ge Test 10:10:26 osteoporosis of Medicine (procedure) [code = 247644806] Future Scheduled 2022-05-30 Pneumococcal 65+ (1 [employer] Test 10:10:26 - PCV) [code = of Medicine Pneumococcal 65+ (1 - PCV)] Future Scheduled 2022-05-30 MEDICARE IPPE [facility] Col lege Test 10:10:26 (WELCOME TO of Medicine MEDICARE) [code = MEDICARE IPPE (WELCOME TO MEDICARE)] Future Scheduled 2022-05-30 FLU VACCINE > 6 [facility] C [facility] Test 10:10:26 MONTHS [code = FLU of Medici ne VACCINE > 6 MONTHS] Future Scheduled 2022-05-29 US ARTERIAL LEGS 1 Occurrences [facility] Test 11:10:51 BILATERAL [code = starting of Medicin e 67786-8] 05/29/2022 until 05/29/2023 Future Scheduled 2021-10-[address] [...] Ce nter FALLS RISK SCREENING] Future Scheduled 2019-08-[address] [...] [facility] Test 00:[facility] DXA SCAN] [facility] Future Scheduled 1944 DXA SCAN [code = [facility] Test 00:00:00 DXA SCAN] [facility] Future Scheduled 1944 DXA SCAN [code = [facility] Test 00:00:00 DXA SCAN] [facility] Future Scheduled 1944 DXA SCAN [code = [facility] Test 00:00:00 DXA SCAN] [facility] Future Scheduled 1944 DXA SCAN [code = [facility] Test 00:00:00 DXA SCAN] [facility] Future Scheduled 1944 DXA SCAN [code = [facility] Test 00:00:00 DXA SCAN] [facility] Future Scheduled 1944 DXA SCAN [code = [facility] Test 00:00:00 DXA SCAN] [facility] Future Scheduled 1944 DXA SCAN [code = KELLEN Decker Test 00:00:00 DXA SCAN] Medical Center Encounters Start End Encounter Admission Attending Care Care Encounter Source Date/Time Date/Time Type Type Clinicians Facility Department ID 2023-01-15 Outpatient Quintanilla, STLMLC STLMLC [id number] Common 10:35:01 Shawn [id number] [facility] 2022-12-19 Outpatient Quintanilla, STLMLC STLMLC [id number] Common 14:02:01 Shawn [id number] [facility] 2022-10-29 Outpatient Quintanilla, STLMLC STLMLC [id number] Common 10:35:02 Shawn [id number] [facility] 2022-09-24 Outpatient Quintanilla, STLMLC STLMLC [id number] Common 14:24:02 Shawn [facility] 2022-09-11 Outpatient Quintanilla, STLMLC STLMLC [id number] Common 10:49:04 Shawn [id number] [facility] 2022-09-06 Outpatient Quintanilla, STLMLC STLMLC [id number] Common 11:05:05 Shawn [id number] [facility] 2022-09-05 Outpatient Quintanilla, STLMLC STLMLC [id number] Common 10:58:03 Shawn [facility] 2022-08-12 Outpatient Quintanilla, STLMLC STLMLC [id number] Common 08:49:02 Shawn [id number] [facility] 2022-07-19 Outpatient Quintanilla, STLMLC STLMLC [id number] Common 09:59:03 Shawn [id number] [facility] 2022-06-13 Outpatient Quintanilla, STLMLC STLMLC [id number] Common 14:20:01 Shawn [facility] 2022-05-30 Outpatient EL GUILLORY, [facility] [id number] SLE 14:09:30 JAYER 2022-05-30 Outpatient Quintanilla, STLMLC STLMLC [id number] Common 10:41:05 Shawn [facility] 2021-08-06 Emergency [facility] [id number] Univers 18:30:44 ity of [facility] 2021-08-06 Emergency [facility] [id number] Univers 13:25:07 ity of [facility] 2021-08-02 Emergency [facility] [id number] [facility] 2023-02-28 Hospital Niles Chris 1.2.840.1 [id number] Methodi 11:57:00 23:59:00 Encounter Pauline 97315.1.[address] 3.430.2.7 Hospit a .3.154374 l .8 2023-02-28 2023-02-28 Outpatient NILESCHRIS Michel [facility] [id number] [place] 00:00:00 00:00:[address] 2023-02-28 2023-02-28 Travel 1.2.840.1 [id number] Methodi 00:00:00 00:00:[address] 3.430.2.7 0.2.7.3.698 Ho spita .3.434763 084.8 l .8 2023-02-13 2023-02-13 Office NilesChris 1.2.840.5 [id number] Methodi 13:00:00 13:44:16 Visit Pauline 81132.1.[address] 3.430.2.7 Hospit a .3.447961 l .8 2023-02-13 2023-02-13 Outpatient NILESCHRIS Michel [facility] [id number] [place] 00:00:00 00:00:[address] 2023-02-13 2023-02-13 Travel 1.2.840.1 [id number] Methodi 00:00:00 00:00:[address] 3.430.2.7 0.2.7.3.698 Ho spita .3.034304 084.8 l .8 2022-11-01 2022-11-01 [facility] 1.2.840.114 [id number] Univers 00:00:00 00:00:00 Wondiful A HEALTH 350.1.13.10 jamar [facility] 4.2.7.2.686 Alber as KHURRAM?BLEA [id number] [address] OFFICE BUILDING 2022-06-18 2022-06-18 Outpatient [facility] [id number] [facility] 00:00:00 23:59:00 Nicholas schmitt of Medicin e 2022-06-18 2022-06-18 [facility] [id number] 10:00:00 18:37:00 Encounter [facility] 2022-06-18 2022-06-18 Outpatient VERONICA GUILLORY [facility] [id number] [facility] 10:00:00 18:37:00 [facility] 2022-06-18 2022-06-18 [facility] [id number] 10:00:00 18:37:00 Encounter [facility] 2022-06-18 2022-06-18 [facility] [id number] 11:51:00 15:12:00 [facility] 2022-06-18 2022-06-18 [facility] [id number] 11:51:00 15:12:00 [facility] 2022-05-29 2022-05-29 Office [facility] 1.2.840.114 [id number] [facility] 10:33:50 11:17:23 Visit PRISCILA AMBULATOR 350.1.13.21 College Y 0.2.7.2.686 [id number] [facility] bree 825 e 2022-03-08 2022-03-08 Outpatient Justina WHITEHEAD [facility] [id number] Univers 11:00:00 11:00:00 DIANE roldan [facility] 2022-01-28 2022-01-28 Stefani Underwood [facility] 1.2.840.114 [id number] Univers 00:00:00 00:00:00 Wondiful A HEALTH 350.1.13.10 ity of [place] 4.2.7.2.686 Alber as KHURRAM?BLEA [id number] [facility] 044 [facility] OFFICE [facility] 2021-12-25 2021-12-25 Outpatient Justina WHITEHEAD [facility] [id number] Univers 11:15:00 11:15:00 DIANE ity of [facility] 2021-11-09 2021-11-09 [facility] 1.2.840.114 [id number] Univers 00:00:00 00:00:00 Management Wondiful A HEALTH 350.1.13.10 ity of [place] 4.2.7.2.686 Alber as KHURRAM?BLEA [id number] [facility] BUSTOS 044 [facility] OFFICE [facility] 2021-11-07 2021-11-07 Childhood Development Teacher Lab, Ang - Db [facility] 1.2.840.1 [id number] Univers 10:30:00 11:08:15 Visit Suman Underwood HEALTH 350.1.13.1 0 ity of [place] 4.2.7.2.686 Alber as KHURRAM?BLEA [id number] Mi yesi MOY 353 [facility] OFFICE [facility] 2021-11-07 2021-11-07 Childhood Development Teacher Lab, Ang - Db [facility] FACILITY 1.2.840.1 14 [id number] Univers 10:30:00 10:45:00 Visit Suman Underwood HEALTH 350.1.13.1 0 ity of [place] 4.2.7.2.686 Alber as KHURRAM?BLEA [phone] [facility] 353 [facility] OFFICE [facility] 2021-11-07 2021-11-07 Outpatient Justina UNDERWOOD [facility] [id number] Univers 10:30:00 10:30:00 WONDIFUL ity o f [facility] 2021-11-07 2021-11-07 Outpatient Justina UNDERWOOD [facility] [id number] Univers 10:30:00 10:30:00 WONDIFUL ity o f [facility] 2021-11-072021-11-07 Office [facility] 1.2.840.114 [id number] Univers 10:00:00 10:26:57 Visit Wondiful A HEALTH 350.1.13.10 ity of [place] 4.2.7.2.686 Alber as KHURRAM?BLEA [phone] [address] OFFICE [facility] 2021-10-23 2021-10-23 [facility] 1.2.840.114 [id number] Univers 00:00:00 00:00:00 Wondiful A HEALTH 350.1.13.10 ity of [place] 4.2.7.2.686 Alber as KHURRAM?BLEA [phone] [address] OFFICE [facility] 2021-09-03 2021-09-03 [facility] 1.2.840.114 [id number] Univers 00:00:00 00:00:00 Wondiful A HEALTH 350.1.13.10 ity of [place] 4.2.7.2.686 Alber as KHURRAM?BLEA [phone] [address] OFFICE [facility] 2021-08-28 2021-08-28 [facility] [id number] Univers 10:30:00 10:30:00 WONDIFUL ity o f [facility] 2021-08-28 2021-08-28 Out[facility] [id number] Univers 10:30:00 10:30:00 WONDIFUL ity o f [facility] 2021-08-21 2021-08-21 Ref[facility] 1.2.840.114 [id number] Univers 00:00:00 00:00:00 Peter ILANA 350.1.13.10 i ty of [place].2.[place] [phone] [address] 2021-08-21 2021-08-21 [facility] 1.2.840.114 [id number] Univers 00:00:00 00:00:00 Wondiful A HEALTH 350.1.13.10 ity of [place] 4.2.7.2.686 Alber as KHURRAM?BLEA [phone] Mi yesi MOY 044 [place] MEDICAL OFFICE BUILDING 2021-08-21 2021-08-21 Telephone [facility] 1.2.840.114 [id number] Univers 00:00:00 00:00:00 Wondiful A HEALTH 350.1.13.10 ity of [place] 4.2.7.2.686 Alber as KHURRAM?BLEA [phone] Mi yesi MOY 044 [place] MEDICAL OFFICE [facility] 2021-08-16 2021-08-16 Telephone [facility] 1.2.840.114 [id number] Univers 00:00:00 00:00:00 Wondiful A HEALTH 350.1.13.10 ity of [place] 4.2.7.2.686 Alber as KHURRAM?BLEA [phone] Mi yesi MOY 044 [place] MEDICAL OFFICE [facility] 2021-08-11 2021-08-11 Case [facility] 1.2.840.114 [id number] Univers 00:00:00 00:00:00 Management Wondiful A HEALTH 350.1.13.10 ity of [place] 4.2.7.2.686 Alber as KHURRAM?BLEA [phone] Mi yesi MOY 044 [place] MEDICAL OFFICE [facility] 2021-08-02 2021-08-02 [facility] 1.2.534.542 [id number] Univers 11:00:00 23:59:00 Encounter Wondiful A HEALTH 350.1.13.10 ity of [place] 4.2.7.2.686 Alber as KHURRAM?BLEA [phone] Mi yesi MOY 809 [place] MEDICAL OFFICE [facility] 2021-08-02 2021-08-02 Childhood Development Teacher Lab, Ang - Db [facility] 1.2.840.1 14 [id number] Univers 11:49:21 12:32:41 Visit Suman Underwood A HEALTH 350.1.13.1 0 ity of [place] 4.2.7.2.686 Alber as KHURRAM?BLEA [phone] Mi yesi MOY 353 [place] MEDICAL OFFICE BUILDING 2021-08-02 2021-08-02 Outpatient R KJ [facility] [id number] Univers 11:45:00 12:32:41 WONDIFUL ity o f [facility] 2021-08-02 2021-08-02 Outpatient R KJ [facility] [id number] Univers 11:45:00 11:45:00 WONDIFUL ity o f [facility] 2021-08-02 2021-08-02 Outpatient R KJ [facility] [id number] Univers 11:00:00 11:44:39 WONDIFUL ity o f [facility] 2021-08-02 2021-08-02 Office [facility] 1.2.840.114 [id number] Univers 10:37:01 11:44:39 Visit Wondiful A HEALTH 350.1.13.10 ity of [place] [facility] 4.2.7.2.686 Alber as KHURRAM?BLEA [phone] [address] OFFICE [facility] 2021-08-02 2021-08-02 Telephone Dauphin [facility] 1.2.840.114 [id number] Univers 00:00:00 00:00:00 Wondiful A HEALTH 350.1.13.10 ity [place] [facility] 4.2.7.2.686 Alber as KHURRAM?BLEA [phone] [address] OFFICE [facility] 2021-07-30 2021-07-30 Outpatient R LOTTIE, [facility] [id number] Univers 11:00:00 11:00:00 SENDIL ity of [facility] 2021-07-24 2021-07-24 Childhood Development Teacher Ted, Annabel Lab Main [facility] 1.2.8 40.114 [id number] Univers 12:02:05 12:17:05 Visit Marion Vu 350.1.13.10 ity of [place].2.[place] Profess[place] [phone] [address] 2021-07-24 2021-07-24 Outpatient R JANINE MENEZES, [facility] [id number] Univers 12:00:00 12:00:00 MARION roldan [facility] 2021-07-24 2021-07-24 Orders Doctor INGRID 1.2.840.114 [id number] Univers 00:00:00 00:00:00 Only Unassigned, ONESIMO 350.1.13.10 ity of [place] [facility] 4.2.7.2.686 Alber as [phone] [address] 2021-07-22 2021-07-22 Emergency [facility] 1.2.283.447 [id number] Univers 14:26:00 16:01:00 Nilo [place] 350.1.13.10 i ty of [place].2.7.2.[place] [phone] [facility] 084 [place] 2021-07-22 2021-07-22 Emergency X [facility] ERT [id number] Univers 14:26:00 16:01:00 [facility] 2021-07-22 2021-07-22 Orders Doctor INGRID 1.2.840.114 [id number] Univers 00:00:00 00:00:00 Only Unassigned, ONESIMO 350.1.13.10 ity of [place] [facility] 4.2.7.2.686 Alber as [phone] [address] 2021-07-19 2021-07-19 [facility] 1.2.840.114 [id number] Univers 00:00:00 00:00:00 Wondiful A Health 350.1.13.10 ity of [place] 4.2.7.2.686 Alber as Khurram?Blea [phone] Mi gissellri khai [address] [place] [address] Medical Office Building 2021-07-19 2021-07-19 [facility] 1.2.840.114 [id number] Univers 00:00:00 00:00:00 Wondiful A [place] 350.1.13.10 ity of [place] 4.2.7.2.[place] Profess[place] [phone] Mi yesi [place] [address] Branch Building 2021-06-12 2021-06-12 Outpatient R BRODY PLAZA [facility] [id number] Univers 10:00:00 10:00:00 ity of [facility] 2021-06-12 2021-06-12 Outpatient R BRODY PLAZA [facility] [id number] Univers 10:00:00 10:00:00 ity of [facility] 2021-06-12 2021-06-12 Transition Tessa Mohamud 1.2.840.114 [id number] Univers 00:00:00 00:00:00 of Care Sandra Toledo Chavez 350.1.13.10 i ty of [place] 4.2.7.2.686 [facility] maya [phone] [facility] [address] 2021-06-01 2021-06-10 [facility] Huff Last Madride 1.2.840.1 14 [id number] Univers 08:59:00 16:00:00 Encounter Tramaine Monique 350.1.13.10 ity of [place] [facility] 4.2.7.2.68 6 [place] Alcides Humphreysfannyshawn Yoo [phone] [facility] 089 Branch 2021-06-01 2021-06-01 Travel 1.2.840.1 1.2.545.391 [id number] Univers 00:00:00 00:00:00 29306.1.1 350.1.13.10 ity of 3.104.2.7 4.[place].3.698 [place] .3.969281 084.8 Medica l .8 Branch 2021-05-30 2021-05-30 Telephone Farideh 1.2.840.3 [id number] Univers 00:00:00 00:00:00 Migdalia Rowley 20765.1.1 ity of 3.104.2.7 [place] .3.770512 Medica l .8 Branch 2021-05-28 2021-05-28 Outpatient Justina UNDERWOOD [facility] [id number] Univers 13:00:00 13:00:00 WONDIFUL ity o f [facility] 2021-05-24 2021-05-24 Office Jyoti 1.2.840.7 [id number] Univers 14:54:06 15:33:35 Visit Praveena 88360.1.1 ity of 3.104.2.7 [place] .3.598237 Medica l .8 [place] 2021-05-24 2021-05-24 Outpatient [facility] [id number] Univers 15:00:00 15:00:00 PRAVEENADAVID roldan of [facility] 2021-05-24 2021-05-24 Outpatient R PATRICIA RODRÍGUEZ [facility] 10 [id number] Univers 11:00:00 11:00:00 PATRICIA RODRÍGUEZ i ty of [facility] 2021-05-24 2021-05-24 Travel 1.2.840.1 1.2.097.626 [id number] Univers 00:00:00 00:00:00 56890.1.1 350.1.13.10 ity of 3.104.2.7 4.[place].7.3.698 [place] .3.229125 084.8 Medica l .8 [place] 2021-05-22 2021-05-22 Outpatient [facility] [id number] Univers 15:00:00 15:00:00 PRAVEENADAVID roldan [facility] 2021-05-21 2021-05-21 Telephone Kj, 1.2.840.1 [id number] Univers 00:00:00 00:00:00 Wondiful A 02924.1.1 i ty of 3.104.2.7 [place] .3.562555 Medica l .8 [place] 2021-05-16 2021-05-16 Orders Doctor 1.2.840.1 [id number] Univers 00:00:00 00:00:00 Only Unassigned, 24083.1.1 ity of [place] 3.104.2.7 [place] .3.036634 Medica l .8 [place] 2021-05-15 2021-05-15 Transition Cade, 1.2.840.2 [id number] Univers 00:00:00 00:00:00 of Care Sandra L 91079.1.1 ity of 3.104.2.7 [place] .3.934606 Medica l .8 [place] 2021-05-10 2021-05-13 [facility] Last Huff 1.2.840.1 [id number] Univers 11:59:00 14:00:00 Encounter Tramaine Monique 49618.1.1 ity of 3.104.2.7 [place] .3.557524 Medica l .8 Branch 2021-05-10 2021-05-10 Travel 1.2.840.1 1.2.592.943 [id number] Univers 00:00:00 00:00:00 50560.1.1 350.1.13.10 ity of 3.104.2.7 4.2.7.3.698 [place] .3.185441 084.8 Medica l .8 Branch 2021-05-10 2021-05-10 Orders Doctor 1.2.840.7 [id number] Univers 00:00:00 00:00:00 Only Unassigned, 08949.1.1 ity of [place] 3.104.2.7 [place] .3.291625 Medica l .8 Branch 2021-04-30 2021-04-30 Orders Doctor 1.2.840.2 [id number] Univers 00:00:00 00:00:00 Only Unassigned, 27732.1.1 ity of [place] 3.104.2.7 [place] .3.738959 Medica l .8 Branch 2021-04-30 2021-04-30 Telephone Lottie, 1.2.840.5 [id number] Univers 00:00:00 00:00:00 Emi Jordan 51359.1.1 ity of 3.104.2.7 [place] .3.211299 Medica l .8 Branch 2021-04-27 2021-04-27 Office Kj, 1.2.840.5 [id number] Univers 13:03:32 14:05:28 Visit Suman Rowley 36206.1.1 i ty of 3.104.2.7 [place] .3.940978 Medica l .8 Branch 2021-04-27 2021-04-27 Outpatient R KJ [facility] [id number] Univers 13:00:00 13:00:00 WONDIFUL ity o f [facility] 2021-04-27 2021-04-27 Travel 1.2.840.1 1.2.505.741 [id number] Univers 00:00:00 00:00:00 35163.1.1 350.1.13.10 ity of 3.104.2.7 4.[place].7.3.698 [place] .3.553013 084.8 Medica l .8 [place] 2021-04-03 2021-04-03 [facility] [id number] Univers 13:00:00 13:00:00 SENDIL ity [facility] 2021-04-03 2021-04-03 Outpatient R LOTTIE, [facility] [id number] Univers 13:00:00 13:00:00 SENDIL ity [facility] 2021-03-28 2021-03-28 Office Lottie, 1.2.840.9 [id number] Univers 11:05:15 11:39:40 Visit Sendil K.HKeith 23207.1.1 ity of 3.104.2.7 [place] .3.695788 Medica l .8 [place] 2021-03-28 2021-03-28 Outpatient R LOTTIE, [facility] [id number] Univers 11:00:00 11:00:00 SENDIL ity [facility] 2021-03-28 2021-03-28 Travel 1.2.840.1 1.2.251.493 [id number] Univers 00:00:00 00:00:00 16465.1.1 350.1.13.10 ity of 3.104.2.7 4.[place].7.3.698 [place] .3.821863 084.8 Medica l .8 [place] 2021-03-27 2021-03-27 Refill Kj, 1.2.840.1 [id number] Univers 00:00:00 00:00:00 Wondiful A 55910.1.1 i ty of 3.104.2.7 [place] .3.882269 Medica l .8 [place] 2021-03-26 2021-03-26 Refill Kj, 1.2.840.0 [id number] Univers 00:00:00 00:00:00 Wondiful A 55163.1.1 i ty of 3.104.2.7 [place] 19672.114650 Medica l .8 Branch 2021-03-09 2021-03-09 Outpatient R LOTTIE [facility] [id number] Univers 11:00:00 11:00:00 SENDIL ity [facility] 2021-03-09 2021-03-09 Outpatient R LOTTIE [facility] [id number] Univers 11:00:00 11:00:00 SENDIL ity [facility] 2021-02-27 2021-02-27 Outpatient R KJ [facility] [id number] Univers 16:30:00 16:30:00 WONDIFUL ity o f [facility] 2021-02-15 2021-02-15 Outpatient R LOTTIE [facility] [id number] Univers 11:00:00 11:00:00 SENDIL ity [facility] 2021-02-15 2021-02-15 Outpatient R LOTTIE [facility] [id number] Univers 11:00:00 11:00:00 SENDIL ity [facility] 2021-01-25 2021-01-25 Outpatient R PATRICIA RODRÍGUEZ [facility] [id number] Univers 10:30:00 11:33:46 PATRICIA RODRÍGUEZ i ty of [facility] 2021-01-25 2021-01-25 Outpatient R PATRICIA RODRÍGUEZ [facility] 10 [id number] Univers 10:30:00 10:30:00 PATRICIA RODRÍGUEZ i ty of [facility] 2021-01-23 2021-01-23 Outpatient R LOTTIE [facility] [id number] Univers 10:00:00 10:00:00 SENDIL ity [facility] 2020-12-29 2020-12-29 Outpatient R LOTTIE [facility] [id number] Univers 11:30:00 11:30:00 SENDIL ity [facility] 2020-12-28 2020-12-28 Outpatient R KJ [facility] [id number] Univers 14:00:00 14:00:00 WONDIFUL ity o f [facility] 2020-12-05 2020-12-05 Outpatient R BOLABRODY [facility] [id number] Univers 10:00:00 10:00:00 ity of [facility] 2020-11-29 2020-11-29 Outpatient R BOLABRODY [facility] [id number] Univers 00:00:00 00:00:00 ity [facility] 2020-11-22 2020-11-22 Outpatient R BRODY PLAZA [facility] [id number] Univers 00:00:00 00:00:00 ity [facility] 2020-11-17 2020-11-17 Outpatient R LOTTIE [facility] [id number] Univers 14:30:00 14:30:00 [facility] 2020-11-14 2020-11-14 Outpatient Justina PLAZABRODY [facility] [id number] Univers 13:45:00 13:45:00 ity [facility] 2020-10-27 2020-10-27 Outpatient R KJ [facility] [id number] Univers 11:15:00 11:15:00 WONDIFUL ity o f [facility] 2020-09-22 2020-09-22 Outpatient R MICHAEL [facility] [id number] Univers 16:00:00 16:00:00 SAHARA [facility] 2020-09-18 2020-09-18 Outpatient R BECKIE BEDOYA [facility] [id number] Univers 13:30:00 13:30:00 [facility] 2020-09-05 2020-09-05 Outpatient R AMY [facility] [id number] Univers 14:30:00 15:53:51 RENEE [facility] 2020-09-05 2020-09-05 Outpatient R AMY [facility] [id number] Univers 14:30:00 14:30:00 RENEE [facility] 2020-08-09 2020-08-09 Outpatient R KJ [facility] [id number] Univers 09:20:21 23:59:00 WONDIFUL ity o f [facility] 2020-08-09 2020-08-09 Outpatient R KJ [facility] [id number] Univers 00:00:00 00:00:00 WONDIFUL ity o f [facility] 2020-08-03 2020-08-03 Outpatient R KJ [facility] [id number] Univers 11:15:00 11:15:00 WONDIFUL ity o f [facility] 2020-07-17 2020-07-17 Outpatient R KJ [facility] [id number] Univers 11:00:00 11:00:00 WONDIFUL ity o f [facility] 2020-07-17 2020-07-17 [place] [facility] 1.2.840.114 [id number] 00:00:00 00:00:00 Wondiful A Health 350.1.13.10 [place] 4.2.7.2.[phone] 2020-07-12 2020-07-12 [place] [facility] 1.2.840.114 [id number] 00:00:00 00:00:00 Wondiful A Health 350.1.13.10 [place] 4.2.7.2.[address] Professio [phone] [address] 2020-07-11 2020-07-11 [place] [facility] 1.2.840.114 [id number] 00:00:00 00:00:00 Wondiful A Health 350.1.13.10 [place] 4.2.7.2.686 Professio [phone] [address] 2020-06-28 2020-06-28 [place] [facility] 1.2.840.114 [id number] 00:00:00 00:00:00 Wondiful A Health 350.1.13.10 [place] 4.2.7.2.[address] [id number] [address] 2020-06-27 2020-06-27 Outpatient R KJ [facility] [id number] Univers 15:00:00 15:00:00 WONDIFUL ity o f [facility] 2020-05-11 2020-05-27 Inpatient Rita, HCAPM LABO [id number] [facility] 15:00:00 08:02:06 Salim 30 [facility] 2020-05-27 2020-05-20 Inpatient VERONICA [place] [facility] [id number] [facility] 11:30:00 07:00:00 Salim 60 [facility] 2020-04-28 2020-04-28 Telephone [facility] 1.2.840.114 [id number] 00:00:00 00:00:00 Wondiful A [place] 350.1.13.10 [place] 4.2.7.2.686 Professio [id number] [address] 2020-04-28 2020-04-28 Orders Doctor INGRID 1.2.840.114 [id number] 00:00:00 00:00:00 Only Unassigned, ONESIMO 350.1.13.10 [place] [facility] 4.2.7.2.686 [id number] 009 2020-04-21 2020-04-21 Telephone [facility] 1.2.840.114 [id number] 00:00:00 00:00:00 Wondiful A [place] 350.1.13.10 [place] 4.2.7.2.686 Professio [phone] [address] 2020-04-20 2020-04-20 Orders Doctor INGRID 1.2.840.114 [id number] 00:00:00 00:00:00 Only Unassigned, ONESIMO 350.1.13.10 [place] [facility] 4.2.7.2.686 [id number] 009 2020-04-14 2020-04-14 Telephone [facility] 1.2.840.114 [id number] 00:00:00 00:00:00 Wondiful A Health 350.1.13.10 [place] 4.2.7.2.686 Professio [phone] [place] [address] [address] One 2020-03-30 2020-03-30 Telephone [facility] 1.2.840.114 [id number] 00:00:00 00:00:00 Wondiful A [place] 350.1.13.10 [place] 4.2.7.2.686 Professio [phone] [address] 2020-02-15 2020-02-15 Telemedici [facility] 1.2.840.114 [id number] 07:17:35 09:48:52 ne Visit Wondiful A [place] 350.1.13.10 [place] 4.2.7.2.686 Professio [phone] [address] 2020-02-15 2020-02-15 Outpatient R JK [facility] [id number] Univers 09:00:00 09:00:00 WONDIFUL ity o f [facility] 2020-01-27 2020-01-27 Telephone [facility] 1.2.840.114 [id number] 00:00:00 00:00:00 Wondiful A Health 350.1.13.10 [place] 4.2.7.2.686 Professio [phone] [place] [address] [address] 2020-01-12 2020-01-12 Emergency X [facility] ERT [id number] Univers 15:43:26 16:46:00 LAST [facility] 2020-01-12 2020-01-12 Emergency [facility] 1.2.349.325 [id number] 15:43:26 16:46:00 Last Ilana 350.1.13.10 [place] 4.2.7.2.686 [place] [id number] 084 2020-01-09 2020-01-09 Outpatient R [facility] [id number] Univers 11:00:00 11:00:00 [facility] 2020-01-08 2020-01-08 Outpatient R NUBIA [facility] [id number] Univers 17:00:00 17:00:00 KIAWANA [facility] 2019-12-15 2019-12-15 Outpatient R KELY [facility] [id number] Univers 13:00:00 13:00:00 JOEY [facility] 2019-12-05 2019-12-05 Case [facility] 1.2.840.114 [id number] 00:00:00 00:00:00 Management Wondiful A Health 350.1.13.10 [place] 4.2.7.2.686 [facility] [phone] nal 044 Office [address] One 2019-12-02 2019-12-02 Outpatient Justina UNDERWOOD [facility] [id number] Univers 11:30:00 11:30:00 WONDIFUL ity o f [facility] 2019-11-30 2019-11-30 Outpatient Justina UNDERWOOD [facility] [id number] Univers 10:08:46 23:59:00 WONDIFUL ity o f [facility] 2019-11-30 2019-11-30 Outpatient Justina UNDERWOOD [facility] [id number] Univers 00:00:00 00:00:00 WONDIFUL ity o f [facility] 2019-11-26 2019-11-26 Outpatient Justina UNDERWOOD [facility] [id number] Univers 10:30:00 10:23:01 WONDIFUL ity o f [facility] 2019-11-26 2019-11-26 Office Kj [facility] 1.2.840.114 [id number] 09:35:51 10:23:01 Visit Zentyal 350.1.13.10 [place] 4.2.7.2.686 [facility] [phone] nal 044 Office [facility] One Results Test Description Test Time Test Comments Results Result Comments Source POC-Glucose meter 2022-06-18 16:06:35 Test Item Value Reference Range Interpretation Comme nts POC-Glucose Meter (test code = 202 mg/dL 70-110 H : TESTED AT [place] [address]) [facility], [facility] 30: Plug Cutting Machine Operator/Techni anna ID = [id number] for BATTAD, LESLIE Lab Interpretation (test code = Abnormal 77511-2) [facility] [id number] 16:06:35 Test Item Value Reference Range Interpretation Comments POC-Glucose Meter (test 202 mg/dL 70-110 H : TE STED AT [facility] code = 1538) [address] [place] [address], [facility] 30: Plug Cutting Machine Operator/Techni anna ID = [id number] for BATTAD, LESLIE Lab Interpretation (test Abnormal code = 65076-1) [facility] [id number] 16:06:35 Test Item Value Reference Range Interpretation Comments POC-Glucose Meter (test 202 mg/dL 70-110 H : TE STED AT [facility] code = 1538) [address] [place] [address], 770 30: Plug Cutting Machine Operator/Techni anna ID = [id number] for BATTAD, LESLIE Lab Interpretation (test Abnormal code = 56153-9) [facility] [id number] 16:06:35 Test Item Value Reference Range Interpretation Comments POC-Glucose Meter (test 202 mg/dL 70-110 H : TE STED AT [facility] code = 1538) [address] [place] [address], 770 30: Plug Cutting Machine Operator/Techni anna ID = [id number] for BATTAD, LESLIE Lab Interpretation (test Abnormal code = 92793-9) [facility] [id number] 16:06:35 Test Item Value Reference Range Interpretation Comments POC-Glucose Meter (test 202 mg/dL 70-110 H : TE STED AT [facility] code = 1538) [address] [place] [address], 770 30: Plug Cutting Machine Operator/Techni anna ID = [id number] for BATTAD, LESLIE Lab Interpretation (test Abnormal code = 68060-8) [facility] [id number] 16:06:35 Test Item Value Reference Range Interpretation Comments POC-Glucose Meter (test 202 mg/dL 70-110 H : TE STED AT [facility] code = 1538) [address] [place] [address], [facility] 30: Plug Cutting Machine Operator/Techni anna ID = [id number] for BATTAD, LESLIE Lab Interpretation (test Abnormal code = 43203-4) [facility] [id number] 16:06:35 Test Item Value Reference Range Interpretation Comments POC-Glucose Meter (test 202 mg/dL 70-110 H : TE STED AT [facility] code = 1538) [address] [place] [address], 770 30: Plug Cutting Machine Operator/Techni anna ID = [id number] for BATTAD, LESLIE Lab Interpretation (test Abnormal code = 23243-1) [facility] [id number] 16:06:35 Test Item Value Reference Range Interpretation Comments POC-Glucose Meter (test 202 mg/dL 70-110 H : TE STED AT [facility] code = 1538) [address] [place], 770 30: Plug Cutting Machine Operator/Techni anna ID = [id number] for LESLIE PERKINS Lab Interpretation (test Abnormal code = 67070-7) [facility] [id number] 16:06:35 Test Item Value Reference Range Interpretation Comments POC-GLUCOSE METER 202 mg/dL 70-110 H : TESTED A T [facility] 67[address] (BEAKER) (test code = DALILA R [facility], 1538) [address]: Plug Cutting Machine Operator/Techni anna ID = [id number] for LESLIE BLOCK BASIC METABOLIC [id number] 12:33:29 Test Item Value Reference Range Interpretation [...] not appl icable for dialysis patien ts Plug Cutting Machine Operator ID - SILAS DOS [id number] 12:28:05 Test Item Value Reference Range Interpretation Comments PARTIAL THROMBOPLASTIN TIME 29.0 seconds 22.5-36.0 (BEAKER) (test code = 760) PROTHROMBIN TIME/[id number] 12:27:26 Test Item Value Reference Range Interpretation Comments PROTIME (BEAKER) 14.5 seconds 11.9-14.2 H (test code = 759) INR (BEAKER) (test 1.20 See_Comment [Automat ed message] code = 370) The system [employer] generated this result transmitted ref erence range: <=5.90. The reference range was not used to int erpret this result as normal/abnormal . RECOMMENDED COUMADIN/WARFARIN INR THERAPY RANGESSTANDARD DOSE: 2.0 - 3.0 Includes: PROPHYLAXIS for venous thrombosis, systemic embolization; TREATMENT for venous thrombosis and/or pulmonary embolus.HIGH RISK: Target INR is 2.5-3.5 for patients with mechanical heart valves.CBC W/PLT COUNT & AUTO [id number] 12:20:06 Test Item Value Reference Range Interpretation [...] PERCENT (BEAKER) (test code = 2801) POCT-GLUCOSE [id number] 11:30:29 Test Item Value Reference Range Interpretation Comments POC-GLUCOSE METER 233 mg/dL 70-110 H : TESTED A T [facility] (BEAKER) (test code = DALILA HAYNES [place], 1538) [address]: Plug Cutting Machine Operator/Techni anna ID = [id number] for CR IDALIA MORATAYA COMPREHENSIVE METABOLIC [id number] 05:31:58 Test Item Value Reference Range Interpretation Comments GLUCOSE (test code = 165 MG/DL 70-99 H 2216) BUN (test code = 32 MG/DL 8-23 H 2207) CREATININE (test 1.52 MG/DL 0.60-1.30 H code = 2214) eGFR (2020 CKD-EPI) 35 >60 L (test code = 76742) ML/MIN/1.73 CALC BUN/CREAT (test 21 RATIO 6-28 code = 2235) SODIUM (test code = 145 MEQ/L 867-809 0323) POTASSIUM (test code 4.7 MEQ/L 3.5-5.4 = 2227) CHLORIDE (test code 107 MEQ/L 95-107 = 2215) CARBON DIOXIDE (test 25 MEQ/L 19-31 code = 2206) CALCIUM (test code = 9.1 MG/DL 8.5-10.5 220) PROTEIN, TOTAL (test 6.2 G/DL 6.1-8.3 code = 2229) ALBUMIN (test code = 4.0 G/DL 3.5-5.2 2200) CALC GLOBULIN (test 2.2 G/DL 1.9-3.7 code = 2240) CALC A/G RATIO (test 1.8 RATIO 1.0-2.6 code = 2234) BILIRUBIN, TOTAL 0.3 MG/DL See_Comment [Automated message] (test code = 2207) [employer] which generated this result transmitted ref erence range: <=1.2. T he reference range was not used to int erpret this result as normal/abnormal . ALKALINE PHOSPHATASE 121 U/L 40-142 (test code = 2204) AST (test code = 18 U/L 9-40 2217) ALT (test code = 40 U/L 5-40 UNLESS OTH ERWISE 2218) INDICATED, ALL TESTING PERFORM ED ATCLINICAL PATH [facility], [facility]. [address] [place] [id number] [place] [address] DIRECTOR: MCIHAEL BOLAÑOS M.D. CLIA NUMBER [id number] CAP ACCREDITATION N O. [id number] HEMOGLOBIN [id number] 04:17:53 Test Item Value Reference Range Interpretation Comments HEMOGLOBIN A1c (test 9.7 % 4.2-5.6 H AMERIC AN DIABETES code = 61537) ASSOCIATION IDELINES FOR HGB A1C: PREDIABETES/INC REASED [...] LABORATORY C ONSULTATION. CBC W/AUTO DIFF WITH [id number] 02:35:56 Test Item Value Reference Range Interpretation [...] RBCS 0.00 K/UL 0.00-0.11 (test code = 96471) COMP. METABOLIC PANEL (46374)2021-11-07 22:52:27 Test Item Value Reference Range Interpretation Comments NA (test code = 142 mmol/L 135-145 6562679552) K (test code = 5.5 mmol/L 3.5-5.0 H 9253418853) CL (test code = 115 mmol/L 98-108 H 5500703232) CO2 TOTAL (test code = 19 mmol/L 23-31 L 2321151643) AGAP (test code = 2-16 2915213282) BUN (test code = 56 mg/dL 7-23 H 5218431571) GLUCOSE (test code = 53 mg/dL 70-110 L 4114710655) CREATININE (test code = 1.45 mg/dL 0.50-1.04 H 2965865710) TOTAL BILI (test code = 0.6 mg/dL 0.1-1.7 8757966457) CALCIUM (test code = 8.9 mg/dL 8.6-10.6 7500965073) T PROTEIN (test code = 6.3 g/dL 6.3-8.2 5902888420) ALBUMIN (test code = 3.8 g/dL 3.5-5.0 1627213133) ALK PHOS (test code = 74 U/L 34-122 7420230560) ALTv (test code = 40 U/L 5-35 H 1742-6) AST(SGOT) (test code = 32 U/L 13-40 7703765621) eGFR (test code = mL/min/1.73m2 3321945515) JUAN (test code = JUAN) Association of [...] tests). Lab Interpretation Abnormal (test code = 74885-8) [facility] WITHOUT [id number] 20:09:26 Test Item Value Reference Range Interpretation Comments WBC (test code = 6690-2) See_Comment [A utomated message] The system [employer] generated this result transmit osman reference range : 4.30 - 11.10 10*3/?L. The reference range was not used to interpret this result as normal/abnormal . RBC (test code = 789-8) See_Comment L [Au tomated message] The system [employer] generated this result transmit osman reference range [...] See_Comment L [Au tomated message] The system [employer] generated this result transmit osman reference range : 166 - 358 10*3/?L. The reference range was not used to interpret this result as normal/abnormal . MPV (test code = 10.6 fL 9.5-12.9 91830-8) RDW-CV (test code = 11.9 % 12.0-15.5 L 788-0) RDW-SD (test code = 41.6 fL 39.0-49.9 41912-5) NRBC x10^3 (test code = <0.01 See_Comment [Au tomated message] 2645119791) The system [employer] generated this result transmit osman reference range : 10*3/?L. The reference range was not used to interpret this result as normal/abnormal . NRBC/100 WBC (test code See_Comment [Au tomated message] = 3900089353) The system [employer] generated this result transmit osman reference range : 0.0 - 10.0 /100 WBC s. The reference r marshal was not used to interpret this result as normal/abnormal . IPF % (test code = 8048053960) Lab Interpretation (test Abnormal code = 54051-3) [facility] [id number] 10:13:00 Test Item Value Reference Range Interpretation Comments GLUCOSE BEDSIDE TESTING (test code 205 MG/DL 60-99 H = GLUBED) GLUCOSE BEDSIDE [id number] 08:55:00 Test Item Value Reference Range Interpretation Comments GLUCOSE BEDSIDE TESTING (test code 198 MG/DL 60-99 H = GLUBED) GLUCOSE BEDSIDE [id number] 04:28:00 Test Item Value Reference Range Interpretation Comments GLUCOSE BEDSIDE TESTING (test code 202 MG/DL 60-99 H = GLUBED) GLUCOSE BEDSIDE [id number] 23:36:00 Test Item Value Reference Range Interpretation Comments GLUCOSE BEDSIDE TESTING (test code 194 MG/DL 60-99 H = GLUBED) GLUCOSE BEDSIDE [id number] 19:34:00 Test Item Value Reference Range Interpretation Comments GLUCOSE BEDSIDE TESTING (test code 226 MG/DL 60-99 H = GLUBED) GLUCOSE BEDSIDE [id number] 16:40:00 Test Item Value Reference Range Interpretation Comments GLUCOSE BEDSIDE TESTING (test code 239 MG/DL 60-99 H = GLUBED) GLUCOSE BEDSIDE [id number] 13:41:00 Test Item Value Reference Range Interpretation Comments GLUCOSE BEDSIDE TESTING (test code 220 MG/DL 60-99 H = GLUBED) GLUCOSE BEDSIDE [id number] 11:47:00 Test Item Value Reference Range Interpretation Comments GLUCOSE BEDSIDE TESTING (test code 275 MG/DL 60-99 H = GLUBED) GLUCOSE BEDSIDE [id number] 09:28:00 Test Item Value Reference Range Interpretation Comments GLUCOSE BEDSIDE TESTING (test code 285 MG/DL 60-99 H = GLUBED) GLUCOSE BEDSIDE [id number] 06:09:00 Test Item Value Reference Range Interpretation Comments GLUCOSE BEDSIDE TESTING (test code 237 MG/DL 60-99 H = GLUBED) GLUCOSE BEDSIDE [id number] 20:14:00 Test Item Value Reference Range Interpretation Comments GLUCOSE BEDSIDE TESTING (test code 261 MG/DL 60-99 H = GLUBED) GLUCOSE BEDSIDE [id number] 13:10:00 Test Item Value Reference Range Interpretation Comments GLUCOSE BEDSIDE TESTING (test code 201 MG/DL 60-99 H = GLUBED) GLUCOSE BEDSIDE [id number] 08:39:00 Test Item Value Reference Range Interpretation Comments GLUCOSE BEDSIDE TESTING (test code 252 MG/DL 60-99 H = GLUBED) - XR CHEST [id number] 07:48:00 Patient Name: RUTH ANN MONTEJO Unit No: [id number] EXAMS: CPT CODE: [id number] XR CHEST 1V 05514 EXAM: Chest x-ray, 1 view Dictation location: [...] previous CABG. 3. Large right apical bulla. [id number] Reported and signed by: Mika Draper MD CC: Radha Salinas MD; Humberto Carter; Caridad ASHBY Technologist: Brody I. Dillon, RT(R) Transcrpt Date/Tm/Trnsp: 05/29/2020 (0748) KandyR.BC0 Orig Print D/T: S: 05/29/2020 (0751) [facility] NAME: RUTH ANN MONTEJO [id number] PHYS: [place] [address] : 1945 AGE: 74 SEX: F LOC: Z .SI12 A PHONE #: [phone] EXAM DATE: 05/29/2020 STATUS: ADM IN FAX #: [phone] RADIOLOGY NO:PAGE 1 Signed ReportCBC W/O [id number] 06:18:00 Test Item Value Reference Range Interpretation [...] = 0.00 K/mm3 0.0-0.1 N NRBC#) WBC [id number] 06:18:00 Test Item Value Reference Range Interpretation [...] code = NORMAL NORMAL PLTMORPH) BASIC METABOLIC [id number] 05:11:00 Test Item Value Reference Range Interpretation [...] code = 7.5 MG/DL 8.4-10.2 L CA) [id number] 05:11:00 Test Item Value Reference Range Interpretation Comments MAGNESIUM (test code = MAG) 2.3 MG/DL 1.6-2.3 BASIC METABOLIC [id number] 05:00:00 Test Item Value Reference Range Interpretation [...] CALCIUM (test code = MG/DL 8.7-9.7 CA) [id number] 05:00:00 Test Item Value Reference Range Interpretation Comments MAGNESIUM (test code = MAG) MG/DL 1.6-2.3 BASIC METABOLIC [id number] 04:57:00 Test Item Value Reference Range Interpretation [...] CALCIUM (test code = CA) MG/DL 8.7-9.7 [id number] 04:57:00 Test Item Value Reference Range Interpretation Comments MAGNESIUM (test code = MAG) MG/DL 1.6-2.3 CBC W/O [id number] 04:44:00 Test Item Value Reference Range Interpretation [...] = 0.00 K/mm3 0.0-0.1 N NRBC#) WBC [id number] 04:44:00 Test Item Value Reference Range Interpretation Comments RBC MORPHOLOGY REQUIRED (test code = RBCM) TOTAL CELLS COUNTED (test code = TCC) #CELLS SEGMENTED NEUTROPHILS (test code = % 36.2-73.8 SEG) LYMPHOCYTE (test code = LYMPH) % 12.9-45.1 MONOCYTE (test code = MON) % 0-11 PLATELET ESTIMATE (test code = ADEQUATE PLTEST) PLATELET MORPHOLOGY (test code = NORMAL PLTMORPH) CBC W/AUTO [id number] 04:44:00 Test Item Value Reference Range Interpretation [...] = 0.00 K/mm3 0.0-0.1 N NRBC#) WBC [id number] 04:44:00 Test Item Value Reference Range Interpretation Comments RBC MORPHOLOGY REQUIRED (test code = RBCM) TOTAL CELLS COUNTED (test code = TCC) #CELLS SEGMENTED NEUTROPHILS (test code = % 36.2-73.8 SEG) LYMPHOCYTE (test code = LYMPH) % 12.9-45.1 MONOCYTE (test code = MON) % 0-11 PLATELET ESTIMATE (test code = ADEQUATE PLTEST) PLATELET MORPHOLOGY (test code = NORMAL PLTMORPH) GLUCOSE BEDSIDE [id number] 01:46:00 Test Item Value Reference Range Interpretation Comments GLUCOSE BEDSIDE TESTING (test code 255 MG/DL 60-99 H = GLUBED) GLUCOSE BEDSIDE [id number] 20:02:00 Test Item Value Reference Range Interpretation Comments GLUCOSE BEDSIDE TESTING (test code 240 MG/DL 60-99 H = GLUBED) GLUCOSE BEDSIDE [id number] 17:30:00 Test Item Value Reference Range Interpretation Comments GLUCOSE BEDSIDE TESTING (test code 246 MG/DL 60-99 H = GLUBED) [id number] 15:31:00 Test Item Value Reference Range Interpretation Comments POTASSIUM (test code = K) 4.7 MMOL/L 3.5-5.1 N UNABLE TO DRAW BLOOD, REASON: CBNNOTIFIED PATIENT CARE STAFF: ROBERTS CHAPELMarilu 05/28/20 AT 1508 BY Migdalia Wallace [id number] 15:22:00 Test Item Value Reference Range Interpretation Comments HEMOGLOBIN (test code = HGB) 8.1 G/DL 11.2-14.9 L UNABLE TO DRAW BLOOD, REASON: CBNNOTIFIED PATIENT CARE STAFF: ROBERTS CHAPELMarilu 05/28/20 AT 1508 BY Migdalia Wallace AnGLUCOSE BEDSIDE [id number] 12:24:00 Test Item Value Reference Range Interpretation Comments GLUCOSE BEDSIDE TESTING (test code 293 MG/DL 60-99 H = GLUBED) HGB [id number] 08:21:00 Test Item Value Reference Range Interpretation Comments HEMOGLOBIN (test code = HGB) 7.4 G/DL 11.2-14.9 L HEMATOCRIT (test code = HCT) 23.0 % 33.2-43.5 L CBC W/O [id number] 08:17:00 Test Item Value Reference Range Interpretation [...] = 0.00 K/mm3 0.0-0.1 N NRBC#) WBC [id number] 08:17:00 Test Item Value Reference Range Interpretation [...] code = NORMAL NORMAL PLTMORPH) GLUCOSE BEDSIDE [id number] 07:31:00 Test Item Value Reference Range Interpretation Comments GLUCOSE BEDSIDE TESTING (test code 279 MG/DL 60-99 H = GLUBED) GLUCOSE BEDSIDE [id number] 07:07:00 Test Item Value Reference Range Interpretation Comments GLUCOSE BEDSIDE TESTING (test code 222 MG/DL 60-99 H = GLUBED) BASIC METABOLIC [id number] 06:39:00 Test Item Value Reference Range Interpretation [...] 74-106 HH CALLED TO RAY Ruiz & GLU) READBACK ON AT 0637 BY [...] code = 7.8 MG/DL 8.4-10.2 L CA) [id number] 06:39:00 Test Item Value Reference Range Interpretation Comments MAGNESIUM (test code = MAG) 1.6 MG/DL 1.6-2.3 N BASIC METABOLIC [id number] 06:33:00 Test Item Value Reference Range Interpretation [...] CALCIUM (test code = CA) MG/DL 8.7-9.7 [id number] 06:33:00 Test Item Value Reference Range Interpretation Comments MAGNESIUM (test code = MAG) MG/DL 1.6-2.3 CBC W/O [id number] 06:18:00 Test Item Value Reference Range Interpretation [...] = 0.00 K/mm3 0.0-0.1 N NRBC#) WBC [id number] 06:18:00 Test Item Value Reference Range Interpretation Comments RBC MORPHOLOGY REQUIRED (test code = RBCM) TOTAL CELLS COUNTED (test code = TCC) #CELLS SEGMENTED NEUTROPHILS (test code = % 36.2-73.8 SEG) LYMPHOCYTE (test code = LYMPH) % 12.9-45.1 MONOCYTE (test code = MON) % 0-11 PLATELET ESTIMATE (test code = ADEQUATE PLTEST) PLATELET MORPHOLOGY (test code = NORMAL PLTMORPH) CBC W/AUTO [id number] 06:18:00 Test Item Value Reference Range Interpretation [...] = 0.00 K/mm3 0.0-0.1 N NRBC#) WBC [id number] 06:18:00 Test Item Value Reference Range Interpretation Comments RBC MORPHOLOGY REQUIRED (test code = RBCM) TOTAL CELLS COUNTED (test code = TCC) #CELLS SEGMENTED NEUTROPHILS (test code = % 36.2-73.8 SEG) LYMPHOCYTE (test code = LYMPH) % 12.9-45.1 MONOCYTE (test code = MON) % 0-11 PLATELET ESTIMATE (test code = ADEQUATE PLTEST) PLATELET MORPHOLOGY (test code = NORMAL PLTMORPH) - XR CHEST [id number] 05:24:00 Patient Name: RUTH ANN MONTEJO Unit No: [id number] EXAMS: CPT CODE: [id number] XR CHEST 1V 90701 EXAMINATION: - XR CHEST 1V LOCATION: H61 INDICATION/CLINICAL HISTORY: post op surgery COMPARISON: Chest x-ray 05/25/2020 TECHNIQUE: Frontal view of the chest. FINDINGS: Right subclavian central lineand enteric catheter are stable. The cardiac silhouette is normal in size. Postsurgical change of CABG noted. Bibasilar subsegmental atelectasis is similar. No new consolidation. No appreciable pneumothorax or pleural effusion. IMPRESSION: No significant interval change. at 0524 Reported and signed by: Adrianna Carrasquillo MD CC: Radha Salinas MD; Humberto Carter; Caridad ASHBY Technologist: Brody Dillon, RT(R) Transcrpt Date/Tm/Trnsp: 05/28/2020 (523) [email or web address].TH15 Orig Print D/T: S: 05/28/2020 (82) [facility] NAME: SIS MONTEJO [id number] PHYS: Car[place] [address] : 1945 AGE: 74 SEX: F LOC: Z.SI12 A PHONE #: [phone] EXAM DATE: 05/28/2020 STATUS: ADM IN FAX #: [phone] RADIOLOGY NO: PAGE 1 Signed ReportBASIC METABOLIC [id number] 01:07:00 Test Item Value Reference Range Interpretation [...] 7.5 MG/DL 8.4-10.2 L CA) BASIC METABOLIC [id number] 00:55:00 Test Item Value Reference Range Interpretation [...] code = MG/DL 8.7-9.7 CA) BASIC METABOLIC [id number] 00:53:00 Test Item Value Reference Range Interpretation [...] CALCIUM (test code = CA) MG/DL 8.7-9.7 [id number] 00:03:00 Test Item Value Reference Range Interpretation Comments HEMOGLOBIN (test code = HGB) 8.2 G/DL 11.2-14.9 L BASIC METABOLIC [id number] 19:38:00 Test Item Value Reference Range Interpretation [...] 7.8 MG/DL 8.4-10.2 L CA) BASIC METABOLIC [id number] 19:37:00 Test Item Value Reference Range Interpretation [...] code = MG/DL 8.7-9.7 CA) BASIC METABOLIC [id number] 19:35:00 Test Item Value Reference Range Interpretation [...] code = CA) MG/DL 8.7-9.7 BASIC METABOLIC [id number] 19:34:00 Test Item Value Reference Range Interpretation [...] CALCIUM (test code = CA) MG/DL 8.7-9.7 [id number] 17:02:00 Test Item Value Reference Range Interpretation Comments ACT-ISTAT (test code = ACTI) 136 SEC 74-137 N ARTERIAL BLOOD [id number] 16:23:00 Test Item Value Reference Range Interpretation [...] = 40 % COHBGFFIO2) - XR CHEST [id number] 16:20:00 Patient Name: RUTH ANN MONTEJO Unit No: [id number] EXAMS: CPT CODE: [id number] XR CHEST V 02810 EXAM: - XR CHEST 1V 05/27/2020 3:49 [...] and signed by: Michael Hadley MD CC: Radha Salinas MD; Caridad ASHBY Technologist: Jarocho Snell, (RT) (R) Transcrpt Date/Tm/Trnsp: 05/27/2020 (1620) Kt.CP11 Orig Print D/T: S: 05/27/2020 (0726) [facility] [place] NAME: RUTH ANN MONTEJO [id number] PHYS: [place] [address] : 1945 AGE: 74 SEX: F LOC: Z.SI12 A PHONE #: [phone] EXAM DATE: 05/27/2020 STATUS: ADM IN FAX #: [phone] RADIOLOGY NO: PAGE 1 Signed [id number] 15:07:00 Test Item Value Reference Range Interpretation Comments ACT-ISTAT (test code = ACTI) 257 SEC 74-137 H PROTHROMBIN [id number] 14:54:00 Test Item Value Reference Range Interpretation [...] myocar dial infarction. 2.0 - 3.0 3. Can Line Operator al prosthesis hear t valves, recurre nt systemic emboli sm. 3.0 - 4.5 BASIC METABOLIC [id number] 14:49:00 Test Item Value Reference Range Interpretation Comments SODIUM (test code = 137 MMOL/L 137-145 N NA) POTASSIUM (test code = 6.3 MMOL/L 3.5-5.1 GARCIA D TO Justina STEARNS& Zacarias) READBACK ON 08/ 22/20 AT 1449 BY Lily Quintanilla CHLORIDE (test [...] 7.0 MG/DL 8.4-10.2 L CA) BASIC METABOLIC [id number] 14:47:00 Test Item Value Reference Range Interpretation [...] 7.0 MG/DL 8.4-10.2 L CA) BASIC METABOLIC [id number] 14:46:00 Test Item Value Reference Range Interpretation [...] code = MG/DL 8.7-9.7 CA) BASIC METABOLIC [id number] 14:46:00 Test Item Value Reference Range Interpretation [...] code = MG/DL 8.7-9.7 CA) CBC W/AUTO [id number] 14:31:00 Test Item Value Reference Range Interpretation [...] 0.00 K/mm3 0.0-0.1 N NRBC#) CBC W/AUTO [id number] 13:47:00 Test Item Value Reference Range Interpretation [...] K/mm3 0.0-0.1 N code = NRBC#) DIFFERENTIAL [id number] 13:47:00 Test Item Value Reference Range Interpretation Comments RBC MORPHOLOGY REQUIRED (test code = NORMAL RBCM) PLATELET ESTIMATE (test code = ADEQUATE ADEQUATE PLTEST) PLATELET MORPHOLOGY (test code = NORMAL NORMAL PLTMORPH) PROTHROMBIN [id number] 13:24:00 Test Item Value Reference Range Interpretation [...] myocar dial infarction. 2.0 - 3.0 3. Can Line Operator al prosthesis hear t valves, recurre nt systemic emboli sm. 3.0 - 4.5 UNKNOWN INTERFERENCE. PLEASE RECOLLECT IF RESULT IS NEEDED.COMPREHENSIVE METABOLIC [id number] 12:24:00 Test Item Value Reference Range Interpretation [...] N (test code = ALKP) COMPREHENSIVE METABOLIC [id number] 12:22:00 Test Item Value Reference Range Interpretation [...] N (test code = ALKP) COMPREHENSIVE METABOLIC [id number] 12:20:00 Test Item Value Reference Range Interpretation [...] code = UNITS/L 38-126 ALKP) COMPREHENSIVE METABOLIC [id number] 12:19:00 Test Item Value Reference Range Interpretation [...] code = UNITS/L 38-126 ALKP) CBC W/AUTO [id number] 12:19:00 Test Item Value Reference Range Interpretation [...] K/mm3 0.0-0.1 N code = NRBC#) DIFFERENTIAL [id number] 12:19:00 Test Item Value Reference Range Interpretation Comments RBC MORPHOLOGY REQUIRED (test code = RBCM) PLATELET ESTIMATE (test code = PLTEST) ADEQUATE PLATELET MORPHOLOGY (test code = NORMAL PLTMORPH) CBC W/AUTO [id number] 12:19:00 Test Item Value Reference Range Interpretation [...] K/mm3 0.0-0.1 N code = NRBC#) DIFFERENTIAL [id number] 12:19:00 Test Item Value Reference Range Interpretation Comments RBC MORPHOLOGY REQUIRED (test code = RBCM) PLATELET ESTIMATE (test code = PLTEST) ADEQUATE PLATELET MORPHOLOGY (test code = NORMAL PLTMORPH) BASIC METABOLIC [id number] 07:56:00 Test Item Value Reference Range Interpretation [...] 0-189 mg/dL VERY HIGH.........>/ = 190 mg/dL [id number] 07:56:00 Test Item Value Reference Range Interpretation Comments MAGNESIUM (test code = MAG) 1.8 MG/DL 1.6-2.3 N BASIC METABOLIC [id number] 07:54:00 Test Item Value Reference Range Interpretation [...] LDL (test MG/DL 0-99 code = LDL) [id number] 07:54:00 Test Item Value Reference Range Interpretation Comments MAGNESIUM (test code = MAG) 1.8 MG/DL 1.6-2.3 N PROTHROMBIN [id number] 07:49:00 Test Item Value Reference Range Interpretation [...] myocar dial infarction. 2.0 - 3.0 3. Can Line Operator al prosthesis hear t valves, recurre nt systemic emboli sm. 3.0 - 4.5 PTT [id number] 07:49:00 Test Item Value Reference Range Interpretation Comments PTT ACTIVATED (test code = APTT) 30.8 SECONDS 25.1-36.5 N BASIC METABOLIC [id number] 07:44:00 Test Item Value Reference Range Interpretation [...] LDL (test code = LDL) MG/DL 0-99 [id number] 07:44:00 Test Item Value Reference Range Interpretation Comments MAGNESIUM (test code = MAG) MG/DL 1.6-2.3 BASIC METABOLIC [id number] 07:42:00 Test Item Value Reference Range Interpretation [...] LDL (test code = LDL) MG/DL 0-99 [id number] 07:42:00 Test Item Value Reference Range Interpretation Comments MAGNESIUM (test code = MAG) MG/DL 1.6-2.3 BASIC METABOLIC [id number] 07:41:00 Test Item Value Reference Range Interpretation [...] LDL (test code = LDL) MG/DL 0-99 [id number] 07:41:00 Test Item Value Reference Range Interpretation Comments MAGNESIUM (test code = MAG) MG/DL 1.6-2.3 CBC W/AUTO [id number] 07:39:00 Test Item Value Reference Range Interpretation [...] 0.0-0.1 N NRBC#) COVID 19 Asymptomatic IH [id number] 06:05:00 Test Item Value Reference Range Interpretation [...] amount of virus (antigen) in the sample." [id number] 13:38:00 Test Item Value Reference Range Interpretation Comments ACT-ISTAT (test code = ACTI) 241 SEC 74-137 H [id number] 13:38:00 Test Item Value Reference Range Interpretation Comments ACT-ISTAT (test code = ACTI) 224 SEC 74-137 H PROTHROMBIN [id number] 10:02:00 Test Item Value Reference Range Interpretation [...] myocar dial infarction. 2.0 - 3.0 3. Can Line Operator al prosthesis hear t valves, recurre nt systemic emboli sm. 3.0 - 4.5 PTT [id number] 10:02:00 Test Item Value Reference Range Interpretation Comments PTT ACTIVATED (test code = APTT) 25.1 SECONDS 22.0-33.0 N BASIC METABOLIC [id number] 09:48:00 Test Item Value Reference Range Interpretation [...] 0-189 mg/dL VERY HIGH.........>/ = 190 mg/dL [id number] 09:48:00 Test Item Value Reference Range Interpretation Comments MAGNESIUM (test code = MAG) 1.8 MG/DL 1.6-2.3 N CBC W/AUTO [id number] 09:23:00 Test Item Value Reference Range Interpretation [...] code = 0.00 K/mm3 0.0-0.1 N NRBC#) [id number] 12:09:00 Test Item Value Reference Range Interpretation [...] VERY HIGH.........>/ = 190 mg/dL BASIC METABOLIC [id number] 07:52:00 Test Item Value Reference Range Interpretation [...] code = 9.4 MG/DL 8.4-10.2 N CA) [id number] 07:52:00 Test Item Value Reference Range Interpretation [...] (test MG/DL 0-99 code = LDL) PROTHROMBIN [id number] 07:46:00 Test Item Value Reference Range Interpretation [...] myocar dial infarction. 2.0 - 3.0 3. Can Line Operator al prosthesis hear t valves, recurre nt systemic emboli sm. 3.0 - 4.5 Comments to Clean Up Supervisor: WILL BRING TO THE LABPTT [id number] 07:46:00 Test Item Value Reference Range Interpretation Comments PTT ACTIVATED (test code = APTT) 25.1 SECONDS 22.0-33.0 N Comments to Clean Up Supervisor: WILL BRING TO THE LABCBC W/AUTO [id number] 07:27:00 Test Item Value Reference Range Interpretation [...] code = 0.00 K/mm3 0.0-0.1 N NRBC#) Notes Date/Time Note Provider Source 2020-06-10 07:05:00-00:00 [facility] ([facility]) Hospitalist Discharge Summary REPORT#:[id number] REPORT STATUS: Signed DATE:06/10/20 TIME: 704 PATIENT: RUTH ANN MONTEJO UNIT #: [id number] ROOM/BED: [address] : 44 AGE: 74 SEX: F ATTEND: Александр Almazan MD ADM AUTHOR: Kari Almazan MD * ALL edits or amendments must be made on the el [employer] [facility]/computer document * PCP PCP PCP: PCP: Undefined Provider Discharge to: home General Information Date of admission: Observation Start Date: Date of admission: 05/27/20 Discharge date: 05/31/20 Discharge diagnosis: - 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 - ANEMIA DUE TO ACUTE BLOOD LOSS. - HYPERKALEMIA, ? etiology. - CKD, stage 3. - ASHD. - HTN. - DM. - CHF DUE TO DIASTOLIC DYSFUNCTION, CHRONIC. - COPD WITHOUT EXACERBATION. - HYPERLIPIDEMIA. - OBESITY. Hospital course: HPI: Patient is a 74-year-old female who is seen in [facility] intensive care unit after surgery. She is somnolent and unable to provide much information. History has been obtained mostly from review of the chart, as well as limited information provided by the patient. She has rolando gstanding history of coronary artery disease as well as DM, HTN, and CHF. She recently underwent arterial Doppler of lower extremities for worsen ing symptoms of claudication. She was noted to have right ankle-brachial index of 0.19 and left of 0.67. She was brought to this facility this m orning to undergo revascularization of lower extremities. 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 She was hypotensive and noted to be a anemic and was nancy en to the OR by Dr. Mario Das on an emergent basis. PLAN and HOSPITAL COURSE: 05/27/2020: - Continue NG tube. - Repeat K stat, and treat if needed. - Hold Lasix, KCL, and Losartan. - Hold Lantus. - Monitor accu checks, and cover with SSI. - Monitor Hgb; continue to transfuse to keep Hgb > 7. 05/28/2020: - Patient receiving 2nd unit of PRBCs; a ccording to the nurse, surgery want to keep Hgb > 9 gms. Will also add IV Fe. - Potassium has been normal. - Oral meds on hold; NG tube to suction. - Continue IV fluids. - PT/OT. - Pain meds prn. - Continue to monitor labs. 05/29- NGT dc'ed. on clear liquids Hgb stable at 8.1 renal functions stable continue with PT/OT 05/30- doing fine. [facility]'ed. has not voided yet. walked with PT earlier. transferred out of the ICU to [facility] 05/31- doing fine. cleared by CVsx for discharge pt home. Consultants: cardiology, cardiovascular surgery Pt. condition on discharge: stable Allergies: Allergies: ciprofloxacin (From CIPRO) (Coded, Intermediate, UNKNOWN, 06/12/18) Med Rec Med Rec Discharge meds: Stop taking the following medications: LOSARTAN (COZAAR) 25 MG TAB 25 MILLIGRAM ORAL DAILY. FUROSEMIDE (LASIX) 40 MG TAB 40 MILLIGRAM ORAL DAILY. POTASSIUM CHLORIDE ER (MICRO-K) 10 MEQ CAP.SA 10 MILLIEQUIVALENT ORAL DAILY. RIVAROXABAN (XARELTO) 10 MG TAB 10 MILLIGRAM ORAL DAILY. Continue taking these medications: CHOLECALCIFEROL (VITAMIN D3) (VITAMIN D3) 1,000 UNIT CAP 1,000 UNITS ORAL DAILY. INSULIN DETEMIR (LEVEMIR) 100 UNIT/ML VIAL 52 UNITS SUBCUTANEOUS TWICE DAILY. Comments: Lantus ATORVASTATIN (LIPITOR) 40 MG TAB 80 MILLIGRAM ORAL DAILY. METOPROLOL SUCC XL (TOPROL XL) 50 MG TAB.SA 50 MILLIGRAM ORAL DAILY. TIOTROPIUM BROMIDE (SPIRIVA RESPIMAT 2.5 MCG/ACT ) 2.5 MCG/ACTUATION INHALER 2 PUFF INHALATION TWICE DAILY. HYDROcodone/APAP (NORCO 7.5/325) 7.5 MG-325 MG T AB 1 TABLET ORAL TWICE DAILY. ISOSORBIDE MONONITRATE SR (IMDUR) 30 MG TAB.SR.2 4H 30 MILLIGRAM ORAL DAILY. MULTIVITAMIN/MIN/IRON/LUTEIN (CENTRUM SILVER ULT RA WOMEN) 1 EACH TAB 1 EACH ORAL DAILY. MONTELUKAST (SINGULAIR) 10 MG TAB 10 MILLIGRAM ORAL DAILY. GABAPENTIN (NEURONTIN) 100 MG CAP 100 MILLIGRAM ORAL DAILY. CINNAMON BARK (CINNAMON) 500 MG CAP 1 CAPSULE ORAL DAILY. CLOPIDOGREL (PLAVIX) 75 MG TAB 75 MILLIGRAM ORAL DAILY. Qty = 30 This prescription has been renewed ASPIRIN EC (ECOTRIN) 81 MG TAB.EC 81 MILLIGRAM ORAL DAILY. Qty = 30 This prescription has been renewed Start taking the following new medications: FERROUS SULFATE (FEOSOL) 325 MG TAB 325 MILLIGRAM ORAL DAILY. Qty = 30 No Refills Discharge Instructions Diet: cardiac Wound/dressing care: LOOK AT [facility] DISCHARGE INSTRUCTIONS Prescriptions: e-prescribe Discharge management: greater than 30 mins, face to face encounter Time spent: >50% spent on counseling/coordination of care: yes Follow-up Appointments PCP: PCP: Undefined Provider Attending Physician: Attending Physician: Kari Almazan MD Consulting provider 1: Provider 1: Radha Salinas MD Specialty: CD Follow up timeframe: In 1-2 weeks Special instructions: PLEASE CALL AND MAKE AN APPOINTMENT Consulting provider 2: Provider 2: Mario Das MD Specialty: Thoracic Surgery Follow up timeframe: In 1-2 weeks Special instructions: PLEASE CALL AND MAKE AN APPOINTMENT Objective Physical Exam General appearance: alert, awake, oriented Head/Eyes: atraumatic, PERRL, pale conjunctivae. ENT: moist mucosal membranes Neck: non-tender, supple/no meningismus Cardiovascular: normal heart sounds, regular rat e rhythm, no pedal edema; pedal pulses not palpable. Respiratory: clear to auscultation, symmetric ex pansion, no distress Abdomen: obese, soft, surgical site covered with dressing; bowel sounds diminished; non-distended; tenderness around willis gical site. Rectal: not indicated Extremities: no clubbing, no cyanosis, no edema Neuro/DIVISIONAL MERCHANDISING MANAGER: oriented X 3, normal speech, generali zed weakness; no focal motor deficits. Psychiatry: easily irritable and agitated. Quality Current Medications Current medication review: I attest that the foregoing medication list in t medical record is true, accurate, and complete to the best of my knowled ge. Advanced Care Plan 65 or Older Discussion included: code status Electronically Signed by Kari Almazan MD on 02/22 at 0718 RPT #:[id number] END OF REPORT 2020-05-31 06:29:00-00:00 [facility] ([facility] Cardiology Progress Note REPORT#:[id number] REPORT STATUS: Signed DATE:05/31/20 TIME: 628 PATIENT: RUTH ANN MONTEJO UNIT #: [id number] ROOM/BED: [address] : 44 AGE: 74 SEX: F ATTEND: Александр Almazan MD ADM AUTHOR: Olegario Rodriguez MD * ALL edits or amendments must be made on the el [facility]/computer document * Subjective Chief Complaint: PVD Patient reports: No: chest pain, palpitations, shortness of breat h. Objective General VS/I O: 24 hour I O ending at 0700: 05/31 0700 05/30 1900 Intake Total 450 150 Output Total Balance 450 150 Intake, Oral 450 150 Number 1 Incontinent Voids Number Voids 2 Vital Signs: Date Time Temp Pulse Resp B/P B/P Pulse O2 O2 F low FiO2 Mean Ox Delivery Rate 05/31 0419 98.4 94 17 107/67 80.3 98 05/30 2330 99.5 100 17 97/63 74.0 96 05/30 1914 98.4 93 18 118/72 86.9 100 Room air 05/30 1545 98.2 97 18 132/63 86.2 99 Room air 05/30 1335 98.2 96 15 109/68 81.7 98 Room air 05/30 1335 98.2 96 15 109/68 81.7 98 Room air 05/30 1300 98 147/63 91 99 05/30 1200 98.3 05/30 1200 97 101/46 66 98 05/30 1100 92 15 129/60 86 96 05/30 1000 91 15 150/65 93 95 05/30 0900 93 161/68 98 96 05/30 0800 97.8 05/30 0800 93 13 158/67 96 97 05/30 0738 Room air 21 05/30 0700 94 9 142/55 79 96 Patient Weight Weight (lb): 194 Weight (oz): 0.11 Weight (kg): 87.997 Medications: Active Meds + DC'd Last 24 Hrs Famotidine 20 MG Q12HR PO (DC) Iron Sucrose 100 MG Q24H IV Sodium Chloride 100 ML Insulin Human Lispro HIGH DOSE SLIDING SCALE Q4HR SUBQ Dextrose/Lactated Ringer's 1,000 ML Q13H IV (DC) Aspirin 81 MG DAILY PO Clopidogrel Bisulfate 75 MG DAILY PO Atorvastatin Calcium 80 MG BEDTIME PO Mupirocin 1 APPLIC BID NASAL Dextrose/Water 12.5 GM ASDIR PRN IV Dextrose/Water 25 GM ASDIR PRN IV Hydralazine HCl 10 MG Q6H PRN PRN IV (DC) Acetaminophen 650 MG Q6H PRN PRN PO Hydrocodone Bitart/Acetaminophen 1 TAB Q6H PRN P RN PO Meperidine HCl 25 MG Q4H PRN PRN IM Cholecalciferol 1,000 UNIT DAILY PO (CKD) Gabapentin 100 MG DAILY PO Isosorbide Mononitrate 30 MG DAILY PO Metoprolol Succinate 50 MG DAILY PO Montelukast Sodium 10 MG DAILY PO Calcium Gluconate 1,000 MG ASDIR PRN IV (DC) Sodium Chloride 100 ML Nicardipine HCl 25 MG ASDIR PRN IV (DC) Sodium Chloride 250 ML Ondansetron HCl 4 MG Q8H PRN PRN IV Physical Exam General appearance: alert, awake, oriented Head/Eyes: atraumatic, normocephalic ENT: moist mucosal membranes Neck: no JVD Cardiovascular: CV assessment: regular rate and rhythm Respiratory: clear to auscultation, no distress Abdomen: soft Lower extremity: LE assessment: no edema Neuro/DIVISIONAL MERCHANDISING MANAGER: alert, oriented X 3, CN II-XII intact Skin: dry, intact Psychiatry: normal affect, normal judgment/insig ht, normal mood Results Findings/Data: Laboratory Tests 05/31 05/30 05/30 05/30 05/30 0420 2331 1927 1632 1321 Chemistry POC Glucose (60 - 99 MG/DL) 202 H 194 H 226 H 2 39 H 220 H 05/30 0858 Chemistry POC Glucose (60 - 99 MG/DL) 285 H Diagnosis, Assessment Plan Free Text DxA P Notes Free Text DxA P Notes: IMP: Severe PVD s/p ADMINISTRATIVE ASSISTANT OFFICE MANAGER Retroperitoneal hematoma s/p hematoma evacuation - recovering well. s/p oversewing of internal iliac artery at site of oozing Chronic systolic heart failure - LVEF 40-44%. Anemia - s/p transfusion. PLAN: Continue current medical rx. PT/OT at 1154 RPT #:[id number] END OF REPORT 2020-05-31 05:17:00-00:00 [id number] [address] PATIENT NAME: RUTH ANN MONTEJO ADMIT ANA E: 05/27/20 ACCOUNT NO: [id number] ROOM NO: Z.[id number] AGE: 74 REPORT TYPE: ELECTROCARDIOGRAM SEX: F ADMITTING PHYSICIAN:Kari Almazan MD ATTENDING PHYSICIAN:Kari Almazan MD Order: [id number] Test Reason : CAD Test Date/Time Stamp: FriMay 31 2020 05:17:58 Blood Pressure : / mmHG Vent. Rate : 088 BPM Atrial Rate : 088 BPM P-R Int : 170 ms QRS Dur : 092 ms QT Int : 344 ms P-R-T Axes : 041 -01 126 degree s QTc Int : 416 ms Normal sinus rhythm with sinus arrhythmia ST and T wave abnormality, consider anterolatera l ischemia Abnormal ECG When compared with ECG of 30-MAY-2020 08:12, Criteria for Anterior infarct are no longer pres ent Confirmed by RADHA SALINAS ([id number]) on 05/31/2020 7:50:58 AM Referred By: Radha Salinas Confirmed by:RADHA LINDSEY at 0751 PATIENT NAME: RUTH ANN MONTEJO 2020-05-30 15:57:00-00:00 [facility] ([facility]) Hospitalist Progress Note REPORT#:[id number] REPORT STATUS: Signed DATE:05/30/20 TIME: 1557 PATIENT: RUTH ANN MONTEJO UNIT #: [id number] ROOM/BED: [address] : 44 AGE: 74 SEX: F ATTEND: Александр Almazan MD ADM AUTHOR: Kari Almazan MD * ALL edits or amendments must be made on the [employer] document * Subjective Chief Complaint: more awake and conversive today. says she feels better Review of Systems GI: Reports: abdominal pain. Denies: constipation, d iarrhea, GERD, nausea, vomiting. Additional notes: Patient uncooperative with providing history or ROS. Objective General VS/I O: Vital Signs: Date Time Temp Pulse Resp B/P B/P Pulse O2 O2 F low FiO2 Mean Ox Delivery Rate 05/30 1545 98.2 97 18 132/63 86.2 99 Room air 05/30 1335 98.2 96 15 109/68 81.7 98 Room air 05/30 1300 98 147/63 91 99 05/30 1200 98.3 05/30 1200 97 101/46 66 98 05/30 1100 92 15 129/60 86 96 05/30 1000 91 15 150/65 93 95 05/30 0900 93 161/68 98 96 05/30 0800 97.8 05/30 0800 93 13 158/67 96 97 05/30 0738 Room air 21 05/30 0700 94 9 142/55 79 96 05/30 0600 97 15 137/63 91 97 05/30 0500 93 17 142/65 93 98 05/30 0400 92 14 127/60 86 98 05/30 0300 93 16 126/58 83 96 05/30 0200 92 19 123/55 79 96 05/30 0100 94 15 118/58 83 95 05/30 0025 95 Room air 05/30 0020 98.9 05/30 0000 98 22 101/49 70 95 05/29 2300 101 7 93/44 63 96 05/29 2200 104 16 108/49 70 95 05/29 2100 100 9 120/52 75 95 05/29 2000 99.0 05/29 2000 103 16 115/48 69 96 05/29 1900 101 13 130/50 72 95 05/29 1841 103 17 96 05/29 1800 98 15 109/47 68 96 05/29 1700 97 13 145/60 86 98 05/29 1600 95 14 89/61 71 97 24 hour I O ending at 0700: 05/30 0700 05/29 1900 Intake Total 1325.00 Output Total 600 850 Balance 725.00 -850 Intake, IV 925.00 Intake, Oral 400 Output, Urine 600 850 Patient Weight Weight (lb): 194 Weight (oz): 0.11 Weight (kg): 87.997 Medications: Active Meds + DC'd Last 24 Hrs Famotidine 20 MG Q12HR PO Iron Sucrose 100 MG Q24H IV Sodium Chloride 100 ML Insulin Human Lispro HIGH DOSE SLIDING SCALE Q4HR SUBQ Dextrose/Lactated Ringer's 1,000 ML Q13H IV (DC) Aspirin 81 MG DAILY PO Clopidogrel Bisulfate 75 MG DAILY PO Atorvastatin Calcium 80 MG BEDTIME PO Mupirocin 1 APPLIC BID NASAL Dextrose/Water 12.5 GM ASDIR PRN IV Dextrose/Water 25 GM ASDIR PRN IV Hydralazine HCl 10 MG Q6H PRN PRN IV (DC) Acetaminophen 650 MG Q6H PRN PRN PO Hydrocodone Bitart/Acetaminophen 1 TAB Q6H PRN P RN PO Meperidine HCl 25 MG Q4H PRN PRN IM Cholecalciferol 1,000 UNIT DAILY PO (CKD) Gabapentin 100 MG DAILY PO Isosorbide Mononitrate 30 MG DAILY PO Metoprolol Succinate 50 MG DAILY PO Montelukast Sodium 10 MG DAILY PO Calcium Gluconate 1,000 MG ASDIR PRN IV (DC) Sodium Chloride 100 ML Nicardipine HCl 25 MG ASDIR PRN IV (DC) Sodium Chloride 250 ML Ondansetron HCl 4 MG Q8H PRN PRN IV Physical Exam General appearance: alert, awake, oriented Head/Eyes: atraumatic, PERRL, pale conjunctivae. ENT: moist mucosal membranes Neck: non-tender, supple/no meningismus Cardiovascular: normal heart sounds, regular rat e rhythm, no pedal edema; pedal pulses not palpable. Respiratory: clear to auscultation, symmetric ex pansion, no distress Abdomen: obese, soft, surgical site covered with dressing; bowel sounds diminished; non-distended; tenderness around willis gical site. Rectal: not indicated Extremities: no clubbing, no cyanosis, no edema Neuro/DIVISIONAL MERCHANDISING MANAGER: oriented X 3, normal speech, generali zed weakness; no focal motor deficits. Psychiatry: easily irritable and agitated. Results Findings/Data: Laboratory Tests 05/30 05/30 05/30 05/29 05/29 1321 0858 0514 2010 162 Chemistry POC Glucose (60 - 99 MG/DL) 220 H 285 H 237 H 2 61 H 275 H Diagnosis, Assessment Plan Free Text DxA P Notes Free text DxA P notes: - 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 - ANEMIA DUE TO ACUTE BLOOD LOSS. - HYPERKALEMIA, ? etiology. - CKD, stage 3. - ASHD. - HTN. - DM. - CHF DUE TO DIASTOLIC DYSFUNCTION, CHRONIC. - COPD WITHOUT EXACERBATION. - HYPERLIPIDEMIA. - OBESITY. PLAN and HOSPITAL COURSE: 05/27/2020: - Continue NG tube. - Repeat K stat, and treat if needed. - Hold Lasix, KCL, and Losartan. - Hold Lantus. - Monitor accu checks, and cover with SSI. - Monitor Hgb; continue to transfuse to keep Hgb > 7. 05/28/2020: - Patient receiving 2nd unit of PRBCs; a ccording to the nurse, surgery want to keep Hgb > 9 gms. Will also add IV Fe. - Potassium has been normal. - Oral meds on hold; NG tube to suction. - Continue IV fluids. - PT/OT. - Pain meds prn. - Continue to monitor labs. 05/29- NGT dc'ed. on clear liquids Hgb stable at 8.1 renal functions stable continue with PT/OT 05/30- doing fine. [facility]a dc'ed. has not voided yet. walked with PT earlier. transferred out of the ICU to [facility] Quality Current Medications Current medication review: I attest that the foregoing medication list in t medical record is true, accurate, and complete to the best of my knowled ge. Electronically Signed by Kari Almazan MD on 02/22 at 0717 RPT #:[id number] END OF REPORT 2020-05-30 14:14:00-00:00 [facility] ([facility]) Cardiology Progress Note REPORT#:[id number] REPORT STATUS: Signed DATE:05/30/20 TIME: 1414 PATIENT: RUTH ANN MONTEJO UNIT #: [id number] ROOM/BED: [address] : 44 AGE: 74 SEX: F ATTEND: Алескандр Almazan MD ADM AUTHOR: Olegario Rodriguez MD * ALL edits or amendments must be made on the [employer]/computer document * Subjective Chief Complaint: PVD Patient reports: No: chest pain, palpitations, shortness of breat h. Objective General VS/I O: 24 hour I O ending at 0700: 05/30 0700 05/29 1900 Intake Total 1325.00 Output Total 600 850 Balance 725.00 -850 Intake, IV 925.00 Intake, Oral 400 Output, Urine 600 850 Vital Signs: Date Time Temp Pulse Resp B/P B/P Pulse O2 O2 F low FiO2 Mean Ox Delivery Rate 05/30 1335 98.2 96 15 109/68 81.7 98 Room air 05/30 1100 92 15 129/60 86 96 05/30 1000 91 15 150/65 93 95 05/30 0900 93 161/68 98 96 05/30 0800 97.8 05/30 0800 93 13 158/67 96 97 05/30 0738 Room air 21 05/30 0700 94 9 142/55 79 96 05/30 0600 97 15 137/63 91 97 05/30 0500 93 17 142/65 93 98 05/30 0400 92 14 127/60 86 98 05/30 0300 93 16 126/58 83 96 05/30 0200 92 19 123/55 79 96 05/30 0100 94 15 118/58 83 95 05/30 0025 95 Room air 05/30 0020 98.9 05/30 0000 98 22 101/49 70 95 05/29 2300 101 7 93/44 63 96 05/29 2200 104 16 108/49 70 95 05/29 2100 100 9 120/52 75 95 05/29 2000 99.0 05/29 2000 103 16 115/48 69 96 05/29 1900 101 13 130/50 72 95 05/29 1841 103 17 96 05/29 1800 98 15 109/47 68 96 05/29 1700 97 13 145/60 86 98 05/29 1600 95 14 89/61 71 97 05/29 1500 93 15 108/46 67 98 Patient Weight Weight (lb): 194 Weight (oz): 0.11 Weight (kg): 87.997 Medications: Active Meds + DC'd Last 24 Hrs Famotidine 20 MG Q12HR PO Iron Sucrose 100 MG Q24H IV Sodium Chloride 100 ML Insulin Human Lispro HIGH DOSE SLIDING SCALE Q4HR SUBQ Dextrose/Lactated Ringer's 1,000 ML Q13H IV (DC) Aspirin 81 MG DAILY PO Clopidogrel Bisulfate 75 MG DAILY PO Atorvastatin Calcium 80 MG BEDTIME PO Mupirocin 1 APPLIC BID NASAL Dextrose/Water 12.5 GM ASDIR PRN IV Dextrose/Water 25 GM ASDIR PRN IV Hydralazine HCl 10 MG Q6H PRN PRN IV (DC) Acetaminophen 650 MG Q6H PRN PRN PO Hydrocodone Bitart/Acetaminophen 1 TAB Q6H PRN P RN PO Meperidine HCl 25 MG Q4H PRN PRN IM Cholecalciferol 1,000 UNIT DAILY PO (CKD) Gabapentin 100 MG DAILY PO Isosorbide Mononitrate 30 MG DAILY PO Metoprolol Succinate 50 MG DAILY PO Montelukast Sodium 10 MG DAILY PO Calcium Gluconate 1,000 MG ASDIR PRN IV (DC) Sodium Chloride 100 ML Nicardipine HCl 25 MG ASDIR PRN IV (DC) Sodium Chloride 250 ML Ondansetron HCl 4 MG Q8H PRN PRN IV Physical Exam General appearance: alert, awake, oriented Head/Eyes: atraumatic, normocephalic ENT: moist mucosal membranes Neck: no JVD Cardiovascular: CV assessment: regular rate and rhythm Respiratory: clear to auscultation, no distress Abdomen: soft Lower extremity: LE assessment: no edema Neuro/DIVISIONAL MERCHANDISING MANAGER: alert, oriented X 3, CN II-XII intact Skin: dry, intact Psychiatry: normal affect, normal judgment/insig ht, normal mood Results Findings/Data: Laboratory Tests 05/30 05/30 05/30 05/29 05/29 1321 0858 0514 2010 1620 Chemistry POC Glucose (60 - 99 MG/DL) 220 H 285 H 237 H 2 61 H 275 H Diagnosis, Assessment Plan Free Text DxA P Notes Free Text DxA P Notes: IMP: Severe PVD s/p ADMINISTRATIVE ASSISTANT OFFICE MANAGER Retroperitoneal hematoma s/p hematoma evacuation s/p oversewing of internal iliac artery at site of oozing Chronic systolic heart failure - LVEF 40-44%. Anemia - s/p transfusion. PLAN: Continue current medical rx. PT/OT at 1154 RPT #:[id number] END OF REPORT 2020-05-30 08:12:00-00:00 [id number] [place] [address] PATIENT NAME: RUTH ANN MONTEJO ADMIT ANA E: 05/27/20 ACCOUNT NO: [id number] ROOM NO: [facility] AGE: 74 REPORT TYPE: ELECTROCARDIOGRAM SEX: F ADMITTING PHYSICIAN:Kari Almazan MD ATTENDING PHYSICIAN:Kari Almazan MD Order: [id number] Test Reason : CAD Test Date/Time Stamp: FriMay 30 2020 08:12:00 Blood Pressure : / mmHG Vent. Rate : 095 BPM Atrial Rate : 095 BPM P-R Int : 182 ms QRS Dur : 092 ms QT Int : 364 ms P-R-T Axes : 069 006 123 degree s QTc Int : 457 ms Normal sinus rhythm Anterior infarct (cited on or before 27-MAY-2020 ) ST and T wave abnormality, consider lateral isch emia Abnormal ECG When compared with ECG of 29-MAY-2020 07:14, Nonspecific T wave abnormality no longer evident in Inferior leads Confirmed by RADHA SALINAS ([id number]) on 05/30/2020 1:36:59 PM Referred By: Kari Almazan Confirmed by:RADHA LINDSEY at 1337 PATIENT NAME: RUTH ANN MONTEJO 2020-05-30 05:54:00-00:00 [facility] ([facility] Cardiology Progress Note REPORT#:[id number] REPORT STATUS: Signed DATE:05/30/20 TIME: 0554 PATIENT: RUTH ANN MONTEJO UNIT #: [id number] ROOM/BED: [address] : 44 AGE: 74 SEX: F ATTEND: Александр Almazan MD ADM AUTHOR: Olegario Rodriguez MD * ALL edits or amendments must be made on the [employer] document * Subjective Chief Complaint: PVD Patient reports: No: chest pain, palpitations, shortness of breat h. Objective General VS/I O: 24 hour I O ending at 0700: 05/30 0700 05/29 1900 Intake Total Output Total 850 Balance -850 Output, Urine 850 Vital Signs: Date Time Temp Pulse Resp B/P B/P Pulse O2 O2 F low FiO2 Mean Ox Delivery Rate 05/30 0100 94 15 118/58 83 95 05/30 0025 95 Room air 05/30 0020 98.9 05/30 0000 98 22 101/49 70 95 05/29 2300 101 7 93/44 63 96 05/29 2200 104 16 108/49 70 95 05/29 2100 100 9 120/52 75 95 05/29 2000 99.0 05/29 2000 103 16 115/48 69 96 05/29 1900 101 13 130/50 72 95 05/29 1841 103 17 96 05/29 1800 98 15 109/47 68 96 05/29 1700 97 13 145/60 86 98 05/29 1600 95 14 89/61 71 97 05/29 1500 93 15 108/46 67 98 05/29 1414 95 12 87/41 59 05/29 1300 102 17 95/47 05/29 1245 99 17 105/50 72 96 05/29 1230 99 16 98 05/29 1215 101 17 99 05/29 1209 101 17 100 05/29 1145 102 98 05/29 1130 97 05/29 1115 103 16 97 05/29 1100 97 16 111/53 76 95 05/29 1054 28 05/29 1000 96 16 112/52 75 95 05/29 0900 98 16 134/61 88 95 05/29 0800 96 15 113/52 75 96 05/29 0700 98.7 05/29 0700 98 15 122/57 82 96 Patient Weight Weight (lb): 194 Weight (oz): 0.11 Weight (kg): 87.997 Medications: Active Meds + DC'd Last 24 Hrs Calcium Gluconate 1,000 MG NOW ONE IV (DC) Sodium Chloride 100 ML Famotidine 20 MG Q12HR PO Iron Sucrose 100 MG Q24H IV Sodium Chloride 100 ML Insulin Human Lispro HIGH DOSE SLIDING SCALE Q4HR SUBQ Dextrose/Lactated Ringer's 1,000 ML Q13H IV Aspirin 81 MG DAILY PO Clopidogrel Bisulfate 75 MG DAILY PO Atorvastatin Calcium 80 MG BEDTIME PO Mupirocin 1 APPLIC BID NASAL Dextrose/Water 12.5 GM ASDIR PRN IV Dextrose/Water 25 GM ASDIR PRN IV Hydralazine HCl 10 MG Q6H PRN PRN IV Acetaminophen 650 MG Q6H PRN PRN PO Hydrocodone Bitart/Acetaminophen 1 TAB Q6H PRN P RN PO Meperidine HCl 25 MG Q4H PRN PRN IM Cholecalciferol 1,000 UNIT DAILY PO (CKD) Gabapentin 100 MG DAILY PO Isosorbide Mononitrate 30 MG DAILY PO Metoprolol Succinate 50 MG DAILY PO (DA) Montelukast Sodium 10 MG DAILY PO Calcium Gluconate 1,000 MG ASDIR PRN IV Sodium Chloride 100 ML Nicardipine HCl 25 MG ASDIR PRN IV Sodium Chloride 250 ML Ondansetron HCl 4 MG Q8H PRN PRN IV Physical Exam General appearance: alert, awake, oriented Head/Eyes: atraumatic, normocephalic ENT: moist mucosal membranes Neck: no JVD Cardiovascular: CV assessment: regular rate and rhythm Respiratory: clear to auscultation, no distress Abdomen: soft Lower extremity: LE assessment: no edema Neuro/DIVISIONAL MERCHANDISING MANAGER: alert, oriented X 3, CN II-XII intact Skin: dry, intact Psychiatry: normal affect, normal judgment/insig ht, normal mood Results Findings/Data: Laboratory Tests 05/29 1252 0835 Chemistry POC Glucose (60 - 99 MG/DL) 261 H 201 H 252 H Diagnosis, Assessment Plan Free Text DxA P Notes Free Text DxA P Notes: IMP: Severe PVD s/p ADMINISTRATIVE ASSISTANT OFFICE MANAGER Retroperitoneal hematoma s/p hematoma evacuation s/p oversewing of internal iliac artery at site of oozing Chronic systolic heart failure - LVEF 40-44%. Anemia - s/p transfusion. PLAN: Continue current medical rx. PT/OT at 1154 RPT #:[id number] END OF REPORT 2020-05-29 20:03:00-00:00 [facility] ([facility]) Hospitalist Progress Note REPORT#:[id number] REPORT STATUS: Signed DATE:05/29/20 TIME: 2002 PATIENT: RUTH ANN MONTEJO UNIT #: [id number] ROOM/BED: [address] : 44 AGE: 74 SEX: F ATTEND: Александр Almazan MD ADM AUTHOR: Kari Almazan MD * ALL edits or amendments must be made on the [employer]/computer document * Subjective Chief Complaint: feeling cold Review of Systems GI: Reports: abdominal pain. Denies: constipation, d iarrhea, GERD, nausea, vomiting. Additional notes: Patient uncooperative with providing history or ROS. Objective General VS/I O: Vital Signs: Date Time Temp Pulse Resp B/P B/P Pulse O2 O2 F low FiO2 Mean Ox Delivery Rate 05/29 1900 101 13 130/50 72 95 05/29 1841 103 17 96 05/29 1800 98 15 109/47 68 96 05/29 1700 97 13 145/60 86 98 05/29 1600 95 14 89/61 71 97 05/29 1500 93 15 108/46 67 98 05/29 1414 95 12 87/41 59 05/29 1300 102 17 95/47 05/29 1245 99 17 105/50 72 96 05/29 1230 99 16 98 08/ 1215 101 17 99 08/ 1209 101 17 100 / 1145 102 98 08/ 1130 97 / 1115 103 16 97 / 1100 97 16 111/53 76 95 08/24 1054 28 08/ 1000 96 16 112/52 75 95 08/24 0900 98 16 134/61 88 95 08/24 0800 96 15 113/52 75 96 /24 0700 98.7 08/24 0700 98 15 122/57 82 96 08/24 0436 99.4 08/ 0400 97 16 106/49 70 95 /24 0345 96 16 95 /24 0330 97 16 95 /24 0315 99 17 95 /24 0300 97 13 100/47 68 95 / 0245 97 16 94 / 0230 96 16 94 / 0215 96 16 95 / 0200 95 16 99/48 69 95 / 0145 97 17 95 / 0130 97 16 94 /24 0115 94 15 95 / 0100 94 15 101/48 69 95 / 0045 95 15 96 / 0030 96 16 96 / 0015 98.9 / 0015 96 15 95 05/29 0000 96 14 96/45 65 96 05/28 2345 97 14 97 05/28 2330 97 14 96 05/28 2315 98 14 97 05/28 2300 98 14 108/49 71 98 05/28 2245 99 14 97 05/28 2230 100 14 97 05/28 2215 101 14 97 05/28 2200 100 14 106/47 66 97 05/28 2145 100 14 96 05/28 2130 101 14 96 05/28 2115 100 14 95 05/28 2108 99 Nasal 2.665937 28 cannula 05/28 2100 101 15 110/53 76 97 05/28 2045 102 16 98 05/28 2030 102 14 98 05/28 2024 102 14 94/45 62 98 05/28 2015 102 14 98 24 hour I O ending at 0700: 05/29 0700 05/28 1900 Intake Total 900.00 1081.61 Output Total 425 350 Balance 475.00 731.61 Intake, Blood 318 Product Intake, IV 550.00 445.61 Intake, 350 318 Packed Cells Output, Urine 425 350 Patient 87.997 kg Weight Patient Weight Weight (lb): 194 Weight (oz): 0.11 Weight (kg): 87.997 Medications: Active Meds + DC'd Last 24 Hrs Calcium Gluconate 1,000 MG NOW ONE IV (DC) Sodium Chloride 100 ML Famotidine 20 MG Q12HR PO Iron Sucrose 100 MG Q24H IV Sodium Chloride 100 ML Insulin Human Lispro HIGH DOSE SLIDING SCALE Q4HR SUBQ Dextrose/Lactated Ringer's 1,000 ML Q13H IV Aspirin 81 MG DAILY PO Clopidogrel Bisulfate 75 MG DAILY PO Atorvastatin Calcium 80 MG BEDTIME PO Mupirocin 1 APPLIC BID NASAL Dextrose/Water 12.5 GM ASDIR PRN IV Dextrose/Water 25 GM ASDIR PRN IV Hydralazine HCl 10 MG Q6H PRN PRN IV Acetaminophen 650 MG Q6H PRN PRN PO Hydrocodone Bitart/Acetaminophen 1 TAB Q6H PRN P RN PO Meperidine HCl 25 MG Q4H PRN PRN IM Cholecalciferol 1,000 UNIT DAILY PO (CKD) Gabapentin 100 MG DAILY PO Isosorbide Mononitrate 30 MG DAILY PO Metoprolol Succinate 50 MG DAILY PO (DA) Montelukast Sodium 10 MG DAILY PO Calcium Gluconate 1,000 MG ASDIR PRN IV Sodium Chloride 100 ML Nicardipine HCl 25 MG ASDIR PRN IV Sodium Chloride 250 ML Ondansetron HCl 4 MG Q8H PRN PRN IV Physical Exam General appearance: awake Head/Eyes: atraumatic, PERRL, pale conjunctivae. ENT: moist mucosal membranes Neck: non-tender, supple/no meningismus Cardiovascular: normal heart sounds, regular rat e rhythm, no pedal edema; pedal pulses not palpable. Respiratory: clear to auscultation, symmetric ex pansion, no distress Abdomen: obese, soft, surgical site covered with dressing; bowel sounds diminished; non-distended; tenderness around willis gical site. Genitourinary: michael Rectal: not indicated Extremities: no clubbing, no cyanosis, no edema Neuro/DIVISIONAL MERCHANDISING MANAGER: oriented X 3, normal speech, generali zed weakness; no focal motor deficits. Psychiatry: easily irritable and agitated. Results Findings/Data: Laboratory Tests 05/29 05/29 05/29 05/29 1252 0835 0420 0142 Chemistry Sodium (137 - 145 MMOL/L) 137 Potassium (3.5 - 5.1 MMOL/L) 4.2 Chloride (98 - 107 MMOL/L) 112 H Carbon Dioxide (22 - 30 MMOL/L) 21 L BUN (7 - 17 MG/DL) 29 H Creatinine (0.52 - 1.04 MG/DL) 1.30 H Glomerular Filtr Rate 40 Glucose (74 - 106 MG/DL) 276 H POC Glucose (60 - 99 MG/DL) 201 H 252 H 255 H Calcium (8.4 - 10.2 MG/DL) 7.5 L Magnesium (1.6 - 2.3 MG/DL) 2.3 Laboratory Tests 05/29 0420 Hematology WBC (3.8 - 9.8 K/MM3) 8.0 RBC (3.58 - 4.97 M/MM3) 2.65 L Hgb (11.2 - 14.9 G/DL) 8.1 L Hct (33.2 - 43.5 %) 24.2 L MCV (80.7 - 99.1 fL) 91 MCH (27.0 - 34.1 pg) 30.6 MCHC (32.2 - 35.7 %) 33.5 RDW (12.1 - 15.2 %) 15.2 Plt Count (129 - 368 K/MM3) 89 L Neut # (Auto) (2.0 - 7.6 K/mm3) 5.04 Lymph # (Auto) (1.0 - 3.8 K/mm3) 0.81 L Greene # (Auto) (0.1 - 0.8 K/mm3) 2.02 H Eos # (Auto) (0.0 - 0.2 K/mm3) 0.01 Baso # (Auto) (0.0 - 0.2 K/mm3) 0.02 Total Counted (#CELLS) 130 Seg Neutrophils % (36.2 - 73.8 %) 76.5 H Band Neutrophils % (0 - 10 %) 6.7 Lymphocytes % (Manual) (12.9 - 45.1 %) 3.4 L Atypical Lymphs % (0 - 0 %) 4.2 H Monocytes % (Manual) (0 - 11 %) 9.2 Nucleated RBC % (0 - 0) 1 H Nucleated RBCs # (Man) (0.0 - 0.1 K/mm3) 0.00 Platelet Estimate (ADEQUATE) DECREASED Plt Morphology Comment (NORMAL) NORMAL Hypochromasia (NONE) SLIGHT Anisocytosis (NONE) SLIGHT Ovalocytes (NONE) FEW Radiology data: Recent Impressions: RADIOLOGY - XR CHEST 1V 05/29 1172 Report Impression - Status: SIGNED Entered: 05/29/2020 9930 IMPRESSION: 1. Interval placement of an endotracheal tube, w ith tip 7.8 cm above the lamont. Advancement by 4 cm is suggested for more optimal positioning. No acute abnormalities seen. 2. Unchanged borderline cardiac silhouette enlar gement, with post surgical changes of previous CABG. 3. Large right apical bulla. Impression By: [email or web address] - Mika Draper MD Diagnosis, Assessment Plan Free Text DxA P Notes Free text DxA P notes: - 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 - ANEMIA DUE TO ACUTE BLOOD LOSS. - HYPERKALEMIA, ? etiology. - CKD, stage 3. - ASHD. - HTN. - DM. - CHF DUE TO DIASTOLIC DYSFUNCTION, CHRONIC. - COPD WITHOUT EXACERBATION. - HYPERLIPIDEMIA. - OBESITY. PLAN and HOSPITAL COURSE: 05/27/2020: - Continue NG tube. - Repeat K stat, and treat if needed. - Hold Lasix, KCL, and Losartan. - Hold Lantus. - Monitor accu checks, and cover with SSI. - Monitor Hgb; continue to transfuse to keep Hgb > 7. 05/28/2020: - Patient receiving 2nd unit of PRBCs; a ccording to the nurse, surgery want to keep Hgb > 9 gms. Will also add IV Fe. - Potassium has been normal. - Oral meds on hold; NG tube to suction. - Continue IV fluids. - PT/OT. - Pain meds prn. - Continue to monitor labs. 05/29- NGT dc'ed. on clear liquids Hgb stable at 8.1 renal functions stable continue with PT/OT Quality Current Medications Current medication review: I attest that the foregoing medication list in [facility] medical record is true, accurate, and complete to the best of my knowled ge. Electronically Signed by Kari Almazan MD on 02/22 at 0717 RPT #:[id number] END OF REPORT 2020-05-29 10:09:00-00:00 [facility] ([facility]) Cardiology Progress Note REPORT#:[id number] REPORT STATUS: Signed DATE:05/29/20 TIME: 1009 PATIENT: RUTH ANN MONTEJO UNIT #: [id number] ROOM/BED: [address] : 44 AGE: 74 SEX: F ATTEND: Humberto Carter MD ADM AUTHOR: Olegario Rodriguez MD * ALL edits or amendments must be made on the [employer] document * Subjective Chief Complaint: PVD Patient reports: Yes: abdominal pain. No: chest pain, palpitation s, shortness of breath. Objective General VS/I O: 24 hour I O ending at 0700: 05/29 0700 05/28 1900 Intake Total 900.00 1081.61 Output Total 425 350 Balance 475.00 731.61 Intake, Blood 318 Product Intake, IV 550.00 445.61 Intake, 350 318 Packed Cells Output, Urine 425 350 Patient 87.997 kg Weight Vital Signs: Date Time Temp Pulse Resp B/P B/P Pulse O2 O2 F low FiO2 Mean Ox Delivery Rate 05/29 0436 99.4 05/29 0400 97 16 106/49 70 95 05/29 0345 96 16 95 05/29 0330 97 16 95 05/29 0315 99 17 95 05/29 0300 97 13 100/47 68 95 05/29 0245 97 16 94 05/29 0230 96 16 94 05/29 0215 96 16 95 05/29 0200 95 16 99/48 69 95 05/29 0145 97 17 95 05/29 0130 97 16 94 05/29 0115 94 15 95 05/29 0100 94 15 101/48 69 95 05/29 0045 95 15 96 05/29 0030 96 16 96 05/29 0015 98.9 05/29 0015 96 15 95 05/29 0000 96 14 96/45 65 96 05/28 2345 97 14 97 05/28 2330 97 14 96 05/28 2315 98 14 97 05/28 2300 98 14 108/49 71 98 05/28 2245 99 14 97 05/28 2230 100 14 97 05/28 2215 101 14 97 05/28 2200 100 14 106/47 66 97 / 2145 100 14 96 / 2130 101 14 96 / 2115 100 14 95 / 2108 99 Nasal 2.132529 28 cannula 05/28 2100 101 15 110/53 76 97 / 2045 102 16 98 / 2030 102 14 98 / 2024 102 14 94/45 62 98 05/28 2015 102 14 98 / 2000 101 15 99 / 1950 98.5 / 1945 95 15 100 / 1930 97 16 98 / 1915 94 15 98 / 1900 97 99 / 1845 99 15 98 / 1830 110 15 98 / 1817 113 14 99 / 1815 98 14 98 / 1800 99 14 98 / 1749 100 14 05/28 1747 101 108/46 67 100 05/28 1745 99 16 99 05/28 1733 100 15 168/110 133 100 05/28 1730 101 15 100 05/28 1722 106 16 162/110 128 100 / 1715 111 31 100 / 1645 96 12 100 / 1637 98.5 96 13 124/47 100 / 1630 96 13 100 05/28 1615 99 14 100 05/28 1602 98.5 102 15 121/47 100 / 1601 104 15 88/46 64 100 / 1600 103 18 100 05/28 1545 101 14 100 05/28 1530 107 15 100 05/28 1522 101 16 100 05/28 1515 107 14 100 05/28 1501 108 13 94/44 64 100 / 1500 106 12 90/42 60 100 / 1445 106 13 100 / 1430 110 15 100 / 1428 113 14 89/45 64 100 / 1418 98.7 99 14 05/28 1415 103 19 100 / 1400 105 15 83/43 58 100 / 1345 99 15 100 / 1344 100 14 83/42 60 100 / 1343 102 14 77/42 57 100 08/ 1331 107 14 87/39 56 100 / 1330 108 15 100 / 1315 94 15 100 / 1300 99 16 81/42 56 100 08/ 1245 108 15 100 05/28 1230 111 14 100 05/28 1215 115 14 100 05/28 1200 105 15 96/46 66 100 05/28 1145 103 15 100 05/28 1130 105 15 100 05/28 1115 101 14 100 05/28 1108 102 16 100 05/28 1100 103 16 94/48 67 100 05/28 1045 103 16 100 05/28 1039 98.3 135 15 111/40 100 05/28 1030 105 16 100 05/28 1015 104 15 100 05/28 1014 98.3 102 16 128/43 100 Patient Weight Weight (lb): 194 Weight (oz): 0.11 Weight (kg): 87.997 Medications: Active Meds + DC'd Last 24 Hrs Famotidine 20 MG Q12HR PO Iron Sucrose 100 MG Q24H IV Sodium Chloride 100 ML Insulin Human Lispro HIGH DOSE SLIDING SCALE Q4HR SUBQ Iron Sucrose 100 MG Q24H IV (DC) Sodium Chloride 100 ML Dextrose/Lactated Ringer's 1,000 ML Q13H IV Magnesium Sulfate 50 ML ONCE ONE IV (DC) Aspirin 81 MG DAILY PO Clopidogrel Bisulfate 75 MG DAILY PO Atorvastatin Calcium 80 MG BEDTIME PO Famotidine 20 MG Q12HR IV (DC) Insulin Human Lispro HIGH DOSE SLIDING SCALE AC HS SUBQ (DC) Mupirocin 1 APPLIC BID NASAL Dextrose/Water 12.5 GM ASDIR PRN IV Dextrose/Water 25 GM ASDIR PRN IV Hydralazine HCl 10 MG Q6H PRN PRN IV Acetaminophen 650 MG Q6H PRN PRN PO Hydrocodone Bitart/Acetaminophen 1 TAB Q6H PRN P RN PO Meperidine HCl 25 MG Q4H PRN PRN IM Cholecalciferol 1,000 UNIT DAILY PO (CKD) Gabapentin 100 MG DAILY PO Isosorbide Mononitrate 30 MG DAILY PO Metoprolol Succinate 50 MG DAILY PO (DA) Montelukast Sodium 10 MG DAILY PO Calcium Gluconate 1,000 MG ASDIR PRN IV Sodium Chloride 100 ML Dextrose/Sodium Chloride 1,000 ML .[id number] IV (D C) Nicardipine HCl 25 MG ASDIR PRN IV Sodium Chloride 250 ML Ondansetron HCl 4 MG Q8H PRN PRN IV Physical Exam General appearance: alert, awake, oriented Head/Eyes: atraumatic, normocephalic ENT: moist mucosal membranes Neck: no JVD Cardiovascular: CV assessment: regular rate and rhythm Respiratory: clear to auscultation, no distress Abdomen: soft Lower extremity: LE assessment: no edema Neuro/DIVISIONAL MERCHANDISING MANAGER: alert, oriented X 3, CN II-XII intact Skin: dry, intact Psychiatry: normal affect, normal judgment/insig ht, normal mood Results Findings/Data: Laboratory Tests 05/29 05/29 05/29 05/28 05/28 0835 0420 0142 1958 1611 Chemistry Sodium (137 - 145 MMOL/L) 137 Potassium (3.5 - 5.1 MMOL/L) 4.2 Chloride (98 - 107 MMOL/L) 112 H Carbon Dioxide (22 - 30 MMOL/L) 21 L BUN (7 - 17 MG/DL) 29 H Creatinine (0.52 - 1.04 MG/DL) 1.30 H Glomerular Filtr Rate 40 Glucose (74 - 106 MG/DL) 276 H POC Glucose (60 - 99 MG/DL) 252 H 255 H 240 H 2 46 H Calcium (8.4 - 10.2 MG/DL) 7.5 L Magnesium (1.6 - 2.3 MG/DL) 2.3 05/28 05/28 1510 1137 Chemistry Potassium (3.5 - 5.1 MMOL/L) 4.7 POC Glucose (60 - 99 MG/DL) 293 H Laboratory Tests 05/29 05/28 0420 1510 Hematology WBC (3.8 - 9.8 K/MM3) 8.0 RBC (3.58 - 4.97 M/MM3) 2.65 L Hgb (11.2 - 14.9 G/DL) 8.1 L 8.1 L Hct (33.2 - 43.5 %) 24.2 L MCV (80.7 - 99.1 fL) 91 MCH (27.0 - 34.1 pg) 30.6 MCHC (32.2 - 35.7 %) 33.5 RDW (12.1 - 15.2 %) 15.2 Plt Count (129 - 368 K/MM3) 89 L Neut # (Auto) (2.0 - 7.6 K/mm3) 5.04 Lymph # (Auto) (1.0 - 3.8 K/mm3) 0.81 L Greene # (Auto) (0.1 - 0.8 K/mm3) 2.02 H Eos # (Auto) (0.0 - 0.2 K/mm3) 0.01 Baso # (Auto) (0.0 - 0.2 K/mm3) 0.02 Total Counted (#CELLS) 130 Seg Neutrophils % (36.2 - 73.8 %) 76.5 H Band Neutrophils % (0 - 10 %) 6.7 Lymphocytes % (Manual) (12.9 - 45.1 %) 3.4 L Atypical Lymphs % (0 - 0 %) 4.2 H Monocytes % (Manual) (0 - 11 %) 9.2 Nucleated RBC % (0 - 0) 1 H Nucleated RBCs # (Man) (0.0 - 0.1 K/mm3) 0.00 Platelet Estimate (ADEQUATE) DECREASED Plt Morphology Comment (NORMAL) NORMAL Hypochromasia (NONE) SLIGHT Anisocytosis (NONE) SLIGHT Ovalocytes (NONE) FEW Laboratory Tests 05/29 0420 Chemistry Magnesium (1.6 - 2.3 MG/DL) 2.3 Radiology data: Recent Impressions: RADIOLOGY - XR CHEST 1V 05/29 1977 Report Impression - Status: SIGNED Entered: 05/29/2020 0751 IMPRESSION: 1. Interval placement of an endotracheal tube, with tip 7.8 cm above the lamont. Advancement by 4 cm is suggested for more optimal positioning. No acute abnormalities seen. 2. Unchanged borderline cardiac silhouette enlar gement, with post surgical changes of previous CABG. 3. Large right apical bulla. Impression By: [email or web address] - Mika Draper MD Diagnosis, Assessment Plan Free Text DxA P Notes Free Text DxA P Notes: IMP: Severe PVD s/p ADMINISTRATIVE ASSISTANT OFFICE MANAGER Retroperitoneal hematoma s/p hematoma evacuation s/p oversewing of internal iliac artery at site of oozing Chronic systolic heart failure - LVEF 40-44%. Anemia - s/p transfusion. PLAN: Continue current medical rx. Follow H/H closely. at 1240 RPT #:[id number] END OF REPORT 2020-05-29 07:14:00-00:00 [phone] [address] PATIENT NAME: RUTH ANN MONTEJO ADMIT ANA E: 05/27/20 ACCOUNT NO: [id number] ROOM NO: Z.SI12 AGE: 74 REPORT TYPE: ELECTROCARDIOGRAM SEX: F ADMITTING PHYSICIAN:Humberto Carter MD ATTENDING PHYSICIAN:Humberto Carter MD Order: [id number] Test Reason : CAD Test Date/Time Stamp: FriMay 29 2020 07:14:43 Blood Pressure : / mmHG Vent. Rate : 097 BPM Atrial Rate : 097 BPM P-R Int : 182 ms QRS Dur : 090 ms QT Int : 338 ms P-R-T Axes : 053 -01 171 degree s QTc Int : 429 ms Normal sinus rhythm Anterior infarct (cited on or before 27-MAY-2020 ) ST and T wave abnormality, consider lateral isch emia Abnormal ECG When compared with ECG of 28-MAY-2020 08:42, No significant change was found Confirmed by RADHA SALINAS ([id number]) on 05/29/2020 10:12:03 AM Referred By: Humberto Carter Confirmed by:RADHA SALAZAR at 1012 PATIENT NAME: RUTH ANN MONTEJO 2020-05-28 19:47:00-00:00 [phone] [address] PATIENT NAME: RUTH ANN MONTEJO ADMIT DA TE: 05/27/20 ACCOUNT NO: [id number] ROOM NO: Z.358 AGE: 74 REPORT TYPE: PROGRESS NOTE SEX: F ADMITTING PHYSICIAN:Kair Almazan MD ATTENDING PHYSICIAN:Kari Almazan MD DATE: 05/28/2020 CARDIAC SURGERY SERVICE The patient is seen at the [facility] in the ICU. The patient currently is stable. Vital signs are stable. The patient was given a transfusion with 1 packed cell for a hemoglobin little over 7 this morn ing, now at 8.1 after transfusion of 1 pack, so receiving a second transfusion. The pat ient is being getting up and ambulating, the patient is making appropriate pr ogress. Dictated By: Mario Das MD WT: PN:ZKeithKARON/PEREZ/EVA Conf#: [id number]/DID#: [id number] Authenticated by Mario Das MD On 020 03:37:26 PM at 1537 PATIENT NAME: RUTH ANN MONTEJO 2020-05-28 17:23:00-00:00 [facility] ([facility]) Hospitalist Progress Note REPORT#:[id number] REPORT STATUS: Signed DATE:05/28/20 TIME: 1723 PATIENT: RUTH ANN MONTEJO UNIT #: [id number] ROOM/BED: [address] : 44 AGE: 74 SEX: F ATTEND: Humberto Carter MD ADM AUTHOR: Humberto Carter MD * ALL edits or amendments must be made on the [employer] document * Subjective Chief Complaint: Patient seen in ICU; not alexis y pleasant or co-operative. Does not want to answer questions. Reports pain in the right mid abdomen , at the surgical site. Also reports discomfort due to the NG tube. Review of Systems GI: Reports: abdominal pain. Denies: constipation, d iarrhea, GERD, nausea, vomiting. Additional notes: Patient uncooperative with providing history or ROS. Objective General VS/I O: Vital Signs: Date Time Temp Pulse Resp B/P B/P Pulse O2 O2 F low FiO2 Mean Ox Delivery Rate 05/28 1637 98.5 96 13 124/47 100 05/28 1602 98.5 102 15 121/47 100 05/28 1522 101 16 100 05/28 1515 107 14 100 05/28 1501 108 13 94/44 64 100 05/28 1500 106 12 90/42 60 100 05/28 1445 106 13 100 05/28 1430 110 15 100 05/28 1428 113 14 89/45 64 100 05/28 1418 98.7 99 14 05/28 1415 103 19 100 08/23 1400 105 15 83/43 58 100 08/ 1345 99 15 100 08/ 1343 102 14 77/42 57 100 08/ 1331 107 14 87/39 56 100 08/ 1330 108 15 100 08/ 1315 94 15 100 08/23 1300 99 16 81/42 56 100 08/ 1245 108 15 100 08/ 1230 111 14 100 08/ 1215 115 14 100 08/ 1200 105 15 96/46 66 100 08/ 1145 103 15 100 08/ 1130 105 15 100 / 1115 101 14 100 / 1108 102 16 100 08/ 1100 103 16 94/48 67 100 08/ 1045 103 16 100 08/ 1039 98.3 135 15 111/40 100 / 1030 105 16 100 / 1015 104 15 100 / 1014 98.3 102 16 128/43 100 / 1000 105 16 91/45 62 100 / 0945 103 15 100 / 0930 103 15 100 / 0915 102 15 100 / 0900 99 15 106/49 70 100 / 0845 118 16 100 / 0830 115 14 100 / 0815 114 16 100 /23 0800 100 Nasal 28 cannula 05/28 0800 116 16 103/49 70 100 / 0745 113 16 100 / 0730 112 15 100 / 0717 Nasal 2.912773 cannula / 0715 115 15 100 / 0713 98.3 / 0700 117 15 110/52 75 100 / 0645 114 15 100 / 0630 111 14 100 / 0615 109 15 100 08/23 0600 113 15 106/51 74 100 08/23 0545 96 14 100 08/23 0530 96 14 100 08/23 0515 98 15 100 08/23 0500 98 15 105/53 75 100 08/ 0445 96 14 100 08/ 0430 99 15 100 08/ 0415 98 16 100 08/ 0400 98.1 08/ 0400 98 15 107/50 72 100 08/23 0345 99 16 100 08/23 0330 100 15 100 08/23 0315 97 15 100 08/23 0300 96 15 119/51 74 100 08/ 0245 95 17 100 08/ 0230 94 15 100 08/ 0215 92 15 100 08/ 0200 91 16 113/53 76 100 08/ 0145 89 15 100 / 0130 89 15 100 / 0115 89 14 100 / 0100 90 16 116/53 77 100 08/ 0045 91 14 100 / 0030 92 13 100 / 0015 91 15 100 / 0000 98.1 05/28 0000 92 14 112/56 80 100 / 2345 91 14 100 / 2330 92 14 100 / 2315 91 14 100 / 2300 92 15 113/56 80 100 / 2245 90 18 100 05/27 2230 91 15 100 05/27 2215 89 15 100 05/27 2200 88 14 102/50 72 100 05/27 2145 89 14 100 05/27 2130 91 17 100 05/27 2115 94 20 05/27 2100 86 16 105/45 65 100 05/275 87 15 100 05/27 2030 85 15 100 05/27 2020 85 15 111/46 67 100 05/27 2015 92 14 100 05/27 2000 86 15 100 05/27 1950 Nasal 2.904315 28 cannula 05/27 1945 80 13 100 05/27 1940 97.1 05/27 1930 79 15 100 05/27 1915 80 13 100 05/27 1900 79 14 100 24 hour I O ending at 0700: 05/28 0700 05/27 1900 Intake Total 1040.00 Output Total 650 100 Balance 390.00 -100 Intake, IV 1040.00 Number 1 Bowel Movements Output, Urine 650 100 Patient 194 lb Weight Weight Bed scale Measurement Method Patient Weight Weight (lb): 194 Weight (oz): 0.11 Weight (kg): 88.000 Medications: Active Meds + DC'd Last 24 Hrs Famotidine 20 MG Q12HR PO Iron Sucrose 100 MG Q24H IV Sodium Chloride 100 ML Insulin Human Lispro HIGH DOSE SLIDING SCALE Q4HR SUBQ Iron Sucrose 100 MG Q24H IV (DC) Sodium Chloride 100 ML Dextrose/Lactated Ringer's 1,000 ML Q13H IV Magnesium Sulfate 50 ML ONCE ONE IV (DC) Aspirin 81 MG DAILY PO Clopidogrel Bisulfate 75 MG DAILY PO Dextrose/Water 25 GM ONCE ONE IV (DC) Insulin Human Regular 10 UNIT ONCE ONE IV (DC) Sodium Polystyrene Sulfonate 30 GM ONCE ONE PO ( DC) Insulin Human Regular 10 UNIT ONCE ONE IV (CAN) Undefined Medication 1 EA Atorvastatin Calcium 80 MG BEDTIME PO Famotidine 20 MG Q12HR IV (DC) Insulin Glargine 52 UNITS BID SUBQ (CAN) Insulin Human Lispro HIGH DOSE SLIDING SCALE AC HS SUBQ (DC) Mupirocin 1 APPLIC BID NASAL Dextrose/Water 12.5 GM ASDIR PRN IV Dextrose/Water 25 GM ASDIR PRN IV Hydralazine HCl 10 MG Q6H PRN PRN IV Acetaminophen 650 MG Q6H PRN PRN PO Hydrocodone Bitart/Acetaminophen 1 TAB Q6H PRN P RN PO Meperidine HCl 25 MG Q4H PRN PRN IM Cefazolin Sodium 1,000 MG Q8H IV (DC) Sodium Chloride 10 ML Cholecalciferol 1,000 UNIT DAILY PO (CKD) Furosemide 40 MG DAILY PO (DC) Gabapentin 100 MG DAILY PO Isosorbide Mononitrate 30 MG DAILY PO Losartan Potassium 25 MG DAILY PO (DC) Metoprolol Succinate 50 MG DAILY PO (DA) Montelukast Sodium 10 MG DAILY PO Potassium Chloride 10 MEQ DAILY PO (DC) Acetaminophen 650 MG Q4H PRN PRN PO (DC) Calcium Gluconate 1,000 MG ASDIR PRN IV Sodium Chloride 100 ML Dextrose/Sodium Chloride 1,000 ML .[id number] IV (D C) Nicardipine HCl 25 MG ASDIR PRN IV Sodium Chloride 250 ML Ondansetron HCl 4 MG Q8H PRN PRN IV Physical Exam General appearance: awake, oriented, no acute di stress Head/Eyes: atraumatic, PERRL, pale conjunctivae. ENT: NGT, moist mucosal membranes Neck: non-tender, supple/no meningismus Cardiovascular: normal heart sounds, regular rat e rhythm, no pedal edema; pedal pulses not palpable. Respiratory: clear to auscultation, symmetric ex pansion, no distress Abdomen: obese, soft, surgical site covered with dressing; bowel sounds diminished; non-distended; tenderness around willis gical site. Genitourinary: michael Rectal: not indicated Extremities: no clubbing, no cyanosis, no edema Neuro/DIVISIONAL MERCHANDISING MANAGER: oriented X 3, normal speech, generali zed weakness; no focal motor deficits. Psychiatry: easily irritable and agitated. Results Findings/Data: Laboratory Tests 05/28 05/28 05/28 05/28 05/27 1510 1137 0727 0605 2356 Chemistry Sodium (137 - 145 MMOL/L) 137 137 Potassium (3.5 - 5.1 MMOL/L) 4.7 5.0 5.6 H Chloride (98 - 107 MMOL/L) 111 H 111 H Carbon Dioxide (22 - 30 MMOL/L) 20 L 18 L Anion Gap (14 - 24 MMOL/L) 11 L 14 BUN (7 - 17 MG/DL) 26 H 26 H Creatinine (0.52 - 1.04 MG/DL) 1.30 H 1.20 H Glomerular Filtr Rate 40 44 Glucose (74 - 106 MG/DL) 312 *H 277 H POC Glucose (60 - 99 MG/DL) 293 H 279 H Calcium (8.4 - 10.2 MG/DL) 7.8 L 7.5 L Magnesium (1.6 - 2.3 MG/DL) 1.6 05/27 1900 Chemistry Sodium (137 - 145 MMOL/L) 139 Potassium (3.5 - 5.1 MMOL/L) 5.8 H Chloride (98 - 107 MMOL/L) 112 H Carbon Dioxide (22 - 30 MMOL/L) 17 L Anion Gap (14 - 24 MMOL/L) 16 BUN (7 - 17 MG/DL) 25 H Creatinine (0.52 - 1.04 MG/DL) 1.30 H Glomerular Filtr Rate 40 Glucose (74 - 106 MG/DL) 220 H POC Glucose (60 - 99 MG/DL) 222 H Calcium (8.4 - 10.2 MG/DL) 7.8 L Laboratory Tests 05/28 05/28 05/28 05/27 1510 [id number] Hematology WBC (3.8 - 9.8 K/MM3) 7.8 RBC (3.58 - 4.97 M/MM3) 2.48 L Hgb (11.2 - 14.9 G/DL) 8.1 L 7.4 L 7.6 L 8.2 L Hct (33.2 - 43.5 %) 23.0 L 23.0 L MCV (80.7 - 99.1 fL) 93 MCH (27.0 - 34.1 pg) 30.6 MCHC (32.2 - 35.7 %) 33.0 RDW (12.1 - 15.2 %) 13.8 Plt Count (129 - 368 K/MM3) 105 L Neut # (Auto) (2.0 - 7.6 K/mm3) 5.38 Lymph # (Auto) (1.0 - 3.8 K/mm3) 0.50 L Greene # (Auto) (0.1 - 0.8 K/mm3) 1.67 H Eos # (Auto) (0.0 - 0.2 K/mm3) 0.02 Baso # (Auto) (0.0 - 0.2 K/mm3) 0.02 Total Counted (#CELLS) 130 Seg Neutrophils % (36.2 - 73.8 %) 66.4 Band Neutrophils % (0 - 10 %) 20.2 H Lymphocytes % (Manual) (12.9 - 45.1 %) 5.0 L Atypical Lymphs % (0 - 0 %) 1.7 H Monocytes % (Manual) (0 - 11 %) 5.9 Basophils % (Manual) (0 - 2 %) 0.8 Nucleated RBCs # (Man) (0.0 - 0.1 K/mm3) 0.00 Platelet Estimate (ADEQUATE) DECREASED Plt Morphology Comment (NORMAL) NORMAL Poikilocytosis (NONE) FEW Anisocytosis (NONE) SLIGHT Ovalocytes (NONE) FEW Radiology data: Recent Impressions: RADIOLOGY - XR CHEST 1V 05/28 1975 Report Impression - Status: SIGNED Entered: 05/28/2020 4127 IMPRESSION: No significant interval change. Impression By: [email or web address] - Adrianna Carrasquillo MD Results: labs reviewed, chet l signs stable, rhythm personally rev'd, current med profile rev'd Diagnosis, Assessment Plan Free Text DxA P Notes Free text DxA P notes: - 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 - ANEMIA DUE TO ACUTE BLOOD LOSS. - HYPERKALEMIA, ? etiology. - CKD, stage 3. - ASHD. - HTN. - DM. - CHF DUE TO DIASTOLIC DYSFUNCTION, CHRONIC. - COPD WITHOUT EXACERBATION. - HYPERLIPIDEMIA. - OBESITY. PLAN and HOSPITAL COURSE: 05/27/2020: - Continue NG tube. - Repeat K stat, and treat if needed. - Hold Lasix, KCL, and Losartan. - Hold Lantus. - Monitor accu checks, and cover with SSI. - Monitor Hgb; continue to transfuse to keep Hgb > 7. 05/28/2020: - Patient receiving 2nd unit of PRBCs; a ccording to the nurse, surgery want to keep Hgb > 9 gms. Will also add IV Fe. - Potassium has been normal. - Oral meds on hold; NG tube to suction. - Continue IV fluids. - PT/OT. - Pain meds prn. - Continue to monitor labs. Quality Current Medications Current medication review: I attest that the foregoing medication list in [facility] medical record is true, accurate, and complete to the best of my knowled ge. Electronically Signed by Humberto Carter MD on 05/28 at 1751 RPT #:[id number] END OF REPORT 2020-05-28 09:55:00-00:00 [id number] [place] [address] PATIENT NAME: RUTH ANN MONTEJO ADMIT ANA E: 05/27/20 ACCOUNT NO: [id number] ROOM NO: [facility] AGE: 74 REPORT TYPE: ECHOCARDIOGRAM SEX: F ADMITTING PHYSICIAN:Humberto Carter MD ATTENDING PHYSICIAN:Humberto Carter MD *[facility]* [address] [place], [place] [id number] Transthoracic Echocardiogram Patient: Ruth Ann Montejo Study Date: 05/28/2020 BP: 110 / 52 Location: [facility] URN: [id number] : 1945 Age: 74 Height: 62 in / 157.5 cm Gender: F Weight: 193 .6 lb / 88 kg BMI/BSA: 35.5 kg/m 2 / 2 m 2 *Ordering Physician: * Radha Salinas MD *Interpreting Physician: * Radha Salinas MD *Rn Spine: * Denise Jones RDCS, T Indications: CAD/CMP. Study data: Transthoracic echocardiogram. Proced ure: Transthoracic echocardiography was performed. Images were obta ined using a [employer] cardiac ultrasound machine. Image quality was adequate. The study was technically limited due to poor acoustic window availability. Complete 2D, complete spectral Doppler, and color Doppler . Location: SICU Patient status: Inpatient. Patient room number: 12. Study status: Routine. Findings Left ventricle: The cavity size is normal. Wall thickness is mildly increased. Systolic function is mildly reduced. The estimated ejection fraction is 40-44%. Regional wall motion abnorma lities: Akinesis of PATIENT NAME: RUTH ANN MONTEJO the mid anterolateral and apical lateral myocard ium. Left ventricular diastolic function parameters are indeterminate. Right ventricle: The cavity size is normal. Syst olic function is normal. Ventricular septum: Thickness is mildly increase d. Left atrium: The atrium is normal in size. Right atrium: Not well visualized. Atrial septum: No defect or patent foramen ovale is identified. Aorta: The aortic root is not dilated. Aortic valve: The valve is structurally normal. The valve is trileaflet. Cusp separation is normal. Transvalv ular velocity is within the normal range. There is no evidence of stenosis. There is no regurgitation. Mitral valve: The valve is structurally normal. There is no evidence of stenosis. There is no regurgitation. Tricuspid valve: Not well visualized. There is n o evidence of stenosis. There is no significant regurgitation. Pulmonic valve: Not well visualized. Systemic veins: Inferior vena cava: Not well visualized. Measurements Left ventricle Value Ref Left atrium Value Ref SHAHIDA, LAX 5.0 cm 3.8 - AP dim, ES 2.79 cm 2.70 - 3.80 5.2 AP dim, ES MM 3.4 cm 2.7 - 3.8 ESD, LAX 4.0 cm 2.2 - LA/Ao root ratio, MM 1.18 3.5 ESD/bsa, LAX 2.0 cm/m 2 1.3 - Aortic valve Value Ref 2.1 Leaflet sep, MM 1.96 cm FS, LAX 20 % 27 - 45 Peak v, S 1.4 m/sec ESD/bsa major ax, 3.0 cm/m 2 ------- Mean v, S 0.98 m/sec A4C VTI, S 24.6 cm SHAHIDA/bsa minor ax, 3.0 cm/m 2 ------- Mean grad , S 4.3 mm Hg A4C Peak grad, S 7.8 mm Hg SHAHIDA major ax, A2C 7.3 cm ------- LVOT/AV, VTI r atio 0.7 ESD major ax, A2C 5.4 cm ------- CEZAR, VTI 2.11 cm 2 SHAHIDA/bsa major ax, 3.6 cm/m 2 ------- LVOT/AV, V peak ratio 0.61 A2C CEZAR, Vmax PATIENT NAME: RUTH ANN MONTEJO 1.84 cm 2 ESD/bsa major ax, 2.7 cm/m 2 ------- A2C Mitral valve Value Ref PW, ED 1.3 cm 0.6 - Peak E 1.08 m/sec 0.9 Peak A 1.5 m/sec PW, ES 1.3 cm ------- Mean v, D 0.94 m/sec IVS/PW, ED 0.99 ------- VTI leaflet coapt 21.8 cm EF 41 % 54 - 74 Decel time 99 ms PHT 33 ms LVOT Value Ref Mean grad, D 3.9 mm Hg Diam, S 1.96 cm ------- Peak grad, D 8.4 mm Hg Area 3.0 cm 2 ------- Peak E/A ratio 0.72 Peak diogenes, S 0.86 m/sec ------- MVA, PHT 6.7 cm 2 Mean diogenes, S 0.56 m/sec ------- VTI, S 17.3 cm ------- Pulmonic valve Value Ref Peak grad, S 3 mm Hg ------- NV v, ED 1.15 m/sec Mean grad, S 1 mm Hg ------- NV grad, ED 5 mm Hg SV 52 ml ------- Qs 6 L/min ------- Aortic root Value Ref Qs/bsa 3 L/(min-m 2) ------- Root diam, ED MM 2.88 cm SV/bsa 26 ml/m 2 ------- Ventricular septum Value Ref IVS, ED 1.2 cm 0.6 - 0.9 IVS, ES 1.5 cm ------- Right ventricle Value Ref SHAHIDA, LAX 2.4 cm ------- Conclusions Summary: 1. Left ventricle: The cavity size is normal. Wa ll thickness is mildly increased. Systolic function is mildly reduced. The estimated ejection fraction is 40-44%. Left ventricular d iastolic function PATIENT NAME: RUTH ANN MONTEJO parameters are indeterminate. 2. Regional wall motion abnormality: Akinesis of the mid anterolateral and apical lateral myocardium. Impressions: The study was technically limited d ue to poor acoustic window availability. Prepared and electronically signed by Radha Salinas MD 05/28/2020 09:55 at 0955 PATIENT NAME: RUTH ANN MONTEJO 2020-05-28 09:08:00-00:00 [facility] ([facility] Cardiology Progress Note REPORT#:[id number] REPORT STATUS: Signed DATE:05/28/20 TIME: 907 PATIENT: RUTH ANN MONTEJO UNIT #: [id number] [address]/BED: [address] : [address] AGE: 74 SEX: F ATTEND: Jerry Carter MD ADM AUTHOR: Olegario Rodriguez MD * ALL edits or amendments must be made on the el [employer]/computer document * Subjective Chief Complaint: PVD Patient reports: No: chest pain, palpitations, shortness of breat h. Objective General VS/I O: 24 hour I O ending at 0700: 05/28 0700 05/27 1900 Intake Total 1040.00 Output Total 650 100 Balance 390.00 -100 Intake, IV 1040.00 Number 1 Bowel Movements Output, Urine 650 100 Patient 88 kg Weight Weight Bed scale Measurement Method Vital Signs: Date Time Temp Pulse Resp B/P B/P Pulse O2 O2 F low FiO2 Mean Ox Delivery Rate 05/28 0717 Nasal 2.666775 cannula 05/28 0715 115 15 100 05/28 0713 98.3 05/28 0700 117 15 110/52 75 100 05/28 0645 114 15 100 05/28 0630 111 14 100 05/28 0615 109 15 100 05/28 0600 113 15 106/51 74 100 05/28 0545 96 14 100 05/28 0530 96 14 100 05/28 0515 98 15 100 05/28 0500 98 15 105/53 75 100 05/28 0445 96 14 100 05/28 0430 99 15 100 05/28 0415 98 16 100 05/28 0400 98.1 05/28 0400 98 15 107/50 72 100 05/28 0345 99 16 100 05/28 0330 100 15 100 05/28 0315 97 15 100 05/28 0300 96 15 119/51 74 100 05/28 0245 95 17 100 05/28 0230 94 15 100 05/28 0215 92 15 100 05/28 0200 91 16 113/53 76 100 05/28 0145 89 15 100 05/28 0130 89 15 100 05/28 0115 89 14 100 05/28 0100 90 16 116/53 77 100 05/28 0045 91 14 100 05/28 0030 92 13 100 05/28 0015 91 15 100 05/28 0000 98.1 05/28 0000 92 14 112/56 80 100 / 2345 91 14 100 05/27 2330 92 14 100 05/27 2315 91 14 100 05/27 2300 92 15 113/56 80 100 05/27 2245 90 18 100 05/27 2230 91 15 100 05/27 2215 89 15 100 08 2200 88 14 102/50 72 100 05/27 2145 89 14 100 08/22 2130 91 17 100 05/275 94 20 05/27 2100 86 16 105/45 65 100 05/275 87 15 100 05/27 2030 85 15 100 05/27 2020 85 15 111/46 67 100 05/27 2015 92 14 100 05/27 2000 86 15 100 05/27 1950 Nasal 2.040382 28 cannula 05/27 1945 80 13 100 05/27 1940 97.1 05/27 1930 79 15 100 05/27 1915 80 13 100 05/27 1900 79 14 100 05/27 1600 Nasal 2.715264 cannula 05/27 1545 98.5 Patient Weight Weight (lb): 194 Weight (oz): 0.11 Weight (kg): 88.000 Medications: Active Meds + DC'd Last 24 Hrs Aspirin 81 MG DAILY PO Clopidogrel Bisulfate 75 MG DAILY PO Dextrose/Water 25 GM ONCE ONE IV (DC) Insulin Human Regular 10 UNIT ONCE ONE IV (DC) Sodium Polystyrene Sulfonate 30 GM ONCE ONE PO ( DC) Insulin Human Regular 10 UNIT ONCE ONE IV (CAN) Undefined Medication 1 EA Atorvastatin Calcium 80 MG BEDTIME PO Famotidine 20 MG Q12HR IV Insulin Glargine 52 UNITS BID SUBQ (CAN) Insulin Human Lispro HIGH DOSE SLIDING SCALE AC HS SUBQ Mupirocin 1 APPLIC BID NASAL Dextrose/Water 12.5 GM ASDIR PRN IV Dextrose/Water 25 GM ASDIR PRN IV Hydralazine HCl 10 MG Q6H PRN PRN IV Acetaminophen 650 MG Q6H PRN PRN PO Hydrocodone Bitart/Acetaminophen 1 TAB Q6H PRN PRN PO Meperidine HCl 25 MG Q4H PRN PRN IM Cefazolin Sodium 1,000 MG Q8H IV (DC) Sodium Chloride 10 ML Cholecalciferol 1,000 UNIT DAILY PO (CKD) Furosemide 40 MG DAILY PO (DC) Gabapentin 100 MG DAILY PO Isosorbide Mononitrate 30 MG DAILY PO Losartan Potassium 25 MG DAILY PO (DC) Metoprolol Succinate 50 MG DAILY PO (DA) Montelukast Sodium 10 MG DAILY PO Potassium Chloride 10 MEQ DAILY PO (DC) Acetaminophen 650 MG Q4H PRN PRN PO (DC) Calcium Gluconate 1,000 MG ASDIR PRN IV Sodium Chloride 100 ML Dextrose/Sodium Chloride 1,000 ML .[id number] IV Nicardipine HCl 25 MG ASDIR PRN IV Sodium Chloride 250 ML Ondansetron HCl 4 MG Q8H PRN PRN IV Fentanyl Citrate 0 .STK-MED ONE .ROUTE (DC) Sugammadex Sodium 0 .STK-MED ONE .ROUTE (DC) Insulin Human Regular 0 .STK-MED ONE .ROUTE (DC) Fentanyl Citrate 0 .STK-MED ONE .ROUTE (DC) Heparin Sodium/Sodium Chloride 500 ML .STK-MED O NE IV (DC) Nicardipine HCl 250 ML .STK-MED ONE IV (DC) Phenylephrine HCl 100 ML .STK-MED ONE IV (DC) Gentamicin Sulfate 0 .STK-MED ONE .ROUTE (DC) Albumin Human 500 ML .STK-MED ONE IV (DC) Norepinephrine Bitartrate 0 .STK-MED ONE .ROUTE (DC) Phenylephrine HCl 0 .STK-MED ONE IV (DC) Sodium Chloride 200 ML .STK-MED ONE IV (DC) Epinephrine 250 ML .STK-MED ONE IV (DC) Sodium Chloride 250 ML .STK-MED ONE IV (DC) Iopamidol 0 .STK-MED ONE .ROUTE (DC) Clopidogrel Bisulfate 0 .STK-MED ONE .ROUTE (DC) Sodium Chloride 1,000 ML .STK-MED ONE IV (DC) Midazolam HCl 0 .STK-MED ONE .ROUTE (DC) Verapamil HCl 0 .STK-MED ONE .ROUTE (DC) Heparin Sodium 0 .STK-MED ONE .ROUTE (DC) Heparin Sodium/Sodium Chloride 1,000 ML .STK-MED ONE IV (DC) Iopamidol 0 .STK-MED ONE .ROUTE (DC) Lidocaine 0 .STK-MED ONE .ROUTE (DC) Fentanyl Citrate 0 .STK-MED ONE .ROUTE (DC) Midazolam HCl 0 .STK-MED ONE .ROUTE (DC) Sodium Chloride 1,000 ML ONCE ONE IV (DC) Physical Exam General appearance: alert, awake, oriented Head/Eyes: atraumatic, normocephalic ENT: moist mucosal membranes Neck: no JVD Cardiovascular: CV assessment: regular rate and rhythm Respiratory: clear to auscultation, no distress Abdomen: soft Lower extremity: LE assessment: no edema Neuro/DIVISIONAL MERCHANDISING MANAGER: alert, oriented X 3, CN II-XII intact Skin: dry, intact Psychiatry: normal affect, normal judgment/insig ht, normal mood Results Findings/Data: Laboratory Tests 05/27 1610 Blood Gas Puncture Site AL ABG pH (7.35 - 7.45 mmHg) 7.30 L ABG pCO2 (35.0 - 45.0 mmHg) 32.9 L ABG pO2 (80.0 - 100.0 mmol/L) 176.2 H ABG HCO3 (20.0 - 26.0 mmol/L) 15.8 L ABG O2 Saturation (95.0 - 100.0 %) 99.1 ABG Base Excess (-3.0 - 3.0 mmol/L) -9.4 L Ashok Test (CHECK) NA Temperature (37 C) 37.0 O2 Delivery Device N/C FiO2 (%) 40 Laboratory Tests 05/28 05/28 05/27 05/27 05/27 0727 0605 2356 2030 1900 Chemistry Sodium (137 - 145 MMOL/L) 137 137 139 Potassium (3.5 - 5.1 MMOL/L) 5.0 5.6 H 5.8 H Chloride (98 - 107 MMOL/L) 111 H 111 H 112 H Carbon Dioxide (22 - 30 MMOL/L) 20 L 18 L 17 L Anion Gap (14 - 24 MMOL/L) 11 L 14 16 BUN (7 - 17 MG/DL) 26 H 26 H 25 H Creatinine (0.52 - 1.04 MG/DL) 1.30 H 1.20 H 1. 30 H Glomerular Filtr Rate 40 44 40 Glucose (74 - 106 MG/DL) 312 *H 277 H 220 H POC Glucose (60 - 99 MG/DL) 279 H 222 H Calcium (8.4 - 10.2 MG/DL) 7.8 L 7.5 L 7.8 L Magnesium (1.6 - 2.3 MG/DL) 1.6 05/27 05/27 1410 1200 Chemistry Sodium (137 - 145 MMOL/L) 137 137 Potassium (3.5 - 5.1 MMOL/L) 6.3 *H 4.6 Chloride (98 - 107 MMOL/L) 111 H 111 H Carbon Dioxide (22 - 30 MMOL/L) 19 L 22 Anion Gap (14 - 24 MMOL/L) 13 L BUN (7 - 17 MG/DL) 24 H 25 H Creatinine (0.52 - 1.04 MG/DL) 1.20 H 1.20 H Glomerular Filtr Rate 44 44 Glucose (74 - 106 MG/DL) 215 H 207 H Calcium (8.4 - 10.2 MG/DL) 7.0 L 6.8 L Total Bilirubin (0.2 - 1.3 MG/DL) 0.4 AST (14 - 36 UNITS/L) 16 ALT (<35 UNITS/L) 9 Total Alk Phosphatase (38 - 126 UNITS/L) 61 Total Protein (6.3 - 8.2 G/DL) 4.2 L Albumin (3.5 - 5.0 G/DL) 2.1 L Laboratory Tests 05/27 05/27 05/27 05/27 1658 1410 1200 1044 Coagulation INR 1.3 1.9 PT Patient/Control Mix (9.4 - 12.5 SECONDS) 14. 7 H 21.4 H Activated Coag Time (74 - 137 SEC) 136 257 H Laboratory Tests 05/28 05/28 05/27 05/27 0810 0605 2356 1410 Hematology WBC (3.8 - 9.8 K/MM3) 7.8 6.6 RBC (3.58 - 4.97 M/MM3) 2.48 L 3.47 L Hgb (11.2 - 14.9 G/DL) 7.4 L 7.6 L 8.2 L 10.5 L Hct (33.2 - 43.5 %) 23.0 L 23.0 L 32.4 L MCV (80.7 - 99.1 fL) 93 93 MCH (27.0 - 34.1 pg) 30.6 30.3 MCHC (32.2 - 35.7 %) 33.0 32.4 RDW (12.1 - 15.2 %) 13.8 13.3 Plt Count (129 - 368 K/MM3) 105 L 124 L MPV (7.4 - 10.4 fl) 10.5 H Neut % (Auto) (43 - 75 %) 67.7 Lymph % (Auto) (14 - 44 %) 17.8 Greene % (Auto) (4 - 13 %) 12.5 Eos % (Auto) (0 - 6 %) 0.6 Baso % (Auto) (0 - 2 %) 0.3 Neut # (Auto) (2.0 - 7.6 K/mm3) 5.38 4.49 Lymph # (Auto) (1.0 - 3.8 K/mm3) 0.50 L 1.18 Greene # (Auto) (0.1 - 0.8 K/mm3) 1.67 H 0.83 H Eos # (Auto) (0.0 - 0.2 K/mm3) 0.02 0.04 Baso # (Auto) (0.0 - 0.2 K/mm3) 0.02 0.02 Total Counted (#CELLS) 130 Immature Gran % (0.0 - 2.0 %) 1.1 Seg Neutrophils % (36.2 - 73.8 %) 66.4 Band Neutrophils % (0 - 10 %) 20.2 H Lymphocytes % (Manual) (12.9 - 45.1 %) 5.0 L Atypical Lymphs % (0 - 0 %) 1.7 H Monocytes % (Manual) (0 - 11 %) 5.9 Basophils % (Manual) (0 - 2 %) 0.8 Nucleated RBC % (0 - 1.0 %) 0.0 Nucleated RBCs # (Man) (0.0 - 0.1 K/mm3) 0.00 0 .00 Platelet Estimate (ADEQUATE) DECREASED Plt Morphology Comment (NORMAL) NORMAL Poikilocytosis (NONE) FEW Anisocytosis (NONE) SLIGHT Ovalocytes (NONE) FEW 05/27 1200 Hematology WBC (3.8 - 9.8 K/MM3) 4.3 RBC (3.58 - 4.97 M/MM3) 2.09 L Hgb (11.2 - 14.9 G/DL) 6.4 *L Hct (33.2 - 43.5 %) 20.0 L MCV (80.7 - 99.1 fL) 96 MCH (27.0 - 34.1 pg) 30.6 MCHC (32.2 - 35.7 %) 32.0 L RDW (12.1 - 15.2 %) 12.8 Plt Count (129 - 368 K/MM3) 113 L MPV (7.4 - 10.4 fl) 10.3 Neut % (Auto) (43 - 75 %) 50.6 Lymph % (Auto) (14 - 44 %) 35.3 Greene % (Auto) (4 - 13 %) 11.8 Eos % (Auto) (0 - 6 %) 1.6 Baso % (Auto) (0 - 2 %) 0.5 Neut # (Auto) (2.0 - 7.6 K/mm3) 2.19 Lymph # (Auto) (1.0 - 3.8 K/mm3) 1.53 Greene # (Auto) (0.1 - 0.8 K/mm3) 0.51 Eos # (Auto) (0.0 - 0.2 K/mm3) 0.07 Baso # (Auto) (0.0 - 0.2 K/mm3) 0.02 Immature Gran % (0.0 - 2.0 %) 0.2 Nucleated RBC % (0 - 1.0 %) 0.0 Nucleated RBCs # (Man) (0.0 - 0.1 K/mm3) 0.00 Platelet Estimate (ADEQUATE) ADEQUATE Plt Morphology Comment (NORMAL) NORMAL Laboratory Tests 05/28 0605 Chemistry Magnesium (1.6 - 2.3 MG/DL) 1.6 Radiology data: Recent Impressions: RADIOLOGY - XR CHEST 1V 05/27 1605 Report Impression - Status: SIGNED Entered: 05/27/2020 1623 IMPRESSION: No radiographic evidence of a focal infiltrate. Enteric tube and right subclavian line. Impression By: [email or web address] George Hadley MD RADIOLOGY - XR CHEST 1V 05/28 0424 Report Impression - Status: SIGNED Entered: 05/28/2020 0527 IMPRESSION: No significant interval change. Impression By: [email or web address] George Carrasquillo MD Diagnosis, Assessment Plan Free Text DxA P Notes Free Text DxA P Notes: IMP: Severe PVD s/p ADMINISTRATIVE ASSISTANT OFFICE MANAGER Retroperitoneal hematoma s/p hematoma evacuation s/p oversewing of internal iliac artery at site of oozing PLAN: Continue current medical rx. Follow H/H closely. at 0935 RPT #:[id number] END OF REPORT 2020-05-28 08:42:00-00:00 [id number] [address] PATIENT NAME: RUTH ANN MONTEJO ADMIT ANA E: 05/27/20 ACCOUNT NO: [id number] ROOM NO: [facility] AGE: 74 REPORT TYPE: ELECTROCARDIOGRAM SEX: F ADMITTING PHYSICIAN:Humberto Carter MD ATTENDING PHYSICIAN:Humberto Carter MD Order: [id number] Test Reason : CAD Test Date/Time Stamp: FriMay 28 2020 08:42:07 Blood Pressure : / mmHG Vent. Rate : 118 BPM Atrial Rate : 120 BPM P-R Int : 136 ms QRS Dur : 090 ms QT Int : 310 ms P-R-T Axes : 000 004 137 degre es QTc Int : 434 ms Sinus tachycardia Anteroseptal infarct (cited on or before 2019) ST and T wave abnormality, consider lateral isch emia Abnormal ECG When compared with ECG of 27-MAY-2020 16:32, Vent. rate has increased BY 52 BPM Significant changes have occurred Confirmed by RADHA SALINAS ([id number]) on 05/28/2020 9:52:28 AM Referred By: Humberto Carter Confirmed by:RADHA SALAZAR at 0952 PATIENT NAME: RUTH ANN MONTEJO 2020-05-27 17:31:00-00:00 [facility] ([facility]) Hospitalist History Physical REPORT#:[id number] REPORT STATUS: Signed DATE:05/27/20 TIME: 1731 PATIENT: RUTH ANN MONTEJO UNIT #: [id number] [address]OM/BED: [address] : [address] AGE: 74 SEX: F ATTEND: Humberto Carter MD ADM AUTHOR: Humberto Carter MD * ALL edits or amendments must be made on the [employer]/computer document * History of Present Illness HPI Chief complaint: Intra-abdominal hemorrhage. HPI: Patient is a 74-year-old female who is seen in [facility] intensive care unit after surgery. She is somnolent and unable to provide much information. History has been obtained mostly from review of the chart, a s well as limited information provided by the patient. She has longstanding hi story of coronary artery disease as well as DM, HTN, and CHF. She recently underwent arterial Doppler of lower extremities for worsen ing symptoms of claudication. She was noted to have right ankle-brachial index of 0.19 and left of 0 .67. She was brought to this facility this morning to undergo revascularizati on of lower extremities. She was noted to have severe PAD bilaterally; while performing ADMINISTRATIVE ASSISTANT OFFICE MANAGER of the right SFA in the right popliteal she was noted to have con tinuous oozing from the right internal iliac artery suggestive of diss ection of the vessel during procedure. She was hypotensive and noted to be a anemic and was taken to the OR by Dr. Mario Das on an emergent basis. Informant/historian: prior records, referring ph ysician History Past medical history: Reports: COPD, Coronary artery disease, Diabetes mellitus, Hypertension, Dyslipidemia. Additional medical history: PVD Additional surgical history: CABG, PVD surgery, recently had lt fem-pop bypas s and left popliteal endarterectomy Family history: Reports: Heart disease. Alcohol use: Denies EtOH use Drug use: Denies recreational drugs Smoking status for patients 13 years old or olde r: Former Smoker Medication/Allergy-Vaccine Hx Home Medications: ASPIRIN EC (ECOTRIN) 81 MG PO DAILY ATORVASTATIN (LIPITOR) 80 MG PO DAILY CHOLECALCIFEROL (VITAMIN D3) (VITAMIN D3) 1,000 UNITS PO DAILY CINNAMON BARK (CINNAMON) 1 CAP PO DAILY CLOPIDOGREL (PLAVIX) 75 MG PO DAILY FUROSEMIDE (LASIX) 40 MG PO DAILY GABAPENTIN (NEURONTIN) 100 MG PO DAILY HYDROcodone/APAP (NORCO 7.5/325) 1 TAB PO BID INSULIN DETEMIR (LEVEMIR) 52 UNITS SUBQ BID ISOSORBIDE MONONITRATE SR (IMDUR) 30 MG PO DAILY LOSARTAN (COZAAR) 25 MG PO DAILY METOPROLOL SUCC XL (TOPROL XL) 50 MG PO DAILY MONTELUKAST (SINGULAIR) 10 MG PO DAILY MULTIVITAMIN/MIN/IRON/LUTEIN (CENTRUM SILVER ULT RA WOMEN) 1 EACH PO DAILY POTASSIUM CHLORIDE ER (MICRO-K) 10 MEQ PO DAILY RIVAROXABAN (XARELTO) 10 MG PO DAILY TIOTROPIUM BROMIDE (SPIRIVA RESPIMAT 2.5 MCG/ACT ) 2 PUFF INH BID Allergies: Coded Allergies: ciprofloxacin (From CIPRO) (Intermediate, UNKNOW N 06/12/18) itchiness Ambulatory status: Independent Review of Systems Unable to obtain due to: mental status. Objective General VS/I O: Vital Signs: Date Time Temp Pulse Resp B/P B/P Pulse O2 O2 F low FiO2 Mean Ox Delivery Rate 05/27 1600 Nasal 2.033384 cannula 05/27 1545 98.5 Patient Weight Weight (lb): 194 Weight (oz): 0.11 Weight (kg): 88.000 Medications: Active Meds + DC'd Last 24 Hrs Aspirin 81 MG DAILY PO Clopidogrel Bisulfate 75 MG DAILY PO Atorvastatin Calcium 80 MG BEDTIME PO Famotidine 20 MG Q12HR IV Insulin Glargine 52 UNITS BID SUBQ Mupirocin 1 APPLIC BID NASAL Cefazolin Sodium 1,000 MG Q8H IV Sodium Chloride 10 ML Cholecalciferol 1,000 UNIT DAILY PO (CKD) Furosemide 40 MG DAILY PO Gabapentin 100 MG DAILY PO Isosorbide Mononitrate 30 MG DAILY PO Losartan Potassium 25 MG DAILY PO Metoprolol Succinate 50 MG DAILY PO Montelukast Sodium 10 MG DAILY PO Potassium Chloride 10 MEQ DAILY PO Acetaminophen 650 MG Q4H PRN PRN PO Calcium Gluconate 1,000 MG ASDIR PRN IV Sodium Chloride 100 ML Dextrose/Sodium Chloride 1,000 ML .[id number] IV Nicardipine HCl 25 MG ASDIR PRN IV Sodium Chloride 250 ML Ondansetron HCl 4 MG Q8H PRN PRN IV Fentanyl Citrate 0 .STK-MED ONE .ROUTE (DC) Sugammadex Sodium 0 .STK-MED ONE .ROUTE (DC) Insulin Human Regular 0 .STK-MED ONE .ROUTE (DC) Fentanyl Citrate 0 .STK-MED ONE .ROUTE (DC) Heparin Sodium/Sodium Chloride 500 ML .STK-MED O NE IV (DC) Nicardipine HCl 250 ML .STK-MED ONE IV (DC) Phenylephrine HCl 100 ML .STK-MED ONE IV (DC) Gentamicin Sulfate 0 .STK-MED ONE .ROUTE (DC) Albumin Human 500 ML .STK-MED ONE IV (DC) Norepinephrine Bitartrate 0 .STK-MED ONE .ROUTE (DC) Phenylephrine HCl 0 .STK-MED ONE IV (DC) Sodium Chloride 200 ML .STK-MED ONE IV (DC) Epinephrine 250 ML .STK-MED ONE IV (DC) Sodium Chloride 250 ML .STK-MED ONE IV (DC) Iopamidol 0 .STK-MED ONE .ROUTE (DC) Clopidogrel Bisulfate 0 .STK-MED ONE .ROUTE (DC) Sodium Chloride 1,000 ML .STK-MED ONE IV (DC) Midazolam HCl 0 .STK-MED ONE .ROUTE (DC) Verapamil HCl 0 .STK-MED ONE .ROUTE (DC) Heparin Sodium 0 .STK-MED ONE .ROUTE (DC) Heparin Sodium/Sodium Chloride 1,000 ML .STK-MED ONE IV (DC) Iopamidol 0 .STK-MED ONE .ROUTE (DC) Lidocaine 0 .STK-MED ONE .ROUTE (DC) Fentanyl Citrate 0 .STK-MED ONE .ROUTE (DC) Midazolam HCl 0 .STK-MED ONE .ROUTE (DC) Clopidogrel Bisulfate 75 MG ONCE ONE PO (DC) Clopidogrel Bisulfate 0 .STK-MED ONE .ROUTE (DC) Diazepam 0 .STK-MED ONE .ROUTE (DC) Aspirin 0 .STK-MED ONE .ROUTE (DC) Diphenhydramine HCl 0 .STK-MED ONE .ROUTE (DC) Aspirin 325 MG ONCE ONE PO (DC) Diazepam 5 MG ONCE ONE PO (DC) Diphenhydramine HCl 25 MG ONCE ONE PO (DC) Sodium Chloride 1,000 ML ONCE ONE IV (DC) Physical Exam General appearance: sedated, no acute distress Head/Eyes: atraumatic, PERRL, pale conjunctivae. ENT: NGT Neck: non-tender, supple/no meningismus Cardiovascular: normal heart sounds, regular rat e rhythm, no pedal edema; pedal pulses not palpable. Respiratory: clear to auscultation, symmetric ex pansion, no distress Abdomen: obese, soft, surgical site covered with dressing; bowel sounds diminished; non-distended. Genitourinary: michael Rectal: not indicated Extremities: no clubbing, no cyanosis, no edema Neuro/[employer]ISION[employer]CH[employer]NA[employer]: somnolent but arousable; no facial as symetry. Psychiatry: unable to evaluate Results Findings/Data: Laboratory Tests 05/27 1610 Blood Gas Puncture Site AL ABG pH (7.35 - 7.45 mmHg) 7.30 L ABG pCO2 (35.0 - 45.0 mmHg) 32.9 L ABG pO2 (80.0 - 100.0 mmol/L) 176.2 H ABG HCO3 (20.0 - 26.0 mmol/L) 15.8 L ABG O2 Saturation (95.0 - 100.0 %) 99.1 ABG Base Excess (-3.0 - 3.0 mmol/L) -9.4 L Ashok Test (CHECK) NA Temperature (37 C) 37.0 O2 Delivery Device N/C FiO2 (%) 40 Laboratory Tests 05/27 05/27 05/27 1410 1200 0715 Chemistry Sodium (137 - 145 MMOL/L) 137 137 141 Potassium (3.5 - 5.1 MMOL/L) 6.3 *H 4.6 4.6 Chloride (98 - 107 MMOL/L) 111 H 111 H 105 Carbon Dioxide (22 - 30 MMOL/L) 19 L 22 27 Anion Gap (14 - 24 MMOL/L) 13 L 14 BUN (7 - 17 MG/DL) 24 H 25 H 28 H Creatinine (0.52 - 1.04 MG/DL) 1.20 H 1.20 H 1. 40 H Glomerular Filtr Rate 44 44 37 Glucose (74 - 106 MG/DL) 215 H 207 H 140 H Calcium (8.4 - 10.2 MG/DL) 7.0 L 6.8 L 8.7 Magnesium (1.6 - 2.3 MG/DL) 1.8 Total Bilirubin (0.2 - 1.3 MG/DL) 0.4 AST (14 - 36 UNITS/L) 16 ALT (<35 UNITS/L) 9 Total Alk Phosphatase (38 - 126 UNITS/L) 61 Total Protein (6.3 - 8.2 G/DL) 4.2 L Albumin (3.5 - 5.0 G/DL) 2.1 L Triglycerides (MG/DL) 179 Cholesterol (<200 MG/DL) 128 LDL Cholesterol Measurd (0 - 99 MG/DL) 87 HDL Cholesterol (40 - 59 MG/DL) 29 L Laboratory Tests 05/27 05/27 05/27 05/27 1658 1410 1200 1044 Coagulation INR 1.3 1.9 PT Patient/Control Mix (9.4 - 12.5 SECONDS) 14. 7 H 21.4 H Activated Coag Time (74 - 137 SEC) 136 257 H 05/27 0715 Coagulation INR 1.1 APTT (25.1 - 36.5 SECONDS) 30.8 PT Patient/Control Mix (9.4 - 12.5 SECONDS) 12. 0 Laboratory Tests 05/27 05/27 05/27 1410 1200 0715 Hematology WBC (3.8 - 9.8 K/MM3) 6.6 4.3 5.3 RBC (3.58 - 4.97 M/MM3) 3.47 L 2.09 L 3.50 L Hgb (11.2 - 14.9 G/DL) 10.5 L 6.4 *L 10.8 L Hct (33.2 - 43.5 %) 32.4 L 20.0 L 33.2 MCV (80.7 - 99.1 fL) 93 96 95 MCH (27.0 - 34.1 pg) 30.3 30.6 30.9 MCHC (32.2 - 35.7 %) 32.4 32.0 L 32.5 RDW (12.1 - 15.2 %) 13.3 12.8 12.8 Plt Count (129 - 368 K/MM3) 124 L 113 L 143 MPV (7.4 - 10.4 fl) 10.5 H 10.3 10.4 Neut % (Auto) (43 - 75 %) 67.7 50.6 49.0 Lymph % (Auto) (14 - 44 %) 17.8 35.3 29.8 Greene % (Auto) (4 - 13 %) 12.5 11.8 17.3 H Eos % (Auto) (0 - 6 %) 0.6 1.6 2.7 Baso % (Auto) (0 - 2 %) 0.3 0.5 0.8 Neut # (Auto) (2.0 - 7.6 K/mm3) 4.49 2.19 2.58 Lymph # (Auto) (1.0 - 3.8 K/mm3) 1.18 1.53 1.57 Greene # (Auto) (0.1 - 0.8 K/mm3) 0.83 H 0.51 0.9 1 H Eos # (Auto) (0.0 - 0.2 K/mm3) 0.04 0.07 0.14 Baso # (Auto) (0.0 - 0.2 K/mm3) 0.02 0.02 0.04 Immature Gran % (0.0 - 2.0 %) 1.1 0.2 0.4 Nucleated RBC % (0 - 1.0 %) 0.0 0.0 0.0 Nucleated RBCs # (Man) (0.0 - 0.1 K/mm3) 0.00 0 .00 0.00 Platelet Estimate (ADEQUATE) ADEQUATE Plt Morphology Comment (NORMAL) NORMAL Laboratory Tests 05/27 0530 Serology SARS-CoV-2 Ag (Rapid) (Negative) NEGATIVE Radiology data: Recent Impressions: RADIOLOGY - XR CHEST 1V 05/27 1605 Report Impression - Status: SIGNED Entered: 05/27/2020 2147 IMPRESSION: No radiographic evidence of a focal infiltrate. Enteric tube and right subclavian line. Impression By: [email or web address] George Hadley MD Results: labs reviewed, chet l signs stable, rhythm personally rev'd, current med profile rev'd Diagnosis, Assessment Plan Free Text DxA P Notes Free text DxA P notes: - 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 - ANEMIA DUE TO ACUTE BLOOD LOSS. - HYPERKALEMIA, ? etiology. - CKD, stage 3. - ASHD. - HTN. - DM. - CHF DUE OT DIASTOLIC DYSFUNCTION, CHRONIC. - COPD WITHOUT EXACERBATION. - HYPERLIPIDEMIA. - OBESITY. PLAN: - Continue NG tube. - Repeat K stat, and treat if needed. - Hold Lasix, KCL, and Losartan. - Hold Lantus. - Monitor accu checks, and cover with SSI. - Monitor Hgb; continue to transfuse to keep Hgb > 7. Quality Current Medications Current medication review: I attest that the foregoing medication list in [facility] medical record is true, accurate, and complete to the best of my knowled ge. Electronically Signed by Humberto Carter MD on 05/27 at 2226 RPT #:[id number] END OF REPORT 2020-05-27 16:32:00-00:00 [id number] [place] [address] PATIENT NAME: RUTH ANN MONTEJO ADMIT ANA E: 05/27/20 ACCOUNT NO: [id number] ROOM NO: Z.SI12 AGE: 74 REPORT TYPE: ELECTROCARDIOGRAM SEX: F ADMITTING PHYSICIAN:Humberto Carter MD ATTENDING PHYSICIAN:Humberto Carter MD Order: [id number] Test Reason : post op Test Date/Time Stamp: Sat May 27 2020 16:32:50 Blood Pressure : / mmHG Vent. Rate : 066 BPM Atrial Rate : 066 BPM P-R Int : 192 ms QRS Dur : 098 ms QT Int : 442 ms P-R-T Axes : 041 007 177 degree s QTc Int : 463 ms Normal sinus rhythm Possible Anterior infarct , age undetermined ST and T wave abnormality, consider lateral isch emia Abnormal ECG When compared with ECG of 27-MAY-2020 07:40, Nonspecific T wave abnormality has repla eduin inverted T waves in Inferior leads Confirmed by RADHA SALINAS ([id number]) on 05/27/2020 4:48:07 PM Referred By: Radha Salinas Confirmed by:RADHA LINDSEY at 1648 PATIENT NAME: RUTH ANN MONTEJO 2020-05-27 15:50:00-00:00 [facility] ([facility]) Brief Op Note REPORT#:[id number] REPORT STATUS: Signed DATE:05/27/20 TIME: 1550 PATIENT: RUTH ANN MONTEJO UNIT #: [id number] ROOM/BED: [address] : 44 AGE: 74 SEX: F ATTEND: Александр Almazan MD ADM AUTHOR: Caridad Esteves * ALL edits or amendments must be made on the el [employer]/computer document * Op/Inv Proc Note - Brief Pre-procedure diagnosis: Bleeding right iliac artery Hematoma right retroperitoneum Post-procedure diagnosis: same as pre procedure dx Procedures performed: Exploration of the right retroperitoneum. Evacua tion of hematoma, Primary Surgeon: Mario Das Product Safety Technician(s): DAYANA Norris Anesthesiologist: Dr. Jarred Ortiz CRNA Anesthesia: general anesthesia Findings: See detailed op report Complications: none Estimated blood loss in ml's: 200 cc Specimens removed/altered: hematoma Approach: open Wound class: clean Disposition: ICU, stable at 1643 RPT #:[id number] END OF REPORT 2020-05-27 15:50:00-00:00 [facility] ([facility]) Brief Op Note REPORT#:[id number] REPORT STATUS: Signed DATE:05/27/20 TIME: 1550 PATIENT: RUTH ANN MONTEJO UNIT #: [id number] ROOM/BED: [address] : 44 AGE: 74 SEX: F ATTEND: Александр Almazan MD ADM AUTHOR: Craidad Esteves * ALL edits or amendments must be made on the [employer]/computer document * Op/Inv Proc Note - Brief Pre-procedure diagnosis: Bleeding right iliac artery Hematoma right retroperitoneum Post-procedure diagnosis: same as pre procedure dx Procedures performed: Exploration of the right retroperitoneum. Evacua tion of hematoma, Primary Surgeon: Mario Das Product Safety Technician(s): DAYANA Norris Anesthesiologist: Dr. Jarred Ortiz CRNA Anesthesia: general anesthesia Findings: See detailed op report Complications: none Estimated blood loss in ml's: 200 cc Specimens removed/altered: hematoma Approach: open Wound class: clean Disposition: ICU, stable at 1643 at 1939 RPT #:[id number] END OF REPORT 2020-05-27 15:41:00-00:00 [id number] [facility] [address] [place] [id number] PATIENT NAME: RUTH ANN MONTEJO ADMIT ANA E: 05/27/20 ACCOUNT NO: [id number] ROOM NO: [facility] AGE: 74 REPORT TYPE: OPERATIVE REPORT SEX: F ADMITTING PHYSICIAN:Kari Almazan MD ATTENDING PHYSICIAN:Kari Almazan MD OPERATION DATE: 05/27/2020 CARDIAC SURGERY SERVICE PREOPERATIVE DIAGNOSES: Coronary artery disease, peripheral vascular disease, hypertension, hyperlipidemia, diabetes mellitus, and right retroperitoneal hematoma. POSTOPERATIVE DIAGNOSES: Coronary artery disease, peripheral vascular disease, hypertension, hyperlipidemia, diabetes mellitus, and right retroperitoneal hematoma. PROCEDURE: 1. Exploration of right retr operitoneum and evacuation of right retroperitoneal hematoma. 2. Right CVP insertion. SURGEON: Mario Das MD INVENTORY SPECIALIST: 1. Chandler, licensed video library assistant. 2. Herb, licensed video library assistant. ANESTHESIA: General. COMPLICATIONS: None. DISPOSITION: The patient to the surgical ICU in stable condition. DESCRIPTION OF PROCEDURE: On 05/27/2020, patient was brought to the operating room, placed on the operating table in supine po sition, prepped and draped in usual fashion. Following introduction of satisfa ctory general anesthesia, placement of monitoring line s, Michael catheter, hips, shoulders, elbows padded in usual fashion. Right subclavian CVP was placed u sing Seldinger percutaneous guidewire technique. The patient was the n prepped and draped in usual fashion. Right pararectus incision was made, carried thro ugh anterior and posterior rectus fascia. Retroperitoneal plane was identif ied and found to have free blood in the retroperitoneum, dissected down to the pelvic margin. Pelvic brim dissected down over the mel c, common iliac, external iliac, and internal iliac arteries. There was free blood mixed ascites flu id at this location. We drained all the blood out of the site, so as to very clear imaging of the common iliac artery. Common iliac artery was hard and c alcified, but was intact. The PATIENT NAME: RUTH ANN MONTEJO external iliac artery had good pulse in the internal iliac artery. Had a pulse proximally. We did not identify any actual site of bleeding or pulsatile arterial bleeding; however, this is small and wa s smaller on the anterior portion of the internal iliac artery had a small amount of oozing, which may have been the origin. This was oversewn with a 5-0 Prolene mattress suture for complete hemostasis. We irrigated with antibioti c saline solution in copious amounts. We inspected carefully for any site of bleeding and which was none. We irrigated again with the antibiotic saline s olution and closed the abdominal wall in layers and dressings were appl ied and the patient was brought out to the surgical ICU in stable condit ion. Dictated By: Mario Das MD WT: OP:ZDANY/PEREZ/EVA Conf#: [id number]/DID#: [id number] cc: Radha Salinas MD Authenticated and Edited by Mario Das MD On 06/04/20 3:37:23 PM at 1541 PATIENT NAME: RUTH ANN MONTEJO 2020-05-27 13:34:00-00:00 [id number] [place] [address] PATIENT NAME: RUTH ANN MONTEJO ADMIT ANA E: 05/27/20 ACCOUNT NO: [id number] ROOM NO: Z.DC4T AGE: 74 REPORT TYPE: CARDIAC CATHETERIZATION REPORT SEX: F ADMITTING PHYSICIAN:Humberto Carter MD ATTENDING PHYSICIAN:Radha Salinas MD PROCEDURE DATE: 05/27/2020 LACING CUTTER: Radha Salinas MD INDICATION FOR THE PROCEDURE: Disabling bilatera l leg claudications, worse on the right in a patient with extensive peripheral arterial disease and extensive atherosclerotic cardiovascular disease history. TITLE OF THE PROCEDURE: 1. Abdominal and bilateral selective iliofemoral angiograms. 2. First order angiogram of the left lower extre mity. 3. Third order angiogram of the left lower extre mity. 4. ADMINISTRATIVE ASSISTANT OFFICE MANAGER of the right SFA. 5. ADMINISTRATIVE ASSISTANT OFFICE MANAGER of the right popliteal. 6. ADMINISTRATIVE ASSISTANT OFFICE MANAGER of the right internal iliac to stop the b leeding. ESTIMATED BLOOD LOSS: Significant. CONTRAST: 280. ANESTHESIA: Conscious sedation with Versed and f entanyl and 1% lidocaine for local anesthesia. COMPLICATIONS: Right internal iliac bleed. DISPOSITION: Operating room for the right biomedical engineering internship al iliac bleed. FINAL DIAGNOSES: Severe peripheral arterial dise ase bilaterally, status post ADMINISTRATIVE ASSISTANT OFFICE MANAGER of the right SFA and the right popli teal, continuous oozing from the right internal iliac necessitating OR. PROCEDURE IN DETAIL: After informed consent, the patient was brought to the cardiac catheterization lab in a stable fasting nonsedated state. She was prepped and draped in the usual sterile fashion. After conscious sedation, 1% lidocaine was administered to the left common fe moral artery area for local anesthesia. A 6-Tunisian sheath was placed in the left common femoral artery using standard techniques and fluoroscopy. Abdom inal angiogram showed patent stent in the right common il iac with 35% proximal ostial disease, some plaquing in the aorta. The needles were free of angiograp hic disease. The right SFA is occluded at its origin and it has stents from the beginning to the distal SFA. We had a hard time trying to wire the external i liac due to the stent in the common iliac and the wire in advertently has gone to the internal iliacs several PATIENT NAME: RUTH ANN MONTEJO times. Finally, I was able to wire with the Glid e Advantage wire down to the SFA and using the Ultraverse 7 x 200, I was able to pass the balloon down to the mid SFA and it could not go any further from the re. The wire may have extravasated distally in the SFA enclosed the small popliteal bleed, so I had to use a 6 x 80 balloon Ultrave rse and used a Storq wire and that still did not go through, then, I had to use an Asahi wire, 0.018 and I was able to cross the distal SFA and the joined popliteal. Then, I dil ated the whole SFA with a 7 x 200 resulting in good flow. The popliteal was tamponaded with a 4 x 80 and that resulted in stopping the bleeding in the popliteal from the wire extravasation earlier. The patient became hypotensive around t hat point. She was given fluids and blood pressure stabilized around the high 70s. I did angiograms of the left SFA selective that showed the left comm on femoral and the SFA is completely occluded 100% and the blood is going to the leg from the profunda. The angiograms on the right lower extremity shows patent stent all the way down with 3-vessel runoff. So I d id angiograms of the right iliac and found out that there is an extravasation fr om the right internal iliac causing retroperitoneal hematoma and that is because of the hypotension, so I put a balloon 6 x 20 in the proximal internal iliac and that stopped the bleeding and the blood pressure went up to around 100. The patient stabilized. H er hemoglobin has dropped significantly, so she received 2 units of blood. Surgical consultation was obtained. I left the balloon on for about an mica r and angiogram showed significant slowing of the bleed, but there was a concern about the amount of hematoma, so Dr. Das dec ided to take the patient to surgery for exploration, so the patient will be going for surgery for greg luation of the internal iliac bleeding and she went to the OR hemodynamically stable and getting blood transfusion. This was all di scussed in detail with the patient and discussed in detail with the daughter by phone. The patient o riginally has signed no blood transfusion, but after I bob ked with her and after talk with her daughter, they both agreed that she would receive blood transfu radha. The complication again was right internal iliac ble eding from wire dissection that was tamponaded with the balloon, but there was significant b leeding throughout the lower pelvis as evident by the x-rays, so the patient was taken to surgery. Dictated By: Radha Salinas MD WT: CATH:JUAN ALBERTO/PERLA/EVA Conf#: [id number]/DID#: [id number] Authenticated by Radha Salinas MD On 05/07 02:57:22 PM at 1457 PATIENT NAME: RUTH ANN MONTEJO 2020-05-27 12:44:00-00:00 [id number] [place] [address] PATIENT NAME: RUTH ANN MONTEJO ADMIT ANA E: 05/27/20 ACCOUNT NO: [id number] ROOM NO: Z.358 AGE: 74 REPORT TYPE: CONSULTATION REPORT SEX: F ADMITTING PHYSICIAN:Kari Almazan MD ATTENDING PHYSICIAN:Kari Almazan MD CONSULTATION DATE: 05/27/2020 CONSULTING PHYSICIAN: Mario Das MD CARDIAC SURGERY SERVICE The patient is seen at bedside. DIAGNOSES: Bleeding right il iac artery, hypertension, hyperlipidemia, diabetes, coronary artery disease, status post coronary ar naomy bypass surgery; severe peripheral vascular disease, status post angiopl asty and stent of the superficial femoral artery. BRIEF HISTORY: This is a 74- year-old patient, long-term patient of Dr. Salinas, had previous coronary artery bypass surgery. Gra fts are stable. Grafts are patent. The patient with echocardiogram has mode rate MR and ejection fraction about 35% to 40%. Carotid duplex imaging shows l ess than 50% stenosis. The patient has severe PVD with REESE on the right about 0.16 and left about 0.6. The patient had angioplasty and stent of the right S FA, which was occluded today; however, she was noted to have drop in her press ure and further investigation demonstrated some bleeding f rom the internal iliac artery, possibly from a wire perforation. The patient's bleeding seems to be stabilized with balloon occlusion of the internal iliac artery. Hemoglob in is now at 6.7. The patient will be transfused 2 units o f packed cells. We will continue to hold pressures. If bleeding does not stop the next 30 minutes, our plan is to go to the operating room for exploration of the iliac rajendra ry and repair. REVIEW OF SYSTEMS: Otherwise is negative. No his tory of hemophilia or coagulopathy. MEDICATIONS: The patient has been on Xarelto and Plavix. The patient received heparin in the operating room. RECOMMENDATION: I discussed the case with the pa lexus and also with the patient's daughter. Our plan is to go to the operating room for exploration and repair of the artery. This was discussed in detail with the daughter including potential risks and complications, she agrees. Dictated By: Mario Das MD WT: CON:JOSEPH/PEREZ/EVA PATIENT NAME: NIKIARUTH ANN Conf#: [id number]/DID#: [id number] Authenticated by Mario Das MD On 020 03:37:05 PM at 5237 PATIENT NAME: NIKIARUTH ANN CARDENAS 2020-05-27 07:40:00-00:00 [id number] [place] [address] PATIENT NAME: NIKIARUTH ANN ADMIT ANA E: 05/27/20 ACCOUNT NO: [id number] ROOM NO: AGE: 74 REPORT TYPE: ELECTROCARDIOGRAM SEX: F ADMITTING PHYSICIAN: ATTENDING PHYSICIAN:Radha Salinas MD Order: [id number] Test Reason : ABDOMINAL AORTOGRAM Test Date/Time Stamp: Sat May 27 2020 07:40:37 Blood Pressure : / mmHG Vent. Rate : 066 BPM Atrial Rate : 066 BPM P-R Int : 000 ms QRS Dur : 082 ms QT Int : 430 ms P-R-T Axes : 000 057 231 degree s QTc Int : 450 ms Normal sinus rhythm ST and T wave abnormality, consider inferolatera l ischemia Abnormal ECG When compared with ECG of 01-AUG-2018 07:21, Nonspecific T wave abnormality has repla eduin inverted T waves in Anterior leads Confirmed by RADHA SALINAS ([id number]) on 05/27/2020 9:12:11 AM Referred By: Radha Salinas Confirmed by:RADHA LINDSEY at 0912 PATIENT NAME: RUTH ANN MONTEJO 2020-05-25 18:22:00-00:00 [id number] [place] [address] PATIENT NAME: RUTH ANN MONTEJO ADMIT ANA E: ACCOUNT NO: [id number] ROOM NO: AGE: 74 REPORT TYPE: HISTORY AND PHYSICAL SEX: F ADMITTING PHYSICIAN: ATTENDING PHYSICIAN:Radha Salinas MD PATIENT NAME: RUTH ANN MONTEJO ADMIT ANA E:05/27/2020 ADMISSION DATE: 05/27/2020 ADMISSION HISTORY AND PHYSICAL LACING CUTTER: Radha Salinas MD REASON FOR ADMISSION: Abdominal and bila teral selective iliofemoral angiograms for symptomatic peripheral arterial disease and possible revascularization. HISTORY OF PRESENT ILLNESS: Ruth Ann is a 74-year-old patient of mine with a long history of atherosclerotic cardiovascular diseas e and multiple previous interventions. The patient recently was evaluate d with worsening symptoms of peripheral arterial disease, mainly on the right . Her lower arterial Doppler examination showed the right ankle brachial index to be 0.19 and the left 0.67. The patient's cardiac status has been stable. He r cardiac workup is detailed below. Her last angiogram was on 03/20/2019. At that time, she had occlusion of the right SFA and underwent several stents, d etails are enclosed. She also has had previously right common iliac st ent and she has had stents in the left SFA. The patient appears to have occluded her ri ght SFA. At this time, she is here for angiograms from the left lower extremity and possible revascularization of the right lower extremity. She has had receiv ed atherectomy in the past. The patient has had multiple procedures on bilateral lower extremities. She is known to have coronary artery disease and her la st cardiac catheterization in 2017 showed patent NIÑO to the LAD and p atent vein graft to the right coronary artery with occluded circumflex. She has had als o previously left subclavian stenting. Her last carotid Doppler did not show significant disease. Her last echocardiogram showed an ejection fracti on of 55% to 60% with [id number] valvular insufficiencies. Her last nuclear stres s test showed ischemia, but that was before the cardiac catheterization. PAST MEDICAL HISTORY: Remarkable for the above i n addition to hyperlipidemia, mitral regurgitation, diabetes, aortic insuffici ency, COPD, reflux disease, depression, and allergies. PAST SURGICAL HISTORY: The above-mentioned cardi ovascular procedures. ALLERGIES: CIPROFLOXACIN, WHICH GIVES HER SOME S MONTSERRAT EFFECTS. MEDICATIONS: Reviewed and listed in the records. SOCIAL HISTORY: There is no history of smoking, alcohol, or street drug use. PATIENT NAME: RUTH ANN MONTEJO FAMILY HISTORY: Positive for atherosclerotic car diovascular disease. REVIEW OF SYSTEMS: Remarkable for the above. No acute GI or symptoms. No TIAs or strokes. PHYSICAL EXAMINATION: GENERAL: Reveals a pleasant elderly lady in no a cute distress. VITAL SIGNS: Blood pressure 130/76, pulse 85 and regular, respiratory rate 18 and unlabored, and temperature afebrile. HEENT: Head, atraumatic and normocephalic. Eyes and ENT examination within normal for age. NECK: Supple. Mild jugular venous elevation. No bruits or lymphadenopathy. Normal upstroke. LUNGS: Decreased air entry, otherwise clear and resonant. HEART: Regular rate and rhythm with II/V I systolic ejection murmur at the left lower sternal border and I/ diastolic murmur a t the mitral and aortic area respectively. No gallops. ABDOMEN: Soft. No tenderness, no organomegaly, n o masses or bruits. EXTREMITIES: Zero pulses on the right, 1+ on the left. No edema, cyanosis, or clubbing. NEUROLOGIC: Alert and oriented x3. The examinati on appears to be nonfocal. LABORATORY DATA: Pending. Noninvasive cardiovasc ular workup enclosed. IMPRESSION: This is a 74-year-old lady with adva nced atherosclerotic cardiovascular disease, who comes in with severe symptoms of the right lower extremity with rest claudications. She a ppears to have occluded her right SFA. She is here for angiograms from the left lower e xtremity and possible revascularization of the right lower extremity. RECOMMENDATIONS: The recommendation is to procee d with the above-mentioned procedures. The risks and benefits of th e planned procedures were discussed in detail with the patient and she is willing to pr oceed. Rest as per orders. Dictated By: Radha Salinas MD WT: HP:JOSEPH/PERLA/EVA Conf#: [id number]/DID#: [id number] Authenticated and Edited by Radha Salinas MD On 05/25/20 8:34:32 PM at 2037 PATIENT NAME: RUTH ANN MONTEJO 2019-03-20 13:53:00-00:00 [id number] [place] [address] PATIENT NAME: RUTH ANN MONTEJO ADMIT ANA E: 03/20/19 ACCOUNT NO: [id number] ROOM NO: AGE: 73 REPORT TYPE: CARDIAC CATHETERIZATION REPORT SEX: F ADMITTING PHYSICIAN: ATTENDING PHYSICIAN:Radha Salinas MD PROCEDURE DATE: 03/20/2019 CARDIOVASCULAR PROCEDURE LACING CUTTER: Radha Salinas MD INDICATION FOR THE PROCEDURE: Disabling peripheral arterial disease with right lower extremity claudication, previous stenting of the right SFA, and recent angiogram showing significant disease. TITLE OF THE PROCEDURE: 1. Selective bilateral iliofemoral angio grams, third order on the right, first order on the left, orbital a therectomy, ADMINISTRATIVE ASSISTANT OFFICE MANAGER and stenting of the right SFA, total of 4 stents and closure device. ESTIMATED BLOOD LOSS: Minimal. COMPLICATIONS: None. CONTRAST: 110 mL. ANESTHESIA: Conscious sedation with Versed and f entanyl and 1% lidocaine for local anesthesia. FINAL DIAGNOSES: A 100% occlusion of the right S FA, very proximally. Of note, here that on 02/06/2019, there was two 80% lesio ns proximal and there was no restenosis of the distal stent, now it i s 100% occluded proximally. There is a patent right common iliac st ent and the left SFA stent is patent with one focal area of 50% restenosis. There is 3-vessel runoff distally on the right and small vessel disease on the left. The patient is now status post orbital atherectomy, ADMINISTRATIVE ASSISTANT OFFICE MANAGER and stenting of the right SFA. PROCEDURE IN DETAIL: After informed consent, the patient was brought to the cardiac catheterization lab in a stable fasting nonsedated state. She was prepped and draped in the usual sterile fashion. After conscious sedation, 1% lidocaine was administered to the left common fe moral artery area for local anesthesia. A 6-Tunisian sheath was placed in the left common femoral artery using standard techniques an d fluoroscopy. After heparinization, I crossed with a NIÑO catheter down to the right SFA with the G lide Advantage wire and angiograms of the right SFA, third order showed 100% occlusion of the proximal SFA. It reconstitutes down at the popliteal. Esperanza n the distal stent is occluded. So using the NaviCross catheter and th e [place] Advantage wire, I was PATIENT NAME: RUTH ANN MONTEJO able to wire all the way down and took pictures of the infrapopliteal vessels that were 3-vessel and patent. Then I changed th e wire to the Viper wire and did orbital atherectomy with the Diamondback 2.0 throughout the SFA. Then, I used a long balloon EverCross 6 x 200 and dilate d the area, but actually this balloon was used after stent ing. I put 2 stents first, one overlapping with the distal stent and one proximal to that and they w ere Nopsec vascular 7 x 120. Followup angiograms even aft er dilating with the balloon showed 100% occlusion. There was still a lesion pro ximal and the lesion distal to the distal old stent. So I placed another Epic vascular stent 7 x 40 distal and then went ahead and placed an Express iliac 7 x 27 balloon-m ounted stent proximal, postdilated the whole area would be 200 mm 6 mm balloon that resulted in less than 0% residual and great flow all the way down to the toes. The patient tolerated the procedure well. There were no complications. There was no evidence of thrombosis. At the end of the procedure, I did selective angiogram of the right iliac that showed the rig ht common iliac stent to be widely patent and did selective angiogram of the left lower extremity that showed the common femoral area around 40 % disease and the stent is patent, but there was a segment in the m iddle 50% eccentric narrowing and there was 3-vessel runoff distally, but small vessel. The l eft groin was sealed using Mynx. There were no complications. The p atient was transferred back to the holding area for observation. To be discharge d later on today on medical therapy and risk factor modification. Dictated By: Radha Salinas MD WT: CATH:JUAN ALBERTO/PERLA/EVA Conf#: [id number]/DID#: [id number] Authenticated by Radha Salinas MD On 03/06 04:08:19 PM at 1608 PATIENT NAME: RUTH ANN MONTEJO 2019-03-20 09:22:00-00:00 [id number] [place] [address] PATIENT NAME: RUTH ANN MONTEJO ADMIT ANA E: 03/20/19 ACCOUNT NO: [id number] ROOM NO: AGE: 73 REPORT TYPE: ELECTROCARDIOGRAM SEX: F ADMITTING PHYSICIAN: ATTENDING PHYSICIAN:Radha Salinas MD Order: [id number] Test Reason : PVD Test Date/Time Stamp: FriMar 20 2019 09:22:52 Blood Pressure : / mmHG Vent. Rate : 080 BPM Atrial Rate : 080 BPM P-R Int : 178 ms QRS Dur : 090 ms QT Int : 384 ms P-R-T Axes : 049 -08 174 degree s QTc Int : 442 ms Normal sinus rhythm T wave abnormality, consider inferolateral ische arie Abnormal ECG No previous ECGs available Confirmed by RADHA SALINAS ([id number]) on 03/20/2019 2:06:01 PM Referred By: Radha Salinas Confirmed by:RADHA LINDSEY at 1406 PATIENT NAME: RUTH ANN MONTEJO 2019-03-19 07:29:00-00:00 [id number] [place] [address] PATIENT NAME: RUTH ANN MONTEJO ADMIT ANA E: ACCOUNT NO: [id number] ROOM NO: AGE: 73 REPORT TYPE: HISTORY AND PHYSICAL SEX: F ADMITTING PHYSICIAN: ATTENDING PHYSICIAN:Radha Salinas MD PATIENT NAME: RUTH ANN MONTEJO ADMIT ANA E:03/20/2019 ADMISSION DATE: 03/20/2019 LACING CUTTER: Radha Salinas MD REASON FOR ADMISSION: Revascularization of sever e disease that is symptomatic of the right SFA. HISTORY OF PRESENT ILLNESS: Ruth Ann is a 73-year- old patient of mine with extensive atherosclerotic cardiovascular disease history, who had a recent admission and history and physical on 02/06/2019 . At that time, she presented with symptomatic peripheral arterial dis ease with bilateral claudications. She was found to have occluded left SFA and 80% right common iliac lesions as well as 80% right SFA lesions. The patient underwent revascularization of the left SFA with stenting and then t he right common iliac with stenting and she is back today for revascularization of the right SFA. Daphney schmitt had symptomatic bilateral peripheral arterial disease. She has als o extensive history of coronary artery disease, dilated ischemic cardiomyopathy and mul tiple cardiovascular risk factors detailed in the previous dictation. Sinc e her last admission, she had an echocardiogram on 03/15/2019 for symptomatic congestive heart failure and cardiomyopathy. Her ejection fraction remains un changed around 40%. The patient was noncompliant with her diuretic thera py at that time. PAST MEDICAL HISTORY: Remarkable for cor onary artery disease, previous bypass, peripheral arterial disease with multiple previo us evaluations and revascularizations, hyperlipidemia, mitral regur gitation, diabetes, aortic insufficiency, COPD, reflux disease, depression, and allergies. PAST SURGICAL HISTORY: She had previous bypass a nd peripheral arterial procedures described above. ALLERGIES: CIPROFLOXACIN GIVES HER SIDE EFFECTS. MEDICATIONS: Plavix, losartan, atorvastatin, ome ga 3, metoprolol, furosemide, Gabapentin. She is noncompliant with some of her medications. SOCIAL HISTORY: There is no history of smoking, alcohol, or street drug use. FAMILY HISTORY: Positive for atherosclerotic car diovascular disease. REVIEW OF SYSTEMS: Remarkable for the above and unchanged from recent evaluation. No acute GI or symptoms. No TIAs or strokes. PATIENT NAME: RUTH ANN MONTEJO PHYSICAL EXAMINATION: GENERAL: Reveals a pleasant elderly lady in no a cute distress. VITAL SIGNS: Blood pressure is 103/65, p ulse 100 and regular, respiratory rate 18 and unlabored, temperature afebrile. HEENT: Head, atraumatic and normocephalic. Eyes and ENT examination within normal for age. NECK: Supple. Mild jugular venous elevation. No bruits or lymphadenopathy. Normal upstroke. LUNGS: Decreased air entry, otherwise clear and resonant. HEART: Regular rate and rhythm with II/ systol ic ejection murmur and I/ diastolic murmur at the mitral and aortic area r espectively. No gallops. ABDOMEN: Soft. No tenderness, no organomegaly, n o masses or bruits. EXTREMITIES: 1+ pulses on the right, 2+ on the l eft. No edema, cyanosis, or clubbing. NEUROLOGIC: Alert and oriented x3. The examinati on appears to be nonfocal. LABORATORY DATA: Pending. Noninvasive cardiovasc ular workup enclosed. IMPRESSION: This is a 73-year-old lady with adva nced atherosclerotic cardiovascular disease, know n coronary artery disease, previous bypass, dilated ischemic cardiomyopathy, severe bilateral periph eral arterial disease, status post recent revascularization of the lef t lower extremity and the right common iliac. She is here for revascularization of the right SFA. The recommendation is to pro ceed with the above-mentioned procedures. The risks and benefits of the planned procedures were desc ribed in detail with the patient. She is willing to proceed. The patient was again advised compliance with her medical therapy and risk factor modific ation. Dictated By: Radha Salinas MD WT: HP:JOSEPH/PERLA/EVA Conf#: [id number]/DID#: [id number] Authenticated and Edited by Radha Salinas MD On 03/19/19 6:35:30 PM at 1837 PATIENT NAME: RUTH ANN MONTEJO 2019-02-06 12:12:00-00:00 [id number] [place] [address] PATIENT NAME: RUTH ANN MONTEJO ADMIT ANA E: 02/06/19 ACCOUNT NO: [id number] ROOM NO: AGE: 73 REPORT TYPE: CARDIAC CATHETERIZATION REPORT SEX: F ADMITTING PHYSICIAN: ATTENDING PHYSICIAN:Radha Salinas MD PROCEDURE DATE: CARDIOVASCULAR PROCEDURE LACING CUTTER: Radha Salinas MD INDICATION FOR PROCEDURE: Left foot ischemia in a patient with severe peripheral arterial disease and previous interventions and known atherosclerotic cardiovascular disease. TITLE OF THE PROCEDURE: Abdominal and bilateral selective iliofemoral angiograms, first order angiogram of the right l ower extremity, third order angiogram of the left lower extremity, orbital atherectomy, ADMINISTRATIVE ASSISTANT OFFICE MANAGER and stenting of the left SFA x3, ADMINISTRATIVE ASSISTANT OFFICE MANAGER and stenting of the right c ommon iliac closing device. ESTIMATED BLOOD LOSS: Minimal. COMPLICATIONS: None. CONTRAST: 170 mL. ANESTHESIA: Conscious sedation with Versed and f entanyl and 1% lidocaine for local anesthesia. FINAL DIAGNOSES: Complete occlusion of the left SFA with severe restenosis, patent stent on the right SFA, restenosis and se chicho disease of the right SFA proximal to the stent, worsening lesion of the r ight common iliac at 80% with significant gradient. RECOMMENDATION: The patient is now status post 3 stents of the left SFA after orbital atherectomy and one stent in the right c ommon iliac. ESTIMATED BLOOD LOSS: Minimal. COMPLICATIONS: None. CONTRAST: 170 mL. ANESTHESIA: Conscious sedation with Versed and f entanyl and 1% lidocaine for local anesthesia. FINAL DIAGNOSES: Successful revascularization of the left SFA and the right PATIENT NAME: RUTH ANN MONTEJO common iliac. RECOMMENDATION: The recommendation is to bring the patient back in a few weeks for revascularization of the right SFA. PROCEDURE IN DETAIL: After informed consent, the patient was brought to the cardiac catheterization lab in a stable fasting nonsedated state. She was prepped and draped in the usual sterile fashion. After conscious sedation, 1% lidocaine was administered to the right common f emoral artery area for local anesthesia. A 6-Tunisian sheath was placed in the right common femoral artery using standard techniques and fluoroscopy. It wa s very hard to access the calcified right common femoral artery. I had to use the dilator first and then use the [place] Advantage wire to be able to push the sheath into the aorta. There was a significant gradient across the righ t common iliac lesion and the wire was difficult to cross the iliac lesion. I did stent that lesion at the end of the procedure, but be fore that, I did an abdominal angiogram that showed 40% right renal artery stenosis, 30% distal aort a plaquing. The left common femoral was 40%. The right common iliac as menti oned above was about 80% with significant gradient. Abdominal and followup ang iograms of the left lower extremity were followed by selective third order angiogram of the left lower extremity that showed the SF A to be 95% blocked, followed by 99%, and then 100% occluded with very poor distal flow. I was able after using an TrailBlazer catheter and the [place] Advantage wire to wire al l the way down to the distal vessels and I confirmed the intraluminal placeme nt of the wire. Then, I exchanged the wire using the Trailblazer to the Viper wire advanced. Then, I did a Diamondback orbital at herectomy throughout the left SFA that was followed by 3 stenting. Three stents, the first one was 6 x 120 Epic vascular distal, the second one in the middle was 7 x 120 and the last one was 7 x 120 proximal. These were overlapping stents and they were post dilated with an EverCross 6 x 200 balloon that resulted in less than 0% residu al and good distal flow and 3-vessel runoff. I left a small segment of the p roximal SFA with 40% plaque that was not covered by stent, but distally ever ything was acceptable. The patient has severe distal small vessel d isease. Then, I pulled back the sheath and stent in the right commo n iliac with a [employer] 8 x 17 iliac stent that resulted in 0% residual and a small local nonocclusive dissection. I used the balloon of the stent and stayed 2 mi nutes in that area at a lower pressure and the dissection remained stable. Selective an giograms of the right lower extremity showed a patent di stal SFA stent diffuse distal disease with 3-vessel runoff. There are 2 lesions proximal to the sten t 80% both that need to be intervened upon probably with stenting at a late r date. The right groin was sealed using Angio-Seal. There were no complicat ions. The patient tolerated the procedure well. She was transferred back to the holding area for observation and to be discharged later on today on medical therapy and risk factor modification. Dictated By: Radha Salinas MD WT: CATH:JUAN ALBERTO/PERLA/EVA Conf#: [id number]/DID#: [id number] PATIENT NAME: RUTH ANN MONTEJO Authenticated by Radha Salinas MD On 01/2019 02:11:51 PM at 1412 PATIENT NAME: RUTH ANN MONTEJOEZ 2019-02-06 07:31:00-00:00 [id number] [place] [address] PATIENT NAME: RUTH ANN MONTEJOEZ ADMIT ANA E: 02/06/19 ACCOUNT NO: [id number] ROOM NO: AGE: 73 REPORT TYPE: ELECTROCARDIOGRAM SEX: F ADMITTING PHYSICIAN: ATTENDING PHYSICIAN:Radha Salinas MD Order: [id number] Test Reason : PVD Test Date/Time Stamp: FriFeb 06 2019 07:31:55 Blood Pressure : / mmHG Vent. Rate : 060 BPM Atrial Rate : 060 BPM P-R Int : 194 ms QRS Dur : 088 ms QT Int : 438 ms P-R-T Axes : 052 064 235 degree s QTc Int : 438 ms Sinus rhythm with premature atrial complexes T wave abnormality, consider inferolateral ische arie Abnormal ECG No previous ECGs available Confirmed by RADHA SALINAS ([id number]) on 02/06/2019 1 2:18:35 PM Referred By: Radha Salinas Confirmed by:RADHA LINDSEY at 1218 PATIENT NAME: RUTH ANN MONTEJO 2020-02-04 18:23:00-00:00 [id number] [place] [address] PATIENT NAME: RUTH ANN MONTEJO ADMIT ANA E: 02/06/19 ACCOUNT NO: [id number] ROOM NO: AGE: 73 REPORT TYPE: HISTORY AND PHYSICAL SEX: F ADMITTING PHYSICIAN: ATTENDING PHYSICIAN:Radha Salinas MD PATIENT NAME: RUTH ANN MONTEJO ADMIT DATE: ADMISSION DATE: 02/06/2019 ADMISSION HISTORY AND PHYSICAL REASON FOR ADMISSION: Abdomi nal and peripheral angiograms and revascularization of the left lower extremity in a patient with ad vanced atherosclerotic cardiovascular disease. HISTORY OF PRESENT ILLNESS: Ruth Ann is a 73-year- old lady with advanced atherosclerotic cardiovascul ar disease and multiple cardiovascular risk factors, who recently came back with ischemia of her left lower extremity. The patient has been doing well for several months and she c nuria in with disabling claudication and discomfort of the left lower ex tremity. Her left ankle-brachial index was 0.22. The right ankle-b rachial index was 1.11. The patient has had several previous interventions o n both her lower extremities. Her last procedure was done at [facility] on 08/15/2018. At that time, her left leg had 50% residual. Her ri ght leg was 100% occluded and underwent revascularization. Reports are enclose d. The patient has had 100% occlusion of her left lower extremity in the past and underwent atherectomy and drug-coated balloon. She has not received any st ents to her left lower extremity. Details of the previous procedures in July 25 and August 2018 are enclosed in the records. The patient is denying any chest pains. She has dyspnea on mild exertion. She has known three-ve ssel coronary artery disease and previous bypass. Her last cardiac ca theterization on June 2017 showed patent grafts, 2/4, NIÑO to the LAD and vein gra ft to the right. She had a patent left subclavian stent. Her last carotid D oppler showed less than 50% disease. She has had an echocardiogram in March 07 showing moderate mitral regurgitation, mild aortic insufficiency . Ejection fraction around 40% to 50%, mild pulmonary hypertension. She has known dilat ed ischemic cardiomyopathy. She has had a nuclear stress test back in 2016, showing ejection fraction of 13% and at that time she had ischemia. She is not mane ving any angina at this time. PAST MEDICAL HISTORY: Remark able for known coronary artery disease and previous bypass, peripheral arterial disease with multipl e previous evaluations, hyperlipidemia, mitral regur gitation, diabetes, aortic insufficiency, COPD, acid reflux, depression, and allergies. PAST SURGICAL HISTORY: She has had bypass surger y and the peripheral revascularization procedures detailed above. PATIENT NAME: RUTH ANN MONTEJO ALLERGIES: CIPROFLOXACIN GIVES HER SIDE EFFECTS. MEDICATIONS: Include Plavix 75 mg daily, losarta n 25 mg daily, insulin, atorvastatin 40 mg daily, omega 3, calcium, fish oil, metoprolol 50 mg daily, aspirin, furosemide 40 mg daily, gabapentin twic e a day. She takes several other p.r.n. medications detailed in the chart. SOCIAL HISTORY: The patient denies smoking, alco hol, or street drug use. FAMILY HISTORY: Positive for atherosclerotic car diovascular disease. REVIEW OF SYSTEMS: Remarkable for headaches, all ergies, decreased hearing, difficulty swallowing, generalized weakness, ast hma, cough, constipation alternating with diarrhea. The above-mentioned p eripheral vascular disease symptoms. No acute GI or symptoms. No TIAs or strokes. PHYSICAL EXAMINATION: GENERAL: Reveals a pleasant elderly lady in no a cute distress. VITAL SIGNS: Blood pressure 98/54, pulse 87 and regular, respiratory rate 16 unlabored, temperature afebrile. HEENT: Head, atraumatic and normocephalic. Eyes ENT examination within normal for age. NECK: Supple. No jugular venous distention, brui ts, or lymphadenopathy. Normal upstroke. LUNGS: Decreased air entry, otherwise clear and resonant. HEART: Regular rate and rhythm with II/ systol ic murmur at 1/6 diastolic murmur at the mitral and aortic area respectivel y. No gallops. ABDOMEN: Soft. No tenderness, no organomegaly, n o masses or bruits. EXTREMITIES: No pulses on the left lower extremity, 2+ on the right. No edema, cyanosis, or clubbing. NEUROLOGIC: Alert and oriented x3. Examination a ppears to be nonfocal. LABORATORY DATA: Pending. Noninvasive cardiovasc ular workup enclosed. IMPRESSION: This is a 73-year-old lady with adva nced atherosclerotic cardiovascular disease, know n coronary artery disease, previous bypass, dilated ischemic cardiomyopathy, severe bilateral periph eral vascular disease status post revascularization of both legs in 2 018. Now, she comes in with restenosis of her left lower extremity, most likely the SFA. She is here for abdominal and bilateral iliofemoral angiograms and possible re vascularization of the left lower extremity. The recommendation is to proceed with th e above. The risks and benefits of the planned procedures were disc ussed in detail with the patient and she is willing to proceed. Rest as per orders. Dictated By: Radha Salinas MD WT: HP:JOSEPH/PERLA/EVA PATIENT NAME: TORI MONTEJODAVID CARDENAS Conf#: [id number]/DID#: [id number] Authenticated and Edited by Radha Salinas MD On 02/06/19 6:14:31 AM at 0629 PATIENT NAME: NIKIARUTH ANN
[2023-03-25] MEDS ORDERED: NA CHLORIDE 0.9% 1,000 ML ONE (16:52)
[2023-03-25 17:03] LABS: Absolute Lymphocytes (CBC) 1.1 K/uL (0.7-4.9); Hematocrit 30.5 % (36.0-45.0); Lymphocytes % 25.4 % (15.3-44.8); MCV 89.7 fL (80-100); MPV 8.8 fL (7.6-11.3)
[2023-03-25 17:27] LABS: Potassium 5.2 mEq/L (3.5-5.1); Troponin High Sensitivity 13.9 pg/mL (<58.9)
--- NOTE | 2023-03-25 17:50 | RAD REPORT ---
EXAM DESCRIPTION: CT - Head C Spine Cap Wo Con - 03/25/2023 5:20 pm CLINICAL HISTORY: Head and neck injury with chest and abdominal pain status post fall TECHNIQUE: Computed axial tomography of head, neck, chest, abdomen and pelvis obtained. IV and oral contrast not requested. Coronal and sagittal reconstruction performed. All CT scans are performed using dose optimization technique as appropriate and may include automated exposure control or mA/KV adjustment according to patient size. COMPARISON: October [address] abdomen 2019 FINDINGS: An intracranial bleed is not seen. The ventricles are normal in caliber. An extra-axial fluid collection is not noted. . Fluid within the right maxillary sinus may indicate acute sinusitis A cervical fracture is not seen. No dislocation is noted. Mild posterior subluxation C5 on C6 The evaluation of mediastinum, gabriele, vessels, solid organs and bowel are limited secondary to the lac k of contrast administration. A mediastinal hematoma is not noted. A pleural effusion is not seen. A lung contusion is not present. The liver,spleen, pancreas, adrenals,kidneys and bladder do not demonstrate an acute traumatic injury Right anterolateral abdominal wall hernia containing large and small bowel is again demonstrated. No bowel obstruction Moderate chronic compression: L3 vertebral body IMPRESSION: No acute intracranial abnormality is seen. A cervical fracture is not visualized. If the patient continues have symptoms to suggest intracrania l/spinal cord pathology MRI be recommended No acute traumatic abnormality involving the chest/abdomen/pelvis.
--- NOTE | 2023-03-25 17:52 | RAD REPORT ---
EXAM DESCRIPTION: Ángel Single View03/25/2023 3:48 pm CLINICAL HISTORY: Chest pain COMPARISON: October 2022 FINDINGS: The lungs appear clear of acute infiltrate. The heart is mildly enlarged. Postsurgical ch anges involve chest
[2023-03-25 18:19] LABS: Urine Bacteria <20 /HPF (<20); Urine Bilirubin NEGATIVE (Negative); Urine Blood Negative (Negative); Urine Clarity Clear (Clear); Urine Color Colorless (Yellow); Urine Glucose 4+ (Over) (Negative); Urine Mucus Slight /HPF (None Seen); Urine Protein NEGATIVE (Negative); Urine RBC <5 /HPF (None Seen); Urine Urobilinogen Normal (Normal)
[2023-03-25] MEDS ORDERED: ASPIRIN 81 MG CHEWABLE TABLET ONE (18:49)
[2023-03-25] MEDS ORDERED: FAMOTIDINE 20 MG/2 ML VIAL IV ONE (18:49)
--- NOTE | 2023-03-25 18:49 | EDPHYS ---
Physician Documentation [facility] Name: Alyson Ibarra Age: 77 yrs Sex: Female : 1945 Arrival Date: 03/25/2023 Time: 15:25 Bed 18 Private MD: ED Physician Jarrod Bonner HPI: 03/25 18:35 This 77 yrs old Female presents to ER via EMS with complaints of Fall Injury. carey 18:35 Details of fall: The patient fell from an upright position, while walking. Onset: The carey symptoms/episode began/occurred just prior to arrival. Associated injuries: The patient sustained no obvious injury. Severity of symptoms: At their worst the symptoms were mild, in the emergency department the symptoms are unchanged. The patient has experienced similar episodes in the past, a few times. Historical: - Allergies: 15:29 Cipro; iw - PMHx: 15:29 CAD; Hyperlipidemia; Hypertension; Diabetes - IDDM; COPD; neuropathy; CHF; iw - PSHx: 15:29 Heart Stents; iw - Immunization history:: Client reports having NOT received the Covid vaccine. - Social history:: Smoking status: Patient denies any tobacco usage or history of. ROS: 18:36 Constitutional: Negative for fever, chills, and weight loss, Eyes: Negative for injury, carey pain, redness, and discharge, ENT: Negative for injury, pain, and discharge, Neck: Negative for injury, pain, and swelling, Respiratory: Negative for shortness of breath, cough, wheezing, and pleuritic chest pain, Abdomen/GI: Negative for abdominal pain, nausea, vomiting, diarrhea, and constipation, Back: Negative for injury and pain, : Negative for injury, bleeding, discharge, and swelling, MS/Extremity: Negative for injury and deformity, Neuro: Negative for headache, weakness, numbness, tingling, and seizure, Psych: Negative for depression, anxiety, suicide ideation, homicidal ideation, and hallucinations, Allergy/Immunology: Negative for hives, rash, and allergies, Endocrine: Negative for neck swelling, polydipsia, polyuria, polyphagia, and marked weight changes, Hematologic/Lymphatic: Negative for swollen nodes, abnormal bleeding, and unusual bruising. 18:36 Cardiovascular: Positive for chest pain, of the chest. 18:36 Neuro: Positive for near syncope, weakness. Exam: 18:36 Constitutional: This is a well developed, well nourished patient who is awake, alert, carey and in no acute distress. Head/Face: Normocephalic, atraumatic. Eyes: Pupils equal round and reactive to light, extra-ocular motions intact. Lids and lashes normal. Conjunctiva and sclera are non-icteric and not injected. Cornea within normal limits. Periorbital areas with no swelling, redness, or edema. ENT: Nares patent. No nasal discharge, no septal abnormalities noted. Tympanic membranes are normal and external auditory canals are clear. Oropharynx with no redness, swelling, or masses, exudates, or evidence of obstruction, uvula midline. Mucous membranes moist. Neck: Trachea midline, no thyromegaly or masses palpated, and no cervical lymphadenopathy. Supple, full range of motion without nuchal rigidity, or vertebral point tenderness. No Meningismus. Chest/axilla: Normal chest wall appearance and motion. Nontender with no deformity. No lesions are appreciated. Respiratory: Lungs have equal breath sounds bilaterally, clear to auscultation and percussion. No rales, rhonchi or wheezes noted. No increased work of breathing, no retractions or nasal flaring. Abdomen/GI: Soft, non-tender, with normal bowel sounds. No distension or tympany. No guarding or rebound. No evidence of tenderness throughout. Back: No spinal tenderness. No costovertebral tenderness. Full range of motion. Skin: Warm, dry with normal turgor. Normal color with no rashes, no lesions, and no evidence of cellulitis. MS/ Extremity: Pulses equal, no cyanosis. Neurovascular intact. Full, normal range of motion. Neuro: Awake and alert, GCS 15, oriented to person, place, time, and situation. Cranial nerves II-XII grossly intact. Motor strength 5/5 in all extremities. Sensory grossly intact. Cerebellar exam normal. Normal gait. Psych: Awake, alert, with orientation to person, place and time. Behavior, mood, and affect are within normal limits. 18:36 Cardiovascular: Rate: normal, Rhythm: regular, Pulses: Pulses are 4+ in bilateral radial, brachial, femoral, popliteal, posterior tibial and and dorsalis pedis arteries.. Heart sounds: normal, Edema: is not appreciated, JVD: is not appreciated. 18:36 ECG was reviewed by the Attending Physician. Vital Signs: 15:28 BP 141 / 102; Pulse 82; Resp 16; Temp 98.4; Pulse Ox 100% ; Weight 80.74 kg; Height 5 iw ft. 5 in. ; Pain 0/10; 16:30 BP 130 / 52; Pulse 72; Resp 16; Pulse Ox 97% on R/A; db 17:30 BP 125 / 49; Pulse 75; Resp 16; Pulse Ox 100% on R/A; db 18:15 BP 129 / 51; Pulse 72; Resp 18; Pulse Ox 96% on R/A; db 19:45 BP 121 / 52; Pulse 71; Resp 16 S; Pulse Ox 100% on R/A; ha1 15:28 Body Mass Index 29.62 (80.74 kg, 165.1 cm) iw 15:28 Pain Scale: Adult iw MDM: 15:49 Patient medically screened. carey 18:43 HEART Score: History: Slightly Suspicious (0), ECG: Non specific repolarization carey disturbance / LBTB / PM (1), Age: > or = 65 years (2), Risk Factors: > or = 3 Risk factors for atherosclerotic disease (2), [Hypercholesterolemia] [Hypertension] [DM] [+ Family HX] [Obesity] Troponin: < or = 1 x Normal Limit (0). Differential diagnosis: multiple trauma, sprain, strain, idiopathic syncope, vasovagal episode. The patient was given aspirin in the Emergency Department. MIAN Risk Score: 1 - patient's age is greater or equal to 65 years, 1 - Three or more CAD risk factors, 1- Known CAD. Data reviewed: vital signs, nurses notes, EMS record, lab test result(s), EKG, radiologic studies, CT scan, plain films. Consideration of Admission/Observation Patient was admitted/placed on observation. Escalation of care including admission/observation considered. I considered the following discharge prescriptions or medication management in the emergency department Medications were administered in the Emergency Department. See MAR. Test considered but Not performed: MRI: NO MRI BRAIN. 03/25 15:30 Order name: Basic Metabolic Panel; Complete Time: 18:25 iw 03/25 15:30 Order name: CBC with Diff; Complete Time: 18:57 iw 03/25 15:30 Order name: Troponin HS; Complete Time: 18:25 iw 03/25 15:49 Order name: Lipase; Complete Time: 18:25 [facility] 03/25 15:49 Order name: Urinalysis W/Microscopic; Complete Time: 18:25 [facility] 03/25 18:43 Order name: PT-INR [facility] 03/25 18:43 Order name: BNP [facility] 03/25 18:43 Order name: Magnesium [facility] 03/25 18:55 Order name: CBC Smear Scan; Complete Time: 18:57 EDMI 03/25 19:09 Order name: Glucose, Ancillary Testing EDMI 03/25 15:30 Order name: XRAY Chest (1 view); Complete Time: 18:25 03/25 15:49 Order name: CT Traumagram (Head C Spine CAP wo con); Complete Time: 18:25 [facility] 03/25 15:30 Order name: EKG; Complete Time: 15:31 03/25 15:30 Order name: Cardiac monitoring; Complete Time: 16:53 03/25 15:30 Order name: EKG - Nurse/Tech; Complete Time: 17:07 03/25 15:30 Order name: IV Saline Lock; Complete Time: 16:53 03/25 15:30 Order name: Labs collected and sent; Complete Time: 16:53 03/25 15:30 Order name: O2 Per Protocol; Complete Time: 16:53 03/25 15:30 Order name: O2 Sat Monitoring; Complete Time: 16:53 iw EC:36 Rate is 74 beats/min. Rhythm is regular. QRS [place] is Normal. DC interval is normal. QT carey interval is normal. No Q waves. T waves are Inverted in leads I, aVL, V5, V6. ST Segment is depressed in leads II, aVF. Clinical impression: NSR w/ Non-specific ST/T Changes. Interpreted by me. Reviewed by me. Administered Medications: 16:53 Drug: NS 0.9% IV 1000 ml Route: IV; Rate: 1 bolus; Site: right antecubital; db 18:46 Drug: Aspirin PO Chewable Tablet 162 mg Route: PO; db 18:47 Drug: Famotidine IVP 20 mg Route: IVP; Site: right antecubital; db 19:02 Drug: Insulin Regular Human Sub-Q 10 units {Co-Signature: ha1 (Apoorva Rubin RN).} db Route: Sub-Q; Site: right upper arm; 19:02 Not Given (Duplicate Order): Insulin Regular Human IVP 10 units IVP once carey 19:05 Drug: Enoxaparin Sub-Q 1 mg/kg {Note: left.} Route: Sub-Q; Site: abdomen; db 19:09 Drug: Enoxaparin Sub-Q 1 mg/kg Route: Sub-Q; Site: abdomen; db Disposition Summary: 03/25/23 18:48 Hospitalization Ordered Hospitalization Status: Observation carey Provider: Pj Sykes cha Location: Telemetry/MedSurg (observation) carey Condition: Fair carey Problem: new carey Symptoms: have improved carey Bed/Room Type: Standard carey Room Assignment: 207(03/25/23 19:38) mw Diagnosis - Unspecified kidney failure carey - Type 1 diabetes mellitus with hyperglycemia carey - Obesity, unspecified caery - Chest pain, unspecified carey - Abnormal electrocardiogram [ECG] [EKG] carey - Hyperkalemia carey Forms: - Medication Reconciliation Form carey - SBAR form carey Signatures: Dispatcher [employer] EDMS Alyson Troncoso RN RN mw Anderson, Corey, MD MD cha Williams, Irene, RN LINO iw Davy Hernandez, WELDING MACHINE OPERATOR ELECTROSLAG-C WELDING MACHINE OPERATOR ELECTROSLAG-Cla1 Shelbie Ojeda RN RN db Ayala, Heidy RN ha1 Corrections: (The following items were deleted from the chart) 15:29 15:29 PMHx: Myocardial infarction; [facility] 16:09 15:31 Head C Spine MPR Wo Con+CT.RAD.BRZ ordered. EDMS EDMS 19:38 18:48 carey mw
--- NOTE | 2023-03-25 18:49 | ER ---
Nurse's Notes [facility] Name: Alyson Ibarra Age: 77 yrs Sex: Female : 1945 Arrival Date: 03/25/2023 Time: 15:25 Bed 18 Private MD: Diagnosis: Unspecified kidney failure;Type 1 diabetes mellitus with hyperglycemia;Obesity, unspecified;Chest pain, unspecified;Abnormal electrocardiogram [ECG] [EKG];Hyperkalemia Presentation: 03/25 15:26 Chief complaint: Patient states: i was walking to the kitchen and i felt my legs get iw weak and my knees gave out, fell backwards and hit your head on cement tile , no LOC, not on blood thinners, she still feel weak and dizzy . EMS reports her BS was over 500 and they gave fluids. 15:26 Acuity: LETY 3 iw 15:26 Method Of Arrival: EMS: [facility] iw 15:27 Care prior to arrival: IV initiated. 20 GA, in the right antecubital area. iw 15:28 Coronavirus screen: At this time, the client does not indicate any symptoms associated iw with coronavirus-19. Ebola Screen: Patient negative for fever greater than or equal to 101.5 degrees Fahrenheit, and additional compatible Ebola Virus Disease symptoms Patient denies exposure to infectious person. Patient denies travel to an Ebola-affected area in the 21 days before illness onset. No symptoms or risks identified at this time. Initial Sepsis Screen: Does the patient meet any 2 criteria? No. Patient's initial sepsis screen is negative. Does the patient have a suspected source of infection? No. Patient's initial sepsis screen is negative. Risk Assessment: Do you want to hurt yourself or someone else? Patient reports no desire to harm self or others. Onset of symptoms was March 25, 2023. Triage Assessment: 17:09 General: Appears in no apparent distress. db Historical: - Allergies: 15:29 Cipro; iw - PMHx: 15:29 CAD; Hyperlipidemia; Hypertension; Diabetes - IDDM; COPD; neuropathy; CHF; iw - PSHx: 15:29 Heart Stents; iw - Immunization history:: Client reports having NOT received the Covid vaccine. - Social history:: Smoking status: Patient denies any tobacco usage or history of. Screenin:58 [facility] ED Fall Risk Assessment (Adult) History of falling in the last 3 months, db including since admission Yes- single mechanical fall (1 pt) Confusion or Disorientation No (0 pts) Intoxicated or Sedated No (0 pts) Impaired Gait No (0 pts) Mobility Assist Device Used No (0 pt) Altered Elimination No (0 pt) Score/Fall Risk Level 0 - 2 = Low Risk Oriented to surroundings, Maintained a safe environment. Abuse screen: Denies threats or abuse. Denies injuries from another. Nutritional screening: No deficits noted. Tuberculosis screening: No symptoms or risk factors identified. Assessment: 16:58 Reassessment: Patient appears in no apparent distress at this time. Patient and/or db family updated on plan of care and expected duration. Pain level reassessed. Patient is alert, oriented x 3, equal unlabored respirations, skin warm/dry/pink. states fell and hit head today. Denies LOC. General: Appears in no apparent distress. comfortable, Behavior is calm, cooperative. Pain: Complains of pain in scalp. Neuro: Level of Consciousness is awake, alert, obeys commands, Oriented to person, place, time, situation, Moves all extremities. Speech is normal. 18:35 Reassessment: Patient appears in no apparent distress at this time. Patient and/or db family updated on plan of care and expected duration. Pain level reassessed. Patient is alert, oriented x 3, equal unlabored respirations, skin warm/dry/pink. 19:30 General: Appears comfortable, Behavior is calm, cooperative. Pain: Denies pain. Neuro: ha1 Level of Consciousness is awake, alert, obeys commands, Oriented to person, place, time, situation. Cardiovascular: Patient's skin is warm and dry. Respiratory: Airway is patent Respiratory effort is even, unlabored, Respiratory pattern is regular, symmetrical. Vital Signs: 15:28 BP 141 / 102; Pulse 82; Resp 16; Temp 98.4; Pulse Ox 100% ; Weight 80.74 kg; Height 5 iw ft. 5 in. ; Pain 0/10; 16:30 BP 130 / 52; Pulse 72; Resp 16; Pulse Ox 97% on R/A; db 17:30 BP 125 / 49; Pulse 75; Resp 16; Pulse Ox 100% on R/A; db 18:15 BP 129 / 51; Pulse 72; Resp 18; Pulse Ox 96% on R/A; db 19:45 BP 121 / 52; Pulse 71; Resp 16 S; Pulse Ox 100% on R/A; ha1 15:28 Body Mass Index 29.62 (80.74 kg, 165.1 cm) iw 15:28 Pain Scale: Adult iw ED Course: 15:26 Patient arrived in ED. iw 15:27 Triage completed. iw 15:29 Arm band placed on. iw 15:48 Jarrod Bonner MD is Attending Physician. carey 15:50 XRAY Chest (1 view) In Process Unspecified. EDMS 16:53 Shelbie Ojeda, RN is Primary Nurse. db 16:53 Inserted saline lock: 20 gauge in right antecubital area, using aseptic technique. db Blood collected. 16:58 Patient has correct armband on for positive identification. Bed in low position. Call db light in reach. Side rails up X2. Client placed on continuous cardiac and pulse oximetry monitoring. NIBP monitoring applied. 17:21 CT Traumagram (Head C Spine CAP wo con) In Process Unspecified. EDMS 17:32 Notified ED physician of a critical lab result(s). glucose 429. mb9 18:46 Pj Sykes MD is Hospitalizing Provider. carey 20:02 No provider procedures requiring assistance completed. Patient admitted, IV remains in ha1 place. Administered Medications: 16:53 Drug: NS 0.9% IV 1000 ml Route: IV; Rate: 1 bolus; Site: right antecubital; db 18:46 Drug: Aspirin PO Chewable Tablet 162 mg Route: PO; db 18:47 Drug: Famotidine IVP 20 mg Route: IVP; Site: right antecubital; db 19:02 Drug: Insulin Regular Human Sub-Q 10 units {Co-Signature: ha1 (Apoorva Rubin RN).} db Route: Sub-Q; Site: right upper arm; 19:02 Not Given (Duplicate Order): Insulin Regular Human IVP 10 units IVP once carey 19:05 Drug: Enoxaparin Sub-Q 1 mg/kg {Note: left.} Route: Sub-Q; Site: abdomen; db 19:09 Drug: Enoxaparin Sub-Q 1 mg/kg Route: Sub-Q; Site: abdomen; db Medication: 16:58 VIS not applicable for this client. db Outcome: 18:48 Decision to Hospitalize by Provider. carey 20:02 Admitted to Med/surg accompanied by tech, family with patient, via wheelchair, room ha1 207, with chart, Report called to LINO Cole 20:02 Condition: stable 20:02 Discharge instructions given to patient, family, Instructed on the need for admit, Demonstrated understanding of instructions. 20:04 Patient left the ED. ha1 Signatures: Dispatcher [employer] EDJarrod Carrasco MD MD cha Williams, Irene, RN RN iw Apoorva Rubin RN RN ha1 Shelbie Ojeda RN RN db Breneman, Inessa Helton RN RN mb9 Apoorva Rubin RN ha1 Corrections: (The following items were deleted from the chart) 15:28 15:26 Chief complaint: Patient states: i was walking to the kitchen and i felt my legs iw get weak and my knees gave out, fell backwards and hit your head on cement tile , no LOC, not on blood thinners, she still feel weak and dizzy iw 15:29 15:29 PMHx: Myocardial infarction; iw iw
[2023-03-25 18:55] LABS: Blood Morphology Comment NOT SEEN (NOT SEEN); Platelet Estimate DECR; White Blood Cell Scan OK (OK)
[2023-03-25] MEDS ORDERED: ENOXAPARIN 80 MG/0.8 ML SQ ONE (19:03)
[2023-03-25] MEDS ORDERED: INSULIN -REGULAR HUMAN 50 UNIT/0.5 ML ML ONE (19:03)
--- NOTE | 2023-03-25 20:19 | P.HP ---
Certification for Inpatient Patient admitted to: Observation With expected LOS: <2 Midnights Patient will require the following post-hospital care: None Practitioner: I am a practitioner with admitting privileges, knowledge of patient current condition, hospital course, and medical plan of care. Services: Services provided to patient in accordance with Admission requirements found in Title 42 Section 412.3 of the Code of Federal Regulations Patient History Date of Service: 03/25/23 Reason for admission: Fall/syncope History of Present Illness: 77-year-old female with history of chronic systolic congestive heart failure, COPD, insulin-dependent diabetes, CAD with previous CABG, hypertension, hyperlipidemia, CKD 3 presents to the emergency department with chief complaint of fall, near syncope. She reports she has been feeling weak lately felt as if her legs gave out on her and she fell backwards hitting her head, EMS noted her blood sugar was elevated greater than 500. She was given IV fluids. She is evaluated in the emergency department her labs are significant for hemoglobin 10.2 hematocrit 30.5 glucose 429 potassium 5.2 creatinine 1.8baseline creatinine appears to be around 1.4 CT head/C-spine/chest abdomen pelvis was performed which was negative for acute findings. ED prior wishes to admit under observation for JOSIAS, mild hyperkalemia, fall/syncope. Allergies ciprofloxacin [From Cipro] Allergy (Intermediate, Verified 08/28/22 14:56) Itching Home Medications: Insulin Glargine Human [Lantus*] 52 units SQ BID 05/09/18 Losartan Potassium 25 mg PO DAILY 12/27/21 Albuterol Inhaler [Ventolin Inhaler*] 2 puff IH Q6H PRN 08/28/22 Clopidogrel Bisulfate [Plavix*] 75 mg PO DAILY 08/28/22 Furosemide [Lasix*] 40 mg PO DAILY 08/28/22 Hydrocodone Bit/Acetaminophen [Hydrocodon-Acetaminoph 7.5-325] 1 each PO BID 08/28/22 Metoprolol Succinate [Toprol Xl*] 50 mg PO DAILY 08/28/22 Albuterol Neb [Proventil 0.083% Neb Soln] 2.5 mg NEB [id number] PRN #60 amp 09/03/22 Aspirin Chewable [Aspirin Chewable*] 81 mg PO DAILY #30 tab.chew 09/03/22 Ipratropium Neb [Atrovent*] 0.5 mg NEB [id number] #60 amp 09/03/22 Atorvastatin Calcium [Lipitor] 40 mg PO BEDTIME 10/10/22 Albuterol Neb [Proventil 0.083% Neb Soln] 2.5 mg NEB [id number] PRN #60 amp 10/18/22 Amox/Clavulanate [Augmentin 500-125 mg Tab] 500 mg PO BID #20 tab 10/18/22 Benzonatate [Tessalon Perle*] 100 mg PO TID PRN #30 cap 10/18/22 Cyanocobalamin (Vitamin B-12) [Vitamin B12] 5,000 mcg SL DAILY #30 tab 10/18/22 Ferrous Sulfate [Feosol] 325 mg PO BID #60 tab 10/18/22 Folic Acid 1 mg PO DAILY #30 tab 10/18/22 - Past Medical/Surgical History Diabetic: Yes -: Hypertension -: Chronic systolic congestive heart failure -: IDDM -: neuropathy -: hyperlipidemia -: CAD -: AK -: COPD -: cardiac catheterization -: Coronary artery bypass grafting -: Bilateral knee surgery Psychosocial/ Personal History: Patient lives at home with family - Family History Mother -: Diabetes Father -: Diabetes Notes: neuropathy - Social History Alcohol use: No CD- Drugs: No Caffeine use: No Place of Residence: Home Review of Systems 10-point ROS is otherwise unremarkable Cardiovascular: Light Headedness, Other (Syncope) Physical Examination - Physical Exam General: Alert, In no apparent distress, Oriented x3 HEENT: Atraumatic, PERRLA, Mucous membr. moist/pink, EOMI, Sclerae nonicteric Neck: Supple, 2+ carotid pulse no bruit, No LAD, Without JVD or thyroid abnormality Respiratory: Clear to auscultation bilaterally, Normal air movement Cardiovascular: Regular rate/rhythm, Normal S1 S2 Capillary refill: <2 Seconds Gastrointestinal: Normal bowel sounds, No tenderness Musculoskeletal: No tenderness Integumentary: No rashes Neurological: Normal speech, Normal strength at 5/5 x4 extr, Normal tone, Normal affect - Studies Laboratory Data (last 24 hrs) 03/25/23 16:45: Lipase 47 03/25/23 16:45: WBC 4.30, Hgb 10.2 L, Hct 30.5 L, Plt Count 99 L 03/25/23 16:45: Sodium 136, Potassium 5.2 H, BUN 43 H, Creatinine 1.80 H, Glucose 429 H* Assessment and Plan - Plan Assessment: JOSIAS on CKD 3 with mild hyperkalemia Fall/near syncope Chronic systolic congestive heart failure Diabetes mellitus type 2insulin-dependent with hyperglycemia CAD with previous CABG Hypertension Hyperlipidemia COPD Plan: JOSIAS on CKD 3 with mild hyperkalemia Continue gentle IV fluids, hold ALTA/ARB, avoid NSAIDs. Nephrology consult in place, will obtain renal ultrasound. Patient does not follow nephrology outpatient. Fall/near syncope Continue gentle IV fluids, trend troponins, monitor on telemetry. Chronic systolic congestive heart failure Does not appear grossly overloaded at this time, will hold diuretics for tonight. Continue IV fluids. Diabetes mellitus type 2insulin-dependent with hyperglycemia Improvedcontinue ACHS Accu-Chek, sliding scale insulin. A1c in the morning. CAD with previous CABG Hypertension Hyperlipidemia COPD Continue home medications. DVT PPX: Heparin subcu Code status: Full Discharge Plan: Home Plan to discharge in: 24 Hours - Advance Directives Does patient have a Living Will: No Does patient have a Durable POA for Healthcare: No - Code Status/Comfort Care Code Status Assessed: Yes (Full code) Critical Care: No Time Spent Managing Pts Care (In Minutes): 55
[2023-03-25] MEDS ORDERED: ONDANSETRON 4 MG/2 ML VIAL IV PRN (20:26)
[2023-03-25 20:29] VITALS: O2SAT 100
[2023-03-25] MEDS: INSULIN -REGULAR HUMAN 50 UNIT/0.5 ML ML SQ SCH (21:00)
[2023-03-25 21:06] LABS: Protime INR 1.11
[2023-03-25 21:33] LABS: Magnesium 1.7 mg/dL (1.6-2.4)
[2023-03-25] MEDS: NA CHLORIDE 0.9% 1,000 ML IV SCH (21:55)
[2023-03-25] MEDS: HEPARIN 5000 UNIT/ML 1 ML VIAL SQ SCH (22:00)
[2023-03-25 22:34] VITALS: BMI 29.6
[2023-03-26 03:50] LABS: Absolute Lymphocytes (CBC) 1.4 K/uL (0.7-4.9); Hematocrit 25.1 % (36.0-45.0); Lymphocytes % 33.7 % (15.3-44.8); MCV 88.9 fL (80-100); MPV 8.8 fL (7.6-11.3); RBC Red Blood Cell Count 2.82 M/uL (3.86-4.86)
[2023-03-26 04:06] LABS: Potassium 3.9 mEq/L (3.5-5.1); Troponin High Sensitivity 19.4 pg/mL (<58.9)
--- NOTE | 2023-03-26 06:57 | P.PN ---
Date of Service: 03/26/23 Subjective: persistent headache for ~1 month dizzy & lightheaded prior to fall intermittently gets dizzy and lightheaded when standing up, patient does not keep track of how often it happens in past urge to defecate/urinate after eating everyday worsening since October, +diarrhea ROS: 10 point ROS as noted above, otherwise negative Physical Exam: GEN: Alert, oriented, NAD HEENT: Normal conjunctiva, sclera anicteric CV: Regular rate and rhythm, no edema Pulm: Nonlabored respirations on room air ABD: Soft, nontender, nondistended MSK: No joint tenderness Integumentary: No rashes Neuro: Normal speech, normal affect vitals reviewed Problem List: JOSIAS on CKD 3 with mild hyperkalemia Fall/near syncope ?suspected orthostatic hypotension Chronic systolic CHF IDDM2 with hyperglycemia CAD with previous CABG Hypertension Hyperlipidemia COPD JOSIAS on CKD 3 with mild hyperkalemia Continue gentle IVF, hold ALTA/ARB, avoid NSAIDs. Nephrology consulted renal u/s (03/25): unremarkable Fall/near syncope ?suspected Orthostatic hypotension gentle IVF troponins negative x3, monitor on telemetry Chronic systolic CHF Does not appear grossly overloaded at this time, will hold diuretics for tonight. IVF IDDM2 with hyperglycemia ACHS Accu-Chek, sliding scale insulin. A1c in the morning. CAD with previous CABG Hypertension Hyperlipidemia COPD Continue home medications. VTE: Code: Dispo:
[2023-03-26] MEDS: INSULIN -REGULAR HUMAN 50 UNIT/0.5 ML ML SQ SCH ×2 (07:30→12:24)
--- NOTE | 2023-03-26 07:38 | RAD REPORT ---
EXAM DESCRIPTION: US - Renal Ultrasound-Complete - 03/26/2023 1:10 am CLINICAL HISTORY: JOSIAS Flank pain COMPARISON: Renal Ultrasound-Complete dated 10/14/2019 FINDINGS: Both kidneys are normal in size, shape and echotexture. The right kidney measures 9.7 x 4.0 x 3.9 cm. No hydronephrosis, focal mass or perinephric fluid. The left kidney measures 8.5 x 3.6 x 2.8 cm. No hydronephrosis, focal mass or perinephric fluid. The urinary bladder is incompletely distended without gross abnormality seen. IMPRESSION: Unremarkable renal sonogram.
[2023-03-26] MEDS ORDERED: ACETAMINOPHEN 500 MG TAB PO PRN (07:56)
[2023-03-26] MEDS: NA CHLORIDE 0.9% 1,000 ML IV SCH (08:18)
[2023-03-26] MEDS: HEPARIN 5000 UNIT/ML 1 ML VIAL SQ SCH (08:18)
--- NOTE | 2023-03-26 11:32 | CON ---
Date of Consultation: 03/26/2023 Reason For Consultation: Elevated BUN and creatinine, fluid management. History Of Present Illness: This is a pleasant 77-year-old female with significant past medical hist ory of diabetes complicated with neuropathy, no retinopathy, hypertension, hyperlipidemia, CAD status post CABG, status post PTCA, hyperlipidemia, the patient was in her regular state of health. The rafat alberts came to the hospital after fall, near syncope. The patient apparently had blood sugar been not controlled. The patient upon arrival to the hospital found to be low blood pressure and high blood sugar with leukocytosis and elevation in creatinine 1.8. For that reason, we have been consulted. Re viewing the record for the patient, the patient had baseline creatinine back in October 06.4 with GFR of 38. The patient denied taking any nonsteroidal. Denied change in her medication. Denied recent hospitalization. The patient was started on IV fluid, creatinine trended down back to her baseline. Renal ultrasound did not show any hydronephrosis, small size kidney 9.5/8.7. Allergies: TO CIPRO. Home Medications: Include insulin, losartan, albuterol, Lasix, metoprolol, ipratropium, atorvastatin , Augmentin, folic acid, ferrous sulfate. Past Medical History: 1.Chronic kidney disease, baseline creatinine 1.4, GFR of 38 as of October 2022, normal size kidney secondary to diabetes and hypertension nephrosclerosis. 2.Diabetes complicated with neuropathy, no retinopathy. 3.Hypertension. 4.CAD status post CABG, status post PTCA. Past Surgical History: Includes CABG, PTCA, bilateral knee surgery. Family History: Positive for diabetes and hypertension. Social History: Denied smoking. Denied drinking. Denied drugs abuse. Review of Systems: Head and Neck: No red eye. No ear pain. GI: No nausea. No vomiting. : No polyuria. No dysuria. No hematuria. Electromechanical Equipment Tester: No vaginal discharge. Respiratory: No shortness of breath. Cardiovascular: Has presyncope. Musculoskeletal: Generalized weakness. Neuro: Has neuropathy and has presyncope. Physical Examination: General: When I saw the patient; the patient lying on bed comfortable. Vital Signs: Blood pressure 108/63, pulse of 74, afebrile. Chest: Clear to auscultation. Heart: S1, S2. Regular. Abdomen: Soft, nontender. Extremity: No edema. Neurologic: Alert. No focality. Current Medications: Include insulin, IV fluid at 75 per hour. Laboratory Data: As I mentioned back in October; creatinine 1.4, GFR of 38. Yesterday lab; hemoglob in 10.2, potassium 5.2, creatinine 1.8, GFR 28, blood sugar above 400. Today lab data; sodium 142, p otassium 3.9, bicarb 25, BUN 37, creatinine 1.3, GFR of 40, calcium 8.3. Troponin 19. BNP 1300. Ur inalysis negative for infection. Renal ultrasound 9.7/8.5. Assessment And Plan: 1.Acute kidney injury, normal-sized kidney, nonproteinuric, secondary to prerenal secondary to gluco se diuresis superimposed with the Lasix and ARB, recovered, back to baseline, looked to me normal vol ume. I am going to keep holding the Lasix and the losartan. The plan to challenge as outpatient giv en the current low blood pressure, advice for tighter control for her diabetes. 2.Hyperkalemia secondary to renal failure, recovered, resolved. 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 As I mentioned, we will hold L asix, hold losartan. We will challenge as outpatient. 4.Diabetes, poorly controlled as by primary. 5.Syncope secondary to dehydration, low blood pressure as above. The patient cleared from the Renal standpoint for discharge planning to follow up in the office in 2-3 weeks. Time spent examining the patient [id number], reviewing data, lab and radiology, placing order, disc ussing the case with the patient, discussing the case with the logistics team lead including hospitalist and nursing staff more than 75 minutes. LILY Voice ID: [id number] Report ID: [id number]
[2023-03-26 12:18] VITALS: BP 140/55; TEMP 97.5
--- NOTE | 2023-03-26 12:49 | P.DS ---
Admission Date: 03/25/23 Discharge Date: 03/26/23 Disposition: AMA-LEFT AGAINST MEDICAL ADVIC Reason for Admission: Fall/syncope Consultations: Nephrology - Dr. Gonsales Brief History of Present Illness: 77yo F, PMH: chronic systolic congestive heart failure, COPD, insulin-dependent diabetes, CAD with previous CABG, hypertension, hyperlipidemia, CKD 3 Patient presents to the emergency department with chief complaint of fall, near syncope. She reports she has been feeling weak lately felt as if her legs gave out on her and she fell backwards hitting her head, EMS noted her blood sugar was elevated greater than 500. She was given IV fluids. She is evaluated in the emergency department her labs are significant for hemoglobin 10.2 hematocrit 30.5 glucose 429 potassium 5.2 creatinine 1.8baseline creatinine appears to be around 1.4 CT head/C-spine/chest abdomen pelvis was performed which was negative for acute findings. Hospital Course: Problem List: JOSIAS on CKD 3 with mild hyperkalemia Fall/near syncope ?suspected orthostatic hypotension Chronic systolic CHF IDDM2 with hyperglycemia CAD with previous CABG Hypertension Hyperlipidemia COPD Physical Exam: GEN: Alert, oriented, NAD HEENT: Normal conjunctiva, sclera anicteric CV: Regular rate and rhythm, no edema Pulm: Nonlabored respirations on room air ABD: Soft, nontender, nondistended MSK: No joint tenderness Integumentary: No rashes Neuro: Normal speech, normal affect Vital Signs/Physical Exam: Temp Pulse Resp BP Pulse Ox 97.5 F 76 14 140/55 L 100 03/26/23 12:00 03/26/23 12:00 03/26/23 12:00 03/26/23 12:00 03/26/23 12:00 Laboratory Data at Discharge: WBC 4.20 thou/uL (4.3-10.9) L 03/26/23 02:36 Hgb 8.6 g/dL (12.0-15.0) L D 03/26/23 02:36 Hct 25.1 % (36.0-45.0) L 03/26/23 02:36 Plt Count 88 thou/uL (152-406) L 03/26/23 02:36 PT 12.2 SECONDS (9.5-12.5) 03/25/23 20:45 INR 1.11 03/25/23 20:45 Sodium 142 mEq/L (136-145) D 03/26/23 02:36 Potassium 3.9 mEq/L (3.5-5.1) D 03/26/23 02:36 BUN 37 mg/dL (7-18) H 03/26/23 02:36 Creatinine 1.36 mg/dL (0.55-1.02) H 03/26/23 02:36 Glucose 176 mg/dL (74-106) H 03/26/23 02:36 Magnesium 1.7 mg/dL (1.6-2.4) 03/25/23 20:45 Lipase 47 U/L (13-75) 03/25/23 16:45 Home Medications: Insulin Glargine Human [Lantus*] 30 units SQ BID 05/09/18 Losartan Potassium 25 mg PO DAILY 12/27/21 Albuterol Inhaler [Ventolin Inhaler*] 2 puff IH Q6H PRN 08/28/22 Clopidogrel Bisulfate [Plavix*] 75 mg PO DAILY 08/28/22 Furosemide [Lasix*] 40 mg PO DAILY 08/28/22 Metoprolol Succinate [Toprol Xl*] 50 mg PO DAILY 08/28/22 Aspirin Chewable [Aspirin Chewable*] 81 mg PO DAILY #30 tab.chew 09/03/22 Ipratropium Neb [Atrovent*] 0.5 mg NEB [id number] #60 amp 09/03/22 Atorvastatin Calcium [Lipitor] 40 mg PO BEDTIME 10/10/22 Albuterol Neb [Proventil 0.083% Neb Soln] 2.5 mg NEB [id number] PRN #60 amp 10/18/22 Cyanocobalamin (Vitamin B-12) [Vitamin B12] 5,000 mcg SL DAILY #30 tab 10/18/22 Time spent managing pt's care (in minutes): 45
--- NOTE | 2023-03-26 19:09 | EKG ---
Test Date: 2023-03-25 Test Time: 16:33:24 Enterprise Applications Manager: KATLYN MEASUREMENT RESULTS: Intervals: Rate: 74 ID: [id number] QRSD: 92 QT: 398 QTc: 441 [place]: P: 61 ID: [id number] QRS: 34 T: 203 INTERPRETIVE STATEMENTS: Normal sinus rhythm Anteroseptal infarct, age undetermined ST & T wave abnormality, consider inferolateral ischemia Abnormal ECG Compared to ECG 10/16/2022 16:17:29 Myocardial infarct finding now present ST (T wave) deviation now present Possible ischemia now present T-wave abnormality no longer present Prolonged QT interval no longer present Electronically Signed On 03-26-23 19:08:43 CDT by Edwin Dia
== END 2023-03-26 12:45 | disposition left against medical advice (07) ==
LOC: ER 15:25 → ERHOLD 19:29 → 2ND 19:47
PROVIDERS: ADMIT Hospitalist; ATTEND Hospitalist
DX: N17.9 Acute kidney failure, unspecified (principal); N18.32 Chronic kidney disease, stage 3b; E87.5 Hyperkalemia; R55 Syncope and collapse; I50.22 Chronic systolic (congestive) heart failure; J44.9 Chronic obstructive pulmonary disease, unspecified; E10.65 Type 1 diabetes mellitus with hyperglycemia; E10.40 Type 1 diabetes mellitus with diabetic neuropathy, unspecified; I25.10 Atherosclerotic heart disease of native coronary artery without angina pectoris; I10 Essential (primary) hypertension; E86.0 Dehydration; E66.9 Obesity, unspecified; E78.5 Hyperlipidemia, unspecified; Z79.4 Long term (current) use of insulin; Z95.1 Presence of aortocoronary bypass graft; Z68.29 Body mass index [BMI] 29.0-29.9, adult; Z88.1 Allergy status to other antibiotic agents
CPT/HCPCS: 93005; 85025 ×2; 81001; 80048 ×2; 36415; 83735; 85610; 82947 ×5; 84484 ×3; 83690; 83880; 70450; 71250; 72125; 71045; 76770; 96372; 96374; 99285; J1815 ×2; J1644 ×2; J7030 ×3; G0378

== ENCOUNTER 2023-05-12 09:45 | Day surgery (SDC) | payer OTHER ==
[2023-05-09 09:48] LABS: Lymphocytes % 28.6 % (15.3-44.8); MPV 8.5 fL (7.6-11.3); Platelets 128 thou/uL (152-406); RBC Red Blood Cell Count 3.08 M/uL (3.86-4.86)
[2023-05-09 09:55] LABS: Protime INR 1.08
[2023-05-09 10:03] LABS: Potassium 4.7 mEq/L (3.5-5.1)
[2023-05-09 11:27] LABS: Blood Morphology Comment NOTED (NOT SEEN); Platelet Estimate DECR
[2023-05-12] MEDS ORDERED: NA CHLORIDE 0.9% 500 ML ONE (10:05)
[2023-05-12 10:30] VITALS: O2SAT 100
[2023-05-12] MEDS ORDERED: HEPA 1000U/500MLS 2,000 UNIT/1,000 ML BAG IV ONE (10:53)
[2023-05-12] MEDS ORDERED: FENTANYL CITR 100 MCG/2 ML ONE (10:53)
[2023-05-12] MEDS ORDERED: LIDOCAINE 1% 20 ML MDV ONE (10:53)
[2023-05-12] MEDS ORDERED: MIDAZOLAM HCL 2 MG/2 ML INJ ONE (10:53)
[2023-05-12] MEDS ORDERED: TICAGRELOR 90 MG TABLET PO ONE (10:54)
[2023-05-12] MEDS ORDERED: HEPARIN 10,000 UNIT/10 ML VIAL IV ONE (10:54)
[2023-05-12] MEDS ORDERED: CLOPIDOGREL 75 MG TABLET ONE (10:54)
[2023-05-12] MEDS ORDERED: HEPARIN 5000 UNIT/ML 1 ML VIAL ONE (10:54)
[2023-05-12] MEDS ORDERED: ATROPINE SULF 1 MG/10 ML SYR IV ONE (10:54)
[2023-05-12] MEDS ORDERED: ASPIRIN 325 MG TAB ONE (10:54)
--- NOTE | 2023-05-12 13:13 | EKG ---
Test Date: 2023-05-09 Test Time: 09:30:00 Knitter Helper: WALT MEASUREMENT RESULTS: Intervals: Rate: 70 ND: 206 QRSD: 94 QT: 404 QTc: 436 [place]: P: 72 ND: 206 QRS: 71 T: 233 INTERPRETIVE STATEMENTS: Normal sinus rhythm Septal infarct, age undetermined ST & T wave abnormality, consider inferolateral ischemia Abnormal ECG Compared to ECG 03/25/2023 16:33:24 No significant changes Electronically Signed On 05-12-23 13:09:20 CDT by Edwin Dia
--- NOTE | 2023-05-12 18:15 | OP ---
Date of Procedure: 05/12/2023 Surgeon: BJORN JANG Procedures Performed: 1.Selective coronary angiogram with bypass graft study. 2.Right heart catheterization. 3.Left heart catheterization. Indication: Chest pain suggestive of unstable angina and significant shortness of breath. Access: 1.Right femoral artery, 6-[place], closed with manual pressure. 2.Right femoral vein, 7-[place], closed with manual pressure. Complications: None. Bleeding: Less than 20 mL. Anesthesia: Total sedation time was 40 minutes, used fentanyl and versed. Description Of Procedure: After risks, benefits, and alternatives were explained, the patient agreed to the procedure and signed informal consent. Patient was brought in the cardiac catheterization la boratory, prepped and draped in the usual sterile fashion. Then, I accessed the right femoral artery using micropuncture kit, ultrasound guidance, and fluoroscopy and placed a 6-[place]an [place] sheath and then I accessed the right femoral vein. I used a micropuncture kit and ultrasound guidance and p laced a 7-[place]an [place] sheath and took 7-[place]imbabwe[place] balloon tipped [place] catheter into the right atrium , right ventricle, PA, pulmonary artery and wedge and obtained waveform and pressure and then thermod ilution of cardiac output was calculated and then removed the [place]. Then, I took a 6-[place] JL4 cath eter through the artery access into the aortic root over a J-wire, engaged the left main, took standa rd views, and I exchanged for 6-[place] JR4 catheter and that was used to cannulate the RCA, SVG to RC A, SVG to OM and NIÑO to LAD and then I removed the catheter. Both sheaths were removed and manual p ressure was applied with good hemostasis. Findings: 1.Left main; long, moderate-sized with luminal irregularities. 2.LAD; proximal diffuse 80% and mid segment with 100% occluded, MEDICAL SCIENTIST. Diagonal branches with diffuse disease in diagonal 1 branch about 40% to 50%. 3.Left circumflex diffuse proximal disease about 90% and then becomes 100% MEDICAL SCIENTIST. 4.RCA; proximal 80% stenosis. Graft Study: 1.Patent NIÑO to LAD. 2.Occluded SVG to OM. 3.Patent SVG to RCA and the RCA is giving collaterals to the OM1 branch. 4.LVEDP elevated at 20 mmHg. Right Heart Catheterization: RA pressure was 9. RV pressure was 47/3, mean of 8, and PA pressure wa s 41/14, mean of 25. Pulmonary wedge pressure was 15 mmHg. LVEDP was 20 mmHg. Cardiac output [facility] was 3.85 L/minute. Conclusion: 1.Severe [place] coronary artery disease, multivessel with patent SVG graft to RCA and NIÑO to LAD an d there is a collateral blood flow from the RCA to the OM1 branch. 2.Elevated filling pressures, left and right. Recommendations: Medical management and adjustment of diuretics. SR/MODL Voice ID: [id number] Report ID: [id number]
[2023-05-12 18:44] VITALS: BP 136/59; TEMP 97.5
== END 2023-05-12 16:28 | disposition home or self-care (01) ==
LOC: CCL 09:45
PROVIDERS: ATTEND Internal Medicine
DX: I25.10 Atherosclerotic heart disease of native coronary artery without angina pectoris (principal); I25.810 Atherosclerosis of coronary artery bypass graft(s) without angina pectoris; I25.82 Chronic total occlusion of coronary artery; I70.213 Atherosclerosis of native arteries of extremities with intermittent claudication, bilateral legs; I35.1 Nonrheumatic aortic (valve) insufficiency; I34.0 Nonrheumatic mitral (valve) insufficiency; I65.23 Occlusion and stenosis of bilateral carotid arteries; I11.0 Hypertensive heart disease with heart failure; I50.21 Acute systolic (congestive) heart failure; E11.9 Type 2 diabetes mellitus without complications; E78.2 Mixed hyperlipidemia; Z79.82 Long term (current) use of aspirin; Z79.899 Other long term (current) drug therapy; Z88.3 Allergy status to other anti-infective agents
CPT/HCPCS: 93005; 85025; 80048; 36415; 85610; 82947 ×2; 85730; 93460; 76937; C1893; Q9966; J2001; J2250; J3010; J7040; J0461; J1644

== ENCOUNTER 2023-06-05 11:22 | Emergency (ER) | payer OTHER ==
--- OUTSIDE RECORDS SUMMARY | 2023-06-05 11:29 | XMS REPORT | Continuity of Care Document ---
:1945 Author Organization [facility] t Address [address] [facility] [address] [place] [address] Care Team Providers Name Role Phone Asked, No Pcp Primary Care Physician Unavailable Shawn Quintanilla Attending Clinician Unavailable PRISCILA GUILLORY Attending Clinician Unavailable LD CORTEZ Attending Clinician Unavailable Niles ALEXANDER, Chun Carpenter Attending Clinician Kj ALEXANDER, Suman Rowley Attending Clinician Priscila Guillory MD Attending Clinician DIANE WHITEHEAD Attending Clinician Unavailable Lab, Ang - Db Attending Clinician Unavailable SUMAN UNDERWOOD Attending Clinician Unavailable Marin Muller MD Attending Clinician LOTTIE, JANICE K.H. Attending Clinician Unavailable Pob, Adc Lab Main Attending Clinician Unavailable Marion Vu DPM Attending Clinician MARION VU JR Attending Clinician Unavailable Doctor Unassigned, [place] Attending Clinician Unavailable Nilo Jimenez MD Attending Clinician NILO JIMENEZ Attending Clinician Unavailable BRODY PLAZA Attending Clinician Unavailable Cade HUYNH, Sandra [place] Attending Clinician Unavailable Last Huff DO Attending Clinician Kayden ALEXANDER, Tramaine Attending Clinician Ashok SABA MD, Michael James Attending Clinician [phone] Yamilet Humphreys MD Attending Clinician Migdalia Gong MD Attending Clinician [phone] Praveena Espinoza Attending Clinician PRAVEENA MONTES Attending Clinician Unavailable PATRICIA RODRÍGUEZ Attending Clinician [...] Ashok SABA MD, Michael James Admitting Clinician [phone] SUMAN UNDERWOOD Admitting Clinician Unavailable Rita, Salim F Admitting Clinician Unavailable KJ WILL Admitting Clinician Unavailable LAST HUFF Admitting Clinician Unavailable Payers Payer Name Policy Type Policy Number Effective Date Expiration Date Darling olmos [employer]ICARE [id number] 2020 00:00:00 [employer]/[facility] DUAL [id number] 2020 COMP HMO D SNP 00:00:00 [facility] [id number] 2021 MEDICAID 00:00:00 MEDICAID [facility] [id number] 2011 00:00:00 [facility] MA DUAL 5 [id number] 2023 COMPLETE SELECT 00:00:00 D-SNP Problems Condition Condition Condition Status Onset Resolution Last Treating Co mments Source Name Details Category Date Date Treatment Clinician Date 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 5-11 st without without 00:00: Hospita obstructio obstructio 00 l n or n or gangrene gangrene Peripheral Peripheral Disease Recurre [facility] artery artery nce 9-13 [facility] disease disease 00:[facility]: Medical 00 Center Noncomplia Noncomplia Disease Active U andrew nce nce 2-15 ity of 00:00: [place] 00 Medical Branch Acidosis Acidosis Disease Active [...] 00 Medical Branch Cervical Cervical Disease Active Unive rs spine spine 5-12 [place] Chronic Chronic Disease Active [facility] neck pain neck pain 5-12 ity of 00:00: [place] 00 Medical Branch Microscopi Microscopi Disease Active U nivers c c 3-01 ity of hematuria hematuria 00:[place] Lower Lower Disease Active Univers [...] of insulin insulin Fatty Fatty Disease Active Univers liver liver 11-07 ity of disease, disease, 00:00: [place] nonalcohol nonalcohol 00 Me dical ic ic Branch Ischemic Ischemic Disease Active 2014-10 Unive rs cardiomyop cardiomyop 16 it y of athy athy 00:00: [place] 00 Medical Branch 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 16 ity of disease disease 00:00: [place] involving involving 00 Medi hiram [place] Branch coronary coronary artery artery without without angina angina pectoris pectoris PAD PAD Disease Active 2014-10 Univers (periphera (periphera 16 it y of l artery l artery [...] ia ia ity of [place] [facility] Allergies, Adverse Reactions, Alerts Allergy Allergy Status Severity Reaction(s) Onset Inactive Treating Comm ents Source Name Type Date Date Clinician Ciproflo Propensi Active Hives Method i xacin ty to 5-11 st adverse 00:00: Hospita reaction 00 l s to drug CIPROFLO Allergy Active Itching [facility] XACIN 9-12 [facility] 00:[facility] 00 Center Ciproflo Propensi Active Itching [facility] xacin ty to 9-12 [facility] adverse 00:00: Medical reaction 00 Center s Metformi Propensi Active Diarrhea 2022-[address] n ty to 9-12 [facility] adverse 00:00: Medical reaction 00 Center s [place] Propensi Active Diarrhea 2021-[address] [facility] Flower ty to 9-12 [facility] adverse 00:00: Medical reaction 00 Center s METFORMI Allergy Active Diarrhea 2021-0 [facility] N 9-12 [facility] 00:[facility]: Medical 00 Center ORANGE Allergy Active Diarrhea 2021-[address] FLOWER 9-12 [facility] 00:00: Medical 00 Center Metformi Propensi Active Diarrhea 2020-1 Univ ers n ty to 0-28 ity of adverse 00:00: [place] reaction 00 Medical s Branch METFORMI DRUG Active Diarrhea 2020-1 Univer s N INGREDI 0-28 ity of 00:00: [place] 00 Medical Branch ORANGE DRUG Active High Diarrhea 2020-0 Univers JUICE INGREDI 8-29 ity of 00:00: [place] 00 Medical Branch [place] Propensi Active Diarrhea 2020-0 Univer s Juice ty to 8-29 ity of adverse 00:00: [place] reaction 00 [facility] s Branch ciproflo DA Active U 2019-0 [facility] xacin 6-14 [facility] 00:00: [place] 00 [facility] ciproflo DA Active U 2019-0 [facility] xacin 5-03 [facility] 00:00: [place] 00 [facility] ciproflo DA Active SV 2018-1 [facility] xacin 1-09 [place] 00:00: [place] 00 [facility] ciproflo DA Active MO UNKNOWN 2017-0 [facility] xacin 9-07 [place] 00:00: [place] 00 [facility] clopidog DA Active [place] diarrhea, 2017-0 [facility] rel headache 9-07 [place] 00:00: [place] 00 [facility] ciproflo DA Active MO 2018-0 [facility] xacin 9-07 [place] 00:00: d 00 [facility] clopidog DA Active MO 2018-0 [facility] rel 9-07 [place] 00:00: d 00 [facility] Ciproflo Propensi Active Itching 2014-0 Unive rs xacin ty to 8-18 ity of adverse 00:00: [place] reaction 00 Medical s to Branch drug CIPROFLO DRUG Active Med ITCHING 2014-0 Univers XACIN INGREDI 8-18 ity of 00:00: [place] 00 Medical [place] ciproflo DA Active MO 2013-0 [facility] xacin 7-10 [place] 00:00: e 00 [facility] clopidog DA Active MO 2013-0 [facility] rel 7-10 [place] 00:[facility]: e [facility] Social History Social Habit Start Date Stop Date Quantity Comments Source Exposure to Not sure University of SARS-CoV-2 (event) [facility] History SDOH [facility] Alcohol Std Drinks Medica l Center History SDOH [facility] Alcohol Binge Medical Alicia ter History SDOH [facility] Alcohol Comment Medical C enter History of tobacco Cigarette Smoker [facility] History of Social 2023-02-13 2023-02-[address] function 00:00:00 00:00:00 Hospital Tobacco use and 2023-02-13 2023-02-13 Former smokeless Met [facility]ist exposure 00:00:00 00:00:00 tobacco user Hospital Alcohol intake 2022-06-20 2022-06-[address] [facility] 00:00:00 00:00:00 non-drinker Medical Cente r (finding) History SDOH 2022-06-18 2022-06-[address] [facility] Alcohol Frequency 00:00:00 00:00:00 [facility] Tobacco Comment 2022-06-18 2022-06-18 [facility]rs [facility]00 [facility] Sex Assigned At [address] [address] [facility] 00:00:00 00:00:00 [facility] Smoking Status Start Date Stop Date Source Ex-smoker 2023-02-13 00:00:00 2023-02-13 [facility] Medications Ordered Filled Start Stop Current Ordering Indication Dosage Frequency Signature Comments Components Source Medication Medication Date Date Medication? Clinician (SIG) Name Name potassium Yes 20meq QD Take 1 Metho di chloride 5-11 tablet (20 st (K-DUR) 20 13:05: mEq total) H ospita MEQ CR 57 by mouth l tablet daily. potassium Yes 20meq QD Take 1 Metho di chloride 5-11 tablet (20 st (K-DUR) 20 13:05: mEq total) H ospita MEQ CR 57 by mouth l tablet daily. metoprolol Yes Methodi succinate 4-24 st XL 00:00: Hospita (TOPROL-XL) 00 l 50 mg 24 hr tablet metoprolol Yes Methodi succinate 4-24 st XL 00:00: Hospita (TOPROL-XL) 00 l 50 mg 24 hr tablet ATORVASTATI Yes [id number] 40mg TAKE 1 Univers N 40 mg [...] St chloride SA 9-13 mEq by [facility] (K-DUR,KLEBONI 21:06: mouth Medic al -CON-M) 20 46 [...] St chloride SA 9-13 mEq by [facility] (K-DURKLOR 21:06: mouth Medic al -CON-M) 20 46 [...] [facility] chloride SA 9-13 mEq by Lujed (K-DUR,KLOR 21:06: mouth Medic al -CON-M) 20 [...] St chloride SA 9-13 mEq by [facility] (K-DURLAWRENCE 21:06: mouth Medic al -CON-M) 20 46 [...] 21:06: daily. Medical tablet 46 Center furosemide 2022-0 Yes 40mg QD Take 40 mg C [...] 81mg QD Take 1 Methodi (ECOTRIN) 06-18 09-14 tablet (81 st 81 MG 00:00: 04:59 mg total) Hospit a enteric 00 :00 by mouth l coated daily. tablet aspirin 2022- No 81mg QD Take 1 [...] 00 :00 by mouth Center daily. clopidogreL 2021-3- No 75mg QD Take [address] (PLAVIX) 75 06-18 tablet (75 L ukes mg tablet 00:00: 23:59 mg total) Me dical 00 :00 by mouth Center daily. aspirin 81 2021- 2023- No 81mg QD Take [address] MG EC 06-18 tablet (81 [facility] tablet 00:00: 23:59 mg total) Medic al 00 :00 by mouth Center daily. clopidogreL 2021-0 3- No 75mg QD Take [address] (PLAVIX) 75 06-18 tablet (75 L ukes mg tablet 00:00: 23:59 mg total) Me dical 00 :00 by mouth Center daily. aspirin 81 2021-3- No 81mg QD Take [address] MG EC 06-18 tablet (81 [facility] tablet 00:00: 23:59 mg total) Medic al 00 :00 by mouth Center daily. clopidogreL 2021-3- No 75mg QD Take [address] (PLAVIX) 75 06-18 tablet (75 L ukes mg tablet 00:00: 23:59 mg total) Me dical 00 :00 by mouth Center daily. aspirin 81 2021-0 3- No 81mg QD Take [address] MG EC 06-18 tablet (81 [facility] tablet 00:00: 23:59 mg total) Medic al 00 :00 by mouth Center daily. clopidogreL 2021-3- No 75mg QD Take [address] [facility] [...] 00 :00 by mouth Center daily. clopidogreL 2022-0 2022- No 75mg QD Take 1 CHI [...] dical 00 :00 by mouth Center daily. atorvastati 2021-0 Yes 40mg QD Take 1 Meth taran n (LIPITOR) 7-25 tablet (40 st 40 mg 00:00: mg total) Hospita tablet 00 by mouth l daily. atorvastati Yes 40mg QD Take 1 Meth taran n (LIPITOR) 7-25 tablet (40 st 40 mg 00:00: mg total) Hospita tablet 00 by mouth l daily. LANTUS Yes [id number] INJECT 52 Un sherrell SOLOSTAR 4-26 UNITS ity of U-100 00:00: UNDER THE [place] INSULIN 100 00 SKIN TWO Medi hiram unit/mL (3 TIMES Branch mL) DAILY. injection LANTUS Yes [id number] INJECT 52 U nivers SOLOSTAR 4-26 UNITS ity of U-100 00:00: UNDER THE [place] INSULIN 100 00 SKIN TWO Medi hiram unit/mL (3 TIMES Branch mL) DAILY. injection insulin Yes Methodi GLARGINE 4-26 st (Lantus 00:00: Hospita Solostar 00 l U-100 Insulin) 100 unit/mL injection (pen) insulin Yes Methodi GLARGINE 4-26 st (Lantus 00:00: Hospita Solostar 00 l U-100 Insulin) 100 unit/mL injection (pen) nitroglycer Yes [id number] .4mg Place 1 Univers in 0.4 mg 2-02 tablet ity of sublingual 00:00: under the [place] tablet 00 tongue Medical every 5 Branch (five) minutes as needed for Chest pain. albuterol Yes [id number] 2{puff} Inhale 2 Univers 90 2-02 Puffs ity of mcg/actuati 00:00: every 6 [place] as on inhaler 00 (six) Medical hours as Branch needed for Wheezing or Shortness of Breath. Insulin Yes [id number] 52U inject 52 U nivers Glargine 2-02 Units ity of (LANTUS 00:00: under the [place] SOLOSTAR 00 skin 2 Medical U-100 (two) Branch INSULIN) times 100 unit/mL daily. (3 mL) injection nitroglycer Yes [id number] .4mg Place 1 Univers in 0.4 mg 2-02 tablet ity of sublingual 00:00: under the [place] tablet 00 tongue Medical every 5 Branch (five) minutes as needed for Chest pain. albuterol Yes [id number] 2{puff} Inhale 2 Univers 90 2-02 Puffs ity of mcg/actuati 00:00: every 6 [place] as on inhaler 00 (six) Medical hours as Branch needed for Wheezing or Shortness of Breath. nitroglycer Yes [id number] .4mg Place 1 Univers in 0.4 mg 2-02 tablet ity of sublingual 00:00: under the [place] tablet 00 tongue Medical every 5 Branch (five) minutes as needed for Chest pain. albuterol Yes [id number] 2{puff} Inhale 2 Univers 90 2-02 Puffs ity of mcg/actuati 00:00: every 6 [place] as on inhaler 00 (six) Medical hours as Branch needed for Wheezing or Shortness of Breath. albuterol Yes 2{puff} Q6H Inhale 2 M ethodi (PROAIR 2-[address] HFA) 90 00:00: every 6 Hospita mcg/actuati 00 (six) l on inhaler hours as needed. nitroglycer Yes .4mg Place 1 Met hodi in 2-[address] (NITROSTAT) 00:00: (0.4 mg Hos milagro 0.4 MG SL 00 total) l tablet under the tongue. albuterol Yes 2{puff} Q6H Inhale 2 M ethodi (PROAIR 2-[address] HFA) 90 00:00: every 6 Hospita mcg/actuati 00 (six) l on inhaler hours as needed. nitroglycer Yes .4mg Place 1 Met hodi in 2-[address] (NITROSTAT) 00:00: (0.4 mg Hos milagro 0.4 MG SL 00 total) l tablet under the tongue. Insulin 2021- No [id number] 52U inject 52 Univers Glargine 11-07 04-26 Units ity of (LANTUS 00:00: 00:00 [place] SOLOSTAR 00 :00 skin 2 Medical U-100 (two) Branch INSULIN) times 100 unit/mL daily. (3 mL) injection atorvastati Yes [id number] 40mg Take 1 Univers n 40 mg 1-18 tablet by ity of tablet 00:00: mouth [place] 00 daily. Medical Branch atorvastati 0 Yes [id number] 40mg Take 1 Univers n 40 mg 1-18 tablet by ity of tablet 00:00: mouth [place] 00 daily. Medical Branch atorvastati 0 2023- No [id number] 40mg Take 1 Univers n 40 mg 1-18 -29 tablet by ity of tablet 00:00: 22:39 mouth [place] 00 :15 daily. Medical Branch HYDROcodone 0 Yes Univer s -acetaminop 1-06 ity of hen 7.5-325 00:00: [place] mg per 00 Medical tablet Branch HYDROcodone Yes Univer s -acetaminop 1-06 ity of hen 7.5-325 00:00: [place] mg per 00 Medical tablet Branch HYDROcodone Yes 1{tbl} Q6H Take 1 Me thodi -acetaminop 1-[address] hen (NORPacinian) 00:00: mouth Hospi ta 7.5-325 mg 00 every 6 l per tablet (six) hours as needed. HYDROcodone Yes 1{tbl} Q6H Take 1 Me thodi -acetaminop 1-[address] hen ([employer]) 00:00: mouth Hospi ta 7.5-325 mg 00 every 6 l per tablet (six) hours as needed. gabapentin 2020-10 Yes [id number] 300mg Take 1 Univers 300 mg 1-16 capsule by ity of capsule 00:00: mouth at [place] 00 bedtime. Medical Branch gabapentin 2020-10 Yes [id number] 300mg Take 1 Univers 300 mg 1-16 capsule by ity of capsule 00:00: mouth at [place] 00 bedtime. Medical Branch gabapentin 2020-10 Yes [id number] 300mg Take 1 Univers 300 mg 1-16 capsule by ity of capsule 00:00: mouth at [place] 00 bedtime. Medical Branch triamcinolo 2020-10 Yes [id number] Apply to Univers ne 0.5 % 0-29 9107 area(s) 2 ity of ointment 00:00: (two) [place] 00 times Medical daily. Branch triamcinolo 2020-10 Yes [id number] Apply to Univers ne 0.5 % 0-29 9107 area(s) 2 ity of ointment 00:00: (two) [place] 00 times Medical daily. Branch triamcinolo 2020-10 Yes [id number] Apply to Univers ne 0.5 % 0-29 9107 area(s) 2 ity of ointment 00:00: (two) [place] 00 times Medical daily. Branch lancets-blo 2020-10 Yes [id number] 1{each} 1 Each 2 Univers od glucose 0-15 (two) ity of strips 30 00:00: times [place] gauge Cmpk 00 daily. DX [facility] E11.9 Branch (Brand upon insurance approval) [facility] 2020-10 Yes USE Univers PENTIPS 0-15 DIRECTED ity of PLUS 33 00:00: FOR TWICE [place] gauge x 00 A DAY Medical " Ndle INSULIN Branch ADMINISTRA TION. lancets-blo 2020-10 Yes [id number] 1{each} 1 Each 2 Univers od glucose 0-15 (two) ity of strips 30 00:00: times [place] gauge Cmpk 00 daily. DX [facility] E11.9 Branch (Brand upon insurance approval) [facility] 2020-10 Yes USE Univers PENTIPS 0-15 DIRECTED ity of PLUS 33 00:00: FOR TWICE [place] gauge x 00 A DAY Medical " Ndle INSULIN Branch ADMINISTRA TION. lancets-blo 2020-10 Yes [id number] 1{each} 1 Each 2 Univers od glucose 0-15 (two) ity of strips 30 00:00: times [place] gauge Cmpk 00 daily. DX [facility] E11.9 [place] (Brand upon insurance approval) [facility] 2020-10 Yes USE Univers PENTIPS 0-15 DIRECTED ity of PLUS 33 00:00: FOR TWICE [place] gauge x 00 A DAY Medical " Ndle INSULIN Branch ADMINISTRA TION. fsh-flx-prm Yes 1{capsu Take 1 U andrew -bing-om 06-10 le} capsule by ity of 3,6,9 #6 17:15: mouth [place] (FISH, FLAX 17 daily. Medica l & BORAGE 1,040 Branch OIL, PRIM,) mg/575mg 400-400-200 EPA/425mg mg Cap DHA multivit-ir 2021-0 Yes 1{tbl} Take 1 Tab Univers on-FA with 9-05 by mouth ity o f Ca&mins 17:15: daily. [place] (THERA-TABS 17 Medical M) 27 mg Branch iron-400 mcg Tab omeg3/epa/d 0 Yes Take by Uni vers mane/fish 9-05 mouth. ity of oil/flax/E 17:15: [place] (THERA 17 Medical TEARS Branch NUTRITION ORAL) CALCIUM-MAG 0 Yes Take by Uni vers NESIUM-ZINC 9-05 mouth. ity of ORAL 17:15: Also with [place] 17 vitamin d Medical Branch docosahexan Yes 1200mg Take 1,200 Univers oic 9-05 mg by ity of acid/epa 17:15: mouth. [place] (FISH OIL 17 360mg Medical ORAL) omega 3 Branch fsh-flx-prm Yes 1{capsu Take 1 U nivers -blkbor-om 9-05 le} capsule by ity of 3,6,9 #6 17:15: mouth [place] (FISH, FLAX 17 daily. Medica l & BORAGE 1,040 Branch OIL, PRIM,) mg/575mg 400-400-200 EPA/425mg mg Cap DHA multivit-ir Yes 1{tbl} Take 1 Tab Univers on-FA with 9-05 by mouth ity o f Ca&mins 17:15: daily. [place] (THERA-TABS 17 Medical M) 27 mg Branch iron-400 mcg Tab omeg3/epa/d Yes Take by Uni vers mane/fish 9-05 mouth. ity of oil/flax/E 17:15: [place] (THERA 17 Medical TEARS Branch NUTRITION ORAL) CALCIUM-MAG Yes Take by Uni vers NESIUM-ZINC 9-05 mouth. ity of ORAL 17:15: Also with [place] 17 vitamin d Medical Branch docosahexan Yes 1200mg Take 1,200 Univers oic 9-05 mg by ity of acid/epa 17:15: mouth. [place] (FISH OIL 17 360mg Medical ORAL) omega 3 Branch fsh-flx-prm Yes 1{capsu Take 1 U nivers -blkbor-om 9-05 le} capsule by ity of 3,6,9 #6 17:15: mouth [place] (FISH, FLAX 17 daily. Medica l & BORAGE 1,040 Branch OIL, PRIM,) mg/575mg 400-400-200 EPA/425mg mg Cap DHA multivit-ir Yes 1{tbl} Take 1 Tab Univers on-FA with 9-05 by mouth ity o f Ca&mins 17:15: daily. [place] (THERA-TABS 17 Medical M) 27 mg Branch iron-400 mcg Tab omeg3/epa/d Yes Take by Uni vers mane/fish 9-05 [...] Medical ORAL) omega 3 Branch bacitracin Yes [id number] Apply to Univers 500 9-05 affected ity of unit/gram 00:00: area(s) 4 [place] as ointment 00 (four) Medical times Branch daily. simethicone Yes [id number] 80mg Take 1 Univers 80 mg 9-05 tablet by ity of chewable 00:00: mouth [place] tablet 00 after Medical meals and Branch at bedtime. bacitracin Yes [id number] Apply to Univers 500 9-05 affected ity of unit/gram 00:00: area(s) 4 [place] as ointment 00 (four) Medical times Branch daily. simethicone Yes [id number] 80mg Take 1 Univers 80 mg 9-05 tablet by ity of chewable 00:00: mouth [place] tablet 00 after Medical meals and Branch at bedtime. bacitracin Yes [id number] Apply to Univers 500 9-05 affected ity of unit/gram 00:00: area(s) 4 [place] as ointment 00 (four) Medical times Branch daily. simethicone Yes [id number] 80mg Take 1 Univers 80 mg 9-05 tablet by ity of chewable 00:00: mouth [place] tablet 00 after Medical meals and Branch at bedtime. zinc 2020-0 Yes [id number] 220mg Take 1 Univer s sulfate 50 8-09 capsule by ity of mg zinc 00:00: mouth [place] (220 mg) 00 daily. Medical capsule Branch thiamine 2020-0 Yes [id number] 100mg Take 1 Un sherrell 100 mg 8-09 tablet by ity of tablet 00:00: mouth [place] 00 daily. Medical Branch zinc 2020-0 Yes [id number] 220mg Take 1 Univer s sulfate 50 8-09 capsule by ity of mg zinc 00:00: mouth [place] (220 mg) 00 daily. Medical capsule Branch thiamine 2020-0 Yes [id number] 100mg Take 1 Un sherrell 100 mg 8-09 tablet by ity of tablet 00:00: mouth [place] 00 daily. Medical Branch zinc 2020-0 Yes [id number] 220mg Take 1 Univer s sulfate 50 8-09 capsule by ity of mg zinc 00:00: mouth [place] (220 mg) 00 daily. Medical capsule Branch thiamine 2020-0 Yes [id number] 100mg Take 1 Un sherrell 100 mg 8-09 tablet by ity of tablet 00:00: mouth [place] 00 daily. Medical Branch vitamin C 2020-0 Yes [id number] 1000mg Take 1 Univers with kwame 8-08 tablet by ity o f hips 1,000 00:00: mouth [place] mg tablet 00 daily. Medical Branch cholecalcif 2020-0 Yes [id number] 2000U Take 2 Univers carmelina, 8-08 tablets by ity of vitamin D3, 00:00: mouth [place] 25 mcg 00 daily. Medical (1,000 Branch unit) tablet vitamin C 2020-0 Yes [id number] 1000mg Take 1 Univers with kwame 8-08 tablet by ity o f hips 1,000 00:00: mouth [place] mg tablet 00 daily. Medical Branch cholecalcif 2020-0 Yes [id number] 2000U Take 2 Univers carmelina, 8-08 tablets by ity of vitamin D3, 00:00: mouth [place] 25 mcg 00 daily. Medical (1,000 Branch unit) tablet vitamin C 2020-0 Yes [id number] 1000mg Take 1 Univers with kwame 8-08 tablet by ity o f hips 1,000 00:00: mouth [place] mg tablet 00 daily. Medical Branch cholecalcif 2020-0 Yes [id number] 2000U Take 2 Univers carmelina, 8-08 tablets by ity of vitamin D3, 00:00: mouth [place] 25 mcg 00 daily. Medical (1,000 Branch unit) tablet ascorbic 2020-0 Yes 1000mg QD Take 1 Metho di acid, 8-[address] vitamin C, 00:00: (1,000 mg Ho spita (VITAMIN C) 00 total) by l 1000 MG mouth tablet daily. cholecalcif 2020-0 Yes 2000U QD Take 2 Met hodi carmelina, 8-[address] vitamin D3, 00:00: (2,000 [facility] 1,000 unit 00 Units l tablet total) by mouth daily. ascorbic 2020-0 Yes 1000mg QD Take 1 Metho di acid, 8-[address] vitamin C, 00:00: (1,000 mg Ho spita (VITAMIN C) 00 total) by l 1000 MG mouth tablet daily. cholecalcif 2020-0 Yes 2000U QD Take 2 Met hodi carmelina, 8-[address] vitamin D3, 00:00: (2,000 [facility] [place] 1,000 unit 00 Units l tablet total) by mouth daily. blood sugar 2020-0 Yes [id number] USE TO [facility] diagnostic 7-23 TEST BLOOD ity of (ONETOUCH 00:00: SUGAR [place] VERIO TEST 00 TWICE Medical STRIPS) DAILY; Branch strip ICD-10 E11.8 blood sugar 0 Yes [id number] USE TO [facility] diagnostic 7-23 TEST BLOOD ity of (ONETOUCH 00:00: SUGAR [place] VERIO TEST 00 TWICE Medical STRIPS) DAILY; Branch strip ICD-10 E11.8 blood sugar 2020-0 Yes [id number] USE TO [facility] diagnostic 7-23 TEST BLOOD ity of (ONETOUCH 00:00: SUGAR [place] VERIO TEST 00 TWICE Medical STRIPS) DAILY; Branch strip ICD-10 E11.8 metoprolol 2020-0 Yes [id number] 50mg Take 1 U nivers succinate 6-24 tablet by ity o f XL 50 mg 24 00:00: mouth [place] hr tablet 00 daily. Medical Branch metoprolol 2020-0 Yes [id number] 50mg Take 1 U nivers succinate 6-24 tablet by ity o f XL 50 mg 24 00:00: mouth [place] hr tablet 00 daily. Medical Branch metoprolol 0 Yes [id number] 50mg Take 1 U nivers succinate 6-24 tablet by ity o f XL 50 mg 24 00:00: mouth [place] hr tablet 00 daily. Medical Branch LOSARTAN 25 2020-0 Yes [id number] 25mg TAKE 1 Univers mg tablet 6-21 TABLET BY ity o f 00:00: MOUTH [place] 00 DAILY. Medical Branch LOSARTAN 25 2020-0 Yes [id number] 25mg TAKE 1 Univers mg tablet 6-21 TABLET BY ity o f 00:00: MOUTH [place] 00 DAILY. Medical Branch LOSARTAN 25 0 Yes [id number] 25mg TAKE 1 Univers mg tablet 6-21 TABLET BY ity o f 00:00: MOUTH [place] 00 DAILY. Medical Branch losartan 0 Yes Take by Method i (COZAAR) 25 6-[address] MG tablet 00:00: Hospita 00 l losartan 2020-0 Yes Take by Method i (COZAAR) 25 6-[address] MG tablet 00:00: Hospita 00 l FUROSEMIDE 2020-0 Yes [id number] TAKE 1 Univers 40 mg 4-14 TABLET BY ity of tablet 00:00: MOUTH [place] 00 EVERY DAY Medical Branch FUROSEMIDE 2020-0 Yes [id number] TAKE 1 Univers 40 mg 4-14 TABLET BY ity of tablet 00:00: MOUTH [place] 00 EVERY DAY Medical Branch FUROSEMIDE 2020-0 Yes [id number] TAKE 1 Univers 40 mg 4-14 TABLET BY ity of tablet 00:00: MOUTH [place] 00 EVERY DAY Medical Branch furosemide 2020-0 Yes 40mg QD Take 1 Metho di (LASIX) 40 4-14 tablet (40 st mg tablet 00:00: mg total) Hos [place] 00 by mouth l daily. furosemide 0 Yes 40mg QD Take 1 Metho di (LASIX) 40 4-14 tablet (40 st mg tablet 00:00: mg total) Hos [place] 00 by mouth l daily. SPIRIVA 2020-0 Yes [id number] INHALE 1 Un sherrell RESPIMAT 3-04 PUFF BY ity of 2.5 00:00: MOUTH [place] mcg/actuati 00 DAILY. Medica l on [facility] Branch SPIRIVA 2020-0 Yes [id number] INHALE 1 Un sherrell RESPIMAT 3-04 PUFF BY ity of 2.5 00:00: MOUTH [place] mcg/actuati 00 DAILY. Medica l on Mist Branch SPIRIVA 0 Yes [id number] INHALE 1 Un sherrell RESPIMAT 3-04 PUFF [...] y of LANCET 33 00:00: [place] [facility] [place] THREE Medical TIMES Branch DAILY Nebulizer & 2020-0 Yes [id number] Use as Univers Compressor 7-15 directed; ity of For Neb 00:00: ICD-10 [place] Allison 00 CODE J44.9 Medical Branch Nebulizer & 2019-0 Yes [id number] Use as Univers Compressor 7-15 directed; ity of For Neb 00:00: ICD-10 [place] Allison 00 CODE J44.9 Medical Branch Nebulizer & 2020-0 Yes [id number] Use as Univers Compressor 7-15 directed; ity of For Neb 00:00: ICD-10 [place] Allison 00 CODE J44.9 Medical Branch albuterol 2019-0 Yes [id number] .63mg Inhale 3 Univers 0.63 mg/3 5-12 mL every 6 ity of mL 00:00: (six) [place] nebulizer 00 hours as Medica l solution needed for Branc h Wheezing or Shortness of Breath. montelukast 2019-0 Yes [id number] 10mg Take 1 Univers 10 mg 5-12 tablet by ity of tablet 00:00: mouth [place] 00 every Medical evening. Branch albuterol 2020-0 Yes [id number] .63mg Inhale 3 Univers 0.63 mg/3 5-12 mL every 6 ity of mL 00:00: (six) [place] nebulizer 00 hours as Medica l solution needed for Branc h Wheezing or Shortness of Breath. montelukast 2019-0 Yes [id number] 10mg Take 1 Univers 10 mg 5-12 tablet by ity of tablet 00:00: mouth [place] 00 every Medical evening. Branch albuterol Yes [id number] .63mg Inhale 3 Univers 0.63 mg/3 5-12 mL every 6 ity of mL 00:00: (six) [place] nebulizer 00 hours as Medica l solution needed for Branc h Wheezing or Shortness of Breath. montelukast Yes [id number] 10mg Take 1 Univers 10 mg 5-12 tablet by ity of tablet 00:00: mouth [place] 00 every Medical evening. Branch albuterol Yes .63mg Inhale 3 Met hodi (ACCUNEB) 5-12 mL (0.63 st 0.63 mg/3 00:00: mg total). Ho spita mL 00 l nebulizer solution albuterol Yes .63mg Inhale 3 Met hodi (ACCUNEB) 5-12 mL (0.63 st 0.63 mg/3 00:00: mg total). Ho spita mL 00 l nebulizer solution potassium 2021- No [id number] 10meq Take 1 Univers chloride 10 5-12 02-04 tablet by it y of mEq CR 00:00: 00:00 mouth [place] tablet 00 :00 daily. Medical Branch Lancets 2018- Yes [id number] Check Unive rs Misc 2-13 sugars up ity of 00:00: to 3 times [place] 00 a day. Dx Medical Code Branch E11.9. Brand per insurance. aspirin 325 2018-10 Yes [id number] 325mg Take 1 Univers mg tablet 2-13 tablet by ity o f 00:00: mouth [place] 00 daily. Medical Branch butalbital- 2018-10 Yes [id number] 1{tbl} Take 1 Univers acetaminoph 2-13 tablet by ity of en-caff 00:00: mouth [place] 50-325-40 00 every 6 Medical mg tablet (six) Branch hours as needed (Migraine) . Lancets 2018-10 Yes [id number] Check Unive rs Misc 2-13 sugars up ity of 00:00: to 3 times [place] 00 a day. Dx Medical Code Branch E11.9. Brand per insurance. aspirin 325 2018-10 Yes [id number] 325mg Take 1 Univers mg tablet 2-13 tablet by ity o f 00:00: mouth [place] 00 daily. Medical Branch butalbital- 2018-10 Yes [id number] 1{tbl} Take 1 Univers acetaminoph 2-13 tablet by ity of en-caff 00:00: mouth [place] 50-325-40 00 every 6 Medical mg tablet (six) Branch hours as needed (Migraine) . Lancets 2018-10 Yes [id number] Check Univ ers Misc 2-13 sugars up ity of 00:00: to 3 times [place] 00 a day. Dx Medical Code Branch E11.9. Brand per insurance. aspirin 325 2018-10 Yes [id number] 325mg Take 1 Univers mg tablet 2-13 tablet by ity o f 00:00: mouth [place] 00 daily. Medical Branch butalbital- 2018-10 Yes [id number] 1{tbl} Take 1 Univers acetaminoph 2-13 tablet [...] s 00 TIMES Medical DAILY Branch TRUEPLUS 2018- Yes USE TO Univers LANCETS 30 0-11 TEST BLOOD ity of gauge Misc 00:00: [place] 2 [place] 00 TIMES Medical DAILY Branch Blood-Gluco 2016-10 Yes [id number] Use BID, Univers se Meter 0-03 DX E11.9 ity of Kit 00:00: ([facility] insurance Branch approval) Blood-Gluco 2016- Yes [id number] Use BID, Univers se Meter 0-03 DX E11.9 ity of Kit 00:00: ([facility] Branch approval) Blood-Gluco 2016- Yes [id number] Use BID, Univers se Meter 0-03 DX E11.9 ity of Kit 00:00: ([facility] approval) Immunizations Ordered Filled Immunization Date Status Comments Sourc e Immunization Name Name Pneumococcal 2018-08-22 Completed [place] o f Polysaccharide, 00:00:00 [place] Med ical PPSV23 (PNEUMOVAX) Branch Pneumococcal 2018-08-22 Completed [place] o f Polysaccharide, 00:00:00 [facility] ica PPSV23 (PNEUMOVAX) Branch Pneumococcal 2018-08-22 Completed University o f Polysaccharide, 00:00:00 [facility] ical PPSV23 (PNEUMOVAX) Branch Vital Signs Vital Name Observation Time Observation Value Comments Source WEIGHT 2022-06-18 10:35:00 92.08 kg HEIGHT 2022-06-18 10:35:00 162.6 cm WEIGHT 2022-06-18 10:35:00 92.08 kg HEIGHT 2022-06-18 10:35:00 162.6 cm WEIGHT 2022-06-18 10:35:00 92.08 kg HEIGHT 2022-06-18 10:35:00 162.6 cm Systolic blood 2023-02-13 18:05:00 137 mm[Hg] [facility] pressure Diastolic blood 2023-02-13 18:05:00 87 mm[Hg] [facility] pressure Heart rate 2023-02-13 18:05:00 91 /min [facility] Body temperature 2023-02-13 18:05:00 36.44 Gilma [facility] Respiratory rate 2023-02-13 18:05:00 19 /min [facility] Body height 2023-02-13 18:05:00 165.1 cm [facility] Body weight 2023-02-13 18:05:00 81.647 kg [facility] BMI 2023-02-13 18:05:00 29.95 kg/m2 [facility] Oxygen saturation in 2023-02-13 18:05:00 99 /min [facility] Arterial blood by Pulse oximetry Systolic blood 2022-06-18 18:22:00 123 mm[Hg] [facility] Diastolic blood 2022-06-18 18:22:00 53 mm[Hg] [facility] Heart rate 2022-06-18 18:22:00 79 /min [facility] Respiratory rate 2022-06-18 18:22:00 16 /min [facility] Oxygen saturation in 2022-06-18 16:44:00 98 /min [facility] Arterial blood by Medical Ce nter Pulse oximetry Body temperature 2022-06-18 10:35:[address] [facility] Body height 2022-06-18 10:35:00 162.6 cm [facility] Body weight 2022-06-18 10:35:00 92.08 kg [facility] BMI 2022-06-18 10:35:00 34.84 kg/m2 [facility] Procedures Procedure Date / Time Performing Clinician Source Performed CT ABDOMEN PELVIS WO 2023-02-28 17:57:00 Nhan Shaw [facility] POCT-GLUCOSE METER 2022-06-18 15:55:00 [facility] ANGIOPLASTY, ARTERY, 2022-06-18 12:16:00 [facility] LOWER EXTREMITY Club[facility] CBC W/PLT COUNT & AUTO 2022-06-18 11:51:00 Valentina, [facility] DIFFERENTIAL Clubb PROTHROMBIN TIME/INR 2022-06-18 11:51:00 Valentina, [facility] APTT 2022-06-18 11:51:00 Valentina, [facility] BASIC METABOLIC PANEL 2022-06-18 11:51:00 [facility] TYPE AND SCREEN, 2022-06-18 11:51[facility]00 [facility] CBC W/PLT COUNT & AUTO 2022-06-18 11:51:00 Valentina, [facility] POCT-GLUCOSE METER 2022-06-18 11:18:00 [facility] ECG 12-LEAD 2022-06-18 11:09:38 [facility] CARDIAC CATH REPORT - 2022-06-18 00:00:00 Dimitry Langford [facility] SCAN Scanning Center COMP. METABOLIC PANEL 2021-11-07 16:33:00 Suman Underwood [facility] ([id number]) [facility] Branch CBC WITHOUT DIFF 2021-11-07 16:33:00 Suman Underwood [facility] [id number] 2020-05-27 00:00:[address] [facility] [id number] 2020-05-27 00:00:00 [facility] [id number] 2020-05-27 00:00:00 [facility] [id number] 2020-05-27 00:00:00 [facility] [id number] 2020-05-27 00:00:00 [facility] [id number] 2020-05-27 00:00:00 [facility] Plan of Care Planned Activity [...] Screening (12+)] Future Scheduled 2023-06-06 Influenza Vaccine (#1) [facility] 00:00:00 [code = Influenza Medical Ce nter Vaccine (#1)] Future Scheduled 2023-06-[address] [facility] Test 00:00:00 (Season Ended) [code = Medic pa Center Influenza Vaccine (Season Ended)] Future Scheduled 2023-06-04 COVID-19 VACCINE (#1) [facility] Test 03:25:12 [code = COVID-19 VACCINE (#1)] Future Scheduled 2023-06-04 Hepatitis C screening [facility] Test 03:25:12 (procedure) [code = [id number]] Future Scheduled 2023-06-04 SHINGLES VACCINES (1 Met [facility] Test 03:25:12 of 2) [code = SHINGLES VACCINES (1 of 2)] Future Scheduled 2023-06-04 HEPATITIS B VACCINES Met [facility] Test 03:25:12 (1 of 3 - Risk 3-dose series) [code = HEPATITIS B VACCINES (1 of 3 - Risk 3-dose series)] Future Scheduled 2023-06-04 65+ PNEUMOCOCCAL [facility] Hospital Test 03:25:12 VACCINE (3 - PCV) [code = 65+ PNEUMOCOCCAL VACCINE (3 - PCV)] Future Scheduled 2023-06-04 INFLUENZA VACCINE (#1) [facility] Test 03:25:12 [code = INFLUENZA VACCINE (#1)] Future Scheduled 2023-03-20 COVID-19 VACCINE (#1) [facility] Test 16:51:00 [code = COVID-19 VACCINE (#1)] Future Scheduled 2023-03-20 Hepatitis C screening [facility] Test 16:51:00 (procedure) [code = [id number]] Future Scheduled 2023-03-20 SHINGLES VACCINES (1 [facility] Test 16:51:00 of 2) [code = SHINGLES VACCINES (1 of 2)] Future Scheduled 2023-03-20 HEPATITIS B VACCINES Met [facility] Test 16:51:00 (1 of 3 - Risk 3-dose series) [code = HEPATITIS B VACCINES (1 of 3 - Risk 3-dose series)] Future Scheduled 2023-03-20 65+ [facility]OCCAL [facility] Test 16:51:00 VACCINE (3 - PCV) [code = 65+ PNEUMOCOCCAL VACCINE (3 - PCV)] Future Scheduled 2023-03-20 INFLUENZA VACCINE Method [facility] Test 16:51:00 [code = INFLUENZA VACCINE] Future Scheduled 2022-10-[address] [facility] Test 00:00:00 (12+) [code = Medical Center DEPRESSION SCREENING (12+)] Future Scheduled 2022-10-06 FALLS RISK SCREENING [facility] Test 00:00:00 [code = FALLS RISK Medical C enter SCREENING] Future Scheduled 2022-10-[address] [facility] Test 00:00:00 (12+) [code = Medical Center DEPRESSION SCREENING (12+)] Future Scheduled 2022-10-06 FALLS RISK SCREENING [facility] Test 00:00:00 [code = FALLS RISK Medical C enter SCREENING] Future Scheduled 2022-10-[address] [facility] Test 00:00:00 (12+) [code = Medical Center DEPRESSION SCREENING (12+)] Future Scheduled 2022-10-06 FALLS RISK SCREENING [facility] Test 00:00:00 [code = FALLS RISK Medical C enter SCREENING] Future Scheduled 2022-10-[address] [facility] Test 00:00:00 (12+) [code = Medical Center DEPRESSION SCREENING (12+)] Future Scheduled 2022-10-06 FALLS RISK SCREENING [facility] Test 00:00:00 [code = FALLS RISK Medical C enter SCREENING] Future Scheduled 2022-10-[address] [facility] Test 00:00:00 (12+) [code = Medical Center DEPRESSION SCREENING (12+)] Future Scheduled 2022-10-06 FALLS RISK SCREENING [facility] Test 00:00:00 [code = FALLS RISK Medical C enter SCREENING] Future Scheduled 2022-10-[address] [facility] Test 00:00:00 (12+) [code = Medical Center DEPRESSION SCREENING (12+)] Future Scheduled 2022-10-06 FALLS RISK SCREENING [facility] Test 00:00:00 [code = FALLS RISK Medical C enter SCREENING] Future Scheduled 2022-06-06 INFLUENZA VACCINE (#1) [facility] 00:00:00 [code = INFLUENZA Medical Ce nter VACCINE (#1)] Future Scheduled 2022-06-06 INFLUENZA VACCINE (#1) [facility] 00:00:00 [code = INFLUENZA Medical Ce nter VACCINE (#1)] Future Scheduled 2022-06-06 INFLUENZA VACCINE (#1) [facility] 00:00:00 [code = INFLUENZA Medical Ce nter VACCINE (#1)] Future Scheduled 2022-06-06 INFLUENZA VACCINE (#1) [facility] 00:00:00 [code = INFLUENZA Medical Ce nter VACCINE (#1)] Future Scheduled 2022-06-06 INFLUENZA VACCINE (#1) [facility] 00:00:00 [code = INFLUENZA Medical Ce nter VACCINE (#1)] Future Scheduled 2022-06-06 INFLUENZA VACCINE (#1) [facility] 00:00:00 [code = INFLUENZA Medical Ce nter VACCINE (#1)] Future Scheduled 2022-06-06 INFLUENZA VACCINE (#1) [facility] 00:00:00 [code = INFLUENZA Medical Ce nter VACCINE (#1)] Future Scheduled 2021-10-[address] [...] if no IPPE)] Future Scheduled 2021-10-[address] [facility] Test 00:00:00 (12+) [code = Medical Center DEPRESSION SCREENING (12+)] Future Scheduled 2021-10-06 FALLS RISK SCREENING [facility] Test 00:00:00 [code = FALLS RISK Medical C enter SCREENING] Future Scheduled 2021-10-[address] [facility] Test 00:00:00 (12+) [code = Medical Center DEPRESSION SCREENING (12+)] Future Scheduled 2021-10-06 FALLS RISK SCREENING [facility] 00:00:00 [code = FALLS RISK Medical C enter SCREENING] Future Scheduled 2021-10-[address] [facility] Test 00:00:00 (12+) [code = Medical Center DEPRESSION SCREENING (12+)] Future Scheduled 2021-10-06 FALLS RISK SCREENING [facility] Test 00:00:00 [code = FALLS RISK Medical C enter SCREENING] Future Scheduled 2019-08-22 PNEUMOCOCCAL 65+ YRS [facility] Test 00:00:00 (2 - PCV) [code = Medical Ce nter PNEUMOCOCCAL 65+ YRS (2 - PCV)] Future Scheduled 2019-08-22 PNEUMOCOCCAL 65+ YRS [facility] Test 00:00:00 (2 - PCV) [code = Medical Ce nter PNEUMOCOCCAL 65+ YRS (2 - PCV)] Future Scheduled 2019-08-22 PNEUMOCOCCAL 65+ YRS [facility] Test 00:00:00 (2 - PCV) [code = Medical Ce nter PNEUMOCOCCAL 65+ YRS (2 - PCV)] Future Scheduled 2019-08-22 PNEUMOCOCCAL 65+ YRS [facility] Test 00:00:00 (2 - PCV) [code = Medical Ce nter PNEUMOCOCCAL 65+ YRS (2 - PCV)] Future Scheduled 2019-08-22 PNEUMOCOCCAL 65+ YRS [facility] Test 00:00:00 (2 - PCV) [code = Medical Ce nter PNEUMOCOCCAL 65+ YRS (2 - PCV)] Future Scheduled 2019-08-22 PNEUMOCOCCAL 65+ YRS [facility] Test 00:00:00 (2 - PCV) [code = Medical Ce nter PNEUMOCOCCAL 65+ YRS (2 - PCV)] Future Scheduled 2019-08-22 PNEUMOCOCCAL 65+ YRS [facility] Test 00:00:00 (2 - PCV) [code = Medical Ce nter PNEUMOCOCCAL 65+ YRS (2 - PCV)] Future Scheduled 1994 SHINGLES VACCINES ([address] [facility] Test 00:00:00 of 2) [code = SHINGLES Medic al Center VACCINES (1 of 2)] Future Scheduled 1994 SHINGLES VACCINES ([address] [facility] Test 00:00:00 of 2) [code = SHINGLES Medic al Center VACCINES (1 of 2)] Future Scheduled 1994 SHINGLES VACCINES ([address] [facility] Test 00:00:00 of 2) [code = SHINGLES Medic al Center VACCINES (1 of 2)] Future Scheduled 1994 SHINGLES VACCINES ([address] [facility] Test 00:00:00 of 2) [code = SHINGLES Medic al Center VACCINES (1 of 2)] Future Scheduled 1994 SHINGLES VACCINES ([address] [facility] Test 00:00:00 of 2) [code = SHINGLES Medic al Center VACCINES (1 of 2)] Future Scheduled 1994 SHINGLES VACCINES ([address] [facility] Test 00:00:00 of 2) [code = SHINGLES Medic al Center VACCINES (1 of 2)] Future Scheduled 1994 SHINGLES VACCINES ([address] [facility] Test 00:00:00 of 2) [code = SHINGLES Medic al Center VACCINES (1 of 2)] Future Scheduled 1994 SHINGLES VACCINES ([address] [facility] Test 00:00:00 of 2) [code = SHINGLES Medic al Center VACCINES (1 of 2)] Future Scheduled 1994 SHINGLES VACCINES ([address] [facility] Test 00:00:00 of 2) [code = SHINGLES Medic al Center VACCINES (1 of 2)] Future Scheduled 1963 DTAP/TDAP/TD [facility]ACCINES [facility] 00:00:00 (1 - Tdap) [code = Medical C enter DTAP/TDAP/TD VACCINES (1 - Tdap)] Future Scheduled 1963 DTAP/TDAP/TD VACCINES [facility] 00:00:00 (1 - Tdap) [code = Medical C enter DTAP/TDAP/TD VACCINES (1 - Tdap)] Future Scheduled 1963 DTAP/TDAP/TD VACCINES [facility] 00:00:00 (1 - Tdap) [code = Medical C enter DTAP/TDAP/TD VACCINES (1 - Tdap)] Future Scheduled 1963 DTAP/TDAP/TD VACCINES [facility] 00:00:00 (1 - Tdap) [code = Medical C enter DTAP/TDAP/TD VACCINES (1 - Tdap)] Future Scheduled 1963 DTAP/TDAP/TD VACCINES [facility] 00:00:00 (1 - Tdap) [code = Medical C enter DTAP/TDAP/TD VACCINES (1 - Tdap)] Future Scheduled 1963 DTAP/TDAP/TD VACCINES [facility] 00:00:00 (1 - Tdap) [code = Medical C enter DTAP/TDAP/TD VACCINES (1 - Tdap)] Future Scheduled 1963 DTAP/TDAP/TD VACCINES [facility] 00:00:00 (1 - Tdap) [code = Medical C enter DTAP/TDAP/TD VACCINES (1 - Tdap)] Future Scheduled 1963 DTAP/TDAP/TD VACCINES [facility] 00:00:00 (1 - Tdap) [code = Medical C enter DTAP/TDAP/TD VACCINES (1 - Tdap)] Future Scheduled 1963 DTAP/TDAP/TD VACCINES [facility] 00:00:00 (1 - Tdap) [code = Medical C enter DTAP/TDAP/TD VACCINES (1 - Tdap)] Future Scheduled 1962 HEPATITIS C [facility]CRE[facility] 00:00:00 [code = HEPATITIS C Medical Center SCREENING] Future Scheduled 1962 HEPATITIS C [facility] 00:00:00 [code = HEPATITIS C Medical Center SCREENING] Future Scheduled 1962 HEPATITIS C [facility] 00:00:00 [code = HEPATITIS C Medical Center SCREENING] Future Scheduled 1962 HEPATITIS C [facility] 00:00:00 [code = HEPATITIS C Medical Center SCREENING] Future Scheduled 1962 HEPATITIS C [facility] 00:00:00 [code = HEPATITIS C Medical Center SCREENING] Future Scheduled 1962 HEPATITIS C [facility] 00:00:00 [code = HEPATITIS C Medical Center SCREENING] Future Scheduled 1962 HEPATITIS C [facility] 00:00:00 [code = HEPATITIS C Medical Center SCREENING] Future Scheduled 1962 HEPATITIS C [facility] 00:00:00 [code = HEPATITIS C Medical Center SCREENING] Future Scheduled 1962 HEPATITIS C [facility] 00:00:00 [code = HEPATITIS C Medical Center SCREENING] Future Scheduled 1945-01-08 COVID-19 VACCINE (#1) [facility] 00:00:00 [code = COVID-[address] VACCINE (#1)] Future Scheduled 1945-01-08 COVID-19 VACCINE (#1) [facility] 00:00:00 [code = COVID-[address] VACCINE (#1)] Future Scheduled 1945-01-08 COVID-19 VACCINE (#1) [facility] 00:00:00 [code = COVID-[address] VACCINE (#1)] Future Scheduled 1945-01-08 COVID-19 VACCINE (#1) [facility] 00:00:00 [code = COVID-[address] VACCINE (#1)] Future Scheduled 1945-01-08 COVID-19 VACCINE (#1) [facility] 00:00:00 [code = COVID-[address] VACCINE (#1)] Future Scheduled 1945-01-08 COVID-19 VACCINE (#1) [facility] 00:00:00 [code = COVID-[address] VACCINE (#1)] Future Scheduled 1945-01-08 COVID-19 VACCINE (#1) [facility] 00:00:00 [code = COVID-[address] VACCINE (#1)] Future Scheduled 1945-01-08 COVID-19 VACCINE (#1) [facility] 00:00:00 [code = COVID-[address] VACCINE (#1)] Future Scheduled 1945-01-08 COVID-19 VACCINE (#1) [facility] 00:00:00 [code = COVID-[address] VACCINE (#1)] Future Scheduled 1944 DXA SCAN [code = DXA [facility] 00:00:00 SCAN] [facility] Future Scheduled 1944 DXA SCAN [code = DXA [facility] 00:00:00 SCAN] [facility] Future Scheduled 1944 DXA SCAN [code = DXA [facility] 00:00:00 SCAN] [facility] Future Scheduled 1944 DXA SCAN [code = DXA [facility] 00:00:00 SCAN] [facility] Future Scheduled 1944 DXA SCAN [code = DXA [facility] Test 00:00:00 SCAN] [facility] Future Scheduled 1944 DXA SCAN [code = DXA [facility] 00:00:00 SCAN] [facility] Future Scheduled 1944 DXA SCAN [code = DXA [facility] Test 00:00:00 SCAN] [facility] Future Scheduled 1944 DXA SCAN [code = DXA [facility] Test 00:00:00 SCAN] [facility] Future Scheduled 1944 DXA SCAN [code = DXA [facility] Test 00:00:00 SCAN] Medical Center Encounters Start End Encounter Admission Attending Care Care Encounter Source Date/Time Date/Time Type Type Clinicians Facility Department ID 2023-01-15 Outpatient Quintanilla, STLMLC STLMLC [id number] Common 10:35:[id number] [facility] 2022-12-19 Outpatient Quintanilla, STLMLC STLMLC [id number] Common 14:02:[id number] [facility] 2022-10-29 Outpatient Quintanilla, STLMLC STLMLC [id number] Common 10:35:[id number] [facility] 2022-09-24 Outpatient Quintanilla, STLMLC STLMLC [id number] Common 14:24:[id number] [facility] 2022-09-11 Outpatient Quintanilla, STLMLC STLMLC [id number] Common 10:49:[id number] [facility] 2022-09-06 Outpatient Quintanilla, STLMLC STLMLC [id number] Common 11:05:[id number] [facility] 2022-09-05 Outpatient Quintanilla, STLMLC STLMLC [id number] Common 10:58:[id number] [facility] 2022-08-12 Outpatient Quintanilla, STLMLC STLMLC [id number] Common 08:49:[id number] [facility] 2022-07-19 Outpatient Quintanilla, STLMLC STLMLC [id number] Common 09:59:[id number] [facility] 2022-06-13 Outpatient Quintanilla, STLMLC STLMLC [id number] Common 14:20:[id number] [facility] 2022-05-30 Outpatient EL GUILLORY, [facility] Surgery [id number] SLE 14:09:30 MACKYER 2022-05-30 Outpatient Quintanilla, STLMLC STLMLC [id number] Common 10:41:[address] [facility] 2021-08-06 Emergency [facility] [id number] Univers 18:30:44 ity [facility] 2021-08-06 Emergency [facility] [id number] Univers 13:25:07 ity [facility] 2021-08-02 Emergency [facility] [id number] Univers 17:26:[address] [facility] 2023-04-16 2023-04-16 Outpatient PREZASSNEHAL [id number] Snehal 11:30:00 11:30:00 LD Seybol sav 2023-04-04 2023-04-04 Outpatient PREZAS, SNEHAL PINEDA [id number] Snehal 00:00:00 00:00:00 LD Moralesol sav 2023-02-28 2023-02-28 [facility] 1.2.840.1 [id number] Methodi 11:57:00 23:59:00 Encounter Pauline 55141.1.[address] 3.430.2.7 Hospit a .3.633406 l .8 2023-02-28 2023-02-28 [facility] Chun Cage 1.2.840.1 [id number] Methodi 11:57:00 23:59:00 Encounter Hwan 72939.1.[address] 3.430.2.7 Hospit a .3.458297 l .8 2023-02-28 2023-02-28 Travel 1.2.840.1 [id number] [id number] Methodi 00:00:00 00:00:[address] 3.430.2.7 0.2.7.3.698 Ho spita .3.128784 084.8 l .8 2023-02-28 2023-02-28 Travel 1.2.840.1 1.2.442.162 [id number] Methodi 00:00:00 00:00:[address] 3.430.2.7 0.2.7.3.698 Ho spita .3.330119 084.8 l .8 2023-02-13 2023-02-13 Office Chun Cage 1.2.840.2 [id number] Methodi 13:00:00 13:44:16 Visit Pauline 71881.1.[address] 3.430.2.7 Hospit a .3.912971 l .8 2023-02-13 2023-02-13 Office [place]un C[place] 1.2.840.5 [id number] Methodi 13:00:00 13:44:16 Visit Pauline 58530.1.[address] 3.430.2.7 Hospit a .3.939076 l .8 2023-02-13 2023-02-13 Travel 1.2.840.1 1.2.633.580 [id number] Methodi 00:00:00 00:00:[address] 3.430.2.7 0.2.7.3.698 Ho spita .3.073509 084.8 l .8 2023-02-13 2023-02-13 Travel 1.2.840.1 1.2.410.371 8401 [id number] Methodi 00:00:00 00:00:[address] 3.430.2.7 0.2.7.3.698 Ho spita .3.449350 084.8 l .8 2022-11-01 2022-11-01 Stefani Underwood [facility] 1.2.840.114 [id number] [id number] [employer] 00:00:00 00:00:00 Divas Diamond 350.1.13.10 ity of [place] 4.2.7.2.686 Alber as KHURRAM?BLEA [id number] [address] MEDICAL OFFICE BUILDING 2022-06-18 2022-06-18 [facility] VERONICA Guillory [facility] [id number] [facility] 10:00:00 18:37:00 [facility] 2022-06-18 2022-06-18 Outpatient EYAL RANDALL Surgery [id number] [address] [place] [address] 10:00:00 18:37:00 [facility] 2022-06-18 2022-06-18 [facility] [id number] 10:00:00 18:37:00 Encounter [facility] 2022-06-18 2022-06-18 [facility] [id number] 11:51:00 15:12:00 [facility] 2022-06-18 2022-06-18 [facility] [id number] 11:51:00 15:12:00 [facility] 2022-03-08 2022-03-08 Outpatient Justina WHITEHEAD [facility] [id number] Univers 11:00:00 11:00:00 [facility] 2022-01-28 2022-01-28 [facility] 1.2.840.114 [id number] Univers 00:00:00 00:00:00 Wondiful A HEALTH 350.1.13.10 ity of [place] 4.2.7.2.686 Alber as KHURRAM?BLEA [phone] [address] [facility]ICE [facility] 2021-12-25 2021-12-25 Outpatient Justina WHITEHEAD [facility] [id number] Univers 11:15:00 11:15:00 [facility] 2021-11-09 2021-11-09 [facility] 1.2.840.114 [id number] Univers 00:00:00 00:00:00 Management Wondiful A HEALTH 350.1.13.10 ity of [place] 4.2.7.2.686 Alber as KHURRAM?BLEA [phone] [address] 2021-11-07 2021-11-07 Director Of Corporate Marketing Lab, Ang - Mal [facility] 1.2.840.1 14 [id number] Univers 10:30:00 11:08:15 Visit Gregoria Underwoodful A HEALTH 350.1.13.1 0 ity of [place] 4.2.7.2.686 Alber as KHURRAM?BLEA [phone] Ma yesi MOY 353 [facility] 2021-11-07 2021-11-07 Director Of Corporate Marketing Lab, Ang - Db [facility] 1.2.840.1 14 [id number] Univers 10:30:00 10:45:00 Visit Kj Suman A HEALTH 350.1.13.1 0 ity of [place] 4.2.7.2.686 Alber as KHURRAM?BLEA [phone] Ma yesi MOY [address] [place] [address] [facility] 2021-11-07 2021-11-07 Outpatient R KJ [facility] [id number] Univers 10:30:00 10:30:00 WONDIFUL ity o f [facility] 2021-11-07 2021-11-07 Outpatient [facility] [id number] Univers 10:30:00 10:30:00 WONDIFUL ity o f [facility] 2021-11-07 2021-11-07 Office [facility] 1.2.840.114 [id number] Univers 10:00:00 10:26:57 Visit Wondiful A HEALTH 350.1.13.10 ity of [place] 4.2.7.2.686 Alber as KHURRAM?BLEA [phone] [address] 2021-10-23 2021-10-23 Refill [facility] 1.2.840.114 [id number] Univers 00:00:00 00:00:00 Wondiful A HEALTH 350.1.13.10 ity of [place] 4.2.7.2.686 Alber as KHURRAM?BLEA [phone] [facility] [address] [facility] 2021-09-03 2021-09-03 Telephone [facility] 1.2.840.114 [id number] Univers 00:00:00 00:00:00 Wondiful A HEALTH 350.1.13.10 ity of [place] 4.2.7.2.686 Alber as KHURRAM?BLEA [id number] [address] 2021-08-28 2021-08-28 Outpatient R [facility] [id number] Univers 10:30:00 10:30:00 WONDIFUL ity o f [facility] 2021-08-28 2021-08-28 Outpatient R KJ [facility] [id number] [facility] 10:30:00 10:30:00 WONDIFUL ity o f [facility] 2021-08-21 2021-08-21 Gregganahi [facility] 1.2.840.114 [id number] Univers 00:00:00 00:00:00 Peter ILANA 350.1.13.10 i ty of [facility] 4.2.[place].2.[place] [phone] [address] 2021-08-21 2021-08-21 Telephone [facility] 1.2.840.114 [id number] Univers 00:00:00 00:00:00 Wondiful A HEALTH 350.1.13.10 ity of [place] 4.2.7.2.686 Alber as KHURRAM?BLEA [phone] [address] [facility] 2021-08-21 2021-08-21 [place] [facility] 1.2.840.114 [id number] Univers 00:00:00 00:00:00 Wondiful A HEALTH 350.1.13.10 ity of [place] 4.2.7.2.686 Alber as KHURRAM?BLEA [phone] [address] [facility] 2021-08-16 2021-08-16 [place] [facility] 1.2.840.114 [id number] Univers 00:00:00 00:00:00 Wondiful A HEALTH 350.1.13.10 ity of [place] 4.2.7.2.686 Alber as KHURRAM?BLEA [id number] [address] [facility] 2021-08-11 2021-08-11 Case [facility] 1.2.840.114 [id number] Univers 00:00:00 00:00:00 Management Wondiful A HEALTH 350.1.13.10 ity of [place] 4.2.7.2.686 Alber as KHURRAM?BLEA [phone] Ma yesi MOY [address] [place] MEDICAL [facility] 2021-08-02 2021-08-02 Hospital [facility] 1.2.989.985 [id number] Univers 11:00:00 23:59:00 Encounter Wondiful A HEALTH 350.1.13.10 ity of [place] 4.2.7.2.686 Alber as KHURRAM?BLEA [phone] Ma yesi MOY 809 [facility] 2021-08-02 2021-08-02 Director Of Corporate Marketing Lab, Ang - Db [facility] 1.2.840.1 14 [id number] Univers 11:49:21 12:32:41 Visit Suman Undewrood HEALTH 350.1.13.1 0 ity of [place] 4.2.7.2.686 Alber as KHURRAM?BLEA [phone] Ma yesi MOY 353 [facility] 2021-08-02 2021-08-02 Outpatient R KJ [facility] [id number] Univers 11:45:00 12:32:41 WONDIFUL ity o f [facility] 2021-08-02 2021-08-02 Outpatient R KJ [facility] [id number] Univers 11:45:00 11:45:00 WONDIFUL ity o f [facility] 2021-08-02 2021-08-02 Outpatient R KJ [facility] [id number] Univers 11:00:00 11:44:39 WONDIFUL ity o f [facility] 2021-08-02 2021-08-02 Office [facility] 1.2.840.114 [id number] Univers 10:37:01 11:44:39 Visit Wondiful A HEALTH 350.1.13.10 ity of [place] 4.2.7.2.686 Alber as KHURRAM?BLEA [phone] Ma yesi MOY 044 [facility] 2021-08-02 2021-08-02 Telephone [facility] 1.2.840.114 [id number] Univers 00:00:00 00:00:00 Wondiful A HEALTH 350.1.13.10 ity of [place] 4.2.7.2.686 Alber as KHURRAM?BLEA [phone] Ma dical KNEY [address] [place] MEDICAL OFFICE BUILDING 2021-07-30 2021-07-30 Outpatient R LOTTIE, [facility] [id number] Univers 11:00:00 11:00:00 SENDIL ity of [facility] 2021-07-24 2021-07-24 Director Of Corporate Marketing Ted, Adc Lab Main [facility] 1.2.8 40.114 [id number] Univers 12:02:05 12:17:05 Visit Marion Vu 350.1.13.10 ity of [place].2.7.2.686 [place] [facility] [phone] Ma yesi alta 353 [facility] 2021-07-24 2021-07-24 Outpatient R JANINE MENEZES, [facility] [id number] Univers 12:00:00 12:00:00 MARION roldan [facility] 2021-07-24 2021-07-24 Orders Doctor QUINTERO 1.2.840.114 [id number] Univers 00:00:00 00:00:00 Only Unassigned, ONESIMO 350.1.13.10 ity of [place] [facility] 4.2.7.2.686 Alber as [phone] [facility] [address] [place] 2021-07-22 2021-07-22 Emergency [facility] 1.2.612.989 [id number] Univers 14:26:00 16:01:00 Nilo Burrows 350.1.13.10 i ty of [place] 4.2.7.2.686 [place] [phone] [facility] 084 [place] 2021-07-22 2021-07-22 Emergency X [facility] ERT [id number] Univers 14:26:00 16:01:00 NILO roldan [facility] 2021-07-22 2021-07-22 Orders Doctor INGRID 1.2.840.114 [id number] Univers 00:00:00 00:00:00 Only Unassigned, ONESIMO 350.1.13.10 ity of [place] [facility] 4.2.7.2.686 Alber as [phone] [facility] 00[address] [place] 2021-07-19 2021-07-19 Refill [facility] 1.2.840.114 [id number] Univers 00:00:00 00:00:00 Wondiful A Health 350.1.13.10 ity of [place] 4.2.7.2.686 Alber as Khurram?Blea [phone] [address] Medical Office Building 2021-07-19 2021-07-19 Stef[facility] 1.2.840.114 [id number] Univers 00:00:00 00:00:00 Wondiful A [place] 350.1.13.10 [place]y of [place].2.[place] Profess[place] [phone] [address] 2021-06-12 2021-06-12 Outpatient BRODY CARCAMO [facility] [id number] Univers 10:00:00 10:00:00 ity of [facility] 2021-06-12 2021-06-12 Outpatient BRODY CARCAMO [facility] [id number] Univers 10:00:00 10:00:00 ity of [facility] 2021-06-12 2021-06-12 Transition Tessa Mohamud 1.2.840.114 [id number] Univers 00:00:00 00:00:00 of Care Sandra Chavez 350.1.13.10 i ty of [place] 4.2.7.2.686 [place] [phone] [place] [address] [place] 2021-06-01 2021-06-10 [facility] Last Huff 1.2.840.1 14 [id number] Univers 08:59:00 16:00:00 Encounter Tramaine Monique 350.1.13.10 ity of [facility] 4.2.7.2.68 6 [place] Yamilet Humphreys [phone] [place] [address] [address] 2021-06-01 2021-06-01 Travel 1.2.840.1 1.2.054.678 [id number] Univers 00:00:00 00:00:00 34846.1.1 350.1.13.10 ity of 3.104.2.7 4.[place].3.698 [place] .3.715004 084.8 Medica l .8 [place] 2021-05-30 2021-05-30 Telephone Farideh, 1.2.840.0 [id number] Univers 00:00:00 00:00:00 Migdalia Rowley 63205.1.1 ity of 3.104.2.7 [place] .3.261214 Medica l .8 [place] 2021-05-28 2021-05-28 Outpatient R KJ [facility] [id number] Univers 13:00:00 13:00:00 WONDIFUL ity o f [facility] 2021-05-24 2021-05-24 Office Ronnie Montes.2.840.5 [id number] Univers 14:54:06 15:33:35 Visit Praveena 93207.1.1 ity of 3.104.2.7 [place] .3.583745 Medica l .8 [place] 2021-05-24 2021-05-24 Outpatient [facility] [id number] Univers 15:00:00 15:00:00 PRAVEENA jamar [facility] 2021-05-24 2021-05-24 Outpatient R PATRICIA RODRÍGUEZ [facility] [id number] Univers 11:00:00 11:00:00 PATRICIA RODRÍGUEZ i ty [facility] 2021-05-24 2021-05-24 Travel 1.2.840.1 1.2.707.013 [id number] Univers 00:00:00 00:00:00 81045.1.1 350.1.13.10 ity of 3.104.2.7 4[place].3.698 [place] .3.324251 084.8 Medica l .8 [place] 2021-05-22 2021-05-22 Outpatient R [facility] [id number] Univers 15:00:00 15:00:00 PRAVEENA ity [facility] 2021-05-21 2021-05-21 Telephone Ronnie Underwood.2.840.2 [id number] Univers 00:00:00 00:00:00 Wondiful A 36971.1.1 i ty of 3.104.2.7 [place] .3.774400 Medica l .8 [place] 2021-05-16 2021-05-16 Orders Doctor 1.2.840.5 [id number] Univers 00:00:00 00:00:00 Only Unassigned, 22506.1.1 ity of [place] 3.104.2.7 [place] .3.015168 Medica l .8 [place] 2021-05-15 2021-05-15 Transition Cade, 1.2.840.4 [id number] Univers 00:00:00 00:00:00 of Jennifer [place] 53660.1.1 ity of 3.104.2.7 [place] .3.880886 Medica l .8 [place] 2021-05-10 2021-05-13 [facility] Last Huff 1.2.840.1 [id number] Univers 11:59:00 14:00:00 Encounter Tramaine Monique 37028.1.1 ity of 3.104.2.7 [place] .3.484597 Medica l .8 [place] 2021-05-10 2021-05-10 Travel 1.2.840.1 1.2.857.601 [id number] Univers 00:00:00 00:00:00 03331.1.1 350.1.13.10 ity of 3.104.2.7 4.[place].7.3.698 [place] .3.402351 084.8 Medica l .8 [place] 2021-05-10 2021-05-10 Orders Doctor 1.2.840.6 [id number] Univers 00:00:00 00:00:00 Only Unassigned, 66625.1.1 ity of [place] 3.104.2.7 [place] .3.791553 Medica l .8 [place] 2021-04-30 2021-04-30 Orders Doctor 1.2.840.0 [id number] Univers 00:00:00 00:00:00 Only Unassigned, 52839.1.1 ity of [place] 3.104.2.7 [place] .3.192211 Medica l .8 [place] 2021-04-30 2021-04-30 Telephone Lottie, 1.2.840.4 [id number] Univers 00:00:00 00:00:00 Sendil K.H. 86783.1.1 ity of 3.104.2.7 [place] .3.540865 Medica l .8 [place] 2021-04-27 2021-04-27 Office Kj 1.2.840.2 [id number] Univers 13:03:32 14:05:28 Visit Wondiful A 61912.1.1 i ty of 3.104.2.7 [place] .3.011101 Medica l .8 [place] 2021-04-27 2021-04-27 Outpatient R KJ, [facility] [id number] Univers 13:00:00 13:00:00 WONDIFUL ity o f [facility] 2021-04-27 2021-04-27 Travel 1.2.840.1 1.2.303.727 [id number] Univers 00:00:00 00:00:00 57408.1.1 350.1.13.10 ity of 3.104.2.7 4.[place].7.3.698 [place] .3.356580 084.8 Medica l .8 [place] 2021-04-03 2021-04-03 Outpatient R LOTTIE [facility] [id number] Univers 13:00:00 13:00:00 SENDIL ity [facility] 2021-04-03 2021-04-03 Outpatient R LOTTIE [facility] [id number] Univers 13:00:00 13:00:00 SENDIL ity [facility] 2021-03-28 2021-03-28 Office Lottie 1.2.840.7 [id number] Univers 11:05:15 11:39:40 Visit Sendil K.H. 22739.1.1 ity of 3.104.2.7 [place] .3.950866 Medica l .8 [place] 2021-03-28 2021-03-28 Outpatient Justina TAFOYA [facility] [id number] Univers 11:00:00 11:00:00 SENDIL ity [facility] 2021-03-28 2021-03-28 Travel 1.2.840.1 1.2.087.928 [id number] Univers 00:00:00 00:00:00 36662.1.1 350.1.13.10 ity of 3.104.2.7 4.[place].3.698 [place] .3.087153 084.8 Medica l .8 [place] 2021-03-27 2021-03-27 Refanahi Underwood, 1.2.840.0 [id number] Univers 00:00:00 00:00:00 Wondiful A 99017.1.1 i ty of 3.104.2.7 [place] .3.435312 Medica l .8 [place] 2021-03-26 2021-03-26 Refanahi Underwood, 1.2.840.7 [id number] Univers 00:00:00 00:00:00 Wondiful A 08115.1.1 i ty of 3.104.2.7 [place] .3.517275 Medica l .8 [place] 2021-03-09 2021-03-09 Outpatient Justina TAFOYA [facility] [id number] Univers 11:00:00 11:00:00 SENDIL ity [facility] 2021-03-09 2021-03-09 Outpatient Justina TAFOYA [facility] [id number] Univers 11:00:00 11:00:00 SENDIL ity [facility] 2021-02-27 2021-02-27 Outpatient Justina UNDERWOOD [facility] [id number] Univers 16:30:00 16:30:00 WONDIFUL ity o f [facility] 2021-02-15 2021-02-15 Outpatient Justina TAFOYA [facility] [id number] Univers 11:00:00 11:00:00 SENDIL ity [facility] 2021-02-15 2021-02-15 Outpatient Justina TAFOYA [facility] [id number] Univers 11:00:00 11:00:00 SENDIL ity [facility] 2021-01-25 2021-01-25 Outpatient R RODRÍGUEZMARTINAMELIA [facility] [id number] Univers 10:30:00 11:33:46 PATRICIA RODRÍGUEZ i ty of [facility] 2021-01-25 2021-01-25 Outpatient R RODRÍGUEZ PATRICIA [facility] [id number] Univers 10:30:00 10:30:00 PATRICIA RODRÍGUEZ i ty of [facility] 2021-01-23 2021-01-23 Outpatient R LOTTIE [facility] [id number] Univers 10:00:00 10:00:00 SENDIL ity [facility] 2020-12-29 2020-12-29 Outpatient R LOTTIE [facility] [id number] Univers 11:30:00 11:30:00 SENDIL ity [facility] 2020-12-28 2020-12-28 Outpatient R KJ [facility] [id number] Univers 14:00:00 14:00:00 WONDIFUL ity o f [facility] 2020-12-05 2020-12-05 Outpatient BRODY CARCAMO [facility] [id number] Univers 10:00:00 10:00:00 ity of [facility] 2020-11-29 2020-11-29 Outpatient BRODY CARCAMO [facility] [id number] Univers 00:00:00 00:00:00 ity [facility] 2020-11-22 2020-11-22 Outpatient BRODY CARCAMO [facility] [id number] Univers 00:00:00 00:00:00 ity [facility] 2020-11-17 2020-11-17 Outpatient R LOTTIE [facility] [id number] Univers 14:30:00 14:30:00 SENDIL ity [facility] 2020-11-14 2020-11-14 Outpatient BRODY CARCAMO [facility] [id number] Univers 13:45:00 13:45:00 ity [facility] 2020-10-27 2020-10-27 Outpatient R KJ [facility] [id number] Univers 11:15:00 11:15:00 WONDIFUL ity o f [facility] 2020-09-22 2020-09-22 Outpatient R MICHAEL [facility] [id number] Univers 16:00:00 16:00:00 SAHARA itquentin [facility] 2020-09-18 2020-09-18 Outpatient R BECKIE BEDOYA [facility] [id number] Univers 13:30:00 13:30:00 jamar [facility] 2020-09-05 2020-09-05 Outpatient R AMY [facility] [id number] Univers 14:30:00 15:53:51 RENEE roldan [facility] 2020-09-05 2020-09-05 Outpatient R AMY [facility] [id number] Univers 14:30:00 14:30:00 RENEE roldan [facility] 2020-08-09 2020-08-09 Outpatient R KJ [facility] [id number] Univers 09:20:21 23:59:00 WONDIFUL ity o f [facility] 2020-08-09 2020-08-09 Outpatient R KJ [facility] [id number] Univers 00:00:00 00:00:00 WONDIFUL ity o f [facility] 2020-08-03 2020-08-03 Outpatient R KJ [facility] [id number] Univers 11:15:00 11:15:00 WONDIFUL ity o f [facility] 2020-07-17 2020-07-17 Outpatient R KJ [facility] [id number] Univers 11:00:00 11:00:00 WONDIFUL ity o f [facility] 2020-07-17 2020-07-17 [facility] 1.2.840.114 [id number] 00:00:00 00:00:00 Wondiful A Health 350.1.13.10 [place] 4.2.7.2.686 Professio [phone] nal 0[address] 2020-07-12 2020-07-12 Telephone [facility] 1.2.840.114 [id number] 00:00:00 00:00:00 Wondiful A Health 350.1.13.10 [place] 4.2.7.2.686 Professio [phone] [place] [address] Office [address] 2020-07-11 2020-07-11 Telephone [facility] 1.2.840.114 [id number] 00:00:00 00:00:00 Wondiful A Health 350.1.13.10 [place] 4.2.7.2.686 Professio [phone] [place] [address] Office Building [facility] 2020-06-28 2020-06-28 [place] [facility] 1.2.840.114 [id number] 00:00:00 00:00:00 Wondiful A Health 350.1.13.10 [place] 4.2.7.2.686 Professio [phone] [place] [address] Office Building [facility] 2020-06-27 2020-06-27 Outpatient R KJ [facility] [id number] Univers 15:00:00 15:00:00 WONDIFUL ity o f [facility] 2020-05-11 2020-05-27 Inpatient Dabaghi, HCAPM LABO [id number] [facility] 15:00:00 08:02:06 Sali 30 [facility] 2020-05-27 2020-05-20 Inpatient EL Rita, HCAWU SURG [id number] [facility] 11:30:00 07:00:00 Sali 60 [facility] 2020-04-28 2020-04-28 [place] [facility] 1.2.840.114 [id number] 00:00:00 00:00:00 Wondiful A [place] 350.1.13.10 [place] 4.2.7.2.686 Professio [phone] [address] 2020-04-28 2020-04-28 Orders Doctor INGRID 1.2.840.114 [id number] 00:00:00 00:00:00 Only Unassigned, ONESIMO 350.1.13.10 [place] [facility] 4.2.7.2.686 [id number] 2020-04-21 2020-04-21 [place] [facility] 1.2.840.114 [id number] 00:00:00 00:00:00 Wondiful A [place] 350.1.13.10 [place] 4.2.7.2.686 Professio [phone] [address] 2020-04-20 2020-04-20 Orders Doctor INGRID 1.2.840.114 [id number] 00:00:00 00:00:00 Only Unassigned, ONESIMO 350.1.13.10 [place] [facility] 4.2.7.2.686 [id number] 009 2020-04-14 2020-04-14 Telephone [facility] 1.2.840.114 [id number] 00:00:00 00:00:00 Wondiful A Health 350.1.13.10 [place] 4.2.7.2.686 Professio [phone] [address] 2020-03-30 2020-03-30 [facility] 1.2.840.114 [id number] 00:00:00 00:00:00 Wondiful A [place] 350.1.13.10 [place] 4.2.7.2.686 Professio [phone] [address] 2020-02-15 2020-02-15 Telemedici [facility] 1.2.840.114 [id number] 07:17:35 09:48:52 ne Visit Wondiful A [place] 350.1.13.10 [place] 4.2.7.2.686 Professio [phone] [address] 2020-02-15 2020-02-15 Outpatient [facility] [id number] Univers 09:00:00 09:00:00 WONDIFUL ity o f [facility] 2020-01-27 2020-01-27 [place] [facility] 1.2.840.114 [id number] 00:00:00 00:00:00 Wondiful A Health 350.1.13.10 [place] 4.2.7.2.686 Professio [phone] [address] 2020-01-12 2020-01-12 Emergency [facility] [id number] [id number] 15:43:26 16:46:00 Last [place]rows 350.1.13.10 [place] 4.2.7.2.686 [place] [id number] 084 2020-01-12 2020-01-12 Emergency X [facility] ERT [id number] Univers 15:43:26 16:46:00 LAST roldan [facility] 2020-01-09 2020-01-09 Outpatient R [facility] [id number] Univers 11:00:00 11:00:00 jamar [facility] 2020-01-08 2020-01-08 Outpatient R NUBIA [facility] [id number] Univers 17:00:00 17:00:00 FELY roldan [facility] 2019-12-15 2019-12-15 Outpatient R KELY, [facility] [id number] Univers 13:00:00 13:00:00 JOEY [facility] 2019-12-05 2019-12-05 [facility] 1.2.840.114 [id number] 00:00:00 00:00:00 Management Wondiful A Health 350.1.13.10 [place] 4.2.7.2.686 Professio [phone] nal 044 Office [address] One 2019-12-02 2019-12-02 Outpatient [facility] [id number] Univers 11:30:00 11:30:00 WONDIFUL ity o f [facility] 2019-11-30 2019-11-30 Outpatient [facility] [id number] Univers 10:08:46 23:59:00 WONDIFUL ity o f [facility] 2019-11-30 2019-11-30 Outpatient R KJ [facility] [id number] Univers 00:00:00 00:00:00 WONDIFUL ity o f [facility] 2019-11-26 2019-11-26 Outpatient [facility] [id number] Univers 10:30:00 10:23:01 WONDIFUL ity o f [facility] 2019-11-26 2019-11-26 [facility] [id number] 09:35:51 10:23:01 Visit [facility] [id number] [place] [id number] Professio [phone] nal 044 Office Building One Results Test Description Test Time Test Comments Results Result Comments Source POC-Glucose meter 2022-06-18 16:06:35 Test Item Value Reference Range Interpretation Comme nts POC-Glucose Meter (test code = 202 mg/dL 70-110 H : TESTED AT [facility] [address] [place] [address] 1538) [facility], [facility] 30: Final Armature Tester/Techni anna ID = [id number] for BATTAD, LESLIE Lab Interpretation (test code = Abnormal 76743-0) [facility]-Glucose [id number] 16:06:35 Test Item Value Reference Range Interpretation Comments POC-Glucose Meter (test 202 mg/dL 70-110 H : TE STED AT [facility] code = 1538) [address] [place] [address], [facility] 30: Final Armature Tester/Techni anna ID = [id number] for BATTAD, LESLIE Lab Interpretation (test Abnormal code = 94685-7) [facility]-Glucose [id number] 16:06:35 Test Item Value Reference Range Interpretation Comments POC-Glucose Meter (test 202 mg/dL 70-110 H : TE STED AT [facility] code = 1538) [address] [place] [address], [facility] 30: Final Armature Tester/Techni anna ID = [id number] for BATTAD, LESLIE Lab Interpretation (test Abnormal code = 11916-4) [facility]-Glucose [id number] 16:06:35 Test Item Value Reference Range Interpretation Comments POC-Glucose Meter (test 202 mg/dL 70-110 H : TE STED AT [facility] code = 1538) [address] [place] [address], [facility] 30: Final Armature Tester/Techni anna ID = [id number] for BATTAD, LESLIE Lab Interpretation (test Abnormal code = 40682-6) [facility]-Glucose [id number] 16:06:35 Test Item Value Reference Range Interpretation Comments POC-Glucose Meter (test 202 mg/dL 70-110 H : TE STED AT [facility] code = 1538) [address] [place] [address], [facility] 30: Final Armature Tester/Techni anna ID = [id number] for BATTAD, LESLIE Lab Interpretation (test Abnormal code = 36761-8) [facility]-Glucose [id number] 16:06:35 Test Item Value Reference Range Interpretation Comments POC-Glucose Meter (test 202 mg/dL 70-110 H : TE STED AT [facility] code = 1538) [address] [place] [address], 770 30: Final Armature Tester/Techni anna ID = [id number] for BATTAD, LESLIE Lab Interpretation (test Abnormal code = 93427-1) [facility]-Glucose [id number] 16:06:35 Test Item Value Reference Range Interpretation Comments POC-Glucose Meter (test 202 mg/dL 70-110 H : TE STED AT [facility] code = 1538) [address] [place] [address], 770 30: Final Armature Tester/Techni anna ID = [id number] for BATTAD, LESLIE Lab Interpretation (test Abnormal code = 69482-9) [facility]-Glucose [id number] 16:06:35 Test Item Value Reference Range Interpretation Comments POC-Glucose Meter (test 202 mg/dL 70-110 H : TE STED AT [facility] code = 1538) [address] [place] [address], 770 30: Final Armature Tester/Techni anna ID = [id number] for BATTAD, LESLIE Lab Interpretation (test Abnormal code = 33240-9) [facility]-Glucose [id number] 16:06:35 Test Item Value Reference Range Interpretation Comments POC-Glucose Meter (test 202 mg/dL 70-110 H : TE STED AT [facility] code = 1538) [address] [place] [address], 770 30: Final Armature Tester/Techni anna ID = [id number] for BATTAD, LESLIE Lab Interpretation (test Abnormal code = 30423-3) [facility]-GLUCOSE [id number] 16:06:35 Test Item Value Reference Range Interpretation Comments POC-GLUCOSE METER 202 mg/dL 70-110 H : TESTED A T [facility] 6720 (BEAKER) (test code = [facility], 1538) [address]: Final Armature Tester/Techni anna ID = [id number] for BA TTAD, LESLIE BASIC METABOLIC [id number] 12:33:29 Test Item Value Reference Range Interpretation [...] eGF R is based on the CKD-EPI 2020 equation that d oes not use a race coefficientEsti mated GFR is not as accur ate as Creatinine Kathe lacey in predicting glom erular filtration rate . Estimated GFR is not appl icable for dialysis patien ts Final Armature Tester ID - PIAYA [id number] 12:28:05 Test Item Value Reference Range Interpretation Comments PARTIAL THROMBOPLASTIN TIME 29.0 seconds 22.5-36.0 (BEAKER) (test code = 760) PROTHROMBIN TIME/[id number] 12:27:26 Test Item Value Reference Range Interpretation Comments PROTIME (BEAKER) 14.5 seconds 11.9-14.2 H (test code = 759) INR (BEAKER) (test 1.20 See_Comment [Automat ed message] code = 370) The system [employer] generated this result transmitted ref erence range: <=5.90. The reference range was not used to int erpret this result as normal/abnormal . RECOMMENDED COUMADIN/WARFARIN INR THERAPY RANGESSTANDARD DOSE: 2.0 - 3.0 Includes: PROPHYLAXIS for venous thrombosis, systemic embolization; TREATMENT for venous thrombosis and/or pulmonary embolus.HIGH RISK: Target INR is 2.5-3.5 for patients with mechanical heart valves.CBC W/PLT COUNT & AUTO [id number] 12:20:06 Test Item Value Reference Range Interpretation [...] PERCENT (BEAKER) (test code = 2801) POCT-GLUCOSE [id number] 11:30:29 Test Item Value Reference Range Interpretation Comments POC-GLUCOSE METER 233 mg/dL 70-110 H : TESTED A T [facility] 6720 (BEAKER) (test code = DALIL[place], 1538) [address]: Final Armature Tester/Techni anna ID = [id number] for CR IDALIA MORATAYA COMPREHENSIVE METABOLIC [id number] 05:31:58 Test Item Value Reference Range Interpretation Comments GLUCOSE (test code = 165 MG/DL 70-99 H 2216) BUN (test code = 32 MG/DL 8-23 H 2207) CREATININE (test 1.52 MG/DL 0.60-1.30 H code = 2214) eGFR (2020 CKD-EPI) 35 >60 L (test code = 79567) ML/MIN/1.73 CALC BUN/CREAT (test 21 RATIO 6-28 code = 2235) SODIUM (test code = 145 MEQ/L 549-559 5938) POTASSIUM (test code 4.7 MEQ/L 3.5-5.4 = 2228) CHLORIDE (test code 107 MEQ/L 95-107 = [...] AST (test code = 18 U/L 9-40 2218) ALT (test code = 40 U/L 5-40 UNLESS OTH ERWISE 2219) INDICATED, ALL TESTING PERFORM ED ATCLINICAL PATH OLOGY LABORATORIES, [facility]. [address] [place] [address] [facility] DIRECTOR: MICHAEL BOLAÑOS M.D. CLIA NUMBER [id number] CAP ACCREDITATION N O. [id number] HEMOGLOBIN [id number] 04:17:53 Test Item Value Reference Range Interpretation Comments HEMOGLOBIN A1c (test 9.7 % 4.2-5.6 H [employer] [employer] code = 90056) ASSOCIATION IDELINES FOR HGB A1C: PREDIABETES/INC REASED [...] LABORATORY C ONSULTATION. CBC W/AUTO DIFF WITH [id number] 02:35:56 Test Item Value Reference Range Interpretation [...] RBCS 0.00 K/UL 0.00-0.11 (test code = 49417) COMP. METABOLIC PANEL (91522)2021-11-07 22:52:27 Test Item Value Reference Range Interpretation Comments NA (test code = 142 mmol/L 135-145 1442541445) K (test code = 5.5 mmol/L 3.5-5.0 H 2533427350) CL (test code = 115 mmol/L 98-108 H 1789788656) CO2 TOTAL (test code = 19 mmol/L 23-31 L 6172538092) AGAP (test code = 2-16 4425749973) BUN (test code = 56 mg/dL 7-23 H 9121921252) GLUCOSE (test code = 53 mg/dL 70-110 L 8940414206) CREATININE (test code = 1.45 mg/dL 0.50-1.04 H 8534789138) TOTAL BILI (test code = 0.6 mg/dL 0.1-1.8 8451239716) CALCIUM (test code = 8.9 mg/dL 8.6-10.6 0877344098) T PROTEIN (test code = 6.3 g/dL 6.3-8.2 2864121337) ALBUMIN (test code = 3.8 g/dL 3.5-5.0 1176192573) ALK PHOS (test code = 74 U/L 34-122 7172305378) ALTv (test code = 40 U/L 5-35 H 1742-6) AST(SGOT) (test code = 32 U/L 13-40 3592076508) eGFR (test code = mL/min/1.73m2 9711236949) JUAN (test code = JUAN) Association of [...] tests). Lab Interpretation Abnormal (test code = 85035-7) General acute hospital WITHOUT [id number] 20:09:26 Test Item Value Reference Range Interpretation Comments WBC (test code = 6690-2) See_Comment [A utomated message] The system [employer] generated this result transmit osman reference range : 4.30 - 11.10 10*3/?L. The reference range was not used to interpret this result as normal/abnormal . RBC (test code = 789-8) See_Comment L [Au tomated message] The system [facility] generated this result transmit osman reference range [...] See_Comment L [Au tomated message] The system [facility] generated this result transmit osman reference range : 166 - 358 10*3/?L. The reference range was not used to interpret this result as normal/abnormal . MPV (test code = 10.6 fL 9.5-12.9 94189-0) RDW-CV (test code = 11.9 % 12.0-15.5 L 788-0) RDW-SD (test code = 41.6 fL 39.0-49.9 50699-0) NRBC x10^3 (test code = <0.01 See_Comment [Au tomated message] 6863022862) The system [facility] generated this result transmit osman reference range : 10*3/?L. The reference range was not used to interpret this result as normal/abnormal . NRBC/100 WBC (test code See_Comment [Au tomated message] = 8614717347) The system [facility] generated this result transmit osman reference range : 0.0 - 10.0 /100 WBC s. The reference r marshal was not used to interpret this result as normal/abnormal . IPF % (test code = 8016041108) Lab Interpretation (test Abnormal code = 88329-6) [facility] [id number] 10:13:00 Test Item Value Reference Range Interpretation Comments GLUCOSE BEDSIDE TESTING (test code 205 MG/DL 60-99 H = GLUBED) GLUCOSE BEDSIDE [id number] 08:55:00 Test Item Value Reference Range Interpretation Comments GLUCOSE BEDSIDE TESTING (test code 198 MG/DL 60-99 H = GLUBED) GLUCOSE BEDSIDE [id number] 04:28:00 Test Item Value Reference Range Interpretation Comments GLUCOSE BEDSIDE TESTING (test code 202 MG/DL 60-99 H = GLUBED) GLUCOSE BEDSIDE [id number] 23:36:00 Test Item Value Reference Range Interpretation Comments GLUCOSE BEDSIDE TESTING (test code 194 MG/DL 60-99 H = GLUBED) GLUCOSE BEDSIDE [id number] 19:34:00 Test Item Value Reference Range Interpretation Comments GLUCOSE BEDSIDE TESTING (test code 226 MG/DL 60-99 H = GLUBED) GLUCOSE BEDSIDE [id number] 16:40:00 Test Item Value Reference Range Interpretation Comments GLUCOSE BEDSIDE TESTING (test code 239 MG/DL 60-99 H = GLUBED) GLUCOSE BEDSIDE [id number] 13:41:00 Test Item Value Reference Range Interpretation Comments GLUCOSE BEDSIDE TESTING (test code 220 MG/DL 60-99 H = GLUBED) GLUCOSE BEDSIDE [id number] 11:47:00 Test Item Value Reference Range Interpretation Comments GLUCOSE BEDSIDE TESTING (test code 275 MG/DL 60-99 H = GLUBED) GLUCOSE BEDSIDE [id number] 09:28:00 Test Item Value Reference Range Interpretation Comments GLUCOSE BEDSIDE TESTING (test code 285 MG/DL 60-99 H = GLUBED) GLUCOSE BEDSIDE [id number] 06:09:00 Test Item Value Reference Range Interpretation Comments GLUCOSE BEDSIDE TESTING (test code 237 MG/DL 60-99 H = GLUBED) GLUCOSE BEDSIDE [id number] 20:14:00 Test Item Value Reference Range Interpretation Comments GLUCOSE BEDSIDE TESTING (test code 261 MG/DL 60-99 H = GLUBED) GLUCOSE BEDSIDE [id number] 13:10:00 Test Item Value Reference Range Interpretation Comments GLUCOSE BEDSIDE TESTING (test code 201 MG/DL 60-99 H = GLUBED) GLUCOSE BEDSIDE [id number] 08:39:00 Test Item Value Reference Range Interpretation Comments GLUCOSE BEDSIDE TESTING (test code 252 MG/DL 60-99 H = GLUBED) - XR CHEST [id number] 07:48:00 Patient Name: RUTH ANN MONTEJO Unit No: [id number] EXAMS: CPT CODE: [id number] XR CHEST 1V 63014 EXAM: Chest x-ray, 1 view Dictation location: [...] previous CABG. 3. Large right apical bulla. [id number] Reported and signed by: Mika Draper MD CC: Radha Salinas MD; Humberto Carter; Caridad ASHBY Technologist: Brody Dillon, RT(R) Transcrpt Date/Tm/Trnsp: 05/29/2020 (0748) t.SDR.ZS4Dnhe Print D/T: S: 05/29/2020 (0751) [facility] NAME: RUTH ANN MONTEJO [address] PHYS: [place] [address] : 1945 AGE: 74 SEX: F LOC: Z.SI12 A PHONE #: [phone] EXAM DATE: 05/29/2020 STATUS: ADM IN FAX #: [phone] RADIOLOGY NO: PAGE 1 Signed ReportCBC W/O [id number] 06:18:00 Test Item Value Reference Range Interpretation [...] = 0.00 K/mm3 0.0-0.1 N NRBC#) WBC [id number] 06:18:00 Test Item Value Reference Range Interpretation [...] code = NORMAL NORMAL PLTMORPH) BASIC METABOLIC [id number] 05:11:00 Test Item Value Reference Range Interpretation [...] code = 7.5 MG/DL 8.4-10.2 L CA) [id number] 05:11:00 Test Item Value Reference Range Interpretation Comments MAGNESIUM (test code = MAG) 2.3 MG/DL 1.6-2.3 BASIC METABOLIC [id number] 05:00:00 Test Item Value Reference Range Interpretation [...] CALCIUM (test code = MG/DL 8.7-9.7 CA) [id number] 05:00:00 Test Item Value Reference Range Interpretation Comments MAGNESIUM (test code = MAG) MG/DL 1.6-2.3 BASIC METABOLIC [id number] 04:57:00 Test Item Value Reference Range Interpretation [...] CALCIUM (test code = CA) MG/DL 8.7-9.7 [id number] 04:57:00 Test Item Value Reference Range Interpretation Comments MAGNESIUM (test code = MAG) MG/DL 1.6-2.3 CBC W/O [id number] 04:44:00 Test Item Value Reference Range Interpretation [...] = 0.00 K/mm3 0.0-0.1 N NRBC#) WBC [id number] 04:44:00 Test Item Value Reference Range Interpretation Comments RBC MORPHOLOGY REQUIRED (test code = RBCM) TOTAL CELLS COUNTED (test code = TCC) #CELLS SEGMENTED NEUTROPHILS (test code = % 36.2-73.8 SEG) LYMPHOCYTE (test code = LYMPH) % 12.9-45.1 MONOCYTE (test code = MON) % 0-11 PLATELET ESTIMATE (test code = ADEQUATE PLTEST) PLATELET MORPHOLOGY (test code = NORMAL PLTMORPH) CBC W/AUTO [id number] 04:44:00 Test Item Value Reference Range Interpretation [...] = 0.00 K/mm3 0.0-0.1 N NRBC#) WBC [id number] 04:44:00 Test Item Value Reference Range Interpretation Comments RBC MORPHOLOGY REQUIRED (test code = RBCM) TOTAL CELLS COUNTED (test code = TCC) #CELLS SEGMENTED NEUTROPHILS (test code = % 36.2-73.8 SEG) LYMPHOCYTE (test code = LYMPH) % 12.9-45.1 MONOCYTE (test code = MON) % 0-11 PLATELET ESTIMATE (test code = ADEQUATE PLTEST) PLATELET MORPHOLOGY (test code = NORMAL PLTMORPH) GLUCOSE BEDSIDE [id number] 01:46:00 Test Item Value Reference Range Interpretation Comments GLUCOSE BEDSIDE TESTING (test code 255 MG/DL 60-99 H = GLUBED) GLUCOSE BEDSIDE [id number] 20:02:00 Test Item Value Reference Range Interpretation Comments GLUCOSE BEDSIDE TESTING (test code 240 MG/DL 60-99 H = GLUBED) GLUCOSE BEDSIDE [id number] 17:30:00 Test Item Value Reference Range Interpretation Comments GLUCOSE BEDSIDE TESTING (test code 246 MG/DL 60-99 H = GLUBED) [id number] 15:31:00 Test Item Value Reference Range Interpretation Comments POTASSIUM (test code = K) 4.7 MMOL/L 3.5-5.1 N UNABLE TO DRAW BLOOD, REASON: CBNNOTIFIED PATIENT CARE STAFF: SEAMUS 05/28/20 AT 1508 BY Migdalia Wallace [id number] 15:22:00 Test Item Value Reference Range Interpretation Comments HEMOGLOBIN (test code = HGB) 8.1 G/DL 11.2-14.9 L UNABLE TO DRAW BLOOD, REASON: CBNNOTIFIED PATIENT CARE STAFF: SEAMUS 05/28/20 AT 1508 BY Migdalia Wallace AnGLUCOSE BEDSIDE [id number] 12:24:00 Test Item Value Reference Range Interpretation Comments GLUCOSE BEDSIDE TESTING (test code 293 MG/DL 60-99 H = GLUBED) HGB [id number] 08:21:00 Test Item Value Reference Range Interpretation Comments HEMOGLOBIN (test code = HGB) 7.4 G/DL 11.2-14.9 L HEMATOCRIT (test code = HCT) 23.0 % 33.2-43.5 L CBC W/O [id number] 08:17:00 Test Item Value Reference Range Interpretation [...] = 0.00 K/mm3 0.0-0.1 N NRBC#) WBC [id number] 08:17:00 Test Item Value Reference Range Interpretation [...] code = NORMAL NORMAL PLTMORPH) GLUCOSE BEDSIDE [id number] 07:31:00 Test Item Value Reference Range Interpretation Comments GLUCOSE BEDSIDE TESTING (test code 279 MG/DL 60-99 H = GLUBED) GLUCOSE BEDSIDE [id number] 07:07:00 Test Item Value Reference Range Interpretation Comments GLUCOSE BEDSIDE TESTING (test code 222 MG/DL 60-99 H = GLUBED) BASIC METABOLIC [id number] 06:39:00 Test Item Value Reference Range Interpretation [...] code = 7.8 MG/DL 8.4-10.2 L CA) [id number] 06:39:00 Test Item Value Reference Range Interpretation Comments MAGNESIUM (test code = MAG) 1.6 MG/DL 1.6-2.3 N BASIC METABOLIC [id number] 06:33:00 Test Item Value Reference Range Interpretation [...] CALCIUM (test code = CA) MG/DL 8.7-9.7 [id number] 06:33:00 Test Item Value Reference Range Interpretation Comments MAGNESIUM (test code = MAG) MG/DL 1.6-2.3 CBC W/O [id number] 06:18:00 Test Item Value Reference Range Interpretation [...] = 0.00 K/mm3 0.0-0.1 N NRBC#) WBC [id number] 06:18:00 Test Item Value Reference Range Interpretation Comments RBC MORPHOLOGY REQUIRED (test code = RBCM) TOTAL CELLS COUNTED (test code = TCC) #CELLS SEGMENTED NEUTROPHILS (test code = % 36.2-73.8 SEG) LYMPHOCYTE (test code = LYMPH) % 12.9-45.1 MONOCYTE (test code = MON) % 0-11 PLATELET ESTIMATE (test code = ADEQUATE PLTEST) PLATELET MORPHOLOGY (test code = NORMAL PLTMORPH) CBC W/AUTO [id number] 06:18:00 Test Item Value Reference Range Interpretation [...] = 0.00 K/mm3 0.0-0.1 N NRBC#) WBC [id number] 06:18:00 Test Item Value Reference Range Interpretation Comments RBC MORPHOLOGY REQUIRED (test code = RBCM) TOTAL CELLS COUNTED (test code = TCC) #CELLS SEGMENTED NEUTROPHILS (test code = % 36.2-73.8 SEG) LYMPHOCYTE (test code = LYMPH) % 12.9-45.1 MONOCYTE (test code = MON) % 0-11 PLATELET ESTIMATE (test code = ADEQUATE PLTEST) PLATELET MORPHOLOGY (test code = NORMAL PLTMORPH) - XR CHEST [id number] 05:24:00 Patient Name: RUTH ANN MONTEJO Unit No: [id number] EXAMS: CPT CODE: [id number] XR CHEST 1V 70254 EXAMINATION: - XR CHEST 1V LOCATION: H61 [...] by: Adrianna Carrasquillo MD CC: Radha Salinas MD;Humberto Carter; Caridad ASHBY Technologist: Brody Dillon, RT(R) Transcrpt Date/Tm/Trnsp:05/28/2020 (523) t.SDR.TH15 Orig Print D/T: S: 05/28/2020 (05) [facility] NAME: SIS MONTEJO [id number] PHYS: [place] [address] : 1945 AGE: 74 SEX: F LOC: Z.SI12 A PHONE #: [phone] EXAM DATE: 05/28/2020 STATUS: ADM IN FAX #: [phone] RADIOLOGY NO: PAGE 1 Signed ReportBASIC METABOLIC [id number] 01:07:00 Test Item Value Reference Range Interpretation [...] 7.5 MG/DL 8.4-10.2 L CA) BASIC METABOLIC [id number] 00:55:00 Test Item Value Reference Range Interpretation [...] code = MG/DL 8.7-9.7 CA) BASIC METABOLIC [id number] 00:53:00 Test Item Value Reference Range Interpretation [...] CALCIUM (test code = CA) MG/DL 8.7-9.7 [id number] 00:03:00 Test Item Value Reference Range Interpretation Comments HEMOGLOBIN (test code = HGB) 8.2 G/DL 11.2-14.9 L BASIC METABOLIC [id number] 19:38:00 Test Item Value Reference Range Interpretation [...] 7.8 MG/DL 8.4-10.2 L CA) BASIC METABOLIC [id number] 19:37:00 Test Item Value Reference Range Interpretation [...] code = MG/DL 8.7-9.7 CA) BASIC METABOLIC [id number] 19:35:00 Test Item Value Reference Range Interpretation [...] code = CA) MG/DL 8.7-9.7 BASIC METABOLIC [id number] 19:34:00 Test Item Value Reference Range Interpretation [...] CALCIUM (test code = CA) MG/DL 8.7-9.7 [id number] 17:02:00 Test Item Value Reference Range Interpretation Comments ACT-ISTAT (test code = ACTI) 136 SEC 74-137 N ARTERIAL BLOOD [id number] 16:23:00 Test Item Value Reference Range Interpretation [...] = 40 % COHBGFFIO2) - XR CHEST [id number] 16:20:00 Patient Name: RUTH ANN MONTEJO Unit No: [id number] EXAMS: CPT CODE: [id number] XR CHEST 1V 61358 EXAM: - XR CHEST 1V 05/27/2020 3:49 [...] Hadley MD CC: Radha Salinas MD; Caridad Salinas Technologist: Jarocho Snell, (RT) (R) Transcrpt Date/Tm/Trnsp: 05/27/2020 (1620) [facility].SDR.CP11 [facility] 05/27/2020 (1103) [facility] NAME: RUTH ANN MONTEJO [address] PHYS: [place] [address] : 1945 AGE: 74 SEX: F LOC: Z.SI12 A PHONE #: [phone] EXAM DATE: 05/27/2020 STATUS: ADM IN FAX #: [phone] RADIOLOGY NO: PAGE 1 Signed [id number] 15:07:00 Test Item Value Reference Range Interpretation Comments ACT-ISTAT (test code = ACTI) 257 SEC 74-137 H PROTHROMBIN [id number] 14:54:00 Test Item Value Reference Range Interpretation [...] myocar dial infarction. 2.0 - 3.0 3. Boat Person al prosthesis hear t valves, recurre nt systemic emboli sm. 3.0 - 4.5 BASIC METABOLIC [id number] 14:49:00 Test Item Value Reference Range Interpretation Comments SODIUM (test code = 137 MMOL/L 137-145 N NA) POTASSIUM (test code = 6.3 MMOL/L 3.5-5.1 TOBIAS Jimenez TO Justina STEARNS& Zacarias) READBACK ON AT 1449 BY Lily Quintanilla [...] 7.0 MG/DL 8.4-10.2 L CA) BASIC METABOLIC [id number] 14:47:00 Test Item Value Reference Range Interpretation [...] 7.0 MG/DL 8.4-10.2 L CA) BASIC METABOLIC [id number] 14:46:00 Test Item Value Reference Range Interpretation [...] code = MG/DL 8.7-9.7 CA) BASIC METABOLIC [id number] 14:46:00 Test Item Value Reference Range Interpretation [...] code = MG/DL 8.7-9.7 CA) CBC W/AUTO [id number] 14:31:00 Test Item Value Reference Range Interpretation [...] 0.00 K/mm3 0.0-0.1 N NRBC#) CBC W/AUTO [id number] 13:47:00 Test Item Value Reference Range Interpretation [...] K/mm3 0.0-0.1 N code = NRBC#) DIFFERENTIAL [id number] 13:47:00 Test Item Value Reference Range Interpretation Comments RBC MORPHOLOGY REQUIRED (test code = NORMAL RBCM) PLATELET ESTIMATE (test code = ADEQUATE ADEQUATE PLTEST) PLATELET MORPHOLOGY (test code = NORMAL NORMAL PLTMORPH) PROTHROMBIN [id number] 13:24:00 Test Item Value Reference Range Interpretation [...] myocar dial infarction. 2.0 - 3.0 3. Boat Person al prosthesis hear t valves, recurre nt systemic emboli sm. 3.0 - 4.5 UNKNOWN INTERFERENCE. PLEASE RECOLLECT IF RESULT IS NEEDED.COMPREHENSIVE METABOLIC [id number] 12:24:00 Test Item Value Reference Range Interpretation [...] N (test code = ALKP) COMPREHENSIVE METABOLIC [id number] 12:22:00 Test Item Value Reference Range Interpretation [...] N (test code = ALKP) COMPREHENSIVE METABOLIC [id number] 12:20:00 Test Item Value Reference Range Interpretation [...] code = UNITS/L 38-126 ALKP) COMPREHENSIVE METABOLIC [id number] 12:19:00 Test Item Value Reference Range Interpretation [...] code = UNITS/L 38-126 ALKP) CBC W/AUTO [id number] 12:19:00 Test Item Value Reference Range Interpretation [...] K/mm3 0.0-0.1 N code = NRBC#) DIFFERENTIAL [id number] 12:19:00 Test Item Value Reference Range Interpretation Comments RBC MORPHOLOGY REQUIRED (test code = RBCM) PLATELET ESTIMATE (test code = PLTEST) ADEQUATE PLATELET MORPHOLOGY (test code = NORMAL PLTMORPH) CBC W/AUTO [id number] 12:19:00 Test Item Value Reference Range Interpretation [...] K/mm3 0.0-0.1 N code = NRBC#) DIFFERENTIAL [id number] 12:19:00 Test Item Value Reference Range Interpretation Comments RBC MORPHOLOGY REQUIRED (test code = RBCM) PLATELET ESTIMATE (test code = PLTEST) ADEQUATE PLATELET MORPHOLOGY (test code = NORMAL PLTMORPH) BASIC METABOLIC [id number] 07:56:00 Test Item Value Reference Range Interpretation [...] 0-189 mg/dL VERY HIGH.........>/ = 190 mg/dL [id number] 07:56:00 Test Item Value Reference Range Interpretation Comments MAGNESIUM (test code = MAG) 1.8 MG/DL 1.6-2.3 N BASIC METABOLIC [id number] 07:54:00 Test Item Value Reference Range Interpretation [...] LDL (test MG/DL 0-99 code = LDL) [id number] 07:54:00 Test Item Value Reference Range Interpretation Comments MAGNESIUM (test code = MAG) 1.8 MG/DL 1.6-2.3 N PROTHROMBIN [id number] 07:49:00 Test Item Value Reference Range Interpretation [...] myocar dial infarction. 2.0 - 3.0 3. Boat Person al prosthesis hear t valves, recurre nt systemic emboli sm. 3.0 - 4.5 PTT [id number] 07:49:00 Test Item Value Reference Range Interpretation Comments PTT ACTIVATED (test code = APTT) 30.8 SECONDS 25.1-36.5 N BASIC METABOLIC [id number] 07:44:00 Test Item Value Reference Range Interpretation [...] LDL (test code = LDL) MG/DL 0-99 [id number] 07:44:00 Test Item Value Reference Range Interpretation Comments MAGNESIUM (test code = MAG) MG/DL 1.6-2.3 BASIC METABOLIC [id number] 07:42:00 Test Item Value Reference Range Interpretation [...] LDL (test code = LDL) MG/DL 0-99 [id number] 07:42:00 Test Item Value Reference Range Interpretation Comments MAGNESIUM (test code = MAG) MG/DL 1.6-2.3 BASIC METABOLIC [id number] 07:41:00 Test Item Value Reference Range Interpretation [...] LDL (test code = LDL) MG/DL 0-99 [id number] 07:41:00 Test Item Value Reference Range Interpretation Comments MAGNESIUM (test code = MAG) MG/DL 1.6-2.3 CBC W/AUTO [id number] 07:39:00 Test Item Value Reference Range Interpretation [...] 0.0-0.1 N NRBC#) COVID 19 Asymptomatic IH [id number] 06:05:00 Test Item Value Reference Range Interpretation [...] amount of virus (antigen) in the sample." [id number] 13:38:00 Test Item Value Reference Range Interpretation Comments ACT-ISTAT (test code = ACTI) 241 SEC 74-137 H [id number] 13:38:00 Test Item Value Reference Range Interpretation Comments ACT-ISTAT (test code = ACTI) 224 SEC 74-137 H PROTHROMBIN [id number] 10:02:00 Test Item Value Reference Range Interpretation [...] myocar dial infarction. 2.0 - 3.0 3. Boat Person al prosthesis hear t valves, recurre nt systemic emboli sm. 3.0 - 4.5 PTT [id number] 10:02:00 Test Item Value Reference Range Interpretation Comments PTT ACTIVATED (test code = APTT) 25.1 SECONDS 22.0-33.0 N BASIC METABOLIC [id number] 09:48:00 Test Item Value Reference Range Interpretation [...] 0-189 mg/dL VERY HIGH.........>/ = 190 mg/dL [id number] 09:48:00 Test Item Value Reference Range Interpretation Comments MAGNESIUM (test code = MAG) 1.8 MG/DL 1.6-2.3 N CBC W/AUTO [id number] 09:23:00 Test Item Value Reference Range Interpretation [...] code = 0.00 K/mm3 0.0-0.1 N NRBC#) [id number] 12:09:00 Test Item Value Reference Range Interpretation Comments AUREA (test code = ACTI) 213 SEC 74-137 [...] VERY HIGH.........>/ = 190 mg/dL BASIC METABOLIC [id number] 07:52:00 Test Item Value Reference Range Interpretation [...] code = 9.4 MG/DL 8.4-10.2 N CA) [id number] 07:52:00 Test Item Value Reference Range Interpretation [...] (test MG/DL 0-99 code = LDL) PROTHROMBIN [id number] 07:46:00 Test Item Value Reference Range Interpretation [...] myocar dial infarction. 2.0 - 3.0 3. Boat Person al prosthesis hear t valves, recurre nt systemic emboli sm. 3.0 - 4.5 Comments to Fine Arts Instructor: WILL BRING TO THE LABPTT [id number] 07:46:00 Test Item Value Reference Range Interpretation Comments PTT ACTIVATED (test code = APTT) 25.1 SECONDS 22.0-33.0 N Comments to Fine Arts Instructor: WILL BRING TO THE LABCBC W/AUTO [id number] 07:27:00 Test Item Value Reference Range Interpretation [...] Notes Date/Time Note Provider Source 2020-06-10 07:05:00-00:00 [facility] ([facility] Hospitalist Discharge Summary REPORT#:[id number] REPORT STATUS: Signed DATE:06/10/20 TIME: 704 PATIENT: RUTH ANN MONTEJO UNIT #: [id number] ROOM/BED: [address] : 44 AGE: 74 SEX: F ATTEND: Александр Almazan MD ADM AUTHOR: Kari Almazan MD * ALL edits or amendments must be made on the AttorneyFee/computer document * PCP PCP PCP: PCP: Alyson Provider Discharge to: home General Information Date [...] a 74-year-old female who is seen in [facility] intensive care unit after surgery. She is [...] to have severe PAD bilaterally; while performing ENGRAVER AUTOMATIC of the right S FA in the [...] stable continue with PT/OT 05/30- doing fine. michael dc'ed. has not voided yet. walked with PT earlier. transferred out of the ICU to [facility] 05/31- doing fine. cleared by [facility] for [...] Extremities: no clubbing, no cyanosis, no edema Neuro/DISK AND TAPE MACHINE TENDER: oriented X 3, normal speech, generali zed weakness; no focal motor deficits. Psychiatry: easily irritable and agitated. Quality Current Medications Current medication review: I attest that the foregoing medication list in t he medical record is true, accurate, and complete to the best of my knowled ge. Advanced Care Plan 65 or Older Discussion included: code status Electronically Signed by Kari Almazan MD on 02/22 at 0718 RPT #:[id number] END OF REPORT 2020-05-31 06:29:00-00:00 [facility] ([facility]) Cardiology Progress Note REPORT#:[id number] REPORT STATUS: Signed DATE:05/31/20 TIME: 628 PATIENT: RUTH ANN MONTEJO UNIT #: [id number] ROOM/BED: [address] : 44 AGE: 74 SEX: F ATTEND: Александр Almazan MD ADM AUTHOR: Olegario Rodriguez MD * ALL edits or amendments must be made on the AttorneyFee/computer document * Subjective Chief Complaint: PVD Patient reports: No: chest pain, palpitations, shortness of breat h. Objective General VS/I O: 24 hour I O ending at 0700: 05/31 0705/30 1900 Intake Total 450 150 Output Total Balance 450 150 Intake, Oral 450 150 Number 1 Incontinent Voids Number Voids 2 Vital Signs: Date Time Temp Pulse Resp B/P B/P Pulse O2 O2 Flow FiO2 Mean Ox Delivery Rate 05/31 0419 [...] soft Lower extremity: LE assessment: no edema Neuro/DISK AND TAPE MACHINE TENDER: alert, oriented X 3, CN II-XII intact [...] DxA P Notes: IMP: Severe PVD s/p ENGRAVER AUTOMATIC Retroperitoneal hematoma s/p hematoma evacuation - recovering well. s/p oversewing of internal iliac artery at site of oozing Chronic systolic heart failure - LVEF 40-44%. Anemia - s/p transfusion. PLAN: Continue current medical rx. PT/OT at 1154 RPT #:[id number] END OF REPORT 2020-05-31 05:17:00-00:00 [id number] [place] [address] PATIENT NAME: RUTH ANN MONTEJO ADMIT ANA E: 05/27/20 ACCOUNT NO: [id number] ROOM NO: Z.358 AGE: 74 REPORT TYPE: ELECTROCARDIOGRAM SEX: F ADMITTING PHYSICIAN:Kari Almazan MD ATTENDING PHYSICIAN:Kari Almazan MD Order: [id number] Test Reason : CAD Test Date/Time Stamp: [...] NAME: RUTH ANN MONTEJO 2020-05-30 15:57:00-00:00 [facility] ([facility]) Hospitalist Progress Note REPORT#:[id number] REPORT STATUS: Signed DATE:05/30/20 TIME: 1557 PATIENT: RUTH ANN MONTEJO UNIT #: [id number] ROOM/BED: [address] : 44 AGE: 74 SEX: F ATTEND: Александр Almazan MD ADM AUTHOR: Kari Almazan MD * ALL edits or amendments must be made on the el mysportgroupronic/computer document * Subjective Chief Complaint: more awake [...] 05/30 1100 92 15 129/60 86 96 / 1000 91 15 150/65 93 95 / 0900 93 161/68 98 96 / 0800 97.8 / 0800 93 13 158/67 96 97 05/30 0738 Room air 21 05/30 0700 94 9 142/55 79 96 / 0600 97 15 137/63 91 97 05/30 0500 93 17 142/65 93 98 / 0400 92 14 127/60 86 98 05/30 0300 93 16 126/58 83 96 / 0200 92 19 123/55 79 96 / 0100 94 15 118/58 83 95 05/30 [...] Extremities: no clubbing, no cyanosis, no edema Neuro/DISK AND TAPE MACHINE TENDER: oriented X 3, normal speech, generali zed weakness; no focal motor deficits. Psychiatry: easily irritable and agitated. Results Findings/Data: Laboratory Tests 05/30 05/30 05/30 05/29 05/29 1321 0858 0514 2011 1620 Chemistry POC Glucose (60 - 99 [...] earlier. transferred out of the ICU to [facility] Quality Current Medications Current medication review: I attest that the foregoing medication list in [facility] medical record is true, accurate, and complete to the best of my knowled ge. Electronically Signed by Kari Almazan MD on 02/22 at 0717 RPT #:[id number] END OF REPORT 2020-05-30 14:14:00-00:00 [facility] ([facility]) Cardiology Progress Note REPORT#:[id number] REPORT STATUS: Signed DATE:05/30/20 TIME: 1414 PATIENT: RUTH ANN MONTEJO UNIT #: [id number] [facility] AGE: 74 SEX: F ATTEND: Александр Almazan MD ADM AUTHOR: Olegario Rodriguez MD * ALL edits or amendments must be made on the el Lumicity/computer document * Subjective Chief Complaint: PVD Patient [...] soft Lower extremity: LE assessment: no edema Neuro/DISK AND TAPE MACHINE TENDER: alert, oriented X 3, CN II-XII intact Skin: dry, intact Psychiatry: normal affect, normal judgment/insig ht, normal mood Results Findings/Data: Laboratory Tests 05/30 05/30 05/30 05/29 05/29 1321 0858 0514 20100 Chemistry POC Glucose (60 - 99 MG/DL) 220 H 285 H 237 H 2 61 H 275 H Diagnosis, Assessment Plan Free Text DxA P Notes Free Text DxA P Notes: IMP: Severe PVD s/p ENGRAVER AUTOMATIC Retroperitoneal hematoma s/p hematoma evacuation s/p oversewing of internal iliac artery at site of oozing Chronic systolic heart failure - LVEF 40-44%. Anemia - s/p transfusion. PLAN: Continue current medical rx. PT/OT at 1154 RPT #:[id number] END OF REPORT 2020-05-30 08:12:00-00:00 [id number] [address] PATIENT NAME: RUTH ANN MONTEJO ADMIT ANA E: 05/27/20 ACCOUNT NO: [id number] ROOM NO: [facility] AGE: 74 REPORT TYPE: ELECTROCARDIOGRAM SEX: F ADMITTING PHYSICIAN:Kari Almazna MD ATTENDING PHYSICIAN:Kari Almazan MD Order: [id number] Test Reason : CAD Test Date/Time Stamp: [...] PATIENT NAME: RUTH ANN MONTEJO 2020-05-30 05:54:00-00:00 [facility] ([facility]) Cardiology Progress Note REPORT#:[id number] REPORT STATUS: Signed DATE:05/30/20 TIME: 553 PATIENT: RUTH ANN MONTEJO UNIT #: [id number] ROOM/BED: [address] : 44 AGE: 74 SEX: F ATTEND: Александр Almazan MD ADM AUTHOR: Olegario Rodriguez MD * ALL edits or amendments must be made on the AttorneyFee/computer document * Subjective Chief Complaint: PVD Patient reports: No: chest pain, palpitations, shortness of breat h. Objective General VS/I O: 24 hour I O ending at 0700: 05/30 0700 05/29 1900 Intake Total Output Total 850 Balance -850 Output, Urine 850 Vital Signs: Date Time Temp Pulse Resp B/P B/P Pulse O2 O2 Flow FiO2 Mean Ox Delivery Rate 05/30 0100 [...] soft Lower extremity: LE assessment: no edema Neuro/DISK AND TAPE MACHINE TENDER: alert, oriented X 3, CN II-XII intact Skin: dry, intact Psychiatry: normal affect, normal judgment/insig ht, normal mood Results Findings/Data: Laboratory Tests 05/29 1252 0835 Chemistry POC Glucose (60 - 99 MG/DL) 261 H 201 H 252 H Diagnosis, Assessment Plan Free Text DxA P Notes Free Text DxA P Notes: IMP: Severe PVD s/p ENGRAVER AUTOMATIC Retroperitoneal hematoma s/p hematoma evacuation s/p oversewing of internal iliac artery at site of oozing Chronic systolic heart failure - LVEF 40-44%. Anemia - s/p transfusion. PLAN: Continue current medical rx. PT/OT at 1154 RPT #:[id number] END OF REPORT 2020-05-29 20:03:00-00:00 [facility] ([facility]) Hospitalist Progress Note REPORT#:[id number] REPORT STATUS: Signed DATE:05/29/20 TIME: 2002 PATIENT: RUTH ANN MONTEJO UNIT #: [id number] [facility] AGE: 74 SEX: F ATTEND: Александр Almazan MD ADM AUTHOR: Kari Almazan MD * ALL edits or amendments must be made on the AttorneyFee/Abcellute document * Subjective Chief Complaint: feeling cold [...] 98 05/29 1414 95 12 87/41 59 / 1300 102 17 95/47 / 1245 99 17 105/50 72 96 / 1230 99 16 98 05/29 1215 101 17 99 05/29 1209 101 17 100 05/29 1145 102 98 05/29 1130 97 05/29 1115 103 16 97 05/29 1100 97 16 111/53 76 95 / 1054 28 / 1000 96 16 112/52 75 95 / 0900 98 16 134/61 88 95 /24 0800 96 15 113/52 75 96 / 0700 98.7 05/29 0700 98 15 122/57 82 96 / 0436 99.4 05/29 0400 97 16 106/49 70 95 / 0345 96 16 95 / 0330 97 16 95 / 0315 99 17 95 / 0300 97 13 100/47 68 95 / 0245 97 16 94 / 0230 96 16 94 05/29 0215 96 16 95 08/24 0200 95 16 99/48 69 95 05/29 [...] 100 14 95 05/28 2108 99 Nasal 2.596085 28 cannula 05/28 2100 101 15 110/53 [...] Extremities: no clubbing, no cyanosis, no edema Neuro/DISK AND TAPE MACHINE TENDER: oriented X 3, normal speech, generali zed [...] (Auto) (1.0 - 3.8 K/mm3) 0.81 L Swain # (Auto) (0.1 - 0.8 K/mm3) 2.02 [...] Impressions: RADIOLOGY - XR CHEST 1V 05/29 0190 Report Impression - Status: SIGNED Entered: 05/29/2020 8449 IMPRESSION: 1. Interval placement of an endotracheal [...] attest that the foregoing medication list in [facility] medical record is true, accurate, and complete to the best of my knowled ge. Electronically Signed by Kari Almazan MD on 02/22 at 0717 RPT #:[id number] END OF REPORT 2020-05-29 10:09:00-00:00 [facility] ([facility]) Cardiology Progress Note REPORT#:[id number] REPORT STATUS: Signed DATE:05/29/20 TIME: 1009 PATIENT: RUTH ANN MONTEJO UNIT #: [id number] ROOM/BED: [address] : 44 AGE: 74 SEX: F ATTEND: Humberto Carter MD ADM AUTHOR: Olegario Rodriguez MD * ALL edits or amendments must be made on the el mysportgroupronic/computer document * Subjective Chief Complaint: PVD Patient reports: Yes: abdominal pain. No: chest pain, palpitation s, shortness of breath. Objective General VS/I O: 24 hour I O ending at 0700: 05/29 0705/28 1900 Intake Total 900.00 1081.61 Output Total [...] 100 14 95 05/28 2108 99 Nasal 2.744520 28 cannula 05/28 2100 101 15 110/53 76 97 05/28 2045 102 16 98 05/28 2030 102 14 98 05/28 2024 102 14 94/45 62 98 05/28 2015 102 14 98 05/28 2000 101 15 99 05/28 1950 98.5 05/28 1945 95 15 100 05/28 1930 97 16 98 05/28 1915 94 15 98 05/28 1900 97 99 05/28 1845 99 15 98 05/28 1830 110 15 98 05/28 1817 113 14 99 05/28 1815 98 14 98 05/28 1800 99 14 98 05/28 1749 100 14 08/23 1747 101 108/46 67 100 05/28 1745 99 16 99 05/28 1733 100 15 168/110 133 100 05/28 1730 101 15 100 05/28 1722 106 16 162/110 128 100 05/28 1715 111 31 100 05/28 1645 96 12 100 05/28 1637 98.5 96 13 124/47 100 05/28 1630 96 13 100 05/28 1615 99 14 100 05/28 1602 98.5 102 15 121/47 100 05/28 1601 104 15 88/46 64 100 05/28 1600 103 18 100 05/28 1545 101 [...] 99 14 05/28 1415 103 19 100 05/28 1400 105 15 83/43 58 100 05/28 1345 99 15 100 05/28 1344 100 14 83/42 60 100 05/28 1343 102 14 77/42 57 100 05/28 1331 107 14 87/39 56 100 05/28 1330 108 15 100 05/28 1315 94 15 100 05/28 1300 99 16 81/42 56 100 05/28 1245 108 15 100 05/28 1230 111 [...] Chloride 100 ML Dextrose/Sodium Chloride 1,000 ML .[id number] IV (D C) Nicardipine HCl 25 MG ASDIR PRN IV Sodium Chloride 250 ML Ondansetron HCl 4 MG Q8H PRN PRN IV Physical Exam General appearance: alert, awake, oriented Head/Eyes: atraumatic, normocephalic ENT: moist mucosal membranes Neck: no JVD Cardiovascular: CV assessment: regular rate and rhythm Respiratory: clear to auscultation, no distress Abdomen: soft Lower extremity: LE assessment: no edema Neuro/DISK AND TAPE MACHINE TENDER: alert, oriented X 3, CN II-XII intact [...] (Auto) (1.0 - 3.8 K/mm3) 0.81 L Swain # (Auto) (0.1 - 0.8 K/mm3) 2.02 [...] Impressions: RADIOLOGY - XR CHEST 1V 05/29 0059 Report Impression - Status: SIGNED Entered: 05/29/2020 0751 IMPRESSION: 1. Interval placement of an endotracheal tube, w ith tip 7.8 cm above the lamont. Advancement by 4 cm is suggested for more optimal positioning. No acute abnormalities seen. 2. Unchanged borderline cardiac silhouette enlar gement, with post surgical changes of previous CABG. 3. Large right apical bulla. Impression By: Tracee Draper MD Diagnosis, Assessment Plan Free Text DxA P Notes Free Text DxA P Notes: IMP: Severe PVD s/p ENGRAVER AUTOMATIC Retroperitoneal hematoma s/p hematoma evacuation s/p oversewing of internal iliac artery at site of oozing Chronic systolic heart failure - LVEF 40-44%. Anemia - s/p transfusion. PLAN: Continue current medical rx. Follow H/H closely. at 1240 RPT #:[id number] END OF REPORT 2020-05-29 07:14:00-00:00 [id number] [place] [address] PATIENT NAME: RUTH ANN MONTEJO ADMIT ANA E: 05/27/20 ACCOUNT NO: [id number] ROOM NO: Z.SI12 AGE: 74 REPORT TYPE: ELECTROCARDIOGRAM SEX: F ADMITTING PHYSICIAN:Humberto Carter MD ATTENDING PHYSICIAN:Humberto Carter MD Order: [id number] Test Reason : CAD Test Date/Time Stamp: [...] PATIENT NAME: RUTH ANN MONTEJO 2020-05-28 19:47:00-00:00 [id number] [place] [address] PATIENT NAME: RUTH ANN MONTEJO ADMIT ANA E: 05/27/20 ACCOUNT NO: [id number] ROOM NO: Z.358 AGE: 74 REPORT TYPE: PROGRESS NOTE SEX: F ADMITTING PHYSICIAN:Kari Almazan MD ATTENDING PHYSICIAN:Kari Almazan MD DATE: 05/28/2020 CARDIAC SURGERY SERVICE The patient is seen at the [facility] in the ICU. The patient currently is [...] ogress. Dictated By: Mario Das MD WT: PN:JOSEPH/PEREZ/EVA Conf#: [id number]#: [id number] Authenticated by Mario Das MD On 020 03:37:26 PM at 1537 PATIENT NAME: RUTH ANN MONTEJO 2020-05-28 17:23:00-00:00 [facility] ([facility] Hospitalist Progress Note REPORT#:[id number] REPORT STATUS: Signed DATE:05/28/20 TIME: 1723 PATIENT: RUTH ANN MONTEJO UNIT #: [id number] [address] AGE: 74 SEX: F ATTEND: Humberto Carter MD ADM AUTHOR: Humberto Carter MD * ALL edits or amendments must be made on the AttorneyFee/computer document * Subjective Chief Complaint: Patient seen [...] 99 14 05/28 1415 103 19 100 05/28 1400 105 15 83/43 58 100 05/28 1345 99 15 100 05/28 1343 102 14 77/42 57 100 05/28 1331 107 14 87/39 56 100 05/28 1330 108 15 100 05/28 1315 94 15 100 05/28 1300 99 16 81/42 56 100 05/28 1245 108 15 100 05/28 1230 111 [...] 16 100 05/28 1015 104 15 100 08/23 1014 98.3 102 16 128/43 100 08/23 1000 105 16 91/45 62 100 08/23 0945 103 15 100 08/23 0930 103 15 100 08/23 0915 102 15 100 08/23 0900 99 15 106/49 70 100 08/23 0845 118 16 100 08/23 0830 115 14 100 08/23 0815 114 16 100 08/23 0800 100 Nasal 28 cannula 08/23 0800 116 16 103/49 70 100 08/23 0745 113 16 100 08/23 0730 112 15 100 08/23 0717 Nasal 2.957287 cannula 08/ 0715 115 15 100 08/23 0713 98.3 08/23 0700 117 15 110/52 75 100 08/23 0645 114 15 100 08/23 0630 111 14 100 08/23 0615 109 15 100 08/23 0600 113 15 106/51 74 100 08/23 0545 96 14 100 08/23 0530 96 14 100 08/23 0515 98 15 100 08/23 0500 98 15 105/53 75 100 08/23 0445 96 14 100 08/23 0430 99 15 100 08/23 0415 98 16 100 08/23 0400 98.1 08/23 0400 98 15 107/50 72 100 08/23 0345 99 16 100 08/23 0330 100 15 100 08/23 0315 97 15 100 08/23 0300 96 15 119/51 74 100 08/23 0245 95 17 100 08/23 0230 94 15 100 08/23 0215 92 15 100 08/23 0200 91 16 113/53 76 100 08/23 0145 89 15 100 08/23 0130 89 15 100 08/23 0115 89 14 100 08/23 0100 90 16 116/53 77 100 08/23 0045 91 14 100 08/23 0030 92 13 100 08/23 0015 91 15 100 08/23 0000 98.1 08/23 0000 92 14 112/56 80 100 08/22 2345 91 14 100 08/22 2330 92 14 100 08/22 2315 91 14 100 08/22 2300 92 15 113/56 80 100 08/22 2245 90 18 100 08/22 2230 91 15 100 08/22 2215 89 15 100 08/22 2200 88 14 102/50 72 100 08/22 2145 89 14 100 08/22 2130 91 17 100 05/275 94 20 05/27 2100 86 16 105/45 65 100 05/27 2045 87 15 100 05/27 2030 85 15 100 05/27 2020 85 15 111/46 67 100 05/27 2015 92 14 100 05/27 2000 86 15 100 05/27 1950 Nasal 2.095962 28 cannula 05/27 1945 80 13 100 [...] Chloride 100 ML Dextrose/Sodium Chloride 1,000 ML .[id number] IV (D C) Nicardipine HCl 25 MG [...] Extremities: no clubbing, no cyanosis, no edema Neuro/DISK AND TAPE MACHINE TENDER: oriented X 3, normal speech, generali zed [...] (1.6 - 2.3 MG/DL) 1.6 05/27 05/27 2030 1900 Chemistry Sodium (137 - 145 [...] (Auto) (1.0 - 3.8 K/mm3) 0.50 L Swain # (Auto) (0.1 - 0.8 K/mm3) 1.67 [...] Impressions: RADIOLOGY - XR CHEST 1V 05/28 424 Report Impression - Status: SIGNED Entered: 05/28/2020526 IMPRESSION: No significant interval change. Impression By: [email or web address] - Adrianna Carrasquillo MD Results: labs reviewed, [...] attest that the foregoing medication list in [facility] medical record is true, accurate, and complete to the best of my knowled ge. Electronically Signed by Humberto Carter MD on 05/28 at 1755 RPT #:[id number] END OF REPORT 2020-05-28 09:55:00-00:00 [id number] [facility] [address] [place] [address] PATIENT NAME: RUTH ANN MONTEJO ADMIT ANA E: 05/27/20 ACCOUNT NO: [id number] ROOM NO: Z.SI12 AGE: 74 REPORT TYPE: ECHOCARDIOGRAM SEX: F ADMITTING PHYSICIAN:Humberto Carter MD ATTENDING PHYSICIAN:Humberto Carter MD *[facility]* [address] [id number] Transthoracic Echocardiogram Patient: Ruth Ann Montejo Study Date: 05/28/2020 BP: 110 / 52 Location: [facility] URN: [id number] : 1945 Age: 74 Height: 62 in / 157.5 cm Gender: F Weight: 193 .6 lb / 88 kg BMI/BSA: 35.5 kg/m 2 / 2 m 2 *Ordering Physician: * Radha Salinas MD *Interpreting Physician: * Radha Salinas MD *Hotel Housekeeper: * Denise Jones RDCS, RVT Indications: CAD/CMP. Study data: Transthoracic echocardiogram. Proced ure: Transthoracic echocardiography was performed. Images were obta ined using a [employer] cardiac ultrasound machine. Image quality was adequate. [...] minor ax, 3.0 cm/m 2 ------- Mean grad, S 4.3 mm Hg A4C Peak grad, [...] Peak grad, S 3 mm Hg ------- VT v, ED 1.15 m/sec Mean grad, S 1 mm Hg ------- VT grad, ED 5 mm Hg SV 52 [...] PATIENT NAME: RUTH ANN MONTEJO 2020-05-28 09:08:00-00:00 [facility] ([facility] Cardiology Progress Note REPORT#:[id number] REPORT STATUS: Signed DATE:05/28/20 TIME: 0908 PATIENT: RUTH ANN MONTEJO UNIT #: [id number] ROOM/BED: [address] : 44 AGE: 74 SEX: F ATTEND: Humberto Carter MD ADM AUTHOR: Olegario Rodriguez MD * ALL edits or amendments must be made on the AttorneyFee/Abcellute document * Subjective Chief Complaint: PVD Patient [...] low FiO2 Mean Ox Delivery Rate 05/28 07 Nasal 2.529903 cannula 05/28 07 115 15 100 05/28 0713 98.3 05/28 07 117 15 110/52 75 100 05/28 0645 114 15 100 05/28 0630 111 14 100 05/28 0615 109 15 100 05/28 0600 113 15 106/51 74 100 05/28 0545 96 14 100 08/23 0530 96 14 100 08/23 0515 98 15 100 08/23 0500 98 15 105/53 75 100 08/23 0445 96 14 100 08/23 0430 99 15 100 08/23 0415 98 16 100 08/23 0400 98.1 08/23 0400 98 15 107/50 72 100 08/23 0345 99 16 100 08/23 0330 100 15 100 08/23 0315 97 15 100 08/23 0300 96 15 119/51 74 100 08/23 0245 95 17 100 08/23 0230 94 15 100 08/23 0215 92 15 100 08/23 0200 91 16 113/53 76 100 08/23 0145 89 15 100 08/23 0130 89 15 100 08/23 0115 89 14 100 08/23 0100 90 16 116/53 77 100 08/23 0045 91 14 100 08/23 0030 92 13 100 08/ 0015 91 15 100 08/ 0000 98.1 / 0000 92 14 112/56 80 100 08/ 2345 91 14 100 / 2330 92 14 100 08/22 2315 91 14 100 08/22 2300 92 15 113/56 80 100 08/22 2245 90 18 100 08/22 2230 91 15 100 08/22 2215 89 15 100 08/22 2200 88 14 102/50 72 100 08/22 2145 89 14 100 /22 2130 91 17 100 / 2115 94 20 05/27 2100 86 16 105/45 65 100 / 2045 87 15 100 /2029 85 15 100 /2019 85 15 111/46 67 100 05/27 2015 92 14 100 /1999 86 15 100 / 1950 Nasal 2.648345 28 cannula 05/27 1945 80 13 100 / 1940 97.1 05/27 1930 79 15 100 05/27 1915 80 13 100 / 1900 79 14 100 / 1600 Nasal 2.988292 cannula 05/27 1545 98.5 Patient Weight Weight [...] Chloride 100 ML Dextrose/Sodium Chloride 1,000 ML .[id number] IV Nicardipine HCl 25 MG ASDIR PRN [...] soft Lower extremity: LE assessment: no edema Neuro/DISK AND TAPE MACHINE TENDER: alert, oriented X 3, CN II-XII intact [...] PT Patient/Control Mix (9.4 - 12.5 SECONDS) 14 .7 H 21.4 H Activated Coag Time (74 [...] % (Auto) (14 - 44 %) 17.8 Swain % (Auto) (4 - 13 %) 12.5 Eos % (Auto) (0 - 6 %) 0.6 Baso % (Auto) (0 - 2 %) 0.3 Neut # (Auto) (2.0 - 7.6 K/mm3) 5.38 4.49 Lymph # (Auto) (1.0 - 3.8 K/mm3) 0.50 L 1.18 Swain # (Auto) (0.1 - 0.8 K/mm3) 1.67 [...] % (Auto) (14 - 44 %) 35.3 Swain % (Auto) (4 - 13 %) 11.8 Eos % (Auto) (0 - 6 %) 1.6 Baso % (Auto) (0 - 2 %) 0.5 Neut # (Auto) (2.0 - 7.6 K/mm3) 2.19 Lymph # (Auto) (1.0 - 3.8 K/mm3) 1.53 Swain # (Auto) (0.1 - 0.8 K/mm3) 0.51 [...] DxA P Notes: IMP: Severe PVD s/p ENGRAVER AUTOMATIC Retroperitoneal hematoma s/p hematoma evacuation s/p oversewing of internal iliac artery at site of oozing PLAN: Continue current medical rx. Follow H/H closely. at 0935 RPT #:[id number] END OF REPORT 2020-05-28 08:42:00-00:00 [id number] [place] [address] PATIENT NAME: RUTH ANN MONTEJO ADMIT ANA E: 05/27/20 ACCOUNT NO: [id number] ROOM NO: [facility] AGE: 74 REPORT TYPE: ELECTROCARDIOGRAM SEX: F ADMITTING PHYSICIAN:Humberto Carter MD ATTENDING PHYSICIAN:Humberto Carter MD Order: [id number] Test Reason : CAD Test Date/Time Stamp: FriMay 28 2020 08:42:07 Blood Pressure : / mmHG Vent. Rate : 118 BPM Atrial Rate : 120 BPM P-R Int : 136 ms QRS Dur : 090 ms QT Int : 310 ms P-R-T Axes : 000 004 137 degree s QTc Int : 434 ms Sinus tachycardia [...] PATIENT NAME: RUTH ANN MONTEJO 2020-05-27 17:31:00-00:00 [facility] ([facility]) Hospitalist History Physical REPORT#:[id number] REPORT STATUS: Signed DATE:05/27/20 TIME: 1731 PATIENT: RUTH ANN MONTEJO UNIT #: [id number] ROOM/BED: [address] : [address] AGE: 74 SEX: F ATTEND: Humberto Carter MD ADM AUTHOR: Humberto Carter MD * ALL edits or amendments must be made on the AttorneyFee/computer document * History of Present Illness HPI Chief complaint: Intra-abdominal hemorrhage. HPI: Patient is a 74-year-old female who is seen in t intensive care unit after surgery. She is [...] to have severe PAD bilaterally; while performing ENGRAVER AUTOMATIC of the right SFA in the right [...] Mean Ox Delivery Rate 05/27 1600 Nasal 2.925168 cannula 05/27 1545 98.5 Patient Weight Weight [...] Chloride 100 ML Dextrose/Sodium Chloride 1,000 ML .[id number] IV Nicardipine HCl 25 MG ASDIR PRN [...] Extremities: no clubbing, no cyanosis, no edema Neuro/DISK AND TAPE MACHINE TENDER: somnolent but arousable; no facial as symetry. [...] (14 - 44 %) 17.8 35.3 29.8 Swain % (Auto) (4 - 13 %) 12.5 11.8 17.3 H Eos % (Auto) (0 - 6 %) 0.6 1.6 2.7 Baso % (Auto) (0 - 2 %) 0.3 0.5 0.8 Neut # (Auto) (2.0 - 7.6 K/mm3) 4.49 2.19 2.58 Lymph # (Auto) (1.0 - 3.8 K/mm3) 1.18 1.53 1.57 Swain # (Auto) (0.1 - 0.8 K/mm3) 0.83 [...] Report Impression - Status: SIGNED Entered: 05/27/2020 9964 IMPRESSION: No radiographic evidence of a focal infiltrate. Enteric tube and right subclavian line. Impression By: [email or web address] George Hadley MD Results: labs reviewed, chet [...] attest that the foregoing medication list in [facility] medical record is true, accurate, and complete to the best of my knowled ge. Electronically Signed by Humberto Carter MD on 05/27 at 7435 RPT #:[id number] END OF REPORT 2020-05-27 16:32:00-00:00 [id number] [place] [address] PATIENT NAME: RUTH ANN MONTEJO ADMIT ANA E: 05/27/20 ACCOUNT NO: [id number] ROOM NO: Z.SI12 AGE: 74 REPORT TYPE: ELECTROCARDIOGRAM SEX: F ADMITTING PHYSICIAN:Humberto Carter MD ATTENDING PHYSICIAN:Humberto Carter MD Order: [id number] Test Reason : post op Test Date/Time Stamp: [facility] May 27 2020 16:32:50 Blood Pressure : [...] By: Radha Salinas Confirmed by:RADHA LINDSEY at 0261 PATIENT NAME: MONTEJORUTH ANN ORR 2020-05-27 15:50:00-00:00 [facility] ([facility] Brief Op Note REPORT#:[id number] REPORT STATUS: Signed DATE:05/27/20 TIME: 155 PATIENT: RUTH ANN MONTEJO UNIT #: [id number] ROOM/BED: [address] : 44 AGE: 74 SEX: F ATTEND: Александр Almazan MD ADM AUTHOR: Caridad Esteves * ALL edits or amendments must be made on the AttorneyFee/[employer]cell[employer] document * Op/Inv Proc Note - Brief Pre-procedure diagnosis: Bleeding right iliac artery Hematoma right retroperitoneum Post-procedure diagnosis: same as pre procedure dx Procedures performed: Exploration of the right retroperitoneum. Evacua tion of hematoma, Primary Surgeon: Mario Das Poke In(s): DAYANA Norris Anesthesiologist: Dr. Jarred Ortiz CRNA Anesthesia: general anesthesia Findings: See detailed op report Complications: none Estimated blood loss in ml's: 200 cc Specimens removed/altered: hematoma Approach: open Wound class: clean Disposition: ICU, stable at 1643 RPT #:[id number] END OF REPORT 2020-05-27 15:50:00-00:00 [facility] ([facility]) Brief Op Note REPORT#:[id number] REPORT STATUS: Signed DATE:05/27/20 TIME: 155 PATIENT: RUTH ANN MONTEJO UNIT #: [id number] ROOM/BED: [address] : 44 AGE: 74 SEX: F ATTEND: Emmanuelle Almazan MD ADM AUTHOR: Caridad Esteves * ALL edits or amendments must be made on the AttorneyFee/computer document * Op/Inv Proc Note - Brief Pre-procedure diagnosis: Bleeding right iliac artery Hematoma right retroperitoneum Post-procedure diagnosis: same as pre procedure dx Procedures performed: Exploration of the right retroperitoneum. Evacua tion of hematoma, Primary Surgeon: Mario Das Poke In(s): DAYANA Norris Anesthesiologist: Dr. Jarred Ortiz CRNA Anesthesia: general anesthesia Findings: See detailed op report Complications: none Estimated blood loss in ml's: 200 cc Specimens removed/altered: hematoma Approach: open Wound class: clean Disposition: ICU, stable at 1643 at 1939 [facility] #:[id number] END OF REPORT 2020-05-27 15:41:00-00:00 [id number] [place] [address] PATIENT NAME: RUTH ANN MONTEJO ADMIT ANA E: 05/27/20 ACCOUNT NO: [id number] [facility] 74 REPORT TYPE: OPERATIVE [...] Right CVP insertion. SURGEON: Mario Das MD AUTOMOTIVE REFINISH TECHNICIAN: 1. [place] licensed ward assistant. 2. Herb licensed ward assistant. ANESTHESIA: General. COMPLICATIONS: None. DISPOSITION: The [...] ion. Dictated By: Mario Das MD WT: OP:JOSEPH/PEREZ/EVA Conf#: [id number]/DID#: [id number] cc: Radha Salinas MD Authenticated and Edited by Mario Das MD On 06/04/20 3:37:23 PM at 1541 PATIENT NAME: RUTH ANN MONTEJO 2020-05-27 13:34:00-00:00 [id number] [place] [id number] PATIENT NAME: RUTH ANN MONTEJO ADMIT DA TE: 05/27/20 ACCOUNT NO: [id number] ROOM NO: [facility] AGE: 74 REPORT TYPE: CARDIAC CATHETERIZATION REPORT SEX: F ADMITTING PHYSICIAN:Humberto Carter MD ATTENDING PHYSICIAN:Radha Salinas MD PROCEDURE DATE: 05/27/2020 SYSTEMS PROGRAMMER: Radha Salinas MD INDICATION FOR THE PROCEDURE: Disabling bilatera l leg claudications, worse on the right in a patient with extensive peripheral arterial disease and extensive atherosclerotic cardiovascular disease history. TITLE OF THE PROCEDURE: 1. Abdominal and bilateral selective iliofemoral angiograms. 2. First order angiogram of the left lower extre mity. 3. Third order angiogram of the left lower extre mity. 4. ENGRAVER AUTOMATIC of the right SFA. 5. ENGRAVER AUTOMATIC of the right popliteal. 6. ENGRAVER AUTOMATIC of the right internal iliac to stop the b leeding. ESTIMATED BLOOD LOSS: Significant. CONTRAST: 280. ANESTHESIA: Conscious sedation with Versed and f entanyl and 1% lidocaine for local anesthesia. COMPLICATIONS: Right internal iliac bleed. DISPOSITION: Operating room for the right engineer intern al iliac bleed. FINAL DIAGNOSES: Severe peripheral arterial dise ase bilaterally, status post ENGRAVER AUTOMATIC of the right SFA and the right [...] moral artery area for local anesthesia. A 6-Prydeinig sheath was placed in the left common [...] about the amount of hematoma, so Dr. Tihago wills ided to take the patient to surgery [...] Radha Salinas MD WT: CATH:JUAN ALBERTO/PERLA/EVA Conf#: [id number]/DID#: [id number] Authenticated by Radha Salinas MD On 05/07 02:57:22 PM at 1457 PATIENT NAME: RUTH ANN MONTEJO 2020-05-27 12:44:00-00:00 [id number] [place] [address] PATIENT NAME: RUTH ANN MONTEJO ADMIT ANA E: 05/27/20 ACCOUNT NO: [id number] ROOM NO: Z.358 AGE: 74 REPORT TYPE: [...] I discussed the case with the pa tient and also with the patient's daughter. Our plan is to go to the operating room for exploration and repair of the artery. This was discussed in detail with the daughter including potential risks and complications, she agrees. Dictated By: Mario Das MD WT: CON:JOSEPH/PEREZ/EVA PATIENT NAME: RUTH ANN MONTEJO Conf#: [id number]/DID#: [id number] Authenticated by Mario Das MD On 020 03:37:05 PM at 1537 PATIENT NAME: RUTH ANN MONTEJO 2020-05-27 07:40:00-00:00 [id number] [place] [address] PATIENT NAME: RUTH ANN MONTEJO ADMIT ANA E: 05/27/20 ACCOUNT NO: [id number] ROOM NO: AGE: 74 REPORT TYPE: ELECTROCARDIOGRAM SEX: F ADMITTING PHYSICIAN: ATTENDING PHYSICIAN:Radha Salinas MD Order: [id number] Test Reason : ABDOMINAL AORTOGRAM Test Date/Time Stamp: FriMay 27 2020 07:40:37 Blood Pressure : / [...] PATIENT NAME: RUTH ANN MONTEJO 2020-05-25 18:22:00-00:00 [id number] [place] [address] PATIENT NAME: RUTH ANN MONTEJO ADMIT DA TE: ACCOUNT NO: [id number] ROOM NO: AGE: 74 REPORT TYPE: HISTORY AND PHYSICAL SEX: F ADMITTING PHYSICIAN: ATTENDING PHYSICIAN:Radha Salinas MD PATIENT NAME: RUTH ANN MONTEJO ADMIT ANA E:05/27/2020 ADMISSION DATE: 05/27/2020 ADMISSION HISTORY AND PHYSICAL SYSTEMS PROGRAMMER: Radha Salinas MD REASON FOR ADMISSION: Abdominal [...] fracti on of 55% to 60% with [id number] valvular insufficiencies. Her last nuclear stres s [...] By: Radha Salinas MD WT: HP:JOSEPH/PERLA/EVA Conf#: [id number]/DID#: [id number] Authenticated and Edited by Radha Salinas MD On 05/25/20 8:34:32 PM at 2036 PATIENT NAME: RUTH ANN MONTEJO 2019-03-20 13:53:00-00:00 [id number] [place] [address] PATIENT NAME: RUTH ANN MONTEJO ADMIT DA TE: 03/20/19 ACCOUNT NO: [id number] ROOM NO: AGE: 73 REPORT TYPE: CARDIAC CATHETERIZATION REPORT SEX: F ADMITTING PHYSICIAN: ATTENDING PHYSICIAN:Radha Salinas MD PROCEDURE DATE: 03/20/2019 CARDIOVASCULAR PROCEDURE SYSTEMS PROGRAMMER: Radha Salinas MD INDICATION FOR THE PROCEDURE: Disabling peripheral arterial disease with right lower extremity claudication, previous stenting of the right SFA, and recent angiogram showing significant disease. TITLE OF THE PROCEDURE: 1. Selective bilateral iliofemoral angio grams, third order on the right, first order on the left, orbital a therectomy, ENGRAVER AUTOMATIC and stenting of the right SFA, total [...] patient is now status post orbital atherectomy, ENGRAVER AUTOMATIC and stenting of the right SFA. PROCEDURE IN DETAIL: After informed consent, the patient was brought to the cardiac catheterization lab in a stable fasting nonsedated state. She was prepped and draped in the usual sterile fashion. After conscious sedation, 1% lidocaine was administered to the left common fe moral artery area for local anesthesia. A 6-Prydeinig sheath was placed in the left common [...] using the NaviCross catheter and th e [place] Advantage wire, I was PATIENT NAME: RUTH [...] proximal to that and they w ere epic vascular 7 x 120. Followup angiograms even [...] Radha Salinas MD WT: CATH:JUAN ALBERTO/PERLA/EVA Conf#: [id number]/DID#: [id number] Authenticated by Radha Salinas MD On 03/06 04:08:19 PM at 1608 PATIENT NAME: RUTH ANN MONTEJO 2019-03-20 09:22:00-00:00 [id number] [place] [address] PATIENT NAME: RUTH ANN MONTEJO ADMIT ANA E: 03/20/19 ACCOUNT NO: [id number] ROOM NO: AGE: 73 REPORT TYPE: ELECTROCARDIOGRAM SEX: F ADMITTING PHYSICIAN: ATTENDING PHYSICIAN:Radha Salinas MD Order: [id number] Test Reason : PVD Test Date/Time Stamp: [...] By: Radha Salinas Confirmed by:RADHA LINDSEY at 1401 PATIENT NAME: RUTH ANN MONTEJO 2019-03-19 07:29:00-00:00 [id number] [place] [id number] PATIENT NAME: RUTH ANN MONTEJO ADMIT ANA E: ACCOUNT NO: [id number] ROOM NO: AGE: 73 REPORT TYPE: HISTORY AND PHYSICAL SEX: F ADMITTING PHYSICIAN: ATTENDING PHYSICIAN:Radha Salinas MD PATIENT NAME: RUTH ANN MONTEJO ADMIT ANA E:03/20/2019 ADMISSION DATE: 03/20/2019 SYSTEMS PROGRAMMER: Radha Salinas MD REASON FOR ADMISSION: Revascularization of sever e disease that is symptomatic of the right SFA. HISTORY OF PRESENT ILLNESS: Ruth Ann is a 73-year- old patient of [employer] with extensive atherosclerotic cardiovascular disease history, who [...] By: Radha Salinas MD WT: HP:JOSEPH/PERLA/EVA Conf#: [id number]/DID#: [id number] Authenticated and Edited by Radha Salinas MD On 03/19/19 6:35:30 PM at 1837 PATIENT NAME: RUTH ANN MONTEJO 2019-02-06 12:12:00-00:00 [id number] [facility] [address] [place] [address] PATIENT NAME: RUTH ANN MONTEJO ADMIT ANA E: 02/06/19 ACCOUNT NO: [id number] ROOM NO: AGE: 73 REPORT TYPE: CARDIAC CATHETERIZATION REPORT SEX: F ADMITTING PHYSICIAN: ATTENDING PHYSICIAN:Radha Salinas MD PROCEDURE DATE: CARDIOVASCULAR PROCEDURE SYSTEMS PROGRAMMER: Radha Salinas MD INDICATION FOR PROCEDURE: Left foot ischemia in a patient with severe peripheral arterial disease and previous interventions and known atherosclerotic cardiovascular disease. TITLE OF THE PROCEDURE: Abdominal and bilateral selective iliofemoral angiograms, first order angiogram of the right l ower extremity, third order angiogram of the left lower extremity, orbital atherectomy, ENGRAVER AUTOMATIC and stenting of the left SFA x3, ENGRAVER AUTOMATIC and stenting of the right c ommon [...] emoral artery area for local anesthesia. A 6-Prydeinig sheath was placed in the right common femoral artery using standard techniques and fluoroscopy. It wa s very hard to access the calcified right common femoral artery. I had to use the dilator first and then use the [place] Advantage wire to be able to push [...] after using an Trail[employer]azer catheter and the [place] Advantage wire to wire al l the [...] the right commo n iliac with a [employer] 8 x 17 iliac stent that [...] well. She was transferred back to the [facility] area for observation and to be discharged later on today on medical therapy and risk factor modification. Dictated By: Radha Salinas MD WT: CATH:JUAN ALBERTO/PERLA/EVA Conf#: [id number]/DID#: [id number] PATIENT NAME: RUTH ANN MONTEJO Authenticated by Radha Salinas MD On 01/2019 02:11:51 PM at 1412 PATIENT NAME: RUTH ANN MONTEJO 2019-02-06 07:31:00-00:00 [id number] [place] [address] PATIENT NAME: RUTH ANN MONTEJO ADMIT DA TE: 02/06/19 ACCOUNT NO: [id number] ROOM NO: AGE: 73 REPORT TYPE: ELECTROCARDIOGRAM SEX: F ADMITTING PHYSICIAN: ATTENDING PHYSICIAN:Rdaha Salinas MD Order: [id number] Test Reason : PVD Test Date/Time Stamp: [...] PATIENT NAME: RUTH ANN MONTEJO 2019-02-04 18:23:00-00:00 [id number] [place] [address] PATIENT NAME: RUTH ANN MONTEJO ADMIT ANA E: 02/06/19 ACCOUNT NO: [id number] ROOM NO: AGE: 73 REPORT TYPE: HISTORY [...] extremities. Her last procedure was done at [facility] on 08/15/2018. At that time, her left [...] Radha Salinas MD WT: HP:JOSEPH/PERLA/EVA PATIENT NAME: RUTH ANN MONTEJO Conf#: [id number]/DID#: [id number] Authenticated and Edited by Radha Salinas MD On 02/06/19 6:14:31 AM at 0629 PATIENT NAME: RUTH ANN MONTEJO
--- NOTE | 2023-06-05 11:53 | RAD REPORT ---
EXAM DESCRIPTION: USExtremity Venous Uni Ltd06/05/2023 11:42 am CLINICAL HISTORY: Right leg pain COMPARISON: None. FINDINGS: Right common femoral, superficial femoral, greater saphenous, popliteal and right posterio r tibial veins are compressible and demonstrate augmentation. Doppler demonstrates good flow. Grayscale, color and spectral analysis performed on all vessels IMPRESSION: No evidence of deep venous thrombosis involving the right lower extremity.
--- NOTE | 2023-06-05 12:02 | RAD REPORT ---
EXAM DESCRIPTION: RAD - Knee Right 3 View - 06/05/2023 11:56 am CLINICAL HISTORY: Right knee pain FINDINGS: No fracture or dislocation is seen. Small joint effusion is present. Femoral vascular stent present
[2023-06-05] MEDS ORDERED: HYDROCODONE/APAP 5/325 MG TAB ONE (12:09)
--- NOTE | 2023-06-05 14:12 | RAD REPORT ---
EXAM DESCRIPTION: US - Lower Extremity Artery Uni Ltd - 06/05/2023 12:53 pm CLINICAL HISTORY: PAIN COMPARISON: Head C Spine Cap Wo Con dated 03/25/2023 TECHNIQUE: Right lower extremity arterial Doppler examination was performed with waveform tracing. FINDINGS: Scattered at least moderate atherosclerotic calcifications. At least moderate stenosis along the prox imal to mid aspect of the proximal right SFA stent, with turbulent flow proximal to the stenosis. Mon ophasic waveforms along the DIV[employer]ITY [employer] and proximal right SFA with spectral broadening. Monophasic to biphas ic waveforms throughout the mid SFA to dorsalis pedis artery, with blunted upstroke. IMPRESSION: At least moderate stenosis at the proximal to mid aspect of the right proximal SFA stent , we pre stenotic spectral broadening. Blunted upstroke more distally throughout the mid SFA through dorsalis pedis artery, with overall moderate peripheral vascular disease.
--- NOTE | 2023-06-05 14:46 | ER ---
Nurse's Notes [facility] Name: Alyson Ibarra Age: 77 yrs Sex: Female : 1945 Arrival Date: 06/05/2023 Time: 11:22 Bed 12 Private MD: Diagnosis: Pain in right knee Presentation: 06/05 11:45 Ebola Screen: Patient denies travel to an Ebola-affected area in the 21 days before ll1 illness onset. Risk Assessment: Do you want to hurt yourself or someone else? Patient reports no desire to harm self or others. 11:45 Method Of Arrival: EMS: [facility] ll1 11:45 Acuity: LTEY 4 ll1 11:54 Chief complaint: Patient states: R knee pain for 2 days. Coronavirus screen: Vaccine ll1 status: Patient reports receiving the 2nd dose of the covid vaccine. Client denies travel out of the [place] in the last 14 days. At this time, the client does not indicate any symptoms associated with coronavirus-19. Initial Sepsis Screen: Does the patient meet any 2 criteria? No. Patient's initial sepsis screen is negative. Does the patient have a suspected source of infection? Yes: Bone or joint infection. Onset of symptoms was June 04, 2023. Historical: - Allergies: 11:45 Cipro; ll1 - PMHx: 11:45 Hyperlipidemia; neuropathy; Hypertension; Diabetes - IDDM; COPD; CAD; CHF; ll1 - PSHx: 11:45 Heart Stents; ll1 - Immunization history:: Adult Immunizations up to date. - Social history:: Smoking status: Patient denies any tobacco usage or history of. Screenin:04 [facility] ED Fall Risk Assessment (Adult) History of falling in the last 3 months, mb9 including since admission No falls in past 3 months (0 pts) Confusion or Disorientation No (0 pts) Intoxicated or Sedated No (0 pts) Impaired Gait No (0 pts) Mobility Assist Device Used No (0 pt) Altered Elimination No (0 pt) Score/Fall Risk Level 0 - 2 = Low Risk Oriented to surroundings, Maintained a safe environment, Educated pt \T\ family on fall prevention, incl call for assistance when getting out of bed. Abuse screen: Denies threats or abuse. Nutritional screening: No deficits noted. Tuberculosis screening: No symptoms or risk factors identified. Assessment: 13:04 Derm: Skin is pink, warm \T\ dry. Musculoskeletal: Range of motion: intact in all mb9 extremities, Reports pain in right knee. 13:04 General: Appears in no apparent distress. Behavior is calm, cooperative. Pain: mb9 Complains of pain in right knee Pain does not radiate. Quality of pain is described as throbbing, Pain began 2-3 days ago. Neuro: Portillo Agitation-Sedation Scale (RASS): 0 - Alert and Calm Level of Consciousness is awake, alert, obeys commands, Oriented to person, place, time, situation, Appropriate for age. Respiratory: Airway is patent Respiratory effort is even, unlabored, Respiratory pattern is regular, symmetrical. 14:06 Reassessment: No changes from previously documented assessment. Patient and/or family mb9 updated on plan of care and expected duration. Pain level reassessed. Patient is alert, oriented x 3, equal unlabored respirations, skin warm/dry/pink. Vital Signs: 11:54 BP 105 / 52; Pulse 70; Resp 18; Temp 97.7; Pulse Ox 99% ; Weight 80.74 kg; Height 5 ft. ll1 5 in. ; Pain 10/10; 14:05 BP 110 / 64; Pulse 71; Resp 18; Pulse Ox 100% on R/A; mb9 11:54 Body Mass Index 29.62 (80.74 kg, 165.1 cm) ll1 11:54 Pain Scale: Adult ll1 ED Course: 11:24 Patient arrived in ED. rg4 11:25 Chidi Melara DO is Attending Physician. ms3 11:43 US Extremity Venous Unilateral Ltd In Process Unspecified. EDMS 11:45 Triage completed. ll1 11:45 Arm band placed on. ll1 11:58 Knee Right 3 View XRAY In Process Unspecified. EDMS 12:54 US Lower Extremity Artery Uni Ltd In Process Unspecified. EDMS 13:04 Placed in gown. Bed in low position. Call light in reach. Side rails up X 1. Client mb9 placed on continuous cardiac and pulse oximetry monitoring. NIBP monitoring applied. 13:05 Inessa Fontenot, LINO is Primary Nurse. mb9 13:05 No provider procedures requiring assistance completed. Patient did not have IV access mb9 during this emergency room visit. 14:45 Juwan Gu MD is Referral Physician. ms3 Administered Medications: 11:52 Not Given (Patient Refused): Ibuprofen PO 600 mg PO once ll1 11:59 Drug: HYDROcodone-acetaminophen PO 5 mg-325 mg 1 tabs Route: PO; ll1 13:41 Follow up: Response: No adverse reaction mb9 Medication: 13:05 VIS not applicable for this client. mb9 Outcome: 14:45 Discharge ordered by . ms3 15:00 Discharged to home via wheelchair, with family. mb9 15:00 Condition: stable 15:00 Discharge instructions given to patient, Instructed on discharge instructions, follow up and referral plans. Demonstrated understanding of instructions, follow-up care, medications, Prescriptions given X 1. 15:00 Patient left the ED. mb9 Signatures: Dispatcher [employer] EDMS Domitila Montero rg4 Anna Herron, LINO RN ll1 Chidi Melara DO DO ms3 Inessa Fontenot RN RN mb9 Corrections: (The following items were deleted from the chart) 13:04 13:04 Derm: Skin is pink, warm \T\ dry. mb9 mb9
--- NOTE | 2023-06-05 14:46 | EDPHYS ---
Physician Documentation [facility] Name: Alyson Ibarra Age: 77 yrs Sex: Female : 1945 Arrival Date: 06/05/2023 Time: 11:22 Bed 12 Private MD: ED Physician Chidi Melara HPI: 06/05 11:43 This 77 yrs old Female presents to ER via Unassigned with complaints of Knee ms3 Pain. 11:43 77-year-old female with past medical history of diabetes, coronary artery disease, ms3 hyperlipidemia, hypertension presents for right lateral knee pain that began yesterday at 5 PM while sitting. Patient denies fall, trauma. [facility] notes patient to have pulse, motor, sensation in right foot. Patient states pain is worse with movement. EMS notes patient's blood pressure 120 over 80s, heart rate 70s, 100% on room air. Patient rates her pain a 10/10. Historical: - Allergies: 11:45 Cipro; ll1 - PMHx: 11:45 Hyperlipidemia; neuropathy; Hypertension; Diabetes - IDDM; COPD; CAD; CHF; ll1 - PSHx: 11:45 Heart Stents; ll1 - Immunization history:: Adult Immunizations up to date. - Social history:: Smoking status: Patient denies any tobacco usage or history of. ROS: 11:43 Constitutional: Negative for fever, and chills. Cardiovascular: Negative for chest ms3 pain, and palpitations. Respiratory: Negative for shortness of breath, cough, wheezing, and pleuritic chest pain, Abdomen/GI: Negative for abdominal pain, nausea, vomiting, diarrhea, and constipation. 11:43 MS/extremity: Positive for pain, of the Right knee. 11:43 All other systems are negative. Exam: 11:43 Constitutional: This is a well developed, well nourished patient who is awake, alert, ms3 and in no acute distress. Head/Face: Normocephalic, atraumatic. Eyes: Pupils equal round and reactive to light, extra-ocular motions intact. Lids and lashes normal. Conjunctiva and sclera are non-icteric and not injected. Periorbital areas with no swelling, redness, or edema. Neck: Trachea midline, no cervical lymphadenopathy. Supple, full range of motion without nuchal rigidity, or vertebral point tenderness. No Meningismus. Chest/axilla: Normal chest wall appearance and motion. Nontender with no deformity. Cardiovascular: Regular rate and rhythm with a normal S1 and S2. No gallops, murmurs, or rubs. Normal PMI, no JVD. No pulse deficits. Respiratory: Lungs have equal breath sounds bilaterally, clear to auscultation and percussion. No rales, rhonchi or wheezes noted. No increased work of breathing, no retractions or nasal flaring. Abdomen/GI: Soft, non-tender, with normal bowel sounds. No distension or tympany. No guarding or rebound. No evidence of tenderness throughout. 11:43 Musculoskeletal/extremity: Extremities: noted in the Right knee: pain, tenderness. Vital Signs: 11:54 BP 105 / 52; Pulse 70; Resp 18; Temp 97.7; Pulse Ox 99% ; Weight 80.74 kg; Height 5 ft. ll1 5 in. ; Pain 10/10; 14:05 BP 110 / 64; Pulse 71; Resp 18; Pulse Ox 100% on R/A; mb9 11:54 Body Mass Index 29.62 (80.74 kg, 165.1 cm) ll1 11:54 Pain Scale: Adult ll1 MDM: 11:43 Differential diagnosis: DVT vs OA vs Fx. ms3 12:26 Patient medically screened. ms3 14:45 Data reviewed: vital signs, nurses notes, lab test result(s), radiologic studies, plain ms3 films, ultrasound, and as a result, I will discharge patient. I considered the following discharge prescriptions or medication management in the emergency department Medications were administered in the Emergency Department. See MAR. Independent interpretation of the following test(s) in the Emergency Department X-Ray: My interpretation is Right knee x-ray images reviewed do not reveal fracture.. Historians other than the Patient: EMS: . Counseling: I had a detailed discussion with the patient and/or guardian regarding the historical points, exam findings, and any diagnostic results supporting the discharge/admit diagnosis, radiology results, the need for outpatient follow up, to return to the emergency department if symptoms worsen or persist or if there are any questions or concerns that arise at home. Special discussion: I discussed with the patient/guardian in detail that at this point there is no indication for admission to the hospital. It is understood, however, that if the symptoms persist or worsen the patient needs to return immediately for re-evaluation. ED course: Discussed ultrasounds and x-ray with patient. Patient to follow-up with primary care physician in 2 to 3 days. Patient understands agrees with plan. Questions were answered. Return precautions discussed include worsening symptoms, or any other concerns.. 06/05 11:26 Order name: Knee Right 3 View XRAY; Complete Time: 12:26 ms3 06/05 11:26 Order name: US Extremity Venous Unilateral Ltd; Complete Time: 12:26 ms3 06/05 12:28 Order name: US Lower Extremity Artery Uni Ltd; Complete Time: 14:24 ms3 Administered Medications: 11:52 Not Given (Patient Refused): Ibuprofen PO 600 mg PO once ll1 11:59 Drug: HYDROcodone-acetaminophen PO 5 mg-325 mg 1 tabs Route: PO; ll1 13:41 Follow up: Response: No adverse reaction mb9 Disposition Summary: 06/05/23 14:45 Discharge Ordered Location: Home ms3 Condition: Stable ms3 Diagnosis - Pain in right knee ms3 Followup: ms3 - With: Jwuan Gu MD - When: 2 - 3 days - Reason: Recheck today's complaints Discharge Instructions: - Discharge Summary Sheet ms3 - Acute Knee Pain, Adult ms3 Forms: - Medication Reconciliation Form ms3 - Thank You Letter ms3 - Antibiotic Education ms3 - Prescription Opioid Use ms3 - Patient Portal Instructions ms3 - Leadership Thank You Letter ms3 Prescriptions: - ibuprofen 400 mg Oral tablet - take 1 tablet by ORAL route every 4 to 6 hours as needed for fever or pain; 20 ms3 tablet; Refills: 0, Product Selection Permitted Signatures: Dispatcher [employer] Anna Christian, RN RN ll1 Chidi Melara DO DO ms3 Inessa Fontenot RN mb9
[2023-06-05 15:51] VITALS: TEMP 97.7
[2023-06-05 15:53] VITALS: BP 110/64; O2SAT 100
== END 2023-06-05 15:00 | disposition home or self-care (01) ==
LOC: ER 11:22
DX: M25.561 Pain in right knee (principal); Z88.1 Allergy status to other antibiotic agents; Z95.818 Presence of other cardiac implants and grafts
CPT/HCPCS: 93926; 93971; 99284

== ENCOUNTER → 2023-11-19 | Emergency (ER) | payer OTHER ==
[~2023-11-19] MED LIST: NA CHLORIDE 0.9% 1,000 ML ONE; PANTOPRAZOLE 40 MG INJ ONE
[2023-11-19 11:28] LABS: Absolute Lymphocytes (CBC) 0.7 K/uL (0.7-4.9); Hematocrit 23.7 % (36.0-45.0); Lymphocytes % 16.7 % (15.3-44.8); MCV 89.4 fL (80-100); MPV 7.8 fL (7.6-11.3); Platelets 144 thou/uL (152-406); RBC Red Blood Cell Count 2.65 M/uL (3.86-4.86)
[2023-11-19 11:45] LABS: Albumin 2.5 g/dL (3.4-5.0); Potassium 4.4 mEq/L (3.5-5.1); Protein, Total 5.5 g/dL (6.4-8.2)
[2023-11-19 12:14] LABS: Blood Morphology Comment NOTED (NOT SEEN); Platelet Estimate DECR; Polychromasia 1+
--- NOTE | 2023-11-19 12:50 | RAD REPORT ---
EXAM DESCRIPTION: CT - Abdomen Pelvis W Contrast - 11/19/2023 12:04 pm CLINICAL HISTORY: melena post surgery COMPARISON: Head C Spine Cap Wo Con dated 03/25/2023 TECHNIQUE: Thin cut axial CT imaging of the abdomen and pelvis was performed following intravenous a dministration of 100 mL Isovue 300. Multiplanar reformats were generated and reviewed. All CT scans are performed using dose optimization technique as appropriate and may include automated exposure control or mA/KV adjustment according to patient size. FINDINGS: No suspicious findings in the lung bases. The liver, spleen, adrenal glands, and pancreas show no suspicious findings. Gallbladder was surgical ly removed. Symmetric renal function is seen with no hydronephrosis or suspicious renal mass. Postsurgical changes of right ventral hernia repair. Small locules of gas along the anterior abdomina l wall, extending along the right subdiaphragmatic region. Poorly defined fluid accumulation along th e anterior right abdominal wall measuring up to 14.5 x 4.2 cm in greatest axial dimensions and up to 22.6 cm in greatest craniocaudal extent. Mildly dilated small bowel loops in the central abdomen, and left flank, without a discrete transition point. Small volume free fluid in the pelvis. . No hernia, mass or bulky lymphadenopathy. The urinary bladder is without significant finding. No suspicious bony findings. Superior endplate compression deformities at L3 and L5, and milder compr ession deformities at T11 through L2, stable. IMPRESSION: Postsurgical changes of right ventral hernia repair. Limited intraperitoneal gas and ill -defined large seroma along the right anterior abdominal wall as above. Segmental mild central abdominal and left flank small bowel dilation, suggestive of ileus. Small volume pelvic free fluid, nonspecific.
--- NOTE | 2023-11-19 13:47 | EDPHYS ---
Physician Documentation [facility] Name: Alyson Ibarra Age: 78 yrs Sex: Female : 1945 Arrival Date: 11/19/2023 Time: 11: Bed 5 Private MD: ED Physician Anson France HPI: 11/19 11:27 This 78 yrs old Female presents to ER via EMS with complaints of black stools. rt 11:27 Patient presents to the ED with report of black stools. Patient had a hernia repair rt surgery at [facility] 4 days ago that was reportedly uncomplicated. Patient woke up today and noticed a large amount of dark black stools when she was having a bowel movement. Denies any pain, nausea, vomiting. Denies other acute complaints, symptoms are moderate in severity, no other aggravating or alleviating factors.. Historical: - Allergies: 11: Cipro; mb9 - Home Meds: : metoprolol succinate 50 mg Oral Tb24 1 tab once daily [Active]; losartan 25 mg Oral tab mb9 1 tab once daily [Active]; atorvastatin 40 mg Oral tab 1 tab once daily [Active]; gabapentin 100 mg Oral cap 3 caps twice daily [Active]; furosemide 40 mg Oral tab 1.5 tabs once daily [Active]; - PMHx: 11:09 CAD; Hyperlipidemia; COPD; Diabetes - IDDM; CHF; Hypertension; neuropathy; mb9 - PSHx: 11: Heart Stents; mb9 - Immunization history:: Adult Immunizations up to date. - Social history:: Smoking status: Patient denies any tobacco usage or history of. - Family history:: not pertinent. ROS: 11:27 Constitutional: Negative for fever, chills, and weight loss, Cardiovascular: Negative rt for chest pain, palpitations, and edema, Respiratory: Negative for shortness of breath, cough, wheezing, and pleuritic chest pain, MS/Extremity: Negative for injury and deformity, Skin: Negative for injury, rash, and discoloration, Neuro: Negative for headache, weakness, numbness, tingling, and seizure, Psych: Negative for depression, anxiety, suicide ideation, homicidal ideation, and hallucinations, 11:27 Abdomen/GI: Positive for Melena, negative for nausea, vomiting, abdominal pain, Exam: 11:27 Constitutional: This is a well developed, well nourished patient who is awake, alert, rt and in no acute distress. Head/Face: Normocephalic, atraumatic. Chest/axilla: Normal chest wall appearance and motion. Nontender with no deformity. No lesions are appreciated. Cardiovascular: Regular rate and rhythm with a normal S1 and S2. No gallops, murmurs, or rubs. Normal PMI, no JVD. No pulse deficits. Respiratory: Lungs have equal breath sounds bilaterally, clear to auscultation and percussion. No rales, rhonchi or wheezes noted. No increased work of breathing, no retractions or nasal flaring. Skin: Warm, dry with normal turgor. Normal color with no rashes, no lesions, and no evidence of cellulitis. MS/ Extremity: Pulses equal, no cyanosis. Neurovascular intact. Full, normal range of motion. Neuro: Awake and alert, GCS 15, oriented to person, place, time, and situation. Cranial nerves II-XII grossly intact. Motor strength 5/5 in all extremities. Sensory grossly intact. Cerebellar exam normal. Normal gait. Psych: Awake, alert, with orientation to person, place and time. Behavior, mood, and affect are within normal limits. 11:27 Abdomen/GI: No abdominal tenderness, distention, no stool in rectal vault, Vital Signs: 11:08 BP 165 / 65; Pulse 113; Resp 18; Temp 98.2; Pulse Ox 100% ; Weight 83.91 kg; Height 5 mb9 ft. 4 in. ; Pain 0/10; 12:12 BP 135 / 68; Pulse 109; Resp 18; Pulse Ox 99% on R/A; mb9 13:38 BP 142 / 60; Pulse 104; Resp 18; Pulse Ox 100% on R/A; mb9 14:02 BP 138 / 72; Pulse 98; Resp 18; Pulse Ox 100% on R/A; mb9 11:08 Body Mass Index 31.75 (83.91 kg, 162.56 cm) mb9 11:08 Pain Scale: Adult mb9 MDM: 11:08 Patient medically screened. rt 13:43 Differential Diagnosis Melena, black stools, postoperative complication. Data reviewed: rt vital signs, nurses notes, lab test result(s), radiologic studies. Consideration of Admission/Observation Escalation of care including admission/observation considered. I discussed with the patient surgeon, hemoglobin is stable, no signs of active bleeding currently on rectal exam, vital signs are stable. Patient surgeon states that patient is stable to follow-up as an outpatient, follow-up patient tomorrow. Strict return precautions were given. Patient verbalized understanding is comfortable with this plan. She was provided with a disc and lab results from today. Management of patient was discussed with the following: Load Dispatcher Local: Discussed with the patient surgeon will follow-up the patient tomorrow. I considered the following discharge prescriptions or medication management in the emergency department Medications were administered in the Emergency Department. See MAR. Independent interpretation of the following test(s) in the Emergency Department CT Scan: My interpretation is No bowel obstruction symptomatic the patient of CT scan images. Care significantly affected by the following chronic conditions: Diabetes. Counseling: I had a detailed discussion with the patient and/or guardian regarding the historical points, exam findings, and any diagnostic results supporting the discharge/admit diagnosis, lab results, radiology results, the need for outpatient follow up, to return to the emergency department if symptoms worsen or persist or if there are any questions or concerns that arise at home. 11/19 11:09 Order name: CBC with Diff; Complete Time: 12:23 rt 11/19 11:09 Order name: CMP; Complete Time: 11:46 rt 11/19 11:09 Order name: Lipase; Complete Time: 11:46 rt 11/19 12:14 Order name: Manual Differential; Complete Time: 12:23 EDMS 11/19 11:09 Order name: CT Abd/Pelvis - IV Contrast Only; Complete Time: 12:52 rt 11/19 11:09 Order name: IV Saline Lock; Complete Time: 11: rt 11/19 11:09 Order name: Labs collected and sent; Complete Time: 11:23 rt Administered Medications: 11:23 Drug: NS 0.9% IV 1000 ml IV at 1 bolus Per protocol; 1000 mL bolus Route: IV; Rate: 1 mb9 bolus; Site: right antecubital; 11:23 Drug: Pantoprazole IVP 40 mg IVP once Route: IVP; Site: right antecubital; mb9 13:10 Follow up: Response: No adverse reaction mb9 Disposition Summary: 11/19/23 13:47 Discharge Ordered Notes: Location: Home rt Problem: new rt Symptoms: have improved rt Condition: Stable rt Diagnosis - Postoperative seroma rt Followup: rt - With: Private Physician - When: Tomorrow - Reason: Discharge Instructions: - Discharge Summary Sheet rt - Seroma rt Forms: - Medication Reconciliation Form rt - Thank You Letter rt - Antibiotic Education rt - Prescription Opioid Use rt - Patient Portal Instructions rt - Leadership Thank You Letter rt Signatures: Dispatcher [employer] Inessa Whiteside RN RN mb9 Anson France MD MD rt
--- NOTE | 2023-11-19 13:47 | ER ---
Nurse's Notes [facility] Name: Alyson Ibarra Age: 78 yrs Sex: Female : 1945 Arrival Date: 11/19/2023 Time: 11:02 Bed 5 Private MD: Diagnosis: Postoperative seroma Presentation: 11/19 11:08 Chief complaint: EMS states: "toned out for dark black blood in stool that occurred mb9 today. Pt states she had a hernia repair 4 days ago at [facility] with Dr. Barksdale. Pt denies pain.". Coronavirus screen: Vaccine status: Patient reports being unvaccinated. Ebola Screen: No symptoms or risks identified at this time. Initial Sepsis Screen: Does the patient meet any 2 criteria? No. Patient's initial sepsis screen is negative. Does the patient have a suspected source of infection? No. Patient's initial sepsis screen is negative. Risk Assessment: Do you want to hurt yourself or someone else? Patient reports no desire to harm self or others. Onset of symptoms was November 19, 2023. 11:08 Method Of Arrival: EMS: [facility] mb9 11:08 Acuity: LETY 3 mb9 Triage Assessment: 11:10 General: Appears in no apparent distress. Behavior is calm, cooperative. Pain: Denies mb9 pain. EENT: No deficits noted. No signs and/or symptoms were reported regarding the EENT system. Neuro: Portillo Agitation-Sedation Scale (RASS): 0 - Alert and Calm Level of Consciousness is awake, alert, obeys commands, Oriented to person, place, time, situation, Appropriate for age. Cardiovascular: Patient's skin is warm and dry. Cardiovascular: Rhythm is sinus tachycardia. Respiratory: Airway is patent Respiratory effort is even, unlabored, Respiratory pattern is regular, symmetrical. GI: Abdomen is round non-distended, Bowel sounds present X 4 quads. Abd is soft and non tender X 4 quads. Reports bloody stool. : No signs and/or symptoms were reported regarding the genitourinary system. Derm: Skin is fragile, is thin, Skin is dry, Skin is pale, Skin temperature is warm. Musculoskeletal: Range of motion: intact in all extremities. Historical: - Allergies: 11:09 Cipro; mb9 - Home Meds: 11:09 metoprolol succinate 50 mg Oral Tb24 1 tab once daily [Active]; losartan 25 mg Oral tab mb9 1 tab once daily [Active]; atorvastatin 40 mg Oral tab 1 tab once daily [Active]; gabapentin 100 mg Oral cap 3 caps twice daily [Active]; furosemide 40 mg Oral tab 1.5 tabs once daily [Active]; - PMHx: 11:09 CAD; Hyperlipidemia; COPD; Diabetes - IDDM; CHF; Hypertension; neuropathy; mb9 - PSHx: 11: Heart Stents; mb9 - Immunization history:: Adult Immunizations up to date. - Social history:: Smoking status: Patient denies any tobacco usage or history of. - Family history:: not pertinent. Screenin:11 [facility] ED Fall Risk Assessment (Adult) History of falling in the last 3 months, mb9 including since admission No falls in past 3 months (0 pts) Confusion or Disorientation No (0 pts) Intoxicated or Sedated No (0 pts) Impaired Gait No (0 pts) Mobility Assist Device Used No (0 pt) Altered Elimination No (0 pt) Score/Fall Risk Level 0 - 2 = Low Risk Oriented to surroundings, Maintained a safe environment, Educated pt \\T\\ family on fall prevention, incl call for assistance when getting out of bed. Abuse screen: Denies threats or abuse. Nutritional screening: No deficits noted. Tuberculosis screening: No symptoms or risk factors identified. Assessment: 11:11 Reassessment: see triage assessment. mb9 12:10 Reassessment: No changes from previously documented assessment. Patient and/or family mb9 updated on plan of care and expected duration. Pain level reassessed. Patient is alert, oriented x 3, equal unlabored respirations, skin warm/dry/pink. 13:00 Reassessment: Patient and/or family updated on plan of care and expected duration. Pain mb9 level reassessed. Patient is alert, oriented x 3, equal unlabored respirations, skin warm/dry/pink. Patient states feeling better. Patient states symptoms have improved. 14:01 Reassessment: No changes from previously documented assessment. Patient and/or family mb9 updated on plan of care and expected duration. Pain level reassessed. Patient is alert, oriented x 3, equal unlabored respirations, skin warm/dry/pink. Vital Signs: 11:08 BP 165 / 65; Pulse 113; Resp 18; Temp 98.2; Pulse Ox 100% ; Weight 83.91 kg; Height 5 mb9 ft. 4 in. ; Pain 0/10; 12:12 BP 135 / 68; Pulse 109; Resp 18; Pulse Ox 99% on R/A; mb9 13:38 BP 142 / 60; Pulse 104; Resp 18; Pulse Ox 100% on R/A; mb9 14:02 BP 138 / 72; Pulse 98; Resp 18; Pulse Ox 100% on R/A; mb9 11:08 Body Mass Index 31.75 (83.91 kg, 162.56 cm) mb9 11:08 Pain Scale: Adult mb9 ED Course: 11:08 Patient arrived in ED. mb9 11:08 Anson France MD is Attending Physician. rt 11:09 Triage completed. mb9 11:10 Arm band placed on. mb9 11:11 Placed in gown. Bed in low position. Call light in reach. Side rails up X 1. Client mb9 placed on continuous cardiac and pulse oximetry monitoring. NIBP monitoring applied. monitoring specialist on. 11:12 Inessa Fontenot, RN is Primary Nurse. mb9 11:23 CBC with Diff Sent. mb9 11:23 CMP Sent. mb9 11:23 Lipase Sent. mb9 11:23 Inserted saline lock: 22 gauge in right antecubital area, using aseptic technique. mb9 Blood collected. 12:05 CT Abd/Pelvis - IV Contrast Only In Process Unspecified. EDMS 14:02 No provider procedures requiring assistance completed. IV discontinued, intact, mb9 bleeding controlled, No redness/swelling at site. Pressure dressing applied. Administered Medications: 11:23 Drug: NS 0.9% IV 1000 ml IV at 1 bolus Per protocol; 1000 mL bolus Route: IV; Rate: 1 mb9 bolus; Site: right antecubital; 11:23 Drug: Pantoprazole IVP 40 mg IVP once Route: IVP; Site: right antecubital; mb9 13:10 Follow up: Response: No adverse reaction mb9 Medication: 11:12 VIS not applicable for this client. mb9 Outcome: 13:47 Discharge ordered by . rt 14:02 Discharged to home via wheelchair, with family, mb9 14:02 Condition: stable 14:02 Discharge instructions given to patient, family, Instructed on discharge instructions, follow up and referral plans. Demonstrated understanding of instructions, follow-up care, 14:02 Patient left the ED. mb9 Signatures: Dispatcher [employer] Inessa Whiteside RN RN mb9 Anson France MD MD rt Corrections: (The following items were deleted from the chart) 12:14 12:12 BP 135 / 48; Pulse 109bpm; Resp 18bpm; Pulse Ox 99% RA; mat mb9
[2023-11-19 14:18] VITALS: BP 138/72; TEMP 98.2; O2SAT 100
== END ==
LOC: ER 11:02
DX: K91.872 Postprocedural seroma of a digestive system organ or structure following a digestive system procedure (principal); K92.1 Melena; E11.9 Type 2 diabetes mellitus without complications; I10 Essential (primary) hypertension; I50.9 Heart failure, unspecified; J44.9 Chronic obstructive pulmonary disease, unspecified; Z88.1 Allergy status to other antibiotic agents; Z95.818 Presence of other cardiac implants and grafts
CPT/HCPCS: 85025; 36415; 83690; 80053; 74177; Q9967; C9113; J7030

== ENCOUNTER → 2023-11-26 | Emergency (ER) | payer OTHER ==
[~2023-11-26] MED LIST changes: +NA CHLORIDE 0.9% 100 ML ONE; +ONDANSETRON 4 MG/2 ML VIAL ONE; -PANTOPRAZOLE 40 MG INJ ONE; +PIPERACIL/TAZO 3.375 GM VIAL IV ONE
[2023-11-26 13:30] LABS: Absolute Lymphocytes (CBC) 0.8 K/uL (0.7-4.9); Hematocrit 21.2 % (36.0-45.0); MCV 91.4 fL (80-100); Platelets 245 thou/uL (152-406); RBC Red Blood Cell Count 2.32 M/uL (3.86-4.86)
[2023-11-26 13:57] LABS: Albumin 2.9 g/dL (3.4-5.0); Protein, Total 6.3 g/dL (6.4-8.2)
--- NOTE | 2023-11-26 14:17 | RAD REPORT ---
EXAM DESCRIPTION: CTAbdomen Pelvis W Contrast - 11/26/2023 2:00 pm CLINICAL HISTORY: vomiting COMPARISON: Abdomen Pelvis W Contrast dated 11/19/2023 TECHNIQUE: CT of the abdomen and pelvis was performed. All CT scans are performed using dose optimization technique as appropriate and may include automated exposure control or mA/KV adjustment according to patient size. FINDINGS: Lower chest: Small bilateral pleural effusions. Coronary artery calcifications. Liver: Mild nodular liver contour. Perihepatic fluid. Biliary: Cholecystectomy. Stomach: No significant focal abnormality. Duodenum: No significant focal abnormality. Pancreas: Pancreatic atrophy. Spleen: No significant abnormality. Adrenal: No suspicious lesions. Kidney/ureter: No hydronephrosis. No renal calculi. Mild renal atrophy. Too small to characterize and /or benign appearing renal lesions are noted. Retroperitoneum: No retroperitoneal adenopathy. Vascular: Atherosclerosis. Left femoral-popliteal bypass. Right common femoral artery stent. Left SFA stent which is occluded. Bowel: No significant focal abnormality. Peritoneum: Large gas and fluid containing collection in the right abdominal wall has increased in si ze since 11/19/2023. This now measures 22 cm x 16.1 cm x 6.2 cm. This has some areas of mixed echogen icity. There is some fluid in the rectus sheath as well. Bladder: Grossly unremarkable. Reproductive: No adnexal masses. Bones: No acute fracture. Other: n/a IMPRESSION: Mild interval enlargement of the large right abdominal wall fluid collection status post lateral ventral hernia repair. The sterility of the collection is indeterminate. The gas could be fr om infection. No findings to suggest an underlying enterocutaneous fistula. This could represent a po stoperative seroma or abscess. No bowel obstruction. Nonspecific mild abdominopelvic free fluid.
[2023-11-26 14:25] LABS: SARS-CoV-2 Antigen Rapid Res Negative (Negative)
--- NOTE | 2023-11-26 14:30 | EDPHYS ---
Physician Documentation [facility] Name: Alyson Ibarra Age: 78 yrs Sex: Female : 1945 Arrival Date: 11/26/2023 Time: 11:52 Bed 19 Private MD: ED Physician Sheng Sykes HPI: 11/26 13:16 This 78 yrs old Female presents to ER via Wheelchair with complaints of rn Decreased Appetite, diarrhea. 13:16 The patient presents to the emergency department with diarrhea. Onset: The rn symptoms/episode began/occurred 1 week(s) ago. Possible causes: unknown. The symptoms are aggravated by nothing. The symptoms are alleviated by nothing. Associated signs and symptoms: Pertinent positives: diarrhea, Pertinent negatives: fever, GI bleeding, nausea. Severity of symptoms: At their worst the symptoms were moderate in the emergency department the symptoms are unchanged. The patient has experienced similar episodes in the past. The patient has been recently seen at the [facility] Emergency Department. Patient reports had ventral hernia repair 2 weeks ago in [place]. Since then has been having diarrhea. Denies blood in stool. No vomiting or abdominal pain. Seen here 1 week ago, found to have a seroma and possible ileus, transfer was attempted but her surgeon did not think it needed transfer at that time. Patient reports still with ongoing diarrhea. Is able to drink and keep things down without vomiting but goes right through her per patient. Called her surgeon who told her to come to the nearest emergency room for reevaluation.. Historical: - Allergies: 12:12 Cipro; iw - PMHx: 12:12 CAD; CHF; COPD; Diabetes - IDDM; Hyperlipidemia; Hypertension; neuropathy; iw - PSHx: 12:12 Heart Stents; hernia; iw - Immunization history:: Adult Immunizations up to date. - Family history:: not pertinent. - Social history:: Smoking status: Patient denies any tobacco usage or history of. - Hospitalizations: : Patient was recently seen at. ROS: 13:16 Constitutional: Negative for fever, chills, and weight loss, Eyes: Negative for injury, rn pain, redness, and discharge, Cardiovascular: Negative for chest pain, palpitations, and edema, Respiratory: Negative for shortness of breath, cough, wheezing, and pleuritic chest pain, Abdomen/GI: Negative for abdominal pain, vomiting, and constipation, MS/Extremity: Negative for injury and deformity, Skin: Negative for injury, rash, and discoloration, Neuro: Positive for generalized weakness Exam: 13:16 Constitutional: This is a well developed, well nourished patient who is awake, alert, rn and in no acute distress. Cardiovascular: Regular rate and rhythm. No pulse deficits. Respiratory: No increased work of breathing, no retractions or nasal flaring. Abdomen/GI: Soft, non-tender MS/ Extremity: Pulses equal, no cyanosis. Neuro: Awake and alert, GCS 15, strength 4 out of 5 throughout Vital Signs: 12:10 BP 145 / 82; Pulse 99; Resp 16; Temp 98.1; Pulse Ox 100% ; iw 13:00 BP 148 / 85; Pulse 94; Resp 16; Pulse Ox 100% ; cp4 14:00 BP 150 / 50; Pulse 92; Resp 18; Pulse Ox 100% ; cp4 15:00 BP 134 / 57; Pulse 94; Resp 18; Pulse Ox 100% ; cp4 16:00 BP 137 / 62; Pulse 86; Resp 18; Pulse Ox 100% ; cp4 17:00 BP 124 / 87; Pulse 84; Resp 18; Pulse Ox 100% ; cp4 MDM: 11:59 Patient medically screened. rn 13:47 ED course: Hemoglobin dropped slightly from 8-7.2 in 1 week. Patient reports was having rn black stool, not currently having black stool. Patient with history of GI bleed in the past. Denies any blood thinners.. 14:27 Differential diagnosis: Nonspecific abd pain, Seroma, infected seroma, abscess, postop rn complication, GI bleed. Data reviewed: vital signs, nurses notes, lab test result(s), radiologic studies, CT scan, and as a result, I will admit patient. Consideration of Admission/Observation Patient was admitted/placed on observation. Escalation of care including admission/observation considered. Care significantly affected by the following chronic conditions: Diabetes, Hypertension, Congestive Heart Failure, Chronic Obstructive Pulmonary Disease. Counseling: I had a detailed discussion with the patient and/or guardian regarding the historical points, exam findings, and any diagnostic results supporting the discharge/admit diagnosis, lab results, radiology results, the need for further work-up and treatment in the hospital, the need to transfer to another facility. ED course: CT shows interval enlargement of fluid collection right anterior abdominal wall, unclear if seroma versus infected seroma versus abscess. Will transfer patient back to [facility] as that is where she had her surgery 2 weeks ago.. 15:21 ED course: [facility] center notified me that Dr. Barksdale declined transfer of rn patient without doc to doc conversation or report. Spoke at length with the transfer center coordinator as I want Dr. Barksdale aware of the CT results and changes to make sure he has all the information he needs to make this decision. Transfer center will notify him and call me back. Per initial conversation transfer center stated he declined transfer and believes patient can see him in the clinic tomorrow. Given interval enlargement of fluid collection and size of it as well as CT read of possible infection I felt Dr. Alvarez conversation warranted to further discuss this case. Me in the end to be just a large seroma and gas from normal operative care but wish to have this conversation with her surgeon personally.. 16:40 ED course: Had long conversation with Dr. Barksdale, ultimately accepted for transfer. . rn 11/26 12:06 Order name: CBC with Diff; Complete Time: 13:36 rn 11/26 12:06 Order name: CMP; Complete Time: 14:22 rn 11/26 12:06 Order name: Lipase; Complete Time: 14:22 rn 11/26 12:06 Order name: Urinalysis w/ reflexes; Complete Time: 16:07 rn 11/26 12:06 Order name: SARS RAPID; Complete Time: 15:05 rn 11/26 12:06 Order name: Flu; Complete Time: 15:05 rn 11/26 12:06 Order name: CT Abd/Pelvis - IV Contrast Only; Complete Time: 14:22 rn 11/26 12:06 Order name: IV Saline Lock; Complete Time: 13:23 rn 11/26 12:06 Order name: Labs collected and sent; Complete Time: 13:23 rn 11/26 14:40 Order name: NPO; Complete Time: 15:12 rn Administered Medications: 13:35 Not Given (Patient Refused): ondansetron 4 mg IVP once; over 2 minutes cp4 14:43 Drug: Piperacillin-Tazobactam IVPB 3.375 grams IVPB once over 60 mins; (mix in NS 100 cp4 mL) Route: IVPB; Infused Over: 60 mins; Site: right antecubital; Disposition Summary: 11/26/23 14:29 Transfer Ordered Notes: Transfer Location: [facility] rn Reason: Higher level of care rn Condition: Stable rn Problem: new rn Symptoms: have worsened rn Accepting Physician: Dr. Barksdale(11/26/23 18:14) cp4 Diagnosis - Abdominal pain, unspecified rn - Abnormal findings on diagnostic imaging of other abdominal regions, including rn retroperitoneum - Fluid collection, possible abscess Forms: - Medication Reconciliation Form rn - SBAR form rn Signatures: Dispatcher [employer] EDSue Newton RN Sheng Simmons MD MD rn Potter, Christina cp4 Corrections: (The following items were deleted from the chart) 15:23 15:21 ED course: [facility] transfer center notified me that Dr. Barksdale declined governor assembler hydraulic of patient without doc to doc conversation or report. Spoke at length with the transfer center coordinator as I want Dr. Barksdale aware of the CT results and changes to make sure he has all the information he needs to make this decision. Transfer center will notify him and call me back. Per initial conversation transfer center stated he declined transfer and believes patient can see him in the clinic tomorrow.. rn 18:14 14:29 Dr. Barksdale rn cp4
--- NOTE | 2023-11-26 14:30 | ER ---
Nurse's Notes [facility] Name: Alyson Ibarra Age: 78 yrs Sex: Female : 1945 Arrival Date: 11/26/2023 Time: 11:52 Bed 19 Private MD: Diagnosis: Abdominal pain, unspecified;Abnormal findings on diagnostic imaging of other abdominal regions, including retroperitoneum-Fluid collection, possible abscess Presentation: 11/26 12:10 Chief complaint: Patient states: doctor did surgery on a hernia last Friday, got d/c iw Friday from [facility], cannot keep anything down, is having yellow liquid in stool, was told to come to ER and be transferred. Coronavirus screen: At this time, the client does not indicate any symptoms associated with coronavirus-19. Ebola Screen: Patient negative for fever greater than or equal to 101.5 degrees Fahrenheit, and additional compatible Ebola Virus Disease symptoms Patient denies exposure to infectious person. Patient denies travel to an Ebola-affected area in the 21 days before illness onset. No symptoms or risks identified at this time. Initial Sepsis Screen: Does the patient meet any 2 criteria? No. Patient's initial sepsis screen is negative. Does the patient have a suspected source of infection? No. Patient's initial sepsis screen is negative. 12:10 Method Of Arrival: Wheelchair iw 12:10 Acuity: LETY 3 iw 18:13 Risk Assessment: Do you want to hurt yourself or someone else? Patient reports no cp4 desire to harm self or others. 18:13 Onset of symptoms was November 21, 2023. cp4 Triage Assessment: 18:13 General: Appears in no apparent distress. Behavior is calm, cooperative, appropriate cp4 for age. GI: Abdomen is round non-distended, Bowel sounds present X 4 quads. Reports diarrhea. Historical: - Allergies: 12:12 Cipro; iw - PMHx: 12:12 CAD; CHF; COPD; Diabetes - IDDM; Hyperlipidemia; Hypertension; neuropathy; iw - PSHx: 12:12 Heart Stents; hernia; iw - Immunization history:: Adult Immunizations up to date. - Family history:: not pertinent. - Social history:: Smoking status: Patient denies any tobacco usage or history of. - Hospitalizations: : Patient was recently seen at. Screenin:04 [facility] ED Fall Risk Assessment (Adult) History of falling in the last 3 months, cp4 including since admission No falls in past 3 months (0 pts) Confusion or Disorientation No (0 pts) Intoxicated or Sedated No (0 pts) Impaired Gait No (0 pts) Mobility Assist Device Used No (0 pt) Altered Elimination No (0 pt) Score/Fall Risk Level 0 - 2 = Low Risk Oriented to surroundings, Maintained a safe environment, Educated pt \T\ family on fall prevention, incl call for assistance when getting out of bed, Assessed \T\ reinforced patient's understanding of fall precautions, Hourly rounding (assess needs \T\ fall precautionary measures) done. Abuse screen: Denies threats or abuse. Nutritional screening: No deficits noted. Tuberculosis screening: No symptoms or risk factors identified. Assessment: 14:04 General: Appears in no apparent distress. Behavior is calm, cooperative, appropriate cp4 for age. Pain: Denies pain. GI: Abdomen is round non-distended, Bowel sounds present X 4 quads. Reports diarrhea. Vital Signs: 12:10 BP 145 / 82; Pulse 99; Resp 16; Temp 98.1; Pulse Ox 100% ; iw 13:00 BP 148 / 85; Pulse 94; Resp 16; Pulse Ox 100% ; cp4 14:00 BP 150 / 50; Pulse 92; Resp 18; Pulse Ox 100% ; cp4 15:00 BP 134 / 57; Pulse 94; Resp 18; Pulse Ox 100% ; cp4 16:00 BP 137 / 62; Pulse 86; Resp 18; Pulse Ox 100% ; cp4 17:00 BP 124 / 87; Pulse 84; Resp 18; Pulse Ox 100% ; cp4 ED Course: 11:58 Patient arrived in ED. ra3 11:59 Sheng Sykes MD is Attending Physician. rn 12:12 Triage completed. iw 12:15 Arm band placed on. iw 13:12 Danuta Berkowitz is Primary Nurse. cp4 13:23 Flu Sent. cp4 13:23 SARS RAPID Sent. cp4 13:23 CBC with Diff Sent. cp4 13:23 CMP Sent. cp4 13:23 Lipase Sent. cp4 13:23 Urinalysis w/ reflexes Sent. cp4 13:23 No provider procedures requiring assistance completed. Inserted saline lock: 20 gauge cp4 in right antecubital area, using aseptic technique. Blood collected. 14:02 CT Abd/Pelvis - IV Contrast Only In Process Unspecified. EDMS 14:04 Bed in low position. Call light in reach. Side rails up X 1. cp4 14:49 initiated transfer to [facility]. bd 17:02 pt accepted in transfer to [facility] Yolanda ford rm [address] Barksdale admin approval bd given by Naya Washington. 18:12 Provided Education on: transfer. cp4 18:12 Patient transferred, IV remains in place. cp4 Administered Medications: 13:35 Not Given (Patient Refused): ondansetron 4 mg IVP once; over 2 minutes cp4 14:43 Drug: Piperacillin-Tazobactam IVPB 3.375 grams IVPB once over 60 mins; (mix in NS 100 cp4 mL) Route: IVPB; Infused Over: 60 mins; Site: right antecubital; Medication: 14:04 VIS not applicable for this client. cp4 Outcome: 14:29 ER care complete, transfer ordered by . rn 18:12 Transferred by ground EMS to [facility], Transfer form completed. X-rays cp4 sent w/ patient. 18:12 Condition: stable 18:12 Instructed on the need for transfer, Demonstrated understanding of instructions, follow-up care, 18:14 Patient left the ED. cp4 Signatures: Dispatcher [employer] EDMS Lyudmila Taylor Irene, RN RN iw Nieto, Roman, MD MD rn Potter, Christina cp4 Kacie Valera ra3 Corrections: (The following items were deleted from the chart) 12:14 12:10 Resp 16bpm; Pulse Ox 100%; Temp 98.1F; iw krissy
[2023-11-26 15:52] LABS: Urine Bacteria <20 /HPF (<20); Urine Bilirubin NEGATIVE (Negative); Urine Blood Negative (Negative); Urine Clarity Clear (Clear); Urine Color Light-Yellow (Yellow); Urine Glucose NEGATIVE (Negative); Urine Mucus Slight /HPF (None Seen); Urine Protein TRACE (Negative); Urine RBC <5 /HPF (None Seen); Urine Urobilinogen Normal (Normal)
[2023-11-26 15:53] LABS: Specific Gravity > 1.030 (1.005-1.030)
[2023-11-26 18:36] VITALS: BP 124/87; TEMP 98.1; O2SAT 100
== END ==
LOC: ER 11:52
DX: R93.5 Abnormal findings on diagnostic imaging of other abdominal regions, including retroperitoneum (principal); R19.7 Diarrhea, unspecified; R19.00 Intra-abdominal and pelvic swelling, mass and lump, unspecified site; R53.1 Weakness; Z98.890 Other specified postprocedural states; E11.9 Type 2 diabetes mellitus without complications; I10 Essential (primary) hypertension; I50.9 Heart failure, unspecified; Z88.1 Allergy status to other antibiotic agents; Z95.818 Presence of other cardiac implants and grafts
CPT/HCPCS: 36415; 74177; 80053; 81001; 83690; 85025; 87804; 87811; J2405; J2543; J7030; Q9967

== ENCOUNTER 2024-06-03 07:34 | Day surgery (SDC) | payer OTHER ==
[2024-05-31 16:24] LABS: Absolute Lymphocytes (CBC) 1.1 K/uL (0.7-4.9); Absolute Monocytes 0.7 K/uL (0.1-1.3); Absolute Neutrophil 1.7 K/uL (1.8-8.0); Eosinophils % 1.1 % (0-4.4); Hemoglobin 9.7 g/dL (12.0-15.0); Lymphocytes % 30.8 % (15.3-44.8); MCH 31.2 pg (27.0-35.0); MCHC 33.5 g/dL (32.0-36.0); MCV 93.1 fL (80-100); Monocytes % 19.9 % (3.3-12.3); Neutrophils % 47.2 % (41.7-73.7); Platelets 102 thou/uL (152-406); RBC Red Blood Cell Count 3.12 M/uL (3.86-4.86); Red Cell Distribution Width 13.6 % (12.1-15.2)
[2024-05-31 16:26] LABS: Anion Gap 9.5 mEq/L (5.0-15.0); Potassium 4.5 mEq/L (3.5-5.1)
[2024-05-31 16:28] LABS: Blood Morphology Comment NOT SEEN (NOT SEEN); Platelet Estimate DECR; White Blood Cell Scan OK (OK)
--- NOTE | 2024-06-01 12:41 | EKG ---
Test Date: 2024-05-31 Test Time: 14:53:35 Community Outreach Worker: ROSALIE MEASUREMENT RESULTS: Intervals: Rate: 66 IL: 210 QRSD: 98 QT: 414 QTc: 434 [place]: P: 56 IL: 210 QRS: -42 T: 126 INTERPRETIVE STATEMENTS: Sinus rhythm with marked sinus arrhythmia with 1st degree AV block with junctional escape complexes Left axis deviation Anterior infarct, age undetermined T wave abnormality, consider lateral ischemia Abnormal ECG Compared to ECG 09/29/2023 15:03:54 Junctional escape complex(es) now present Left-axis deviation now present T-wave abnormality now present ST (T wave) deviation no longer present Myocardial infarct finding still present Possible ischemia still present Electronically Signed On 06-01-24 12:38:40 CDT by Jignesh Valenzuela
[2024-06-03] MEDS ORDERED: NA CHLORIDE 0.9% 1,000 ML ONE (07:49)
[2024-06-03] MEDS ORDERED: propofoL 200 MG/20 ML VIAL IV ONE ×2 (08:09)
[2024-06-03] MEDS ORDERED: LIDOCAINE 1% MPF 30 ML VIAL ONE (08:09)
[2024-06-03] MEDS ORDERED: MIDAZOLAM HCL 2 MG/2 ML INJ ONE (09:15)
[2024-06-03 11:05] VITALS: TEMP 96.6
[2024-06-03 13:25] VITALS: BP 126/58; O2SAT 95
== END 2024-06-03 09:35 | disposition home or self-care (01) ==
LOC: OR 07:34
PROVIDERS: ATTEND Internal Medicine Gastroenterology
PROC: 0DB88ZX Excision of Small Intestine, Via Natural or Artificial Opening Endoscopic, Diagnostic (ICD-10-PCS; 2024-06-03)
PROC: 0DB78ZX Excision of Stomach, Pylorus, Via Natural or Artificial Opening Endoscopic, Diagnostic (ICD-10-PCS; 2024-06-03)
PROC: 0DB68ZX Excision of Stomach, Via Natural or Artificial Opening Endoscopic, Diagnostic (ICD-10-PCS; principal; 2024-06-03 08:30)
DX: K29.50 Unspecified chronic gastritis without bleeding (principal); K31.89 Other diseases of stomach and duodenum; D50.9 Iron deficiency anemia, unspecified; R63.4 Abnormal weight loss; R63.0 Anorexia; R10.84 Generalized abdominal pain; R53.83 Other fatigue; K59.1 Functional diarrhea; Q27.33 Arteriovenous malformation of digestive system vessel
CPT/HCPCS: 93005; 85025; 80048; 36415; 88312; 82947 ×2; 88305; 43239; J2704; J2001; J7030; J2250

== ENCOUNTER 2024-06-21 13:37 | Emergency (ER) | payer OTHER ==
[2024-06-21] MEDS ORDERED: HYDROCODONE/APAP 7.5/325 MG TAB ONE (14:08)
--- NOTE | 2024-06-21 15:45 | RAD REPORT ---
EXAMINATION: UPPER EXTREMITY VENOUS UNILATE CLINICAL INDICATION: Female, 78 years old. [facility] MAIN Pain;Swelling Bed Name: 9 TECHNIQUE: Complete venous duplex sonography of the left upper extremity was performed. The examinati on included compression for vein patency, color Doppler imaging and flow augmentation in response to distal compression of the internal jugular, brachiocephalic, subclavian, axillary, brachial, radia l, ulnar, cephalic and basilic veins. COMPARISON: No prior exam. FINDINGS: Duplex sonography testing of the veins of the left upper extremity is completed. Color flow imaging s hows all veins to be compressible with appropriate color filling. Pulsatile and phasic flow is present within the upper extremity deep and superficial veins examined. IMPRESSION: There is no deep vein or superficial vein thrombosis.
--- NOTE | 2024-06-21 15:55 | ER ---
Nurse's Notes [facility] Name: Alyson Ibarra Age: 78 yrs Sex: Female : 1945 Arrival Date: 06/21/2024 Time: 13:37 Bed 9 Private MD: Diagnosis: Pain in left arm Presentation: 06/21 13:50 Chief complaint: Patient states: Left arm pain and swelling onset 2 days ago. pt cm10 reports that this started after they tried to draw labs from that arm. Coronavirus screen: Client denies travel out of the [place] in the last 14 days. At this time, the client does not indicate any symptoms associated with coronavirus-19. Ebola Screen: Patient denies travel to an Ebola-affected area in the 21 days before illness onset. No symptoms or risks identified at this time. Initial Sepsis Screen: Does the patient meet any 2 criteria? No. Patient's initial sepsis screen is negative. Does the patient have a suspected source of infection? No. Patient's initial sepsis screen is negative. Risk Assessment: Do you want to hurt yourself or someone else? Patient reports no desire to harm self or others. Onset of symptoms was June 19, 2024. 13:50 Method Of Arrival: Wheelchair cm10 13:50 Acuity: LETY 4 cm10 Triage Assessment: 13:52 General: Appears in no apparent distress. comfortable, Behavior is calm, cooperative. cm10 Neuro: No deficits noted. Level of Consciousness is awake, alert, obeys commands, Oriented to person, place, time, situation, Appropriate for age. Respiratory: No deficits noted. Airway is patent Respiratory effort is even, unlabored, Respiratory pattern is regular, symmetrical. Historical: - Allergies: 13:51 Cipro; cm10 - PMHx: 13:51 CAD; COPD; Diabetes - IDDM; CHF; Hyperlipidemia; Hypertension; neuropathy; cm10 - PSHx: 13:51 Heart Stents; hernia; cm10 - Immunization history:: Adult Immunizations up to date. - Infectious Disease History:: Denies. - Social history:: Smoking status: Patient denies any tobacco usage or history of. Screenin:14 [facility] ED Fall Risk Assessment (Adult) History of falling in the last 3 months, mb9 including since admission No falls in past 3 months (0 pts) Confusion or Disorientation No (0 pts) Intoxicated or Sedated No (0 pts) Impaired Gait No (0 pts) Mobility Assist Device Used No (0 pt) Altered Elimination No (0 pt) Score/Fall Risk Level 0 - 2 = Low Risk Oriented to surroundings, Maintained a safe environment, Educated pt \T\ family on fall prevention, incl call for assistance when getting out of bed. Abuse screen: Denies threats or abuse. Nutritional screening: No deficits noted. Tuberculosis screening: No symptoms or risk factors identified. Assessment: 14:13 General: Appears in no apparent distress. Behavior is calm, cooperative. Pain: mb9 Complains of pain in left arm Pain does not radiate. Pain currently is 8 out of 10 on a pain scale. Quality of pain is described as throbbing. Neuro: Portillo Agitation-Sedation Scale (RASS): 0 - Alert and Calm. Cardiovascular: Patient's skin is warm and dry. Respiratory: Airway is patent. GI: No signs and/or symptoms were reported involving the gastrointestinal system. : No signs and/or symptoms were reported regarding the genitourinary system. EENT: No signs and/or symptoms were reported regarding the EENT system. Derm: Skin is pink, warm \T\ dry. Musculoskeletal: Range of motion: intact in all extremities. 16:05 Reassessment: Patient and/or family updated on plan of care and expected duration. Pain mb9 level reassessed. Patient is alert, oriented x 3, equal unlabored respirations, skin warm/dry/pink. Patient states feeling better. Patient states symptoms have improved. Vital Signs: 13:50 BP 155 / 68; Pulse 79; Resp 16; Temp 97.1(IR); Pulse Ox 98% on R/A; Weight 70.76 kg; cm10 Height 5 ft. 4 in. ; Pain 10/10; 16:05 BP 143 / 71; Pulse 70; Resp 18; Pulse Ox 100% on R/A; mb9 13:50 Body Mass Index 26.78 (70.76 kg, 162.56 cm) cm10 13:50 Pain Scale: Adult cm10 ED Course: 13:41 Patient arrived in ED. im 13:51 Triage completed. cm10 13:52 Arm band placed on Patient placed in an exam room, on a stretcher. cm10 13:54 Beena Lopez PA-C is PHCP. sb4 13:54 Sheng Sykes MD is Attending Physician. sb4 13:58 Inessa Keyes, RN is Primary Nurse. mb9 14:14 No provider procedures requiring assistance completed. Patient did not have IV access mb9 during this emergency room visit. 14:15 Bed in low position. Call light in reach. Side rails up X 1. Provided Education on: mb9 press call light if needing anything. Client placed on continuous cardiac and pulse oximetry monitoring. NIBP monitoring applied. 14:49 UPPER EXTREMITY VENOUS UNILATE In Process Unspecified. EDMS Administered Medications: 14:13 Drug: Hydrocodone-Acetaminophen PO (7.5 mg-325 mg) 1 tabs PO once Route: PO; mb9 14:49 Follow up: Response: No adverse reaction mb9 Medication: 14:15 VIS not applicable for this client. mb9 Outcome: 15:54 Discharge ordered by MD. sb4 16:05 Discharged to home ambulatory, with family, mb9 16:05 Condition: stable 16:05 Discharge instructions given to patient, family, Instructed on discharge instructions, follow up and referral plans. Demonstrated understanding of instructions, follow-up care, medications, Prescriptions given X 2, 16:05 Patient left the ED. mb9 Signatures: Dispatcher [employer] EDMS Beena Lopez PA-C PA-C sb4 Inessa Keyes, RN RN mb9 Scarlett Hall Clarissa, RN RN cm10 Corrections: (The following items were deleted from the chart) 13:51 13:50 Onset of symptoms was June 21, 2024 cm10 cm10
--- NOTE | 2024-06-21 15:55 | EDPHYS ---
Physician Documentation [facility] Name: Alyson Ibarra Age: 78 yrs Sex: Female : 1945 Arrival Date: 06/21/2024 Time: 13:37 Bed 9 Private MD: ED Physician Sheng Sykes HPI: 06/21 13:54 This 78 yrs old Female presents to ER via Wheelchair with complaints of Arm sb4 Pain - left. 14:12 The patient or guardian complains of pain, swelling. Patient states that she had sb4 routine blood work done in her left wrist about 1 week ago and she has had pain and swelling in her arm ever since, especially in her shoulder and neck. Her son has also noticed some bruising along the course of her arm. She reports history of blood clots in her legs in which she has had several stents. She is not on any blood thinners, only baby aspirin. Historical: - Allergies: 13:51 Cipro; cm10 - PMHx: 13:51 CAD; COPD; Diabetes - IDDM; CHF; Hyperlipidemia; Hypertension; neuropathy; cm10 - PSHx: 13:51 Heart Stents; hernia; cm10 - Immunization history:: Adult Immunizations up to date. - Infectious Disease History:: Denies. - Social history:: Smoking status: Patient denies any tobacco usage or history of. ROS: 14:12 Constitutional: Negative for fever, chills, and weight loss, sb4 14:12 MS/extremity: Positive for pain, swelling, of the left arm, 14:12 All other systems are negative, Exam: 14:12 Constitutional: This is a well developed, well nourished patient who is awake, alert, sb4 and in no acute distress. Head/Face: Normocephalic, atraumatic. Eyes: Extra-ocular motions intact. Periorbital areas with no swelling, redness, or edema. ENT: Mucous membranes moist. 14:12 Skin: bruising along the anterior forearm consistent with venous pattern. Vital Signs: 13:50 BP 155 / 68; Pulse 79; Resp 16; Temp 97.1(IR); Pulse Ox 98% on R/A; Weight 70.76 kg; cm10 Height 5 ft. 4 in. ; Pain 10/10; 16:05 BP 143 / 71; Pulse 70; Resp 18; Pulse Ox 100% on R/A; mb9 13:50 Body Mass Index 26.78 (70.76 kg, 162.56 cm) cm10 13:50 Pain Scale: Adult cm10 MDM: 13:54 Patient medically screened. sb4 15:54 Data reviewed: vital signs, nurses notes, radiologic studies, and as a result, I will sb4 discharge patient. Counseling: I had a detailed discussion with the patient and/or guardian regarding the historical points, exam findings, and any diagnostic results supporting the discharge/admit diagnosis, radiology results, to return to the emergency department if symptoms worsen or persist or if there are any questions or concerns that arise at home. 06/21 14:10 Order name: UPPER EXTREMITY VENOUS UNILATE; Complete Time: 15:50 EDME 06/21 15:54 Order name: Sling; Complete Time: 15:54 sb4 Administered Medications: 14:13 Drug: Hydrocodone-Acetaminophen PO (7.5 mg-325 mg) 1 tabs PO once Route: PO; mb9 14:49 Follow up: Response: No adverse reaction mb9 Disposition: 17:43 Co-signature as Attending Physician, Sheng Sykes MD I reviewed the patient's care rn provided by the Advanced Practice Provider and agree with the diagnosis and treatment plan. Disposition Summary: 06/21/24 15:54 Discharge Ordered Notes: Location: Home sb4 Problem: new sb4 Symptoms: have improved sb4 Condition: Stable sb4 Diagnosis - Pain in left arm sb4 Followup: sb4 - With: Private Physician - When: 1 week - Reason: Recheck today's complaints, Re-evaluation by your physician Discharge Instructions: - Discharge Summary Sheet sb4 - Shoulder Pain, [id number] sb4 - Phlebitis, [id number] sb4 Forms: - Patient Portal Instructions sb4 - Leadership Thank You Letter sb4 Prescriptions: - terbinafine HCl 250 mg Oral tablet - take 1 tablet ORAL route daily for 2 wks; 14 tablet; Refills: 0, Product sb4 Selection Permitted - Diclofenac Sodium 75 mg Oral tablet, delayed release (enteric coated) - take 1 tablet ORAL route 2 times per day for 7 days; 14 tablet; Refills: 0, sb4 Product Selection Permitted Signatures: Dispatcher [employer] EDME Sheng Sykes MD MD rn Brown, Sophia, PA-C PAYvan sb4 Inessa Keyes, RN RN mb9 Barbara Asencio RN RN cm10 Corrections: (The following items were deleted from the chart) 14:08 14:06 Extremity Venous [email or web address] ordered. EDMS EDMS
[2024-06-21 16:11] VITALS: TEMP 97.1
[2024-06-21 16:13] VITALS: BP 143/71; O2SAT 100
== END 2024-06-21 16:05 | disposition home or self-care (01) ==
LOC: ER 13:37
DX: M79.602 Pain in left arm (principal)
CPT/HCPCS: 93971; 99283

== ENCOUNTER 2024-07-05 09:45 | Inpatient (IN) | payer OTHER ==
[2024-07-05 10:35] LABS: Absolute Basophils 0.1 K/uL (0-0.5); Absolute Lymphocytes (CBC) 0.7 K/uL (0.7-4.9); Absolute Monocytes 1.2 K/uL (0.1-1.3); Absolute Neutrophil 4.7 K/uL (1.8-8.0); Basophils % 1.1 % (0-1.3); Eosinophils % 0.4 % (0-4.4); Hematocrit 27.2 % (36.0-45.0); Hemoglobin 9.3 g/dL (12.0-15.0); Lymphocytes % 10.7 % (15.3-44.8); MCH 30.6 pg (27.0-35.0); MCHC 34.1 g/dL (32.0-36.0); MCV 89.7 fL (80-100); MPV 8.4 fL (7.6-11.3); Monocytes % 17.7 % (3.3-12.3); Neutrophils % 70.1 % (41.7-73.7); Platelets 182 thou/uL (152-406); RBC Red Blood Cell Count 3.04 M/uL (3.86-4.86)
[2024-07-05 10:40] LABS: PT Prothrombin Time 15.9 SECONDS (9.4-12.5); Protime INR 1.43
[2024-07-05 10:57] LABS: Albumin/Globulin Ratio 0.8 (1.1-1.8); Anion Gap 8.4 mEq/L (5.0-15.0); Bilirubin Direct 0.2 mg/dL (0-0.2); Bilirubin Indirect, Calculated 0.3 mg/dL (0.2-0.8); Bilirubin Total 0.5 mg/dL (0.2-1.0); Globulin 3.8 g/dL (2.3-3.5); Potassium 4.4 mEq/L (3.5-5.1); Protein, Total 6.8 g/dL (6.4-8.2); Troponin High Sensitivity 17.1 pg/mL (<58.9)
--- NOTE | 2024-07-05 11:48 | RAD REPORT ---
EXAMINATION: ONE VIEW CHEST XR CLINICAL INDICATION: Female, 78 years old.,DYSPNEA TECHNIQUE: Frontal chest projection is submitted. Examination is limited by patient positioning and t echnique. COMPARISON: 09/29/2023 chest radiograph. 11/26/2023 CT abdomen and pelvis FINDINGS: Left basilar consolidation, possibly within an element of small to moderate effusion. Hazy right basi lar opacification with small layering effusion. Findings are new since the prior x-ray, although elements of diffusion were seen on a prior abdominal CT. No pneumothorax. The heart is normal in siz e, with sequelae of CABG. IMPRESSION: Bibasilar airspace opacities and effusions, with fusion volume larger on the left. Findings may refle ct sequelae of pulmonary edema or multifocal pneumonia.
[2024-07-05] MEDS ORDERED: FUROSEMIDE 20 MG/ 2ML VIAL ONE (11:49)
--- NOTE | 2024-07-05 11:57 | EDPHYS ---
Physician Documentation [facility] Name: Alyson Ibarra Age: 78 yrs Sex: Female : 1945 Arrival Date: 07/05/2024 Time: 09:45 Bed 16 Private MD: ED Physician Sheng Sykes HPI: 07/05 10:04 This 78 yrs old Female presents to ER via Wheelchair with complaints of rn Breathing Difficulty. 10:04 The patient has shortness of breath with light activity. Onset: The symptoms/episode rn began/occurred at an unknown time. Duration: The symptoms are intermittent. The patient's shortness of breath is aggravated by exertion, light activity, supine position, talking, walking, is alleviated by rest, sitting up. Severity of symptoms: At their worst the symptoms were moderate in the emergency department the symptoms are unchanged. The patient has experienced similar episodes in the past. The patient has been recently seen by a physician:. Patient reports shortness of breath, worse with exertion and supine position. Reports turpin phlegm. No fever or chills. Seen recently by Dr. Dia and told to follow-up with Dr. david Domingoke because she has "leaky valve". Patient reports months of progressive dyspnea. No trauma. Patient only takes aspirin, nothing stronger. Has history of cardiac bypass and stents. Does not take any diuretics.. Historical: - Allergies: 09:55 Cipro; bp - PMHx: 09:55 neuropathy; Hypertension; Hyperlipidemia; Diabetes - IDDM; COPD; CHF; CAD; bp - PSHx: 09:55 hernia; Heart Stents; bp - Immunization history:: Adult Immunizations up to date. - Infectious Disease History:: Denies. - Social history:: Smoking status: Patient denies any tobacco usage or history of. - Family history:: not pertinent. - Hospitalizations: : No recent hospitalization is reported. ROS: 10:04 Constitutional: Negative for fever, chills, and weight loss, Eyes: Negative for injury, rn pain, redness, and discharge, Neck: Negative for injury, pain, and swelling, Cardiovascular: Negative for chest pain, palpitations, and edema, Respiratory: Positive for shortness of breath Abdomen/GI: Negative for abdominal pain, nausea, vomiting, diarrhea, and constipation, MS/Extremity: Negative for injury and deformity, Skin: Negative for injury, rash, and discoloration, Neuro: Negative for headache, weakness, numbness, tingling, and seizure, Exam: 10:04 Constitutional: This is a well developed, well nourished patient who is awake, alert, rn mild tachypnea ENT: No stridor Cardiovascular: Tachycardic, regular. No pulse deficits. Respiratory: Mild tachypnea, crackles bilateral bases Abdomen/GI: Soft, nontender MS/ Extremity: No peripheral edema noted Neuro: Awake and alert, GCS 15 11:30 ECG was reviewed by the Attending Physician. rn Vital Signs: 09:54 BP 134 / 83; Pulse 112; Resp 20; Temp 98; Pulse Ox 93% on R/A; bp 11:00 BP 146 / 71; Pulse 91; Resp 19; Pulse Ox 95% on R/A; cm10 11:30 BP 140 / 67; Pulse 90; Resp 22; Pulse Ox 97% on R/A; cm10 12:30 BP 150 / 65; Pulse 90; Resp 16; Pulse Ox 95% ; cm10 14:01 BP 147 / 80; Pulse 107; Resp 22; Pulse Ox 96% on R/A; cm10 MDM: 09:50 Patient medically screened. rn 11:55 Differential diagnosis: Anemia CHF exacerbation, Chronic Obstructive Pulmonary Disease rn Myocardial Infarction Pneumothorax pulmonary edema. Data reviewed: vital signs, nurses notes, lab test result(s), EKG, radiologic studies, plain films, and as a result, I will admit patient. Consideration of Admission/Observation Patient was admitted/placed on observation. Escalation of care including admission/observation considered. Counseling: I had a detailed discussion with the patient and/or guardian regarding the historical points, exam findings, and any diagnostic results supporting the discharge/admit diagnosis, lab results, radiology results, the need for further work-up and treatment in the hospital. 11:56 ED course: Patient most likely with congestive heart failure exacerbation. Chest x-ray rn shows pulmonary edema with left pleural effusion per my interpretation. Will admit to hospitalist service for diuresis and further workup with cardiology consultation.. 07/05 10:01 Order name: Basic Metabolic Panel; Complete Time: 10:59 rn 07/05 10:01 Order name: CBC with Diff; Complete Time: 10:59 rn 07/05 10:01 Order name: LFT's; Complete Time: 10:59 rn 07/05 10:01 Order name: NT PRO-BNP; Complete Time: 10:59 rn 07/05 10:01 Order name: PT-INR; Complete Time: 10:59 rn 07/05 10:01 Order name: Troponin HS; Complete Time: 11:00 rn 07/05 10:48 Order name: CREATININE WHOLE BLOOD; Complete Time: 11:00 EDSD 07/05 11:54 Order name: Lactate w/ 2H reflex if indic. rn 07/05 11:54 Order name: Blood Culture Adult (2) rn 07/05 12:12 Order name: Urinalysis w/ reflexes EDMS 07/05 12:12 Order name: Basic Metabolic Panel EDMS 07/05 12:12 Order name: Basic Metabolic Panel EDMS 07/05 12:13 Order name: Basic Metabolic Panel EDMS 07/05 12:13 Order name: Basic Metabolic Panel EDMS 07/05 12:13 Order name: Basic Metabolic Panel EDMS 07/05 12:13 Order name: CBC with Automated Diff EDMS 07/05 12:13 Order name: CBC with Automated Diff EDMS 07/05 12:13 Order name: CBC with Automated Diff EDMS 07/05 12:13 Order name: CBC with Automated Diff EDMS 07/05 12:13 Order name: CBC with Automated Diff EDMS 07/05 12:13 Order name: Magnesium EDMS 07/05 12:13 Order name: Magnesium EDMS 07/05 12:13 Order name: Magnesium EDMS 07/05 12:13 Order name: Magnesium EDMS 07/05 12:13 Order name: Magnesium EDMS 07/05 12:13 Order name: NT PRO-BNP EDMS 07/05 12:13 Order name: NT PRO-BNP EDMS 07/05 12:13 Order name: NT PRO-BNP EDMS 07/05 12:13 Order name: NT PRO-BNP EDMS 07/05 12:13 Order name: NT PRO-BNP EDMS 07/05 10:01 Order name: XRAY Chest (1 view); Complete Time: 11:53 rn 07/05 10:01 Order name: EKG; Complete Time: 10:01 rn 07/05 10:01 Order name: Cardiac monitoring; Complete Time: 10:25 rn 07/05 10:01 Order name: EKG - Nurse/Tech; Complete Time: 10:41 rn 07/05 10:01 Order name: IV Saline Lock; Complete Time: : rn 07/05 10: Order name: Labs collected and sent; Complete Time: rn 07/05 10: Order name: O2 Per Protocol; Complete Time: rn 07/05 10:01 Order name: O2 Sat Monitoring; Complete Time: : rn EC:30 Rate is 106 beats/min. Rhythm is regular. QRS [place] is Normal. MI interval is normal. rn QRS interval is normal. QT interval is normal. No Q waves. T waves are Inverted in leads V5, V6. No ST changes noted. Clinical impression: Sinus tachycardia. Interpreted by me. Reviewed by me. Administered Medications: 11:57 Drug: Furosemide IVP 20 mg IVP once; give over 2 minutes Route: IVP; Site: left forearm;cm10 12:30 Follow up: Response: No adverse reaction cm10 13:29 Drug: Rocephin IV 1 grams IV at calculated rate once; Given slow IV push per pharmacy cm10 instructions Route: IV; Rate: calculated rate; Site: right antecubital; 13:48 Follow up: Response: No adverse reaction; IV Status: Completed infusion; IV Intake: [id number] 13:48 Drug: Zithromax IVPB 500 mg IVPB once over 1 hrs; mix in 250 mL NS Route: IVPB; Infused cm10 Over: 1 hrs; Site: right antecubital; 14:01 Follow up: Response: No adverse reaction; IV Status: Infusion continued upon admission cm10 Disposition Summary: 07/05/24 11:57 Hospitalization Ordered Notes: Hospitalization Status: Inpatient Admission rn Provider: Jaciel Rain [facility]n [facility] Condition: Stable rn Problem: new rn Symptoms: have improved rn Bed/Room Type: Standard rn Room Assignment: 408(07/05/24 12:16) bd Diagnosis - Unspecified combined systolic (congestive) and diastolic (congestive) heart failure rn - Acute pulmonary edema rn - Dyspnea, unspecified rn Forms: - Medication Reconciliation Form rn - SBAR form rn - Leadership Thank You Letter rn Signatures: Dispatcher [employer] EDLyudmila Childers Roman, MD MD rn Peltier, Brian, RN RN bp Martinez, Clarissa, RN RN cm10 Corrections: (The following items were deleted from the chart) 12:16 11:57 rn bd
--- NOTE | 2024-07-05 11:57 | ER ---
Nurse's Notes [facility] Name: Alyson Ibarra Age: 78 yrs Sex: Female : 1945 Arrival Date: 07/05/2024 Time: 09:45 Bed 16 Private MD: Diagnosis: Unspecified combined systolic (congestive) and diastolic (congestive) heart failure;Acute pulmonary edema;Dyspnea, unspecified Presentation: 07/05 09:54 Chief complaint: Patient states: "HER HEART IS LEAKING BLOOD AND SHE CAN'T CATCH HER bp BREATH, DR JANG WANTS HER TO HAVE OPEN HEART SURGERY TOMORROW.". Coronavirus screen: At this time, the client does not indicate any symptoms associated with coronavirus-19. Ebola Screen: No symptoms or risks identified at this time. Initial Sepsis Screen: Does the patient meet any 2 criteria? HR > 90 bpm. No. Patient's initial sepsis screen is negative. Does the patient have a suspected source of infection? No. Patient's initial sepsis screen is negative. Risk Assessment: Do you want to hurt yourself or someone else? Patient reports no desire to harm self or others. Onset of symptoms is unknown. 09:54 Method Of Arrival: Wheelchair bp 09:54 Acuity: LETY 3 bp Triage Assessment: 14:02 General: Appears in no apparent distress. comfortable, Behavior is calm, cooperative. cm10 Respiratory: Reports shortness of breath Onset: The symptoms/episode began/occurred gradually, the patient has mild shortness of breath. Historical: - Allergies: 09:55 Cipro; bp - PMHx: 09:55 neuropathy; Hypertension; Hyperlipidemia; Diabetes - IDDM; COPD; CHF; CAD; bp - PSHx: 09:55 hernia; Heart Stents; bp - Immunization history:: Adult Immunizations up to date. - Infectious Disease History:: Denies. - Social history:: Smoking status: Patient denies any tobacco usage or history of. - Family history:: not pertinent. - Hospitalizations: : No recent hospitalization is reported. Screenin:33 [facility] ED Fall Risk Assessment (Adult) History of falling in the last 3 months, cm10 including since admission No falls in past 3 months (0 pts) Confusion or Disorientation No (0 pts) Intoxicated or Sedated No (0 pts) Impaired Gait No (0 pts) Mobility Assist Device Used No (0 pt) Altered Elimination No (0 pt) Score/Fall Risk Level 0 - 2 = Low Risk Oriented to surroundings, Maintained a safe environment, Hourly rounding (assess needs \\T\\ fall precautionary measures) done. Abuse screen: Denies threats or abuse. Denies injuries from another. Nutritional screening: No deficits noted. Tuberculosis screening: No symptoms or risk factors identified. Assessment: 11:00 General: Appears in no apparent distress. comfortable, Behavior is calm, cooperative, cm10 appropriate for age. Pain: Complains of pain in chest. Neuro: No deficits noted. Level of Consciousness is awake, alert, obeys commands, Oriented to person, place, time, situation, Appropriate for age. Cardiovascular: Heart tones present Patient's skin is warm and dry. Rhythm is sinus rhythm. Respiratory: No deficits noted. Airway is patent Respiratory effort is even, unlabored, Respiratory pattern is regular, symmetrical, Breath sounds are diminished bilaterally. 12:49 General: Pt refusing blood cultures and lactic draw. Pt educated on the importance of cm10 drawing labs. Dr. Sykes at bedside speaking with patient.. 14:00 Reassessment: Patient appears in no apparent distress at this time. Patient and/or cm10 family updated on plan of care and expected duration. Pain level reassessed. Patient is alert, oriented x 3, equal unlabored respirations, skin warm/dry/pink. Vital Signs: 09:54 BP 134 / 83; Pulse 112; Resp 20; Temp 98; Pulse Ox 93% on R/A; bp 11:00 BP 146 / 71; Pulse 91; Resp 19; Pulse Ox 95% on R/A; cm10 11:30 BP 140 / 67; Pulse 90; Resp 22; Pulse Ox 97% on R/A; cm10 12:30 BP 150 / 65; Pulse 90; Resp 16; Pulse Ox 95% ; cm10 14:01 BP 147 / 80; Pulse 107; Resp 22; Pulse Ox 96% on R/A; cm10 ED Course: 09:47 Patient arrived in ED. ra3 09:50 Sheng Sykes MD is Attending Physician. rn 09:55 Triage completed. bp 09:55 Arm band placed on. bp 10:06 Sue Tafoya, RN is Primary Nurse. iw 10:27 Initial lab(s) drawn, by me, sent to lab. Inserted saline lock: 22 gauge in right iw forearm, using aseptic technique. Blood collected. Flushed with 10 mL NS. 10:41 Primary Nurse role handed off by Sue Tafoya RN cm10 10:41 Barbara Asencio, LINO is Primary Nurse. cm10 10:41 EKG done, by ED staff, reviewed by Sheng Sykes MD. cm10 11:00 Patient has correct armband on for positive identification. Bed in low position. Call cm10 light in reach. Side rails up X2. Provided Education on: ER process and procedures.. Client placed on continuous cardiac and pulse oximetry monitoring. NIBP monitoring applied. secured entrance monitor on. 11:25 XRAY Chest (1 view) In Process Unspecified. EDMS 11:56 Jaciel Rain MD is Hospitalizing Provider. rn 12:26 1226 CM met with , her son Faustino and her daughter in law at the bedside ane in the ED exam room. Patient identified by name and . states she lives with her son in a single story home. She reports that prior to admission, she performs ADLs independently with the occasional use of a walker or wheelchair if she is feeling ill. Other DME in the home includes, a nebulizer, shower chair and an oxygen concentrator that "I have had since I had covid in 2020. Patient reports she uses the oxygen at 2L PRN. Patient reports she does not have HH, or other medical services at this time. Patient does not have an MPOA in place and does not wish to complete one at this time. Her discharge plan is to return home and Faustino will be available to transport her back home. CM team will continue to follow and coordinate care during this hospital stay. 13:22 Accessed peripheral vein via ultrasound, utilizing dynamic ultrasound technique Blood cm10 collected. Clean \\T\\ dry. Dressing intact. Good blood return. Flushes easily. 22g Right AC. 13:36 Report faxed at 1331. Zahra confirmed at 1332 that fax was received. cm10 14:02 No provider procedures requiring assistance completed. Patient admitted, IV remains in cm10 place. Administered Medications: 11:57 Drug: Furosemide IVP 20 mg IVP once; give over 2 minutes Route: IVP; Site: left forearm;cm10 12:30 Follow up: Response: No adverse reaction cm10 13:29 Drug: Rocephin IV 1 grams IV at calculated rate once; Given slow IV push per pharmacy cm10 instructions Route: IV; Rate: calculated rate; Site: right antecubital; 13:48 Follow up: Response: No adverse reaction; IV Status: Completed infusion; IV Intake: 96mgml12 13:48 Drug: Zithromax IVPB 500 mg IVPB once over 1 hrs; mix in 250 mL NS Route: IVPB; Infused cm10 Over: 1 hrs; Site: right antecubital; 14:01 Follow up: Response: No adverse reaction; IV Status: Infusion continued upon admission cm10 Medication: 11:33 VIS not applicable for this client. cm10 Intake: 13:48 IV: 50ml; Total: 50ml. cm10 Outcome: 11:57 Decision to Hospitalize by Provider. rn 14:02 Admitted to Tele accompanied by nurse, via wheelchair, room 408, cm10 14:02 Condition: good 14:02 Instructed on the need for admit, 14:03 Patient left the ED. cm10 Signatures: Dispatcher [employer] Sue Valadez, RN Sheng Simmons MD MD rn Peltier, Brian, RN RN bp Martinez, Clarissa, RN RN 10 Kacie Valera Andie, RN RN ane
--- NOTE | 2024-07-05 12:06 | P.HP ---
Certification for Inpatient Patient admitted to: Inpatient With expected LOS: <2 Midnights <Yahaira South - Last Filed: 07/05/24 14:56> Patient History Date of Service: 07/05/24 Reason for admission: Acute on chronic heart failure History of Present Illness: 78-year-old female with a past medical history of chronic systolic congestive heart failure, COPD, insulin-dependent diabetes, CAD with previous CABG, hypertension, hyperlipidemia, CKD 3 presents to the emergency department with shortness of breath. She reports shortness of breath is worse with exertion, worse while lying flat. She reports pleurisy right pleuritic chest pain with with inspiration. 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 No reported edema, fever, dizziness, plan to admit for acute on chronic combined systolic and diastolic congestive heart failure, acute pulmonary edema, dyspnea. With cardiology to consult - Past Medical/Surgical History Diabetic: Yes -: Hypertension -: Chronic systolic congestive heart failure -: IDDM -: neuropathy -: hyperlipidemia -: CAD -: [place] -: COPD -: cardiac catheterization -: Coronary artery bypass grafting -: Bilateral knee surgery Psychosocial/ Personal History: Patient lives at home with family - Family History Mother -: Diabetes Father -: Diabetes Notes: neuropathy - Social History Alcohol use: No CD- Drugs: No Caffeine use: No <Yahaira South - Last Filed: 07/05/24 14:56> Date of Service: 07/05/24 <Irene Winn - Last Filed: 07/05/24 17:20> Allergies ciprofloxacin [From Cipro] Allergy (Intermediate, Verified 06/03/24 09:58) Itching Home Medications: Insulin Glargine Human [Lantus*] 12 units SQ BID 05/09/18 Albuterol Inhaler [Ventolin Inhaler*] 2 puff IH Q6H PRN 08/28/22 Furosemide [Lasix*] 40 mg PO DAILY 08/28/22 Aspirin Chewable [Aspirin Chewable*] 81 mg PO DAILY #30 tab.chew 09/03/22 Ipratropium Neb [Atrovent*] 0.5 mg NEB [id number] #60 amp 09/03/22 Atorvastatin Calcium [Lipitor] 40 mg PO BEDTIME 10/10/22 Albuterol Neb [Proventil 0.083% Neb Soln] 2.5 mg NEB [id number] PRN #60 amp 10/18/22 Cyanocobalamin (Vitamin B-12) [Vitamin B12] 5,000 mcg SL DAILY #30 tab 10/18/22 Metoprolol Tartrate 25 mg PO BID #60 tab 10/01/23 Tirzepatide [Mounjaro] 5 mg SQ EVERY 7TH DAY 05/31/24 Review of Systems Per HPI <Yahaira South - Last Filed: 07/05/24 14:56> Physical Examination - Physical Exam General: Alert, Oriented x3, Mild distress HEENT: Normocephalic, PERRLA Neck: 2+ carotid pulse no bruit, JVD not distended Respiratory: Crackles/rales, Rhonchi/gurgles Cardiovascular: Normal pulses, Regular rate/rhythm Capillary refill: <2 Seconds Gastrointestinal: Normal bowel sounds, Soft and benign Musculoskeletal: No swelling, No contractures - Studies Laboratory Data (last 24 hrs) 07/05/24 07/05/24 07/05/24 10:24 10:24 10:24 WBC 6.70 Hgb 9.3 L Hct 27.2 L Plt Count 182 PT 15.9 H INR 1.43 Sodium 138 Potassium 4.4 BUN 19 H Creatinine 1.10 H Glucose 176 H Total Bilirubin 0.5 AST 18 ALT 22 Alkaline Phosphatase 103 <Yahaira South - Last Filed: 07/05/24 14:56> - Studies Laboratory Data (last 24 hrs) 07/05/24 07/05/24 07/05/24 10:24 10: 10:24 WBC 6.70 Hgb 9.3 L Hct 27.2 L Plt Count 182 PT 15.9 H INR 1.43 Sodium 138 Potassium 4.4 BUN 19 H Creatinine 1.10 H Glucose 176 H Total Bilirubin 0.5 AST 18 ALT 22 Alkaline Phosphatase 103 <Irene Winn - Last Filed: 07/05/24 17:20> Assessment and Plan - Plan Assessment plan Acute on chronic diastolic heart failure Elevated BNP Pulmonary edema Cardiology consult Telemetry Trend BNP, diuretics, resume home meds Daily weight Azithromycin, ceftriaxone EKG sinus tachycardia rate 106, inverted T waves V5 V6, no ST changes, Diabetes mellitus type 2insulin-dependent with hyperglycemia Accu-Cheks, sliding scale insulin, resume home meds CAD with previous CABG Hypertension Hyperlipidemia COPD Resume home meds - Advance Directives Does patient have a Living Will: No Does patient have a Durable POA for Healthcare: No - Code Status/Comfort Care Code Status Assessed: Yes (Full code) Critical Care: No Time Spent Managing Pts Care (In Minutes): 55 Discharge Plan: Home - Advance Directives Does patient have a Living Will: No Does patient have a Durable POA for Healthcare: No - Code Status/Comfort Care Code Status: Full Code Critical Care: No Time Spent Managing Pts Care (In Minutes): 55 <Yahaira South - Last Filed: 07/05/24 14:56> - Plan Pt seen and examined. I agree with the note by the ROTARY DRILLER PROSPECTING. Pt is a 78yo female with past medical history of chronic systolic congestive heart failure, COPD, insulin-dependent diabetes, CAD with previous CABG, hypertension, hyperlipidemia, and CKD 3 who presented with Orthopnea and shortness of breath. Pt reports Orthopnea and and right pleuritic chest pain with inspiration. Of note, Dr. Dia referred her to [facility] to see a education department registrar for evaluation valvular disease. On admission, lab studies shows wbc 6.7, Hgb 9.3, K 4.4, Cr 1.1 and BNP 45760. CXR shows pulm edema / multifocal pna. At bedside, pt is in NAD. A/P: Acute on chronic systolic [place] failure: [place] [address]. Will f/u Echo. Continue Lasix 40mg iv BID, strict I/O and daily weight. Multifocal pneumonia: Will continue rocephin and azithro. F/u blood cx. Hx of COPD: Will continue prn oxygen and duoneb. DM II: Continue accuchek, SSI and ADA diet. Htn: HLD HLD: statin CKD: Cr is 1.1. Will avoid nephrotoxins and monitor renal function. DVT ppx: SCD Code: full <Irene Winn - Last Filed: 07/05/24 17:20>
[2024-07-05] MEDS ORDERED: ONDANSETRON 4 MG/2 ML VIAL IV PRN (12:09)
[2024-07-05] MEDS ORDERED: NA CHLORIDE 0.9% 250 ML ONE (13:19)
[2024-07-05] MEDS ORDERED: AZITHROMYCIN 500 MG INJ IVPB ONE (13:19)
[2024-07-05] MEDS ORDERED: NA CHLORIDE 0.9% 50 ML ONE (13:19)
[2024-07-05] MEDS ORDERED: CEFTRIAXONE 1000 MG/VIAL ONE (13:19)
[2024-07-05] MEDS ORDERED: MORPHINE 2 MG/ML SYR IV PRN (13:47)
[2024-07-05] MEDS: FUROSEMIDE 40 MG/4 ML VIAL IV SCH ×2 (14:38→20:43)
[2024-07-05] MEDS: LOSARTAN POTASSIUM 50 MG TABLET PO SCH (14:39)
[2024-07-05] MEDS: METOPROLOL TAR 25 MG TAB PO SCH (20:43)
[2024-07-05] MEDS: ATORVASTATIN 40 MG TAB PO SCH (20:43)
[2024-07-05] MEDS ORDERED: D10W 125 ML IV PRN (21:45)
[2024-07-05] MEDS ORDERED: GLUCAGON 1 MG/VIAL IM PRN (21:45)
[2024-07-05] MEDS: LOPERAMIDE HCL 2 MG CAPSULE PO PRN (22:19)
[2024-07-05] MEDS: INSULIN REGULAR (HUMAN) 100 UNIT/ML SQ SCH (22:19)
[2024-07-05] MEDS: BENZONATATE 100 MG CAP PO PRN (22:19)
[2024-07-06] MEDS ORDERED: INSULIN REGULAR (HUMAN) 100 UNIT/ML SQ SCH (07:30)
[2024-07-06] MEDS: AZITHROMYCIN IV 500 MG in NA CHLORIDE 0.9% 250 ML IVPB SCH (08:38)
[2024-07-06] MEDS: ASPIRIN 81 MG CHEWABLE TABLET PO SCH (08:40)
[2024-07-06] MEDS: CEFTRIAXONE 1,000 MG in NA CHLORIDE 0.9% 50 ML IVPB SCH (08:40)
[2024-07-06 11:11] LABS: Absolute Basophils 0.1 K/uL (0-0.5); Absolute Lymphocytes (CBC) 0.9 K/uL (0.7-4.9); Absolute Monocytes 1.2 K/uL (0.1-1.3); Absolute Neutrophil 4.4 K/uL (1.8-8.0); Basophils % 0.9 % (0-1.3); Eosinophils % 0.6 % (0-4.4); Hematocrit 27.6 % (36.0-45.0); Hemoglobin 9.1 g/dL (12.0-15.0); Lymphocytes % 14.3 % (15.3-44.8); MCH 29.8 pg (27.0-35.0); MCHC 32.8 g/dL (32.0-36.0); MCV 90.9 fL (80-100); MPV 8.9 fL (7.6-11.3); Neutrophils % 66.2 % (41.7-73.7); Platelets 164 thou/uL (152-406); RBC Red Blood Cell Count 3.04 M/uL (3.86-4.86); Red Cell Distribution Width 12.8 % (12.1-15.2)
[2024-07-06 11:29] LABS: Magnesium 1.2 mg/dL (1.6-2.4)
[2024-07-06 13:19] VITALS: BMI 25.2
[2024-07-06 16:27] LABS: Specific Gravity 1.013 (1.005-1.030); Sqamous Epithelial <5 /HPF (None Seen); Urine Bacteria None Seen /HPF (<20); Urine Bilirubin NEGATIVE (Negative); Urine Blood 1+ (Negative); Urine Clarity Clear (Clear); Urine Color Light-Yellow (Yellow); Urine Culture Reflex Order NOT NEEDED; Urine Glucose NEGATIVE (Negative); Urine Ketones NEGATIVE (Negative); Urine Microscopic Reflex YN ORDER UMIC; Urine Mucus Slight /HPF (None Seen); Urine Nitrite NEGATIVE (Negative); Urine Protein NEGATIVE (Negative); Urine Urobilinogen Normal (Normal); Urine WBC <5 /HPF (<5)
[2024-07-06] MEDS: Magnesium Sulfate 2gm IVPB 2 G/50 ML BAG IV ONE (21:17)
[2024-07-07 07:33] LABS: Absolute Lymphocytes (CBC) 0.7 K/uL (0.7-4.9); Absolute Monocytes 0.9 K/uL (0.1-1.3); Absolute Neutrophil 4.4 K/uL (1.8-8.0); Basophils % 0.6 % (0-1.3); Eosinophils % 0.5 % (0-4.4); Hematocrit 29.7 % (36.0-45.0); Hemoglobin 10.3 g/dL (12.0-15.0); Lymphocytes % 11.8 % (15.3-44.8); MCH 31.1 pg (27.0-35.0); MCHC 34.7 g/dL (32.0-36.0); MCV 89.4 fL (80-100); MPV 8.2 fL (7.6-11.3); Monocytes % 15.1 % (3.3-12.3); Nucleated Red Blood Cells % 0.1 % (0-0); Platelets 221 thou/uL (152-406); RBC Red Blood Cell Count 3.33 M/uL (3.86-4.86); Red Cell Distribution Width 12.5 % (12.1-15.2)
[2024-07-07 07:53] LABS: Anion Gap 7.3 mEq/L (5.0-15.0); Magnesium 1.7 mg/dL (1.6-2.4); Potassium 4.3 mEq/L (3.5-5.1)
[2024-07-07] MEDS: MAGNESIUM SULFATE 1 gm IVPB 1 GM/100 ML BAG IV ONE (08:23)
[2024-07-07 09:28] VITALS: O2SAT 94
[2024-07-07 12:35] VITALS: BP 127/68; TEMP 97
--- NOTE | 2024-07-07 13:05 | EKG ---
Test Date: 2024-07-05 Test Time: 10:28:35 [employer] Weaving Machine Operator: CELE MEASUREMENT RESULTS: Intervals: Rate: 106 AL: 200 QRSD: 92 QT: 344 QTc: 456 [place]: P: 56 AL: 200 QRS: -3 T: 147 INTERPRETIVE STATEMENTS: Sinus tachycardia Septal infarct, age undetermined T wave abnormality, consider lateral ischemia Abnormal ECG Compared to ECG 05/31/2024 14:53:35 Sinus rhythm no longer present Sinus arrhythmia no longer present Junctional escape complex(es) no longer present First degree AV block no longer present Left-axis deviation no longer present Myocardial infarct finding still present T-wave abnormality still present Possible ischemia still present Electronically Signed On 07-07-24 12:57:22 CDT by Jignesh Valenzuela
--- NOTE | 2024-07-11 23:57 | P.PN ---
Date of Service: 07/06/24 Subjective patient is clinically doing better. Respiratory status has improved. Working on discharge home. Physical Examination - Vitals reviewed - Physical Exam General: Alert, Oriented x3, Mild distress Respiratory: Crackles/rales, Rhonchi/gurgles Cardiovascular: Normal pulses, Regular rate/rhythm Gastrointestinal: Normal bowel sounds, Soft and benign Musculoskeletal: No swelling, No contractures Assessment and Plan - Assessment/Plan Assessment/Plan -Acute on chronic diastolic heart failure Elevated BNP Pulmonary edema Cardiology consult Telemetry Trend BNP, diuretics, resume home meds Daily weight Azithromycin, ceftriaxone EKG sinus tachycardia rate 106, inverted T waves V5 V6, no ST changes, -Diabetes mellitus type 2insulin-dependent with hyperglycemia Accu-Cheks, sliding scale insulin, resume home meds -CAD with previous CABG Hypertension Hyperlipidemia COPD Resume home meds - Advance Directives Does patient have a Living Will: No Does patient have a Durable POA for Healthcare: No - Code Status/Comfort Care Code Status Assessed: Yes (Full code) Critical Care: No Time Spent Managing Pts Care (In Minutes): 35
--- NOTE | 2024-07-11 23:58 | P.DS ---
Discharge Date: 07/07/24 Disposition: ROUTINE DISCHARGE Discharge Condition: GOOD Reason for Admission: Acute on chronic heart failure Brief History of Present Illness: 78-year-old female with a past medical history of chronic systolic congestive heart failure, COPD, insulin-dependent diabetes, CAD with previous CABG, hypertension, hyperlipidemia, CKD 3 presents to the emergency department with shortness of breath. She reports shortness of breath is worse with exertion, worse while lying flat. She reports pleurisy right pleuritic chest pain with with inspiration. 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 No reported edema, fever, dizziness, plan to admit for acute on chronic combined systolic and diastolic congestive heart failure, acute pulmonary edema, dyspnea. With cardiology to consult Hospital Course: patient's respiratory status has improved. Patient has done well during hospital stay. Clinically, patient is much better. At this time, patient is stable for discharge home. Patient will follow-up with consultants and PCP as an outpatient. Vital Signs/Physical Exam: Temp Pulse Resp BP Pulse Ox 97.0 F 80 18 127/68 94 07/07/24 12:00 07/07/24 12:00 07/07/24 12:00 07/07/24 12:00 07/07/24 12:00 General: Alert, In no apparent distress, Oriented x3 Laboratory Data at Discharge: WBC 6.10 thou/uL (4.3-10.9) 07/07/24 07:23 Hgb 10.3 g/dL (12.0-15.0) L D 07/07/24 07:23 Hct 29.7 % (36.0-45.0) L 07/07/24 07:23 Plt Count 221 thou/uL (152-406) D 07/07/24 07:23 PT 15.9 SECONDS (9.4-12.5) H 07/05/24 10:24 INR 1.43 07/05/24 10:24 Sodium 136 mEq/L (136-145) 07/07/24 07:23 Potassium 4.3 mEq/L (3.5-5.1) D 07/07/24 07:23 BUN 23 mg/dL (7-18) H 07/07/24 07:23 Creatinine 1.29 mg/dL (0.55-1.02) H 07/07/24 07:23 Glucose 120 mg/dL (74-106) H 07/07/24 07:23 Magnesium 1.7 mg/dL (1.6-2.4) 07/07/24 07:23 Total Bilirubin 0.5 mg/dL (0.2-1.0) 07/05/24 10:24 AST 18 U/L (15-37) 07/05/24 10:24 ALT 22 U/L (13-56) 07/05/24 10:24 Alkaline Phosphatase 103 U/L (45-117) 07/05/24 10:24 Home Medications: Insulin Glargine Human [Lantus*] 12 units SQ BID 05/09/18 Albuterol Inhaler [Ventolin Inhaler*] 2 puff IH Q6H PRN 08/28/22 Furosemide [Lasix*] 40 mg PO DAILY 08/28/22 Aspirin Chewable [Aspirin Chewable*] 81 mg PO DAILY #30 tab.chew 09/03/22 Ipratropium Neb [Atrovent*] 0.5 mg NEB [id number] #60 amp 09/03/22 Atorvastatin Calcium [Lipitor] 40 mg PO BEDTIME 10/10/22 Albuterol Neb [Proventil 0.083% Neb Soln] 2.5 mg NEB [id number] PRN #60 amp 10/18/22 Cyanocobalamin (Vitamin B-12) [Vitamin B12] 5,000 mcg SL DAILY #30 tab 10/18/22 Metoprolol Tartrate 25 mg PO BID #60 tab 10/01/23 Tirzepatide [Mounjaro] 5 mg SQ EVERY 7TH DAY 05/31/24 Loperamide [Imodium*] 2 mg PO UD PRN 07/05/24 Atorvastatin Calcium [Lipitor] 40 mg PO BEDTIME #30 tab 07/07/24 Benzonatate [Tessalon Perle*] 100 mg PO TID PRN #30 cap 07/07/24 Furosemide 40 mg PO BIDAC #60 tab 07/07/24 Losartan Potassium [Cozaar*] 25 mg PO DAILY #30 tab 07/07/24 Potassium Chloride 10 meq PO BIDAC #60 tab 07/07/24 New Medications: Losartan Potassium [Cozaar*] 25 mg PO DAILY #30 tab Furosemide 40 mg PO BIDAC #60 tab Atorvastatin Calcium [Lipitor] 40 mg PO BEDTIME #30 tab Potassium Chloride 10 meq PO BIDAC #60 tab Benzonatate [Tessalon Perle*] 100 mg PO TID PRN #30 cap PRN Reason: Cough Physician Discharge Instructions: -DC IV and DC home -Follow-up with PCP in 1 to 2 weeks -Follow-up with Cardiology in 1 to 2 weeks -Please call Dr. Rain at [phone] if any questions regarding hospital stay -Please call nursing station at [phone] if any nursing or medication questions -Return to the emergency room if symptoms worsen Diet: Low sodium Activity: Fall precautions Followup: Jignesh Valenzuela MD [ACTIVE - CAN ADMIT] - 1-2 Weeks Shawn Quintanilla DO [Primary Care Provider] - 1-2 Weeks Time spent managing pt's care (in minutes): 35
== END 2024-07-07 16:35 | disposition home or self-care (01) | DRG 291 ==
LOC: ER 09:45 → 4TH 12:07
PROVIDERS: ADMIT Hospitalist; ATTEND Hospitalist
DX: I13.0 Hypertensive heart and chronic kidney disease with heart failure and stage 1 through stage 4 chronic kidney disease, or unspecified chronic kidney disease (principal); I50.23 Acute on chronic systolic (congestive) heart failure; J18.9 Pneumonia, unspecified organism; N18.30 Chronic kidney disease, stage 3 unspecified; E11.22 Type 2 diabetes mellitus with diabetic chronic kidney disease; E11.65 Type 2 diabetes mellitus with hyperglycemia; Z79.4 Long term (current) use of insulin; E11.40 Type 2 diabetes mellitus with diabetic neuropathy, unspecified; J44.9 Chronic obstructive pulmonary disease, unspecified; E78.5 Hyperlipidemia, unspecified; I25.10 Atherosclerotic heart disease of native coronary artery without angina pectoris; Z98.61 Coronary angioplasty status; Z95.1 Presence of aortocoronary bypass graft
CPT/HCPCS: 36415; 71045; 80048; 80076; 81001; 82565; 82947; 83605; 83735; 83880; 84484; 85025; 85610; 87040; 93005; 94760; 99285; J0696; J1940; J3475; J7050

== ENCOUNTER 2024-07-24 15:03 | Inpatient (IN) | payer OTHER ==
[2024-07-24 16:35] LABS: Absolute Lymphocytes (CBC) 1.1 K/uL (0.7-4.9); Absolute Monocytes 0.6 K/uL (0.1-1.3); Absolute Neutrophil 1.8 K/uL (1.8-8.0); Basophils % 1.3 % (0-1.3); Eosinophils % 1.3 % (0-4.4); Hematocrit 27.7 % (36.0-45.0); Hemoglobin 9.4 g/dL (12.0-15.0); Lymphocytes % 30.6 % (15.3-44.8); MCH 30.9 pg (27.0-35.0); MPV 9.7 fL (7.6-11.3); Monocytes % 16.1 % (3.3-12.3); Neutrophils % 50.7 % (41.7-73.7); Platelets 96 thou/uL (152-406); RBC Red Blood Cell Count 3.05 M/uL (3.86-4.86)
[2024-07-24 16:40] LABS: PT Prothrombin Time 13.1 SECONDS (9.4-12.5); Protime INR 1.18
--- NOTE | 2024-07-24 16:41 | RAD REPORT ---
Procedure: Chest Single View HISTORY: Shortness of breath COMPARISON: June 2024 FINDINGS: Left basilar lung opacities have diminished since the prior exam. Right lung appears clear of acute i nfiltrate. The heart is mildly enlarged. Post surgical changes involving the chest. IMPRESSION: Left basilar lung opacities have diminished since the prior exam. There probably is a small left pleu ral effusion with mild atelectasis or pneumonia.
[2024-07-24] MEDS ORDERED: IPRATROPIUM BROM 0.5MG/2.5ML ONE (16:46)
[2024-07-24] MEDS ORDERED: AZITHROMYCIN 250 MG TAB ONE (16:46)
[2024-07-24] MEDS ORDERED: LEVALBUTEROL 1.25 MG/3 ML NEB ONE (16:46)
[2024-07-24] MEDS ORDERED: CEFTRIAXONE 1000 MG/VIAL ONE (16:46)
[2024-07-24 16:54] LABS: ALT/SGPT 19 U/L (13-56); AST/SGOT 18 U/L (15-37); Albumin 3.2 g/dL (3.4-5.0); Alkaline Phosphatase 97 U/L (45-117); Anion Gap 9.7 mEq/L (5.0-15.0); BUN Blood Urea Nitrogen 44 mg/dL (7-18); Bicarbonate 24 mEq/L (21-32); Bilirubin Total 0.4 mg/dL (0.2-1.0); Globulin 3.2 g/dL (2.3-3.5); Glomerular Filtration Rate 29 ml/min (=/>90); Glucose Level 322 mg/dL (74-106); Lipase 32 U/L (13-75); Magnesium 1.8 mg/dL (1.6-2.4); NT PRO-BNP 4068 pg/mL (<450); Potassium 4.7 mEq/L (3.5-5.1); Protein, Total 6.4 g/dL (6.4-8.2); Sodium Level 139 mEq/L (136-145); Troponin High Sensitivity 12.4 pg/mL (<58.9)
[2024-07-24 16:56] LABS: Bilirubin Direct < 0.2 mg/dL (0-0.2); Bilirubin Indirect, Calculated 0.2 mg/dL (0.2-0.8)
[2024-07-24 17:11] LABS: Blood Morphology Comment NOT SEEN (NOT SEEN); Platelet Estimate DECR; White Blood Cell Scan OK (OK)
--- NOTE | 2024-07-24 17:22 | EDPHYS ---
Physician Documentation [facility] Name: Alyson Ibarra Age: 79 yrs Sex: Female : 1945 Arrival Date: 07/24/2024 Time: 15:03 Bed 14 Private MD: ED Physician Jarrod Bonner HPI: 07/24 17:13 This 79 yrs old Female presents to ER via Wheelchair with complaints of carey Shortness Of Breath. 17:13 The patient has shortness of breath at rest, with light activity. Onset: The carey symptoms/episode began/occurred 1 day(s) ago. Duration: The symptoms are continuous, and are steadily getting worse. The patient's shortness of breath is aggravated by nothing. Associated signs and symptoms: Pertinent positives: non-productive cough. Severity of symptoms: At their worst the symptoms were moderate in the emergency department the symptoms are unchanged. The patient has experienced similar episodes in the past, multiple times. Historical: - Allergies: 15:12 Cipro; iw - PMHx: 15:12 CAD; Hypertension; neuropathy; Hyperlipidemia; Diabetes - IDDM; COPD; CHF; iw - PSHx: 15:12 Heart Stents; hernia; iw - Immunization history:: Adult Immunizations not up to date. - Infectious Disease History:: Denies. - Social history:: Smoking status: Patient denies any tobacco usage or history of. - Family history:: not pertinent. ROS: 17:13 Constitutional: Negative for fever, chills, and weight loss, Eyes: Negative for injury, carey pain, redness, and discharge, ENT: Negative for injury, pain, and discharge, Neck: Negative for injury, pain, and swelling, Abdomen/GI: Negative for abdominal pain, nausea, vomiting, diarrhea, and constipation, Back: Negative for injury and pain, : Negative for injury, bleeding, discharge, and swelling, MS/Extremity: Negative for injury and deformity, Skin: Negative for injury, rash, and discoloration, Neuro: Negative for headache, weakness, numbness, tingling, and seizure, Psych: Negative for depression, anxiety, suicide ideation, homicidal ideation, and hallucinations, Allergy/Immunology: Negative for hives, rash, and allergies, Endocrine: Negative for neck swelling, polydipsia, polyuria, polyphagia, and marked weight changes, Hematologic/Lymphatic: Negative for swollen nodes, abnormal bleeding, and unusual bruising, 17:13 Cardiovascular: Positive for palpitations, 17:13 Respiratory: Positive for cough, shortness of breath, wheezing, expiratory, Exam: 17:13 Constitutional: This is a well developed, well nourished patient who is awake, alert, carey and in no acute distress. Head/Face: Normocephalic, atraumatic. Eyes: Pupils equal round and reactive to light, extra-ocular motions intact. Lids and lashes normal. Conjunctiva and sclera are non-icteric and not injected. Cornea within normal limits. Periorbital areas with no swelling, redness, or edema. ENT: Nares patent. No nasal discharge, no septal abnormalities noted. Tympanic membranes are normal and external auditory canals are clear. Oropharynx with no redness, swelling, or masses, exudates, or evidence of obstruction, uvula midline. Mucous membranes moist. Neck: Trachea midline, no thyromegaly or masses palpated, and no cervical lymphadenopathy. Supple, full range of motion without nuchal rigidity, or vertebral point tenderness. No Meningismus. Chest/axilla: Normal chest wall appearance and motion. Nontender with no deformity. No lesions are appreciated. Abdomen/GI: Soft, non-tender, with normal bowel sounds. No distension or tympany. No guarding or rebound. No evidence of tenderness throughout. Back: No spinal tenderness. No costovertebral tenderness. Full range of motion. Female : Normal external genitalia. Skin: Warm, dry with normal turgor. Normal color with no rashes, no lesions, and no evidence of cellulitis. MS/ Extremity: Pulses equal, no cyanosis. Neurovascular intact. Full, normal range of motion. Neuro: Awake and alert, GCS 15, oriented to person, place, time, and situation. Cranial nerves II-XII grossly intact. Motor strength 5/5 in all extremities. Sensory grossly intact. Cerebellar exam normal. Normal gait. Psych: Awake, alert, with orientation to person, place and time. Behavior, mood, and affect are within normal limits. 17:13 Cardiovascular: Rate: normal, Rhythm: regular, Pulses: Pulses are 4+ in bilateral radial, brachial, femoral, popliteal, posterior tibial and and dorsalis pedis arteries.. Heart sounds: normal, Edema: is not appreciated, JVD: is noted bilaterally, to 3 cm, 17:13 ECG was reviewed by the Attending Physician. 17:13 Musculoskeletal/extremity: DVT Exam: No signs of deep vein thrombosis. no pain, no swelling, no tenderness, negative Homans' sign noted on exam, no appreciated bluish discoloration, no erythema, no increased warmth, Vital Signs: 15:10 BP 137 / 41; Pulse 57; Resp 16; Temp 97.8; Pulse Ox 97% ; Weight 65.32 kg; Height 5 ft. iw 5 in. ; Pain 10/10; 16:52 BP 135 / 43; Pulse 78; Resp 18; Pulse Ox 100% on R/A; mb9 18:07 BP 155 / 85; Pulse 89; Resp 18; Pulse Ox 100% on R/A; mb9 19:22 BP 123 / 85; Pulse 67; Resp 18; Pulse Ox 100% on R/A; mb9 15:10 Body Mass Index 23.96 (65.32 kg, 165.1 cm) iw 15:10 Pain Scale: Adult iw Procedures: 17:17 Peripheral line: by aseptic technique a peripheral line was placed in the right [facility] external jugular vein. MDM: 15:14 Medical Screening Exam initiated [facility] 17:16 Differential diagnosis: Anemia Anxiety Reaction asthma, Bronchitis CHF exacerbation, [facility] Chronic Obstructive Pulmonary Disease Myocardial Infarction pneumonia, Pneumothorax pulmonary edema, Pulmonary Embolism reactive airway disease, Unstable Angina. Antibiotic administration: Rocephin and Zithromax given. Immunization status: Pneumococcal vaccine: within last 5 years. Influenza vaccine: within last 5 years. Data reviewed: vital signs, nurses notes, lab test result(s), EKG, radiologic studies, CT scan, plain films. Consideration of Admission/Observation Patient was admitted/placed on observation. Escalation of care including admission/observation considered. I considered the following discharge prescriptions or medication management in the emergency department Medications were administered in the Emergency Department. See MAR. Independent interpretation of the following test(s) in the Emergency Department EKG: See my EKG interpretation above. Test considered but Not performed: CT: no cy chest with iv. Care significantly affected by the following chronic conditions: Diabetes, Hypertension, Congestive Heart Failure, Chronic Obstructive Pulmonary Disease, Chronic Kidney Disease. 07/24 15:15 Order name: Basic Metabolic Panel; Complete Time: 16:59 [facility] 07/24 15:15 Order name: CBC with Diff; Complete Time: 18:46 carey 07/24 15:15 Order name: LFT's; Complete Time: 16:59 [facility]y 07/24 15:15 Order name: Magnesium; Complete Time: 16:59 carey 07/24 15:15 Order name: NT PRO-BNP; Complete Time: 16:59 [facility] 07/24 15:15 Order name: PT-INR; Complete Time: 16:46 07/24 15:15 Order name: Troponin HS; Complete Time: 16:59 07/24 15:15 Order name: Urinalysis w/ reflexes [facility] 07/24 15:15 Order name: Lipase; Complete Time: 16:59 [facility] 07/24 16:34 Order name: Blood Culture Adult (2) [facility] 07/24 16:35 Order name: Lactate w/ 2H reflex if indic.; Complete Time: 18:46 [facility] 07/24 17:12 Order name: CBC Smear Scan; Complete Time: 18:46 EDMD 07/24 20:50 Order name: Urinalysis w/ reflexes EDMS 07/24 20:50 Order name: CBC with Automated Diff EDMS 07/24 20:50 Order name: CBC with Automated Diff EDMS 07/24 20:50 Order name: Comprehensive Metabolic Panel EDMS 07/24 20:50 Order name: Comprehensive Metabolic Panel EDMD 07/24 15:15 Order name: XRAY Chest (1 view); Complete Time: 16:46 [facility] 07/24 17:06 Order name: Thorax Wo Con; Complete Time: 18:46 EDMD 07/24 15:15 Order name: EKG; Complete Time: 15:15 07/24 15:15 Order name: Cardiac monitoring; Complete Time: 15:15 07/24 15:15 Order name: EKG - Nurse/Tech; Complete Time: 17:16 carey 07/24 15:15 Order name: IV Saline Lock; Complete Time: 17:16 [facility]y 07/24 15:15 Order name: Labs collected and sent; Complete Time: 17:16 [facility] 07/24 15:15 Order name: O2 Per Protocol; Complete Time: 15:15 [facility] 07/24 15:15 Order name: O2 Sat Monitoring; Complete Time: 15:15 [facility] EC:13 Rate is 55 beats/min. Rhythm is regular. QRS [place] is Normal. DC interval is prolonged carey at 220 msec. QRS interval is normal. QT interval is normal. No Q waves. T waves are Normal. No ST changes noted. Clinical impression: NSR w/ Non-specific ST/T Changes, 1st degree heart block, and No evidence of ischemia. Interpreted by me. Reviewed by me. Administered Medications: 17:14 Drug: AZITHromycin PO 500 mg PO once Route: PO; mb9 18:12 Follow up: Response: No adverse reaction mb9 17:14 Drug: Levalbuterol Inhalation 2.5 mg Inhalation once Route: Inhalation; mb9 18:12 Follow up: Response: No adverse reaction mb9 17:14 Drug: Ipratropium Inhalation Aerosol 0.5 mg Inhalation once Route: Inhalation; mb9 18:11 Follow up: Response: No adverse reaction mb9 17:15 Drug: Rocephin IV 1 grams IV at per protocol once; Given slow IV push per pharmacy mb9 instructions Route: IV; Rate: per protocol; Site: right jugular; 18:12 Follow up: Response: No adverse reaction; IV Status: Completed infusion mb9 18:23 Drug: Acetaminophen PO 650 mg PO once Route: PO; mb9 18:40 Follow up: Response: No adverse reaction mb9 Disposition Summary: 07/24/24 17:21 Hospitalization Ordered Notes: Hospitalization Status: Inpatient Admission carey Provider: Melvin Worrell cha Location: Telemetry/MedSurg (Inpatient) carey Condition: Stable carey Problem: new carey Symptoms: have improved carey Bed/Room Type: Standard carey Room Assignment: 404(07/24/24 21:05) vc1 Diagnosis - Dyspnea carey - COPD/ Chronic obstructive pulmonary disease with (acute) exacerbation carey - Combined systolic (congestive) and diastolic (congestive) heart failure carey - Unspecified kidney failure carey - Pleural effusion in other conditions classified elsewhere carey - Pneumonia due to other specified bacteria carey Forms: - Medication Reconciliation Form carey - SBAR form carey - Leadership Thank You Letter carey Signatures: Dispatcher [employer] EDJarrod Carrasco MD MD cha Williams, Irene, RN RN iw Cindi Park RN RN aa5 Shaila Nuno RN RN vc1 Inessa Keyes RN RN mb9 Corrections: (The following items were deleted from the chart) 15:15 15:15 BASIC METABOLIC PANEL+C.LAB.BRZ ordered. EDMS EDMS 15:15 15:15 CBC+H.LAB.BRZ ordered. EDMS EDMS 15:15 15:15 HEPATIC FUNCTION+C.LAB.BRZ ordered. EDMS EDMS 15:15 15:15 MAGNESIUM+C.LAB.BRZ ordered. EDMS EDMS 15:15 15:15 PROBNP+C.LAB.BRZ ordered. EDMS EDMS 15:15 15:15 PROTIME (+INR)+COAG.LAB.BRZ ordered. EDMS EDMS 15:15 15:15 Troponin High Sensitivity+C.LAB.BRZ ordered. EDMS EDMS 15:15 15:15 Urinalysis+U.LAB.BRZ ordered. EDMS EDMS 15:15 15:15 LIPASE+C.LAB.BRZ ordered. EDMS EDMS 17:06 16:47 Chest For PE Angio+CT.RAD.BRZ ordered. EDMS EDMS 21:05 17:21 carey vc1
--- NOTE | 2024-07-24 17:22 | ER ---
Nurse's Notes [facility] Name: Alyson Ibarra Age: 79 yrs Sex: Female : 1945 Arrival Date: 07/24/2024 Time: 15:03 Bed 14 Private MD: Diagnosis: Dyspnea;COPD/ Chronic obstructive pulmonary disease with (acute) exacerbation;Combined systolic (congestive) and diastolic (congestive) heart failure;Unspecified kidney failure;Pleural effusion in other conditions classified elsewhere;Pneumonia due to other specified bacteria Presentation: 07/24 15:10 Chief complaint: Patient's son or daughter states: pt had a CHASE done yesterday at [facility], now she is having diff breathing , had blood in her stool today and her head hurts. Coronavirus screen: At this time, the client does not indicate any symptoms associated with coronavirus-19. Ebola Screen: No symptoms or risks identified at this time. Initial Sepsis Screen: Does the patient meet any 2 criteria? No. Patient's initial sepsis screen is negative. Does the patient have a suspected source of infection? No. Patient's initial sepsis screen is negative. Risk Assessment: Do you want to hurt yourself or someone else? Patient reports no desire to harm self or others. Onset of symptoms was July 24, 2024. 15:10 Method Of Arrival: Wheelchair 15:10 Acuity: LETY 3 iw Historical: - Allergies: 15:12 Cipro; iw - PMHx: 15:12 CAD; Hypertension; neuropathy; Hyperlipidemia; Diabetes - IDDM; COPD; CHF; iw - PSHx: 15:12 Heart Stents; hernia; iw - Immunization history:: Adult Immunizations not up to date. - Infectious Disease History:: Denies. - Social history:: Smoking status: Patient denies any tobacco usage or history of. - Family history:: not pertinent. Screenin:16 [facility] ED Fall Risk Assessment (Adult) History of falling in the last 3 months, mb9 including since admission No falls in past 3 months (0 pts) Confusion or Disorientation No (0 pts) Intoxicated or Sedated No (0 pts) Impaired Gait No (0 pts) Mobility Assist Device Used No (0 pt) Altered Elimination No (0 pt) Score/Fall Risk Level 0 - 2 = Low Risk Oriented to surroundings, Maintained a safe environment, Educated pt \T\ family on fall prevention, incl call for assistance when getting out of bed. Abuse screen: Denies threats or abuse. Nutritional screening: No deficits noted. Tuberculosis screening: No symptoms or risk factors identified. Assessment: 15:44 General: Appears in no apparent distress. Behavior is calm, cooperative. Pain: Denies mb9 pain. Neuro: Portillo Agitation-Sedation Scale (RASS): 0 - Alert and Calm Level of Consciousness is awake, alert, obeys commands, Oriented to person, place, time, situation, Appropriate for age. Cardiovascular: Heart tones S1 S2 present Patient's skin is warm and dry. Rhythm is regular. Respiratory: Reports shortness of breath Airway is patent Respiratory effort is even, unlabored, Respiratory pattern is regular, symmetrical, Breath sounds are clear bilaterally. GI: Abdomen is round non-distended, Bowel sounds present X 4 quads. Abd is soft and non tender X 4 quads. Reports diarrhea. : No signs and/or symptoms were reported regarding the genitourinary system. EENT: No signs and/or symptoms were reported regarding the EENT system. Derm: Skin is fragile, is thin, Skin is dry, Skin is normal, Skin temperature is cool. Musculoskeletal: Range of motion: intact in all extremities. 16:02 Reassessment: Pt refusing Ultrasound IV, blood work, etc. Pt educated about ultrasound mb9 IV process and how it works. Pt states she will scream at me while doing it and not be cooperative. ERP notified. 16:17 Reassessment: kiara macias phone number . iw 18:07 Reassessment: No changes from previously documented assessment. Patient and/or family mb9 updated on plan of care and expected duration. Pain level reassessed. Patient is alert, oriented x 3, equal unlabored respirations, skin warm/dry/pink. 19:22 Reassessment: Patient appears in no apparent distress at this time. No changes from mb9 previously documented assessment. Patient and/or family updated on plan of care and expected duration. Pain level reassessed. Patient is alert, oriented x 3, equal unlabored respirations, skin warm/dry/pink. 20:06 General: Contacted Dr. Dasilva to request admission orders. iw 21:06 Reassessment: Spoke to pts daughter Shaila, and updated on plan on care and room 404. mb9 Reassessment: No changes from previously documented assessment. Patient and/or family updated on plan of care and expected duration. Pain level reassessed. Patient is alert, oriented x 3, equal unlabored respirations, skin warm/dry/pink. Vital Signs: 15:10 BP 137 / 41; Pulse 57; Resp 16; Temp 97.8; Pulse Ox 97% ; Weight 65.32 kg; Height 5 ft. iw 5 in. ; Pain 10/10; 16:52 BP 135 / 43; Pulse 78; Resp 18; Pulse Ox 100% on R/A; mb9 18:07 BP 155 / 85; Pulse 89; Resp 18; Pulse Ox 100% on R/A; mb9 19:22 BP 123 / 85; Pulse 67; Resp 18; Pulse Ox 100% on R/A; mb9 15:10 Body Mass Index 23.96 (65.32 kg, 165.1 cm) iw 15:10 Pain Scale: Adult iw ED Course: 15:07 Patient arrived in ED. im 15:12 Triage completed. iw 15:13 Arm band placed on. iw 15:14 Jarrod Bonner MD is Attending Physician. carey 15:14 Stewart Dominguez, RN is Primary Nurse. rs5 15:16 Primary Nurse role handed off by Stewart Dominguez, RN mb9 15:16 Inessa Keyes, RN is Primary Nurse. mb9 15:16 Placed in gown. Bed in low position. Call light in reach. Side rails up X 1. Provided mb9 Education on: press call light if needing anything. Client placed on continuous cardiac and pulse oximetry monitoring. NIBP monitoring applied. playground monitor on. 15:45 EKG done, by ED staff, reviewed by Jarrod Bonner MD. Missed attempt(s): 20 gauge in mb9 right antecubital area. Bleeding controlled, band aid applied, catheter tip intact. 16:36 XRAY Chest (1 view) In Process Unspecified. EDMS 17:15 Initial lab(s) drawn, by me, sent to lab. Inserted saline lock: 20 gauge in right EJ, mb9 using aseptic technique. ,using aseptic technique. done by Dr. Bonner Blood collected. Flushed with 10 mL NS. 17:15 No provider procedures requiring assistance completed. mb9 17:20 Melvin Worrell is Hospitalizing Provider. carey 17:28 Thorax Wo Con In Process Unspecified. EDMS 18:07 Patient admitted, IV remains in place. mb9 Administered Medications: 17:14 Drug: AZITHromycin PO 500 mg PO once Route: PO; mb9 18:12 Follow up: Response: No adverse reaction mb9 17:14 Drug: Levalbuterol Inhalation 2.5 mg Inhalation once Route: Inhalation; mb9 18:12 Follow up: Response: No adverse reaction mb9 17:14 Drug: Ipratropium Inhalation Aerosol 0.5 mg Inhalation once Route: Inhalation; mb9 18:11 Follow up: Response: No adverse reaction mb9 17:15 Drug: Rocephin IV 1 grams IV at per protocol once; Given slow IV push per pharmacy mb9 instructions Route: IV; Rate: per protocol; Site: right jugular; 18:12 Follow up: Response: No adverse reaction; IV Status: Completed infusion mb9 18:23 Drug: Acetaminophen PO 650 mg PO once Route: PO; mb9 18:40 Follow up: Response: No adverse reaction mb9 Medication: 15:16 VIS not applicable for this client. mb9 Outcome: 17:21 Decision to Hospitalize by Provider. carey 21:05 Admitted to Tele accompanied by tech, via wheelchair, mb9 21:05 Condition: stable 21:05 Instructed on the need for admit, 22:27 Patient left the ED. mb9 Signatures: Dispatcher [employer] Jarrod Beckett MD MD cha Williams, Irene, RN LINO Keyes, Inessa Helton RN RN mb9 Stewart Dominguez RN RN rs5 Scarlett Hall
--- NOTE | 2024-07-24 18:14 | RAD REPORT ---
EXAM:Thorax Wo Con CLINICAL INDICATION: Chest pain TECHNIQUE: CT chest performed.. Axial, sagittal and coronal reconstructions wereobtained. One or more of the following dose reduction techniques were used: Automated exposure control, adjustment of the mA and/or kV according to the patient size, and/or iterative reconstruction. Unless otherwise specified, incidental findings do not require dedicated imaging follow-up. [id number]. COMPARISON: June 2024 FINDINGS: [id number] left pleural effusion with mild left lower lobe atelectasis. Minimal tree-in-bud opacities right lung. No mediastinal or hilar lymphadenopathy No pericardial effusion Coronary arterial calcification Prominent calcification proximal left subclavian artery and distal brachiocephalic artery IMPRESSION: [id number] left pleural effusion
[2024-07-24] MEDS ORDERED: ACETAMINOPHEN 325 MG TABLET ONE (18:18)
--- NOTE | 2024-07-24 18:25 | P.HP ---
Certification for Inpatient Patient admitted to: Inpatient With expected LOS: >2 Midnights Practitioner: I am a practitioner with admitting privileges, knowledge of patient current condition, hospital course, and medical plan of care. Services: Services provided to patient in accordance with Admission requirements found in Title 42 Section 412.3 of the Code of Federal Regulations Patient History Date of Service: 07/24/24 Reason for admission: SOB History of Present Illness: 79 yrs old Female with past medical history of hypertension, hyperlipidemia, diabetes, COPD, CHF, CAD status post PCI brought to ER with shortness of breath which started yesterday and has been progressively getting worse associated with cough with mucoid expectoration. She has difficulty in ambulating. Even with minimal movements she is starting to get short of breath. Patient has admitted previously with similar symptoms and was sent to [place] for possible CHASE and was told about valve leak and proposed to have a clip surgery which she is awaiting. Patient denies any fever or chills. No nausea vomiting or diarrhea. No sick contacts. Patient was assessed in the ER and was admitted for further management of CHF exacerbation Allergies ciprofloxacin [From Cipro] Allergy (Intermediate, Verified 06/03/24 09:58) Itching Home medications list reviewed: Yes Home Medications: Insulin Glargine Human [Lantus*] 12 units SQ BID 05/09/18 Albuterol Inhaler [Ventolin Inhaler*] 2 puff IH Q6H PRN 08/28/22 Furosemide [Lasix*] 40 mg PO DAILY 08/28/22 Aspirin Chewable [Aspirin Chewable*] 81 mg PO DAILY #30 tab.chew 09/03/22 Ipratropium Neb [Atrovent*] 0.5 mg NEB [id number] #60 amp 09/03/22 Atorvastatin Calcium [Lipitor] 40 mg PO BEDTIME 10/10/22 Albuterol Neb [Proventil 0.083% Neb Soln] 2.5 mg NEB [id number] PRN #60 amp 10/18/22 Cyanocobalamin (Vitamin B-12) [Vitamin B12] 5,000 mcg SL DAILY #30 tab 10/18/22 Metoprolol Tartrate 25 mg PO BID #60 tab 10/01/23 Tirzepatide [Mounjaro] 5 mg SQ EVERY 7TH DAY 05/31/24 Loperamide [Imodium*] 2 mg PO UD PRN 09/30/24 Atorvastatin Calcium [Lipitor] 40 mg PO BEDTIME #30 tab 07/07/24 Benzonatate [Tessalon Perle*] 100 mg PO TID PRN #30 cap 07/07/24 Furosemide 40 mg PO BIDAC #60 tab 07/07/24 Losartan Potassium [Cozaar*] 25 mg PO DAILY #30 tab 07/07/24 Potassium Chloride 10 meq PO BIDAC #60 tab 07/07/24 - Past Medical/Surgical History Diabetic: Yes Past Medical History: Reviewed- Non-Contributory -: Hypertension -: Chronic systolic congestive heart failure -: IDDM -: neuropathy -: hyperlipidemia -: CAD -: SD -: COPD Past Surgical History: Reviewed- Non-Contributory -: cardiac catheterization -: Coronary artery bypass grafting -: Bilateral knee surgery Psychosocial/ Personal History: Patient lives at home with family - Family History Mother -: Diabetes Father -: Diabetes Notes: neuropathy - Social History Smoking Status: Never smoker Alcohol use: No CD- Drugs: No Caffeine use: No Review of Systems 10-point ROS is otherwise unremarkable Physical Examination - Vital Signs Temperature: 97.2 F Blood Pressure: 136/82 Pulse: 79 Respirations: 18 Pulse Ox (%): 94 - Physical Exam General: Alert, Oriented x3, Mild distress HEENT: Atraumatic, Normocephalic Neck: Supple, No Thyromegaly Respiratory: Clear to auscultation bilaterally, Crackles/rales Cardiovascular: Regular rate/rhythm, Normal S1 S2 Capillary refill: <2 Seconds Gastrointestinal: Soft and benign, W/out hepatosplenomegaly Musculoskeletal: No clubbing, No swelling Integumentary: No rashes, No breakdown Neurological: Normal speech, Normal strength at 5/5 x4 extr Lymphatics: No axilla or inguinal lymphadenopathy - Studies Laboratory Data (last 24 hrs) 07/24/24 07/24/24 07/24/24 16:25 16:25 16:25 WBC 3.50 L Hgb 9.4 L Hct 27.7 L Plt Count 96 L PT 13.1 H INR 1.18 Sodium 139 Potassium 4.7 BUN 44 H Creatinine 1.78 H Glucose 322 H Magnesium 1.8 Total Bilirubin 0.4 AST 18 ALT 19 Alkaline Phosphatase 97 Lipase 32 Assessment and Plan - Plan Acute on chronic CHF possibly systolic/diastolic Monitor closely on telemetry Started on aggressive diuresis X-ray findings noted Oxygen supplementation Will try to wean down oxygen requirement Continue home medications Titrate as needed Cardiology consult with Dr. Dia Hypertension Antihypertensives titrated Continue home medications and titrate as needed Hyperlipidemia Continue statin CKD stage II Monitor renal parameters Electrolytes monitor and replace accordingly Diabetes Insulin sliding scale Accu-Chek before every meal and at bedtime Anemia of chronic disease Monitor H&H closely No overt bleeding at this time CAD Continue home medications and titrate as needed Patient scheduled for valvular regurgitations surgery/clip placement Need to follow-up with cardiology in [place] Left pleural effusion/atelectasis Cover with IV antibiotic for now Monitor closely under telemetry GI/DVT prophylaxis Advanced directive full code Discharge Plan: Home Plan to discharge in: 48 Hours - Advance Directives Does patient have a Living Will: No Does patient have a Durable POA for Healthcare: No - Code Status/Comfort Care Code Status: Full Code Time Spent Managing Pts Care (In Minutes): 48
[2024-07-24] MEDS ORDERED: ONDANSETRON 4 MG/2 ML VIAL IV PRN (20:46)
[2024-07-24] MEDS ORDERED: BENZONATATE 100 MG CAP PO PRN (21:33)
[2024-07-24] MEDS ORDERED: ALBUTEROL 2.5 MG/3 ML NEB SOL NEB PRN ×2 (21:33→22:00)
[2024-07-24 22:50] VITALS: BMI 23.8
[2024-07-25] MEDS: ACETAMINOPHEN 325 MG TABLET PO PRN ×2 (00:42→11:44)
[2024-07-25] MEDS: LOSARTAN POTASSIUM 50 MG TABLET PO SCH (08:55)
[2024-07-25] MEDS: METOPROLOL XL 25 MG TAB PO SCH (08:55)
[2024-07-25] MEDS: ENOXAPARIN 30 MG/0.3 ML SQ SCH (08:55)
[2024-07-25] MEDS: ASPIRIN 81 MG CHEWABLE TABLET PO SCH (08:55)
[2024-07-25] MEDS: INSULIN GLARGINE 100 UNIT/ML SQ SCH (08:56)
[2024-07-25 13:17] LABS: Absolute Eosinophils 0.1 K/uL (0-0.5); Absolute Lymphocytes (CBC) 1.3 K/uL (0.7-4.9); Absolute Monocytes 0.6 K/uL (0.1-1.3); Absolute Neutrophil 1.6 K/uL (1.8-8.0); Basophils % 1.2 % (0-1.3); Eosinophils % 1.8 % (0-4.4); Hematocrit 29.9 % (36.0-45.0); Hemoglobin 9.9 g/dL (12.0-15.0); Lymphocytes % 36.1 % (15.3-44.8); MCH 30.5 pg (27.0-35.0); MCHC 33.2 g/dL (32.0-36.0); MCV 91.9 fL (80-100); MPV 9.8 fL (7.6-11.3); Monocytes % 16.8 % (3.3-12.3); Neutrophils % 44.1 % (41.7-73.7); Platelets 91 thou/uL (152-406); RBC Red Blood Cell Count 3.25 M/uL (3.86-4.86); Red Cell Distribution Width 14.1 % (12.1-15.2)
[2024-07-25 13:34] LABS: Albumin 3.5 g/dL (3.4-5.0); Anion Gap 8.9 mEq/L (5.0-15.0); Bilirubin Total 0.5 mg/dL (0.2-1.0); Globulin 3.4 g/dL (2.3-3.5); Potassium 4.9 mEq/L (3.5-5.1); Protein, Total 6.9 g/dL (6.4-8.2)
--- NOTE | 2024-07-25 13:43 | P.PN ---
Subjective Date of Service: 07/25/24 Chief Complaint: SOB Patient reports significant improvement in his shortness of breath. She still reports shortness of breath with exertion. She is tolerating room air. She reports left-sided pleurisy Physical Examination - Vital Signs Temperature: 98.2 F Blood Pressure: 140/63 Pulse: 68 Respirations: 14 Pulse Ox (%): 100 - Studies Laboratory Data (last 24 hrs) 07/24/24 07/24/24 07/24/24 16:25 16:25 16:25 WBC 3.50 L Hgb 9.4 L Hct 27.7 L Plt Count 96 L PT 13.1 H INR 1.18 Sodium 139 Potassium 4.7 BUN 44 H Creatinine 1.78 H Glucose 322 H Magnesium 1.8 Total Bilirubin 0.4 AST 18 ALT 19 Alkaline Phosphatase 97 Lipase 32 Microbiology Data (last 24 hrs): 07/24/24 17:11 Blood - Blood Anaerobic Blood Culture - Final 07/24/24 17:05 Blood - Blood Anaerobic Blood Culture - Final Assessment And Plan - Plan Physical examination General: Alert and oriented x3, NAD, HEENT: Conjunctiva not pale, anicteric sclera Neck: Supple, no elevated JVD Heart: Heart sounds 1 and 2 normal, regular rhythm, normal rate, no pedal edema Lungs: Mild bibasilar rales, adequate breath sounds bilaterally, no rhonchi. Abdomen: Soft, nondistended, nontender, normal bowel sounds. Extremities: No tenderness, no deformity Skin: Normal skin turgor, no rash, no nodules or ulcers. Neuro: No focal motor deficit. Normal speech. Psychiatry: Normal mood, no agitation. Assessment and plan Acute on chronic diastolic heart failure Mitral regurgitation Left-sided pleural effusion. Clinically improved Continue IV Lasix Patient is currently tolerating room air. Continue home medications Patient is being evaluated for valvular regurgitations surgery/clip placement Cardiology consulted. Hypertension Resume home dose metoprolol Hyperlipidemia Continue statin CKD stage III Monitor renal parameters Type 2 diabetes Insulin sliding scale Accu-Chek before every meal and at bedtime Anemia of chronic disease Stable Monitor H&H closely CAD Continue home medications. Left pleural effusion/atelectasis Empiric antibiotics. IV Lasix Incentive spirometry. DVT prophylaxis: Lovenox Advanced directive full code Discharge Plan: Home Plan to discharge in: 48 Hours
[2024-07-25 15:22] LABS: Specific Gravity 1.024 (1.005-1.030); Sqamous Epithelial <5 /HPF (None Seen); Urine Bacteria <20 /HPF (<20); Urine Bilirubin NEGATIVE (Negative); Urine Blood 1+ (Negative); Urine Clarity Clear (Clear); Urine Color Light-Yellow (Yellow); Urine Crystals Unidentified Few /HPF (None Seen); Urine Culture Reflex Order REFLEXED; Urine Glucose 3+ (Negative); Urine Ketones NEGATIVE (Negative); Urine Microscopic Reflex YN ORDER UMIC; Urine Mucus Slight /HPF (None Seen); Urine Nitrite NEGATIVE (Negative); Urine Protein 1+ (Negative); Urine RBC 21-50 /HPF (None Seen); Urine Urobilinogen Normal (Normal); Urine WBC Clump Rare /HPF (None Seen); Urine Yeast (Budding) Trace /HPF (None Seen); Urine pH 5.5 (5.0-7.0)
[2024-07-25] MEDS ORDERED: HOME MED 1 EA UNK (Potassium Chloride [Potassium Chloride] 10 MEQ Tab.Er.Prt) PO SCH (16:30)
[2024-07-25] MEDS: ATORVASTATIN 40 MG TAB PO SCH (21:24)
[2024-07-26 07:07] LABS: Absolute Eosinophils 0.1 K/uL (0-0.5); Absolute Lymphocytes (CBC) 1.3 K/uL (0.7-4.9); Absolute Monocytes 0.6 K/uL (0.1-1.3); Absolute Neutrophil 1.1 K/uL (1.8-8.0); Eosinophils % 1.9 % (0-4.4); Hematocrit 24.2 % (36.0-45.0); Hemoglobin 8.1 g/dL (12.0-15.0); Lymphocytes % 41.3 % (15.3-44.8); MCH 30.5 pg (27.0-35.0); MCHC 33.6 g/dL (32.0-36.0); MCV 90.8 fL (80-100); MPV 9.7 fL (7.6-11.3); Monocytes % 19.8 % (3.3-12.3); Nucleated Red Blood Cells % 0.1 % (0-0); Platelets 83 thou/uL (152-406); RBC Red Blood Cell Count 2.66 M/uL (3.86-4.86); Red Cell Distribution Width 14.2 % (12.1-15.2)
[2024-07-26 07:18] LABS: Anion Gap 10.5 mEq/L (5.0-15.0); Potassium 4.5 mEq/L (3.5-5.1)
[2024-07-26] MEDS ORDERED: METOPROLOL XL 25 MG TAB PO SCH (09:00)
[2024-07-26] MEDS ORDERED: HOME MED 1 EA UNK (Cyanocobalamin (Vitamin B-12) [Vitamin B12] 5,000 MCG Tab.Rapdis) SL SCH (09:00)
[2024-07-26 12:31] LABS: Blood Morphology Comment NOT SEEN (NOT SEEN); Platelet Estimate DECR; White Blood Cell Scan OK (OK)
--- NOTE | 2024-07-26 12:36 | P.DS ---
Admission Date: 07/24/24 Discharge Date: 07/26/24 Disposition: ROUTINE DISCHARGE Discharge Condition: FAIR Reason for Admission: SOB Brief History of Present Illness: 79 yrs old Female with past medical history of hypertension, hyperlipidemia, diabetes, COPD, CHF, CAD status post PCI was brought to the ER with shortness of breath for 1 day duration, became progressively worse and associated with cough with mucoid expectoration and left-sided pleurisy. Patient has admitted previously with similar symptoms and was sent to [place] for possible CHASE and was told about valve leak and proposed to have a clip surgery which she is awaiting. Patient was assessed in the ER, chest x-ray showed [id number] left pleural effusion. No sepsis, no leukocytosis no reported or recorded fever. Patient was admitted for further management. Vital Signs/Physical Exam: Temp Pulse Resp BP Pulse Ox 98.0 F 68 16 131/60 99 07/26/24 12:00 07/26/24 12:00 07/26/24 12:00 07/26/24 12:00 07/26/24 12:00 Laboratory Data at Discharge: WBC 3.10 thou/uL (4.3-10.9) L 07/26/24 06:20 Hgb 8.1 g/dL (12.0-15.0) L D 07/26/24 06:20 Hct 24.2 % (36.0-45.0) L 07/26/24 06:20 Plt Count 83 thou/uL (152-406) L 07/26/24 06:20 PT 13.1 SECONDS (9.4-12.5) H 07/24/24 16:25 INR 1.18 07/24/24 16:25 Sodium 138 mEq/L (136-145) 07/26/24 06:20 Potassium 4.5 mEq/L (3.5-5.1) 07/26/24 06:20 BUN 50 mg/dL (7-18) H 07/26/24 06:20 Creatinine 1.51 mg/dL (0.55-1.02) H 07/26/24 06:20 Glucose 220 mg/dL (74-106) H 07/26/24 06:20 Magnesium 1.8 mg/dL (1.6-2.4) 07/24/24 16:25 Total Bilirubin 0.5 mg/dL (0.2-1.0) 07/25/24 12:51 AST 19 U/L (15-37) 07/25/24 12:51 ALT 21 U/L (13-56) 07/25/24 12:51 Alkaline Phosphatase 96 U/L (45-117) 07/25/24 12:51 Lipase 32 U/L (13-75) 07/24/24 16:25 Home Medications: Insulin Glargine Human [Lantus*] 12 units SQ BID 05/09/18 Aspirin Chewable [Aspirin Chewable*] 81 mg PO DAILY #30 tab.chew 09/03/22 Ipratropium Neb [Atrovent*] 0.5 mg NEB [id number] #60 amp 09/03/22 Atorvastatin Calcium [Lipitor] 40 mg PO BEDTIME 10/10/22 Albuterol Neb [Proventil 0.083% Neb Soln] 2.5 mg NEB [id number] PRN #60 amp 10/18/22 Cyanocobalamin (Vitamin B-12) [Vitamin B12] 5,000 mcg SL DAILY #30 tab 10/18/22 Tirzepatide [Mounjaro] 5 mg SQ EVERY 7TH DAY 05/31/24 Loperamide [Imodium*] 2 mg PO UD PRN 07/05/24 Furosemide 40 mg PO BIDAC #60 tab 07/07/24 Metoprolol Succinate 25 mg PO DAILY 07/24/24 Azithromycin [Zithromax] 500 mg PO DAILY #5 tab 07/26/24 Benzonatate [Tessalon Perle*] 100 mg PO TID PRN #30 cap 07/26/24 Cefdinir [Cefdinir*] 300 mg PO BID #14 cap 07/26/24 Codeine/APAP [Tylenol W/Codeine #3 tab] 1 tab PO Q6HP PRN #20 tab 07/26/24 Losartan Potassium [Cozaar*] 25 mg PO DAILY 07/26/24 New Medications: Codeine/APAP [Tylenol W/Codeine #3 tab] 1 tab PO Q6HP PRN #20 tab PRN Reason: Pain Cefdinir [Cefdinir*] 300 mg PO BID #14 cap Benzonatate [Tessalon Perle*] 100 mg PO TID PRN #30 cap PRN Reason: Cough Azithromycin [Zithromax] 500 mg PO DAILY #5 tab Diet: AHA Activity: Fall precautions Followup: Shawn Quintanilla DO [Primary Care Provider] - 1 Week
--- NOTE | 2024-07-26 16:40 | P.PN ---
Subjective Date of Service: 07/26/24 Chief Complaint: SOB Patient patient reports no significant change from yesterday. She still reports shortness of breath with exertion. She also reports headache. She is tolerating room air. She reports left-sided pleurisy Physical Examination - Vital Signs Temperature: 98.0 F Blood Pressure: 131/60 Pulse: 68 Respirations: 16 Pulse Ox (%): 99 - Studies Microbiology Data (last 24 hrs): 07/24/24 17:05 Blood - Blood Anaerobic Blood Culture - Final 07/24/24 17:11 Blood - Blood Anaerobic Blood Culture - Final Assessment And Plan - Plan Physical examination General: Alert and oriented x3, NAD, HEENT: Conjunctiva not pale, anicteric sclera Neck: Supple, no elevated JVD Heart: Heart sounds 1 and 2 normal, regular rhythm, normal rate, no pedal edema Lungs: Mild bibasilar rales, adequate breath sounds bilaterally, no rhonchi. Abdomen: Soft, nondistended, nontender, normal bowel sounds. Extremities: No tenderness, no deformity Skin: Normal skin turgor, no rash, no nodules or ulcers. Neuro: No focal motor deficit. Normal speech. Psychiatry: Normal mood, no agitation. Assessment and plan Acute on chronic diastolic heart failure Mitral regurgitation Left-sided pleural effusion. Clinically improved IV lasix Patient is currently tolerating room air. Continue home medications Patient is being evaluated for valvular regurgitations surgery/clip placement Activity as tolerated. Hypertension Continue home dose metoprolol Hyperlipidemia Continue statin CKD stage III Monitor renal parameters Type 2 diabetes Insulin sliding scale Accu-Chek before every meal and at bedtime Anemia of chronic disease Stable Monitor H&H closely CAD Continue home medications. Left pleural effusion/atelectasis Associated pleurisy. Empiric antibiotics. IV Lasix Incentive spirometry. Discharge Plan: Home
[2024-07-26] MEDS: FUROSEMIDE 40 MG/4 ML VIAL IV SCH (18:44)
[2024-07-26] MEDS: CEFTRIAXONE 1,000 MG in NA CHLORIDE 0.9% 50 ML IVPB SCH (18:55)
[2024-07-26] MEDS: AZITHROMYCIN IV 500 MG in NA CHLORIDE 0.9% 250 ML IVPB SCH (18:57)
[2024-07-27 08:27] VITALS: BP 112/59; TEMP 98
[2024-07-27 08:46] VITALS: O2SAT 97
[2024-07-27 09:27] LABS: Anion Gap 8.9 mEq/L (5.0-15.0); Magnesium 1.7 mg/dL (1.6-2.4); Phosphorus 4.7 mg/dL (2.5-4.9); Potassium 3.9 mEq/L (3.5-5.1)
--- NOTE | 2024-07-27 10:12 | P.DS ---
Admission Date: 07/24/24 Discharge Date: 07/27/24 Disposition: ROUTINE DISCHARGE Discharge Condition: FAIR Reason for Admission: SOB Brief History of Present Illness: 79yo F, PMH: hypertension, hyperlipidemia, diabetes, COPD, CHF, CAD status post PCI Patient brought to ER with shortness of breath which started yesterday and has been progressively getting worse associated with cough with mucoid expectoration. She has difficulty in ambulating. Even with minimal movements she is starting to get short of breath. Patient has admitted previously with similar symptoms and was sent to [place] for possible CHASE and was told about v alve leak and proposed to have a clip surgery which she is awaiting. Patient denies any fever or chills. No nausea vomiting or diarrhea. No sick contacts. Hospital Course: Problem List: Acute on chronic diastolic heart failure Left pleural effusion Possible Pneumonia Mitral regurgitation Hypertension Hyperlipidemia CKD3 Anemia of chronic disease Hx CAD Physician discharge instructions: Patient presented with worsening shortness of breath, cough secondary to acute on chronic CHF exacerbation / left pleural effusion. Chest xray on admission noted left basilar lung opacity likely small left pleural effusion with mild atelectasis vs pneumonia. CT chest noted small-mod left pleural effusion, minimal tree-in-bud opacities in right lung. She received IV lasix while hospitalized in addition to antitussives and empiric antibiotics, and had improvement of her symptoms. Given her symptoms, risk factors, and inability to completely rule out pneumonia on imaging, she was empirically covered with antibiotics and discharged to complete a course of antibiotics. Initialy urinalysis was positive for leuk esterase and WBC, but no bacteria, initial urine culture results have been without growth, and she denied any urinary changes/symptoms. She remained afebrile without leukocytosis throughout hospitalization. Urine and blood cultures have been without growth since 07/24. Patient is to complete 1 more week of cefdinir and 5 more days of azithromycin on discharge. Patient was feeling better, breathing more comfortably on room air, afebrile without leukocytosis and deemed stable for discharge. Medications: Cefdinir 300 mg twice daily for 7 days Azithromycin 500 mg daily for 5 days tylenol #3 as needed for pain Tessalon Perles as needed for cough refills sent to [facility] for home losartan, metoprolol Continue other home medications as previously prescribed Follow up: PCP 3-5 days Cardiology Please call to schedule / confirm appointments Physical Exam: GEN: Alert, oriented, NAD HEENT: Normal conjunctiva, sclera anicteric, CV: Regular rate and rhythm, no edema, +murmur Pulm: Nonlabored respirations on room air, diminished at bases bilaterally ABD: soft, nontender, nondistended Neuro: Normal speech, normal affect Vital Signs/Physical Exam: Temp Pulse Resp BP Pulse Ox 98.0 F 64 16 112/59 L 98 07/27/24 08:00 07/27/24 09:35 07/27/24 08:00 07/27/24 09:35 07/27/24 08:00 Laboratory Data at Discharge: WBC 3.10 thou/uL (4.3-10.9) L 07/26/24 06:20 Hgb 8.1 g/dL (12.0-15.0) L D 07/26/24 06:20 Hct 24.2 % (36.0-45.0) L 07/26/24 06:20 Plt Count 83 thou/uL (152-406) L 07/26/24 06:20 PT 13.1 SECONDS (9.4-12.5) H 07/24/24 16:25 INR 1.18 07/24/24 16:25 Sodium 140 mEq/L (136-145) 07/27/24 08:57 Potassium 3.9 mEq/L (3.5-5.1) D 07/27/24 08:57 BUN 54 mg/dL (7-18) H 07/27/24 08:57 Creatinine 1.55 mg/dL (0.55-1.02) H 07/27/24 08:57 Glucose 108 mg/dL (74-106) H 07/27/24 08:57 Phosphorus 4.7 mg/dL (2.5-4.9) 07/27/24 08:57 Magnesium 1.7 mg/dL (1.6-2.4) 07/27/24 08:57 Total Bilirubin 0.5 mg/dL (0.2-1.0) 07/25/24 12:51 AST 19 U/L (15-37) 07/25/24 12:51 ALT 21 U/L (13-56) 07/25/24 12:51 Alkaline Phosphatase 96 U/L (45-117) 07/25/24 12:51 Lipase 32 U/L (13-75) 07/24/24 16:25 Home Medications: Insulin Glargine Human [Lantus*] 12 units SQ BID 05/09/18 Aspirin Chewable [Aspirin Chewable*] 81 mg PO DAILY #30 tab.chew 09/03/22 Ipratropium Neb [Atrovent*] 0.5 mg NEB [id number] #60 amp 09/03/22 Atorvastatin Calcium [Lipitor] 40 mg PO BEDTIME 10/10/22 Albuterol Neb [Proventil 0.083% Neb Soln] 2.5 mg NEB [id number] PRN #60 amp 10/18/22 Cyanocobalamin (Vitamin B-12) [Vitamin B12] 5,000 mcg SL DAILY #30 tab 10/18/22 Tirzepatide [Mounjaro] 5 mg SQ EVERY 7TH DAY 05/31/24 Loperamide [Imodium*] 2 mg PO UD PRN 07/05/24 Furosemide 40 mg PO BIDAC #60 tab 07/07/24 Metoprolol Succinate 25 mg PO DAILY 07/24/24 Azithromycin [Zithromax] 500 mg PO DAILY #5 tab 07/26/24 Benzonatate [Tessalon Perle*] 100 mg PO TID PRN #30 cap 07/26/24 Cefdinir [Cefdinir*] 300 mg PO BID #14 cap 07/26/24 Codeine/APAP [Tylenol W/Codeine #3 tab] 1 tab PO Q6HP PRN #20 tab 07/26/24 Losartan Potassium [Cozaar*] 25 mg PO DAILY 07/26/24 New Medications: Codeine/APAP [Tylenol W/Codeine #3 tab] 1 tab PO Q6HP PRN #20 tab PRN Reason: Pain Cefdinir [Cefdinir*] 300 mg PO BID #14 cap Benzonatate [Tessalon Perle*] 100 mg PO TID PRN #30 cap PRN Reason: Cough Azithromycin [Zithromax] 500 mg PO DAILY #5 tab Physician Discharge Instructions: Physician discharge instructions: Patient presented with worsening shortness of breath, cough secondary to acute on chronic CHF exacerbation / left pleural effusion. Chest xray on admission noted left basilar lung opacity likely small left pleural effusion with mild atelectasis vs pneumonia. CT chest noted small-mod left pleural effusion, minimal tree-in-bud opacities in right lung. She received IV lasix while hospitalized in addition to antitussives and empiric antibiotics, and had improvement of her symptoms. Given her symptoms, risk factors, and inability to completely rule out pneumonia on imaging, she was empirically covered with antibiotics and discharged to complete a course of antibiotics. Initialy urinalysis was positive for leuk esterase and WBC, but no bacteria, initial urine culture results have been without growth, and she denied any urinary changes/symptoms. She remained afebrile without leukocytosis throughout hospitalization. Urine and blood cultures have been without growth since 07/24. Patient is to complete 1 more week of cefdinir and 5 more days of azithromycin on discharge. Patient was feeling better, breathing more comfortably on room air, afebrile without leukocytosis and deemed stable for discharge. Medications: Cefdinir 300 mg twice daily for 7 days Azithromycin 500 mg daily for 5 days tylenol #3 as needed for pain Tessalon Perles as needed for cough refills sent to [facility] for home losartan, metoprolol Continue other home medications as previously prescribed Follow up: PCP 3-5 days Cardiology Please call to schedule / confirm appointments Diet: AHA Activity: Fall precautions Followup: Shawn Quintanilla DO [Primary Care Provider] - 1 Week Time spent managing pt's care (in minutes): 45
--- NOTE | 2024-07-27 12:59 | EKG ---
Test Date: 2024-07-24 Test Time: 15:32:08 Veneer Slicing Machine Operator: LASHONDA MEASUREMENT RESULTS: Intervals: Rate: 55 [place]: 220 QRSD: 96 QT: 446 QTc: 426 [place]: P: 61 [place]: 220 QRS: 14 T: 172 INTERPRETIVE STATEMENTS: Sinus bradycardia with 1st degree AV block Anteroseptal infarct, age undetermined T wave abnormality, consider inferolateral ischemia Abnormal ECG Compared to ECG 07/24/2024 15:31:20 First degree AV block now present T-wave abnormality now present Atrial fibrillation no longer present ST (T wave) deviation no longer present Myocardial infarct finding still present Possible ischemia still present Electronically Signed On 07-27-24 12:52:12 CDT by Jignesh Valenzuela
--- NOTE | 2024-07-27 13:00 | EKG ---
Test Date: 2024-07-24 Test Time: 15:31:20 Pick Up Driver: LASHONDA MEASUREMENT RESULTS: Intervals: Rate: 61 [place]: QRSD: 110 QT: 454 QTc: 457 [place]: P: [place]: QRS: 4 T: 143 INTERPRETIVE STATEMENTS: Atrial fibrillation Anterior infarct, age undetermined ST & T wave abnormality, consider lateral ischemia Abnormal ECG Compared to ECG 07/05/2024 10:28:35 ST (T wave) deviation now present Sinus tachycardia no longer present T-wave abnormality no longer present Myocardial infarct finding still present Possible ischemia still present Electronically Signed On 07-27-24 12:52:16 CDT by Jignesh Valenzuela
== END 2024-07-27 11:50 | disposition home or self-care (01) | DRG 291 ==
LOC: ER 15:03 → ERHOLD 20:46 → 4TH 21:12
PROVIDERS: ADMIT Family Medicine; ATTEND Hospitalist
DX: I13.0 Hypertensive heart and chronic kidney disease with heart failure and stage 1 through stage 4 chronic kidney disease, or unspecified chronic kidney disease (principal); I50.33 Acute on chronic diastolic (congestive) heart failure; J18.9 Pneumonia, unspecified organism; J44.1 Chronic obstructive pulmonary disease with (acute) exacerbation; J44.0 Chronic obstructive pulmonary disease with (acute) lower respiratory infection; N18.30 Chronic kidney disease, stage 3 unspecified; E11.22 Type 2 diabetes mellitus with diabetic chronic kidney disease; E11.40 Type 2 diabetes mellitus with diabetic neuropathy, unspecified; D63.1 Anemia in chronic kidney disease; E78.5 Hyperlipidemia, unspecified; I34.0 Nonrheumatic mitral (valve) insufficiency; I25.10 Atherosclerotic heart disease of native coronary artery without angina pectoris; I25.2 Old myocardial infarction; Z79.4 Long term (current) use of insulin; Z88.1 Allergy status to other antibiotic agents; Z95.1 Presence of aortocoronary bypass graft; Z95.5 Presence of coronary angioplasty implant and graft; Z79.82 Long term (current) use of aspirin; Z79.899 Other long term (current) drug therapy
CPT/HCPCS: 36415; 71045; 71250; 80048; 80053; 80076; 81001; 82947; 83605; 83690; 83735; 83880; 84100; 84484; 85025; 85610; 87040; 87086; 87088; 93005; 94760; 96365; 99285; J0696; J1650; J1940; J7050; J7614; J7644

== ENCOUNTER 2024-08-26 12:47 | Emergency (ER) | payer OTHER ==
--- NOTE | 2024-08-26 13:40 | RAD REPORT ---
EXAMINATION: XR LEFT FOOT CLINICAL INDICATION: PAIN TECHNIQUE: Multiple projections of the left foot were obtained. COMPARISON: No prior exam. FINDINGS: Mild diffuse osteopenia. Tiny calcaneal spurs. No acute fracture or dislocation.
--- NOTE | 2024-08-26 14:45 | ER ---
Nurse's Notes [facility] Name: Alyson Ibarra Age: 79 yrs Sex: Female : 1945 Arrival Date: 08/26/2024 Time: 12:47 Bed 26 Private MD: Diagnosis: Pain in left foot;Pain in left ankle and joints of left foot;Unspecified kidney failure-CHRONIC Presentation: 08/26 13:11 Chief complaint: Patient states: c/o pain to left foot. Woke up yesterday with pain. me1 Took norco at about 12:30 today. Pain is 10/10. Denies injury. Coronavirus screen: Vaccine status: Patient reports being unvaccinated. Ebola Screen: No symptoms or risks identified at this time. Initial Sepsis Screen: Does the patient meet any 2 criteria? No. Patient's initial sepsis screen is negative. Does the patient have a suspected source of infection? No. Patient's initial sepsis screen is negative. Risk Assessment: Do you want to hurt yourself or someone else? Patient reports no desire to harm self or others. Onset of symptoms was August 25, 2024. 13:11 Method Of Arrival: Wheelchair la1 13:11 Acuity: LETY 4 me1 Triage Assessment: 13:22 General: Appears in no apparent distress. well groomed, well developed, well nourished, me1 Behavior is calm, cooperative, appropriate for age, Reports. Pain: Complains of pain in left foot Pain does not radiate. Pain currently is 10 out of 10 on a pain scale. Quality of pain is described as aching, Pain began suddenly, Is continuous. EENT: No signs and/or symptoms were reported regarding the EENT system. Neuro: Level of Consciousness is awake, alert, obeys commands, Oriented to person, place, time, situation, Appropriate for age. Cardiovascular: Patient's skin is warm and dry. Respiratory: Airway is patent Respiratory effort is even, unlabored, Respiratory pattern is regular, symmetrical. GI: No signs and/or symptoms were reported involving the gastrointestinal system. : No signs and/or symptoms were reported regarding the genitourinary system. Derm: Skin is intact, is healthy with good turgor, Skin is pink, warm \T\ dry. Musculoskeletal: Circulation, motion, and sensation intact. Range of motion: intact in all extremities, Reports pain in left foot. Historical: - Allergies: 13:22 Cipro; me1 - PMHx: 13:22 CAD; CHF; COPD; Diabetes - IDDM; Hyperlipidemia; Hypertension; neuropathy; me1 - PSHx: 13:22 Heart Stents; hernia; me1 - Immunization history:: Adult Immunizations up to date. - Infectious Disease History:: Denies. - Social history:: Smoking status: Patient denies any tobacco usage or history of. - Family history:: not pertinent. Screenin:24 [facility] ED Fall Risk Assessment (Adult) History of falling in the last 3 months, me1 including since admission No falls in past 3 months (0 pts) Confusion or Disorientation No (0 pts) Intoxicated or Sedated No (0 pts) Impaired Gait No (0 pts) Mobility Assist Device Used No (0 pt) Altered Elimination No (0 pt) Score/Fall Risk Level 0 - 2 = Low Risk Maintained a safe environment, Provided non-skid footwear, Hourly rounding (assess needs \T\ fall precautionary measures) done. Abuse screen: Denies threats or abuse. Nutritional screening: No deficits noted. Tuberculosis screening: No symptoms or risk factors identified. Assessment: 13:24 General: See triage assessment. . me1 Vital Signs: 13:11 BP 129 / 56; Pulse 89; Resp 18; Temp 98.4; Pulse Ox 100% ; Weight 65.32 kg; Height 5 me1 ft. 5 in. ; Pain 10/10; 14:00 BP 133 / 50; Pulse 74; Resp 16; Pulse Ox 100% ; me1 15:00 BP 132 / 60; Pulse 77; Resp 18; Temp 98.4; Pulse Ox 100% ; Pain 4/10; me1 13:11 Body Mass Index 23.96 (65.32 kg, 165.1 cm) me1 13:11 Pain Scale: Adult me1 15:00 Pain Scale: Adult la1 ED Course: 12:51 Patient arrived in ED. im 12:58 Jarrod Bonner MD is Attending Physician. carey 13:02 Verónica Oliver RN is Primary Nurse. me1 13:22 Triage completed. me1 13:22 Arm band placed on Patient placed in an exam room. me1 13:24 Patient has correct armband on for positive identification. Bed in low position. Call me1 light in reach. Side rails up X2. Provided Education on: POC. Verbalized understanding. . Client placed on continuous cardiac and pulse oximetry monitoring. NIBP monitoring applied. Pulse ox on. NIBP on. 13:24 No provider procedures requiring assistance completed. Patient did not have IV access me1 during this emergency room visit. 13:30 Foot Left 3 View XRAY In Process Unspecified. EDMS 14:44 Oscar Sherwood MD is Referral Physician. carey 14:56 Ankle Left 3 View XRAY In Process Unspecified. EDMS 15:11 Ankle Left 3 View In Process Unspecified. EDMS Administered Medications: 14:59 Drug: Ibuprofen PO 400 mg PO once Route: PO; me1 15:20 Follow up: Response: No adverse reaction; Pain is decreased me1 14:59 Drug: Dexamethasone PO 10 mg PO once Route: PO; me1 15:20 Follow up: Response: No adverse reaction; Pain is decreased me1 14:59 Drug: HYDROcodone-acetaminophen PO 5 mg-325 mg 1 tabs PO once Route: PO; me1 15:20 Follow up: Response: No adverse reaction; Pain is decreased me1 Medication: 13:24 VIS not applicable for this client. me1 Outcome: 14:44 Discharge ordered by . carey 15:21 Discharged to home via wheelchair, me1 15:21 Condition: stable 15:21 Discharge instructions given to patient, Instructed on discharge instructions, follow up and referral plans. medication usage, Demonstrated understanding of instructions, follow-up care, medications, Prescriptions given X 3, 15:21 Patient left the ED. me1 Signatures: Dispatcher [employer] Jarrod Beckett MD MD cha Mendoza, Itzel im Eddleman, Michelle, RN RN me1
--- NOTE | 2024-08-26 14:45 | EDPHYS ---
Physician Documentation [facility] Name: Alyson Ibarra Age: 79 yrs Sex: Female : 1945 Arrival Date: 08/26/2024 Time: 12:47 Bed 26 Private MD: RUBINA Physician Jarrod Bonner HPI: 08/26 14:35 This 79 yrs old Female presents to ER via Wheelchair with complaints of Foot carey Pain - left. 14:35 The patient presents with decreased range of motion, pain, that is acute. The carey complaints affect the left foot. Context: The problem was sustained at an unknown location, resulted from an unknown cause, Mechanism of Injury: Unknown the patient can partially bear weight, the patient is not able to ambulate. Onset: The symptoms/episode began/occurred 3 day(s) ago. Modifying factors: The symptoms are alleviated by elevation of extremity, the symptoms are aggravated by weight bearing, movement, wearing shoes. Associated signs and symptoms: The patient has no apparent associated signs or symptoms. Severity of symptoms: At their worst the symptoms were mild, moderate, in the emergency department the symptoms are unchanged. The patient has not experienced similar symptoms in the past. Historical: - Allergies: 13:22 Cipro; me1 - PMHx: 13:22 CAD; CHF; COPD; Diabetes - IDDM; Hyperlipidemia; Hypertension; neuropathy; me1 - PSHx: 13:22 Heart Stents; hernia; me1 - Immunization history:: Adult Immunizations up to date. - Infectious Disease History:: Denies. - Social history:: Smoking status: Patient denies any tobacco usage or history of. - Family history:: not pertinent. ROS: 14:35 Constitutional: Negative for fever, chills, and weight loss, Eyes: Negative for injury, carey pain, redness, and discharge, ENT: Negative for injury, pain, and discharge, Neck: Negative for injury, pain, and swelling, Cardiovascular: Negative for chest pain, palpitations, and edema, Respiratory: Negative for shortness of breath, cough, wheezing, and pleuritic chest pain, Abdomen/GI: Negative for abdominal pain, nausea, vomiting, diarrhea, and constipation, Back: Negative for injury and pain, : Negative for injury, bleeding, discharge, and swelling, Skin: Negative for injury, rash, and discoloration, Neuro: Negative for headache, weakness, numbness, tingling, and seizure, Psych: Negative for depression, anxiety, suicide ideation, homicidal ideation, and hallucinations, Allergy/Immunology: Negative for hives, rash, and allergies, Endocrine: Negative for neck swelling, polydipsia, polyuria, polyphagia, and marked weight changes, Hematologic/Lymphatic: Negative for swollen nodes, abnormal bleeding, and unusual bruising, 14:35 MS/extremity: Positive for decreased range of motion, pain, swelling, tenderness, of the left lateral malleolus, left medial malleolus and dorsum of left foot, Exam: 14:35 Constitutional: This is a well developed, well nourished patient who is awake, alert, carey and in no acute distress. Head/Face: Normocephalic, atraumatic. Eyes: Pupils equal round and reactive to light, extra-ocular motions intact. Lids and lashes normal. Conjunctiva and sclera are non-icteric and not injected. Cornea within normal limits. Periorbital areas with no swelling, redness, or edema. ENT: Nares patent. No nasal discharge, no septal abnormalities noted. Tympanic membranes are normal and external auditory canals are clear. Oropharynx with no redness, swelling, or masses, exudates, or evidence of obstruction, uvula midline. Mucous membranes moist. Neck: Trachea midline, no thyromegaly or masses palpated, and no cervical lymphadenopathy. Supple, full range of motion without nuchal rigidity, or vertebral point tenderness. No Meningismus. Chest/axilla: Normal chest wall appearance and motion. Nontender with no deformity. No lesions are appreciated. Cardiovascular: Regular rate and rhythm with a normal S1 and S2. No gallops, murmurs, or rubs. Normal PMI, no JVD. No pulse deficits. Respiratory: Lungs have equal breath sounds bilaterally, clear to auscultation and percussion. No rales, rhonchi or wheezes noted. No increased work of breathing, no retractions or nasal flaring. Abdomen/GI: Soft, non-tender, with normal bowel sounds. No distension or tympany. No guarding or rebound. No evidence of tenderness throughout. Back: No spinal tenderness. No costovertebral tenderness. Full range of motion. Female : Normal external genitalia. Skin: Warm, dry with normal turgor. Normal color with no rashes, no lesions, and no evidence of cellulitis. Neuro: Awake and alert, GCS 15, oriented to person, place, time, and situation. Cranial nerves II-XII grossly intact. Motor strength 5/5 in all extremities. Sensory grossly intact. Cerebellar exam normal. Normal gait. Psych: Awake, alert, with orientation to person, place and time. Behavior, mood, and affect are within normal limits. 14:35 Musculoskeletal/extremity: ROM: limited active range of motion due to pain, limited passive range of motion due to pain, Circulation is intact in all extremities. Sensation intact. Compartment Syndrome exam of affected extremity: is normal. Weight bearing: is unable to bear weight, DVT Exam: negative Homans' sign noted on exam, no appreciated bluish discoloration, no erythema, no increased warmth, pain, swelling, tenderness, Vital Signs: 13:11 BP 129 / 56; Pulse 89; Resp 18; Temp 98.4; Pulse Ox 100% ; Weight 65.32 kg; Height 5 me1 ft. 5 in. ; Pain 10/10; 14:00 BP 133 / 50; Pulse 74; Resp 16; Pulse Ox 100% ; me1 15:00 BP 132 / 60; Pulse 77; Resp 18; Temp 98.4; Pulse Ox 100% ; Pain 4/10; me1 13:11 Body Mass Index 23.96 (65.32 kg, 165.1 cm) pa1 13:11 Pain Scale: Adult me1 15:00 Pain Scale: Adult me1 MDM: 12:58 Medical Screening Exam initiated [facility] 14:38 Differential diagnosis: fracture, sprain, arthritis, gout, cellulitis. Data reviewed: [facility] vital signs, nurses notes. Consideration of Admission/Observation Escalation of care including admission/observation considered. I considered the following discharge prescriptions or medication management in the emergency department Medications were administered in the Emergency Department. See MAR. Independent interpretation of the following test(s) in the Emergency Department EKG: See my EKG interpretation above. Test considered but Not performed: Labs: NO LABS. Historians other than the Patient: PT WELL INFORMED. Care significantly affected by the following chronic conditions: Diabetes, Hypertension, Chronic Obstructive Pulmonary Disease. Counseling: I had a detailed discussion with the patient and/or guardian regarding the historical points, exam findings, and any diagnostic results supporting the discharge/admit diagnosis, lab results, radiology results. 08/26 12:58 Order name: Foot Left 3 View XRAY; Complete Time: 14:45 carey 08/26 14:32 Order name: Ankle Left 3 View XRAY carey 08/26 15:02 Order name: Ankle Left 3 View EDMS 08/26 14:32 Order name: Walking boot; Complete Time: 15:05 carey Administered Medications: 14:59 Drug: Ibuprofen PO 400 mg PO once Route: PO; me1 15:20 Follow up: Response: No adverse reaction; Pain is decreased me1 14:59 Drug: Dexamethasone PO 10 mg PO once Route: PO; me1 15:20 Follow up: Response: No adverse reaction; Pain is decreased me1 14:59 Drug: HYDROcodone-acetaminophen PO 5 mg-325 mg 1 tabs PO once Route: PO; me1 15:20 Follow up: Response: No adverse reaction; Pain is decreased me1 Disposition Summary: 08/26/24 14:44 Discharge Ordered Notes: Location: Home carey Problem: new carey Symptoms: have improved carey Condition: Stable carey Diagnosis - Pain in left foot carey - Pain in left ankle and joints of left foot carey - Unspecified kidney failure - CHRONIC carey Followup: carey - With: Private Physician - When: 2 - 3 days - Reason: Recheck today's complaints, Continuance of care, Re-evaluation by your physician Followup: carey - With: Oscar Sherwood MD - When: 2 - 3 days - Reason: Recheck today's complaints, Re-evaluation by your physician Discharge Instructions: - Discharge Summary Sheet carey - Joint Pain carey - Arthritis carey - Musculoskeletal Pain carey - How to Use Cold Therapy, [id number] carey - Arthritis, [id number] carey - Ankle Pain carey - How to Use Cold Therapy carey - Joint Pain, [id number]-[id number]-[id number] carey - Foot Pain carey Forms: - Medication Reconciliation Form carey - Antibiotic Education carey - Prescription Opioid Use carey - Patient Portal Instructions [facility] - Leadership Thank You Letter [facility] Prescriptions: - acetaminophen-codeine 300-30 mg Oral tablet - take 1 tablet ORAL route every 4-6 hours; 20 tablet; Refills: 0, Product carey Selection Permitted - Celebrex 100 mg Oral capsule - take 1 tablet ORAL route once daily As needed take with food; 14 capsule; carey Refills: 0, Product Selection Permitted - Medrol (Lobo) 4 mg Oral Tablets, Dose Pack - take 1 tablet ORAL route as directed - follow package instructions; 1 packet; carey Refills: 0, Product Selection Permitted Signatures: Dispatcher [employer] Jarrod Beckett MD MD cha Eddleman, Michelle RN RN me1
[2024-08-26] MEDS ORDERED: dexAMETHasone 4 MG TAB ONE (14:56)
[2024-08-26] MEDS ORDERED: IBUPROFEN 400 MG TAB ONE (14:56)
[2024-08-26] MEDS ORDERED: HYDROCODONE/APAP 5/325 MG TAB ONE (14:57)
--- NOTE | 2024-08-26 15:22 | RAD REPORT ---
EXAMINATION: XR LEFT ANKLE CLINICAL INDICATION: Female, 79 years old. PAIN TECHNIQUE: 3 view radiograph of the left ankle were obtained. COMPARISON: No prior exam. FINDINGS: Diffuse osteopenia seen. Small calcaneal spurs. No acute fracture or dislocation. Mild vasc ular atherosclerosis.
[2024-08-26 16:26] VITALS: TEMP 98.4; O2SAT 100
[2024-08-26 16:28] VITALS: BP 132/60
== END 2024-08-26 15:21 | disposition home or self-care (01) ==
LOC: ER 12:47
DX: M25.572 Pain in left ankle and joints of left foot (principal); E11.22 Type 2 diabetes mellitus with diabetic chronic kidney disease; I13.0 Hypertensive heart and chronic kidney disease with heart failure and stage 1 through stage 4 chronic kidney disease, or unspecified chronic kidney disease; N18.9 Chronic kidney disease, unspecified; I50.9 Heart failure, unspecified; Z95.818 Presence of other cardiac implants and grafts
CPT/HCPCS: 73630; 73610 ×2; 99284; J8540

== ENCOUNTER 2025-01-29 09:30 | Inpatient (IN) | payer OTHER ==
[2025-01-29 10:26] LABS: Absolute Lymphocytes (CBC) 0.2 K/uL (0.7-4.9); Absolute Monocytes 1.5 K/uL (0.1-1.3); Absolute Neutrophil 7.3 K/uL (1.8-8.0); Basophils % 0.5 % (0-1.3); Hematocrit 32.9 % (36.0-45.0); Lymphocytes % 2.4 % (15.3-44.8); MCH 31.1 pg (27.0-35.0); MCHC 33.5 g/dL (32.0-36.0); MCV 92.8 fL (80-100); Monocytes % 16.8 % (3.3-12.3); Neutrophils % 80.3 % (41.7-73.7); Platelets 88 thou/uL (152-406); RBC Red Blood Cell Count 3.55 M/uL (3.86-4.86)
[2025-01-29 10:36] LABS: PTT, Activated Partial Thromb 31.3 SECONDS (27.2-37.4); Protime INR 1.43
[2025-01-29 11:05] LABS: Albumin 3.3 g/dL (3.4-5.0); Albumin/Globulin Ratio 0.8 (1.1-1.8); Anion Gap 16.4 mEq/L (5.0-15.0); Bilirubin Total 1.2 mg/dL (0.2-1.0); Potassium 4.4 mEq/L (3.5-5.1); Protein, Total 7.3 g/dL (6.4-8.2)
--- NOTE | 2025-01-29 11:22 | RAD REPORT ---
EXAM: Chest Single View HISTORY: 79 years Female DYSPNEA COMPARISON: 07/24/2024 FINDINGS: LUNGS/PLEURA: Moderate left and small right pleural effusion with diffuse prominence of the pulmonary interstitium. CARDIAC/MEDIASTINUM: Mild cardiomegaly UPPER ABDOMEN: No significant abnormality. BONES: Sternotomy. No acute abnormality. LINES/TUBES/OTHER: N/A IMPRESSION: Moderate left and small right pleural effusion with likely pulmonary edema though bibasilar pneumonia could appear similar.
--- NOTE | 2025-01-29 11:26 | ER ---
Nurse's Notes [facility] Name: Alyson Ibarra Age: 79 yrs Sex: Female : 1945 Arrival Date: 01/29/2025 Time: 09:30 Bed 2 Private MD: Diagnosis: Unspecified combined systolic (congestive) and diastolic (congestive) heart failure Presentation: 01/29 09:44 Chief complaint: Patient states: SOB x 3 weeks. PT reports she has not taken her Lasix ss in 2 days because she is moving and is unsure as to where they are right now. Coronavirus screen: Client denies travel out of the [place] in the last 14 days. Ebola Screen: Patient denies exposure to infectious person. Patient denies travel to an Ebola-affected area in the 21 days before illness onset. Initial Sepsis Screen: Does the patient meet any 2 criteria? No. Patient's initial sepsis screen is negative. Does the patient have a suspected source of infection? No. Patient's initial sepsis screen is negative. Risk Assessment: Do you want to hurt yourself or someone else? Patient reports no desire to harm self or others. Onset of symptoms was January 08, 2025. 09:44 Method Of Arrival: Wheelchair ss 09:44 Acuity: LETY 2 ss Historical: - Allergies: 09:48 Cipro; ss - PMHx: 09:48 CAD; CHF; COPD; Hyperlipidemia; Hypertension; Diabetes - IDDM; neuropathy; ss - PSHx: 09:48 Heart Stents; hernia; Coronary artery bypass graft; ss - Immunization history:: Client reports having NOT received the Covid vaccine. - Infectious Disease History:: Denies. - Social history:: Smoking status: Patient denies any tobacco usage or history of. Screenin:23 [facility] ED Fall Risk Assessment (Adult) History of falling in the last 3 months, hb including since admission No falls in past 3 months (0 pts) Confusion or Disorientation No (0 pts) Intoxicated or Sedated No (0 pts) Impaired Gait No (0 pts) Mobility Assist Device Used No (0 pt) Altered Elimination No (0 pt) Score/Fall Risk Level 0 - 2 = Low Risk Oriented to surroundings, Maintained a safe environment, Educated pt \T\ family on fall prevention, incl call for assistance when getting out of bed. Abuse screen: Denies threats or abuse. Denies injuries from another. Nutritional screening: No deficits noted. Tuberculosis screening: No symptoms or risk factors identified. Assessment: 10:24 General: Appears mildly distressed. Behavior is calm, cooperative. Pain: Denies pain. hb Neuro: Level of Consciousness is awake, alert, obeys commands, Oriented to person, place, time, situation. Cardiovascular: Patient's skin is warm and dry. Rhythm is regular. Respiratory: Airway is patent Respiratory effort is labored, Respiratory pattern is tachypnea. GI: No signs and/or symptoms were reported involving the gastrointestinal system. : No signs and/or symptoms were reported regarding the genitourinary system. EENT: No signs and/or symptoms were reported regarding the EENT system. Derm: Skin is pink, warm \T\ dry. Musculoskeletal: No signs and/or symptoms reported regarding the musculoskeletal system. 12:02 Reassessment: No changes from previously documented assessment. Patient and/or family hb updated on plan of care and expected duration. Pain level reassessed. Vital Signs: 09:44 BP 122 / 97; Pulse 117; Resp 24; Temp 97.8(O); Pulse Ox 98% on R/A; Weight 61.69 kg; ss Height 5 ft. 5 in. ; Pain 0/10; 10:25 BP 103 / 70; Pulse 105; Resp 29; Pulse Ox 98% on R/A; hb 11:30 BP 107 / 74; Pulse 105; Resp 28; Pulse Ox 98% on R/A; hb 12:03 BP 119 / 59; Pulse 105; Resp 25; Pulse Ox 97% on R/A; hb 09:44 Body Mass Index 22.63 (61.69 kg, 165.1 cm) ss 09:44 Pain Scale: Adult ss ED Course: 09:33 Patient arrived in ED. im 09:34 Swati Fonseca FNP-C [facility]. kb 09:34 Sheng Sykes MD is Attending Physician. kb 09:48 Triage completed. ss 09:48 Arm band placed on right wrist. ss 09:56 EKG done, by ED staff, reviewed by Swati RUEDA. hb 10:00 Initial lab(s) drawn, Repeat lab(s) drawn. sent to lab. First set of blood cultures hb drawn by va. 10:16 Initial lab(s) drawn, by me, sent to lab. Second set of blood cultures drawn by me. hb Accessed peripheral vein via ultrasound, utilizing dynamic ultrasound technique using per hospital protocol. Clean \T\ dry. Dressing intact. Good blood return. Flushes easily. 20G LAC. 10:22 Blood Culture Adult (2) Sent. hb 10:22 CBC with Diff Sent. hb 10:22 CMP Sent. hb 10:22 Lactate w/ 2H reflex if indic. Sent. hb 10:22 Protime (+inr) Sent. hb 10:22 Ptt, Activated Sent. hb 10:25 Patient has correct armband on for positive identification. Bed in low position. Call hb light in reach. Provided Education on: tests, result times. Client placed on continuous cardiac and pulse oximetry monitoring. NIBP monitoring applied. school lunch monitor on. Pulse ox on. NIBP on. 11:12 Chest Single View XRAY In Process Unspecified. EDMS 11:26 David De La O MD is Hospitalizing Provider. kb 13:00 No provider procedures requiring assistance completed. Patient admitted, IV remains in hb place. Administered Medications: 12:02 Drug: Furosemide IVP 20 mg IVP once; give over 2 minutes Route: IVP; Site: left hb antecubital; 19:22 Follow up: Response: No adverse reaction bm8 Medication: 10:24 VIS not applicable for this client. hb Outcome: 11:26 Decision to Hospitalize by Provider. kb 13:00 Admitted to ER Hold. Please see [facility] for further documentation. hb 13:00 Condition: stable 13:00 Instructed on the need for admit, Demonstrated understanding of instructions, 19:22 Patient left the ED. bm8 Signatures: Dispatcher [employer] EDMS Swati Fonseca, DISTRIBUTION CENTER MANAGER-C DISTRIBUTION CENTER MANAGER-CkKyra Browne RN RN Di Bravo RN RN Scarlett Hall Brad, RN RN bm8 Corrections: (The following items were deleted from the chart) 09:48 09:48 PSHx: CAB (hernia ); ss ss 09:49 09:44 Chief complaint: Patient states: SOB x 3 days. PT reports she has not taken her ss Lasix in 2 days because she is moving and is unsure as to where they are right now ss
--- NOTE | 2025-01-29 11:27 | EDPHYS ---
Physician Documentation [facility] Name: Alyson Ibarra Age: 79 yrs Sex: Female : 1945 Arrival Date: 01/29/2025 Time: 09:30 Bed 2 Private MD: ED Physician Sheng Sykes HPI: 01/29 09:41 This 79 yrs old Female presents to ER via Unassigned with complaints of kb Shortness Of Breath. 09:41 Pt is an 79 year old female who presents for cough and shortness of breath that started kb 3 weeks ago and has been getting progressively worse. Reports shortness of breath on exertion, improved at rest. Reports subjective fever. States she takes lasix BID, but hasn't taken it in 2 days because she lost it during a move. . Historical: - Allergies: 09:48 Cipro; ss - PMHx: 09:48 CAD; CHF; COPD; Hyperlipidemia; Hypertension; Diabetes - IDDM; neuropathy; ss - PSHx: 09:48 Heart Stents; hernia; Coronary artery bypass graft; ss - Immunization history:: Client reports having NOT received the Covid vaccine. - Infectious Disease History:: Denies. - Social history:: Smoking status: Patient denies any tobacco usage or history of. ROS: 09:40 Constitutional: As per HPI kb Exam: 09:40 Constitutional: This is a well developed, well nourished patient who is awake, alert, kb and in no acute distress. Head/Face: Normocephalic, atraumatic. ENT: Moist Mucous membranes Skin: Warm, dry with normal turgor. Normal color. MS/ Extremity: Pulses equal, no cyanosis. Neurovascular intact. Full, normal range of motion. Neuro: Awake and alert, GCS 15, oriented to person, place, time, and situation. 09:40 Cardiovascular: Rate: tachycardic, Edema: 2+ to bilateral lower extremities, 09:40 Respiratory: mild respiratory distress is noted, Respirations: labored breathing, that is mild, Breath sounds: rhonchi, that are moderate, are heard diffusely, Vital Signs: 09:44 BP 122 / 97; Pulse 117; Resp 24; Temp 97.8(O); Pulse Ox 98% on R/A; Weight 61.69 kg; ss Height 5 ft. 5 in. ; Pain 0/10; 10:25 BP 103 / 70; Pulse 105; Resp 29; Pulse Ox 98% on R/A; hb 11:30 BP 107 / 74; Pulse 105; Resp 28; Pulse Ox 98% on R/A; hb 12:03 BP 119 / 59; Pulse 105; Resp 25; Pulse Ox 97% on R/A; hb 09:44 Body Mass Index 22.63 (61.69 kg, 165.1 cm) ss 09:44 Pain Scale: Adult ss MDM: 09:34 Medical Screening Exam initiated kb 11:25 Differential diagnosis: asthma, CHF exacerbation, pneumonia, pulmonary edema. Data kb reviewed: vital signs, nurses notes. Consideration of Admission/Observation Patient was admitted/placed on observation. Escalation of care including admission/observation considered. Management of patient was discussed with the following: Hospitalist: Hospitalist team. Historians other than the Patient: Family Member: grandson. Care significantly affected by the following chronic conditions: Diabetes, Congestive Heart Failure, Chronic Obstructive Pulmonary Disease. Counseling: I had a detailed discussion with the patient and/or guardian regarding the historical points, exam findings, and any diagnostic results supporting the discharge/admit diagnosis, lab results, radiology results, the need for further work-up and treatment in the hospital. 01/29 09:40 Order name: Blood Culture Adult (2) kb 01/29 09:40 Order name: CBC with Diff; Complete Time: 13:33 kb 01/29 09:40 Order name: CMP; Complete Time: 11:05 kb 01/29 09:40 Order name: Lactate w/ 2H reflex if indic.; Complete Time: 11:05 kb 01/29 09:40 Order name: Protime (+inr); Complete Time: 10:39 kb 01/29 09:40 Order name: Ptt, Activated; Complete Time: 10:39 kb 01/29 09:40 Order name: BNP; Complete Time: 11:05 kb 01/29 09:55 Order name: Glucose, Ancillary Testing; Complete Time: 10:08 EDMS 01/29 12:11 Order name: Basic Metabolic Panel [facility] 01/29 12:11 Order name: Basic Metabolic Panel [facility] 01/29 12:11 Order name: Basic Metabolic Panel [facility] 01/29 12:11 Order name: Basic Metabolic Panel [facility] 01/29 12:11 Order name: CBC with Automated Diff [facility] 01/29 12:12 Order name: CBC with Automated Diff [facility] 01/29 12:12 Order name: CBC with Automated Diff [facility] 01/29 12:12 Order name: CBC with Automated Diff [facility] 01/29 12:12 Order name: Lipid Profile [facility] 01/29 12:12 Order name: Lipid Profile [facility] 01/29 12:12 Order name: Lipid Profile [facility] 01/29 12:12 Order name: Lipid Profile [facility] 01/29 12:12 Order name: Magnesium [facility] 01/29 12:12 Order name: Magnesium [facility] 01/29 12:12 Order name: Magnesium [facility] 01/29 12:12 Order name: Magnesium [facility] 01/29 12:12 Order name: Troponin High Sensitivity [facility] 01/29 12:12 Order name: Troponin High Sensitivity [facility] 01/29 12:12 Order name: Troponin High Sensitivity [facility] 01/29 12:12 Order name: Troponin High Sensitivity [facility] 01/29 13:24 Order name: CBC Smear Scan; Complete Time: 13:33 [facility] 01/29 18:42 Order name: ABG Arterial Blood Gas [facility] 01/29 09:40 Order name: Chest Single View XRAY; Complete Time: 11:23 kb 01/29 12:19 Order name: CT CHEST,ABD,PELVIS W/O [facility] 01/29 13:20 Order name: CT; Complete Time: 13:21 [facility] 01/29 17:21 Order name: US; Complete Time: 17:22 [facility] 01/29 12:11 Order name: CONS Physician Consult [place] 01/29 12:11 Order name: CONS Physician Consult [facility] 01/29 09:40 Order name: Cardiac monitoring; Complete Time: 10:22 kb 01/29 09:40 Order name: EKG - Nurse/Tech; Complete Time: 10:22 kb 01/29 09:40 Order name: IV Saline Lock - Large Bore; Complete Time: 10:22 kb 01/29 09:40 Order name: Labs collected and sent; Complete Time: 10:22 kb 01/29 09:40 Order name: O2 Per Protocol; Complete Time: 10:22 kb 01/29 09:40 Order name: O2 Sat Monitoring; Complete Time: 10:22 kb 01/29 09:40 Order name: Vital Signs; Complete Time: 10:22 kb Administered Medications: 12:02 Drug: Furosemide IVP 20 mg IVP once; give over 2 minutes Route: IVP; Site: left hb antecubital; 19:22 Follow up: Response: No adverse reaction bm8 Disposition Summary: 01/29/25 11:26 Hospitalization Ordered Notes: Hospitalization Status: Observation kb Provider: David De La O Condition: Stable kb Problem: new kb Symptoms: are unchanged kb Bed/Room Type: Standard kb Location: Telemetry/MedSurg (observation)(01/29/25 18:16) eb Room Assignment: 221(01/29/25 18:16) eb Diagnosis - Unspecified combined systolic (congestive) and diastolic (congestive) heart failure kb Forms: - Medication Reconciliation Form kb - SBAR form kb - Leadership Thank You Letter kb Addendum: 01/31/2025 09:04 Co-signature as Attending Physician, Sheng Sykes MD I reviewed the patient's care r n provided by the Advanced Practice Provider and agree with the diagnosis and treatment plan. 02/14/2025 13:37 Addendum: Rate is 117 beats per minute. Rhythm is regular. QRS axis is normal. OK k b interval is normal at 200 msec. QRS interval is normal at 94 msec. QT interval is normal at 330 msec. Clinical impression: Sinus tach. Signatures: Dispatcher [employer] EDSwati Shah, COLLEGE PROFESSOR-C COLLEGE PROFESSOR-Ckb Sheng Sykes MD MD rn Blanchard, Shelby, RN RN ss Baxter, Heather, RN RN Migdalia Feliciano Brad RN bm8 Corrections: (The following items were deleted from the chart) 01/29 09:40 09:40 BLOOD CULTURE*+BA.LAB.BRZ ordered. EDMS EDMS 09:40 09:40 CBC+H.LAB.BRZ ordered. EDMS EDMS 09:40 09:40 COMPREHENSIVE METABOLIC PANEL+C.LAB.BRZ ordered. EDMS EDMS 09:40 09:40 LACTATE+C.LAB.BRZ ordered. EDMS EDMS 09:40 09:40 PROTIME (+INR)+COAG.LAB.BRZ ordered. EDMS EDMS 09:40 09:40 PTT, ACTIVATED+COAG.LAB.BRZ ordered. EDMS EDMS 09:40 09:40 PROBNP+C.LAB.BRZ ordered. EDMS EDMS 09:41 09:40 Chest Single View+RAD.RAD.BRZ ordered. EDMS EDMS 09:48 09:48 PSHx: CAB (hernia ); ss ss 15:34 11:26 Telemetry/MedSurg (observation) kb hb 15:34 11:26 kb hb 18:16 15:34 [facility] ER HOLD hb eb 18:16 15:34 ERHOLD- hb eb
--- NOTE | 2025-01-29 11:30 | P.HP ---
Certification for Inpatient Patient admitted to: Inpatient <Yahaira South - Last Filed: 01/29/25 13:36> Patient History Date of Service: 01/29/25 Reason for admission: Shortness of breath History of Present Illness: 79 yrs old female with a past medical history of CAD, CHF, COPD, hyperlipidemia, hypertension, insulin-dependent diabetes, neuropathy presents to ER via Unassigned with complaints Shortness Of Breath. She reports being short of breath x 3 weeks, she reports symptoms over the last 24 hours. She reports taking Lasix however is not taking in the last 2 days. Due to moving, Reports prior admissions with CHF. history of COPD, not on home O2. She reports being seen in the emergency room 2 days ago but was not admitted. She denies chest pain, abdominal pain, nausea vomiting diarrhea. ER evaluation chest x-ray Mild cardiomegaly, moderate left and small right pleural effusion with likely pulmonary edema, bibasilar pneumonia, CT of the chest/abdomen without contrast ordered. Laboratory evaluation BNP 43,106, CMP BUN 69 creatinine 2.35, GFR 20, blood glucose 215,, microcytic anemia 11.0, 32.9, platelets 88, left shift 80.9, plan to admit for acute on chronic heart failure with cardiology to consult, acute kidney injury with nephrology, - Past Medical/Surgical History Diabetic: Yes -: Hypertension -: Chronic systolic congestive heart failure -: IDDM -: neuropathy -: hyperlipidemia -: CAD -: SD -: COPD -: cardiac catheterization -: Coronary artery bypass grafting -: Bilateral knee surgery Psychosocial/ Personal History: Patient lives at home with family - Family History Mother -: Diabetes Father -: Diabetes Notes: neuropathy - Social History Alcohol use: No CD- Drugs: No Caffeine use: No <Yahaira South - Last Filed: 01/29/25 13:36> Date of Service: 01/29/25 <David De La O - Last Filed: 01/29/25 17:44> Allergies ciprofloxacin [From Cipro] Allergy (Intermediate, Verified 06/03/24 09:58) Itching Home Medications: Insulin Glargine Human [Lantus*] 12 units SQ BID 05/09/18 Aspirin Chewable [Aspirin Chewable*] 81 mg PO DAILY #30 tab.chew 09/03/22 Ipratropium Neb [Atrovent*] 0.5 mg NEB [id number] #60 amp 09/03/22 Atorvastatin Calcium [Lipitor] 40 mg PO BEDTIME 10/10/22 Albuterol Neb [Proventil 0.083% Neb Soln] 2.5 mg NEB [id number] PRN #60 amp 10/18/22 Cyanocobalamin (Vitamin B-12) [Vitamin B12] 5,000 mcg SL DAILY #30 tab 10/18/22 Tirzepatide [Mounjaro] 5 mg SQ EVERY 7TH DAY 05/31/24 Loperamide [Imodium*] 2 mg PO UD PRN 07/05/24 Furosemide 40 mg PO BIDAC #60 tab 07/07/24 Metoprolol Succinate 25 mg PO DAILY 07/24/24 Azithromycin [Zithromax] 500 mg PO DAILY #5 tab 07/26/24 Benzonatate [Tessalon Perle*] 100 mg PO TID PRN #30 cap 07/26/24 Cefdinir [Cefdinir*] 300 mg PO BID #14 cap 07/26/24 Codeine/APAP [Tylenol W/Codeine #3 tab] 1 tab PO Q6HP PRN #20 tab 07/26/24 Losartan Potassium [Cozaar*] 25 mg PO DAILY 07/26/24 Review of Systems 10-point ROS is otherwise unremarkable <Yahaira South - Last Filed: 01/29/25 13:36> Physical Examination - Physical Exam General: Alert, Oriented x3, Other (Mild distress) HEENT: Atraumatic, Normocephalic, PERRLA Neck: Supple, JVD not distended Respiratory: Crackles/rales, Other (Labored respiration) Cardiovascular: Normal pulses, Regular rate/rhythm, Normal S1 S2, Systolic murmur Capillary refill: <2 Seconds Gastrointestinal: Normal bowel sounds, Soft and benign Musculoskeletal: No swelling, No contractures Integumentary: No breakdown, No significant lesion Neurological: Normal speech, Normal strength at 5/5 x4 extr, Cranial nerves 3-12 intact - Studies Laboratory Data (last 24 hrs) 01/29/25 01/29/25 01/29/25 10:16 10:16 10:16 WBC 9.10 Hgb 11.0 L Hct 32.9 L Plt Count 88 L PT 16.0 H INR 1.43 APTT 31.3 Sodium 137 Potassium 4.4 BUN 69 H Creatinine 2.35 H Glucose 215 H Total Bilirubin 1.2 H AST 28 ALT 44 Alkaline Phosphatase 136 H <Yahaira South - Last Filed: 01/29/25 13:36> - Studies Laboratory Data (last 24 hrs) 01/29/25 01/29/25 01/29/25 10:16 10:16 10:16 WBC 9.10 Hgb 11.0 L Hct 32.9 L Plt Count 88 L PT 16.0 H INR 1.43 APTT 31.3 Sodium 137 Potassium 4.4 BUN 69 H Creatinine 2.35 H Glucose 215 H Total Bilirubin 1.2 H AST 28 ALT 44 Alkaline Phosphatase 136 H <David De La O - Last Filed: 01/29/25 17:44> Assessment and Plan - Problems (Diagnosis) (1) Acute on chronic diastolic heart failure Current Visit: No Status: Acute (2) Acute hypoxic respiratory failure Current Visit: Yes Status: Acute (3) Bilateral pleural effusion Current Visit: Yes Status: Acute (4) COPD (chronic obstructive pulmonary disease) Current Visit: Yes Status: Chronic Qualifiers: COPD type: COPD with acute exacerbation Qualified Code(s): J44.1 - Chronic obstructive pulmonary disease with (acute) exacerbation (5) Insulin-requiring or dependent type II diabetes mellitus Current Visit: Yes Status: Chronic (6) Hyperlipidemia Current Visit: Yes Status: Chronic Qualifiers: Hyperlipidemia type: unspecified Qualified Code(s): E78.5 - Hyperlipidemia, unspecified (7) Coronary artery disease Current Visit: No Status: Chronic Qualifiers: Coronary Disease-Associated Artery/Lesion type: [place] artery (8) Hypertension Current Visit: No Status: Chronic Qualifiers: Hypertension type: unspecified Qualified Code(s): I10 - Essential (primary) hypertension - Plan Admit to [facility] Acute on chronic heart failure unknown baseline Cardiology to consult Telemetry Daily weight Diuresis Trend BMP, troponin Statin, aspirin, metoprolol chest x-ray Mild cardiomegaly, moderate left and small right pleural effusion with likely pulmonary edema, bibasilar pneumonia, CT of the chest/abdomen without contrast ordered. Laboratory evaluation BNP 43,106, Acute kidney injury likely secondary to prerenal CHF Nephrology consulted CMP BUN 69 creatinine 2.35, GFR 20, blood glucose 215,, Microcytic anemia Thrombocytopenia microcytic anemia 11.0, 32.9, left shift 80.9, platelets 88, Transfuse less than 7 Trend H&H, trend platelet Acute hypoxic respiratory failure secondary to decompensated heart failure versus COPD/bibasilar pneumonia COPD Levaquin, ceftriaxone, Solu-Medrol O2 2 L Titrate sats between 90-94 DuoNebs Insulin-dependent diabetes mellitus SSI, resume home meds Blood glucose monitoring Full code DVT heparin subcu twice daily Diet cardiac Discharge Plan: Home - Advance Directives Does patient have a Living Will: No Does patient have a Durable POA for Healthcare: No - Code Status/Comfort Care Code Status: Full Code Critical Care: No Time Spent Managing Pts Care (In Minutes): 55 <Yahaira South - Last Filed: 01/29/25 13:36> Physician Review: Patient Assessed, Agree with Above Assessment and Plan <David De La O - Last Filed: 01/29/25 17:44>
[2025-01-29] MEDS ORDERED: FUROSEMIDE 20 MG/ 2ML VIAL ONE ×2 (11:58→17:35)
[2025-01-29] MEDS ORDERED: ONDANSETRON 4 MG/2 ML VIAL IV PRN (12:02)
[2025-01-29] MEDS: Levofloxacin 750mg IV 750 MG/150 ML BAG IV SCH (13:00)
[2025-01-29] MEDS: CEFTRIAXONE 1,000 MG in NA CHLORIDE 0.9% 50 ML IVPB SCH (13:00)
[2025-01-29] MEDS: METHYLPREDNISOLONE 125 MG INJ IV SCH (13:01)
[2025-01-29] MEDS ORDERED: GLUCAGON 1 MG/VIAL IM PRN (13:02)
[2025-01-29] MEDS ORDERED: LORAZEPAM 0.5 MG TABLET PO PRN (13:02)
[2025-01-29] MEDS ORDERED: D10W 125 ML IV PRN (13:02)
--- NOTE | 2025-01-29 13:19 | RAD REPORT ---
EXAM: Chest Abd Pelvis Wo Con CLINICAL INDICATION: Female, 79 years old chf TECHNIQUE: CT chest, abdomen and pelvis was performed, without IV contrast, as per department protoco l. Axial, sagittal and coronal reconstructions were obtained. One or more of the following dose reduction techniques were used: Automated exposure control, adjustment of the mA and/or kV according to the patient size, and/or iterative reconstruction. Unless otherwise specified, incidental findings do not require dedicated imaging follow-up. [id number]. COMPARISON: 01/29/2025 chest radiograph, chest CT 07/24/2024 FINDINGS: The lack of intravenous contrast limits the sensitivity of this exam for evaluation of solid visceral organs, vascular structures, and retroperitoneum. ---THORAX--- LOWER NECK AND CHEST WALL: Visualized thyroid gland and soft tissues are normal. LUNGS AND AIRWAYS: Atelectasis as a result of the left-sided pleural effusion.Widespread micronodular ity and bronchial wall thickening. Intralobular septal thickening is also present. PLEURA: Moderate left and small right pleural effusion. No pneumothorax. MEDIASTINUM AND LYMPH NODES: Enlarged mediastinal and hilar lymph nodes which are likely reactive. Mi ld distal esophageal thickening. THORACIC AORTA: No thoracic aortic aneurysm. Atherosclerotic changes are present. PULMONARY ARTERIES: Caliber is within normal limits. Unable to evaluate for pulmonary emboli due to e ither protocol or lack of contrast. HEART: Mild cardiomegaly. Severe coronary artery calcifications.No significant pericardial effusion. Mitral prosthesis. ---ABDOMEN/PELVIS--- UPPER GI: Nonspecific gastric wall thickening. LIVER: No significant focal abnormality. GALLBLADDER/BILE DUCTS: Cholecystectomy.? PANCREAS: Atrophy but no acute findings. SPLEEN: Unremarkable. ADRENALS: Adrenal thickening without discrete mass. KIDNEYS AND URETERS: Mild left-sided hydroureteronephrosis. No obstructing stone identified.No suspic ious renal mass.No renal calculi.No ureteral calculi. ABDOMINAL AORTA AND OTHER VESSELS: Severe atherosclerotic changes. No aortic aneurysm. PERITONEUM: Trace ascites. LYMPH NODES: Reactive size retroperitoneal lymph nodes. ABDOMINAL WALL: Body wall edema. Small fluid collection along the anterior aspect of the left abdomin al wall just overlying the rectus sheath measuring 5.1 x 0.6 cm which may be from prior hernia repair. SMALL BOWEL/COLON: Small bowel has normal course and caliber. No colonic wall thickening or pericolon ic inflammatory changes. URINARY BLADDER: Circumferential bladder wall thickening which could reflect cystitis. Correlate with urinalysis. REPRODUCTIVE ORGANS: No pathologic process. ---COMBINED--- MUSCULOSKELETAL: Remote appearing L3 compression fracture. No acute fracture. ADDITIONAL FINDINGS: None. IMPRESSION: Fluid overload including moderate left and small right pleural effusion, pulmonary edema, trace ascit es, and body wall edema. Widespread micronodularity in the lungs suspicious for an infectious or inflammatory process includin g secondary to atypical sources. Consider 6 month follow-up chest CT. Mild left-sided hydroureteronephrosis without evidence of obstructing stone or mass. This could be se condary to infection or possibly distal ureteral stricture.
[2025-01-29 13:23] LABS: Blood Morphology Comment NOT SEEN (NOT SEEN); Platelet Estimate DECR; White Blood Cell Scan OK (OK)
[2025-01-29] MEDS ORDERED: METHYLPREDNISOLONE 125 MG INJ ONE ×2 (13:42→17:35)
[2025-01-29] MEDS ORDERED: CEFTRIAXONE 1000 MG/VIAL ONE (13:42)
[2025-01-29] MEDS ORDERED: Levofloxacin 750mg IV 750 MG/150 ML BAG IV ONE (13:42)
[2025-01-29] MEDS: INSULIN REGULAR (HUMAN) 100 UNIT/ML SQ SCH (16:30)
[2025-01-29] MEDS ORDERED: CEFTRIAXONE 1,000 MG in NA CHLORIDE 0.9% 50 ML IVPB SCH (17:00)
[2025-01-29] MEDS: FUROSEMIDE 40 MG/4 ML VIAL IV SCH (17:00)
--- NOTE | 2025-01-29 17:21 | RAD REPORT ---
EXAMINATION: US RETROPERITONEUM CLINICAL INDICATION: JOSIAS, TECHNIQUE: Real-time ultrasonography of the abdomen was performed. COMPARISON: Same day CT FINDINGS: RIGHT KIDNEY: Right renal length measurement: 10.3 cm. Normal in echogenicity and size. No calculus, solid mass or hydronephrosis. LEFT KIDNEY: Left renal length measurement: 10.1 cm. Normal in echogenicity and size. No calculus, so lid mass.. Mild left-sided hydronephrosis is present. ADDITIONAL FINDINGS: N/A IMPRESSION: Mild left-sided hydronephrosis. No right-sided hydronephrosis.
[2025-01-29 18:36] LABS: Arterial Blood Carboxyhemoglob 1.5 % (0-1.5); Blood Gas Oxyhemoglobin 79.3 % (94-97)
[2025-01-29] MEDS: HEPARIN 5000 UNIT/ML 1 ML VIAL SQ SCH (21:00)
[2025-01-29] MEDS: ATORVASTATIN 40 MG TAB PO SCH (21:54)
[2025-01-29] MEDS: BENZONATATE 100 MG CAP PO SCH (21:55)
[2025-01-30] MEDS: METOPROLOL TAR 25 MG TAB PO SCH (05:33)
--- NOTE | 2025-01-30 09:23 | P.PN ---
Subjective Date of Service: 01/30/25 Chief Complaint: Shortness of breath 95% room 2 L, NSTEMI, no complaint of chest pain, <BrannonYahaira - Last Filed: 01/30/25 14:45> Date of Service: 01/30/25 <David De La O - Last Filed: 01/30/25 17:54> Review of Systems 10-point ROS is otherwise unremarkable <Yahaira South - Last Filed: 01/30/25 14:45> Physical Examination - Vital Signs Temperature: 97.7 F Blood Pressure: 95/51 Pulse: 74 Respirations: 16 Pulse Ox (%): 95 - Physical Exam General: Alert, Oriented x3, Other (Labored respiration) HEENT: Atraumatic, Normocephalic Neck: Supple, 2+ carotid pulse no bruit, JVD not distended Respiratory: Normal air movement, Other (Crackles,) Cardiovascular: Regular rate/rhythm, Other (+ pulses, no lower ext edema) Capillary refill: <2 Seconds Gastrointestinal: Normal bowel sounds, Soft and benign Musculoskeletal: No swelling, No tenderness Integumentary: No rashes, No breakdown Neurological: Normal speech, Normal strength at 5/5 x4 extr, Normal tone - Studies Laboratory Data (last 24 hrs) 01/29/25 01/29/25 01/29/25 10:16 10:16 10:16 WBC 9.10 Hgb 11.0 L Hct 32.9 L Plt Count 88 L PT 16.0 H INR 1.43 APTT 31.3 Sodium 137 Potassium 4.4 BUN 69 H Creatinine 2.35 H Glucose 215 H Total Bilirubin 1.2 H AST 28 ALT 44 Alkaline Phosphatase 136 H <BrannonYahaira - Last Filed: 01/30/25 14:45> Assessment And Plan - Current Problems (Diagnosis) (1) NSTEMI (non-ST elevated myocardial infarction) Current Visit: Yes Status: Acute (2) Acute on chronic diastolic heart failure Current Visit: No Status: Acute (3) Acute hypoxic respiratory failure Current Visit: Yes Status: Acute (4) Bilateral pleural effusion Current Visit: Yes Status: Acute (5) COPD (chronic obstructive pulmonary disease) Current Visit: Yes Status: Chronic Qualifiers: COPD type: COPD with acute exacerbation Qualified Code(s): J44.1 - Chronic obstructive pulmonary disease with (acute) exacerbation (6) Insulin-requiring or dependent type II diabetes mellitus Current Visit: Yes Status: Chronic (7) Hyperlipidemia Current Visit: Yes Status: Chronic Qualifiers: Hyperlipidemia type: unspecified Qualified Code(s): E78.5 - Hyperlipidemia, unspecified (8) Coronary artery disease Current Visit: No Status: Chronic Qualifiers: Coronary Disease-Associated Artery/Lesion type: [place] artery (9) Hypertension Current Visit: No Status: Chronic Qualifiers: Hypertension type: unspecified Qualified Code(s): I10 - Essential (primary) hypertension - Plan Admit to [facility] Acute on chronic heart failure unknown baseline NSTEMI Cardiology to consult No complaint of chest pain Telemetry Daily weight Diuresis Trend BMP, troponin Statin, aspirin, metoprolol chest x-ray Mild cardiomegaly, moderate left and small right pleural effusion with likely pulmonary edema, bibasilar pneumonia, CT of the chest/abdomen without contrast ordered. Laboratory evaluation BNP 43,106, Acute kidney injury likely secondary to prerenal CHF Nephrology consulted CMP BUN 69 creatinine 2.35, GFR 20, Microcytic anemia Thrombocytopenia microcytic anemia 11.0, 32.9, left shift 80.9, platelets 88, Transfuse less than 7 Trend H&H, trend platelet Acute hypoxic respiratory failure secondary to pulmonary edema/underlying COPD COPD Pulmonary consult Levaquin, ceftriaxone, Solu-Medrol O2 2 L Titrate sats between 90-94 [place] Insulin-dependent diabetes mellitus SSI, resume home meds Blood glucose monitoring blood glucose 215 Long-acting insulin added Full code DVT heparin subcu twice daily Diet cardiac Physician Review: Patient Assessed, Agree with Above Assessment and Plan <Yahaira South - Last Filed: 01/30/25 14:45> Physician Review: Patient Assessed, Agree with Above Assessment and Plan <David De La O - Last Filed: 01/30/25 17:54>
[2025-01-30] MEDS: GUAIFENESIN 600 MG SA TAB PO SCH (09:34)
--- NOTE | 2025-01-30 11:12 | CON ---
Date of Consultation: 01/30/2025 Reason For Consultation: Elevated BUN and creatinine, fluid management. History Of Present Illness: This is a pleasant 79-year-old female with significant past medical hist ory of diabetes complicated with neuropathy, no retinopathy, nephropathy, hypertension, hyperlipidemi a, CAD status post CABG, status post PTCA complicated with congestive heart failure. Echocardiogram as of August 2022, ejection fraction of 40% with global hypokinesia, chronic kidney disease with th e baseline creatinine as of July 2024 of 1.5 and GFR of 34, the patient was in her regular state o f health. The patient came to the hospital complaining of increased shortness of breath for the last 3 weeks and increase in swelling. The patient denies change in her medication. According to her, s he has been on her Lasix for the last few years without any changing in her dosage. The patient pauly ed taking any extra medication or any dining outside or extra salt. There is still the same amount o f fluid restriction. Upon arrival to the hospital, the patient found to have elevation in creatinine 2.3 with GFR of 20, overvolume. For that reason, the patient was admitted, and we have been consult ed. Reviewing the record for the patient, the patient was on Lasix 40 b.i.d. and losartan. No nonst eroidal. No recent exposure for contrast. Past Medical History: Includes: 1. Diabetes complicated with neuropathy and nephropathy. No retinopathy. 2. Chronic kidney disease, baseline creatinine as of July 2024 of 1.5. 3. Hypertension. 4. CAD status post CABG and PTCA complicated with congestive heart failure, ejection fraction of 40%. 5. Hyperlipidemia. Past Surgical History: Includes CABG and PTCA, cardiac cath, bilateral knee surgery. Family History: Positive for diabetes and hypertension. Social History: Denied smoking. Denied drinking. Denied drug abuse. Allergies: TO CIPRO. Home Medications: Include insulin, aspirin, breathing treatment, atorvastatin, loperamide, Lasix, lo sartan, , cefdinir. Review of Systems: Head and Neck: No red eye. No ear pain. GI: No nausea or vomiting. : No polyuria. No dysuria. No hematuria. 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 Respiratory: Has shortness of breath. Cardiovascular: Has orthopnea. Endocrine: No polydipsia. Skin: No rash. Neuro: Has neuropathy. Musculoskeletal: No joint pain. Physical Examination: Vital Signs: When I saw the patient, blood pressure 95/51, pulse of 74, afebrile. The patient had g ood urine output. Chest: Crackles bilateral. Heart: S1, S2. Systolic murmur. Abdomen: Soft, nontender. Extremities: Trace edema. Neurologic: Alert. No focality. Laboratory Data: For the patient, chest x-ray; cardiomegaly, left-sided pleural effusion. Renal ult rasound 10.3/10.1, had mild hydronephrosis on the left, there was no right hydronephrosis. Sodium 13 7, potassium 4.4, bicarb 18, BUN 69, creatinine 2.3, GFR of 20, calcium 9.3. BNP 43,000. WBC 9.1, h emoglobin 11. Urinalysis not done yet. Current Medications: The patient on include albuterol, ceftriaxone, Levaquin, atorvastatin, metoprol ol, Lasix 20 b.i.d. Assessment And Plan: 1. Acute kidney injury secondary to cardiorenal, still on the overvolume side, marginal low blood pre ssure. I am going to go ahead and discontinue beta-van. We will increase the Lasix to 40 mg, an d we will follow up the patient. Obstructive uropathy has been ruled out. I am going to send for fu rther workup. 2. Hypertension. Currently, blood pressure on the lower side with the presence of acute kidney injur y. Discontinue losartan. Discontinue beta-van and we will utilize blood pressure for more diure sis. 3. Congestive heart failure with exacerbation. Follow up with Cardiology. Optimize diuresis as abov e. 4. Anasarca secondary to cardiorenal as above. We will send for TSH to quantify protein, creatinine. 5. Hyponatremia secondary to dilutional. We will optimize diuresis. 6. Secondary hyperparathyroidism. Repeat PTH. Thank you, Dr. De La O, for allowing us to participate in the care of your patient. Time spent examining the patient [id number]; reviewing data, lab, and radiology; placing order; dis cussing the case with the patient; discussing the case with the support team member including hospitalist and nursing staff more than 75 minutes. MELODY/SUNNY Voice ID: [id number] Report ID: [id number]
[2025-01-30 12:34] LABS: Absolute Lymphocytes (CBC) 0.1 K/uL (0.7-4.9); Absolute Monocytes 0.2 K/uL (0.1-1.3); Absolute Neutrophil 5.9 K/uL (1.8-8.0); Basophils % 0.1 % (0-1.3); Hematocrit 28.6 % (36.0-45.0); Hemoglobin 9.5 g/dL (12.0-15.0); Lymphocytes % 2.3 % (15.3-44.8); MCH 30.4 pg (27.0-35.0); MCHC 33.3 g/dL (32.0-36.0); MCV 91.2 fL (80-100); MPV 9.8 fL (7.6-11.3); Monocytes % 2.8 % (3.3-12.3); Neutrophils % 94.8 % (41.7-73.7); Nucleated Red Blood Cells % 0.1 % (0-0); Platelets 83 thou/uL (152-406); RBC Red Blood Cell Count 3.13 M/uL (3.86-4.86)
[2025-01-30 13:17] LABS: Anion Gap 13.2 mEq/L (5.0-15.0); Magnesium 2.1 mg/dL (1.6-2.4); Potassium 4.2 mEq/L (3.5-5.1)
[2025-01-30 13:18] LABS: Blood Morphology Comment NOT SEEN (NOT SEEN); Platelet Estimate DECR; White Blood Cell Scan OK (OK)
[2025-01-30 13:20] LABS: Troponin High Sensitivity 143.7 pg/mL (<58.9)
[2025-01-30] MEDS: INSULIN GLARGINE 100 UNIT/ML SQ SCH (17:33)
[2025-01-30] MEDS: FUROSEMIDE 40 MG/4 ML VIAL IV SCH (17:35)
[2025-01-30] MEDS: Mupirocin NASAL 2 APPL/1 GM TUBE NAS SCH (21:00)
[2025-01-30] MEDS: HYDROCODONE/APAP 7.5/325 MG TAB PO PRN (21:58)
[2025-01-31 00:27] LABS: Urine Protein/Creatinine Ratio 0.21 ratio (<0.15)
[2025-01-31 05:08] LABS: Absolute Lymphocytes (CBC) 0.1 K/uL (0.7-4.9); Absolute Monocytes 0.2 K/uL (0.1-1.3); Absolute Neutrophil 5.6 K/uL (1.8-8.0); Basophils % 0.1 % (0-1.3); Hematocrit 27.1 % (36.0-45.0); Hemoglobin 9.1 g/dL (12.0-15.0); Lymphocytes % 1.8 % (15.3-44.8); MCH 30.4 pg (27.0-35.0); MCHC 33.7 g/dL (32.0-36.0); MCV 90.3 fL (80-100); MPV 9.4 fL (7.6-11.3); Monocytes % 2.7 % (3.3-12.3); Nucleated Red Blood Cells % 0.2 % (0-0); Platelets 84 thou/uL (152-406); Red Cell Distribution Width 16.2 % (12.1-15.2)
[2025-01-31 05:11] LABS: Neutrophils % 95.4 % (41.7-73.7)
[2025-01-31 05:38] LABS: Albumin 2.6 g/dL (3.4-5.0); Anion Gap 10.3 mEq/L (5.0-15.0); Phosphorus 4.3 mg/dL (2.5-4.9); Potassium 4.3 mEq/L (3.5-5.1); Thyroid Stimulating Hormone 0.655 uIU/mL (0.358-3.740)
[2025-01-31 05:41] LABS: Troponin High Sensitivity 110.8 pg/mL (<58.9)
--- NOTE | 2025-01-31 08:05 | P.PN ---
Date of Service: 01/31/25 Subjective Chief Complaint: Shortness of breath 95% room 2 L, dyspneic, NSTEMI, no complaint of chest pain, Review of Systems 10-point ROS is otherwise unremarkable Physical Examination - Vital Signs Reviewed - Physical Exam General: Alert, Oriented x3, dyspneic, afebrile HEENT: Atraumatic, Normocephalic Neck: Supple, 2+ carotid pulse no bruit, JVD not distended Respiratory: Normal air movement, Other (Crackles,) Cardiovascular: Regular rate/rhythm, Other (+ pulses, no lower ext edema) Capillary refill: <2 Seconds Gastrointestinal: Normal bowel sounds, Soft and benign Musculoskeletal: No swelling, No tenderness Integumentary: No rashes, No breakdown Neurological: Normal speech, Normal strength at 5/5 x4 extr, Normal tone Assessment And Plan - Current Problems (Diagnosis) (1) NSTEMI (non-ST elevated myocardial infarction) Current Visit: Yes Status: Acute (2) Acute on chronic diastolic heart failure Current Visit: No Status: Acute (3) Acute hypoxic respiratory failure Current Visit: Yes Status: Acute (4) Bilateral pleural effusion Current Visit: Yes Status: Acute (5) COPD (chronic obstructive pulmonary disease) Current Visit: Yes Status: Chronic Qualifiers: COPD type: COPD with acute exacerbation Qualified Code(s): J44.1 - Chronic obstructive pulmonary disease with (acute) exacerbation (6) Insulin-requiring or dependent type II diabetes mellitus Current Visit: Yes Status: Chronic (7) Hyperlipidemia Current Visit: Yes Status: Chronic Qualifiers: Hyperlipidemia type: unspecified Qualified Code(s): E78.5 - Hyperlipidemia, unspecified (8) Coronary artery disease Current Visit: No Status: Chronic Qualifiers: Coronary Disease-Associated Artery/Lesion type: [place] artery (9) Hypertension Current Visit: No Status: Chronic Qualifiers: Hypertension type: unspecified Qualified Code(s): I10 - Essential (primary) hypertension - Plan Admit to [facility] Acute on chronic heart failure unknown baseline NSTEMI Cardiology to consult No complaint of chest pain Telemetry Daily weight Diuresis Trend BMP, troponin Statin, aspirin, metoprolol chest x-ray Mild cardiomegaly, moderate left and small right pleural effusion with likely pulmonary edema, bibasilar pneumonia, CT of the chest/abdomen without IMPRESSION: Fluid overload including moderate left and small right pleural effusion, pulmonary edema, trace ascites, and body wall edema.Widespread micronodularity in the lungs suspicious for an infectious or inflammatory process including secondary to atypical sources. Consider 6 month follow-up chest CT. Mild left-sided hydroureteronephrosis without evidence of obstructing stone or mass. This could be secondary to infection or possibly distal ureteral stricture. BNP 43,106, repeat 45, 911, Troponin 110 Acute kidney injury likely secondary to prerenal CHF Nephrology consulted Renal ultrasound Mild left-sided hydronephrosis. No right-sided hydronephrosis. CMP BUN 69 Cr 2.35, GFR 20, worsening renal function, BUN 87 Cr 2.52, GFR 19 Microcytic anemia Thrombocytopenia microcytic anemia 11.0/32.9-> 9.528.6-> 9.127.1, platelets 88, 83, 84 Transfuse less than 7 Trend H&H, trend platelet Acute hypoxic respiratory failure secondary to pulmonary edema/underlying COPD COPD Pulmonary consult Levaquin, ceftriaxone, Solu-Medrol O2 2 L Titrate sats between 90-94 [place] Will eval for room air sats for home O2 prior to discharge Insulin-dependent diabetes mellitus SSI, resume home meds Blood glucose monitoring blood glucose 215 Long-acting insulin added Full code DVT heparin subcu twice daily Diet cardiac
[2025-01-31] MEDS: DOXYCYCLINE 100 MG CAP PO SCH (09:33)
--- NOTE | 2025-01-31 11:17 | P.CNS ---
Date of Consult: 01/31/25 Chief Complaint: Shortness of breath History of Present Illness: Patient with PMH of CAD s/p CABG, NIÑO-LAD and SVG-RPDA, diastolic heart failure presented with worsening SOB and edema, denies chest pain, no palpitations, no syncope. Allergies ciprofloxacin [From Cipro] Allergy (Intermediate, Verified 01/29/25 20:21) Itching Home medications list reviewed: Yes - Past Medical/Surgical History Diabetic: Yes -: Hypertension -: Chronic systolic congestive heart failure -: IDDM -: neuropathy -: hyperlipidemia -: CAD -: [place] -: COPD -: cardiac catheterization -: Coronary artery bypass grafting -: Bilateral knee surgery Psychosocial/ Personal History: Patient lives at home with family - Family History Mother Medical History: Diabetes Father Medical History: Diabetes Notes: neuropathy - Social History Smoking Status: Unknown if ever smoked Alcohol use: No CD- Drugs: No Caffeine use: No Review of Systems 10-point ROS is otherwise unremarkable Physical Examination Temp Pulse Resp BP Pulse Ox 97.5 F 77 20 132/61 98 01/31/25 08:00 01/31/25 08:00 01/31/25 08:00 01/31/25 08:00 01/31/25 08:00 General: Alert, In no apparent distress HEENT: Atraumatic, PERRLA, Mucous membr. moist/pink, EOMI, Sclerae nonicteric Neck: Supple, 2+ carotid pulse no bruit, No LAD, Without JVD or thyroid abnormality Respiratory: Clear to auscultation bilaterally, Normal air movement Cardiovascular: Regular rate/rhythm, Normal S1 S2 Gastrointestinal: Normal bowel sounds, No tenderness Musculoskeletal: No tenderness Integumentary: No rashes Neurological: Normal gait, Normal speech, Normal tone, Normal affect Lymphatics: No axilla or inguinal lymphadenopathy - Problems (1) Acute on chronic diastolic (congestive) heart failure Current Visit: Yes Status: Acute Plan: Continue Lasix 40 mg IV BID D/C any IV fluids add Coreg 3.125 mg po BID Monitor input and output accurately monitor and correct electrolytes. (2) NSTEMI (non-ST elevated myocardial infarction) Current Visit: Yes Status: Acute Plan: troponin mild elevated, most likely type 2 [place] from CHF/JOSIAS on CKD get echo ASA 81 mg daily Lipitor 40 mg daily add coreg 3.125 mg po BID (3) Hypertension Current Visit: No Status: Chronic Plan: add coreg continue to monitor. Qualifiers: Hypertension type: unspecified Qualified Code(s): I10 - Essential (primary) hypertension
--- NOTE | 2025-01-31 12:10 | P.CNS ---
Date of Consult: 01/31/25 Reason for Consult: Left-sided pleural effusion Chief Complaint: Shortness of breath History of Present Illness: Patient is 79 years of age active pulm medical problems at baseline very poor historian disorientated admitted with shortness of breath was not taking her Lasix history of heart failure COPD Chest x-ray showed a left-sided pleural effusion patient has chronic renal failure denies any fever chills or cough Allergies ciprofloxacin [From Cipro] Allergy (Intermediate, Verified 01/29/25 20:21) Itching - Past Medical/Surgical History Diabetic: Yes -: Hypertension -: Chronic systolic congestive heart failure -: IDDM -: neuropathy -: hyperlipidemia -: CAD -: [place] -: COPD -: cardiac catheterization -: Coronary artery bypass grafting -: Bilateral knee surgery Psychosocial/ Personal History: Patient lives at home with family - Family History Mother Medical History: Diabetes Father Medical History: Diabetes Notes: neuropathy - Social History Smoking Status: Unknown if ever smoked Alcohol use: No CD- Drugs: No Caffeine use: No Review of Systems is unable to be obtained Physical Examination Temp Pulse Resp BP Pulse Ox 97.5 F 77 20 132/61 98 01/31/25 08:00 01/31/25 08:00 01/31/25 08:00 01/31/25 08:00 01/31/25 08:00 General: Alert, Oriented x3 Neck: Supple Respiratory: Diminished (Diminished on the left side) Cardiovascular: No edema, Regular rate/rhythm, Normal S1 S2 Gastrointestinal: Normal bowel sounds, Soft and benign - Problems (1) Pleural effusion Current Visit: Yes Status: Acute Plan: Patient is 79 years of age evaluated performed by me for left-sided pleural effusion patient is confused disoriented unable to provide a cohesive account as to why she is here she has a history of coronary artery disease with a bypass quit smoking a while ago patient has a mild normocytic anemia chemistries otherwise unremarkable cardiac catheter 2022 ordered a bilateral decubitus of the chest ultrasound of the left chest possible thoracentesis oxygenation satisfactory patient has a mild hydronephrosis on the left side no fever echo pending
--- NOTE | 2025-01-31 12:13 | EKG ---
Test Date: 2025-01-29 Test Time: 09:51:57 Scientific Aide: HB MEASUREMENT RESULTS: Intervals: Rate: 117 PA: 200 QRSD: 94 QT: 330 QTc: 460 [place]: P: 25 PA: 200 QRS: -70 T: 136 INTERPRETIVE STATEMENTS: Sinus tachycardia Left anterior fascicular block T wave abnormality, consider lateral ischemia Abnormal ECG Compared to ECG 07/24/2024 15:32:08 Left anterior fascicular block now present Sinus bradycardia no longer present First degree AV block no longer present Myocardial infarct finding no longer present T-wave abnormality still present Possible ischemia still present Electronically Signed On 01-31-25 12:08:42 CDT by Jignesh Valenzuela
[2025-01-31] MEDS ORDERED: Levofloxacin 750mg IV 750 MG/150 ML BAG IV SCH (13:00)
[2025-01-31] MEDS ORDERED: SODIUM CHLORIDE 0.9% 10ML INJ IV PRN (14:37)
--- NOTE | 2025-01-31 14:39 | P.PN ---
This is an attestation to DAYCARE ASSISTANT note. Subjective: Not able to obtain good history. Looks comfortable in the bed. Objective: General appearance: Alert and comfortable CVS: Normal S1 and S2 Lungs: Clear to auscultation bilaterally Abdomen: Soft, bowel sounds present, no tenderness Extremities: No lower extremity edema 79-year-old patient with elevated troponin, acute heart failure, cardiology is on board, echo pending. Acute on chronic renal failure stage IIIa, CT chest abdomen pelvis showed pneumonia, pleural effusions, mediastinal hilar adenopathy, esophageal and gastric wall thickening, left hydronephrosis, bladder thickening, continue antibiotics, add PPI, will need repeat CT chest in 6 months as per radiology recommendations, f/u with GI and urology, willl repeat renal US today. Chronic anemia thrombocytopenia, monitor closely.
[2025-01-31] MEDS: PANTOPRAZOLE 40 MG INJ IVP SCH (16:37)
--- NOTE | 2025-01-31 20:51 | RAD REPORT ---
EXAMINATION: US Chest CLINICAL INDICATION: [facility] MAIN Left chest left-sided effusion possible thoracente COMPARISON: None. TECHNIQUE: Sonographic grayscale and color flow imaging of the chest. FINDINGS: Left lung: Moderate pleural effusion. This region was marked for eventual thoracentesis. IMPRESSION: 1. Left moderate pleural effusion.
--- NOTE | 2025-01-31 21:55 | RAD REPORT ---
EXAMINATION: Chest Lateral Decubitus CLINICAL INDICATION: Female, 79 years old. LEft effusion TECHNIQUE: 2 view decubitus radiographs of the chest were performed. COMPARISON: No prior exam. FINDINGS: Decubitus views of the chest demonstrate layering of the known left pleural effusion. No evidence of loculation. Sequelae of median sternotomy. Midline catheter tip terminates just proximal to the axilla. IMPRESSION: Layering left pleural effusion.
--- NOTE | 2025-01-31 22:09 | RAD REPORT ---
EXAMINATION: US RETROPERITONEUM CLINICAL INDICATION: [facility] MAIN f/u left hydronephrosis TECHNIQUE: Real-time ultrasonography of the abdomen was performed. COMPARISON: 01/29/2025 FINDINGS: RIGHT KIDNEY: Right renal length measurement: 9.5 cm. Normal in echogenicity and size. No calculus, s olid mass or hydronephrosis. LEFT KIDNEY: Left renal length measurement: 10.6 cm. Normal in echogenicity and size. No calculus, or solid mass. Stable mild left hydronephrosis URINARY BLADDER: Normal. ADDITIONAL FINDINGS: None. IMPRESSION: Stable mild left hydronephrosis. No significant interval change.
--- NOTE | 2025-02-01 02:57 | PN ---
Date of Progress Note: 01/31/2025 Chief Complaint: Elevated BUN and creatinine. Subjective: The patient is an 79-year-old woman with past medical history of diabetes mellitus, comp licated with neuropathy, retinopathy, nephropathy; hypertension; hyperlipidemia; coronary artery dise ase, status post CABG, status post PTCA, complicated with congestive heart failure. Echocardiogram p reviously done back in 2021 showed reduced ejection fraction of 40% with global hypokinesia. The pat ient has also chronic kidney disease stage 3. GFR 34 and creatinine 1.5. The patient came to the [facility] complaining of increased shortness of breath for at least 3 days prior to this admission. The patient was treated with Lasix. The patient denied taking nonsteroidal anti-inflammatory medication . On arrival to the hospital, blood work showed creatinine of 2.3. GFR 20. The patient is fluid ov erloaded and started on Lasix. Home Medications: Included Lasix 40 mg twice a day and losartan. Review of Systems: Denies chest pain, palpitation. Physical Examination: Lungs: Clear to auscultation bilaterally. Heart: S1, S2. Abdomen: Soft, benign. Extremities: Slight edema. Impression And Plan: 1. Acute kidney injury secondary to cardiorenal syndrome. The patient has fluid overload. Continue diuretic. The patient is on beta-van for congestive heart failure, although beta-van was tap ered off because of hypotensive episodes. Continue treatment and adjust medication with Lasix for vo lume control. 2. Hypertension. Monitor blood pressure. Losartan was stopped due to acute kidney injury and risk o f hyperkalemia. 3. Congestive heart failure with exacerbation, currently on diuretic. Plan is to resume losartan whe n the patient does not have fluid overload. 4. Anasarca secondary to cardiorenal syndrome. Continue low-sodium diet and diuretic. The patient i s to have workup to rule out hypothyroidism. 5. Hyperparathyroidism. Monitor PTH. EB/MODL Voice ID: [id number] Report ID: [id number]
[2025-02-01 04:40] LABS: Absolute Lymphocytes (CBC) 0.2 K/uL (0.7-4.9); Absolute Monocytes 0.5 K/uL (0.1-1.3); Basophils % 0.1 % (0-1.3); Hematocrit 30.3 % (36.0-45.0); Hemoglobin 10.2 g/dL (12.0-15.0); Lymphocytes % 2.3 % (15.3-44.8); MCH 30.7 pg (27.0-35.0); MCHC 33.8 g/dL (32.0-36.0); MCV 90.9 fL (80-100); MPV 9.1 fL (7.6-11.3); Monocytes % 5.9 % (3.3-12.3); Platelets 87 thou/uL (152-406); RBC Red Blood Cell Count 3.33 M/uL (3.86-4.86); Red Cell Distribution Width 16.2 % (12.1-15.2)
[2025-02-01 04:50] LABS: Neutrophils % 91.7 % (41.7-73.7)
[2025-02-01 05:20] LABS: Albumin 2.7 g/dL (3.4-5.0); Anion Gap 11.5 mEq/L (5.0-15.0); Phosphorus 4.9 mg/dL (2.5-4.9); Potassium 4.5 mEq/L (3.5-5.1)
[2025-02-01 05:24] LABS: Troponin High Sensitivity 98.1 pg/mL (<58.9)
--- NOTE | 2025-02-01 07:42 | P.PN ---
Date of Service: 02/01/25 Subjective Chief Complaint: Shortness of breath 95% room 2 L, dyspneic, NSTEMI, no complaint of chest pain, Plan for thoracentesis by interventional radiology for left-sided pleural effusion Review of Systems 10-point ROS is otherwise unremarkable Physical Examination - Vital Signs Reviewed - Physical Exam General: Alert, Oriented x3, afebrile HEENT: Supple, PERRLA Neck: Supple, Respiratory: Normal air movement, dyspneic, (Crackles,) Cardiovascular: Regular rate/rhythm, Other (+ pulses, no lower ext edema) Capillary refill: <2 Seconds Gastrointestinal: Normal bowel sounds, nontender Musculoskeletal: No swelling, No tenderness Integumentary: No rashes, No breakdown Neurological: Normal speech, answers questions appropriately Assessment And Plan - Current Problems (Diagnosis) (1) NSTEMI (non-ST elevated myocardial infarction) Current Visit: Yes Status: Acute (2) Acute on chronic diastolic heart failure Current Visit: No Status: Acute (3) Acute hypoxic respiratory failure Current Visit: Yes Status: Acute (4) Bilateral pleural effusion Current Visit: Yes Status: Acute (5) COPD (chronic obstructive pulmonary disease) Current Visit: Yes Status: Chronic Qualifiers: COPD type: COPD with acute exacerbation Qualified Code(s): J44.1 - Chronic obstructive pulmonary disease with (acute) exacerbation (6) Insulin-requiring or dependent type II diabetes mellitus Current Visit: Yes Status: Chronic (7) Hyperlipidemia Current Visit: Yes Status: Chronic Qualifiers: Hyperlipidemia type: unspecified Qualified Code(s): E78.5 - Hyperlipidemia, unspecified (8) Coronary artery disease Current Visit: No Status: Chronic Qualifiers: Coronary Disease-Associated Artery/Lesion type: [place] artery (9) Hypertension Current Visit: No Status: Chronic Qualifiers: Hypertension type: unspecified Qualified Code(s): I10 - Essential (primary) hypertension - Plan Admit to [facility] Acute on chronic heart failure with reduced ejection fraction 20 to 30% mitral regurgitation tricuspid regurgitation severe pulmonary hypertension NSTEMI Cardiology to consult No complaint of chest pain Telemetry Daily weight Diuresis Trend BMP, troponin Statin, aspirin, metoprolol chest x-ray Mild cardiomegaly, moderate left and small right pleural effusion with likely pulmonary edema, bibasilar pneumonia, CT of the chest/abdomen without IMPRESSION: Fluid overload including moderate left and small right pleural effusion, pulmonary edema, trace ascites, and body wall edema.Widespread micronodularity in the lungs suspicious for an infectious or inflammatory process including secondary to atypical sources. Consider 6 month follow-up chest CT. Mild left-sided hydroureteronephrosis without evidence of obstructing stone or mass. This could be secondary to infection or possibly distal ureteral stricture. BNP 43,106, repeat 45, 911, 40,000 150 Troponin 110, 98 01/31 Echo [place] severely reduced EF 25 to 30%, moderate mitral regurgitation, mild aortic GERD regurgitation, moderate tricuspid cuspid regurgitation severe pulmonary hypertension Acute kidney injury likely secondary to prerenal CHF left-sided hydronephrosis Nephrology consulted Renal ultrasound Mild left-sided hydronephrosis. No right-sided hydronephrosis. BUN 69, 87, 88 Cr 2.35,, 2.52, 2.59 GFR 20, 19, 18 Will need to follow-up with urology after discharge Microcytic anemia Thrombocytopenia H&H 11.0/32.9-> 9.528.6-> 9.127.1,, 10.2/30.3 platelets 88, 83, 84, 87 Transfuse less than 7 Trend H&H, trend platelet Acute hypoxic respiratory failure secondary to pulmonary edema/underlying COPD severe pulmonary hypertension COPD Pulmonary consult Levaquin, ceftriaxone, Solu-Medrol O2 2 L Titrate sats between 90-94 DuoNebs Will eval for room air sats for home O2 prior to discharge 02/01 thoracentesis by interventional radiology for left-sided pleural effusion 1.2 L of yellow fluid removed. Fluid sent to lab Insulin-dependent diabetes mellitus SSI, resume home meds Blood glucose monitoring blood glucose 215 Long-acting insulin added Full code DVT heparin subcu twice daily Diet cardiac
--- NOTE | 2025-02-01 09:43 | ECHO ---
HEIGHT: 5 ft 5 in WEIGHT: 136 lb 0 oz DATE OF STUDY: 01/31/[address]: Yahaira South TOURIST ADVISER-Airam 2-DIMENSIONAL: YES M.MODE: YES DOPPLER: YES COLOR FLOW: YES TDS: PORTABLE: YES DEFINITY: BUBBLE STUDY: DIAGNOSIS: ACUTE HEART FAILURE CARDIAC HISTORY: CATHERIZATION: YES SURGERY: YES PROSTHETIC VALVE: NO PACEMAKER: NO MEASUREMENTS (cm) DIASTOLIC (NORMALS) SYSTOLIC (NORMALS) IVSd 1.0 (0.6-1.2) LA Diam 3.7 (1.9-4.0) LVEF 25-30% LVIDd 3.7 (3.5-5.7) LVIDs 3.2 (2.0-3.5) %FS 12% LVPWd 1.2 (0.6-1.2) Ao Diam 2.2 (2.0-3.7) 2 DIMENSIONAL ASSESSMENT: RIGHT ATRIUM: NORMAL LEFT ATRIUM: DILATED RIGHT VENTRICLE: NORMAL LEFT VENTRICLE: NORMAL TRICUSPID VALVE: MODERATE TRICUSPID REGURGITATION MITRAL VALVE: MITRAL VALVE CLIP PULMONIC VALVE: MILD PULMONARY REGURGIATION AORTIC VALVE: NORMAL PERICARDIAL EFFUSION: SMALL CIRCUMFERENTIAL AORTIC ROOT: NORMAL LEFT VENTRICULAR WALL MOTION: SEVERE GLOBAL HYPOKINEISIS DOPPLER/COLOR FLOW: DIASTOLIC DYSFUNCTION COMMENTS: 1. SEVERELY REDUCED LEFT VENTRICULAR SYSTOLIC FUNCTION, EJECTION FRACTION 25-30%, SEVERE GLOBAL HYPOKINESIS 2. MITRAL VALVE CLIP CAN BE SEEN WITH MODERATE MITRAL REGURGITATION, MEAN GRADIENT ACROSS MITRAL VALVE IS 12 mmHg 3. MILD AORTIC REGURGITATION 4. MODERATE TRICUSPID REGURGITATION 5. SEVERE PULMONARY HYPERTENSION (RIGHT VENTRICULAR SYSTOLIC PRESSURE GREATER THAN 60 mmHg) 6. ELEVATED FILLING PRESSURE (RIGHT ATRIAL PRESSURE GREATER THAN 20 mmHg) TECHNOLOGIST: VALERIA OZUNA
--- NOTE | 2025-02-01 10:55 | P.PN ---
Subjective Date of Service: 02/01/25 Chief Complaint: Shortness of breath Subjective: No new changes Review of Systems 10-point ROS is otherwise unremarkable Physical Examination - Vital Signs Temperature: 97.5 F Blood Pressure: 138/65 Pulse: 87 Respirations: 22 Pulse Ox (%): 91 - Physical Exam General: Alert, In no apparent distress HEENT: Atraumatic, PERRLA, EOMI Neck: Supple, JVD not distended Respiratory: Clear to auscultation bilaterally, Normal air movement Cardiovascular: Regular rate/rhythm, Normal S1 S2 Gastrointestinal: Normal bowel sounds, No tenderness Musculoskeletal: No tenderness Integumentary: No rashes Neurological: Normal speech, Normal tone, Normal affect Lymphatics: No axilla or inguinal lymphadenopathy - Studies Medications List Reviewed: Yes Assessment And Plan - Current Problems (Diagnosis) (1) Acute on chronic diastolic (congestive) heart failure Current Visit: Yes Status: Acute Plan: Continue Lasix 40 mg IV BID Give Metolazone 2.5 mg po x1 D/C any IV fluids add Coreg 3.125 mg po BID Monitor input and output accurately monitor and correct electrolytes. (2) NSTEMI (non-ST elevated myocardial infarction) Current Visit: Yes Status: Acute Plan: troponin mild elevated, most likely type 2 FL from CHF/JOSIAS on CKD Echo shows severe reduced LV systolic function with severe global hypoknesis Patient coronary angiogram in 2022 shows significant [place] CAD with patent NIÑO-LAD and SVG-RPDA, occluded SVG-OM ASA 81 mg daily Lipitor 40 mg daily add coreg 3.125 mg po BID (3) Hypertension Current Visit: No Status: Chronic Plan: add coreg continue to monitor. Qualifiers: Hypertension type: unspecified Qualified Code(s): I10 - Essential (primary) hypertension Physician Review: Patient Assessed, Agree with Above Assessment and Plan
--- NOTE | 2025-02-01 11:04 | RAD REPORT ---
Procedure: Chest Single View HISTORY: Thoracentesis FINDINGS: A left pneumothorax is not visualized status post thoracentesis
--- NOTE | 2025-02-01 11:36 | RAD REPORT ---
PROCEDURE: ULTRASOUND GUIDED THORACENTESIS CLINICAL INDICATION: Left Pleural effusion TECHNIQUE: The risks, benefits and alternatives to the procedure explained to the patient and informed consent o btained. The skin and deeper tissues anesthetized with lidocaine. Under sonographic guidance an 8.3 Y[place] catheter was advanced into the left pleural space. 1.2 L of yellow fluid removed. Fluid sent to lab. Patient experienced no immediate consultation. IMPRESSION: Thoracentesis
--- NOTE | 2025-02-01 12:17 | P.PN ---
Subjective Date of Service: 02/01/25 Chief Complaint: Shortness of breath Patient I saw in the morning complaining of cough congestion denies any chest pain no fever or chills scheduled for a thoracentesis this afternoon Review of Systems General: Weakness Respiratory: Cough, Shortness of Breath Physical Examination - Vital Signs Temperature: 97.5 F Blood Pressure: 138/65 Pulse: 87 Respirations: 22 Pulse Ox (%): 91 - Physical Exam General: Alert, Oriented x3 Respiratory: Diminished (Left side) Cardiovascular: No edema, Regular rate/rhythm, Normal S1 S2 - Studies Medications List Reviewed: Yes Assessment And Plan - Current Problems (Diagnosis) (1) Pleural effusion Current Visit: Yes Status: Acute Plan: Patient is s/p thoracentesis chest x-ray no pneumothorax patient has chronic renal failure with hypoxemia mild normocytic anemia so far vital signs are stable complaining of chest congestion have added a flutter valve echocardiogram shows severe congestive heart failure SEVERELY REDUCED LEFT VENTRICULAR SYSTOLIC FUNCTION, EJECTION FRACTION 25-30%, SEVERE GLOBAL HYPOKINESIS 2. MITRAL VALVE CLIP CAN BE SEEN WITH MODERATE MITRAL REGURGITATION, MEAN GRADIENT ACROSS MITRAL VALVE IS 12 mmHg 3. MILD AORTIC REGURGITATION 4. MODERATE TRICUSPID REGURGITATION 5. SEVERE PULMONARY HYPERTENSION (RIGHT VENTRICULAR SYSTOLIC PRESSURE GREATER THAN 60 mmHg) 6. ELEVATED FILLING PRESSURE (RIGHT ATRIAL PRESSURE GREATER THAN 20 mmHg) Labs all reviewed no evidence of sepsis. DC antibiotics tomorrow patient's pulmonary hypertension is secondary to left ventricular dysfunction no treatment is needed right now continue with diuretics Physician Review: Patient Assessed, Agree with Above Assessment and Plan
--- NOTE | 2025-02-01 13:02 | P.PN ---
This is an attestation to MEDICAL RECEPTIONIST ASSISTANT note. Subjective: c/o generalized pain. SOB better after thoracentesis. NO chest or abd pain. Not able to obtain good history. Looks comfortable in the bed. Objective: General appearance: Alert and comfortable CVS: Normal S1 and S2 Lungs: Clear to auscultation bilaterally Abdomen: Soft, bowel sounds present, no tenderness Extremities: No lower extremity edema 79-year-old patient with elevated troponin, acute systolic heart failure, cardiology is on board, echo showed 25 to 30% EF, moderate tricuspid regurgitation, moderate mitral regurgitation, small pericardial effusion, severe pulmonary hypertension, cardiology is following, continue diuretics. Acute on chronic renal failure stage IIIa, CT chest abdomen pelvis showed pneumonia, pleural effusions, mediastinal hilar adenopathy, esophageal and gastric wall thickening, left hydronephrosis, bladder thickening, continue antibiotics, add PPI, will need repeat CT chest in 6 months as per radiology recommendations, f/u with GI and urology, repeat renal US 01/31 showed mild left hydronephrosis, need urology follow-up, no urology consult available in the hospital now. Chronic anemia thrombocytopenia, monitor closely. Plan discussed with the patient, not sure how much she follows, discussed with case management team.
[2025-02-01 14:45] LABS: Tube # SINGLE
[2025-02-01 14:46] LABS: Appearance CLEAR (CLEAR); Body Fluid Source PLEURAL; Color of fluid Yellow (COLORLESS)
[2025-02-01 14:47] LABS: Body Fluid Lymphocytes 5 %; Body Fluid WBC 112 /mm^3; Fluid Total Cells Count 100
--- NOTE | 2025-02-01 19:28 | PN ---
Date of Progress Note: 02/01/2025 Subjective: The patient was admitted to the hospital with acute kidney injury secondary to cardiorenal. The patient has been diuresed. The patient is scheduled for thoracocentesis today. Physical Examination: Vital Signs: When I saw the patient, blood pressure 138/65, pulse of 87. Chest: Decreased entry on the left base. Heart: S1, S2. Systolic murmur. Abdomen: Soft, nontender. Extremities: +1 edema. Neuro: Alert. No focality. Laboratory Data: Hemoglobin 10.2. Sodium 140, potassium 4.5, bicarb 24, BUN 88, creatinine 2.5 , calcium 9.1. Phosphorus 4.9. Current Medications: The patient is on include albuterol, atorvastatin, Lasix 40 b.i.d., pantoprazole. Assessment And Plan: 1. Acute kidney injury secondary to cardiorenal, still on the overvolume side. I am going to continue with diuresis. We will follow up respiratory status after thoracocentesis. 2. Hypertension. Currently, blood pressure is stable. We will continue to utilize blood pressure for more diuresis. 3. Congestive heart failure with exacerbation, ejection fraction of 25%. Continue optimizing fluid status. We will follow up with Cardiology. 4. Anasarca secondary to cardiorenal. Minimal protein urea, hypothyroidism has been ruled out. I am going to continue diuresis as above. 5. Hyponatremia, dilutional, resolved. Time spent examining the patient [id number] reviewing that the lab and the radiology placing order discussing the case with the patient discussing the case with the swat team member including hospitalist and nursing staff more than 55 minutes LILY Voice ID: [id number] Report ID: [id number] ROBERT
[2025-02-02 09:27] LABS: Absolute Lymphocytes (CBC) 0.4 K/uL (0.7-4.9); Absolute Monocytes 1.8 K/uL (0.1-1.3); Absolute Neutrophil 6.8 K/uL (1.8-8.0); Basophils % 0.3 % (0-1.3); Eosinophils % 0.1 % (0-4.4); Hematocrit 35.2 % (36.0-45.0); Hemoglobin 11.6 g/dL (12.0-15.0); Lymphocytes % 4.5 % (15.3-44.8); MCH 30.2 pg (27.0-35.0); MCHC 32.9 g/dL (32.0-36.0); MCV 91.6 fL (80-100); MPV 8.5 fL (7.6-11.3); Monocytes % 20.3 % (3.3-12.3); Neutrophils % 74.8 % (41.7-73.7); Nucleated Red Blood Cells % 0.1 % (0-0); Platelets 77 thou/uL (152-406); RBC Red Blood Cell Count 3.84 M/uL (3.86-4.86); Red Cell Distribution Width 16.1 % (12.1-15.2)
[2025-02-02 09:46] LABS: Albumin 2.5 g/dL (3.4-5.0); Anion Gap 10.6 mEq/L (5.0-15.0); Magnesium 1.9 mg/dL (1.6-2.4); Phosphorus 4.1 mg/dL (2.5-4.9); Potassium 4.6 mEq/L (3.5-5.1)
--- NOTE | 2025-02-02 11:15 | P.PN ---
Subjective Date of Service: 02/02/25 Chief Complaint: Shortness of breath Subjective: No new changes, No C/O voiced, Tolerating diet, Ambulating, Improving Review of Systems 10-point ROS is otherwise unremarkable Physical Examination - Vital Signs Temperature: 97.5 F Blood Pressure: 131/61 Pulse: 99 Respirations: 18 Pulse Ox (%): 98 - Physical Exam General: Alert, In no apparent distress HEENT: Atraumatic, PERRLA, EOMI Neck: Supple, JVD not distended Respiratory: Clear to auscultation bilaterally, Normal air movement Cardiovascular: Regular rate/rhythm, Normal S1 S2 Gastrointestinal: Normal bowel sounds, No tenderness Musculoskeletal: No tenderness Integumentary: No rashes Neurological: Normal speech, Normal tone, Normal affect Lymphatics: No axilla or inguinal lymphadenopathy - Studies Medications List Reviewed: Yes Assessment And Plan - Current Problems (Diagnosis) (1) Acute on chronic diastolic (congestive) heart failure Current Visit: Yes Status: Acute Plan: Continue Lasix 40 mg IV BID Give Metolazone 2.5 mg po x1 again today D/C any IV fluids add Coreg 3.125 mg po BID Monitor input and output accurately monitor and correct electrolytes. (2) NSTEMI (non-ST elevated myocardial infarction) Current Visit: Yes Status: Acute Plan: troponin mild elevated, most likely type 2 CO from CHF/JOSIAS on CKD Echo shows severe reduced LV systolic function with severe global hypoknesis Patient coronary angiogram in 2022 shows significant [place] CAD with patent NIÑO-LAD and SVG-RPDA, occluded SVG-OM ASA 81 mg daily Lipitor 40 mg daily add coreg 3.125 mg po BID (3) Hypertension Current Visit: No Status: Chronic Plan: add coreg continue to monitor. Qualifiers: Hypertension type: unspecified Qualified Code(s): I10 - Essential (primary) hypertension Physician Review: Patient Assessed, Agree with Above Assessment and Plan
[2025-02-02 12:43] LABS: Blood Morphology Comment NOTED (NOT SEEN); Burr Cells 1+; Differential Total Cells Count 100; Lymphocytes 4 % (15-42); Monocytes 9 % (0-10); Platelet Estimate DECR; Segmented Neutrophils 87 % (40-80)
[2025-02-02] MEDS: METOLAZONE 2.5 MG TABLET PO ONE (13:31)
[2025-02-02] MEDS: FUROSEMIDE 40 MG/4 ML VIAL IV ONE (13:31)
--- NOTE | 2025-02-02 13:41 | P.PN ---
This is an attestation to COLLAR TURNER OPERATOR note. Subjective: c/o chest or abd pain. SOB better after thoracentesis. Looks comfortable in the bed. Objective: General appearance: Alert and comfortable CVS: Normal S1 and S2 Lungs: Clear to auscultation bilaterally Abdomen: Soft, bowel sounds present, no tenderness Extremities: No lower extremity edema 79-year-old patient with elevated troponin, acute systolic heart failure, cardiology is on board, echo showed 25 to 30% EF, moderate tricuspid regurgitation, moderate mitral regurgitation, small pericardial effusion, severe pulmonary hypertension, cardiology is following, continue IV diuretics. Acute on chronic renal failure stage IIIa, CT chest abdomen pelvis showed pneumonia, pleural effusions, mediastinal hilar adenopathy, esophageal and gastric wall thickening, left hydronephrosis, bladder thickening, continue antibiotics, and PPI, will need repeat CT chest in 6 months as per radiology recommendations, f/u with GI and urology, repeat renal US 01/31 showed mild left hydronephrosis, need urology follow-up, no urology consult available in the hospital now. Chronic anemia and thrombocytopenia, monitor closely. Plan discussed with the patient, discussed with case management team.
--- NOTE | 2025-02-02 16:08 | PN ---
Date of Progress Note: 02/02/2025 Subjective: The patient was admitted to the hospital with acute kidney injury secondary to cardioren al, overvolume with respiratory distress. The patient was started on aggressive diuresis. The patie nt responding very well. The patient is status post thoracocentesis yesterday with 1.2 L. Physical Examination: Vital Signs: When I saw the patient, blood pressure 131/63, pulse of 99, afebrile. Chest: Crackles with decreased entry on the left side. Heart: S1, S2. Systolic murmur. Abdomen: Soft, nontender. Extremities: Trace edema. Neurologic: Alert. No focality. Laboratory Data: For the patient, hemoglobin 11.6, sodium 140, potassium 4.6, bicarb 24, BUN 85, cre atinine 2.8, GFR of 17, calcium 9.2, phosphorus 4.1, magnesium 1.9. BNP 31,000. Albumin 2.5, correc osman calcium is 10.4. Current Medications: The patient on, it includes: 1. Atorvastatin. 2. Tylenol. 3. Lasix 40 b.i.d. 4. Zofran. 5. Morphine. Assessment And Plan: 1. Acute kidney injury secondary to cardiorenal, still slightly on the overvolume side. I am going t o give extra dose of Lasix today and we will follow up the patient. 2. Hyponatremia, dilutional. We will optimize fluid status. 3. Respiratory failure secondary to congestive heart failure with exacerbation. I am going to contin ue to optimize the fluid status. The patient had thoracocentesis yesterday. We will continue diuresis and we will monitor the patient . MELODY/SUNNY Voice ID: [id number] Report ID: [id number]
--- NOTE | 2025-02-02 17:28 | P.PN ---
Date of Service: 02/02/25 Subjective Chief Complaint: Shortness of breath Still mildly short of breath, 98% on 2 L Review of Systems 10-point ROS is otherwise unremarkable Physical Examination - Vital Signs Reviewed - Physical Exam General: Alert, Oriented x3, afebrile HEENT: Supple, PERRLA Neck: Supple, Respiratory: Normal air movement, dyspneic, (Crackles,) Cardiovascular: Regular rate/rhythm, Other (+ pulses, no lower ext edema) Capillary refill: <2 Seconds Gastrointestinal: Normal bowel sounds, nontender Musculoskeletal: No swelling, No tenderness Integumentary: No rashes, No breakdown Neurological: Normal speech, answers questions appropriately Assessment And Plan - Current Problems (Diagnosis) (1) NSTEMI (non-ST elevated myocardial infarction) Current Visit: Yes Status: Acute (2) Acute on chronic diastolic heart failure Current Visit: No Status: Acute (3) Acute hypoxic respiratory failure Current Visit: Yes Status: Acute (4) Bilateral pleural effusion Current Visit: Yes Status: Acute (5) COPD (chronic obstructive pulmonary disease) Current Visit: Yes Status: Chronic Qualifiers: COPD type: COPD with acute exacerbation Qualified Code(s): J44.1 - Chronic obstructive pulmonary disease with (acute) exacerbation (6) Insulin-requiring or dependent type II diabetes mellitus Current Visit: Yes Status: Chronic (7) Hyperlipidemia Current Visit: Yes Status: Chronic Qualifiers: Hyperlipidemia type: unspecified Qualified Code(s): E78.5 - Hyperlipidemia, unspecified (8) Coronary artery disease Current Visit: No Status: Chronic Qualifiers: Coronary Disease-Associated Artery/Lesion type: [place] artery (9) Hypertension Current Visit: No Status: Chronic Qualifiers: Hypertension type: unspecified Qualified Code(s): I10 - Essential (primary) hypertension - Plan Admit to [facility] Acute on chronic heart failure with reduced ejection fraction 20 to 30% mitral regurgitation tricuspid regurgitation severe pulmonary hypertension NSTEMI Cardiology to consult No complaint of chest pain Telemetry Daily weight Diuresis Trend BMP, troponin Statin, aspirin, metoprolol chest x-ray Mild cardiomegaly, moderate left and small right pleural effusion with likely pulmonary edema, bibasilar pneumonia, CT of the chest/abdomen without IMPRESSION: Fluid overload including moderate left and small right pleural effusion, pulmonary edema, trace ascites, and body wall edema.Widespread micronodularity in the lungs suspicious for an infectious or inflammatory process including secondary to atypical sources. Consider 6 month follow-up chest CT. Mild left-sided hydroureteronephrosis without evidence of obstructing stone or mass. This could be secondary to infection or possibly distal ureteral stricture. BNP 43,106, repeat 45, 911, 40,000 150 Troponin 110, 98 01/31 Echo severely reduced EF 25 to 30%, moderate mitral regurgitation, mild aortic GERD regurgitation, moderate tricuspid cuspid regurgitation severe pulmonary hypertension 01/31Give Metolazone 2.5 mg po x1 again today, Continue Lasix 40 mg IV BID add Coreg 3.125 mg po BID ASA 81 mg daily, Lipitor 40 mg daily add coreg 3.125 mg po BID Acute kidney injury likely secondary to prerenal CHF left-sided hydronephrosis Nephrology consulted Renal ultrasound Mild left-sided hydronephrosis. No right-sided hydronephrosis. BUN 69, 87, 88 Cr 2.35,, 2.52, 2.59 GFR 20, 19, 18 Will need to follow-up with urology after discharge Microcytic anemia Thrombocytopenia H&H 11.0/32.9-> 9.528.6-> 9.127.1,, 10.2/30.3 platelets 88, 83, 84, 87 Transfuse less than 7 Trend H&H, trend platelet Acute hypoxic respiratory failure secondary to pulmonary edema/underlying COPD severe pulmonary hypertension COPD Pulmonary consult Levaquin, ceftriaxone, Solu-Medrol O2 2 L Titrate sats between 90-94 DuoNebs Will eval for room air sats for home O2 prior to discharge 02/01 thoracentesis by interventional radiology for left-sided pleural effusion 1.2 L of yellow fluid removed. Fluid sent to lab Insulin-dependent diabetes mellitus SSI, resume home meds Blood glucose monitoring blood glucose 215 Long-acting insulin added Full code DVT heparin subcu twice daily Diet cardiac
[2025-02-02] MEDS: ASPIRIN EC 81 MG TAB PO ONE (18:19)
[2025-02-02] MEDS: carvediloL 3.125 MG TAB PO SCH (18:19)
[2025-02-02] MEDS ORDERED: ATORVASTATIN 40 MG TAB PO SCH (21:00)
[2025-02-03] MEDS: MORPHINE 2 MG/ML SYR IV PRN (02:59)
[2025-02-03 07:55] LABS: Absolute Lymphocytes (CBC) 0.4 K/uL (0.7-4.9); Absolute Monocytes 1.3 K/uL (0.1-1.3); Absolute Neutrophil 4.8 K/uL (1.8-8.0); Basophils % 0.4 % (0-1.3); Eosinophils % 0.6 % (0-4.4); Hematocrit 29.8 % (36.0-45.0); Hemoglobin 10.1 g/dL (12.0-15.0); Lymphocytes % 5.9 % (15.3-44.8); MCH 30.4 pg (27.0-35.0); MCV 89.6 fL (80-100); MPV 8.3 fL (7.6-11.3); Monocytes % 19.4 % (3.3-12.3); Neutrophils % 73.7 % (41.7-73.7); Nucleated Red Blood Cells % 0.1 % (0-0); Platelets 69 thou/uL (152-406); RBC Red Blood Cell Count 3.33 M/uL (3.86-4.86)
[2025-02-03 08:04] LABS: Albumin 2.2 g/dL (3.4-5.0); Anion Gap 9.7 mEq/L (5.0-15.0); Magnesium 1.8 mg/dL (1.6-2.4); Phosphorus 3.5 mg/dL (2.5-4.9); Potassium 3.7 mEq/L (3.5-5.1)
--- NOTE | 2025-02-03 11:25 | P.PN ---
Subjective Date of Service: 02/03/25 Chief Complaint: Shortness of breath Subjective: No new changes, No C/O voiced, Tolerating diet, Ambulating, Improving Review of Systems 10-point ROS is otherwise unremarkable Physical Examination - Vital Signs Temperature: 97.7 F Blood Pressure: 118/60 Pulse: 80 Respirations: 14 Pulse Ox (%): 100 - Physical Exam General: Alert, In no apparent distress HEENT: Atraumatic, PERRLA, EOMI Neck: Supple, JVD not distended Respiratory: Clear to auscultation bilaterally, Normal air movement Cardiovascular: Regular rate/rhythm, Normal S1 S2 Gastrointestinal: Normal bowel sounds, No tenderness Musculoskeletal: No tenderness Integumentary: No rashes Neurological: Normal speech, Normal tone, Normal affect Lymphatics: No axilla or inguinal lymphadenopathy - Studies Microbiology Data (last 24 hrs): 01/29/25 10:00 Blood - Blood Aerobic Blood Culture - Final No growth in 5 days. 01/29/25 10:00 Blood - Blood Anaerobic Blood Culture - Final No growth in 5 days. 01/29/25 10:16 Blood - Blood Aerobic Blood Culture - Final No growth in 5 days. 01/29/25 10:16 Blood - Blood Anaerobic Blood Culture - Final No growth in 5 days. Medications List Reviewed: Yes Assessment And Plan - Current Problems (Diagnosis) (1) Acute on chronic diastolic (congestive) heart failure Current Visit: Yes Status: Acute Plan: Continue Lasix 40 mg IV BID Continue Coreg 3.125 mg po BID Monitor input and output accurately monitor and correct electrolytes. (2) NSTEMI (non-ST elevated myocardial infarction) Current Visit: Yes Status: Acute Plan: troponin mild elevated, most likely type 2 [place] from CHF/JOSIAS on CKD Echo shows severe reduced LV systolic function with severe global hypoknesis Patient coronary angiogram in 2022 shows significant [place] CAD with patent NIÑO-LAD and SVG-RPDA, occluded SVG-OM ASA 81 mg daily Lipitor 40 mg daily add coreg 3.125 mg po BID (3) Hypertension Current Visit: No Status: Chronic Plan: Coreg 3.125 mg po BID continue to monitor. Qualifiers: Hypertension type: unspecified Qualified Code(s): I10 - Essential (primary) hypertension Physician Review: Patient Assessed, Agree with Above Assessment and Plan
[2025-02-03] MEDS: Magnesium Sulfate 2gm IVPB 2 G/50 ML BAG IV ONE (13:18)
[2025-02-03] MEDS: POTASSIUM CL SA 10 MEQ TAB PO ONE (13:18)
--- NOTE | 2025-02-03 15:34 | P.PN ---
Subjective Date of Service: 02/03/25 Chief Complaint: Shortness of breath Subjective: No chest or abd pain. SOB better after thoracentesis. Looks comfortable in the bed. Objective: General appearance: Alert and comfortable CVS: Normal S1 and S2 Lungs: Clear to auscultation bilaterally Abdomen: Soft, bowel sounds present, no tenderness Extremities: No lower extremity edema Physical Examination - Vital Signs Temperature: 97.9 F Blood Pressure: 123/60 Pulse: 87 Respirations: 16 Pulse Ox (%): 100 - Studies Microbiology Data (last 24 hrs): 01/29/25 10:00 Blood - Blood Aerobic Blood Culture - Final No growth in 5 days. 01/29/25 10:00 Blood - Blood Anaerobic Blood Culture - Final No growth in 5 days. 01/29/25 10:16 Blood - Blood Aerobic Blood Culture - Final No growth in 5 days. 01/29/25 10:16 Blood - Blood Anaerobic Blood Culture - Final No growth in 5 days. Medications List Reviewed: Yes Assessment And Plan - Plan Assessment And Plan - Current Problems (Diagnosis) (1) NSTEMI (non-ST elevated myocardial infarction) Current Visit: Yes Status: Acute (2) Acute on chronic diastolic heart failure Current Visit: No Status: Acute (3) Acute hypoxic respiratory failure Current Visit: Yes Status: Acute (4) Bilateral pleural effusion Current Visit: Yes Status: Acute (5) COPD (chronic obstructive pulmonary disease) Current Visit: Yes Status: Chronic Qualifiers: COPD type: COPD with acute exacerbation Qualified Code(s): J44.1 - Chronic obstructive pulmonary disease with (acute) exacerbation (6) Insulin-requiring or dependent type II diabetes mellitus Current Visit: Yes Status: Chronic (7) Hyperlipidemia Current Visit: Yes Status: Chronic Qualifiers: Hyperlipidemia type: unspecified Qualified Code(s): E78.5 - Hyperlipidemia, unspecified (8) Coronary artery disease Current Visit: No Status: Chronic Qualifiers: Coronary Disease-Associated Artery/Lesion type: [place] artery (9) Hypertension Current Visit: No Status: Chronic Qualifiers: Hypertension type: unspecified Qualified Code(s): I10 - Essential (primary) hypertension - Plan Acute on chronic heart failure with reduced ejection fraction 20 to 30% mitral regurgitation tricuspid regurgitation severe pulmonary hypertension NSTEMI Cardiology to consult on board continue current meds Acute kidney injury likely secondary to prerenal CHF left-sided hydronephrosis Nephrology consulted Renal ultrasound Mild left-sided hydronephrosis. No right-sided hydronephrosis. Will need to follow-up with urology after discharge Microcytic anemia Thrombocytopenia monitor counts Acute hypoxic respiratory failure secondary to pulmonary edema/underlying COPD severe pulmonary hypertension COPD Pulmonary consulted 02/01 thoracentesis by interventional radiology for left-sided pleural effusion 1.2 L of yellow fluid removed. o2 req improving Insulin-dependent diabetes mellitus cont insulin 79-year-old patient with elevated troponin, acute systolic heart failure, cardiology is on board, echo showed 25 to 30% EF, moderate tricuspid regurgitation, moderate mitral regurgitation, small pericardial effusion, severe pulmonary hypertension, cardiology is following, continue IV diuretics. Acute on chronic renal failure stage IIIa, CT chest abdomen pelvis showed pneumonia, pleural effusions, mediastinal hilar adenopathy, esophageal and gastric wall thickening, left hydronephrosis, bladder thickening, continue antibiotics, and PPI, will need repeat CT chest in 6 months as per radiology recommendations, f/u with GI and urology, repeat renal US 01/31 showed mild left hydronephrosis, need urology follow-up, no urology consult available in the hospital now. Chronic anemia and thrombocytopenia, monitor closely. Plan discussed with the patient, discussed with case management team. DC home soon once volume status better and cleared by consults. Physician Review: Patient Assessed, Agree with Above Assessment and Plan
--- NOTE | 2025-02-03 16:20 | PN ---
Date of Progress Note: 02/03/2025 Subjective: The patient was admitted to the hospital with congestive heart failure with exacerbation with acute kidney injury secondary to cardiorenal. The patient had been diuresed very well. Still complaining of shortness of breath. The patient has thoracocentesis day before yesterday, had 1.2 L removal. The patient today still complaining of shortness of breath. Physical Examination: Vital Signs: Blood pressure 123/60, pulse of 87, afebrile. Chest: Crackles with decreased entry on the left side. Heart: S1, S2. Systolic murmur. Abdomen: Soft, nontender. Extremities: Trace edema. Neurologic: Alert. No focality. Lab Data: Patient hemoglobin 10.1. Sodium 139, potassium 3.7, bicarb 26, BUN 83, creatinine 2.7, ca lcium 8.6, phosphorus 3.5, magnesium 1.8, albumin 2.2, corrected calcium is 10. Current Medications: The patient on include, 1. Atorvastatin. 2. Carvedilol. 3. Aspirin. 4. Lasix 40 b.i.d. 5. Metolazone. Assessment And Plan: 1. Chronic kidney disease stage 3B/4 with acute kidney injury secondary to cardiorenal, still on the overvolume side. I am going to go ahead and increase her Lasix to 80 mg. I agree with metolazone an d we will continue to monitor the patient. 2. Hypertension. Try to utilize blood pressure for more diuresis. 3. Hypokalemia, we will supplement. 4. Hypomagnesemia, we will supplement. 5. Congestive heart failure with exacerbation as above. MELODY/SUNNY Voice ID: [id number] Report ID: [id number]
[2025-02-03] MEDS: FUROSEMIDE 40 MG/4 ML VIAL IV SCH (16:23)
[2025-02-04 09:14] LABS: Absolute Eosinophils 0.1 K/uL (0-0.5); Absolute Lymphocytes (CBC) 0.4 K/uL (0.7-4.9); Absolute Neutrophil 4.2 K/uL (1.8-8.0); Basophils % 0.3 % (0-1.3); Eosinophils % 1.2 % (0-4.4); Hematocrit 31.1 % (36.0-45.0); Hemoglobin 10.4 g/dL (12.0-15.0); MCH 29.8 pg (27.0-35.0); MCHC 33.5 g/dL (32.0-36.0); MCV 89.2 fL (80-100); MPV 8.6 fL (7.6-11.3); Monocytes % 17.1 % (3.3-12.3); Neutrophils % 74.4 % (41.7-73.7); Nucleated Red Blood Cells % 0.1 % (0-0); Platelets 85 thou/uL (152-406); RBC Red Blood Cell Count 3.49 M/uL (3.86-4.86); Red Cell Distribution Width 15.8 % (12.1-15.2)
[2025-02-04 09:27] LABS: Albumin 2.3 g/dL (3.4-5.0); Anion Gap 7.9 mEq/L (5.0-15.0); Magnesium 1.7 mg/dL (1.6-2.4); Phosphorus 3.5 mg/dL (2.5-4.9); Potassium 3.9 mEq/L (3.5-5.1)
--- NOTE | 2025-02-04 14:51 | P.PN ---
Subjective Date of Service: 02/04/25 Chief Complaint: Shortness of breath Subjective: No new changes Review of Systems 10-point ROS is otherwise unremarkable Physical Examination - Vital Signs Temperature: 97.8 F Blood Pressure: 133/62 Pulse: 90 Respirations: 16 Pulse Ox (%): 95 - Physical Exam General: Alert, In no apparent distress HEENT: Atraumatic, PERRLA, EOMI Neck: Supple, JVD not distended Respiratory: Clear to auscultation bilaterally, Normal air movement Cardiovascular: Regular rate/rhythm, Normal S1 S2 Gastrointestinal: Normal bowel sounds, No tenderness Musculoskeletal: No tenderness Integumentary: No rashes Neurological: Normal speech, Normal tone, Normal affect Lymphatics: No axilla or inguinal lymphadenopathy - Studies Microbiology Data (last 24 hrs): 01/29/25 10:00 Blood - Blood Aerobic Blood Culture - Final No growth in 5 days. 01/29/25 10:00 Blood - Blood Anaerobic Blood Culture - Final No growth in 5 days. 01/29/25 10:16 Blood - Blood Aerobic Blood Culture - Final No growth in 5 days. 01/29/25 10:16 Blood - Blood Anaerobic Blood Culture - Final No growth in 5 days. Medications List Reviewed: Yes Assessment And Plan - Current Problems (Diagnosis) (1) Acute on chronic diastolic (congestive) heart failure Current Visit: Yes Status: Acute Plan: Patient looks euvolemic on exam despite still feeling weak and requiring oxygen, kidney function is worsening, get chest x ray would consider slowing down diuresis to lasix 40 mg po BID if ok with Nephrology team. Continue Coreg 3.125 mg po BID Monitor input and output accurately monitor and correct electrolytes. (2) NSTEMI (non-ST elevated myocardial infarction) Current Visit: Yes Status: Acute Plan: troponin mild elevated, most likely type 2 [place] from CHF/JOSIAS on CKD Echo shows severe reduced LV systolic function with severe global hypoknesis Patient coronary angiogram in 2022 shows significant [place] CAD with patent NIÑO-LAD and SVG-RPDA, occluded SVG-OM ASA 81 mg daily Lipitor 40 mg daily coreg 3.125 mg po BID (3) Hypertension Current Visit: No Status: Chronic Plan: Coreg 3.125 mg po BID continue to monitor. Qualifiers: Hypertension type: unspecified Qualified Code(s): I10 - Essential (primary) hypertension Physician Review: Patient Assessed, Agree with Above Assessment and Plan
--- NOTE | 2025-02-04 18:20 | P.PN ---
Subjective Date of Service: 02/04/25 Chief Complaint: Shortness of breath Subjective: No new changes no acute events Review of Systems 10-point ROS is otherwise unremarkable Physical Examination - Vital Signs Temperature: 98.1 F Blood Pressure: 124/60 Pulse: 94 Respirations: 16 Pulse Ox (%): 100 - Physical Exam General: Alert HEENT: Atraumatic, Normocephalic Respiratory: Clear to auscultation bilaterally Cardiovascular: Regular rate/rhythm Gastrointestinal: Soft and benign, Non-distended - Studies Medications List Reviewed: Yes Assessment And Plan - Current Problems (Diagnosis) (1) Acute hypoxic respiratory failure Current Visit: Yes Status: Acute (2) Acute on chronic diastolic (congestive) heart failure Current Visit: Yes Status: Acute (3) Bilateral pleural effusion Current Visit: Yes Status: Acute (4) NSTEMI (non-ST elevated myocardial infarction) Current Visit: Yes Status: Acute (5) Pleural effusion Current Visit: Yes Status: Acute (6) COPD (chronic obstructive pulmonary disease) Current Visit: Yes Status: Chronic Qualifiers: COPD type: COPD with acute exacerbation Qualified Code(s): J44.1 - Chronic obstructive pulmonary disease with (acute) exacerbation (7) Hyperlipidemia Current Visit: Yes Status: Chronic Qualifiers: Hyperlipidemia type: unspecified Qualified Code(s): E78.5 - Hyperlipidemia, unspecified (8) Insulin-requiring or dependent type II diabetes mellitus Current Visit: Yes Status: Chronic - Plan Acute on chronic heart failure with reduced ejection fraction 20 to 30% mitral regurgitation tricuspid regurgitation severe pulmonary hypertension NSTEMI Cardiology eval appreciated continue current meds Acute kidney injury likely secondary to prerenal CHF left-sided hydronephrosis Nephrology consulted Renal ultrasound Mild left-sided hydronephrosis. No right-sided hydronephrosis. Will need to follow-up with urology after discharge Microcytic anemia Thrombocytopenia monitor counts Acute hypoxic respiratory failure secondary to pulmonary edema/underlying COPD severe pulmonary hypertension COPD Pulmonary consulted 02/01 thoracentesis by interventional radiology for left-sided pleural effusion 1.2 L of yellow fluid removed. o2 req improving Insulin-dependent diabetes mellitus cont insulin 79-year-old patient with elevated troponin, acute systolic heart failure, cardiology is on board, echo showed 25 to 30% EF, moderate tricuspid reg urgitation, moderate mitral regurgitation, small pericardial effusion, severe pulmonary hypertension, cardiology is following, continue IV diuretics. Acute on chronic renal failure stage IIIa, CT chest abdomen pelvis showed pneumonia, pleural effusions, mediastinal hilar adenopathy, esophageal and gastric wall thickening, left hydronephrosis, bladder thickening, continue antibiotics, and PPI, will need repeat CT chest in 6 months as per radiology recommendations, f/u with GI and urology, repeat renal US 01/31 showed mild left hydronephrosis, need urology follow-up, no urology consult available in the hospital now. Chronic anemia and thrombocytopenia, monitor closely. Plan discussed with the patient, discussed with case management team. DC home soon once volume status better and cleared by consults. Physician Review: Patient Assessed, Agree with Above Assessment and Plan
[2025-02-04] MEDS: ACETAMINOPHEN 500 MG TAB PO PRN (21:13)
--- NOTE | 2025-02-04 21:45 | PN ---
Date of Progress Note: 02/04/2025 Subjective: The patient is complaining of weakness and still has shortness of breath. Her Lasix is increased. We will hold Lasix this evening. Order chest x-ray for tomorrow and consider to switch t o p.o. if improvement. Objective: Vital Signs: Temperature 98.1, pulse rate 92, blood pressure 124/62. General: Awake, looks clinically ill. Neck: Supple. No elevated JVD. Heart: Regular rate and rhythm. Normal S1, S2. Chests: Clear to auscultation without rales or wheezes. Abdomen: Soft, nontender. Extremities: No edema. Laboratory Data: Sodium 137, potassium 3.9, BUN 85, creatinine of 3. Albumin 2.3. Assessment And Plan: 1. Acute kidney injury on chronic kidney disease, possibly due to cardiorenal syndrome. The patient' s creatinine is up to 3. The patient looks get a chest x-ray tomorrow. 2. Heart failure with reduced ejection fraction. The patient is status post 1.2 L thoracentesis. Di uretic as above. Low salt diet. 3. Hypertension. Blood pressure is controlled. 4. Diabetes mellitus. Continue insulin. Thanks for allowing me to participate in the patient's care. Total time spent 55 minutes including d ocumentation, reviewing labs, and placing orders. CORINNE Voice ID: [id number] Report ID: [id number]
[2025-02-05 05:50] LABS: Absolute Eosinophils 0.1 K/uL (0-0.5); Absolute Lymphocytes (CBC) 0.6 K/uL (0.7-4.9); Basophils % 0.1 % (0-1.3); Hemoglobin 9.7 g/dL (12.0-15.0); Lymphocytes % 10.4 % (15.3-44.8); MCH 29.8 pg (27.0-35.0); MCHC 33.6 g/dL (32.0-36.0); MCV 88.8 fL (80-100); MPV 8.7 fL (7.6-11.3); Monocytes % 18.1 % (3.3-12.3); Neutrophils % 70.4 % (41.7-73.7); Nucleated Red Blood Cells % 0.1 % (0-0); Platelets 88 thou/uL (152-406); RBC Red Blood Cell Count 3.27 M/uL (3.86-4.86); Red Cell Distribution Width 15.7 % (12.1-15.2)
--- NOTE | 2025-02-05 08:51 | RAD REPORT ---
EXAMINATION: ONE VIEW CHEST XR CLINICAL INDICATION: Female, 79 years old.,CHF TECHNIQUE: Frontal chest projection is submitted. Examination is limited by patient positioning and t echnique. COMPARISON: 02/01/2025 FINDINGS: Progressive left basilar/retrocardiac airspace opacity with small to moderate layering pleural effusi on. Right basilar pleuroparenchymal mild opacity is overall stable. Mild thickening along the right minor fissure. Central interstitial prominence mildly improved since prior exam. No pneumothorax. Th e heart is upper limit of normal in size. Mediastinal contours are unremarkable. IMPRESSION: Progressive left pleural effusion with underlying atelectasis or airspace disease. Stable right pleur al-parenchymal opacity and mildly improved central congestion.
--- NOTE | 2025-02-05 11:12 | P.PN ---
Subjective Date of Service: 02/05/25 Chief Complaint: Shortness of breath having productive cough yellow sputum Physical Examination - Vital Signs Temperature: 98.2 F Blood Pressure: 125/56 Pulse: 84 Respirations: 18 Pulse Ox (%): 100 - Physical Exam General: In no apparent distress HEENT: Atraumatic, Normocephalic Respiratory: Normal air movement Cardiovascular: Regular rate/rhythm Gastrointestinal: Soft and benign, Non-distended Musculoskeletal: No contractures - Studies Medications List Reviewed: Yes Assessment And Plan - Current Problems (Diagnosis) (1) Acute hypoxic respiratory failure Current Visit: Yes Status: Acute (2) Acute on chronic diastolic (congestive) heart failure Current Visit: Yes Status: Acute (3) Bilateral pleural effusion Current Visit: Yes Status: Acute (4) NSTEMI (non-ST elevated myocardial infarction) Current Visit: Yes Status: Acute (5) Pleural effusion Current Visit: Yes Status: Acute (6) COPD (chronic obstructive pulmonary disease) Current Visit: Yes Status: Chronic Qualifiers: COPD type: COPD with acute exacerbation Qualified Code(s): J44.1 - Chronic obstructive pulmonary disease with (acute) exacerbation (7) Hyperlipidemia Current Visit: Yes Status: Chronic Qualifiers: Hyperlipidemia type: unspecified Qualified Code(s): E78.5 - Hyperlipidemia, unspecified (8) Insulin-requiring or dependent type II diabetes mellitus Current Visit: Yes Status: Chronic - Plan Acute on chronic heart failure with reduced ejection fraction 20 to 30% mitral regurgitation tricuspid regurgitation severe pulmonary hypertension NSTEMI Cardiology eval appreciated continue current meds Acute kidney injury likely secondary to prerenal CHF left-sided hydronephrosis Nephrology consulted Renal ultrasound Mild left-sided hydronephrosis. No right-sided hydronephrosis. Will need to follow-up with urology after discharge Microcytic anemia Thrombocytopenia monitor counts Acute hypoxic respiratory failure secondary to pulmonary edema/underlying COPD severe pulmonary hypertension COPD Pulmonary consulted 02/01 thoracentesis by interventional radiology for left-sided pleural effusion 1.2 L of yellow fluid removed. o2 req improving --check procal, followup cxr --add doxy, continue mucinex Insulin-dependent diabetes mellitus cont insulin 79-year-old patient with elevated troponin, acute systolic heart failure, cardiology is on board, echo showed 25 to 30% EF, moderate tricuspid regurgitation, moderate mitral regurgitation, small pericardial effusion, severe pulmonary hypertension, cardiology is following, continue IV diuretics. Acute on chronic renal failure stage IIIa, CT chest abdomen pelvis showed pneumonia, pleural effusions, mediastinal hilar adenopathy, esophageal and gastric wall thickening, left hydronephrosis, bladder thickening, continue antibiotics, and PPI, will need repeat CT chest in 6 months as per radiology recommendations, f/u with GI and urology, repeat renal US 01/31 showed mild left hydronephrosis, need urology follow-up, no urology consult available in the hospital now. Chronic anemia and thrombocytopenia, monitor closely. Plan discussed with the patient, discussed with case management team. DC home soon once volume status better and cleared by consults. Physician Review: Patient Assessed, Agree with Above Assessment and Plan
[2025-02-05] MEDS: FUROSEMIDE 40 MG TABLET PO SCH (12:37)
[2025-02-05] MEDS: DOXYCYCLINE 100 MG CAP PO SCH (20:38)
[2025-02-05] MEDS: HYDROCODONE/APAP 5/325 MG TAB PO PRN (22:30)
[2025-02-06 06:30] LABS: Absolute Lymphocytes (CBC) 0.6 K/uL (0.7-4.9); Absolute Monocytes 0.9 K/uL (0.1-1.3); Absolute Neutrophil 2.1 K/uL (1.8-8.0); Basophils % 0.2 % (0-1.3); Eosinophils % 0.8 % (0-4.4); Hematocrit 26.4 % (36.0-45.0); Lymphocytes % 15.7 % (15.3-44.8); MCV 88.2 fL (80-100); MPV 8.7 fL (7.6-11.3); Monocytes % 25.5 % (3.3-12.3); Neutrophils % 57.8 % (41.7-73.7); Nucleated Red Blood Cells % 0.3 % (0-0); Platelets 89 thou/uL (152-406); RBC Red Blood Cell Count 2.99 M/uL (3.86-4.86); Red Cell Distribution Width 15.6 % (12.1-15.2)
[2025-02-06 06:45] LABS: Albumin 2.3 g/dL (3.4-5.0); Albumin/Globulin Ratio 0.8 (1.1-1.8); Anion Gap 7.8 mEq/L (5.0-15.0); Bilirubin Total 0.6 mg/dL (0.2-1.0); Potassium 3.8 mEq/L (3.5-5.1); Protein, Total 5.3 g/dL (6.4-8.2)
[2025-02-06 07:04] LABS: Blood Morphology Comment NOTED (NOT SEEN); Differential Total Cells Count 100; Eosinophils 2 % (0-3); Lymphocytes 8 % (15-42); Monocytes 17 % (0-10); Platelet Estimate DECR; Segmented Neutrophils 73 % (40-80); Spherocyte 2+
[2025-02-06] MEDS: NA CHLORIDE 0.9% 250 ML IV ONE (18:52)
[2025-02-07] MEDS: MORPHINE 2 MG/ML SYR IV PRN (03:23)
[2025-02-07 06:21] LABS: Absolute Lymphocytes (CBC) 0.6 K/uL (0.7-4.9); Absolute Monocytes 0.8 K/uL (0.1-1.3); Absolute Neutrophil 1.8 K/uL (1.8-8.0); Basophils % 0.2 % (0-1.3); Eosinophils % 0.7 % (0-4.4); Hematocrit 24.8 % (36.0-45.0); Hemoglobin 8.3 g/dL (12.0-15.0); Lymphocytes % 18.3 % (15.3-44.8); MCH 29.4 pg (27.0-35.0); MCHC 33.5 g/dL (32.0-36.0); MCV 87.8 fL (80-100); MPV 8.7 fL (7.6-11.3); Monocytes % 26.2 % (3.3-12.3); Neutrophils % 54.6 % (41.7-73.7); Nucleated Red Blood Cells % 0.1 % (0-0); Platelets 104 thou/uL (152-406); RBC Red Blood Cell Count 2.83 M/uL (3.86-4.86); Red Cell Distribution Width 15.2 % (12.1-15.2)
[2025-02-07 06:43] LABS: Albumin 2.2 g/dL (3.4-5.0); Albumin/Globulin Ratio 0.7 (1.1-1.8); Anion Gap 9.9 mEq/L (5.0-15.0); Bilirubin Total 0.6 mg/dL (0.2-1.0); Magnesium 1.7 mg/dL (1.6-2.4); Potassium 3.9 mEq/L (3.5-5.1); Protein, Total 5.2 g/dL (6.4-8.2)
[2025-02-07] MEDS: MAGNESIUM SULFATE 1 gm IVPB 1 GM/100 ML BAG IV ONE (09:40)
[2025-02-07] MEDS: POTASSIUM CL SA 10 MEQ TAB PO ONE (09:40)
--- NOTE | 2025-02-07 10:57 | P.PN ---
Date of Service: 02/06/25 Subjective Patient continues to do well. Patient denies any new complaints. Patient remains in bed and not really getting up and moving. Will need to get patient out of bed into the chair. She normally gets into her wheelchair and transfers mainly. Her volume status has been fairly stable. Creatinine has stabilized for the most part. Appreciate nephrology input. Physical Examination - Vital Signs Reviewed - Physical Exam General: In no apparent distress HEENT: Temporal wasting; otherwise within normal limits Respiratory: Clear bilaterally ormal air movement Cardiovascular: Regular rate/rhythm without murmurs Gastrointestinal: Soft and benign, Non-distended Musculoskeletal: No contractures Neuro: Generalized weakness with no focal deficits Assessment And Plan -Assessment/Plan (1) Acute hypoxic respiratory failure Current Visit: Yes Status: Acute -- Most likely related to congestive heart failure; patient has heart failure w ith preserved ejection fraction; continue with diuresing and monitor volume status closely (2) Acute on chronic diastolic (congestive) heart failure Current Visit: Yes Status: Acute -- Continue with diuretics as mentioned above; continue with cardiac meds and strict blood pressure control (3) Bilateral pleural effusion Current Visit: Yes Status: Acute -- As mentioned above (4) NSTEMI (non-ST elevated myocardial infarction); type II myocardial i nfarction Current Visit: Yes Status: Acute -- Continue with cardiac meds (5) COPD (chronic obstructive pulmonary disease) Current Visit: Yes Status: Chronic Qualifiers: COPD type: COPD with acute exacerbation Qualified Code(s): J44.1 - Chronic obstructive pulmonary disease with (acute) exacerbation -- Continue with inhaler therapy (6) Hyperlipidemia Current Visit: Yes Status: Chronic Qualifiers: Hyperlipidemia type: unspecified Qualified Code(s): E78.5 - Hyperlipidemia, unspecified -- Patient with CAD; will continue with statin therapy (7) Insulin-requiring or dependent type II diabetes mellitus Current Visit: Yes Status: Chronic --Strict blood sugar control (8) JOSIAS Current Visit: Yes Status: Chronic -- Renal ultrasound with mild hydronephrosis on the left with normal appearing kidneys on the right; renal function is stable; renal function has progressively worsened and most likely related to worsening cardiorenal functioning (9) Bicytopenia Current Visit: Yes Status: Chronic -- Monitor H&H and platelet count Physician Review: Patient Assessed, Agree with Above Assessment and Plan
--- NOTE | 2025-02-08 02:33 | PN ---
Date of Progress Note: 02/07/2025 Subjective: The patient is complaining of some weakness and shortness of breath. She is on Lasix, L asix dose was increased. Serum creatinine level has increased over last few days. Review of Systems: Denies chest pain, palpitation. Physical Examination: Lungs: Clear to auscultation bilaterally. Heart: S1, S2. ABDOMEN: Soft. Extremities: No edema. Impression And Plan: 1. Acute kidney injury on chronic kidney disease, cardiorenal syndrome. Monitor renal panel and cont inue Lasix. Adjust Lasix to control volemia. 2. Heart failure with systolic dysfunction, status post thoracentesis. Continue diuretic. 3. Hypertension. Blood pressure is controlled. 4. Diabetes mellitus. Continue insulin. EB/MODL Voice ID: [id number] Report ID: [id number]
--- NOTE | 2025-02-08 07:46 | P.PN ---
Date of Service: 02/07/25 Subjective Patient is an 79-year-old female who came to the hospital with hypoxic respiratory failure. Patient was found to have heart failure with reduced ejection fraction as her echocardiogram revealed an ejection fraction of 25 to 30%. Patient's renal function has progressively worsened as well and there is concern that patient has cardiorenal syndrome. Appreciate cardiology and nephrology input. Physical therapy is working with patient and her baseline is getting out of bed into wheelchair. Patient has minimal transfers at this time. Her clinical condition long-term is very poor. Will continue with try to strengthen patient and work on discharge planning. Patient does not want to go home with home health. But she will need to be much stronger and her labs will need to improve prior to discharge home. Physical Examination - Vital Signs Reviewed - Physical Exam General: Alert in no apparent distress HEENT: Temporal wasting; otherwise within normal limits Respiratory: Clear bilaterally ormal air movement Cardiovascular: Regular rate/rhythm without murmurs Gastrointestinal: Soft and benign, Non-distended Musculoskeletal: No contractures Neuro: Generalized weakness with no focal deficits Assessment And Plan -Assessment/Plan (1) Acute hypoxic respiratory failure Current Visit: Yes Status: Acute -- Most likely related to congestive heart failure; patient has heart failure with reduced ejection fraction; continue with diuresing and monitor volume status closely (2) Heart failure with reduced ejection fraction Current Visit: Yes Status: Acute -- Continue with diuretics as mentioned above; continue with cardiac meds and strict blood pressure control (3) Bilateral pleural effusion Current Visit: Yes Status: Acute -- As mentioned above (4) NSTEMI (non-ST elevated myocardial infarction); type II myocardial infarction Current Visit: Yes Status: Acute -- Continue with cardiac meds (5) COPD (chronic obstructive pulmonary disease) Current Visit: Yes Status: Chronic Qualifiers: COPD type: COPD with acute exacerbation Qualified Code(s): J44.1 - Chronic obstructive pulmonary disease with (acute) exacerbation -- Continue with inhaler therapy (6) Hyperlipidemia Current Visit: Yes Status: Chronic Qualifiers: Hyperlipidemia type: unspecified Qualified Code(s): E78.5 - Hyperlipidemia, unspecified -- Patient with CAD; will continue with statin therapy (7) Type II diabetes mellitus Current Visit: Yes Status: Chronic --Strict blood sugar control (8) JOSIAS Current Visit: Yes Status: Chronic -- Renal ultrasound with mild hydronephrosis on the left with normal appearing kidneys on the right; renal function is stable; renal function has progressively worsened and most likely related to worsening cardiorenal functioning (9) Bicytopenia Current Visit: Yes Status: Chronic -- Monitor H&H and platelet count Physician Review: Patient Assessed, Agree with Above Assessment and Plan
[2025-02-08] MEDS: PANTOPRAZOLE 40MG TABLET PO SCH (08:27)
[2025-02-08] MEDS: FUROSEMIDE 40 MG TABLET PO SCH (08:28)
[2025-02-08 11:10] LABS: Absolute Lymphocytes (CBC) 0.7 K/uL (0.7-4.9); Absolute Monocytes 0.9 K/uL (0.1-1.3); Absolute Neutrophil 2.1 K/uL (1.8-8.0); Basophils % 0.3 % (0-1.3); Eosinophils % 0.7 % (0-4.4); Hematocrit 26.3 % (36.0-45.0); Hemoglobin 8.7 g/dL (12.0-15.0); Lymphocytes % 19.7 % (15.3-44.8); MCH 29.7 pg (27.0-35.0); MCHC 33.2 g/dL (32.0-36.0); MCV 89.5 fL (80-100); MPV 8.9 fL (7.6-11.3); Monocytes % 24.6 % (3.3-12.3); Neutrophils % 54.7 % (41.7-73.7); Platelets 90 thou/uL (152-406); RBC Red Blood Cell Count 2.94 M/uL (3.86-4.86); Red Cell Distribution Width 15.1 % (12.1-15.2)
--- NOTE | 2025-02-08 11:22 | PN ---
Date of Progress Note: 02/08/2025 Subjective: The patient was admitted to the hospital with acute kidney injury secondary to cardioren al respiratory failure, found to have cardiorenal syndrome with pleural effusion, status post thoraco centesis. The patient was started on aggressive diuresis. Kidney function declining gradually. Physical Examination: Vital Signs: Blood pressure 121/59, pulse of 88. Chest: Decreased entry on the left base. Heart: S1, S2. Systolic murmur. Abdomen: Soft, nontender. Extremities: Trace edema. Neurologic: Alert. No focality. Laboratory Data: Chest x-ray, cardiomegaly with left-sided pleural effusion. WBC 3.2, hemoglobin 8. 3. Sodium 139, potassium 3.9, bicarb 27, BUN 90, creatinine 3.1, GFR of 15, calcium 8.3, albumin 2.2 . Current Medications: The patient is on include: 1. Doxycycline. 2. Atorvastatin. 3. Carvedilol. 4. Lasix. 5. Pantoprazole. 6. Insulin. Assessment And Plan: 1. Acute kidney injury secondary to cardiorenal, looked to me good diuresis stage. I am going to go ahead and decrease the Lasix to once a day. We will monitor the patient. I am going to go ahead and repeat chest x-ray for better evaluation of the fluid status for the patient and we will follow up. I do not see the need to initiate any renal replacement therapy. We will follow up the patient's co ndition. 2. Hypertension. Continue to utilize blood pressure for diuresis, decrease Lasix and as above. 3. Respiratory failure secondary to pleural effusion, cardiorenal syndrome. Continue diuresis as above and we will follow up. 4. Hyponatremia, dilutional, resolved. MELODY/MODL Voice ID: [id number] Report ID: [id number]
--- NOTE | 2025-02-08 11:38 | RAD REPORT ---
EXAMINATION: ONE VIEW CHEST XR CLINICAL INDICATION: COPD TECHNIQUE: Frontal chest projection is submitted. Examination is limited by patient positioning and t echnique. COMPARISON: 02/05/2025 FINDINGS: Bilateral pulmonary opacities are noted likely representing pulmonary edema. Small right and moderate left pleural effusion. The heart is significantly enlarged. Sternotomy wires. IMPRESSION: Moderate CHF versus volume overload pattern, slightly progressive since prior study.
[2025-02-08 12:05] LABS: Band Neutrophils 1 % (0-1); Blood Morphology Comment NOTED (NOT SEEN); Differential Total Cells Count 100; Eosinophils 2 % (0-3); Lymphocytes 22 % (15-42); Monocytes 18 % (0-10); Platelet Estimate DECR; Segmented Neutrophils 57 % (40-80)
[2025-02-08 12:48] LABS: Anion Gap 10.5 mEq/L (5.0-15.0); Potassium 4.5 mEq/L (3.5-5.1)
--- NOTE | 2025-02-08 14:08 | P.PN ---
Date of Service: 02/08/25 Subjective No new complaint. Patient progressing well. Review of system 10 point review of systems otherwise negative except as per HPI Physical Examination - Vital Signs Reviewed - Physical Exam General: Alert in no apparent distress HEENT: Temporal wasting; otherwise within normal limits Respiratory: Clear bilaterally ormal air movement Cardiovascular: Regular rate/rhythm without murmurs Gastrointestinal: Soft and benign, Non-distended Musculoskeletal: No contractures Neuro: Generalized weakness with no focal deficits Assessment And Plan -Assessment/Plan (1) Acute hypoxic respiratory failure Current Visit: Yes Status: Acute -- Most likely related to congestive heart failure; patient has heart failure with reduced ejection fraction; continue with diuresing and monitor volume status closely (2) Heart failure with reduced ejection fraction Current Visit: Yes Status: Acute -- Continue with diuretics as mentioned above; continue with cardiac meds and strict blood pressure control (3) Bilateral pleural effusion Current Visit: Yes Status: Acute -- As mentioned above (4) NSTEMI (non-ST elevated myocardial infarction); type II myocardial infarction Current Visit: Yes Status: Acute -- Continue with cardiac meds (5) COPD (chronic obstructive pulmonary disease) Current Visit: Yes Status: Chronic Qualifiers: COPD type: COPD with acute exacerbation Qualified Code(s): J44.1 - Chronic obstructive pulmonary disease with (acute) exacerbation -- Continue with inhaler therapy (6) Hyperlipidemia Current Visit: Yes Status: Chronic Qualifiers: Hyperlipidemia type: unspecified Qualified Code(s): E78.5 - Hyperlipidemia, unspecified -- Patient with CAD; will continue with statin therapy (7) Type II diabetes mellitus Current Visit: Yes Status: Chronic --Strict blood sugar control (8) JOSIAS Current Visit: Yes Status: Chronic --Likely secondary to cardiorenal syndrome. Renal ultrasound with mild hydronephrosis on the left with normal appearing kidneys on the right; renal function is stable; renal function has progressively worsened and most likely related to worsening cardiorenal functioning. Strict I's and O's (9) Bicytopenia Current Visit: Yes Status: Chronic -- Monitor H&H and platelet count DVT prophylaxis with heparin
[2025-02-09] MEDS: LEVALBUTEROL 0.63 MG/3 ML NEB NEB PRN (01:18)
[2025-02-09] MEDS: IPRATROPIUM BROM 0.5MG/2.5ML NEB PRN (01:19)
[2025-02-09] MEDS: FUROSEMIDE 40 MG TABLET PO SCH (08:25)
[2025-02-09] MEDS ORDERED: EPOETIN ALFA 10,000 UNIT/ML VIAL SQ ONE (11:24)
--- NOTE | 2025-02-09 11:48 | PN ---
Date of Progress Note: 02/09/2025 Subjective: The patient was admitted to the hospital with acute kidney injury secondary to cardioren al. The patient had been diuresed. The patient's kidney function continued to decline. Physical Examination: Vital Signs: When I saw the patient, blood pressure 124/60, pulse of 90, afebrile. Chest: Crackles, more prominent on the right base. Heart: S1, S2. Systolic murmur. Abdomen: Soft, nontender. Extremities: Trace edema. Neurologic: Alert. No focality. Laboratory Data: Hemoglobin 8.7. Sodium 137, potassium 4.5, bicarb 25, BUN 89, creatinine 3.3. Jose cium of 8. Current Medications: The patient is on include: 1. Doxycycline. 2. Atorvastatin. 3. Carvedilol. 4. Lasix 80 daily. 5. Pantoprazole. Assessment And Plan: 1. Acute kidney injury secondary to cardiorenal, nonoliguric, over volume, mild uremic symptoms. I h ad long discussion with the patient and I called the daughter, #[phone]. Both agreed that the p atient is not interested in any renal replacement therapy, not interested in dialysis. Explained ris ks, benefits, alternatives including cardiac arrest or coma secondary to uremia and hyperkalemia with respiratory failure. Both understand and agree. We will hold on any renal replacement therapy. Co ntinue diuresis for the time being. We will follow up the patient. 2. Hypertension, controlled, optimal. Continue current treatment. 3. Anemia of chronic kidney disease. I am going to go ahead and send for anemia workup. We will fol low up the patient. I will give single dose of HUMZA today. 4. Congestive heart failure with exacerbation. Continue diuresis as above. We will follow up. LILY Voice ID: [id number] Report ID: [id number]
--- NOTE | 2025-02-09 12:58 | P.PN ---
Date of Service: 02/09/25 Subjective She wants to go home. She states she is unable to do most work at home. Denies any fevers, chills, chest pain Review of system 10 point review of systems otherwise negative except as per HPI Physical Examination - Vital Signs Reviewed - Physical Exam General: Alert in no apparent distress HEENT: Temporal wasting; otherwise within normal limits Respiratory: Clear bilaterally ormal air movement Cardiovascular: Regular rate/rhythm without murmurs Gastrointestinal: Soft and benign, Non-distended Musculoskeletal: No contractures Neuro: Generalized weakness with no focal deficits Assessment And Plan -Assessment/Plan (1) Acute hypoxic respiratory failure Current Visit: Yes Status: Acute -- Most likely related to congestive heart failure; patient has heart failure with reduced ejection fraction; continue with diuresing and monitor volume status closely. Needs home O2 eval (2) Heart failure with reduced ejection fraction Current Visit: Yes Status: Acute -- Continue with diuretics as mentioned above; continue with cardiac meds and strict blood pressure control. EF with 20 to 30% (3) Bilateral pleural effusion Current Visit: Yes Status: Acute -- As mentioned above (4) NSTEMI (non-ST elevated myocardial infarction); type II myocardial infarction Current Visit: Yes Status: Acute -- Continue with cardiac meds (5) COPD (chronic obstructive pulmonary disease) Current Visit: Yes Status: Chronic Qualifiers: COPD type: COPD with acute exacerbation Qualified Code(s): J44.1 - Chronic obstructive pulmonary disease with (acute) exacerbation -- Continue with inhaler therapy (6) Hyperlipidemia Current Visit: Yes Status: Chronic Qualifiers: Hyperlipidemia type: unspecified Qualified Code(s): E78.5 - Hyperlipidemia, unspecified -- Patient with CAD; will continue with statin therapy (7) Type II diabetes mellitus Current Visit: Yes Status: Chronic --Strict blood sugar control (8) JOSIAS on CKD Current Visit: Yes Status: Chronic --Likely secondary to cardiorenal syndrome. Renal ultrasound with mild hydronephrosis on the left with normal appearing kidneys on the right; renal function is stable; renal function has progressively worsened and most likely related to worsening cardiorenal functioning. Strict I's and O's. Patient is not interested in dialysis. No renal replacement therapy (9) Bicytopenia Current Visit: Yes Status: Chronic -- Monitor H&H and platelet count DVT prophylaxis with heparin Disposition: Patient has declined renal replacement therapy and with worsening kidney function alongside advanced heart failure. Will need to discuss hospice
[2025-02-10 11:15] LABS: Percent Reticulocyte Count 0.42 % (0.4-2.05); RBC Red Blood Cell Count 2.89 M/uL (3.86-4.86)
[2025-02-10 11:56] LABS: Albumin 2.5 g/dL (3.4-5.0); Anion Gap 10.2 mEq/L (5.0-15.0); Ferritin 537.4 ng/mL (8-252); Phosphorus 4.3 mg/dL (2.5-4.9); Potassium 5.2 mEq/L (3.5-5.1)
--- NOTE | 2025-02-10 13:04 | PN ---
Date of Progress Note: 02/10/2025 Subjective: The patient was admitted with cardiorenal syndrome, acute kidney injury, over volume. T he patient underwent thoracocentesis. The patient still has shortness of breath. The patient denied any nausea, any vomiting, any chest pain, except pleuritic chest pain where is the thoracocentesis. Physical Examination: Vital Signs: When I saw the patient, blood pressure 131/57, pulse of 85, afebrile. Chest: Decreased entry on the left base. Heart: S1, S2. Systolic murmur. Abdomen: Soft, nontender. Extremities: Trace edema. Neurologic: Alert. No focality. Laboratory Data: WBC 3.8, hemoglobin 8.7. Chemistry still pending. Serum protein electrophoresis s till pending. Current Medications: The patient is on include: 1. Doxycycline. 2. Epogen. 3. Atorvastatin. 4. Carvedilol 3.125. 5. Lasix 80 daily. 6. Breathing treatment. Assessment And Plan: 1. Acute kidney injury on advanced chronic kidney disease secondary to cardiorenal. I had long discu ssion yesterday with the daughter over the phone, and the patient and daughter declining dialysis or any shape of renal replacement therapy. We will continue current diuresis dose. We will continue to monitor. The patient may benefit from thoracocentesis again. 2. Hypertension, controlled, optimal. Continue current treatment. 3. Anemia of chronic kidney disease. The patient was started on HUMZA yesterday. 4. Congestive heart failure with exacerbation, currently looked to me normal volume. Continue current diuresis dose. We will follow up with the Primary and Cardiology. LILY Voice ID: [id number] Report ID: [id number]
--- NOTE | 2025-02-10 14:21 | P.PN ---
Date of Service: 02/10/25 Subjective Had a long discussion with patient. Patient does not want hospice nor does she want dialysis. She denies fevers and chills. She states her veins are very thin and weak and did not let the slot ambassador draw blood this morning. She denies any acute complaints Review of system 10 point review of systems otherwise negative except as per HPI Physical Examination - Vital Signs Reviewed - Physical Exam General: Alert in no apparent distress HEENT: Temporal wasting; otherwise within normal limits Respiratory: Clear bilaterally ormal air movement Cardiovascular: Regular rate/rhythm without murmurs Gastrointestinal: Soft and benign, Non-distended Musculoskeletal: No contractures Neuro: Generalized weakness with no focal deficits Assessment And Plan -Assessment/Plan (1) Acute hypoxic respiratory failure / Bilateral pleural effusion / Heart failure with reduced ejection fraction Current Visit: Yes Status: Acute -- Most likely related to congestive heart failure; patient has heart failure with reduced ejection fraction; continue with diuresing and monitor volume status closely. Needs home O2 eval -- Continue with diuretics as mentioned above; continue with cardiac meds and strict blood pressure control. EF with 20 to 30% NSTEMI (non-ST elevated myocardial infarction); type II myocardial infarction Current Visit: Yes Status: Acute -- Continue with cardiac meds COPD (chronic obstructive pulmonary disease) Current Visit: Yes Status: Chronic Qualifiers: COPD type: COPD with acute exacerbation Qualified Code(s): J44.1 - Chronic obstructive pulmonary disease with (acute) exacerbation -- Continue with inhaler therapy (6) Hyperlipidemia Current Visit: Yes Status: Chronic Qualifiers: Hyperlipidemia type: unspecified Qualified Code(s): E78.5 - Hyperlipidemia, unspecified -- Patient with CAD; will continue with statin therapy (7) Type II diabetes mellitus Current Visit: Yes Status: Chronic --Strict blood sugar control (8) JOSIAS on CKD / ESRD Current Visit: Yes Status: Chronic --Likely secondary to cardiorenal syndrome. Renal ultrasound with mild hydronephrosis on the left with normal appearing kidneys on the right; renal function is stable; renal function has progressively worsened and most likely related to worsening cardiorenal functioning. Strict I's and O's. Patient is not interested in dialysis. No renal replacement therapy (9) Bicytopenia Current Visit: Yes Status: Chronic -- Monitor H&H and platelet count DVT prophylaxis with heparin Disposition: Patient has declined renal replacement therapy and with worsening kidney function alongside advanced heart failure. Will need to discuss hospice
[2025-02-10] MEDS: GLUCERNA SHAKE 237 ML CAN PO SCH (21:00)
[2025-02-11 06:04] LABS: Albumin 2.5 g/dL (3.4-5.0); Anion Gap 6.5 mEq/L (5.0-15.0); Potassium 5.5 mEq/L (3.5-5.1)
[2025-02-11] MEDS: SOD POLYSTYREN SUL 15 GM/60 ML UCUP PO ONE ×2 (07:16→10:00)
[2025-02-11] MEDS: SODIUM ZIRCONIUM CYCLOSILICATE 10 GM/PKT PO ONE (13:00)
--- NOTE | 2025-02-11 16:27 | P.PN ---
Date of Service: 02/11/25 Subjective Resting in bed. She denies any acute complaints Review of system 10 point review of systems otherwise negative except as per HPI Physical Examination - Vital Signs Reviewed - Physical Exam General: Alert in no apparent distress HEENT: Temporal wasting; otherwise within normal limits Respiratory: Clear bilaterally ormal air movement Cardiovascular: Regular rate/rhythm without murmurs Gastrointestinal: Soft and benign, Non-distended Musculoskeletal: No contractures Neuro: Generalized weakness with no focal deficits Assessment And Plan -Assessment/Plan Acute hypoxic respiratory failure / Bilateral pleural effusion / Heart failure with reduced ejection fraction -- Most likely related to congestive heart failure; patient has heart failure wi th reduced ejection fraction; continue with diuresing and monitor volume status closely. Needs home O2 eval -- Continue with diuretics as mentioned above; continue with cardiac meds and strict blood pressure control. EF with 20 to 30% NSTEMI (non-ST elevated myocardial infarction); type II myocardial infarction -- Continue with cardiac meds COPD (chronic obstructive pulmonary disease) -- Continue with inhaler therapy Hyperlipidemia -- Patient with CAD; will continue with statin therapy Type II diabetes mellitus --Strict blood sugar control JOSIAS on CKD / ESRD --Likely secondary to cardiorenal syndrome. Renal ultrasound with mild hydronephrosis on the left with normal appearing kidneys on the right; renal function is stable; renal function has progressively worsened and most likely related to worsening cardiorenal functioning. Strict I's and O's. Patient is not interested in dialysis. No renal replacement therapy Bicytopenia -- Monitor H&H and platelet count Hyperkalemia: Give a dose of Kayexalate DVT prophylaxis with heparin Disposition: Patient has declined renal replacement therapy and with worsening kidney function alongside advanced heart failure. Will need to discuss hospice
--- NOTE | 2025-02-12 02:06 | PN ---
Date of Progress Note: 02/11/2025 Chief Complaint: Cardiorenal syndrome, acute kidney injury, fluid overload, renal function has decli arabella. Subjective: The patient denies headache, vision changes. Denies chest pain. She has shortness of breath. She is complaining of pleuritic chest pain. The patient had thoracentesis and she is compla ining of some chest discomfort at thoracentesis site. Review of Systems: Denies nausea, vomiting. She is complaining of pleuritic chest pain. Physical Examination: Lungs: Decreased breath sounds bilaterally at bases. Heart: S1, S2. 2/6 systolic murmur at left lower sternal border. Abdomen: Soft, nontender. Extremities: Slight edema. Impression And Plan: 1. Acute kidney injury on advanced chronic kidney disease secondary to cardiorenal syndrome. The pat ient is declining dialysis. Continue diuretic for volume control. 2. Hypertension, controlled, optimal. 3. Anemia of chronic disease. The patient will continue HUMZA. 4. Acute on chronic congestive heart failure associated with cardiorenal syndrome and advanced chroni c kidney disease with exacerbation. The patient will continue diuretic. The patient will need dialy sis for metabolic clearance, although patient declined dialysis. EB/MODL Voice ID: [id number] Report ID: [id number]
[2025-02-12 06:46] LABS: Albumin 2.4 g/dL (3.4-5.0); Anion Gap 9.8 mEq/L (5.0-15.0); Potassium 3.8 mEq/L (3.5-5.1)
[2025-02-12] MEDS: POTASSIUM CL SA 10 MEQ TAB PO ONE (09:00)
--- NOTE | 2025-02-12 09:49 | PN ---
Date of Progress Note: 02/12/2025 Subjective: The patient was admitted to the hospital with acute kidney injury secondary to cardioren al respiratory distress. The patient was over diuresed. We decreased Lasix in the last 72 hours. K idney function started improving. Physical Examination: Vital Signs: Blood pressure 100/49, pulse of 80, afebrile. Chest: Decreased entry on the left base. Heart: S1, S2. Systolic murmur. Abdomen: Soft, nontender. Extremities: No edema. Neurologic: Alert. No focality. Laboratory Data: Hemoglobin 8.7. Sodium 140, potassium 3.8, bicarb 27, BUN 79, creatinine down to 2 .2, calcium 8.4, phosphorus 4, albumin 2.4, corrected calcium is 9.8. Current Medications: The patient is on include: 1. IV iron. 2. Doxycycline. 3. Epogen. 4. Atorvastatin. 5. Carvedilol. 6. Zofran. 7. KCl. 8. Lasix 40 mg daily. Assessment And Plan: 1. Acute kidney injury secondary to cardiorenal, currently normal volume. I am going to continue to monitor the patient. I will go ahead and get repeated chest x-ray for closer evaluation for her flui d status. The patient does not need any renal replacement therapy with current kidney function. We will follow up. 2. Congestive heart failure with exacerbation, currently normal volume. Continue diuresis. 3. Hypertension, controlled, optimal. Continue current treatment. 4. Anemia of chronic kidney disease. Continue HUMZA with IV iron. 5. Pleural effusion, status post thoracocentesis as by primary. MELODY/SUNNY Voice ID: [id number] Report ID: [id number]
--- NOTE | 2025-02-12 10:34 | RAD REPORT ---
Procedure: Chest Single View HISTORY: Cough COMPARISON: February 08, 2025 FINDINGS: Moderate left and small right pleural effusions with basilar atelectasis. Mild bilateral pulmonary opacities probably pulmonary edema Cardiomegaly. Post surgical changes involve the chest. IMPRESSION: These findings probably indicate CHF. May be minimal improvement since the prior exam.
--- NOTE | 2025-02-12 14:59 | P.PN ---
Date of Service: 02/12/25 Subjective Resting in bed. She denies any acute complaints Review of system 10 point review of systems otherwise negative except as per HPI Physical Examination - Vital Signs Reviewed - Physical Exam General: Alert in no apparent distress HEENT: Temporal wasting; otherwise within normal limits Respiratory: Clear bilaterally ormal air movement Cardiovascular: Regular rate/rhythm without murmurs Gastrointestinal: Soft and benign, Non-distended Musculoskeletal: No contractures Neuro: Generalized weakness with no focal deficits Assessment And Plan -Assessment/Plan Acute hypoxic respiratory failure / Bilateral pleural effusion / Heart failure with reduced ejection fraction -- Most likely related to congestive heart failure; patient has heart failure wi th reduced ejection fraction; continue with diuresing and monitor volume status closely. Needs home O2 eval -- Continue with diuretics as mentioned above; continue with cardiac meds and strict blood pressure control. EF with 20 to 30% NSTEMI (non-ST elevated myocardial infarction); type II myocardial infarction -- Continue with cardiac meds COPD (chronic obstructive pulmonary disease) -- Continue with inhaler therapy Hyperlipidemia -- Patient with CAD; will continue with statin therapy Type II diabetes mellitus --Strict blood sugar control JOSIAS on CKD / ESRD --Likely secondary to cardiorenal syndrome. Renal ultrasound with mild hydronephrosis on the left with normal appearing kidneys on the right; renal function is actually improved; worsening cardiorenal functioning. Strict I's and O's. Patient is not interested in dialysis. No renal replacement therapy Bicytopenia -- Monitor H&H and platelet count Hyperkalemia: Give a dose of Kayexalate DVT prophylaxis with heparin Disposition: Patient has declined renal replacement therapy and with worsening kidney function alongside advanced heart failure. Will need to discuss hospice
[2025-02-13 08:23] LABS: Albumin 2.5 g/dL (3.4-5.0); Anion Gap 8.7 mEq/L (5.0-15.0); Phosphorus 4.2 mg/dL (2.5-4.9); Potassium 3.7 mEq/L (3.5-5.1)
[2025-02-13 09:50] LABS: Abnormal Protein Band 1 REPORT; Albumin, (SPE) 2.8 g/dL (3.8-4.8); Alpha-1-Globulins 0.5 g/dL (0.2-0.3); Alpha-2-Globulins 0.6 g/dL (0.5-0.9); Beta 1 Globulin 0.3 g/dL (0.4-0.6); Gamma Globulins 0.9 g/dL (0.8-1.7); INTERPRETATION REPORT; Total Protein 5.4 g/dL (6.1-8.1)
--- NOTE | 2025-02-13 11:25 | PN ---
Date of Progress Note: 02/13/2025 Subjective: The patient was admitted to the hospital with acute kidney injury secondary to cardioren al. The patient has been diuresed. Kidney function deteriorated. We decreased the Lasix. The yesica ent's kidney function has been improved. Physical Examination: Vital Signs: Blood pressure 142/67, pulse of 87. Chest: Decreased entry on the left base. Heart: S1, S2. Systolic murmur. Abdomen: Soft, nontender. Extremities: Trace edema. Neurologic: Alert. No focality. Laboratory Data: Hemoglobin 8.7. Sodium 144, potassium 3.7, bicarb 30, BUN 65, creatinine 1.9, calc ium 8.8, phosphorus 4.2, albumin 2.5, corrected calcium is 10. Current Medications: The patient is on include doxy, Epogen, carvedilol, Lasix, breathing treatment. Assessment And Plan: 1. Acute kidney injury secondary to cardiorenal, stable, look to me slightly on the wet side. I am g oing to give extra dose of Lasix today and we will follow up. I do not see the need for any renal re placement therapy for the time being given the improvement in the kidney function. The patient clear ed from the renal standpoint for discharge planning. 2. Hypertension, controlled, optimal. Continue current treatment. 3. Congestive heart failure with exacerbation, stable currently. Continue current diuresis dose. 4. Hypokalemia, we will supplement. LILY Voice ID: [id number] Report ID: [id number]
[2025-02-13] MEDS: FUROSEMIDE 40 MG/4 ML VIAL IV ONE (12:27)
[2025-02-13] MEDS: POTASSIUM CL SA 10 MEQ TAB PO ONE (12:27)
--- NOTE | 2025-02-13 14:14 | P.PN ---
Date of Service: 02/13/25 Subjective No new complaints. Resting comfortably in bed. Review of system 10 point review of systems otherwise negative except as per HPI Physical Examination - Vital Signs Reviewed - Physical Exam General: Alert in no apparent distress HEENT: Temporal wasting; otherwise within normal limits Respiratory: Clear bilaterally ormal air movement Cardiovascular: Regular rate/rhythm without murmurs Gastrointestinal: Soft and benign, Non-distended Musculoskeletal: No contractures Neuro: Generalized weakness with no focal deficits Assessment And Plan -Assessment/Plan Acute hypoxic respiratory failure / Bilateral pleural effusion / Heart failure with reduced ejection fraction -- Most likely related to congestive heart failure; patient has heart failure with reduced ejection fraction; continue with diuresing and monitor volume status closely. Needs home O2 eval -- Continue with diuretics as mentioned above; continue with cardiac meds and strict blood pressure control. EF with 20 to 30% NSTEMI (non-ST elevated myocardial infarction); type II myocardial infarction -- Continue with cardiac meds COPD (chronic obstructive pulmonary disease) -- Continue with inhaler therapy Hyperlipidemia -- Patient with CAD; will continue with statin therapy Type II diabetes mellitus --Strict blood sugar control JOSIAS on CKD / ESRD --Likely secondary to cardiorenal syndrome. Renal ultrasound with mild hydronephrosis on the left with normal appearing kidneys on the right; renal function is actually improved; worsening cardiorenal functioning. Strict I's and O's. Patient is not interested in dialysis. No renal replacement therapy Bicytopenia -- Monitor H&H and platelet count Hyperkalemia: Give a dose of Kayexalate DVT prophylaxis with heparin Disposition: Patient has declined renal replacement therapy and with worsening kidney function alongside advanced heart failure. Will need to discuss hospice
[2025-02-13] MEDS: MELATONIN 3 MG TABLET PO PRN (22:43)
[2025-02-14 07:22] LABS: Albumin 2.4 g/dL (3.4-5.0); Anion Gap 8.1 mEq/L (5.0-15.0); Phosphorus 3.7 mg/dL (2.5-4.9); Potassium 4.1 mEq/L (3.5-5.1)
--- NOTE | 2025-02-15 01:16 | PN ---
Date of Progress Note: 02/14/2025 Chief Complaint: Acute on chronic kidney injury, cardiorenal syndrome. Renal function has declined and Lasix was decreased. Review of Systems: Denies PND, orthopnea. Physical Examination: Lungs: Diminished breath sound at bases. Heart: S1, S2. 2/6 systolic murmur at left lower sternal border. Extremities: Slight edema. Impression And Plan: 1. Acute kidney injury secondary to cardiorenal syndrome. Volemia controlled. Lasix will be resumed for maintenance dose. Renal function is improving gradually. 2. Hypertension, controlled. 3. Congestive heart failure with exacerbation. Volemia stable. Adjust diuretics accordingly. 4. Hypokalemia. Supplementation was started. Monitor electrolytes and renal panel. EB/MODL Voice ID: [id number] Report ID: [id number]
[2025-02-15 05:28] VITALS: BMI 20.9
[2025-02-15 17:13] VITALS: BP 127/59; TEMP 97.8
--- NOTE | 2025-02-15 18:47 | PN ---
Date of Progress Note: 02/15/2025 Subjective: The patient was admitted to the hospital with cardiorenal syndrome, overvolume. Patient diuresed. The patient's kidney function worsened. For that reason, we decreased the diuresis. Kid dung function has been improving. Patient required the same amount of oxygen. Physical Examination: Vital Signs: Blood pressure 119/57, pulse of 85, afebrile. The patient had good urine output of 800 . Chest: Decreased entry on the right base. Heart: S1, S2. Systolic murmur. Abdomen: Soft, nontender. Extremities: Trace edema. Neurologic: Alert. No focality. Laboratory Data: WBC 3.8, hemoglobin 8.7, sodium 142, potassium 4.1, bicarb 29, BUN 59, creatinine 1 .7, GFR 29, calcium 8.5, phosphorus 3.7, albumin 2.4, corrected calcium 9.7. Current Medications: The patient on, it includes: 1. Doxycycline. 2. Heparin. 3. Epogen. 4. Lasix 80 daily. 5. Carvedilol. 6. Tylenol. 7. Pantoprazole. Assessment And Plan: 1. Acute kidney injury secondary to cardiorenal, currently acceptable normal volume. Continue curren t diuresis dose. We will monitor the patient. 2. Hypertension. Continue to utilize the blood pressure for more diuresis. 3. Congestive heart failure with exacerbation. Continue current diuresis dose. The patient cleared from the Renal standpoint for discharge planning. 4. Hypokalemia, recovered, resolved. LILY Voice ID: [id number] Report ID: [id number]
[2025-02-15 22:41] VITALS: O2SAT 98
== END 2025-02-15 20:57 | disposition home or self-care (01) | DRG 280 ==
LOC: ER 09:30 → ERHOLD 12:02 → 2ND 21:05
PROVIDERS: ADMIT Family Medicine; ATTEND Hospitalist
PROC: 5A09457 Assistance with Respiratory Ventilation, 24-96 Consecutive Hours, Continuous Positive Airway Pressure (ICD-10-PCS; 2025-01-29)
PROC: 02HV33Z Insertion of Infusion Device into Superior Vena Cava, Percutaneous Approach (ICD-10-PCS; 2025-01-30)
PROC: 0W9B3ZX Drainage of Left Pleural Cavity, Percutaneous Approach, Diagnostic (ICD-10-PCS; principal; 2025-02-01)
DX: I13.2 Hypertensive heart and chronic kidney disease with heart failure and with stage 5 chronic kidney disease, or end stage renal disease (principal); I50.33 Acute on chronic diastolic (congestive) heart failure; I21.A1 Myocardial infarction type 2; J18.9 Pneumonia, unspecified organism; J96.01 Acute respiratory failure with hypoxia; N18.6 End stage renal disease; J44.0 Chronic obstructive pulmonary disease with (acute) lower respiratory infection; N17.9 Acute kidney failure, unspecified; E87.1 Hypo-osmolality and hyponatremia; N25.81 Secondary hyperparathyroidism of renal origin; N13.30 Unspecified hydronephrosis; J44.1 Chronic obstructive pulmonary disease with (acute) exacerbation; E11.22 Type 2 diabetes mellitus with diabetic chronic kidney disease; E11.40 Type 2 diabetes mellitus with diabetic neuropathy, unspecified; D63.1 Anemia in chronic kidney disease; D50.9 Iron deficiency anemia, unspecified; D69.6 Thrombocytopenia, unspecified; E78.5 Hyperlipidemia, unspecified; E83.42 Hypomagnesemia; E87.6 Hypokalemia; E87.5 Hyperkalemia; K21.9 Gastro-esophageal reflux disease without esophagitis; E88.09 Other disorders of plasma-protein metabolism, not elsewhere classified; I08.1 Rheumatic disorders of both mitral and tricuspid valves; I27.20 Pulmonary hypertension, unspecified; I25.10 Atherosclerotic heart disease of native coronary artery without angina pectoris; I25.2 Old myocardial infarction; Z79.4 Long term (current) use of insulin; Z88.1 Allergy status to other antibiotic agents; Z95.1 Presence of aortocoronary bypass graft; Z95.5 Presence of coronary angioplasty implant and graft; Z79.82 Long term (current) use of aspirin; Z28.310 Unvaccinated for COVID-19; Z79.899 Other long term (current) drug therapy; Z91.148 Patient's other noncompliance with medication regimen for other reason
CPT/HCPCS: 32555; 36415; 71045; 71046; 71250; 74176; 76604; 76770; 80048; 80053; 80061; 80069; 82570; 82607; 82728; 82805; 82947; 83540; 83605; 83615; 83735; 83880; 83970; 84145; 84156; 84165; 84443; 84466; 84484; 85025; 85044; 85610; 85730; 87040; 87070; 88108; 88305; 89050; 93005; 93306; 94640; 94668; 96374; 97116; 97161; 99285; J0696; J1644; J1815; J1938; J2270; J2470; J2919; J3475; J7050; J7614; Q4081